=== PATIENT | female | born 1960 | race Two or more races ===

== ENCOUNTER → 2017-03-24 | Outpatient (CLI) | payer MEDICARE ==
[~2017-03-24] MED LIST: CARV6.2551 PO; LASIX PO; LEVOTHYROXINE PO; LORA1TAB12 PO; MAGN400T5 OR; OMEPRAZOLE PO; POT20T PO; PREN-96 PO
== END | disposition home or self-care (01) ==
LOC: Rad HDHVI 09:10
PROVIDERS: ATTEND Internal Medicine Cardiovascular Disease
DX: I50.23 Acute on chronic systolic (congestive) heart failure (principal); I42.0 Dilated cardiomyopathy
CPT/HCPCS: 93306

== ENCOUNTER → 2017-09-07 | Outpatient (CLI) | payer MEDICARE ==
[~2017-09-07] VITALS: Ht 165.1 cm; Wt 71.2 kg
== END | disposition home or self-care (01) ==
LOC: Rad HDHVI 13:17
PROVIDERS: ATTEND Internal Medicine Cardiovascular Disease
DX: I11.0 Hypertensive heart disease with heart failure (principal); I50.23 Acute on chronic systolic (congestive) heart failure; E78.00 Pure hypercholesterolemia, unspecified; I42.0 Dilated cardiomyopathy
CPT/HCPCS: 78472; 96374; A9505; 96375

== ENCOUNTER → 2017-09-26 | Outpatient (CLI) | payer MEDICARE ==
[2017-09-26 16:24] LABS: Basophils # (auto) 0.1 uL; Lymphocytes # (auto) 0.7 uL; Monocytes # (auto) 0.5 uL; Neutrophils # (auto) 2.3 uL; White Blood Cell 3.9 10^3/uL (4.4-10.8)
[2017-09-26 16:26] LABS: Basophils % (auto) 2.2 % (0.0-2.0); Eosinophils # (auto) 0.4 uL; Hematocrit 43.9 % (36.0-46.0); Hemoglobin 15.2 g/dL (12.2-16.2); Lymphocytes % (auto) 17.8 % (10.0-50.0); Mean Corpuscular Hemoglobin 35.1 pg (28.0-32.0); Mean Corpuscular Hgb Conc. 34.7 g/dL (32.0-36.0); Mean Corpuscular Volume 101.3 fL (80.0-100.0); Mean Platelet Volume 9.4 fL (6.9-10.8); Monocytes % (auto) 11.7 % (0.0-12.0); Neutrophils % (auto) 59.3 % (37.0-80.0); Nucleated Red Blood Cells % 0.2 %; Platelet Count (auto) 242 10^3/uL (140-450); Red Cell Distribution Width 13.1 % (11.8-14.3)
[2017-09-26 16:29] LABS: Urine Bilirubin Negative (Negative); Urine Blood Negative /uL (Negative); Urine Color Yellow (Yellow); Urine Glucose Normal (Normal); Urine Ketone Negative (Negative); Urine Nitrite Negative (Negative); Urine Urobilinogen Normal (Negative); Urine pH 7.5 (5.0-8.0)
[2017-09-26 16:40] LABS: Albumin 3.7 g/dL (3.4-5.0); BUN/Creatinine Ratio 19.4; Bilirubin, Direct 0.1 mg/dL (0-0.2); Bilirubin, Total 0.5 mg/dL (0.2-1.0); Calcium 9.3 mg/dL (8.5-10.1); Potassium 3.9 mmol/L (3.5-5.1); Total Protein 8.3 g/dL (6.4-8.2)
== END | disposition home or self-care (01) ==
LOC: Rad HDHVI 10:58
PROVIDERS: ATTEND Internal Medicine Cardiovascular Disease
DX: I10 Essential (primary) hypertension (principal); E11.9 Type 2 diabetes mellitus without complications; E78.00 Pure hypercholesterolemia, unspecified; E03.9 Hypothyroidism, unspecified; K74.1 Hepatic sclerosis; D64.9 Anemia, unspecified; E55.9 Vitamin D deficiency, unspecified; N39.0 Urinary tract infection, site not specified; I42.0 Dilated cardiomyopathy
CPT/HCPCS: 36415; 80048; 80061; 80076; 81003; 82306; 83036; 84439; 84443; 85025; 93306

== ENCOUNTER → 2018-02-28 | Outpatient (CLI) | payer MEDICARE ==
[~2018-02-28] MED LIST changes: +ASPI81TA27 PO; +BENA5TAB5 PO
[2018-02-28 14:20] VITALS: BP 143/80
[2018-02-28 15:00] VITALS: BP 134/70
[2018-02-28 15:48] LABS: Basophils # (auto) 0.1 uL; Basophils % (auto) 1.2 % (0.0-2.0); Eosinophils # (auto) 0.1 uL; Lymphocytes # (auto) 0.9 uL; Nucleated Red Blood Cells % 0.3 %
[2018-02-28 15:50] LABS: Hematocrit 43.3 % (36.0-46.0); Lymphocytes % (auto) 20.2 % (10.0-50.0); Mean Corpuscular Hemoglobin 33.9 pg (28.0-32.0); Mean Corpuscular Hgb Conc. 34.6 g/dL (32.0-36.0); Mean Corpuscular Volume 98.2 fL (80.0-100.0); Monocytes # (auto) 0.5 uL; Monocytes % (auto) 11.7 % (0.0-12.0); Neutrophils # (auto) 2.8 uL; Neutrophils % (auto) 63.9 % (37.0-80.0); Platelet Count (auto) 249 10^3/uL (140-450); Red Blood Cells 4.41 10^6/uL (4.0-5.20); Red Cell Distribution Width 13.4 % (11.8-14.3); White Blood Cell 4.4 10^3/uL (4.4-10.8)
[2018-02-28 16:01] LABS: INR 1.02 (0.9-1.15); Partial Thromboplastin Time 27.8 sec (22.64-33.71); Prothrombin Time 11.1 sec (9.37-12.3)
[2018-02-28 16:04] LABS: BUN/Creatinine Ratio 21.4; Calcium 9.2 mg/dL (8.5-10.1); Potassium 3.8 mmol/L (3.5-5.1)
== END | disposition home or self-care (01) ==
LOC: Rad HDHVI 14:04
PROVIDERS: ATTEND Internal Medicine Cardiovascular Disease
DX: Z01.818 Encounter for other preprocedural examination (principal); I51.7 Cardiomegaly; K44.9 Diaphragmatic hernia without obstruction or gangrene; Z79.01 Long term (current) use of anticoagulants
CPT/HCPCS: 36415; 71046; 80048; 85025; 85610; 85730; 93005; G0463

== ENCOUNTER 2018-03-02 09:50 | Inpatient (IN) | payer MEDICARE ==
[~2018-03-02] VITALS: Ht 165.1 cm; Wt 74.8 kg
[2018-03-02] MEDS ORDERED: LIDOCAINE 2%HCL (LOCAL ANESTH.) INJ 20ML MDV ONE (10:58)
[2018-03-02] MEDS ORDERED: VANCOMYCIN 1GM/250ML 250 ML IV ONE (11:05)
[2018-03-02] MEDS ORDERED: ceFAZolin 1GM/50ML 50 ML IV ONE (11:05)
[2018-03-02] MEDS ORDERED: fentaNYL CITRATE 100 MCG/2 ML VL ONE (11:05)
[2018-03-02] MEDS ORDERED: MIDAZOLAM HCL 1MG/1ML-2 ML VIAL ONE ×2 (11:05→12:35)
[2018-03-02] MEDS ORDERED: VANCOMYCIN HCL 1000 MG VL ONE (11:05)
[2018-03-02] MEDS ORDERED: LORazepam 0.5 MG TAB PO PRN (13:15)
[2018-03-02] MEDS ORDERED: ACETAMINOPHEN 325 MG TAB PO PRN (13:15)
[2018-03-02] MEDS ORDERED: NITROGLYCERIN 0.4 MG SL TAB SL PRN (13:15)
[2018-03-02] MEDS ORDERED: MORPHINE SULFATE 8mg/ml INJ SDV IV PRN (13:15)
[2018-03-02 16:17] VITALS: BP 118/71
[2018-03-02] MEDS: HYDROcodone-ACET 5/325MG TAB PO PRN (18:40)
[2018-03-02 20:00] VITALS: BP 106/72
[2018-03-02] MEDS: VANCOMYCIN 1GM/250ML 250 ML IV SCH (22:09)
[2018-03-02] MEDS: CARVEDILOL 3.125 MG TAB PO SCH (22:10)
[2018-03-02 23:35] VITALS: BP 106/72
[2018-03-03 04:53] VITALS: BP 122/70
[2018-03-03] MEDS: HYDROcodone-ACET 5/325MG TAB PO PRN (04:58)
[2018-03-03] MEDS ORDERED: LEVOTHYROXINE SODIUM 25 MCG TAB PO SCH (07:00)
[2018-03-03 08:00] VITALS: BP 131/74
[2018-03-03 08:27] VITALS: BP 131/74
[2018-03-03] MEDS: CARVEDILOL 3.125 MG TAB PO SCH (09:47)
[2018-03-03] MEDS: VANCOMYCIN 1GM/250ML 250 ML IV SCH (09:49)
[2018-03-03] MEDS ORDERED: PRENATAL VITAMIN TAB PO SCH (10:00)
[2018-03-03] MEDS ORDERED: POTASSIUM CHL 20 Meq TABLET PO SCH (10:00)
[2018-03-03] MEDS ORDERED: PANTOPRAZOLE 40 MG TAB PO SCH (10:00)
[2018-03-03] MEDS ORDERED: LISINOPRIL 5 MG TAB PO SCH (10:00)
[2018-03-03] MEDS ORDERED: FUROSEMIDE 40 MG TAB PO SCH (10:00)
[2018-03-03 11:27] VITALS: BP 121/79
[2018-03-03 13:39] VITALS: BP 121/79
== END 2018-03-03 17:00 | disposition home or self-care (01) | DRG 227 ==
LOC: CATH 09:50 → TELE-CENTR 09:51
PROVIDERS: ADMIT Internal Medicine Cardiovascular Disease; ATTEND Internal Medicine Cardiovascular Disease
PROC: 0JPT0PZ Removal of Cardiac Rhythm Related Device from Trunk Subcutaneous Tissue and Fascia, Open Approach (ICD-10-PCS; principal; 2018-03-02)
PROC: 0JH609Z Insertion of Cardiac Resynchronization Defibrillator Pulse Generator into Chest Subcutaneous Tissue and Fascia, Open Approach (ICD-10-PCS; 2018-03-02)
PROC: 02HK3KZ Insertion of Defibrillator Lead into Right Ventricle, Percutaneous Approach (ICD-10-PCS; 2018-03-02)
DX: T82.110A Breakdown (mechanical) of cardiac electrode, initial encounter (principal); I44.2 Atrioventricular block, complete; I42.0 Dilated cardiomyopathy; I50.22 Chronic systolic (congestive) heart failure; Y83.8 Other surgical procedures as the cause of abnormal reaction of the patient, or of later complication, without mention of misadventure at the time of the procedure; Z95.810 Presence of automatic (implantable) cardiac defibrillator; Y92.89 Other specified places as the place of occurrence of the external cause; Z45.02 Encounter for adjustment and management of automatic implantable cardiac defibrillator
CPT/HCPCS: 33216; 33264; 36415; 71045; 71046; 80048; 85025; 85610; 85730; 93005; 99152; G0463; J0690; J2250

== ENCOUNTER → 2018-10-03 | Outpatient (CLI) | payer MEDICARE, BC | END | disposition home or self-care (01) | LOC: Rad HDHVI 10:06 | PROVIDERS: ATTEND Internal Medicine Cardiovascular Disease | DX: I42.0 Dilated cardiomyopathy (principal); I50.43 Acute on chronic combined systolic (congestive) and diastolic (congestive) heart failure | CPT/HCPCS: 93306 ==

== ENCOUNTER → 2018-10-09 | Outpatient (CLI) | payer MEDICARE, BC ==
[~2018-10-09] VITALS: Ht 165.1 cm; Wt 68.0 kg
[2018-10-09 12:18] LABS: Basophils # (auto) 0.1 uL; Eosinophils # (auto) 0.2 uL; Hemoglobin 14.3 g/dL (12.2-16.2); Lymphocytes # (auto) 0.6 uL; Monocytes # (auto) 0.3 uL
[2018-10-09 12:21] LABS: Basophils % (auto) 2.7 % (0.0-2.0); Eosinophils % (auto) 8.4 % (0.0-7.0); Hematocrit 42.2 % (36.0-46.0); Lymphocytes % (auto) 22.8 % (10.0-50.0); Mean Corpuscular Hemoglobin 33.9 pg (28.0-32.0); Mean Corpuscular Hgb Conc. 33.9 g/dL (32.0-36.0); Mean Corpuscular Volume 100.2 fL (80.0-100.0); Monocytes % (auto) 12.6 % (0.0-12.0); Neutrophils # (auto) 1.4 uL; Neutrophils % (auto) 53.5 % (37.0-80.0); Nucleated Red Blood Cells % 0.5 %; Platelet Count (auto) 231 10^3/uL (140-450); Red Blood Cells 4.21 10^6/uL (4.0-5.20); Red Cell Distribution Width 12.9 % (11.8-14.3); White Blood Cell 2.6 10^3/uL (4.4-10.8)
[2018-10-09 12:34] LABS: Potassium 3.3 mmol/L (3.5-5.1)
[2018-10-09 12:35] LABS: Urine Blood Negative /uL (Negative); Urine Specific Gravity 1.011 (1.001-1.035)
[2018-10-09 12:39] LABS: Free T4 (Free Thyroxine) 0.97 ng/dL (0.89-1.76)
[2018-10-09 12:49] LABS: Albumin 3.5 g/dL (3.4-5.0); BUN/Creatinine Ratio 15.6; Bilirubin, Total 0.4 mg/dL (0.2-1.0); Calcium 8.7 mg/dL (8.5-10.1); Total Protein 7.9 g/dL (6.4-8.2)
== END | disposition home or self-care (01) ==
LOC: Rad HDHVI 09:32
PROVIDERS: ATTEND Internal Medicine Cardiovascular Disease
DX: Z23 Encounter for immunization (principal); I42.0 Dilated cardiomyopathy; I50.43 Acute on chronic combined systolic (congestive) and diastolic (congestive) heart failure; E03.9 Hypothyroidism, unspecified; E55.9 Vitamin D deficiency, unspecified; E11.9 Type 2 diabetes mellitus without complications; D51.9 Vitamin B12 deficiency anemia, unspecified; N39.0 Urinary tract infection, site not specified
CPT/HCPCS: 36415; 78452; 80053; 80061; 81003; 82306; 82607; 83036; 84439; 84443; 85025; 87086; 93017; 96374; A9500

== ENCOUNTER → 2019-01-08 | Outpatient (CLI) | payer BC, MEDICARE, OTHER ==
[2019-01-08 12:39] LABS: Basophils # (auto) 0 uL; Basophils % (auto) 0.9 % (0.0-2.0); Eosinophils # (auto) 0.2 uL; Hematocrit 43.8 % (36.0-46.0); Hemoglobin 15.2 g/dL (12.2-16.2); Lymphocytes # (auto) 0.7 uL; Mean Corpuscular Hemoglobin 33.9 pg (28.0-32.0); Mean Corpuscular Hgb Conc. 34.8 g/dL (32.0-36.0); Mean Corpuscular Volume 97.6 fL (80.0-100.0); Monocytes # (auto) 0.6 uL; Monocytes % (auto) 11.7 % (0.0-12.0); Neutrophils # (auto) 3.8 uL; Neutrophils % (auto) 71.4 % (37.0-80.0); Nucleated Red Blood Cells % 0.2 %; Platelet Count (auto) 243 10^3/uL (140-450); Red Blood Cells 4.49 10^6/uL (4.0-5.20); Red Cell Distribution Width 13.1 % (11.8-14.3); White Blood Cell 5.3 10^3/uL (4.4-10.8)
== END | disposition home or self-care (01) ==
LOC: LAB 10:41
PROVIDERS: ATTEND Internal Medicine Cardiovascular Disease
DX: E03.9 Hypothyroidism, unspecified (principal); D64.9 Anemia, unspecified
CPT/HCPCS: 36415; 84439; 84443; 85025

== ENCOUNTER → 2019-02-20 | Outpatient (CLI) | payer OTHER | END | disposition home or self-care (01) | LOC: LAB 10:24 | PROVIDERS: ATTEND Internal Medicine Cardiovascular Disease | DX: E03.9 Hypothyroidism, unspecified (principal) | CPT/HCPCS: 36415; 84443 ==

== ENCOUNTER → 2019-04-03 | Outpatient (CLI) | payer OTHER | END | disposition home or self-care (01) | LOC: LAB 10:23 | PROVIDERS: ATTEND Internal Medicine Cardiovascular Disease | DX: E03.9 Hypothyroidism, unspecified (principal) | CPT/HCPCS: 36415; 84443 ==

== ENCOUNTER → 2019-04-25 | Outpatient (CLI) | payer OTHER | END | disposition home or self-care (01) | LOC: LAB 13:28 | PROVIDERS: ATTEND Internal Medicine | DX: Z12.11 Encounter for screening for malignant neoplasm of colon (principal) | CPT/HCPCS: 82270 ==

== ENCOUNTER 2019-05-28 08:44 | Day surgery (SDC) | payer OTHER ==
[2019-05-24 13:58] LABS: Basophils # (auto) 0.1 uL; Basophils % (auto) 0.8 % (0.0-2.0); Eosinophils # (auto) 0.2 uL; Eosinophils % (auto) 2.6 % (0.0-7.0); Hematocrit 45.8 % (36.0-46.0); Hemoglobin 15.6 g/dL (12.2-16.2); Lymphocytes # (auto) 0.9 uL; Lymphocytes % (auto) 14.5 % (10.0-50.0); Mean Corpuscular Hemoglobin 33.8 pg (28.0-32.0); Mean Corpuscular Hgb Conc. 34.2 g/dL (32.0-36.0); Mean Corpuscular Volume 98.8 fL (80.0-100.0); Monocytes # (auto) 0.6 uL; Monocytes % (auto) 9.9 % (0.0-12.0); Neutrophils # (auto) 4.7 uL; Neutrophils % (auto) 72.2 % (37.0-80.0); Nucleated Red Blood Cells % 0.1 %; Platelet Count (auto) 234 10^3/uL (140-450); Red Blood Cells 4.63 10^6/uL (4.0-5.20); Red Cell Distribution Width 13.5 % (11.8-14.3); White Blood Cell 6.5 10^3/uL (4.4-10.8)
[2019-05-24 14:03] LABS: Urine Bacteria NONE SEEN /hpf (None Seen); Urine Blood Negative /uL (Negative); Urine Specific Gravity 1.021 (1.001-1.035); Urine WBC <1 /hpf (0 - 5)
[2019-05-24 14:15] LABS: INR 1.03 (0.9-1.15); Partial Thromboplastin Time 27.9 sec (23.64-32.05)
[2019-05-24 14:39] LABS: Albumin 3.7 g/dL (3.4-5.0); Calcium 9.5 mg/dL (8.5-10.1); Potassium 3.9 mmol/L (3.5-5.1)
[2019-05-24 14:43] LABS: BUN/Creatinine Ratio 26.3; Bilirubin, Total 0.6 mg/dL (0.2-1.0); Total Protein 8.4 g/dL (6.4-8.2)
[~2019-05-28] VITALS: Ht 165.1 cm; Wt 68.5 kg
[~2019-05-28 08:44] MED LIST changes: +ASPI-404 PO; -ASPI81TA27 PO; -LASIX PO; -OMEPRAZOLE PO; +PANT40TA2 PO; -POT20T PO; +TRIATAB3 PO
[2019-05-28] MEDS ORDERED: KETOROLAC TROMETH 15 mg/ml 1ML VL IV ONE (09:30)
[2019-05-28] MEDS ORDERED: MIDAZOLAM HCL 1MG/1ML-2 ML VIAL IV PRN (09:30)
[2019-05-28] MEDS ORDERED: ePHEDrine SULFATE 50 MG/ML AMP IV PRN (09:30)
[2019-05-28] MEDS ORDERED: ONDANSETRON HCL 4 MG/2 ML VIAL IV ONE (09:30)
[2019-05-28] MEDS ORDERED: HYDROmorphone HCL 2 MG/ML VL IV PRN (09:30)
[2019-05-28] MEDS ORDERED: LABETALOL HCL 5 MG/ML 4ML SYRINGE IV PRN (09:30)
[2019-05-28] MEDS ORDERED: MORPHINE SULFATE 4 MG/ML SYR/VIAL IV ONE (10:00)
[2019-05-28 10:25] VITALS: BP 113/69
== END 2019-05-28 10:39 | disposition home or self-care (01) ==
LOC: GI 08:44
PROVIDERS: ATTEND Internal Medicine Gastroenterology
DX: K22.8 Other specified diseases of esophagus (principal); K29.50 Unspecified chronic gastritis without bleeding; K44.9 Diaphragmatic hernia without obstruction or gangrene; K21.9 Gastro-esophageal reflux disease without esophagitis; E03.9 Hypothyroidism, unspecified; I11.0 Hypertensive heart disease with heart failure; I50.42 Chronic combined systolic (congestive) and diastolic (congestive) heart failure; I42.9 Cardiomyopathy, unspecified; Z79.899 Other long term (current) drug therapy; Z79.82 Long term (current) use of aspirin; Z95.0 Presence of cardiac pacemaker; Z87.891 Personal history of nicotine dependence
CPT/HCPCS: 36415; 43239; 43450; 80053; 81001; 85025; 85610; 85730; 88305; 88342; 93005; J7030

== ENCOUNTER → 2019-08-21 | Outpatient (CLI) | payer OTHER ==
[2019-08-21 13:16] LABS: Cholesterol 220 mg/dL (< 200); HDL Cholesterol 97 mg/dL (40-59); LDL Cholesterol 104 mg/dL (< 100); Triglycerides 116 mg/dL (< 150)
== END | disposition home or self-care (01) ==
LOC: LAB 09:32
PROVIDERS: ATTEND Internal Medicine Cardiovascular Disease
DX: E55.9 Vitamin D deficiency, unspecified (principal); I25.2 Old myocardial infarction; E03.9 Hypothyroidism, unspecified; Z79.899 Other long term (current) drug therapy
CPT/HCPCS: 36415; 80061; 83036

== ENCOUNTER → 2019-12-13 | Outpatient (CLI) | payer OTHER ==
[~2019-12-13] MED LIST changes: +MAGN400T40 OR; -MAGN400T5 OR
== END | disposition home or self-care (01) ==
LOC: Rad HDHVI 13:57
PROVIDERS: ATTEND Internal Medicine Cardiovascular Disease
DX: I34.0 Nonrheumatic mitral (valve) insufficiency (principal); I51.7 Cardiomegaly; I25.5 Ischemic cardiomyopathy; I50.9 Heart failure, unspecified
CPT/HCPCS: 93306

== ENCOUNTER → 2019-12-19 | Outpatient (CLI) | payer OTHER ==
[~2019-12-19] VITALS: Ht 165.1 cm; Wt 73.0 kg
[2019-12-19 12:12] LABS: Urine Blood Negative /uL (Negative); Urine Specific Gravity 1.024 (1.001-1.035)
[2019-12-19 12:22] LABS: Basophils # (auto) 0.1 uL; Basophils % (auto) 1.8 % (0.0-2.0); Eosinophils # (auto) 0.2 uL; Eosinophils % (auto) 7.4 % (0.0-7.0); Hematocrit 42.4 % (36.0-46.0); Hemoglobin 14.7 g/dL (12.2-16.2); Lymphocytes # (auto) 0.7 uL; Lymphocytes % (auto) 23.4 % (10.0-50.0); Mean Corpuscular Hemoglobin 33.8 pg (28.0-32.0); Mean Corpuscular Hgb Conc. 34.7 g/dL (32.0-36.0); Mean Corpuscular Volume 97.5 fL (80.0-100.0); Monocytes # (auto) 0.5 uL; Monocytes % (auto) 15.4 % (0.0-12.0); Neutrophils # (auto) 1.6 uL; Platelet Count (auto) 212 10^3/uL (140-450); Red Blood Cells 4.35 10^6/uL (4.0-5.20); Red Cell Distribution Width 13.4 % (11.8-14.3)
[2019-12-19 12:24] LABS: Potassium 3.7 mmol/L (3.5-5.1)
[2019-12-19 12:34] LABS: Free T4 (Free Thyroxine) 1.34 ng/dL (0.89-1.76); T3 Total 0.74 ng/mL (0.60-1.81)
[2019-12-19 12:53] LABS: Albumin 3.7 g/dL (3.4-5.0); BUN/Creatinine Ratio 19.4; Bilirubin, Total 0.6 mg/dL (0.2-1.0); Calcium 9.1 mg/dL (8.5-10.1); Total Protein 8.1 g/dL (6.4-8.2)
== END | disposition home or self-care (01) ==
LOC: Rad HDHVI 09:17
PROVIDERS: ATTEND Internal Medicine Cardiovascular Disease
DX: Z00.00 Encounter for general adult medical examination without abnormal findings (principal); E03.9 Hypothyroidism, unspecified; K90.9 Intestinal malabsorption, unspecified; N39.0 Urinary tract infection, site not specified; D51.9 Vitamin B12 deficiency anemia, unspecified; I50.43 Acute on chronic combined systolic (congestive) and diastolic (congestive) heart failure; I51.7 Cardiomegaly; I42.0 Dilated cardiomyopathy; E78.2 Mixed hyperlipidemia; R07.89 Other chest pain; Z79.899 Other long term (current) drug therapy
CPT/HCPCS: 36415; 78452; 80053; 80061; 81003; 82306; 82607; 83036; 83880; 84439; 84443; 84480; 85025; 93017; 96374; A9500

== ENCOUNTER → 2020-03-11 | Outpatient (CLI) | payer BC, MEDICARE, OTHER | END | disposition home or self-care (01) | LOC: LAB 11:02 | PROVIDERS: ATTEND Internal Medicine Cardiovascular Disease | DX: E03.9 Hypothyroidism, unspecified (principal) | CPT/HCPCS: 36415; 84439; 84443 ==

== ENCOUNTER → 2020-04-22 | Outpatient (CLI) | payer OTHER | END | disposition home or self-care (01) | LOC: LAB 10:16 | PROVIDERS: ATTEND Internal Medicine | DX: E03.9 Hypothyroidism, unspecified (principal) | CPT/HCPCS: 36415; 84443 ==

== ENCOUNTER → 2020-11-04 | Outpatient (CLI) | payer OTHER ==
[~2020-11-04] MED LIST changes: -ASPI-404 PO; +ASPI-543 PO; +IBUP400T22 PO; +LEVO100T8 PO; +LORA0.5T20 PO; -LORA1TAB12 PO; +LORA1TAB23 PO; +OMEP20TA PO
[2020-11-04 15:51] LABS: Urine Blood Negative /uL (Negative); Urine Specific Gravity 1.016 (1.001-1.035)
[2020-11-04 15:55] LABS: Basophils # (auto) 0.1 10 ^3/uL (0-0.2); Basophils % (auto) 1.7 % (0.0-2.0); Eosinophils # (auto) 0.2 10 ^3/uL (0-0.8); Eosinophils % (auto) 5.2 % (0.0-7.0); Hematocrit 28.2 % (36.0-46.0); Hemoglobin 8.9 g/dL (12.2-16.2); Lymphocytes # (auto) 1.1 10 ^3/uL (0.4-5.4); Lymphocytes % (auto) 25.2 % (10.0-50.0); Mean Corpuscular Hemoglobin 23.7 pg (28.0-32.0); Mean Corpuscular Hgb Conc. 31.4 g/dL (32.0-36.0); Mean Corpuscular Volume 75.5 fL (80.0-100.0); Monocytes # (auto) 0.4 10 ^3/uL (0-1.3); Neutrophils # (auto) 2.6 10 ^3/uL (1.6-8.6); Neutrophils % (auto) 58.9 % (37.0-80.0); Nucleated Red Blood Cells % 0.1 %; Red Blood Cells 3.74 10^6/uL (4.0-5.20); Red Cell Distribution Width 18.1 % (11.8-14.3); White Blood Cell 4.4 10^3/uL (4.4-10.8)
[2020-11-04 16:01] LABS: Albumin 3.7 g/dL (3.4-5.0); Potassium 3.8 mmol/L (3.5-5.1)
[2020-11-04 16:12] LABS: BUN/Creatinine Ratio 29.7; Bilirubin, Total 0.4 mg/dL (0.2-1.0); Calcium 8.8 mg/dL (8.5-10.1); Total Protein 7.8 g/dL (6.4-8.2)
[2020-11-04 18:51] LABS: Free T4 (Free Thyroxine) 1.05 ng/dL (0.89-1.76)
== END | disposition home or self-care (01) ==
LOC: LAB 13:10
PROVIDERS: ATTEND Internal Medicine Cardiovascular Disease
DX: D51.3 Other dietary vitamin B12 deficiency anemia (principal); I10 Essential (primary) hypertension; E11.9 Type 2 diabetes mellitus without complications; E55.9 Vitamin D deficiency, unspecified; R53.1 Weakness; R00.2 Palpitations; R30.0 Dysuria
CPT/HCPCS: 36415; 80053; 80061; 81003; 82306; 82607; 83036; 84439; 84443; 85025

== ENCOUNTER → 2020-12-12 | Outpatient (CLI) | payer OTHER ==
[~2020-12-12] MED LIST changes: -IBUP400T22 PO; -LEVO100T8 PO; -LORA0.5T20 PO; -OMEP20TA PO
== END | disposition home or self-care (01) ==
LOC: LAB 14:34
PROVIDERS: ATTEND Internal Medicine
DX: E78.5 Hyperlipidemia, unspecified (principal); D64.9 Anemia, unspecified; E03.9 Hypothyroidism, unspecified
CPT/HCPCS: 82270

== ENCOUNTER 2021-01-06 16:41 | Inpatient (IN) | payer OTHER ==
[~2021-01-06] VITALS: Ht 165.1 cm; Wt 79.9 kg
[~2021-01-06 16:41] MED LIST changes: -BENA5TAB5 PO; +BENA5TAB9 PO; -IBUP400T22 PO; -LEVO100T8 PO; -LORA0.5T20 PO; -OMEP20TA PO
[2021-01-06 17:58] LABS: Hematocrit 20.2 % (36.0-46.0); Mean Corpuscular Volume 70.4 fL (80.0-100.0); Red Blood Cells 2.87 10^6/uL (4.0-5.20); White Blood Cell 4.2 10^3/uL (4.4-10.8)
[2021-01-06 18:00] LABS: Mean Corpuscular Hemoglobin 21.4 pg (28.0-32.0); Mean Corpuscular Hgb Conc. 30.3 g/dL (32.0-36.0)
[2021-01-06 18:03] LABS: Basophils % (manual) 0 (0.0-2.0); Blast Cells 0; Hemoglobin 6.1 g/dL (12.2-16.2); Myelocytes % 0; Promyelocytes % 0; Reactive Lymphocytes 0
[2021-01-06 18:17] LABS: INR 1.07 (0.9-1.15)
[2021-01-06 18:18] LABS: Albumin 3.2 g/dL (3.4-5.0); Calcium 8.5 mg/dL (8.5-10.1); Magnesium 2.4 mg/dL (1.6-2.6); Potassium 4.3 mmol/L (3.5-5.1)
[2021-01-06 18:24] LABS: BUN/Creatinine Ratio 41.3; Bilirubin, Total 0.2 mg/dL (0.2-1.0); Total Protein 7.4 g/dL (6.4-8.2)
[2021-01-06] MEDS ORDERED: ACETAMINOPHEN 500 MG TAB PO PRN (19:15)
[2021-01-06] MEDS ORDERED: NITROGLYCERIN 0.4 MG SL TAB SL PRN (19:15)
[2021-01-06] MEDS ORDERED: ONDANSETRON HCL 4 MG/2 ML VIAL IV PRN (19:15)
[2021-01-06] MEDS ORDERED: HYDROcodone-ACET 5/325MG TAB PO PRN (19:15)
[2021-01-06] MEDS ORDERED: MORPHINE SULFATE INJECTION 2 MG/ML SYRG IV PRN ×2 (19:15)
[2021-01-06 20:23] LABS: Band Neutrophils % (manual) 2; Eosinophils % (manual) 6 (0-7); Lymphocytes % (manual) 24 (10.0-50.0); Monocytes % (manual) 4 (0-12)
[2021-01-06 20:24] LABS: Metamyelocytes % 1
[2021-01-06 20:41] LABS: % Iron Saturation 1.7 % (15-50)
[2021-01-06 20:49] LABS: Folate (Folic Acid) > 24.00 ng/mL (5.38-24)
[2021-01-06] MEDS: PANTOPRAZOLE 40 MG/10 ML VIAL INJ IV SCH (21:04)
[2021-01-06 22:18] VITALS: BP 139/69
[2021-01-06 22:44] VITALS: BP 124/66
[2021-01-06 23:05] VITALS: BP 119/51
[2021-01-06] MEDS ORDERED: LEVO100T8 PO (23:11)
[2021-01-06] MEDS ORDERED: LORA0.5T20 PO (23:11)
[2021-01-06] MEDS ORDERED: OMEP20TA PO (23:11)
[2021-01-07] VITALS (8 sets, daily range): BP systolic 109–148; BP diastolic 52–88
[2021-01-07 06:29] LABS: Red Blood Cells 3.04 10^6/uL (4.0-5.20); White Blood Cell 3.6 10^3/uL (4.4-10.8)
[2021-01-07 06:33] LABS: Hematocrit 21.9 % (36.0-46.0); Mean Corpuscular Hemoglobin 22.8 pg (28.0-32.0); Mean Corpuscular Hgb Conc. 31.6 g/dL (32.0-36.0); Mean Corpuscular Volume 72.2 fL (80.0-100.0)
[2021-01-07 06:39] LABS: Red Cell Distribution Width 20.6 % (11.8-14.3)
[2021-01-07 06:41] LABS: Hemoglobin 6.9 g/dL (12.2-16.2)
[2021-01-07 06:43] LABS: Band Neutrophils % (manual) 0; Basophils % (manual) 0 (0.0-2.0); Blast Cells 0; Metamyelocytes % 0; Myelocytes % 0; Promyelocytes % 0; Reactive Lymphocytes 0
[2021-01-07 06:46] LABS: Albumin 3.1 g/dL (3.4-5.0); Calcium 8.4 mg/dL (8.5-10.1); Potassium 3.7 mmol/L (3.5-5.1)
[2021-01-07 06:50] LABS: BUN/Creatinine Ratio 41.2; Bilirubin, Total 0.5 mg/dL (0.2-1.0); Total Protein 6.8 g/dL (6.4-8.2)
[2021-01-07 08:33] LABS: Eosinophils % (manual) 16 (0-7); Lymphocytes % (manual) 13 (10.0-50.0); Monocytes % (manual) 7 (0-12)
[2021-01-07] MEDS ORDERED: IBUP400T22 PO (09:51)
[2021-01-07 11:16] LABS: Hemoglobin 7.4 g/dL (12.2-16.2)
[2021-01-07 11:19] LABS: Hematocrit 23.1 % (36.0-46.0)
[2021-01-07 12:10] LABS: Urine Bacteria FEW /hpf (None Seen); Urine Blood Negative /uL (Negative); Urine Specific Gravity 1.018 (1.001-1.035); Urine WBC 1 /hpf (0 - 5)
[2021-01-07] MEDS ORDERED: METOCLOPRAMIDE HCL 5MG/ml INJ 2ml VIAL IV ONE (13:15)
[2021-01-07] MEDS ORDERED: OPTISON 3ml Vial for INJ IV ONE ×2 (14:00→14:02)
[2021-01-07] MEDS ORDERED: LIDOCAINE VISCOUS 2% 15ML UD ONE (15:15)
[2021-01-07] MEDS ORDERED: diphenhdrAMINE HCL 50 MG/1 ML VL ONE (15:15)
[2021-01-07] MEDS: fentaNYL CITRATE 100 MCG/2 ML VL ONE ×2 (15:35→15:38)
[2021-01-07] MEDS: MIDAZOLAM HCL 5 MG/ML-1ML VIAL ONE ×2 (15:35→15:38)
[2021-01-07] MEDS: PANTOPRAZOLE 40 MG/10 ML VIAL INJ IV SCH ×2 (18:30→21:56)
[2021-01-07] MEDS: FERROUS SULFATE 325mg EC TAB PO SCH (18:31)
[2021-01-07] MEDS: SUCRALFATE 1 GM/10 ML ORAL SUSP PO SCH ×2 (18:31→21:55)
[2021-01-08] VITALS (8 sets, daily range): BP systolic 111–139; BP diastolic 42–83
[2021-01-08 06:26] LABS: Hemoglobin 8.8 g/dL (12.2-16.2)
[2021-01-08 06:28] LABS: Hematocrit 27.3 % (36.0-46.0); Mean Corpuscular Hemoglobin 24.5 pg (28.0-32.0); Mean Corpuscular Hgb Conc. 32.2 g/dL (32.0-36.0); Mean Corpuscular Volume 76.1 fL (80.0-100.0); Red Blood Cells 3.59 10^6/uL (4.0-5.20); White Blood Cell 3.1 10^3/uL (4.4-10.8)
[2021-01-08 06:30] LABS: Calcium 8.1 mg/dL (8.5-10.1); Potassium 3.9 mmol/L (3.5-5.1)
[2021-01-08] MEDS: SUCRALFATE 1 GM/10 ML ORAL SUSP PO SCH ×2 (06:32→11:36)
[2021-01-08 06:33] LABS: BUN/Creatinine Ratio 27.3
[2021-01-08 06:47] LABS: Red Cell Distribution Width 21.7 % (11.8-14.3)
[2021-01-08 06:48] LABS: Band Neutrophils % (manual) 0; Basophils % (manual) 0 (0.0-2.0); Blast Cells 0; Metamyelocytes % 0; Myelocytes % 0; Promyelocytes % 0; Reactive Lymphocytes 0
[2021-01-08 07:41] LABS: Eosinophils % (manual) 3 (0-7); Lymphocytes % (manual) 19 (10.0-50.0); Monocytes % (manual) 20 (0-12)
[2021-01-08] MEDS ORDERED: POTASSIUM CHL 20 Meq TABLET PO ONE (08:00)
[2021-01-08] MEDS ORDERED: FUROSEMIDE 40 MG/4 ML VIAL IV ONE (08:00)
[2021-01-08] MEDS: FERROUS SULFATE 325mg EC TAB PO SCH (10:30)
[2021-01-08] MEDS: PANTOPRAZOLE 40 MG/10 ML VIAL INJ IV SCH (10:31)
== END 2021-01-08 14:00 | disposition home or self-care (01) | DRG 811 ==
LOC: ER 16:41 → TELE 19:10 → TELE-CENTR 21:49
PROVIDERS: ADMIT Nurse Practitioner Acute Care; ATTEND Internal Medicine
PROC: 0DB68ZX Excision of Stomach, Via Natural or Artificial Opening Endoscopic, Diagnostic (ICD-10-PCS; 2021-01-07)
PROC: 30233N1 Transfusion of Nonautologous Red Blood Cells into Peripheral Vein, Percutaneous Approach (ICD-10-PCS; 2021-01-07)
PROC: 0DB98ZX Excision of Duodenum, Via Natural or Artificial Opening Endoscopic, Diagnostic (ICD-10-PCS; principal; 2021-01-07 15:38)
DX: D64.9 Anemia, unspecified (principal); I50.33 Acute on chronic diastolic (congestive) heart failure; E03.9 Hypothyroidism, unspecified; K44.9 Diaphragmatic hernia without obstruction or gangrene; F17.210 Nicotine dependence, cigarettes, uncomplicated; I11.0 Hypertensive heart disease with heart failure; K29.90 Gastroduodenitis, unspecified, without bleeding; Z20.828 Contact with and (suspected) exposure to other viral communicable diseases; Z79.82 Long term (current) use of aspirin; Z80.9 Family history of malignant neoplasm, unspecified; Z82.49 Family history of ischemic heart disease and other diseases of the circulatory system; Z83.3 Family history of diabetes mellitus; Z87.11 Personal history of peptic ulcer disease; Z95.0 Presence of cardiac pacemaker
CPT/HCPCS: 36415; 36430; 43239; 71275; 80048; 80053; 81001; 82270; 82306; 82746; 83540; 83550; 83735; 83880; 84425; 84443; 84484; 85007; 85014; 85018; 85027; 85379; 85610; 85730; 86850; 86900; 86901; 86922; 87086; 87426; 93005; 93306; 93971; 96374; C9113; G0378; J2250; Q9956

== ENCOUNTER → 2021-01-06 | Outpatient (CLI) | payer OTHER ==
[~2021-01-06] MED LIST changes: +IBUP400T22 PO; +IOPAMIDOL 76 % (ISOVUE-370) 100ML BTL IV ONE; +LEVO100T8 PO; +LORA0.5T20 PO; +OMEP20TA PO
[2021-01-06 16:09] LABS: Hematocrit 20.8 % (36.0-46.0); Mean Corpuscular Hemoglobin 21.4 pg (28.0-32.0); Red Blood Cells 2.98 10^6/uL (4.0-5.20); White Blood Cell 3.8 10^3/uL (4.4-10.8)
[2021-01-06 16:13] LABS: Mean Corpuscular Hgb Conc. 30.7 g/dL (32.0-36.0); Mean Corpuscular Volume 69.8 fL (80.0-100.0); Platelet Count (auto) 322 10^3/uL (140-450); Red Cell Distribution Width 19.1 % (11.8-14.3)
[2021-01-06 16:19] LABS: Hemoglobin 6.4 g/dL (12.2-16.2)
[2021-01-06 16:20] LABS: Basophils % (manual) 0 (0.0-2.0); Blast Cells 0; Metamyelocytes % 0; Myelocytes % 0; Promyelocytes % 0; Reactive Lymphocytes 0
[2021-01-06 17:28] LABS: Band Neutrophils % (manual) 1; Eosinophils % (manual) 10 (0-7); Lymphocytes % (manual) 32 (10.0-50.0); Monocytes % (manual) 10 (0-12)
== END | disposition home or self-care (01) ==
LOC: LAB 15:31
PROVIDERS: ATTEND Internal Medicine
DX: D72.819 Decreased white blood cell count, unspecified (principal)
CPT/HCPCS: 36415; 85007; 85027; Q9967

== ENCOUNTER → 2021-01-06 | Outpatient (CLI) | payer OTHER ==
[~2021-01-06] MED LIST changes: -IOPAMIDOL 76 % (ISOVUE-370) 100ML BTL IV ONE
== END | disposition home or self-care (01) ==
LOC: XYW 15:48
PROVIDERS: ATTEND Internal Medicine
DX: M79.89 Other specified soft tissue disorders (principal)
CPT/HCPCS: 93971

== ENCOUNTER → 2021-03-05 | Outpatient (CLI) | payer OTHER ==
[~2021-03-05] MED LIST changes: +BENA5TAB5 PO; -BENA5TAB9 PO; +IBUP400T22 PO; +LEVO100T8 PO; -LEVOTHYROXINE PO; +LORA0.5T20 PO; -LORA1TAB23 PO; +OMEP20TA PO; -PANT40TA2 PO; -PREN-96 PO
[2021-03-05 13:09] LABS: Basophils # (auto) 0 10 ^3/uL (0-0.2); Platelet Count (auto) 241 10^3/uL (140-450)
[2021-03-05 13:11] LABS: Basophils % (auto) 0.7 % (0.0-2.0); Eosinophils # (auto) 0.2 10 ^3/uL (0-0.8); Eosinophils % (auto) 2.9 % (0.0-7.0); Hematocrit 40.6 % (36.0-46.0); Hemoglobin 13.2 g/dL (12.2-16.2); Lymphocytes # (auto) 0.8 10 ^3/uL (0.4-5.4); Lymphocytes % (auto) 13.8 % (10.0-50.0); Mean Corpuscular Hemoglobin 26.5 pg (28.0-32.0); Mean Corpuscular Hgb Conc. 32.4 g/dL (32.0-36.0); Mean Corpuscular Volume 81.9 fL (80.0-100.0); Monocytes # (auto) 0.5 10 ^3/uL (0-1.3); Neutrophils # (auto) 4.2 10 ^3/uL (1.6-8.6); Neutrophils % (auto) 73.6 % (37.0-80.0); Nucleated Red Blood Cells % 0.1 %; Red Blood Cells 4.96 10^6/uL (4.0-5.20); White Blood Cell 5.7 10^3/uL (4.4-10.8)
[2021-03-05 13:48] LABS: Red Cell Distribution Width 27.9 % (11.8-14.3)
== END | disposition home or self-care (01) ==
LOC: LAB 12:50
PROVIDERS: ATTEND Internal Medicine
DX: D64.9 Anemia, unspecified (principal)
CPT/HCPCS: 36415; 85025

== ENCOUNTER → 2021-04-17 | Outpatient (CLI) | payer OTHER ==
[2021-04-17 13:52] LABS: Albumin 3.6 g/dL (3.4-5.0); BUN/Creatinine Ratio 32.5; Calcium 9.3 mg/dL (8.5-10.1); Potassium 4.2 mmol/L (3.5-5.1)
[2021-04-17 13:56] LABS: Bilirubin, Total 0.4 mg/dL (0.2-1.0)
== END | disposition home or self-care (01) ==
LOC: LAB 13:06
PROVIDERS: ATTEND Internal Medicine
DX: E78.5 Hyperlipidemia, unspecified (principal); R73.03 Prediabetes
CPT/HCPCS: 36415; 80053; 80061; 82043; 83036

== ENCOUNTER → 2021-05-05 | Outpatient (CLI) | payer OTHER | END | disposition home or self-care (01) | LOC: LAB 14:47 | PROVIDERS: ATTEND Internal Medicine | DX: E03.9 Hypothyroidism, unspecified (principal) | CPT/HCPCS: 36415; 84443 ==

== ENCOUNTER 2021-05-19 16:50 | Inpatient (IN) | payer BC, MEDICARE, OTHER ==
[~2021-05-19] VITALS: Ht 165.1 cm; Wt 71.1 kg
[2021-05-19] MEDS ORDERED: ENOXAPARIN SOD 100 MG/1 ML SYRINGE SC ONE (17:30)
[2021-05-19 17:47] LABS: Basophils # (auto) 0.1 10 ^3/uL (0-0.2); Basophils % (auto) 1.4 % (0.0-2.0); Eosinophils # (auto) 0.1 10 ^3/uL (0-0.8); Eosinophils % (auto) 1.9 % (0.0-7.0); Hematocrit 42.4 % (36.0-46.0); Hemoglobin 14.4 g/dL (12.2-16.2); Lymphocytes # (auto) 1.1 10 ^3/uL (0.4-5.4); Lymphocytes % (auto) 25.2 % (10.0-50.0); Mean Corpuscular Hemoglobin 31.1 pg (28.0-32.0); Mean Corpuscular Hgb Conc. 33.8 g/dL (32.0-36.0); Monocytes # (auto) 0.5 10 ^3/uL (0-1.3); Monocytes % (auto) 11.6 % (0.0-12.0); Neutrophils # (auto) 2.6 10 ^3/uL (1.6-8.6); Neutrophils % (auto) 59.9 % (37.0-80.0); Nucleated Red Blood Cells % 0.1 %; Red Blood Cells 4.61 10^6/uL (4.0-5.20); Red Cell Distribution Width 16.8 % (11.8-14.3); White Blood Cell 4.4 10^3/uL (4.4-10.8)
[2021-05-19 18:04] LABS: Albumin 3.5 g/dL (3.4-5.0); Calcium 8.8 mg/dL (8.5-10.1); Potassium 3.8 mmol/L (3.5-5.1)
[2021-05-19 18:07] LABS: Bilirubin, Total 0.4 mg/dL (0.2-1.0); Total Protein 7.1 g/dL (6.4-8.2)
[2021-05-19 18:14] LABS: INR 1.07 (0.9-1.15); Partial Thromboplastin Time 27.4 sec (23.0-31.2)
[2021-05-19] MEDS ORDERED: NITROGLYCERIN 0.4 MG SL TAB SL PRN (20:15)
[2021-05-19] MEDS ORDERED: MORPHINE SULF INJ 2 MG/ML SYRINGE 1ML IV PRN ×2 (20:15)
[2021-05-19] MEDS ORDERED: ONDANSETRON HCL 4 MG/2 ML VIAL IV PRN (20:15)
[2021-05-19] MEDS ORDERED: ACETAMINOPHEN 500 MG TAB PO PRN (20:15)
[2021-05-19] MEDS: CARVEDILOL 3.125 MG TAB PO SCH ×2 (22:00→22:44)
[2021-05-19 22:30] VITALS: BP 105/61
[2021-05-19] MEDS: LORazepam 2MG/ML-1ML VIAL IV PRN (22:44)
[2021-05-20 01:40] VITALS: BP 105/61
[2021-05-20] MEDS ORDERED: PANT40TA2 PO (02:12)
[2021-05-20] MEDS: HYDROcodone-ACET 5/325MG TAB PO PRN (03:21)
[2021-05-20 05:00] VITALS: BP 119/76
[2021-05-20 09:00] VITALS: BP 124/81
[2021-05-20] MEDS: ENOXAPARIN SOD 80 MG/0.8ML SYRINGE SC SCH ×2 (09:06→21:32)
[2021-05-20] MEDS: BENAZEPRIL HCL 10 MG TAB PO SCH (09:06)
[2021-05-20] MEDS: LORazepam 2MG/ML-1ML VIAL IV PRN ×2 (09:07→21:32)
[2021-05-20] MEDS: CARVEDILOL 3.125 MG TAB PO SCH ×2 (09:07→21:32)
[2021-05-20] MEDS ORDERED: IOHEXOL 300 MG/ML 100ML BOTTLE IJ ONE (12:01)
[2021-05-20 13:09] VITALS: BP 116/66
[2021-05-20 16:54] VITALS: BP 102/70
[2021-05-20 22:00] VITALS: BP 122/82
[2021-05-21] MEDS: HYDROcodone-ACET 5/325MG TAB PO PRN (01:40)
[2021-05-21 05:00] VITALS: BP 109/68
[2021-05-21] MEDS: LORazepam 2MG/ML-1ML VIAL IV PRN (05:46)
[2021-05-21 09:30] VITALS: BP 111/73
[2021-05-21] MEDS: BENAZEPRIL HCL 10 MG TAB PO SCH (10:00)
[2021-05-21] MEDS ORDERED: PANTOPRAZOLE 40 MG TAB PO SCH (10:00)
[2021-05-21] MEDS: ENOXAPARIN SOD 80 MG/0.8ML SYRINGE SC SCH (10:14)
[2021-05-21] MEDS: CARVEDILOL 3.125 MG TAB PO SCH (10:15)
[2021-05-21 16:30] VITALS: BP 107/73
== END 2021-05-21 17:15 | disposition home or self-care (01) | DRG 300 ==
LOC: ER 16:50 → TELE 20:47 → TELE-WESTW 22:28 → WEST WING 05-21 12:04
PROVIDERS: ADMIT Nurse Practitioner Acute Care; ATTEND Internal Medicine
DX: I82.A12 Acute embolism and thrombosis of left axillary vein (principal); I50.22 Chronic systolic (congestive) heart failure; K21.9 Gastro-esophageal reflux disease without esophagitis; G47.00 Insomnia, unspecified; E78.5 Hyperlipidemia, unspecified; E03.9 Hypothyroidism, unspecified; Z20.822 Contact with and (suspected) exposure to COVID-19; D64.9 Anemia, unspecified; I11.0 Hypertensive heart disease with heart failure; I80.9 Phlebitis and thrombophlebitis of unspecified site; Z80.9 Family history of malignant neoplasm, unspecified; Z82.49 Family history of ischemic heart disease and other diseases of the circulatory system; Z83.3 Family history of diabetes mellitus; Z86.73 Personal history of transient ischemic attack (TIA), and cerebral infarction without residual deficits; Z87.11 Personal history of peptic ulcer disease; Z87.891 Personal history of nicotine dependence
CPT/HCPCS: 36415; 71260; 74177; 80053; 81241; 82378; 84443; 85025; 85379; 85610; 85652; 85730; 86301; 86304; 87426; 93971; 96372; G0378

== ENCOUNTER → 2021-05-25 | Outpatient (CLI) | payer OTHER ==
[~2021-05-25] MED LIST changes: -BENA5TAB5 PO; +PANT40TA2 PO
== END | disposition home or self-care (01) ==
LOC: Rad HDHVI 13:50
PROVIDERS: ATTEND Internal Medicine Cardiovascular Disease
DX: I10 Essential (primary) hypertension (principal); E78.5 Hyperlipidemia, unspecified
CPT/HCPCS: 93306

== ENCOUNTER → 2021-06-03 | Outpatient (CLI) | payer OTHER ==
[~2021-06-03] VITALS: Ht 182.9 cm; Wt 66.7 kg
== END | disposition home or self-care (01) ==
LOC: Rad HDHVI 09:25
PROVIDERS: ATTEND Internal Medicine Cardiovascular Disease
DX: I11.0 Hypertensive heart disease with heart failure (principal); I50.43 Acute on chronic combined systolic (congestive) and diastolic (congestive) heart failure; I42.0 Dilated cardiomyopathy; E78.5 Hyperlipidemia, unspecified; I25.2 Old myocardial infarction; Z95.0 Presence of cardiac pacemaker
CPT/HCPCS: 78452; 93017; 96374; A9500

== ENCOUNTER 2021-06-05 03:36 | Emergency (ER) | payer OTHER ==
[~2021-06-05] VITALS: Ht 165.1 cm; Wt 68.0 kg
[2021-06-05 08:26] VITALS: BP 121/58
== END 2021-06-05 08:31 | disposition home or self-care (01) ==
LOC: ER 03:36 → EDBD 03:36 → ER 08:26
DX: F41.1 Generalized anxiety disorder (principal); T50.905A Adverse effect of unspecified drugs, medicaments and biological substances, initial encounter; H60.92 Unspecified otitis externa, left ear; R07.89 Other chest pain; Z87.891 Personal history of nicotine dependence; Z95.0 Presence of cardiac pacemaker; Z79.899 Other long term (current) drug therapy; Y92.89 Other specified places as the place of occurrence of the external cause
CPT/HCPCS: 93005

== ENCOUNTER → 2021-06-10 | Outpatient (CLI) | payer MEDICARE, OTHER ==
[2021-06-10 16:58] LABS: Folate (Folic Acid) > 24.00 ng/mL (5.38-24)
[2021-06-11 07:06] LABS: RPR Non Reactive (Non Reactive)
== END | disposition home or self-care (01) ==
LOC: LAB 15:28
PROVIDERS: ATTEND Internal Medicine
DX: I50.22 Chronic systolic (congestive) heart failure (principal); I51.7 Cardiomegaly; E03.9 Hypothyroidism, unspecified; R73.03 Prediabetes
CPT/HCPCS: 36415; 82607; 82746; 84443; 85652; 86592

== ENCOUNTER → 2021-09-09 | Day surgery (SDC) | payer OTHER ==
[2021-09-04 14:39] LABS: Basophils # (auto) 0 10 ^3/uL (0-0.2); Basophils % (auto) 1.3 % (0.0-2.0); Eosinophils # (auto) 0.2 10 ^3/uL (0-0.8); Eosinophils % (auto) 4.3 % (0.0-7.0); Hematocrit 39.9 % (36.0-46.0); Hemoglobin 13.5 g/dL (12.2-16.2); Lymphocytes % (auto) 25.5 % (10.0-50.0); Mean Corpuscular Hemoglobin 32.7 pg (28.0-32.0); Mean Corpuscular Volume 96.3 fL (80.0-100.0); Monocytes # (auto) 0.5 10 ^3/uL (0-1.3); Monocytes % (auto) 14.2 % (0.0-12.0); Neutrophils # (auto) 2.1 10 ^3/uL (1.6-8.6); Neutrophils % (auto) 54.7 % (37.0-80.0); Red Blood Cells 4.14 10^6/uL (4.0-5.20); Red Cell Distribution Width 13.4 % (11.8-14.3); White Blood Cell 3.8 10^3/uL (4.4-10.8)
[2021-09-04 15:22] LABS: Albumin 3.8 g/dL (3.4-5.0); Calcium 9.1 mg/dL (8.5-10.1); Potassium 4.3 mmol/L (3.5-5.1)
[2021-09-04 15:24] LABS: BUN/Creatinine Ratio 31.8
[2021-09-04 15:26] LABS: Bilirubin, Total 0.4 mg/dL (0.2-1.0); Total Protein 7.8 g/dL (6.4-8.2)
[~2021-09-09] VITALS: Ht 165.1 cm; Wt 72.6 kg
[~2021-09-09] MED LIST changes: +BENA10TA15 PO; +PRENCAP69 OR; +SUCR1SUS5 PO
[2021-09-09] MEDS: fentaNYL CITRATE 100 MCG/2 ML VL ONE ×5 (15:12→15:29)
[2021-09-09] MEDS: diphenhdrAMINE HCL 50 MG/1 ML VL ONE ×2 (15:12→15:16)
[2021-09-09] MEDS: MIDAZOLAM HCL 5 MG/ML-1ML VIAL ONE ×4 (15:12→15:26)
[2021-09-09 16:30] VITALS: BP 119/65
== END | disposition home or self-care (01) ==
LOC: GI 13:40
PROVIDERS: ATTEND Internal Medicine Gastroenterology
DX: Z12.11 Encounter for screening for malignant neoplasm of colon (principal); K57.30 Diverticulosis of large intestine without perforation or abscess without bleeding; K64.8 Other hemorrhoids; K63.89 Other specified diseases of intestine; I10 Essential (primary) hypertension; K21.9 Gastro-esophageal reflux disease without esophagitis; E03.9 Hypothyroidism, unspecified; I25.2 Old myocardial infarction; Z79.82 Long term (current) use of aspirin; Z96.89 Presence of other specified functional implants; Z20.822 Contact with and (suspected) exposure to COVID-19
CPT/HCPCS: 36415; 45378; 80053; 85025; J1200; J2250; J3010; J7030; U0003; 99152; 99153

== ENCOUNTER → 2021-11-03 | Outpatient (CLI) | payer OTHER ==
[2021-11-03 15:25] LABS: Cholesterol 215 mg/dL (< 200)
[2021-11-03 15:28] LABS: HDL Cholesterol 98 mg/dL (40-59); LDL Cholesterol 91 mg/dL (< 100); Triglycerides 83 mg/dL (< 150)
== END | disposition home or self-care (01) ==
LOC: LAB 14:38
PROVIDERS: ATTEND Internal Medicine
DX: F32.9 Major depressive disorder, single episode, unspecified (principal); R73.03 Prediabetes
CPT/HCPCS: 36415; 80061; 83036; 84443

== ENCOUNTER → 2022-01-19 | Outpatient (CLI) | payer OTHER ==
[2022-01-19 13:16] LABS: Cholesterol 214 mg/dL (< 200); HDL Cholesterol 103 mg/dL (40-59); LDL Cholesterol 91 mg/dL (< 100); Triglycerides 74 mg/dL (< 150)
[2022-01-19 13:33] LABS: Basophils # (auto) 0.1 10 ^3/uL (0-0.2); Basophils % (auto) 1.2 % (0.0-2.0); Eosinophils # (auto) 0.1 10 ^3/uL (0-0.8); Eosinophils % (auto) 1.4 % (0.0-7.0); Hematocrit 39.8 % (36.0-46.0); Hemoglobin 13.5 g/dL (12.2-16.2); Lymphocytes # (auto) 0.8 10 ^3/uL (0.4-5.4); Lymphocytes % (auto) 16.6 % (10.0-50.0); Mean Corpuscular Hemoglobin 30.6 pg (28.0-32.0); Mean Corpuscular Volume 90.3 fL (80.0-100.0); Monocytes # (auto) 0.5 10 ^3/uL (0-1.3); Monocytes % (auto) 10.7 % (0.0-12.0); Neutrophils # (auto) 3.4 10 ^3/uL (1.6-8.6); Neutrophils % (auto) 70.1 % (37.0-80.0); Nucleated Red Blood Cells % 0.2 %; Red Blood Cells 4.41 10^6/uL (4.0-5.20); White Blood Cell 4.8 10^3/uL (4.4-10.8)
== END | disposition home or self-care (01) ==
LOC: LAB 11:54
PROVIDERS: ATTEND Internal Medicine
DX: Z00.00 Encounter for general adult medical examination without abnormal findings (principal); I10 Essential (primary) hypertension; R73.03 Prediabetes
CPT/HCPCS: 36415; 80061; 84443; 85025

== ENCOUNTER → 2022-04-12 | Outpatient (CLI) | payer OTHER | END | disposition home or self-care (01) | LOC: LAB 12:19 | PROVIDERS: ATTEND Internal Medicine | DX: R73.03 Prediabetes (principal); E03.9 Hypothyroidism, unspecified | CPT/HCPCS: 36415; 82043; 84443 ==

== ENCOUNTER → 2022-07-13 | Outpatient (CLI) | payer OTHER | END | disposition home or self-care (01) | LOC: LAB 12:22 | PROVIDERS: ATTEND Internal Medicine | DX: E03.9 Hypothyroidism, unspecified (principal) | CPT/HCPCS: 36415; 84443 ==

== ENCOUNTER → 2022-08-11 | Outpatient (CLI) | payer OTHER ==
[2022-08-11 10:29] LABS: Basophils # (auto) 0.1 10 ^3/uL (0-0.2); Basophils % (auto) 1.1 % (0.0-2.0); Eosinophils # (auto) 0.1 10 ^3/uL (0-0.8); Eosinophils % (auto) 1.3 % (0.0-7.0); Hematocrit 44.6 % (36.0-46.0); Hemoglobin 14.8 g/dL (12.2-16.2); Lymphocytes # (auto) 0.8 10 ^3/uL (0.4-5.4); Lymphocytes % (auto) 15.4 % (10.0-50.0); Mean Corpuscular Hemoglobin 31.1 pg (28.0-32.0); Mean Corpuscular Hgb Conc. 33.3 g/dL (32.0-36.0); Mean Corpuscular Volume 93.5 fL (80.0-100.0); Monocytes # (auto) 0.5 10 ^3/uL (0-1.3); Monocytes % (auto) 10.4 % (0.0-12.0); Neutrophils # (auto) 3.5 10 ^3/uL (1.6-8.6); Neutrophils % (auto) 71.8 % (37.0-80.0); Nucleated Red Blood Cells % 0.1 %; Red Blood Cells 4.77 10^6/uL (4.0-5.20); Red Cell Distribution Width 15.2 % (11.8-14.3); White Blood Cell 4.9 10^3/uL (4.4-10.8)
[2022-08-11 11:37] LABS: Albumin 3.9 g/dL (3.4-5.0); BUN/Creatinine Ratio 21.3; Calcium 9.1 mg/dL (8.5-10.1); Potassium 4.5 mmol/L (3.5-5.1)
[2022-08-11 11:40] LABS: Bilirubin, Total 0.5 mg/dL (0.2-1.0)
== END | disposition home or self-care (01) ==
LOC: LAB 10:11
PROVIDERS: ATTEND Internal Medicine
DX: E78.00 Pure hypercholesterolemia, unspecified (principal); E03.9 Hypothyroidism, unspecified; F41.9 Anxiety disorder, unspecified; F32.9 Major depressive disorder, single episode, unspecified
CPT/HCPCS: 36415; 80053; 80164; 84443; 85025

== ENCOUNTER → 2023-01-10 | Outpatient (CLI) | payer OTHER ==
[2023-01-10 15:39] LABS: Albumin 3.7 g/dL (3.4-5.0); Potassium 3.8 mmol/L (3.5-5.1)
[2023-01-10 15:41] LABS: Total Protein 8.2 g/dL (6.4-8.2)
[2023-01-10 16:08] LABS: BUN/Creatinine Ratio 21.6; Bilirubin, Total 0.5 mg/dL (0.2-1.0); Calcium 8.8 mg/dL (8.5-10.1)
== END | disposition home or self-care (01) ==
LOC: LAB 14:44
PROVIDERS: ATTEND Internal Medicine
DX: Z00.00 Encounter for general adult medical examination without abnormal findings (principal); Z12.11 Encounter for screening for malignant neoplasm of colon; E03.9 Hypothyroidism, unspecified; R73.03 Prediabetes
CPT/HCPCS: 36415; 80053; 80061; 82043; 83036; 84443

== ENCOUNTER → 2023-02-24 | Outpatient (CLI) | payer OTHER | END | disposition home or self-care (01) | LOC: LAB 14:36 | PROVIDERS: ATTEND Internal Medicine | DX: E03.9 Hypothyroidism, unspecified (principal) | CPT/HCPCS: 36415; 84443 ==

== ENCOUNTER → 2023-03-31 | Outpatient (CLI) | payer OTHER ==
[~2023-03-31] MED LIST changes: +BENA-19 PO; -BENA10TA15 PO; +IBUP-1453 PO; -IBUP400T22 PO; +LORA-1121 PO; -LORA0.5T20 PO
== END | disposition home or self-care (01) ==
LOC: Rad HDHVI 15:50
PROVIDERS: ATTEND Internal Medicine Cardiovascular Disease
DX: I08.1 Rheumatic disorders of both mitral and tricuspid valves (principal); I11.9 Hypertensive heart disease without heart failure; Z95.0 Presence of cardiac pacemaker
CPT/HCPCS: 93306

== ENCOUNTER → 2023-04-18 | Outpatient (CLI) | payer OTHER ==
[2023-04-18 12:21] LABS: Basophils # (auto) 0 10 ^3/uL (0-0.2); Basophils % (auto) 1.1 % (0.0-2.0); Eosinophils # (auto) 0 10 ^3/uL (0-0.8); Eosinophils % (auto) 1.3 % (0.0-7.0); Hematocrit 44.8 % (36.0-46.0); Hemoglobin 15.3 g/dL (12.2-16.2); Lymphocytes # (auto) 0.9 10 ^3/uL (0.4-5.4); Lymphocytes % (auto) 25.4 % (10.0-50.0); Mean Corpuscular Hgb Conc. 34.2 g/dL (32.0-36.0); Mean Corpuscular Volume 93.7 fL (80.0-100.0); Monocytes # (auto) 0.4 10 ^3/uL (0-1.3); Monocytes % (auto) 11.4 % (0.0-12.0); Neutrophils # (auto) 2.1 10 ^3/uL (1.6-8.6); Neutrophils % (auto) 60.8 % (37.0-80.0); Nucleated Red Blood Cells % 0.1 %; Red Blood Cells 4.78 10^6/uL (4.0-5.20); Red Cell Distribution Width 13.9 % (11.8-14.3); White Blood Cell 3.5 10^3/uL (4.4-10.8)
[2023-04-18 12:28] LABS: Urine Bacteria NONE SEEN /hpf (None Seen); Urine Blood Negative /uL (Negative); Urine Mucus MODERATE (None Seen); Urine WBC 17 /hpf (0 - 5)
[2023-04-18 12:42] LABS: Albumin 3.4 g/dL (3.4-5.0); Potassium 3.6 mmol/L (3.5-5.1)
[2023-04-18 12:50] LABS: BUN/Creatinine Ratio 21.8 (10.0-20.0); Bilirubin, Total 0.4 mg/dL (0.2-1.0); Total Protein 7.3 g/dL (6.4-8.2)
== END | disposition home or self-care (01) ==
LOC: LAB 11:44
PROVIDERS: ATTEND Internal Medicine
DX: Z12.11 Encounter for screening for malignant neoplasm of colon (principal); I42.0 Dilated cardiomyopathy; E03.9 Hypothyroidism, unspecified; E78.00 Pure hypercholesterolemia, unspecified
CPT/HCPCS: 36415; 80053; 81001; 83036; 84443; 85025

== ENCOUNTER → 2024-03-27 | Outpatient (CLI) | payer OTHER, MEDICAID ==
[~2024-03-27] MED LIST changes: -ASPI-543 PO; -BENA-19 PO; +BENA10TA90 PO; -CARV6.2551 PO; +CYAN500T3 PO; +DIGO1TAB48 PO; +ERGO1CAP23 PO; +FEXO-42 PO; +FURO1TAB33 PO; -LEVO100T8 PO; +LEVO50TA7 PO; -LORA-1121 PO; +LORA-1123 PO; -MAGN400T40 OR; +OLAN1TAB7 PO; -OMEP20TA PO; +PANT40T PO; -PANT40TA2 PO; +POTA-36 PO; -PRENCAP69 OR; +SPIR25TA PO; -SUCR1SUS5 PO; +TEMA15CA2 PO; +TRAZ-227 PO; -TRIATAB3 PO
== END | disposition home or self-care (01) ==
LOC: LAB 07:16
PROVIDERS: ATTEND Internal Medicine
DX: E55.9 Vitamin D deficiency, unspecified (principal); E03.9 Hypothyroidism, unspecified
CPT/HCPCS: 36415; 82306; 84443

== ENCOUNTER 2024-05-23 04:35 | Inpatient (IN) | payer OTHER, MEDICAID ==
[~2024-05-23] VITALS: Ht 165.1 cm; Wt 59.5 kg
[~2024-05-23 04:35] MED LIST changes: +LEVO100C3 PO; +TEMA30CA PO; +TRAZ-228 PO
[2024-05-23 09:13] LABS: Basophils # (auto) 0.1 10 ^3/uL (0-0.2); Basophils % (auto) 1.1 % (0.0-2.0); Eosinophils # (auto) 0 10 ^3/uL (0-0.8); Eosinophils % (auto) 0.3 % (0.0-7.0); Hematocrit 39.1 % (36.0-46.0); Hemoglobin 13.1 g/dL (12.2-16.2); Lymphocytes # (auto) 0.6 10 ^3/uL (0.4-5.4); Lymphocytes % (auto) 13.8 % (10.0-50.0); Mean Corpuscular Hemoglobin 30.7 pg (28.0-32.0); Mean Corpuscular Hgb Conc. 33.4 g/dL (32.0-36.0); Mean Corpuscular Volume 91.7 fL (80.0-100.0); Monocytes # (auto) 0.4 10 ^3/uL (0-1.3); Monocytes % (auto) 7.6 % (0.0-12.0); Neutrophils # (auto) 3.6 10 ^3/uL (1.6-8.6); Neutrophils % (auto) 77.2 % (37.0-80.0); Red Blood Cells 4.27 10^6/uL (4.0-5.20); Red Cell Distribution Width 16.3 % (11.8-14.3); White Blood Cell 4.7 10^3/uL (4.4-10.8)
[2024-05-23 09:23] LABS: Alanine Aminotransferase 22 U/L (7-40); Albumin 4.1 g/dL (3.2-4.8); Alkaline Phosphatase 70 U/L (46-116); Anion Gap 10 (5-15); Aspartate Aminotransferase 18 U/L (13-40); Blood Urea Nitrogen 27 mg/dL (9-23); Calcium 9.4 mg/dL (8.7-10.4); Carbon Dioxide 22 mmol/L (20-30); Chloride 109 mmol/L (98-107); Glucose 80 mg/dL (74-106); Magnesium 2.2 mg/dL (1.6-2.6); Potassium 4.1 mmol/L (3.5-5.1); Sodium 141 mmol/L (136-145)
[2024-05-23 09:24] LABS: Bilirubin, Total 1.3 mg/dL (0.2-1.0); Total Protein 6.6 g/dL (5.7-8.2)
[2024-05-23 09:33] LABS: INR 1.24 (0.9-1.15); Partial Thromboplastin Time 26.2 SEC (24.5-34.5); Prothrombin Time 12.9 sec (9.3-11.8)
[2024-05-23] MEDS ORDERED: NITROGLYCERIN 0.4 MG SL TAB SL PRN (12:00)
[2024-05-23] MEDS ORDERED: TEMAZEPAM 15 MG CAP PO PRN (12:00)
[2024-05-23] MEDS ORDERED: LORazepam 0.5 MG TAB PO PRN (12:00)
[2024-05-23] MEDS ORDERED: MORPHINE SULFATE INJ 2 MG/ml SYRG IV PRN (12:00)
[2024-05-23] MEDS ORDERED: ACETAMINOPHEN 325 MG TAB PO PRN (12:00)
[2024-05-23 12:08] LABS: Triglycerides 106 mg/dL (< 150)
[2024-05-23 12:09] LABS: LDL Cholesterol 126 mg/dL (< 100)
[2024-05-23 12:10] LABS: Cholesterol 189 mg/dL (< 200); HDL Cholesterol 59 mg/dL (40-59)
[2024-05-23 12:27] VITALS: PULSE 75; RESP 15; O2SAT 95
[2024-05-23] MEDS: SODIUM CHLORIDE 0.9% 1,000 ML IV SCH (12:30)
[2024-05-23] MEDS: ASPirin 325 MG TAB PO ONE (12:39)
[2024-05-23] MEDS: ERGOCALCIFEROL 50,000 UNIT(1.25MG) CAP PO SCH (12:40)
[2024-05-23 17:00] VITALS: BP 99/64; PULSE 74; RESP 17; TEMP 98.1; O2SAT 99
[2024-05-23 17:03] VITALS: BP 99/64; PULSE 74; RESP 17; TEMP 98.1; O2SAT 99
[2024-05-23 18:57] LABS: Basophils % (manual) 0 (0.0-2.0); Blast Cells 0; Eosinophils % (manual) 0 (0-7); Metamyelocytes % 0; Myelocytes % 0; Promyelocytes % 0; Reactive Lymphocytes 0
[2024-05-23 19:59] LABS: Band Neutrophils % (manual) 1; Lymphocytes % (manual) 15 (10.0-50.0); Monocytes % (manual) 9 (0-12); Platelet Estimate Adequate
[2024-05-23 20:00] VITALS: PULSE 69
[2024-05-23 20:00] LABS: Anisocytosis Slight
[2024-05-23] MEDS: FUROSEMIDE INJECTION 100 MG in D5W 5% 100 ML IV SCH (20:20)
[2024-05-23] MEDS: DOBUTamine 1000MCG/ML 250 ML IV SCH (20:21)
[2024-05-23 21:00] VITALS: BP 92/61; PULSE 67; RESP 18; TEMP 98.2; O2SAT 99
[2024-05-23] MEDS: PANTOPRAZOLE 40 MG TAB PO SCH (21:47)
[2024-05-23 23:05] LABS: Body Fluid Polymorphonuclear 15 % (0-25); Body Fluid Red Blood Cells 638 CUMM (0-2000); Body Fluid White Blood Cells 245 CUMM (0-200)
[2024-05-24] VITALS (8 sets, daily range): BP systolic 61–104; BP diastolic 43–73; PULSE 59–76; RESP 16–20; TEMP 97.4–98.6; O2SAT 93–99
[2024-05-24 06:45] LABS: Alanine Aminotransferase 19 U/L (7-40); Albumin 3.7 g/dL (3.2-4.8); Alkaline Phosphatase 62 U/L (46-116); Anion Gap 14 (5-15); Aspartate Aminotransferase 21 U/L (13-40); BUN/Creatinine Ratio 15.9 (10.0-20.0); Bilirubin, Total 1.5 mg/dL (0.2-1.0); Blood Urea Nitrogen 13 mg/dL (9-23); Calcium 8.6 mg/dL (8.7-10.4); Carbon Dioxide 24 mmol/L (20-30); Chloride 103 mmol/L (98-107); Glucose 84 mg/dL (74-106); Potassium 3.2 mmol/L (3.5-5.1); Sodium 141 mmol/L (136-145); Total Protein 6.6 g/dL (5.7-8.2)
[2024-05-24 06:46] LABS: Basophils # (auto) 0 10 ^3/uL (0-0.2); Basophils % (auto) 0.6 % (0.0-2.0); Eosinophils # (auto) 0.1 10 ^3/uL (0-0.8); Eosinophils % (auto) 1.1 % (0.0-7.0); Hematocrit 40.3 % (36.0-46.0); Hemoglobin 13.2 g/dL (12.2-16.2); Lymphocytes # (auto) 0.8 10 ^3/uL (0.4-5.4); Lymphocytes % (auto) 12.6 % (10.0-50.0); Mean Corpuscular Hemoglobin 29.9 pg (28.0-32.0); Mean Corpuscular Hgb Conc. 32.9 g/dL (32.0-36.0); Mean Corpuscular Volume 90.9 fL (80.0-100.0); Monocytes # (auto) 0.6 10 ^3/uL (0-1.3); Monocytes % (auto) 9.8 % (0.0-12.0); Neutrophils # (auto) 4.5 10 ^3/uL (1.6-8.6); Neutrophils % (auto) 75.9 % (37.0-80.0); Nucleated Red Blood Cells % 0.2 %; Red Blood Cells 4.43 10^6/uL (4.0-5.20); Red Cell Distribution Width 16.2 % (11.8-14.3)
[2024-05-24 09:09] LABS: T3 Total 0.43 ng/mL (0.60-1.81)
[2024-05-24 09:17] LABS: Free T4 (Free Thyroxine) 0.85 ng/dL (0.89-1.76)
[2024-05-24] MEDS: BENAZEPRIL HCL 10 MG TAB PO SCH (10:00)
[2024-05-24] MEDS ORDERED: FUROSEMIDE 20 MG TAB PO SCH (10:00)
[2024-05-24] MEDS: POTASSIUM EFFERVESENT TAB 25 MEQ PO ONE (10:46)
[2024-05-24] MEDS: CYANOCOBALAMIN 500 MCG TAB PO SCH (10:46)
[2024-05-24] MEDS: LEVOTHYROXINE SODIUM 50 MCG TAB PO SCH (10:46)
[2024-05-24] MEDS: ENOXAPARIN SOD 40 MG/0.4 ML SYRINGE SC SCH (10:47)
[2024-05-24] MEDS: DIGOXIN 0.125 MG TAB PO SCH (10:47)
[2024-05-24] MEDS: OLANZapine 5 MG TAB PO SCH (10:47)
[2024-05-24] MEDS: SPIRONOLACTONE 25 MG TAB PO SCH (10:48)
[2024-05-24] MEDS: traZODone HCL 50 MG TAB PO SCH (10:48)
[2024-05-24] MEDS: LORATADINE 10 MG TAB PO SCH (10:48)
[2024-05-24] MEDS: IBUPROFEN 400 MG TAB PO SCH (10:49)
[2024-05-24] MEDS: ASPirin 81 mg TAB PO SCH (10:49)
[2024-05-24] MEDS: POTASSIUM EFFERVESENT TAB 25 MEQ PO SCH (10:50)
[2024-05-24] MEDS ORDERED: CYAN500T3 PO (14:53)
[2024-05-24] MEDS ORDERED: AMIO200T33 PO (14:53)
[2024-05-25] VITALS (10 sets, daily range): BP systolic 64–96; BP diastolic 22–67; PULSE 60–97; RESP 15–20; TEMP 97.5–98.2; O2SAT 94–100
[2024-05-25] MEDS: SODIUM CHLORIDE 0.9% 250 ML IV ONE (01:25)
[2024-05-25 06:20] LABS: Anion Gap 11 (5-15); Carbon Dioxide 28 mmol/L (20-30); Chloride 100 mmol/L (98-107); Sodium 139 mmol/L (136-145)
[2024-05-25 06:26] LABS: BUN/Creatinine Ratio 16.7 (10.0-20.0); Blood Urea Nitrogen 18 mg/dL (9-23); Glucose 88 mg/dL (74-106); Magnesium 1.8 mg/dL (1.6-2.6)
[2024-05-25 06:38] LABS: Potassium 2.5 mmol/L (3.5-5.1)
[2024-05-25] MEDS: POTASSIUM CHL 20MEQ/100ML 100 ML IV SCH (06:57)
[2024-05-25] MEDS ORDERED: POTASSIUM CHLORIDE 20 MEQ, LIDOCAINE 1% (LOCAL ANESTH.) 2 ML in SODIUM CHL 0.9% 100 ML IV ONE ×2 (08:00→08:30)
[2024-05-25] MEDS: POTASSIUM CHLORIDE 40 MEQ, LIDOCAINE 1% (LOCAL ANESTH.) 4 ML in SODIUM CHL 0.9% 250 ML IV ONE (09:19)
[2024-05-25] MEDS: MAGNESIUM SULFATE 1GM/100ML 100 ML IV SCH (13:08)
[2024-05-25] MEDS: traZODone HCL 50 MG TAB PO SCH (21:52)
[2024-05-26 05:00] VITALS: BP 94/58; PULSE 74; RESP 17; TEMP 98.1; O2SAT 93
[2024-05-26 06:54] LABS: Calcium 9.1 mg/dL (8.7-10.4); Chloride 102 mmol/L (98-107); Potassium 3.6 mmol/L (3.5-5.1); Sodium 138 mmol/L (136-145)
[2024-05-26 06:55] LABS: Anion Gap 7 (5-15); Carbon Dioxide 29 mmol/L (20-30)
[2024-05-26 07:00] LABS: BUN/Creatinine Ratio 12.8 (10.0-20.0); Blood Urea Nitrogen 12 mg/dL (9-23); Glucose 97 mg/dL (74-106)
[2024-05-26 07:01] LABS: Magnesium 2.3 mg/dL (1.6-2.6)
[2024-05-26 08:00] VITALS: PULSE 69; RESP 18
[2024-05-26 08:23] VITALS: BP 95/58; PULSE 70; RESP 18; TEMP 98.2; O2SAT 99
[2024-05-26 13:00] VITALS: BP 94/46; PULSE 54; RESP 17; TEMP 98.3; O2SAT 96
[2024-05-26 14:02] VITALS: BP 94/46; PULSE 54; RESP 16; TEMP 98.3; O2SAT 96
[2024-05-29 06:42] LABS: Protein, Body Fluid 1.7 g/dL (.)
== END 2024-05-26 14:41 | disposition home or self-care (01) | DRG 291 ==
LOC: ER 04:35 → EDBD 04:35 → TELE 11:50 → TELE-WESTW 15:30
PROVIDERS: ADMIT Nurse Practitioner Family; ATTEND Internal Medicine
PROC: 0W993ZZ Drainage of Right Pleural Cavity, Percutaneous Approach (ICD-10-PCS; principal; 2024-05-23)
DX: I11.0 Hypertensive heart disease with heart failure (principal); I50.23 Acute on chronic systolic (congestive) heart failure; J96.00 Acute respiratory failure, unspecified whether with hypoxia or hypercapnia; J91.8 Pleural effusion in other conditions classified elsewhere; I42.0 Dilated cardiomyopathy; F41.9 Anxiety disorder, unspecified; E03.9 Hypothyroidism, unspecified; E87.6 Hypokalemia; Z95.810 Presence of automatic (implantable) cardiac defibrillator; Z86.73 Personal history of transient ischemic attack (TIA), and cerebral infarction without residual deficits; I25.2 Old myocardial infarction; Z79.899 Other long term (current) drug therapy
CPT/HCPCS: 32555; 36415; 71045; 76604; 76942; 80048; 80053; 80061; 80162; 82306; 82607; 83036; 83615; 83735; 83880; 83986; 84132; 84439; 84443; 84480; 84484; 85025; 85610; 85730; 87205; 89051; 93005; 93306; 97163; G0378; J2001; J3480; J7060

== ENCOUNTER 2024-07-05 21:48 | Inpatient (IN) | payer MEDICARE, MEDICAID, OTHER ==
[~2024-07-05] VITALS: Ht 170.2 cm; Wt 64.6 kg
[~2024-07-05 21:48] MED LIST changes: +AMIO200T33 PO; +DIGO0.12 PO; +ERGO500086 PO; +FURO20TA3 PO; -LEVO50TA7 PO; +POTA-228 PO; +SPIR25TA8 PO; -TEMA15CA2 PO; -TRAZ-227 PO; +[UNRECOGNIZED DRUG - CODE] PO
[2024-07-05 22:28] LABS: Basophils # (auto) 0 10 ^3/uL (0-0.2); Eosinophils # (auto) 0 10 ^3/uL (0-0.8); Eosinophils % (auto) 0.7 % (0.0-7.0); Hematocrit 35.1 % (36.0-46.0); Hemoglobin 11.6 g/dL (12.2-16.2); Lymphocytes # (auto) 0.9 10 ^3/uL (0.4-5.4); Lymphocytes % (auto) 21.4 % (10.0-50.0); Mean Corpuscular Hemoglobin 29.1 pg (28.0-32.0); Mean Corpuscular Volume 88.1 fL (80.0-100.0); Monocytes # (auto) 0.4 10 ^3/uL (0-1.3); Monocytes % (auto) 9.9 % (0.0-12.0); Neutrophils # (auto) 2.8 10 ^3/uL (1.6-8.6); Nucleated Red Blood Cells % 0.1 %; Platelet Count (auto) 186 10^3/uL (140-450); Red Blood Cells 3.98 10^6/uL (4.0-5.20); Red Cell Distribution Width 18.5 % (11.8-14.3); White Blood Cell 4.2 10^3/uL (4.4-10.8)
[2024-07-05 22:45] LABS: Alanine Aminotransferase 20 U/L (7-40); Albumin 3.8 g/dL (3.2-4.8); Alkaline Phosphatase 54 U/L (46-116); Anion Gap 11 (5-15); Aspartate Aminotransferase 15 U/L (13-40); BUN/Creatinine Ratio 20.2 (10.0-20.0); Bilirubin, Total 1.1 mg/dL (0.2-1.0); Blood Urea Nitrogen 26 mg/dL (9-23); Calcium 9.2 mg/dL (8.7-10.4); Carbon Dioxide 19 mmol/L (20-30); Chloride 108 mmol/L (98-107); Glucose 114 mg/dL (74-106); INR 1.38 (0.9-1.15); Magnesium 2.1 mg/dL (1.6-2.6); Partial Thromboplastin Time 25.3 SEC (24.5-34.5); Potassium 3.1 mmol/L (3.5-5.1); Prothrombin Time 14.3 sec (9.3-11.8); Sodium 138 mmol/L (136-145); Total Protein 6.5 g/dL (5.7-8.2)
[2024-07-06] VITALS (8 sets, daily range): BP systolic 130; BP diastolic 106; PULSE 69–84; RESP 15–98; TEMP 97.2; O2SAT 40–100
[2024-07-06] MEDS ORDERED: DOCUSATE SOD 100 MG CAP PO PRN (01:45)
[2024-07-06] MEDS ORDERED: HYDROcodone-ACET 5/325MG TAB PO PRN (01:45)
[2024-07-06] MEDS ORDERED: NITROGLYCERIN 0.4 MG SL TAB SL PRN (04:00)
[2024-07-06] MEDS: NITROGLYCERIN 2% OINT 1GM PKG TD ONE (04:50)
[2024-07-06] MEDS: POTASSIUM CHL 20 Meq TABLET PO ONE (05:05)
[2024-07-06] MEDS: ASPirin 325 MG TAB PO ONE (05:06)
[2024-07-06] MEDS: cefTRIAXone 1GM/50ML D5W 50 ML IV ONE (05:43)
[2024-07-06] MEDS: FUROSEMIDE 40 MG/4 ML VIAL IV ONE (05:54)
[2024-07-06] MEDS: AZITHROMYCIN 500MG/ 250ML 250 ML IV ONE (06:03)
[2024-07-06] MEDS: SODIUM CHLOR 0.9% PF (SALINE LOCK) 10ML VIAL/SYR IV SCH (06:03)
[2024-07-06] MEDS: LEVOTHYROXINE SODIUM 100 MCG TAB PO SCH (06:26)
[2024-07-06] MEDS: ALBUTEROL SULF 2.5 MG/0.5ML(0.5%) NEB SOLN NEB PRN (06:53)
[2024-07-06] MEDS: IPRATROPIUM BROM 0.5 MG/2.5ML INH SOL NEB PRN (06:53)
[2024-07-06] MEDS: MORPHINE SULFATE INJ 2 MG/ml SYRG IV PRN (06:58)
[2024-07-06] MEDS: ONDANSETRON HCL 4 MG/2 ML VIAL IV PRN (06:58)
[2024-07-06 07:11] LABS: Basophils # (auto) 0 10 ^3/uL (0-0.2); Basophils % (auto) 0.8 % (0.0-2.0); Eosinophils # (auto) 0 10 ^3/uL (0-0.8); Eosinophils % (auto) 1.1 % (0.0-7.0); Hematocrit 38.4 % (36.0-46.0); Hemoglobin 12.6 g/dL (12.2-16.2); Lymphocytes # (auto) 0.9 10 ^3/uL (0.4-5.4); Lymphocytes % (auto) 21.4 % (10.0-50.0); Mean Corpuscular Hemoglobin 29.3 pg (28.0-32.0); Mean Corpuscular Hgb Conc. 32.8 g/dL (32.0-36.0); Mean Corpuscular Volume 89.4 fL (80.0-100.0); Monocytes # (auto) 0.4 10 ^3/uL (0-1.3); Monocytes % (auto) 8.7 % (0.0-12.0); Nucleated Red Blood Cells % 0.2 %; Platelet Count (auto) 198 10^3/uL (140-450); Red Blood Cells 4.29 10^6/uL (4.0-5.20); White Blood Cell 4.4 10^3/uL (4.4-10.8)
[2024-07-06 07:27] LABS: Alanine Aminotransferase 18 U/L (7-40); Albumin 4.3 g/dL (3.2-4.8); Alkaline Phosphatase 61 U/L (46-116); Anion Gap 11 (5-15); Aspartate Aminotransferase 18 U/L (13-40); BUN/Creatinine Ratio 17.7 (10.0-20.0); Bilirubin, Total 1.1 mg/dL (0.2-1.0); Blood Urea Nitrogen 23 mg/dL (9-23); Calcium 9.3 mg/dL (8.7-10.4); Carbon Dioxide 17 mmol/L (20-30); Chloride 107 mmol/L (98-107); Glucose 136 mg/dL (74-106); Potassium 3.6 mmol/L (3.5-5.1); Sodium 135 mmol/L (136-145); Total Protein 7.3 g/dL (5.7-8.2)
[2024-07-06] MEDS: DOXYCYCLINE 100MG/250ML 250 ML IV SCH (07:45)
[2024-07-06] MEDS: cefTRIAXone 1GM/50ML D5W 50 ML IV SCH (09:07)
[2024-07-06] MEDS ORDERED: CARVEDILOL 12.5 MG TAB PO SCH (10:00)
[2024-07-06] MEDS ORDERED: FUROSEMIDE 40 MG/4 ML VIAL IV SCH (10:00)
[2024-07-06] MEDS ORDERED: AZITHROMYCIN 500MG/ 250ML 250 ML IV SCH (10:00)
[2024-07-06] MEDS: FUROSEMIDE 40 MG/4 ML VIAL IV SCH (10:18)
[2024-07-06] MEDS: SPIRONOLACTONE 25 MG TAB PO SCH (10:19)
[2024-07-06] MEDS: ASPirin 81 mg TAB PO SCH (10:19)
[2024-07-06] MEDS: LEVOTHYROXINE SODIUM 25 MCG TAB PO ONE (10:21)
[2024-07-06] MEDS: FUROSEMIDE INJECTION 100 MG in SODIUM CHL 0.9% 100 ML IV SCH (12:15)
[2024-07-06] MEDS: DOBUTamine 1000MCG/ML 250 ML IV SCH (13:45)
[2024-07-06] MEDS ORDERED: ENOXAPARIN SOD 30 MG/0.3 ML SYRINGE SC ONE (14:00)
[2024-07-06] MEDS: ENOXAPARIN SOD 40 MG/0.4 ML SYRINGE SC SCH (14:00)
[2024-07-06] MEDS: POTASSIUM EFFERVESENT TAB 25 MEQ PO ONE (14:45)
[2024-07-06] MEDS: FUROSEMIDE INJECTION 100 MG in D5W 5% 100 ML IV SCH (14:45)
[2024-07-06] MEDS: SODIUM CHLORIDE 0.9% 250 ML IV ONE (21:58)
[2024-07-06] MEDS: NOREPINEPHRINE 8 MG/250ML KIT 250 ML IV SCH (22:37)
[2024-07-07] VITALS (57 sets, daily range): BP systolic 80–127; BP diastolic 57–87; PULSE 75–91; RESP 14–36; TEMP 97–98.4; O2SAT 91–100
[2024-07-07 00:26] LABS: Urine Bacteria None Seen /hpf (None Seen)
[2024-07-07 00:38] LABS: Urine Blood 2+ /uL (Negative); Urine Clarity Clear (Clear); Urine Color Light-Yellow (Yellow); Urine Hyaline Cast MOD /lpf (0 - 2); Urine Mucus FEW (None Seen); Urine Protein, UAD Negative (Negative); Urine Specific Gravity 1.009 (1.001-1.035); Urine Urobilinogen Normal (Negative); Urine WBC 14 /hpf (0 - 5)
[2024-07-07 00:50] LABS: COVID19 ANTIGEN SOFIA FIA NEGATIVE (NEGATIVE)
[2024-07-07 00:53] LABS: Rapid Influenza A Negative (Negative); Rapid Influenza B Negative (Negative)
[2024-07-07 01:43] LABS: Creatinine, Urine 41.82 mg/dL (30.0-125.0)
[2024-07-07 04:44] LABS: Basophils # (auto) 0 10 ^3/uL (0-0.2); Basophils % (auto) 0.6 % (0.0-2.0); Eosinophils # (auto) 0 10 ^3/uL (0-0.8); Eosinophils % (auto) 0.2 % (0.0-7.0); Hematocrit 32.1 % (36.0-46.0); Lymphocytes # (auto) 0.9 10 ^3/uL (0.4-5.4); Lymphocytes % (auto) 18.8 % (10.0-50.0); Mean Corpuscular Hemoglobin 30.2 pg (28.0-32.0); Mean Corpuscular Hgb Conc. 34.2 g/dL (32.0-36.0); Mean Corpuscular Volume 88.3 fL (80.0-100.0); Monocytes # (auto) 0.5 10 ^3/uL (0-1.3); Monocytes % (auto) 10.9 % (0.0-12.0); Neutrophils # (auto) 3.3 10 ^3/uL (1.6-8.6); Neutrophils % (auto) 69.5 % (37.0-80.0); Nucleated Red Blood Cells % 0.1 %; Platelet Count (auto) 165 10^3/uL (140-450); Red Blood Cells 3.63 10^6/uL (4.0-5.20); Red Cell Distribution Width 18.4 % (11.8-14.3); White Blood Cell 4.7 10^3/uL (4.4-10.8)
[2024-07-07 05:05] LABS: Alanine Aminotransferase 30 U/L (7-40); Albumin 3.8 g/dL (3.2-4.8); Alkaline Phosphatase 53 U/L (46-116); Anion Gap 8 (5-15); Aspartate Aminotransferase 39 U/L (13-40); BUN/Creatinine Ratio 17.1 (10.0-20.0); Blood Urea Nitrogen 26 mg/dL (9-23); Calcium 8.6 mg/dL (8.7-10.4); Carbon Dioxide 22 mmol/L (20-30); Chloride 105 mmol/L (98-107); Glucose 115 mg/dL (74-106); Potassium 3.9 mmol/L (3.5-5.1); Sodium 135 mmol/L (136-145)
[2024-07-07 05:06] LABS: Bilirubin, Total 0.7 mg/dL (0.2-1.0); Total Protein 6.4 g/dL (5.7-8.2)
[2024-07-07] MEDS ORDERED: LEVOTHYROXINE SODIUM 50 MCG TAB PO SCH (06:00)
[2024-07-07] MEDS: LEVOTHYROXINE SODIUM 100 MCG TAB PO SCH (06:14)
[2024-07-07] MEDS: ACETAMINOPHEN 325 MG TAB PO PRN (12:07)
[2024-07-07] MEDS: POTASSIUM EFFERVESENT TAB 25 MEQ GT SCH (12:08)
[2024-07-07] MEDS: LIDOCAINE 1% (LOCAL ANESTH.) PF 5ml SDV ID ONE (13:36)
[2024-07-07] MEDS: BUMETANIDE 2.5mg/10ml (0.25 mg/ml) INJ IV ONE (17:17)
[2024-07-07] MEDS: NITROGLYCERIN 2% OINT 1GM PKG TD ONE (18:28)
[2024-07-07] MEDS: BUMETANIDE INJECTION 25 MG in GIVE UN-DILUTED 0 ML IV SCH (20:33)
[2024-07-07] MEDS: SODIUM CHLOR 0.9% PF (SALINE LOCK) 10ML VIAL/SYR IV SCH (22:01)
[2024-07-08] VITALS (98 sets, daily range): BP systolic 86–118; BP diastolic 50–76; PULSE 61–84; RESP 12–32; TEMP 97.3–98.3; O2SAT 95–100
[2024-07-08 04:25] LABS: Alanine Aminotransferase 29 U/L (7-40); Albumin 3.8 g/dL (3.2-4.8); Alkaline Phosphatase 53 U/L (46-116); Anion Gap 7 (5-15); Aspartate Aminotransferase 31 U/L (13-40); BUN/Creatinine Ratio 16.9 (10.0-20.0); Blood Urea Nitrogen 22 mg/dL (9-23); Calcium 8.8 mg/dL (8.7-10.4); Carbon Dioxide 28 mmol/L (20-30); Chloride 101 mmol/L (98-107); Glucose 106 mg/dL (74-106); Magnesium 1.7 mg/dL (1.6-2.6); Potassium 3.3 mmol/L (3.5-5.1); Sodium 136 mmol/L (136-145)
[2024-07-08 04:26] LABS: Bilirubin, Total 0.7 mg/dL (0.2-1.0); Phosphorus 3.8 mg/dL (2.4-5.1); Total Protein 6.4 g/dL (5.7-8.2)
[2024-07-08 04:41] LABS: Basophils # (auto) 0 10 ^3/uL (0-0.2); Basophils % (auto) 0.9 % (0.0-2.0); Eosinophils # (auto) 0.1 10 ^3/uL (0-0.8); Eosinophils % (auto) 1.3 % (0.0-7.0); Hematocrit 32.5 % (36.0-46.0); Hemoglobin 10.9 g/dL (12.2-16.2); Lymphocytes % (auto) 22.6 % (10.0-50.0); Mean Corpuscular Hemoglobin 29.5 pg (28.0-32.0); Mean Corpuscular Hgb Conc. 33.5 g/dL (32.0-36.0); Mean Corpuscular Volume 88.2 fL (80.0-100.0); Monocytes # (auto) 0.4 10 ^3/uL (0-1.3); Monocytes % (auto) 10.1 % (0.0-12.0); Neutrophils # (auto) 2.8 10 ^3/uL (1.6-8.6); Neutrophils % (auto) 65.1 % (37.0-80.0); Nucleated Red Blood Cells % 0.2 %; Platelet Count (auto) 157 10^3/uL (140-450); Red Blood Cells 3.68 10^6/uL (4.0-5.20); Red Cell Distribution Width 18.8 % (11.8-14.3); White Blood Cell 4.2 10^3/uL (4.4-10.8)
[2024-07-08 15:28] LABS: Chloride 98 mmol/L (98-107); Potassium 2.9 mmol/L (3.5-5.1); Sodium 138 mmol/L (136-145)
[2024-07-08 15:29] LABS: Anion Gap 10 (5-15); Calcium 8.6 mg/dL (8.7-10.4); Carbon Dioxide 30 mmol/L (20-30)
[2024-07-08 15:34] LABS: BUN/Creatinine Ratio 14.3 (10.0-20.0); Blood Urea Nitrogen 16 mg/dL (9-23); Glucose 98 mg/dL (74-106)
[2024-07-08] MEDS: BUMETANIDE INJECTION 25 MG in GIVE UN-DILUTED 0 ML IV SCH (15:34)
[2024-07-08] MEDS: POTASSIUM EFFERVESENT TAB 25 MEQ GT ONE ×2 (16:47→19:49)
[2024-07-09] VITALS (101 sets, daily range): BP systolic 82–181; BP diastolic 39–86; PULSE 59–89; RESP 9–28; TEMP 97.9–98.1; O2SAT 82–100
[2024-07-09 04:20] LABS: Chloride 93 mmol/L (98-107); Potassium 2.8 mmol/L (3.5-5.1); Sodium 136 mmol/L (136-145)
[2024-07-09 04:21] LABS: Anion Gap 7 (5-15); Calcium 8.4 mg/dL (8.7-10.4); Carbon Dioxide 36 mmol/L (20-30)
[2024-07-09 04:26] LABS: BUN/Creatinine Ratio 13.3 (10.0-20.0); Blood Urea Nitrogen 13 mg/dL (9-23); Glucose 88 mg/dL (74-106)
[2024-07-09 07:39] LABS: Basophils # (auto) 0 10 ^3/uL (0-0.2); Basophils % (auto) 0.2 % (0.0-2.0); Eosinophils # (auto) 0.1 10 ^3/uL (0-0.8); Eosinophils % (auto) 2.1 % (0.0-7.0); Hemoglobin 10.6 g/dL (12.2-16.2); Lymphocytes # (auto) 0.6 10 ^3/uL (0.4-5.4); Lymphocytes % (auto) 14.2 % (10.0-50.0); Mean Corpuscular Hemoglobin 29.5 pg (28.0-32.0); Mean Corpuscular Hgb Conc. 34.2 g/dL (32.0-36.0); Mean Corpuscular Volume 86.3 fL (80.0-100.0); Monocytes # (auto) 0.5 10 ^3/uL (0-1.3); Monocytes % (auto) 11.3 % (0.0-12.0); Neutrophils % (auto) 72.2 % (37.0-80.0); Nucleated Red Blood Cells % 0.3 %; Platelet Count (auto) 138 10^3/uL (140-450); Red Blood Cells 3.59 10^6/uL (4.0-5.20); Red Cell Distribution Width 18.4 % (11.8-14.3); White Blood Cell 4.2 10^3/uL (4.4-10.8)
[2024-07-09] MEDS: MAGNESIUM SULFATE 1GM/100ML 100 ML IV ONE ×2 (07:57→17:15)
[2024-07-09] MEDS: POTASSIUM CHL 20MEQ/100ML 100 ML IV SCH ×2 (09:15→16:43)
[2024-07-09] MEDS ORDERED: POTASSIUM CHL 20MEQ/100ML 100 ML IV SCH (10:45)
[2024-07-09] MEDS: MAGNESIUM SULFATE 1GM/100ML 100 ML IV SCH (16:42)
[2024-07-09] MEDS: DOBUTamine 1000MCG/ML 250 ML IV SCH (17:15)
[2024-07-09 20:37] LABS: % Iron Saturation 7.3 % (15-50)
[2024-07-09] MEDS: POTASSIUM CHL 20MEQ/100ML 100 ML IV ONE (22:50)
[2024-07-10] VITALS (95 sets, daily range): BP systolic 78–113; BP diastolic 28–80; PULSE 70–94; RESP 12–29; TEMP 97.8–98.5; O2SAT 85–100
[2024-07-10 04:01] LABS: Anion Gap 7 (5-15); Carbon Dioxide 32 mmol/L (20-30); Chloride 91 mmol/L (98-107); Potassium 4.2 mmol/L (3.5-5.1)
[2024-07-10 04:03] LABS: Calcium 9.2 mg/dL (8.7-10.4)
[2024-07-10 04:07] LABS: Glucose 108 mg/dL (74-106)
[2024-07-10 04:08] LABS: BUN/Creatinine Ratio 11.1 (10.0-20.0); Blood Urea Nitrogen 12 mg/dL (9-23); Magnesium 2.1 mg/dL (1.6-2.6)
[2024-07-10 04:17] LABS: Sodium 130 mmol/L (136-145)
[2024-07-10] MEDS: DOBUTamine 1000MCG/ML 250 ML IV SCH (10:51)
[2024-07-10] MEDS: BUMETANIDE 2.5mg/10ml (0.25 mg/ml) INJ IV SCH (10:53)
[2024-07-10] MEDS: Ensure HIGH Protein Chocolate 8oz Bottle PO SCH (12:00)
[2024-07-10] MEDS: IRON SUCROSE COMPLEX 100 ML IV SCH (14:32)
[2024-07-10] MEDS ORDERED: LORA-1121 PO (18:50)
[2024-07-10] MEDS ORDERED: TRAZ-228 PO (18:50)
[2024-07-11] VITALS (101 sets, daily range): BP systolic 79–111; BP diastolic 35–74; PULSE 64–97; RESP 12–29; TEMP 97.3–98.7; O2SAT 80–100
[2024-07-11 04:03] LABS: Basophils # (auto) 0.1 10 ^3/uL (0-0.2); Basophils % (auto) 1.6 % (0.0-2.0); Eosinophils # (auto) 0.1 10 ^3/uL (0-0.8); Eosinophils % (auto) 1.7 % (0.0-7.0); Hematocrit 34.3 % (36.0-46.0); Hemoglobin 11.8 g/dL (12.2-16.2); Lymphocytes # (auto) 0.8 10 ^3/uL (0.4-5.4); Mean Corpuscular Hemoglobin 29.5 pg (28.0-32.0); Mean Corpuscular Hgb Conc. 34.4 g/dL (32.0-36.0); Mean Corpuscular Volume 85.7 fL (80.0-100.0); Monocytes # (auto) 0.5 10 ^3/uL (0-1.3); Monocytes % (auto) 12.5 % (0.0-12.0); Neutrophils # (auto) 2.8 10 ^3/uL (1.6-8.6); Neutrophils % (auto) 66.2 % (37.0-80.0); Nucleated Red Blood Cells % 0.2 %; Platelet Count (auto) 195 10^3/uL (140-450); Red Blood Cells 4.01 10^6/uL (4.0-5.20); Red Cell Distribution Width 18.7 % (11.8-14.3); White Blood Cell 4.3 10^3/uL (4.4-10.8)
[2024-07-11 04:10] LABS: Alkaline Phosphatase 68 U/L (46-116)
[2024-07-11 04:11] LABS: Alanine Aminotransferase 30 U/L (7-40); Albumin 4.1 g/dL (3.2-4.8); Anion Gap 9 (5-15); Aspartate Aminotransferase 16 U/L (13-40); BUN/Creatinine Ratio 11.5 (10.0-20.0); Bilirubin, Total 0.9 mg/dL (0.2-1.0); Blood Urea Nitrogen 15 mg/dL (9-23); Carbon Dioxide 29 mmol/L (20-30); Chloride 91 mmol/L (98-107); Glucose 137 mg/dL (74-106); Potassium 3.6 mmol/L (3.5-5.1); Sodium 129 mmol/L (136-145); Total Protein 6.3 g/dL (5.7-8.2)
[2024-07-11] MEDS: POTASSIUM EFFERVESENT TAB 25 MEQ PO ONE (09:15)
[2024-07-11] MEDS: AMIODARONE HCL 200 MG TAB PO SCH (10:52)
[2024-07-11] MEDS: BUMETANIDE 1 MG TAB PO SCH (10:52)
[2024-07-11] MEDS: NOREPINEPHRINE 8 MG/250ML KIT 250 ML IV SCH (13:09)
[2024-07-11] MEDS: POTASSIUM CHL 20 Meq TABLET PO ONE (18:28)
[2024-07-12] VITALS (100 sets, daily range): BP systolic 80–120; BP diastolic 38–83; PULSE 75–93; RESP 13–33; TEMP 96.7–98.6; O2SAT 84–100
[2024-07-12] MEDS: traZODone HCL 50 MG TAB PO PRN (00:53)
[2024-07-12 04:45] LABS: Basophils # (auto) 0 10 ^3/uL (0-0.2); Basophils % (auto) 0.8 % (0.0-2.0); Eosinophils # (auto) 0 10 ^3/uL (0-0.8); Eosinophils % (auto) 0.3 % (0.0-7.0); Hematocrit 33.7 % (36.0-46.0); Hemoglobin 11.4 g/dL (12.2-16.2); Lymphocytes # (auto) 0.4 10 ^3/uL (0.4-5.4); Mean Corpuscular Hemoglobin 29.1 pg (28.0-32.0); Mean Corpuscular Hgb Conc. 33.7 g/dL (32.0-36.0); Mean Corpuscular Volume 86.5 fL (80.0-100.0); Monocytes # (auto) 0.5 10 ^3/uL (0-1.3); Monocytes % (auto) 11.4 % (0.0-12.0); Neutrophils # (auto) 3.5 10 ^3/uL (1.6-8.6); Neutrophils % (auto) 79.5 % (37.0-80.0); Nucleated Red Blood Cells % 0.2 %; Platelet Count (auto) 177 10^3/uL (140-450); Red Cell Distribution Width 18.5 % (11.8-14.3); White Blood Cell 4.4 10^3/uL (4.4-10.8)
[2024-07-12 04:52] LABS: Calcium 9.6 mg/dL (8.7-10.4); Chloride 94 mmol/L (98-107); Potassium 3.5 mmol/L (3.5-5.1); Sodium 130 mmol/L (136-145)
[2024-07-12 04:53] LABS: Anion Gap 8 (5-15); Carbon Dioxide 28 mmol/L (20-30)
[2024-07-12 04:58] LABS: Blood Urea Nitrogen 14 mg/dL (9-23); Glucose 118 mg/dL (74-106)
[2024-07-12] MEDS: LORazepam 0.5 MG TAB PO PRN (16:22)
[2024-07-12] MEDS: POTASSIUM CHL 20 Meq TABLET PO ONE (16:22)
[2024-07-13] VITALS (102 sets, daily range): BP systolic 75–200; BP diastolic 43–146; PULSE 66–101; RESP 13–43; TEMP 97.8–100.6; O2SAT 8–100
[2024-07-13 04:33] LABS: Anion Gap 8 (5-15); Calcium 9.3 mg/dL (8.7-10.4); Carbon Dioxide 26 mmol/L (20-30); Chloride 96 mmol/L (98-107); Potassium 3.7 mmol/L (3.5-5.1); Sodium 130 mmol/L (136-145)
[2024-07-13 04:38] LABS: Glucose 104 mg/dL (74-106)
[2024-07-13 04:39] LABS: BUN/Creatinine Ratio 12.6 (10.0-20.0); Blood Urea Nitrogen 14 mg/dL (9-23); Magnesium 1.7 mg/dL (1.6-2.6)
[2024-07-13] MEDS: MAGNESIUM SULFATE 1GM/100ML 100 ML IV ONE (06:13)
[2024-07-13 11:56] LABS: Erythrocyte Sedimentation Rate 8 mm/hr (0-20)
[2024-07-13] MEDS ORDERED: PIPERACILLIN-TAZOB 3.375GM 100 ML IV SCH (14:00)
[2024-07-13] MEDS: PIPERACILLIN-TAZOB 3.375GM 100 ML IV SCH (17:57)
[2024-07-13] MEDS: LORazepam 0.5 MG TAB PO ONE (18:01)
[2024-07-13] MEDS: LORazepam 2MG/ML-1ML VIAL ONE (18:12)
[2024-07-13] MEDS: LORazepam 2MG/ML-1ML VIAL IV ONE (18:12)
[2024-07-13] MEDS ORDERED: FUROSEMIDE 40 MG/4 ML VIAL IV ONE (18:30)
[2024-07-13] MEDS: BUMETANIDE 1mg/4ml VIAL (0.25mg/ml) ONE (18:41)
[2024-07-13 19:33] LABS: Base Excess -10.2 mmol/L (-2.0-3.0)
[2024-07-13] MEDS: ETOMIDATE (2MG/ML) 20ML VIAL IV ONE (19:42)
[2024-07-13] MEDS: ROCURONIUM 10MG/ML 10ML VIAL IV ONE (19:44)
[2024-07-13] MEDS: fentaNYL Drip 2500mCg/250mlNS 250 ML IV ONE (19:50)
[2024-07-13] MEDS: MIDAZOLAM DRIP 50 mg/50mL 50 ML IV ONE (19:50)
[2024-07-13] MEDS: BUMETANIDE 2.5mg/10ml (0.25 mg/ml) INJ IV ONE (19:51)
[2024-07-13] MEDS: fentaNYL Drip 2500mCg/250mlNS 250 ML IV SCH (20:00)
[2024-07-13] MEDS: MIDAZOLAM DRIP 50 mg/50mL 50 ML IV SCH (20:00)
[2024-07-13 22:45] LABS: Base Excess -2.5 mmol/L (-2.0-3.0)
[2024-07-14] VITALS (117 sets, daily range): BP systolic 77–123; BP diastolic 28–71; PULSE 65–105; RESP 14–26; TEMP 99–100.6; O2SAT 99–100
[2024-07-14 04:07] LABS: Basophils # (auto) 0.1 10 ^3/uL (0-0.2); Basophils % (auto) 0.6 % (0.0-2.0); Eosinophils # (auto) 0 10 ^3/uL (0-0.8); Hemoglobin 12.4 g/dL (12.2-16.2); Lymphocytes # (auto) 0.8 10 ^3/uL (0.4-5.4); Lymphocytes % (auto) 8.5 % (10.0-50.0); Mean Corpuscular Hemoglobin 29.6 pg (28.0-32.0); Mean Corpuscular Hgb Conc. 33.4 g/dL (32.0-36.0); Mean Corpuscular Volume 88.5 fL (80.0-100.0); Monocytes # (auto) 1.6 10 ^3/uL (0-1.3); Monocytes % (auto) 16.7 % (0.0-12.0); Neutrophils # (auto) 7.3 10 ^3/uL (1.6-8.6); Neutrophils % (auto) 74.2 % (37.0-80.0); Nucleated Red Blood Cells % 4.9 %; Platelet Count (auto) 155 10^3/uL (140-450); Red Blood Cells 4.19 10^6/uL (4.0-5.20); Red Cell Distribution Width 18.9 % (11.8-14.3); White Blood Cell 9.8 10^3/uL (4.4-10.8)
[2024-07-14 04:19] LABS: Alanine Aminotransferase 225 U/L (7-40); Albumin 3.8 g/dL (3.2-4.8); Alkaline Phosphatase 73 U/L (46-116); Anion Gap 18 (5-15); Aspartate Aminotransferase 425 U/L (13-40); Bilirubin, Total 1.2 mg/dL (0.2-1.0); Blood Urea Nitrogen 17 mg/dL (9-23); Calcium 9.8 mg/dL (8.7-10.4); Carbon Dioxide 19 mmol/L (20-30); Chloride 92 mmol/L (98-107); Glucose 103 mg/dL (74-106); Magnesium 2.1 mg/dL (1.6-2.6); Phosphorus 3.7 mg/dL (2.4-5.1); Potassium 4.2 mmol/L (3.5-5.1); Sodium 129 mmol/L (136-145); Total Protein 6.8 g/dL (5.7-8.2)
[2024-07-14 07:25] LABS: Base Excess 4.2 mmol/L (-2.0-3.0)
[2024-07-14] MEDS: BUMETANIDE 2.5mg/10ml (0.25 mg/ml) INJ IV ONE (16:21)
[2024-07-14] MEDS: DOBUTamine 1000MCG/ML 250 ML IV SCH (17:38)
[2024-07-14] MEDS: NOREPINEPHRINE BITARTRATE 16 MG in SODIUM CHL 0.9% 234 ML IV SCH (18:41)
[2024-07-14] MEDS: PHENYLEPHRINE IV 250 ML IV SCH (18:59)
[2024-07-14] MEDS: FUROSEMIDE INJECTION 100 MG in D5W 5% 100 ML IV SCH (19:12)
[2024-07-14] MEDS ORDERED: PHENYLEPHRINE INJ 40 MG in SODIUM CHL 0.9% 246 ML IV SCH (19:15)
[2024-07-14] MEDS: VASOPRESSIN 20 UNITS in SODIUM CHL 0.9% 99 ML IV SCH (20:45)
[2024-07-14] MEDS ORDERED: VASOPRESSIN 40 UNITS in D5W 5% 198 ML IV SCH (20:45)
[2024-07-14] MEDS: HYDROCORTISONE SOD SUCC 100 MG/2ML INJ VIAL IV SCH (21:25)
[2024-07-14] MEDS: PHENYLEPHRINE INJ 80 MG in SODIUM CHL 0.9% 242 ML IV SCH (23:05)
[2024-07-15] VITALS (105 sets, daily range): BP systolic 82–123; BP diastolic 36–73; PULSE 72–106; RESP 15–26; TEMP 97.7–100.2; O2SAT 98–100
[2024-07-15] MEDS: NOREPINEPHRINE BITARTRATE 32 MG in SODIUM CHL 0.9% 218 ML IV SCH (02:33)
[2024-07-15 03:28] LABS: Chloride 96 mmol/L (98-107); Potassium 3.2 mmol/L (3.5-5.1); Sodium 129 mmol/L (136-145)
[2024-07-15 03:29] LABS: Anion Gap 13 (5-15); Calcium 8.7 mg/dL (8.7-10.4); Carbon Dioxide 20 mmol/L (20-30)
[2024-07-15 03:34] LABS: Blood Urea Nitrogen 13 mg/dL (9-23); Glucose 116 mg/dL (74-106)
[2024-07-15] MEDS: POTASSIUM CHL 20MEQ/100ML 200 ML IV ONE (06:58)
[2024-07-15] MEDS: POTASSIUM CHL 20MEQ/100ML 100 ML IV SCH (06:58)
[2024-07-15] MEDS: DOBUTamine 1000MCG/ML 250 ML IV SCH (07:30)
[2024-07-15 08:23] LABS: Base Excess -4.9 mmol/L (-2.0-3.0)
[2024-07-15 09:35] LABS: Basophils # (auto) 0 10 ^3/uL (0-0.2); Basophils % (auto) 0.4 % (0.0-2.0); Eosinophils # (auto) 0 10 ^3/uL (0-0.8); Hematocrit 38.3 % (36.0-46.0); Hemoglobin 12.7 g/dL (12.2-16.2); Lymphocytes # (auto) 0.6 10 ^3/uL (0.4-5.4); Lymphocytes % (auto) 5.8 % (10.0-50.0); Mean Corpuscular Hemoglobin 29.3 pg (28.0-32.0); Mean Corpuscular Hgb Conc. 33.1 g/dL (32.0-36.0); Mean Corpuscular Volume 88.5 fL (80.0-100.0); Monocytes # (auto) 1.2 10 ^3/uL (0-1.3); Monocytes % (auto) 12.7 % (0.0-12.0); Neutrophils # (auto) 7.9 10 ^3/uL (1.6-8.6); Neutrophils % (auto) 81.1 % (37.0-80.0); Platelet Count (auto) 157 10^3/uL (140-450); Red Blood Cells 4.33 10^6/uL (4.0-5.20); Red Cell Distribution Width 18.7 % (11.8-14.3); White Blood Cell 9.7 10^3/uL (4.4-10.8)
[2024-07-15 09:39] LABS: Nucleated Red Blood Cells % 3.4 %
[2024-07-15] MEDS: PANTOPRAZOLE 40 MG/10 ML VIAL INJ IV SCH (10:59)
[2024-07-16] VITALS (107 sets, daily range): BP systolic 81–116; BP diastolic 44–102; PULSE 80–105; RESP 17–24; TEMP 98.1–99.5; O2SAT 98–100
[2024-07-16 03:57] LABS: Chloride 97 mmol/L (98-107); Potassium 3.6 mmol/L (3.5-5.1); Sodium 131 mmol/L (136-145)
[2024-07-16 03:58] LABS: Anion Gap 13 (5-15); Calcium 9.1 mg/dL (8.7-10.4); Carbon Dioxide 21 mmol/L (20-30)
[2024-07-16 04:03] LABS: BUN/Creatinine Ratio 17.8 (10.0-20.0); Blood Urea Nitrogen 18 mg/dL (9-23); Glucose 144 mg/dL (74-106)
[2024-07-16 07:30] LABS: Base Excess -1.1 mmol/L (-2.0-3.0)
[2024-07-16] MEDS: FUROSEMIDE INJECTION 100 MG in D5W 5% 100 ML IV SCH (10:45)
[2024-07-16] MEDS: MAGNESIUM SULFATE 1GM/100ML 100 ML IV ONE (12:01)
[2024-07-16] MEDS: POTASSIUM CHL 20MEQ/100ML 100 ML IV ONE (13:53)
[2024-07-16] MEDS ORDERED: VANCOMYCIN PER PHARMACY 0 MG IV SCH (15:30)
[2024-07-16] MEDS: VANCOMYCIN 1.25GM/250ML 250 ML IV ONE (18:04)
[2024-07-17] VITALS (111 sets, daily range): BP systolic 79–134; BP diastolic 39–77; PULSE 75–96; RESP 15–26; TEMP 98.8–100.6; O2SAT 94–100
[2024-07-17] MEDS: VANCOMYCIN 750mg/150ml 150 ML IV SCH (05:39)
[2024-07-17 06:37] LABS: Base Excess -4.6 mmol/L (-2.0-3.0)
[2024-07-17 09:15] LABS: Alanine Aminotransferase 316 U/L (7-40); Alkaline Phosphatase 62 U/L (46-116); Anion Gap 12 (5-15); Aspartate Aminotransferase 244 U/L (13-40); BUN/Creatinine Ratio 18.1 (10.0-20.0); Blood Urea Nitrogen 26 mg/dL (9-23); Calcium 8.6 mg/dL (8.7-10.4); Carbon Dioxide 20 mmol/L (20-30); Chloride 96 mmol/L (98-107); Glucose 131 mg/dL (74-106); Potassium 4.6 mmol/L (3.5-5.1); Sodium 128 mmol/L (136-145)
[2024-07-17 09:16] LABS: Albumin 3.5 g/dL (3.2-4.8); Bilirubin, Total 1.3 mg/dL (0.2-1.0); Total Protein 6.6 g/dL (5.7-8.2)
[2024-07-17 10:05] LABS: Basophils # (auto) 0 10 ^3/uL (0-0.2); Basophils % (auto) 0.3 % (0.0-2.0); Eosinophils # (auto) 0 10 ^3/uL (0-0.8); Eosinophils % (auto) 0.1 % (0.0-7.0); Hematocrit 36.7 % (36.0-46.0); Hemoglobin 12.2 g/dL (12.2-16.2); Lymphocytes # (auto) 0.5 10 ^3/uL (0.4-5.4); Lymphocytes % (auto) 7.4 % (10.0-50.0); Mean Corpuscular Hemoglobin 29.6 pg (28.0-32.0); Mean Corpuscular Hgb Conc. 33.2 g/dL (32.0-36.0); Mean Corpuscular Volume 89.2 fL (80.0-100.0); Monocytes # (auto) 0.8 10 ^3/uL (0-1.3); Monocytes % (auto) 13.1 % (0.0-12.0); Neutrophils % (auto) 79.1 % (37.0-80.0); Platelet Count (auto) 146 10^3/uL (140-450); Red Blood Cells 4.12 10^6/uL (4.0-5.20); Red Cell Distribution Width 19.1 % (11.8-14.3); White Blood Cell 6.3 10^3/uL (4.4-10.8)
[2024-07-17 10:21] LABS: Nucleated Red Blood Cells % 5.5 %
[2024-07-17] MEDS: ACETAMINOPHEN 650 mg PER 20.3 mL UD GT PRN (13:44)
[2024-07-17] MEDS: DOBUTamine HCL 500 MG in D5W 5% 210 ML IV SCH (16:28)
[2024-07-17 16:35] LABS: COVID19 ANTIGEN SOFIA FIA POSITIVE (NEGATIVE)
[2024-07-17] MEDS ORDERED: REMDESIVIR PER PHARMACY 0 ML IV SCH (18:00)
[2024-07-17] MEDS: Jevity 1.2 Cal/Fiber 1 Liter GT SCH (18:21)
[2024-07-17] MEDS: DexAMETHasone SOD PHOS 4 MG/1ML SDV INJ IV ONE (18:42)
[2024-07-17] MEDS: REMDESIVIR 200 MG in NS 210ml LOADING DOSE ADULT IV ONE (22:15)
[2024-07-18] VITALS (110 sets, daily range): BP systolic 85–116; BP diastolic 44–72; PULSE 77–95; RESP 18–20; TEMP 99–100.2; O2SAT 96–100
[2024-07-18 03:42] LABS: Hematocrit 36.6 % (36.0-46.0); Hemoglobin 12.1 g/dL (12.2-16.2); Mean Corpuscular Hemoglobin 29.2 pg (28.0-32.0); Mean Corpuscular Hgb Conc. 33.1 g/dL (32.0-36.0); Mean Corpuscular Volume 88.3 fL (80.0-100.0); Platelet Count (auto) 128 10^3/uL (140-450); Red Blood Cells 4.15 10^6/uL (4.0-5.20); Red Cell Distribution Width 19.2 % (11.8-14.3); White Blood Cell 5.1 10^3/uL (4.4-10.8)
[2024-07-18 03:48] LABS: Basophils % (manual) 0 (0.0-2.0); Blast Cells 0; Eosinophils % (manual) 0 (0-7); Metamyelocytes % 0; Myelocytes % 0; Promyelocytes % 0; Reactive Lymphocytes 0
[2024-07-18 04:00] LABS: Alanine Aminotransferase 279 U/L (7-40); Alkaline Phosphatase 60 U/L (46-116); Anion Gap 9 (5-15); BUN/Creatinine Ratio 20.9 (10.0-20.0); Blood Urea Nitrogen 29 mg/dL (9-23); Calcium 8.6 mg/dL (8.7-10.4); Carbon Dioxide 22 mmol/L (20-30); Chloride 98 mmol/L (98-107); Glucose 150 mg/dL (74-106); Potassium 3.8 mmol/L (3.5-5.1); Sodium 129 mmol/L (136-145)
[2024-07-18 04:01] LABS: Albumin 3.2 g/dL (3.2-4.8); Aspartate Aminotransferase 190 U/L (13-40); Bilirubin, Total 1.2 mg/dL (0.2-1.0); Total Protein 6.1 g/dL (5.7-8.2)
[2024-07-18 06:44] LABS: Band Neutrophils % (manual) 1; Lymphocytes % (manual) 4 (10.0-50.0); Monocytes % (manual) 6 (0-12)
[2024-07-18 06:45] LABS: Anisocytosis Slight; Large Platelets FEW; Ovalocytes FEW; Platelet Estimate Decreased
[2024-07-18 07:53] LABS: Base Excess -2.5 mmol/L (-2.0-3.0)
[2024-07-18] MEDS: DexAMETHasone SOD PHOS 10MG/1ML VIAL INJ IV SCH (09:09)
[2024-07-18] MEDS: REMDESIVIR 100mg 100 MG in SODIUM CHL 0.9% 230 ML IV SCH (14:51)
[2024-07-19] VITALS (108 sets, daily range): BP systolic 82–159; BP diastolic 27–84; PULSE 64–101; RESP 13–19; TEMP 99.1–99.9; O2SAT 92–100
[2024-07-19 04:48] LABS: Hematocrit 38.4 % (36.0-46.0); Hemoglobin 12.5 g/dL (12.2-16.2); Mean Corpuscular Hgb Conc. 32.7 g/dL (32.0-36.0); Mean Corpuscular Volume 91.8 fL (80.0-100.0); Platelet Count (auto) 113 10^3/uL (140-450); Red Blood Cells 4.18 10^6/uL (4.0-5.20); White Blood Cell 5.6 10^3/uL (4.4-10.8)
[2024-07-19 04:51] LABS: Alanine Aminotransferase 249 U/L (7-40); Alkaline Phosphatase 57 U/L (46-116); Anion Gap 11 (5-15); Aspartate Aminotransferase 152 U/L (13-40); Blood Urea Nitrogen 29 mg/dL (9-23); Calcium 8.6 mg/dL (8.7-10.4); Carbon Dioxide 19 mmol/L (20-30); Chloride 99 mmol/L (98-107); Glucose 154 mg/dL (74-106); Potassium 4.1 mmol/L (3.5-5.1); Sodium 129 mmol/L (136-145)
[2024-07-19 04:54] LABS: Bilirubin, Total 1.1 mg/dL (0.2-1.0)
[2024-07-19 05:01] LABS: Red Cell Distribution Width 20.1 % (11.8-14.3)
[2024-07-19 05:02] LABS: Band Neutrophils % (manual) 0; Basophils % (manual) 0 (0.0-2.0); Blast Cells 0; Eosinophils % (manual) 0 (0-7); Metamyelocytes % 0; Promyelocytes % 0; Reactive Lymphocytes 0
[2024-07-19 06:39] LABS: Lymphocytes % (manual) 11 (10.0-50.0); Monocytes % (manual) 10 (0-12); Myelocytes % 1
[2024-07-19 06:40] LABS: Anisocytosis Slight; Large Platelets FEW; Ovalocytes FEW; Platelet Estimate Decreased
[2024-07-19 06:41] LABS: Target Cell FEW
[2024-07-19 06:54] LABS: Base Excess -3.3 mmol/L (-2.0-3.0)
[2024-07-19] MEDS: FUROSEMIDE 40 MG/4 ML VIAL IV SCH (10:30)
[2024-07-19 15:33] LABS: Magnesium 2.5 mg/dL (1.6-2.6)
[2024-07-19 15:35] LABS: Phosphorus 4.8 mg/dL (2.4-5.1)
[2024-07-19 16:16] LABS: Sodium Urine < 10 mmol/L (40-220)
[2024-07-19] MEDS: BUMETANIDE INJECTION 12.5 MG in GIVE UN-DILUTED 0 ML IV SCH (20:30)
[2024-07-20] VITALS (106 sets, daily range): BP systolic 84–111; BP diastolic 52–79; PULSE 67–94; RESP 17–19; TEMP 98.4–99.7; O2SAT 24–100
[2024-07-20 04:41] LABS: Basophils # (auto) 0 10 ^3/uL (0-0.2); Basophils % (auto) 0.3 % (0.0-2.0); Eosinophils # (auto) 0 10 ^3/uL (0-0.8); Hematocrit 34.2 % (36.0-46.0); Lymphocytes # (auto) 0.3 10 ^3/uL (0.4-5.4); Lymphocytes % (auto) 7.3 % (10.0-50.0); Mean Corpuscular Hemoglobin 30.7 pg (28.0-32.0); Mean Corpuscular Hgb Conc. 34.9 g/dL (32.0-36.0); Mean Corpuscular Volume 87.9 fL (80.0-100.0); Monocytes # (auto) 0.5 10 ^3/uL (0-1.3); Monocytes % (auto) 12.9 % (0.0-12.0); Neutrophils # (auto) 2.8 10 ^3/uL (1.6-8.6); Neutrophils % (auto) 79.5 % (37.0-80.0); Nucleated Red Blood Cells % 9.6 %; Platelet Count (auto) 112 10^3/uL (140-450); Red Cell Distribution Width 19.6 % (11.8-14.3); White Blood Cell 3.5 10^3/uL (4.4-10.8)
[2024-07-20 04:50] LABS: Alanine Aminotransferase 207 U/L (7-40); Alkaline Phosphatase 54 U/L (46-116); Anion Gap 8 (5-15); Aspartate Aminotransferase 103 U/L (13-40); BUN/Creatinine Ratio 33.1 (10.0-20.0); Bilirubin, Total 1.3 mg/dL (0.2-1.0); Calcium 8.2 mg/dL (8.7-10.4); Carbon Dioxide 25 mmol/L (20-30); Chloride 100 mmol/L (98-107); Glucose 167 mg/dL (74-106); Potassium 3.7 mmol/L (3.5-5.1); Sodium 133 mmol/L (136-145); Total Protein 5.8 g/dL (5.7-8.2)
[2024-07-20 05:01] LABS: Blood Urea Nitrogen 47 mg/dL (9-23)
[2024-07-20 09:17] LABS: Base Excess -1.7 mmol/L (-2.0-3.0)
[2024-07-20] MEDS: IRON SUCROSE COMPLEX 100 ML IV SCH (12:32)
[2024-07-21] VITALS (103 sets, daily range): BP systolic 77–107; BP diastolic 43–74; PULSE 60–98; RESP 16–19; TEMP 96.3–101.7; O2SAT 88–100
[2024-07-21 04:11] LABS: Basophils # (auto) 0 10 ^3/uL (0-0.2); Basophils % (auto) 0.1 % (0.0-2.0); Eosinophils # (auto) 0 10 ^3/uL (0-0.8); Hematocrit 33.9 % (36.0-46.0); Hemoglobin 11.6 g/dL (12.2-16.2); Lymphocytes # (auto) 0.2 10 ^3/uL (0.4-5.4); Lymphocytes % (auto) 6.2 % (10.0-50.0); Mean Corpuscular Hgb Conc. 34.2 g/dL (32.0-36.0); Mean Corpuscular Volume 87.5 fL (80.0-100.0); Monocytes # (auto) 0.4 10 ^3/uL (0-1.3); Neutrophils # (auto) 2.9 10 ^3/uL (1.6-8.6); Neutrophils % (auto) 82.7 % (37.0-80.0); Nucleated Red Blood Cells % 10.6 %; Platelet Count (auto) 82 10^3/uL (140-450); Red Blood Cells 3.88 10^6/uL (4.0-5.20); Red Cell Distribution Width 20.2 % (11.8-14.3); White Blood Cell 3.5 10^3/uL (4.4-10.8)
[2024-07-21 05:31] LABS: Alanine Aminotransferase 162 U/L (7-40); Albumin 2.9 g/dL (3.2-4.8); Alkaline Phosphatase 56 U/L (46-116); Anion Gap 8 (5-15); Aspartate Aminotransferase 55 U/L (13-40); BUN/Creatinine Ratio 34.7 (10.0-20.0); Bilirubin, Total 1.3 mg/dL (0.2-1.0); Blood Urea Nitrogen 42 mg/dL (9-23); Calcium 8.1 mg/dL (8.7-10.4); Carbon Dioxide 28 mmol/L (20-30); Chloride 103 mmol/L (98-107); Glucose 159 mg/dL (74-106); Magnesium 2.3 mg/dL (1.6-2.6); Potassium 3.2 mmol/L (3.5-5.1); Sodium 139 mmol/L (136-145); Total Protein 5.5 g/dL (5.7-8.2)
[2024-07-21] MEDS: LEVOTHYROXINE SODIUM 100 MCG TAB PO SCH (06:02)
[2024-07-21 07:40] LABS: Anisocytosis Slight; Ovalocytes MODERATE
[2024-07-21 07:41] LABS: Platelet Estimate Decreased; Target Cell FEW
[2024-07-21] MEDS: POTASSIUM CHL 20MEQ/100ML 100 ML IV SCH (08:59)
[2024-07-22] VITALS (108 sets, daily range): BP systolic 79–110; BP diastolic 52–76; PULSE 74–105; RESP 15–29; TEMP 97.3–100.8; O2SAT 85–100
[2024-07-22 04:06] LABS: Basophils # (auto) 0 10 ^3/uL (0-0.2); Basophils % (auto) 0.1 % (0.0-2.0); Eosinophils # (auto) 0 10 ^3/uL (0-0.8); Eosinophils % (auto) 0.1 % (0.0-7.0); Hematocrit 37.5 % (36.0-46.0); Hemoglobin 12.6 g/dL (12.2-16.2); Lymphocytes # (auto) 0.2 10 ^3/uL (0.4-5.4); Lymphocytes % (auto) 3.6 % (10.0-50.0); Mean Corpuscular Hemoglobin 29.7 pg (28.0-32.0); Mean Corpuscular Hgb Conc. 33.5 g/dL (32.0-36.0); Mean Corpuscular Volume 88.8 fL (80.0-100.0); Monocytes # (auto) 0.5 10 ^3/uL (0-1.3); Monocytes % (auto) 8.3 % (0.0-12.0); Neutrophils # (auto) 5.2 10 ^3/uL (1.6-8.6); Neutrophils % (auto) 87.9 % (37.0-80.0); Platelet Count (auto) 85 10^3/uL (140-450); Red Blood Cells 4.23 10^6/uL (4.0-5.20); White Blood Cell 5.9 10^3/uL (4.4-10.8)
[2024-07-22 04:23] LABS: Alanine Aminotransferase 154 U/L (7-40); Alkaline Phosphatase 65 U/L (46-116); Anion Gap 9 (5-15); Aspartate Aminotransferase 69 U/L (13-40); BUN/Creatinine Ratio 34.2 (10.0-20.0); Bilirubin, Total 1.4 mg/dL (0.2-1.0); Blood Urea Nitrogen 50 mg/dL (9-23); Calcium 8.4 mg/dL (8.7-10.4); Carbon Dioxide 25 mmol/L (20-30); Chloride 103 mmol/L (98-107); Glucose 184 mg/dL (74-106); Magnesium 2.3 mg/dL (1.6-2.6); Potassium 4.6 mmol/L (3.5-5.1); Sodium 137 mmol/L (136-145); Total Protein 5.9 g/dL (5.7-8.2)
[2024-07-22 05:34] LABS: Anisocytosis Slight
[2024-07-22 05:35] LABS: Ovalocytes MODERATE
[2024-07-22 05:37] LABS: Large Platelets FEW; Platelet Estimate Decrea; Tear Drop Cells FEW
[2024-07-22 06:19] LABS: Nucleated Red Blood Cells % 20.9 %
[2024-07-22 07:13] LABS: Base Excess 1.1 mmol/L (-2.0-3.0)
[2024-07-22] MEDS: FUROSEMIDE INJECTION 100 MG in SODIUM CHL 0.9% 100 ML IV SCH (09:21)
[2024-07-22 21:31] LABS: Potassium 4.5 mmol/L (3.5-5.1)
[2024-07-22 21:38] LABS: Magnesium 2.5 mg/dL (1.6-2.6)
[2024-07-23] VITALS (106 sets, daily range): BP systolic 84–176; BP diastolic 39–74; PULSE 82–112; RESP 15–34; TEMP 98.2–99.5; O2SAT 83–100
[2024-07-23 04:38] LABS: Alanine Aminotransferase 131 U/L (7-40); Alkaline Phosphatase 65 U/L (46-116); Calcium 8.6 mg/dL (8.7-10.4)
[2024-07-23 04:39] LABS: Anion Gap 11 (5-15); Aspartate Aminotransferase 53 U/L (13-40); BUN/Creatinine Ratio 33.1 (10.0-20.0); Blood Urea Nitrogen 52 mg/dL (9-23); Carbon Dioxide 23 mmol/L (20-30); Chloride 103 mmol/L (98-107); Glucose 169 mg/dL (74-106); Magnesium 2.5 mg/dL (1.6-2.6); Potassium 4.1 mmol/L (3.5-5.1); Sodium 137 mmol/L (136-145)
[2024-07-23 04:40] LABS: Total Protein 5.9 g/dL (5.7-8.2)
[2024-07-23 05:21] LABS: Hemoglobin 13.1 g/dL (12.2-16.2); Mean Corpuscular Hemoglobin 29.5 pg (28.0-32.0); Mean Corpuscular Volume 92.2 fL (80.0-100.0); Platelet Count (auto) 81 10^3/uL (140-450); Red Blood Cells 4.45 10^6/uL (4.0-5.20); White Blood Cell 6.9 10^3/uL (4.4-10.8)
[2024-07-23 05:22] LABS: Band Neutrophils % (manual) 0; Basophils % (manual) 0 (0.0-2.0); Blast Cells 0; Eosinophils % (manual) 0 (0-7); Lymphocytes % (manual) 5 (10.0-50.0); Metamyelocytes % 0; Monocytes % (manual) 8 (0-12); Myelocytes % 1; Promyelocytes % 0; Reactive Lymphocytes 0; Red Cell Distribution Width 23.3 % (11.8-14.3)
[2024-07-23 05:23] LABS: Anisocytosis Slight; Giant Platelets Few; Large Platelets FEW; Ovalocytes MODERATE; Platelet Estimate Decreased; Target Cell FEW
[2024-07-23] MEDS: fentaNYL Drip 2500mCg/250mlNS 250 ML IV SCH (13:38)
[2024-07-23] MEDS: FUROSEMIDE INJECTION 100 MG in SODIUM CHL 0.9% 100 ML IV SCH (14:45)
[2024-07-24] VITALS (97 sets, daily range): BP systolic 30–144; BP diastolic 16–129; PULSE 70–101; RESP 16–22; TEMP 97.5–99.5; O2SAT 91–100
[2024-07-24 04:59] LABS: Alanine Aminotransferase 105 U/L (7-40); Alkaline Phosphatase 75 U/L (46-116); Anion Gap 11 (5-15); Aspartate Aminotransferase 35 U/L (13-40); BUN/Creatinine Ratio 38.3 (10.0-20.0); Blood Urea Nitrogen 54 mg/dL (9-23); Calcium 8.7 mg/dL (8.7-10.4); Carbon Dioxide 29 mmol/L (20-30); Chloride 104 mmol/L (98-107); Glucose 166 mg/dL (74-106); Potassium 3.6 mmol/L (3.5-5.1); Sodium 144 mmol/L (136-145)
[2024-07-24 05:00] LABS: Bilirubin, Total 2.3 mg/dL (0.2-1.0); Total Protein 5.8 g/dL (5.7-8.2)
[2024-07-24 05:13] LABS: Hematocrit 38.5 % (36.0-46.0); Hemoglobin 12.8 g/dL (12.2-16.2); Mean Corpuscular Hemoglobin 30.2 pg (28.0-32.0); Mean Corpuscular Hgb Conc. 33.2 g/dL (32.0-36.0); Platelet Count (auto) 83 10^3/uL (140-450); Red Blood Cells 4.23 10^6/uL (4.0-5.20); White Blood Cell 8.5 10^3/uL (4.4-10.8)
[2024-07-24 05:33] LABS: Basophils % (manual) 0 (0.0-2.0); Blast Cells 0; Eosinophils % (manual) 0 (0-7); Metamyelocytes % 0; Myelocytes % 0; Promyelocytes % 0; Reactive Lymphocytes 0
[2024-07-24 08:29] LABS: Band Neutrophils % (manual) 9; Lymphocytes % (manual) 4 (10.0-50.0); Monocytes % (manual) 3 (0-12)
[2024-07-24 08:30] LABS: Anisocytosis Moderate; Large Platelets FEW; Ovalocytes FEW; Platelet Estimate Decrea; Target Cell FEW
[2024-07-24 12:39] LABS: COVID19 ANTIGEN SOFIA FIA POSITIVE (NEGATIVE)
[2024-07-24] MEDS: LIDOCAINE 2%HCL (LOCAL ANESTH.) INJ 20ML MDV ONE (14:03)
[2024-07-24] MEDS: IODIXANOL 320MG/ML 100ML BTL IV ONE (14:03)
[2024-07-24] MEDS: NOREPINEPHRINE BITARTRATE 32 MG in SODIUM CHL 0.9% 218 ML IV SCH (15:00)
[2024-07-24] MEDS: DIGOXIN (250MCG/ML) 2 ML AMPULE IV ONE (16:07)
[2024-07-24] MEDS: DOBUTamine HCL 500 MG in D5W 5% 210 ML IV SCH (19:00)
[2024-07-24] MEDS: MIDAZOLAM DRIP 50 mg/50mL 50 ML IV SCH (21:17)
[2024-07-24 22:26] LABS: Anion Gap 8 (5-15); Calcium 8.6 mg/dL (8.7-10.4); Carbon Dioxide 32 mmol/L (20-30); Chloride 107 mmol/L (98-107); Potassium 2.9 mmol/L (3.5-5.1); Sodium 147 mmol/L (136-145)
[2024-07-24 22:31] LABS: Glucose 132 mg/dL (74-106)
[2024-07-24 22:32] LABS: BUN/Creatinine Ratio 49.6 (10.0-20.0); Blood Urea Nitrogen 56 mg/dL (9-23); Magnesium 2.3 mg/dL (1.6-2.6)
[2024-07-24] MEDS: POTASSIUM CHL 20MEQ/100ML 100 ML IV SCH (22:44)
[2024-07-25] VITALS (103 sets, daily range): BP systolic 17–133; BP diastolic 10–73; PULSE 67–91; RESP 12–19; TEMP 91.6–99.7; O2SAT 94–100
[2024-07-25] MEDS: POTASSIUM CHL 20MEQ/100ML 100 ML IV SCH ×2 (01:49→18:05)
[2024-07-25] MEDS ORDERED: POTASSIUM CHL 20MEQ/100ML 100 ML IV ONE (02:00)
[2024-07-25 07:47] LABS: Base Excess 4.6 mmol/L (-2.0-3.0)
[2024-07-25] MEDS: DIGOXIN (250MCG/ML) 2 ML AMPULE IV SCH (08:55)
[2024-07-25 09:38] LABS: Hematocrit 37.8 % (36.0-46.0); Hemoglobin 12.3 g/dL (12.2-16.2); Mean Corpuscular Hemoglobin 30.2 pg (28.0-32.0); Mean Corpuscular Hgb Conc. 32.6 g/dL (32.0-36.0); Mean Corpuscular Volume 92.4 fL (80.0-100.0); Platelet Count (auto) 67 10^3/uL (140-450); Red Blood Cells 4.09 10^6/uL (4.0-5.20); White Blood Cell 11.2 10^3/uL (4.4-10.8)
[2024-07-25 09:41] LABS: Red Cell Distribution Width 24.6 % (11.8-14.3)
[2024-07-25 09:43] LABS: Band Neutrophils % (manual) 0; Basophils % (manual) 0 (0.0-2.0); Blast Cells 0; Eosinophils % (manual) 0 (0-7); Metamyelocytes % 0; Myelocytes % 0; Promyelocytes % 0; Reactive Lymphocytes 0
[2024-07-25 09:54] LABS: Alanine Aminotransferase 71 U/L (7-40); Albumin 2.8 g/dL (3.2-4.8); Alkaline Phosphatase 75 U/L (46-116); Anion Gap 9 (5-15); Aspartate Aminotransferase 26 U/L (13-40); BUN/Creatinine Ratio 50.5 (10.0-20.0); Blood Urea Nitrogen 48 mg/dL (9-23); Calcium 8.5 mg/dL (8.7-10.4); Carbon Dioxide 31 mmol/L (20-30); Chloride 110 mmol/L (98-107); Glucose 140 mg/dL (74-106); Potassium 3.5 mmol/L (3.5-5.1); Sodium 150 mmol/L (136-145)
[2024-07-25 09:55] LABS: Bilirubin, Total 2.8 mg/dL (0.2-1.0); Total Protein 5.2 g/dL (5.7-8.2)
[2024-07-25 11:16] LABS: Lymphocytes % (manual) 6 (10.0-50.0); Monocytes % (manual) 4 (0-12); Platelet Estimate Decreased
[2024-07-25 11:17] LABS: Target Cell FEW
[2024-07-25 11:18] LABS: Ovalocytes MANY; Tear Drop Cells FEW
[2024-07-25] MEDS: FREE WATER GT SCH (18:06)
[2024-07-26] VITALS (104 sets, daily range): BP systolic 18–129; BP diastolic 11–80; PULSE 69–98; RESP 14–19; TEMP 97.5–98.6; O2SAT 79–100
[2024-07-26 04:25] LABS: Basophils # (auto) 0 10 ^3/uL (0-0.2); Eosinophils # (auto) 0 10 ^3/uL (0-0.8); Hemoglobin 12.3 g/dL (12.2-16.2); Lymphocytes # (auto) 0.2 10 ^3/uL (0.4-5.4); Mean Corpuscular Hgb Conc. 32.4 g/dL (32.0-36.0); Neutrophils # (auto) 10.2 10 ^3/uL (1.6-8.6)
[2024-07-26 04:32] LABS: Basophils % (auto) 0.4 % (0.0-2.0); Eosinophils % (auto) 0.1 % (0.0-7.0); Lymphocytes % (auto) 1.7 % (10.0-50.0); Mean Corpuscular Hemoglobin 30.2 pg (28.0-32.0); Mean Corpuscular Volume 93.2 fL (80.0-100.0); Monocytes # (auto) 0.5 10 ^3/uL (0-1.3); Monocytes % (auto) 4.8 % (0.0-12.0); Nucleated Red Blood Cells % 2.6 %; Platelet Count (auto) 62 10^3/uL (140-450); Red Blood Cells 4.08 10^6/uL (4.0-5.20)
[2024-07-26 04:41] LABS: Red Cell Distribution Width 25.3 % (11.8-14.3)
[2024-07-26 04:45] LABS: Alanine Aminotransferase 57 U/L (7-40); Albumin 2.9 g/dL (3.2-4.8); Alkaline Phosphatase 74 U/L (46-116); Anion Gap 7 (5-15); Aspartate Aminotransferase 31 U/L (13-40); BUN/Creatinine Ratio 45.5 (10.0-20.0); Calcium 8.5 mg/dL (8.7-10.4); Carbon Dioxide 32 mmol/L (20-30); Chloride 113 mmol/L (98-107); Glucose 126 mg/dL (74-106); Magnesium 2.4 mg/dL (1.6-2.6); Sodium 152 mmol/L (136-145)
[2024-07-26 04:46] LABS: Bilirubin, Total 2.5 mg/dL (0.2-1.0); Total Protein 5.3 g/dL (5.7-8.2)
[2024-07-26 04:48] LABS: Blood Urea Nitrogen 35 mg/dL (9-23)
[2024-07-26 06:51] LABS: Anisocytosis Slight; Large Platelets FEW; Ovalocytes MANY; Platelet Estimate Decreased; Target Cell MODERATE
[2024-07-26 07:34] LABS: Base Excess 9.1 mmol/L (-2.0-3.0)
[2024-07-26] MEDS: LACTULOSE 20Gm/30ML SOLN PO PRN (07:40)
[2024-07-26] MEDS ORDERED: FREE WATER GT SCH (18:00)
[2024-07-26] MEDS: FREE WATER GT SCH (19:42)
[2024-07-27] VITALS (108 sets, daily range): BP systolic 21–147; BP diastolic -5–77; PULSE 69–97; RESP 12–22; TEMP 98.1–99.3; O2SAT 95–100
[2024-07-27 04:52] LABS: Calcium 8.5 mg/dL (8.7-10.4); Chloride 109 mmol/L (98-107); Potassium 3.4 mmol/L (3.5-5.1); Sodium 151 mmol/L (136-145)
[2024-07-27 04:53] LABS: Anion Gap 6 (5-15); Carbon Dioxide 36 mmol/L (20-31)
[2024-07-27 04:58] LABS: BUN/Creatinine Ratio 38.3 (10.0-20.0); Glucose 102 mg/dL (74-106)
[2024-07-27 04:59] LABS: Magnesium 2.2 mg/dL (1.6-2.6)
[2024-07-27 05:09] LABS: Blood Urea Nitrogen 23 mg/dL (9-23)
[2024-07-27] MEDS: POTASSIUM CHL 20MEQ/100ML 100 ML IV SCH ×2 (08:29→16:00)
[2024-07-27 11:11] LABS: Basophils # (auto) 0 10 ^3/uL (0-0.2); Basophils % (auto) 0.4 % (0.0-2.0); Eosinophils # (auto) 0 10 ^3/uL (0-0.8); Eosinophils % (auto) 0.1 % (0.0-7.0); Hemoglobin 11.7 g/dL (12.2-16.2); Lymphocytes # (auto) 0.1 10 ^3/uL (0.4-5.4); Lymphocytes % (auto) 1.4 % (10.0-50.0); Mean Corpuscular Hemoglobin 30.7 pg (28.0-32.0); Mean Corpuscular Hgb Conc. 32.5 g/dL (32.0-36.0); Mean Corpuscular Volume 94.3 fL (80.0-100.0); Monocytes # (auto) 0.5 10 ^3/uL (0-1.3); Monocytes % (auto) 5.1 % (0.0-12.0); Neutrophils # (auto) 9.7 10 ^3/uL (1.6-8.6); Nucleated Red Blood Cells % 0.4 %; Platelet Count (auto) 59 10^3/uL (140-450); Red Blood Cells 3.82 10^6/uL (4.0-5.20); White Blood Cell 10.4 10^3/uL (4.4-10.8)
[2024-07-27 11:12] LABS: Red Cell Distribution Width 26.9 % (11.8-14.3)
[2024-07-27 11:59] LABS: Base Excess 12.9 mmol/L (-2.0-3.0)
[2024-07-28] VITALS (109 sets, daily range): BP systolic 23–144; BP diastolic 12–86; PULSE 68–102; RESP 11–25; TEMP 97.7–99.7; O2SAT 95–100
[2024-07-28 07:19] LABS: Alanine Aminotransferase 40 U/L (7-40); Albumin 2.8 g/dL (3.2-4.8); Alkaline Phosphatase 69 U/L (46-116); Calcium 8.6 mg/dL (8.7-10.4); Carbon Dioxide 34 mmol/L (20-31); Chloride 106 mmol/L (98-107); Glucose 115 mg/dL (74-106); Potassium 3.9 mmol/L (3.5-5.1); Sodium 148 mmol/L (136-145)
[2024-07-28 07:20] LABS: Anion Gap 8 (5-15); Aspartate Aminotransferase 46 U/L (13-40); BUN/Creatinine Ratio 31.4 (10.0-20.0); Bilirubin, Total 2.8 mg/dL (0.2-1.0); Blood Urea Nitrogen 16 mg/dL (9-23); Total Protein 5.5 g/dL (5.7-8.2)
[2024-07-28 07:58] LABS: Base Excess 7.4 mmol/L (-2.0-3.0)
[2024-07-28 13:58] LABS: Base Excess 9.6 mmol/L (-2.0-3.0)
[2024-07-28 16:34] LABS: Basophils # (auto) 0 10 ^3/uL (0-0.2); Basophils % (auto) 0.4 % (0.0-2.0); Eosinophils # (auto) 0 10 ^3/uL (0-0.8); Eosinophils % (auto) 0.1 % (0.0-7.0); Hematocrit 36.3 % (36.0-46.0); Hemoglobin 11.7 g/dL (12.2-16.2); Lymphocytes # (auto) 0.2 10 ^3/uL (0.4-5.4); Lymphocytes % (auto) 1.7 % (10.0-50.0); Mean Corpuscular Hemoglobin 30.2 pg (28.0-32.0); Mean Corpuscular Hgb Conc. 32.2 g/dL (32.0-36.0); Mean Corpuscular Volume 93.7 fL (80.0-100.0); Monocytes # (auto) 0.5 10 ^3/uL (0-1.3); Monocytes % (auto) 4.7 % (0.0-12.0); Neutrophils # (auto) 9.5 10 ^3/uL (1.6-8.6); Neutrophils % (auto) 93.1 % (37.0-80.0); Nucleated Red Blood Cells % 0.1 %; Platelet Count (auto) 60 10^3/uL (140-450); Red Blood Cells 3.88 10^6/uL (4.0-5.20); White Blood Cell 10.2 10^3/uL (4.4-10.8)
[2024-07-28 16:35] LABS: Red Cell Distribution Width 27.6 % (11.8-14.3)
[2024-07-29] VITALS (108 sets, daily range): BP systolic 22–176; BP diastolic 12–107; PULSE 65–93; RESP 12–22; TEMP 97.9–99.3; O2SAT 97–100
[2024-07-29 07:59] LABS: Base Excess 16.6 mmol/L (-2.0-3.0)
[2024-07-29 09:06] LABS: Basophils # (auto) 0 10 ^3/uL (0-0.2); Basophils % (auto) 0.1 % (0.0-2.0); Eosinophils # (auto) 0 10 ^3/uL (0-0.8); Eosinophils % (auto) 0.1 % (0.0-7.0); Lymphocytes # (auto) 0.2 10 ^3/uL (0.4-5.4); Monocytes # (auto) 0.4 10 ^3/uL (0-1.3)
[2024-07-29 09:08] LABS: Hematocrit 35.4 % (36.0-46.0); Hemoglobin 11.8 g/dL (12.2-16.2); Lymphocytes % (auto) 1.7 % (10.0-50.0); Mean Corpuscular Hemoglobin 30.8 pg (28.0-32.0); Mean Corpuscular Hgb Conc. 33.3 g/dL (32.0-36.0); Mean Corpuscular Volume 92.6 fL (80.0-100.0); Monocytes % (auto) 4.2 % (0.0-12.0); Neutrophils # (auto) 9.4 10 ^3/uL (1.6-8.6); Neutrophils % (auto) 93.9 % (37.0-80.0); Nucleated Red Blood Cells % 0.1 %; Platelet Count (auto) 60 10^3/uL (140-450); Red Blood Cells 3.83 10^6/uL (4.0-5.20)
[2024-07-29 09:16] LABS: Alanine Aminotransferase 34 U/L (7-40); Albumin 2.8 g/dL (3.2-4.8); Alkaline Phosphatase 68 U/L (46-116); Aspartate Aminotransferase 34 U/L (13-40); BUN/Creatinine Ratio 34.1 (10.0-20.0); Blood Urea Nitrogen 14 mg/dL (9-23); Calcium 8.3 mg/dL (8.7-10.4); Chloride 103 mmol/L (98-107); Glucose 89 mg/dL (74-106); Sodium 149 mmol/L (136-145)
[2024-07-29 09:17] LABS: Bilirubin, Total 2.6 mg/dL (0.2-1.0); Total Protein 5.3 g/dL (5.7-8.2)
[2024-07-29 09:21] LABS: Anion Gap 5.99999 (5-15)
[2024-07-29 09:22] LABS: Carbon Dioxide > 40 mmol/L (20-31); Potassium 2.3 mmol/L (3.5-5.1)
[2024-07-29] MEDS: POTASSIUM CHL 20MEQ/100ML 100 ML IV SCH (10:11)
[2024-07-29] MEDS: POTASSIUM CHL 20 Meq TABLET PO ONE (10:21)
[2024-07-29] MEDS ORDERED: POTASSIUM CHL 20MEQ/100ML 100 ML IV SCH (11:00)
[2024-07-29 14:28] LABS: COVID19 ANTIGEN SOFIA FIA NEGATIVE (NEGATIVE)
[2024-07-29] MEDS: acetaZOLAMIDE SODIUM 500 MG VL IV ONE (19:28)
[2024-07-30] VITALS (55 sets, daily range): BP systolic 29–131; BP diastolic 14–60; PULSE 67–98; RESP 12–22; TEMP 98.1–99.5; O2SAT 97–100
[2024-07-30 04:31] LABS: Basophils # (auto) 0 10 ^3/uL (0-0.2); Basophils % (auto) 0.3 % (0.0-2.0); Eosinophils # (auto) 0 10 ^3/uL (0-0.8); Hematocrit 35.1 % (36.0-46.0); Hemoglobin 11.5 g/dL (12.2-16.2); Lymphocytes # (auto) 0.1 10 ^3/uL (0.4-5.4); Lymphocytes % (auto) 1.4 % (10.0-50.0); Mean Corpuscular Hemoglobin 30.7 pg (28.0-32.0); Mean Corpuscular Hgb Conc. 32.7 g/dL (32.0-36.0); Mean Corpuscular Volume 93.6 fL (80.0-100.0); Monocytes # (auto) 0.4 10 ^3/uL (0-1.3); Monocytes % (auto) 4.1 % (0.0-12.0); Neutrophils # (auto) 9.6 10 ^3/uL (1.6-8.6); Neutrophils % (auto) 94.2 % (37.0-80.0); Platelet Count (auto) 70 10^3/uL (140-450); Red Blood Cells 3.75 10^6/uL (4.0-5.20); White Blood Cell 10.2 10^3/uL (4.4-10.8)
[2024-07-30 04:43] LABS: Red Cell Distribution Width 27.5 % (11.8-14.3)
[2024-07-30 04:45] LABS: Alanine Aminotransferase 32 U/L (7-40); Alkaline Phosphatase 71 U/L (46-116); Anion Gap 4 (5-15); BUN/Creatinine Ratio 28.6 (10.0-20.0); Blood Urea Nitrogen 14 mg/dL (9-23); Calcium 8.6 mg/dL (8.7-10.4); Carbon Dioxide 36 mmol/L (20-31); Chloride 105 mmol/L (98-107); Glucose 118 mg/dL (74-106); Sodium 145 mmol/L (136-145)
[2024-07-30 04:46] LABS: Aspartate Aminotransferase 37 U/L (13-40); Bilirubin, Total 2.3 mg/dL (0.2-1.0); Total Protein 5.4 g/dL (5.7-8.2)
[2024-07-30 04:58] LABS: Potassium 2.6 mmol/L (3.5-5.1)
[2024-07-30 05:21] LABS: Albumin 2.9 g/dL (3.2-4.8)
[2024-07-30] MEDS: POTASSIUM CHL 20MEQ/100ML 100 ML IV ONE (06:41)
[2024-07-30 06:45] LABS: Base Excess 6.3 mmol/L (-2.0-3.0)
[2024-07-30] MEDS: POTASSIUM CHL 20MEQ/100ML 100 ML IV SCH ×2 (09:00→17:26)
[2024-07-30 09:07] LABS: Platelet Estimate Decreased
[2024-07-30 09:08] LABS: Anisocytosis Moderate; Stomatocytes Moderate
[2024-07-30] MEDS ORDERED: POTASSIUM CHL 20MEQ/100ML 100 ML IV SCH (16:30)
[2024-07-30] MEDS: FREE WATER GT SCH (18:00)
[2024-07-31] VITALS (42 sets, daily range): BP systolic 25–137; BP diastolic 14–65; PULSE 71–88; RESP 14–30; TEMP 98.1–99.3; O2SAT 82–100
[2024-07-31 04:07] LABS: Basophils # (auto) 0 10 ^3/uL (0-0.2); Eosinophils # (auto) 0 10 ^3/uL (0-0.8); Eosinophils % (auto) 0.3 % (0.0-7.0); Hematocrit 35.2 % (36.0-46.0); Hemoglobin 11.6 g/dL (12.2-16.2); Lymphocytes # (auto) 0.2 10 ^3/uL (0.4-5.4); Lymphocytes % (auto) 2.7 % (10.0-50.0); Mean Corpuscular Hemoglobin 30.8 pg (28.0-32.0); Mean Corpuscular Volume 93.1 fL (80.0-100.0); Monocytes # (auto) 0.3 10 ^3/uL (0-1.3); Monocytes % (auto) 3.9 % (0.0-12.0); Neutrophils % (auto) 93.1 % (37.0-80.0); Nucleated Red Blood Cells % 0.1 %; Platelet Count (auto) 65 10^3/uL (140-450); Red Blood Cells 3.78 10^6/uL (4.0-5.20); White Blood Cell 7.5 10^3/uL (4.4-10.8)
[2024-07-31 04:09] LABS: Red Cell Distribution Width 27.7 % (11.8-14.3)
[2024-07-31 04:11] LABS: Chloride 109 mmol/L (98-107); Potassium 3.4 mmol/L (3.5-5.1); Sodium 145 mmol/L (136-145)
[2024-07-31 04:12] LABS: Anion Gap 6 (5-15); Carbon Dioxide 30 mmol/L (20-31)
[2024-07-31 04:13] LABS: Calcium 8.6 mg/dL (8.7-10.4)
[2024-07-31 04:17] LABS: Glucose 98 mg/dL (74-106)
[2024-07-31 04:18] LABS: BUN/Creatinine Ratio 27.3 (10.0-20.0); Blood Urea Nitrogen 12 mg/dL (9-23); Magnesium 2.3 mg/dL (1.6-2.6)
[2024-07-31] MEDS ORDERED: POTASSIUM CHL 20MEQ/100ML 100 ML IV SCH ×2 (09:00→13:30)
[2024-07-31] MEDS: POTASSIUM CHL 20MEQ/100ML 100 ML IV SCH ×2 (09:38→14:50)
[2024-07-31] MEDS ORDERED: SODIUM CHLORIDE 0.9% 1,000 ML IV SCH (13:30)
[2024-07-31] MEDS: BUMETANIDE 2.5mg/10ml (0.25 mg/ml) INJ IV ONE (14:00)
[2024-07-31 15:24] LABS: Base Excess 4.6 mmol/L (-2.0-3.0)
[2024-07-31] MEDS: SPIRONOLACTONE 25 MG TAB PO SCH (18:37)
[2024-08-01] VITALS (88 sets, daily range): BP systolic 91–129; BP diastolic 42–70; PULSE 71–93; RESP 12–37; TEMP 97–99.3; O2SAT 96–100
[2024-08-01 04:24] LABS: Basophils # (auto) 0.1 10 ^3/uL (0-0.2); Basophils % (auto) 0.8 % (0.0-2.0); Eosinophils # (auto) 0.1 10 ^3/uL (0-0.8); Eosinophils % (auto) 0.9 % (0.0-7.0); Hematocrit 32.7 % (36.0-46.0); Hemoglobin 10.8 g/dL (12.2-16.2); Lymphocytes # (auto) 0.3 10 ^3/uL (0.4-5.4); Lymphocytes % (auto) 3.6 % (10.0-50.0); Mean Corpuscular Hemoglobin 30.5 pg (28.0-32.0); Mean Corpuscular Hgb Conc. 33.1 g/dL (32.0-36.0); Monocytes # (auto) 0.3 10 ^3/uL (0-1.3); Monocytes % (auto) 3.7 % (0.0-12.0); Neutrophils # (auto) 6.8 10 ^3/uL (1.6-8.6); Platelet Count (auto) 65 10^3/uL (140-450); Red Blood Cells 3.55 10^6/uL (4.0-5.20); White Blood Cell 7.4 10^3/uL (4.4-10.8)
[2024-08-01 04:31] LABS: Red Cell Distribution Width 27.3 % (11.8-14.3)
[2024-08-01 04:35] LABS: Anion Gap 6 (5-15); Carbon Dioxide 30 mmol/L (20-31); Chloride 102 mmol/L (98-107); Potassium 2.7 mmol/L (3.5-5.1); Sodium 138 mmol/L (136-145)
[2024-08-01 04:36] LABS: Calcium 8.1 mg/dL (8.7-10.4)
[2024-08-01 04:41] LABS: BUN/Creatinine Ratio 25.5 (10.0-20.0); Blood Urea Nitrogen 12 mg/dL (9-23); Glucose 215 mg/dL (74-106)
[2024-08-01] MEDS: POTASSIUM CHL 20MEQ/100ML 100 ML IV SCH ×2 (05:44→12:02)
[2024-08-01 09:28] LABS: Base Excess 4.7 mmol/L (-2.0-3.0)
[2024-08-01] MEDS: TEMAZEPAM 15 MG CAP PO PRN (22:37)
[2024-08-02] VITALS (86 sets, daily range): BP systolic 103–134; BP diastolic 44–71; PULSE 70–89; RESP 11–36; TEMP 97.2–99.7; O2SAT 72–100
[2024-08-02 04:31] LABS: Basophils # (auto) 0 10 ^3/uL (0-0.2); Basophils % (auto) 0.7 % (0.0-2.0); Eosinophils # (auto) 0.1 10 ^3/uL (0-0.8); Eosinophils % (auto) 1.5 % (0.0-7.0); Hematocrit 32.6 % (36.0-46.0); Hemoglobin 10.9 g/dL (12.2-16.2); Lymphocytes # (auto) 0.4 10 ^3/uL (0.4-5.4); Lymphocytes % (auto) 7.8 % (10.0-50.0); Mean Corpuscular Hemoglobin 30.6 pg (28.0-32.0); Mean Corpuscular Hgb Conc. 33.5 g/dL (32.0-36.0); Mean Corpuscular Volume 91.5 fL (80.0-100.0); Monocytes # (auto) 0.2 10 ^3/uL (0-1.3); Monocytes % (auto) 4.3 % (0.0-12.0); Neutrophils # (auto) 4.9 10 ^3/uL (1.6-8.6); Neutrophils % (auto) 85.7 % (37.0-80.0); Platelet Count (auto) 71 10^3/uL (140-450); Red Blood Cells 3.56 10^6/uL (4.0-5.20); White Blood Cell 5.7 10^3/uL (4.4-10.8)
[2024-08-02 04:47] LABS: Red Cell Distribution Width 27.8 % (11.8-14.3)
[2024-08-02 04:52] LABS: Alanine Aminotransferase 47 U/L (7-40); Albumin 3.2 g/dL (3.2-4.8); Alkaline Phosphatase 98 U/L (46-116); Anion Gap 8 (5-15); Aspartate Aminotransferase 47 U/L (13-40); BUN/Creatinine Ratio 18.4 (10.0-20.0); Blood Urea Nitrogen 9 mg/dL (9-23); Calcium 8.5 mg/dL (8.7-10.4); Carbon Dioxide 28 mmol/L (20-31); Chloride 103 mmol/L (98-107); Glucose 99 mg/dL (74-106); Magnesium 2.1 mg/dL (1.6-2.6); Potassium 3.4 mmol/L (3.5-5.1); Sodium 139 mmol/L (136-145); Total Protein 5.9 g/dL (5.7-8.2)
[2024-08-02] MEDS: POTASSIUM CHL 20MEQ/100ML 100 ML IV SCH (10:54)
[2024-08-02] MEDS: PIPERACILLIN-TAZO 4.5GM 100 ML IV ONE (15:30)
[2024-08-02] MEDS ORDERED: PIPERACILLIN-TAZO 4.5GM 100 ML IV SCH (22:00)
== END 2024-08-02 21:10 | disposition short-term general hospital (02) | DRG 207 ==
LOC: EDBD 21:48 → ER 21:48 → TELE 07-06 03:51 → ICU WEST 07-07 09:33
PROVIDERS: ADMIT Internal Medicine; ATTEND Internal Medicine
PROC: 02HV33Z Insertion of Infusion Device into Superior Vena Cava, Percutaneous Approach (ICD-10-PCS; 2024-07-07)
PROC: B548ZZA Ultrasonography of Superior Vena Cava, Guidance (ICD-10-PCS; 2024-07-07)
PROC: 5A1955Z Respiratory Ventilation, Greater than 96 Consecutive Hours (ICD-10-PCS; principal; 2024-07-13)
PROC: 0BH17EZ Insertion of Endotracheal Airway into Trachea, Via Natural or Artificial Opening (ICD-10-PCS; 2024-07-13)
PROC: 5A09357 Assistance with Respiratory Ventilation, Less than 24 Consecutive Hours, Continuous Positive Airway Pressure (ICD-10-PCS; 2024-07-13)
PROC: XW033E5 Introduction of Remdesivir Anti-infective into Peripheral Vein, Percutaneous Approach, New Technology Group 5 (ICD-10-PCS; 2024-07-18)
PROC: 4A023N6 Measurement of Cardiac Sampling and Pressure, Right Heart, Percutaneous Approach (ICD-10-PCS; 2024-07-26)
PROC: 3E083KZ Introduction of Other Diagnostic Substance into Heart, Percutaneous Approach (ICD-10-PCS; 2024-07-26)
PROC: 05H933Z Insertion of Infusion Device into Right Brachial Vein, Percutaneous Approach (ICD-10-PCS; 2024-07-30)
PROC: B54MZZA Ultrasonography of Right Upper Extremity Veins, Guidance (ICD-10-PCS; 2024-07-30)
PROC: 5A09357 Assistance with Respiratory Ventilation, Less than 24 Consecutive Hours, Continuous Positive Airway Pressure (ICD-10-PCS; 2024-07-31)
PROC: 5A09357 Assistance with Respiratory Ventilation, Less than 24 Consecutive Hours, Continuous Positive Airway Pressure (ICD-10-PCS; 2024-08-01)
DX: J96.01 Acute respiratory failure with hypoxia (principal); I21.A1 Myocardial infarction type 2; I50.43 Acute on chronic combined systolic (congestive) and diastolic (congestive) heart failure; N17.0 Acute kidney failure with tubular necrosis; R65.21 Severe sepsis with septic shock; J12.82 Pneumonia due to coronavirus disease 2019; U07.1 COVID-19; A41.89 Other specified sepsis; I13.0 Hypertensive heart and chronic kidney disease with heart failure and stage 1 through stage 4 chronic kidney disease, or unspecified chronic kidney disease; R64 Cachexia; E87.1 Hypo-osmolality and hyponatremia; I42.0 Dilated cardiomyopathy; J98.11 Atelectasis; E87.0 Hyperosmolality and hypernatremia; E87.3 Alkalosis; I31.39 Other pericardial effusion (noninflammatory); E87.6 Hypokalemia; Z20.822 Contact with and (suspected) exposure to COVID-19; D64.9 Anemia, unspecified; N18.32 Chronic kidney disease, stage 3b; D69.6 Thrombocytopenia, unspecified; E03.9 Hypothyroidism, unspecified; F17.200 Nicotine dependence, unspecified, uncomplicated; I08.1 Rheumatic disorders of both mitral and tricuspid valves; E61.1 Iron deficiency; F32.A Depression, unspecified; F41.9 Anxiety disorder, unspecified; K72.90 Hepatic failure, unspecified without coma; K76.1 Chronic passive congestion of liver; Z82.49 Family history of ischemic heart disease and other diseases of the circulatory system; Z86.73 Personal history of transient ischemic attack (TIA), and cerebral infarction without residual deficits; Z95.810 Presence of automatic (implantable) cardiac defibrillator; Z83.3 Family history of diabetes mellitus; Z80.9 Family history of malignant neoplasm, unspecified; Z68.22 Body mass index [BMI] 22.0-22.9, adult
CPT/HCPCS: 36415; 36569; 36600; 71045; 71250; 76604; 76775; 80048; 80053; 80162; 81001; 82570; 82728; 82805; 82962; 83540; 83550; 83605; 83735; 83880; 83935; 84100; 84132; 84300; 84443; 84484; 85007; 85025; 85027; 85379; 85610; 85652; 85730; 86141; 87040; 87070; 87081; 87086; 87205; 87278; 87426; 87804; 93005; 93306; 94002; 94003; 94640; 94660; 99152; 99291; G0378; J1100; J1756; J2405; J2470; J2543; J3480; J3490; J7060; Q9967

== ENCOUNTER 2024-08-30 16:05 | Inpatient (IN) | payer MEDICARE, MEDICAID ==
[~2024-08-30] VITALS: Ht 162.6 cm; Wt 51.6 kg
[~2024-08-30 16:05] MED LIST changes: -CYAN500T3 PO; -DIGO1TAB48 PO; -ERGO1CAP23 PO; -FURO1TAB33 PO; +LORA-1121 PO; -LORA-1123 PO; -POTA-36 PO; -SPIR25TA PO; -TEMA30CA PO
[2024-08-31] VITALS (9 sets, daily range): BP systolic 103–115; BP diastolic 54–62; PULSE 64–71; RESP 16–20; TEMP 97.5–98.6; O2SAT 92–98
--- NOTE | 2024-08-31 09:11 | DVHPNRES ---
Progress Note Objective vital signs Vital Sign Date Time Temp Pulse Resp B/P (MAP) Pulse Ox O2 Delivery O2 Flow Rate FiO2 08/31/24 08:44 98.2 70 18 103/54 (70) 97 98.2 08/31/24 00:38 Nasal Cannula* 1 24 Total Intake and Output 08/30/24 08/30/24 08/31/24 15:00 23:00 07:00 Intake Total 230 ml Balance 230 ml Problem List/Assessment/Plan Problem List/Assessment/Plan Patient: ELEAZAR DICKENS Acct: [id number] : 1960 Loc: [facility] Age/Sex: 64/F [id number] Progress Note - Dictate Date Seen: Aug 31, 2024 Medical Necessity Reason Pt with a Central, PICC or Fol: Yes The following are medically ne: Carrillo Catheter Subjective HFrEF ACUTE DILATED CM S/P AICD HTN NOW WITH MARKED ELEVATED BNP ACUTE HFrEF DCM EF <20% cachexia/ anorexia NORMAL CORONARIES EF <20% S/P MITRAL VALVE CLIP BILATERAL PLEURAL EFFUSION HX OF THORACENTESIS NOW WITH ACUTE DECOMPENSATION NO CLINICAL OR RADIOGRAPHIC EVIDENCE FOR PNEUMONIA INCREASE SYNTHROID TO 200 CORRECT HYPOKALEMIA PT ADMITTED TO [facility] FOR HEART TRANSPLANT CURRENTLY NOT A CANDIDATE BECAUSE OF CACHEXIA S/P G TUBE PLACEMENT FOR NUTRITIONAL SUPPORT ONCE PT HAS ADEQUATE IMPROVEMENT IN NUTRITIONAL STATUS AND STRENGTH PT CAN BE BECOME ELIBILE FOR HEART TRANSPLANT vital signs Vital Sign Date Time Temp Pulse Resp B/P (MAP) Pulse Ox O2 Delivery O2 Flow Rate FiO2 08/31/24 08:44 98.2 70 18 103/54 (70) 97 98.2 08/31/24 08:00 Room Air* 0 21 Total Intake and Output 08/30/24 08/30/24 08/31/24 15:00 23:00 07:00 Intake Total 230 ml Balance 230 ml medications Current Medications Medications Dose Ordered Sig/Tucker Route Start Time Stop Time Status Last Admin Dose Admin Nitroglycerin 0.4 mg Q5MINP PRN SL 08/31/24 11:45 Morphine Sulfate 2 mg Q30M PRN IV 08/31/24 11:45 laboratory and microbiology Laboratory Tests 08/31/24 11:25 Test 08/31/24 11:25 Range/Units Serum Glucose 81 74-106 mg/dL Problem List HFrEF ACUTE DILATED CM S/P AICD HTN NOW WITH MARKED ELEVATED BNP ACUTE HFrEF DCM EF <20% cachexia/ anorexia NORMAL CORONARIES EF <20% S/P MITRAL VALVE CLIP BILATERAL PLEURAL EFFUSION HX OF THORACENTESIS NOW WITH ACUTE DECOMPENSATION NO CLINICAL OR RADIOGRAPHIC EVIDENCE FOR PNEUMONIA INCREASE SYNTHROID TO 200 CORRECT HYPOKALEMIA PT ADMITTED TO [facility] FOR HEART TRANSPLANT CURRENTLY NOT A CANDIDATE BECAUSE OF CACHEXIA S/P G TUBE PLACEMENT FOR NUTRITIONAL SUPPORT ONCE PT HAS ADEQUATE IMPROVEMENT IN NUTRITIONAL STATUS AND STRENGTH PT CAN BE BECOME ELIBILE FOR HEART TRANSPLANT Assessment/Plan TITRATE ON MEDS PT INCREASE NUTRITIONAL SUPPLEMENT Dietary Evaluation Review Comments: 1) Provide PO 2gNa diet texture as tolerated to meet 75% of her needs, 2) If PO feeding is not an option, offer EN feeding when GI is acceptable, offer Javity 1.2 with Fiber @35ml/hr, if pt has no glucose tolerance issue; increase flow rate as tolerated for added energy and protein support. 3) Offer Glucerna @50ml/hr if pt has poor glucose tolerance. 4)Consider TPN if pt is NPO > 7days. Expected Outcomes/Goals: Gradual weight gain. Improved well-being. Plan discussed with: Patient KALLIE GLASGOW MD Aug 31, 2024 13:29 E/M VISIT PERFORMED BY: TRANSCRIBED BY: TRANSCRIBED DATE/TIME:08/31/24 1329 ELECTRONICALLY SIGNED BY: ELECTRONICALLY CO-SIGNED BY: Labs/Diagnostic Data Laboratory Tests Test 08/31/24 11:25 Range/Units White Blood Count 4.4 4.4-10.8 10^3/uL Red Blood Count 2.93 L 4.0-5.20 10^6/uL Hemoglobin 9.3 L 12.2-16.2 g/dL Hematocrit 29.1 L 36.0-46.0 % Mean Corpuscular Volume 99.4 80.0-100.0 fL Mean Corpuscular Hemoglobin 31.6 28.0-32.0 pg Mean Corpuscular Hemoglobin Concent 31.8 L 32.0-36.0 g/dL Red Cell Distribution Width 23.9 H 11.8-14.3 % Platelet Count 50 L 140-450 10^3/uL Mean Platelet Volume 9.1 6.9-10.8 fL Neutrophils (%) (Auto) 81.5 H 37.0-80.0 % Lymphocytes (%) (Auto) 8.7 L 10.0-50.0 % Monocytes (%) (Auto) 8.9 0.0-12.0 % Eosinophils (%) (Auto) 0.5 0.0-7.0 % Basophils (%) (Auto) 0.4 0.0-2.0 % Neutrophils # (Auto) 3.6 1.6-8.6 10 ^3/uL Lymphocytes # (Auto) 0.4 0.4-5.4 10 ^3/uL Monocytes # (Auto) 0.4 0-1.3 10 ^3/uL Eosinophils # (Auto) 0 0-0.8 10 ^3/uL Basophils # (Auto) 0 0-0.2 10 ^3/uL Nucleated Red Blood Cells 0.1 % Platelet Estimate Decreased Clumped Platelets None Giant Platelets Few Sodium Level 139 136-145 mmol/L Potassium Level 4.2 3.5-5.1 mmol/L Chloride Level 101 98-107 mmol/L Carbon Dioxide Level 32 H 20-31 mmol/L Anion Gap 6 5-15 Blood Urea Nitrogen 14 9-23 mg/dL Creatinine 0.32 L 0.550-1.02 mg/dL Glomerular Filtration Rate Calc 117 >90 mL/min BUN/Creatinine Ratio 43.8 H 10.0-20.0 Serum Glucose 81 74-106 mg/dL Calcium Level 8.6 L 8.7-10.4 mg/dL Magnesium Level 1.8 1.6-2.6 mg/dL Total Bilirubin 0.5 0.2-1.0 mg/dL Aspartate Amino Transferase (AST) 32 13-40 U/L Alanine Aminotransferase (ALT) 16 7-40 U/L Alkaline Phosphatase 88 46-116 U/L Lactate Dehydrogenase 321 H 120-246 U/L Troponin I High Sensitivity 38 *H </=34 ng/L B-Type Natriuretic Peptide 2287.49 0-100 pg/mL Total Protein 5.2 L 5.7-8.2 g/dL Albumin 2.9 L 3.2-4.8 g/dL Vitamin D 25-Hydroxy 47.4 30.0-100 ng/mL Thyroid Stimulating Hormone (TSH) 7.80 H 0.55-4.78 uIU/mL Digoxin Level < 0.14 L 0.8-2 ng/mL Microbiology Date/Time Source Procedure Growth Status 08/31/24 03:35 Nose MRSA Screen - Final Complete JANETSHARAN RESIDENT Aug 31, 2024 09:11
[2024-08-31] MEDS ORDERED: MORPHINE SULFATE INJ 2 MG/ml SYRG IV PRN (11:45)
[2024-08-31] MEDS ORDERED: NITROGLYCERIN 0.4 MG SL TAB SL PRN (11:45)
[2024-08-31 12:29] LABS: Basophils # (auto) 0 10 ^3/uL (0-0.2); Eosinophils # (auto) 0 10 ^3/uL (0-0.8); Lymphocytes # (auto) 0.4 10 ^3/uL (0.4-5.4); Nucleated Red Blood Cells % 0.1 %
[2024-08-31 12:33] LABS: Basophils % (auto) 0.4 % (0.0-2.0); Eosinophils % (auto) 0.5 % (0.0-7.0); Hematocrit 29.1 % (36.0-46.0); Hemoglobin 9.3 g/dL (12.2-16.2); Lymphocytes % (auto) 8.7 % (10.0-50.0); Mean Corpuscular Hemoglobin 31.6 pg (28.0-32.0); Mean Corpuscular Hgb Conc. 31.8 g/dL (32.0-36.0); Mean Corpuscular Volume 99.4 fL (80.0-100.0); Monocytes # (auto) 0.4 10 ^3/uL (0-1.3); Monocytes % (auto) 8.9 % (0.0-12.0); Neutrophils # (auto) 3.6 10 ^3/uL (1.6-8.6); Neutrophils % (auto) 81.5 % (37.0-80.0); Platelet Count (auto) 50 10^3/uL (140-450); Red Blood Cells 2.93 10^6/uL (4.0-5.20); White Blood Cell 4.4 10^3/uL (4.4-10.8)
[2024-08-31 12:34] LABS: Red Cell Distribution Width 23.9 % (11.8-14.3)
[2024-08-31 12:36] LABS: Alanine Aminotransferase 16 U/L (7-40); Albumin 2.9 g/dL (3.2-4.8); Alkaline Phosphatase 88 U/L (46-116); Anion Gap 6 (5-15); Aspartate Aminotransferase 32 U/L (13-40); BUN/Creatinine Ratio 43.8 (10.0-20.0); Blood Urea Nitrogen 14 mg/dL (9-23); Calcium 8.6 mg/dL (8.7-10.4); Carbon Dioxide 32 mmol/L (20-31); Chloride 101 mmol/L (98-107); Glucose 81 mg/dL (74-106); Magnesium 1.8 mg/dL (1.6-2.6); Potassium 4.2 mmol/L (3.5-5.1); Sodium 139 mmol/L (136-145)
[2024-08-31 12:37] LABS: Bilirubin, Total 0.5 mg/dL (0.2-1.0); Total Protein 5.2 g/dL (5.7-8.2)
--- NOTE | 2024-08-31 12:37 | DVH ---
EXAM: XY CHEST PORTABLE Indication:hypoxia Technique: Single frontal view of the chest was obtained Comparison: XY CHEST PORTABLE on DOS: 08/02/24, XY CHEST PORTABLE on DOS: 08/02/24, XY CHEST PORTABLE o n DOS: 08/01/24, XY CHEST PORTABLE on DOS: 07/31/24, XY CHEST PORTABLE on DOS: 07/31/24 FINDINGS: Lines and Tubes: Cardiac pacemaker projects over left chest wall. Lungs: Pulmonary edema. Pleura: Small right pleural effusion. No pneumothorax. Cardiomediastinal contours: Cardiomegaly. Bones: No acute osseous abnormality. IMPRESSION: Cardiomegaly with pulmonary edema and small right pleural effusion.
[2024-08-31 13:06] LABS: Platelet Estimate Decreased
[2024-08-31 13:09] LABS: Giant Platelets Few
--- NOTE | 2024-08-31 13:10 | DVH ---
Bilateral lower extremity venous duplex Clinical History: DVT Comparison: None Technique: Duplex Doppler evaluation of the deep venous systems of both lower extremities from the common femora l veins to the popliteal veins including color Doppler and spectral/pulsed waveform analysis was perf ormed. Findings: RIGHT SIDE: The common femoral vein demonstrates appropriate compressibility and waveform variability. There is compressibility/patency of the great saphenous vein at the proximal thigh. The femoral vein demonstrates appropriate compressibility and waveform variability. The deep femoral vein demonstrates appropriate compressibility and waveform variability. The popliteal vein demonstrates appropriate compressibility and waveform variability. The posterior tibial vein demonstrates incomplete compressibility and absence of flow on Doppler. LEFT SIDE: The common femoral vein demonstrates appropriate compressibility and waveform variability. There is compressibility/patency of the great saphenous vein at the proximal thigh. The femoral vein demonstrates appropriate compressibility and waveform variability. Left SFV is dimin utive, measuring 3 mm in diameter. The deep femoral vein demonstrates appropriate compressibility and waveform variability. The popliteal vein demonstrates appropriate compressibility and waveform variability. There is normal compressibility at the tibioperoneal trunk. Impression: 1. Occlusive thrombus within the right posterior tibial vein. 2. No left femoropopliteal venous thrombosis. 3. Diminutive left SFV. Critical Result: Positive DVT Findings discussed with patient's nurse Radha, at 1:06 p.m. Clifford time, and acknowledged receipt an d understanding of the findings. HS:Y
--- NOTE | 2024-08-31 13:29 | DVHPN2 ---
Progress Note - Dictate Date Seen: Aug 31, 2024 Medical Necessity Reason Pt with a Central, PICC or Fol: Yes The following are medically ne: Carrillo Catheter Subjective HFrEF ACUTE DILATED CM S/P AICD HTN NOW WITH MARKED ELEVATED BNP ACUTE HFrEF DCM EF <20% cachexia/ anorexia NORMAL CORONARIES EF <20% S/P MITRAL VALVE CLIP BILATERAL PLEURAL EFFUSION HX OF THORACENTESIS NOW WITH ACUTE DECOMPENSATION NO CLINICAL OR RADIOGRAPHIC EVIDENCE FOR PNEUMONIA INCREASE SYNTHROID TO 200 CORRECT HYPOKALEMIA PT ADMITTED TO [facility] FOR HEART TRANSPLANT CURRENTLY NOT A CANDIDATE BECAUSE OF CACHEXIA S/P G TUBE PLACEMENT FOR NUTRITIONAL SUPPORT ONCE PT HAS ADEQUATE IMPROVEMENT IN NUTRITIONAL STATUS AND STRENGTH PT CAN BE BECOME ELIBILE FOR HEART TRANSPLANT vital signs Vital Sign Date Time Temp Pulse Resp B/P (MAP) Pulse Ox O2 Delivery O2 Flow Rate FiO2 08/31/24 08:44 98.2 70 18 103/54 (70) 97 98.2 08/31/24 08:00 Room Air* 0 21 Total Intake and Output 08/30/24 08/30/24 08/31/24 15:00 23:00 07:00 Intake Total 230 ml Balance 230 ml medications Current Medications Medications Dose Ordered Sig/Tucker Route Start Time Stop Time Status Last Admin Dose Admin Nitroglycerin 0.4 mg Q5MINP PRN SL 08/31/24 11:45 Morphine Sulfate 2 mg Q30M PRN IV 08/31/24 11:45 laboratory and microbiology Laboratory Tests 08/31/24 11:25 Test 08/31/24 11:25 Range/Units Serum Glucose 81 74-106 mg/dL Problem List HFrEF ACUTE DILATED CM S/P AICD HTN NOW WITH MARKED ELEVATED BNP ACUTE HFrEF DCM EF <20% cachexia/ anorexia NORMAL CORONARIES EF <20% S/P MITRAL VALVE CLIP BILATERAL PLEURAL EFFUSION HX OF THORACENTESIS NOW WITH ACUTE DECOMPENSATION NO CLINICAL OR RADIOGRAPHIC EVIDENCE FOR PNEUMONIA INCREASE SYNTHROID TO 200 CORRECT HYPOKALEMIA PT ADMITTED TO [facility] FOR HEART TRANSPLANT CURRENTLY NOT A CANDIDATE BECAUSE OF CACHEXIA S/P G TUBE PLACEMENT FOR NUTRITIONAL SUPPORT ONCE PT HAS ADEQUATE IMPROVEMENT IN NUTRITIONAL STATUS AND STRENGTH PT CAN BE BECOME ELIBILE FOR HEART TRANSPLANT Assessment/Plan TITRATE ON MEDS PT INCREASE NUTRITIONAL SUPPLEMENT Dietary Evaluation Review Comments: 1) Provide PO 2gNa diet texture as tolerated to meet 75% of her needs, 2) If PO feeding is not an option, offer EN feeding when GI is acceptable, offer Javity 1.2 with Fiber @35ml/hr, if pt has no glucose tolerance issue; increase flow rate as tolerated for added energy and protein support. 3) Offer Glucerna @50ml/hr if pt has poor glucose tolerance. 4)Consider TPN if pt is NPO > 7days. Expected Outcomes/Goals: Gradual weight gain. Improved well-being. Plan discussed with: Patient KALLIE GLASGOW MD Aug 31, 2024 13:29
[2024-08-31] MEDS: FUROSEMIDE 20 MG/2 ML VIAL IV ONE (14:22)
[2024-08-31] MEDS ORDERED: APIXABAN 5 MG TAB PO SCH (15:18)
[2024-08-31 15:49] LABS: Free T4 (Free Thyroxine) 1.18 ng/dL (0.89-1.76)
[2024-08-31 15:50] LABS: Free T3 1.07 pg/mL (2.3-4.2)
[2024-08-31] MEDS: APIXABAN 2.5 MG TAB PO SCH (17:27)
[2024-08-31] MEDS: Ensure HIGH Protein Chocolate 8oz Bottle PO SCH (18:00)
--- NOTE | 2024-08-31 19:18 | DVHHPRES ---
History of Present Illness Resident Creating Document: SHARAN GONZALES RESIDENT Reason for Visit: Bilateral lower limb progressive weakness History of Present Illness Mrs. Garcia 64-year-old female with past medical history significant for heart failure with reduced ejection fraction, 10-20%, mitral regurgitation status post MitraClip, dilated cardiomyopathy, cachexia, anorexia, chronic thrombocytopenia, previous history of cardiogenic shock status post Biotronik AICD placement, is waiting for heart transplant At [facility], Dr. Patterson as primary care and came here with chief complaint of increasing bilateral lower leg weakness for past 5 months which is progressive, worsening to the point that patient is not able to ambulate by herself. Patient lives with and family who helps her to mobilize herself with the help of wheelchair, walker, and other assistive devices. Patient is denies chest pain, shortness of breath, PND, orthopnea, signs of heart failure, dyspnea on exertion. She was admitted earlier few months back with acute hypoxic respiratory failure, developed COVID was on remdesivir and subsequently had a Calliham-Alyssa catheter that showed elevated left ventricular end-diastolic pressure. Cardiovascular: CHF (Cardiovascular history okay to), hyperipidemia (Stenosis), valve insufficiency (Insufficiency) GI: Constipation Hepatobiliary: Cirrhosis Past Medical History heart failure with reduced ejection fraction, 10-20%, mitral regurgitation stat us post MitraClip, dilated cardiomyopathy, cachexia, anorexia, chronic thrombocytopenia, previous history of cardiogenic shock status post Biotronik AICD placement, Past Surgical History: None Family History: None Smoke: No ALCOHOL: heavy (Prior heavy alcohol consumption history over 40 years a pproximately 6 packs. Each day.) Drugs: None Lives: with Family Domestic Violence: Neg Review of Systems Constitutional: Yes: Weakness Cardiovascular: Edema Neurological: Weakness, Incoordination Allergies: Coded Allergies: NO KNOWN ALLERGIES (Unverified , 05/19/21) Medications Current Medications Medications Dose Ordered Sig/Tucker Route Start Time Stop Time Status Last Admin Dose Admin Nitroglycerin 0.4 mg Q5MINP PRN SL 08/31/24 11:45 Morphine Sulfate 2 mg Q30M PRN IV 08/31/24 11:45 Digoxin 0.125 mg DAILY PO 09/01/24 10:00 Ivabradine 5 mg BID PO 08/31/24 22:00 Enteral Nutritional Formula 240 ml QID PO 08/31/24 18:00 Apixaban 2.5 mg DAILY PO 08/31/24 15:21 08/31/24 17:27 2.5 MG Exam Vital Signs Vital Signs Date Time Temp Pulse Resp B/P (MAP) Pulse Ox O2 Delivery O2 Flow Rate FiO2 08/31/24 17:44 98.4 70 20 109/55 (73) 92 98.4 08/31/24 08:00 Room Air* 0 21 General Appearance: Alert, Oriented X3, Cooperative, No acute distress HEENT: Atraumatic, Mucous membr. moist/pink Respiratory: Clear to auscultation, Normal air movement, Other (Basal crackles) Cardiovascular: Regular rate, Normal S1, Normal S2 Abdominal: Normal bowel sounds, Soft, No tenderness, No hepatospenomegaly, No masses Extremities: No clubbing, No cyanosis, Other (Bilateral 2+ pedal edema) Skin: No significant lesion Neuro: Normal tone, Sensation intact, Reflexes 2+ (Bilateral lower leg 1/5 stre ngth), Other Psych/Mental Status: Mental status NL, Mood NL Labs/Xrays Labs Test 08/31/24 18:18 08/31/24 11:25 Range/Units White Blood Count 4.4 4.4-10.8 10^3/uL Red Blood Count 2.93 L 4.0-5.20 10^6/uL Hemoglobin 9.3 L 12.2-16.2 g/dL Hematocrit 29.1 L 36.0-46.0 % Mean Corpuscular Volume 99.4 80.0-100.0 fL Mean Corpuscular Hemoglobin 31.6 28.0-32.0 pg Mean Corpuscular Hemoglobin Concent 31.8 L 32.0-36.0 g/dL Red Cell Distribution Width 23.9 H 11.8-14.3 % Platelet Count 50 L 140-450 10^3/uL Mean Platelet Volume 9.1 6.9-10.8 fL Neutrophils (%) (Auto) 81.5 H 37.0-80.0 % Lymphocytes (%) (Auto) 8.7 L 10.0-50.0 % Monocytes (%) (Auto) 8.9 0.0-12.0 % Eosinophils (%) (Auto) 0.5 0.0-7.0 % Basophils (%) (Auto) 0.4 0.0-2.0 % Neutrophils # (Auto) 3.6 1.6-8.6 10 ^3/uL Lymphocytes # (Auto) 0.4 0.4-5.4 10 ^3/uL Monocytes # (Auto) 0.4 0-1.3 10 ^3/uL Eosinophils # (Auto) 0 0-0.8 10 ^3/uL Basophils # (Auto) 0 0-0.2 10 ^3/uL Nucleated Red Blood Cells 0.1 % Platelet Estimate Decreased Clumped Platelets None Giant Platelets Few Sodium Level 139 136-145 mmol/L Potassium Level 4.2 3.5-5.1 mmol/L Chloride Level 101 98-107 mmol/L Carbon Dioxide Level 32 H 20-31 mmol/L Anion Gap 6 5-15 Blood Urea Nitrogen 14 9-23 mg/dL Creatinine 0.32 L 0.550-1.02 mg/dL Glomerular Filtration Rate Calc 117 >90 mL/min BUN/Creatinine Ratio 43.8 H 10.0-20.0 Serum Glucose 81 74-106 mg/dL Calcium Level 8.6 L 8.7-10.4 mg/dL Magnesium Level 1.8 1.6-2.6 mg/dL Total Bilirubin 0.5 0.2-1.0 mg/dL Aspartate Amino Transferase (AST) 32 13-40 U/L Alanine Aminotransferase (ALT) 16 7-40 U/L Alkaline Phosphatase 88 46-116 U/L Lactate Dehydrogenase 321 H 120-246 U/L B-Type Natriuretic Peptide 2287.49 0-100 pg/mL Total Protein 5.2 L 5.7-8.2 g/dL Albumin 2.9 L 3.2-4.8 g/dL Vitamin D 25-Hydroxy 47.4 30.0-100 ng/mL Thyroid Stimulating Hormone (TSH) 7.80 H 0.55-4.78 uIU/mL Free Thyroxine (T4) Calculated 1.18 0.89-1.76 ng/dL Free Triiodothyronine (T3) pg/mL 1.07 L 2.3-4.2 pg/mL Digoxin Level < 0.14 L 0.8-2 ng/mL Microbiology Date/Time Source Procedure Growth Status 08/31/24 03:35 Nose MRSA Screen - Final Complete Assessment/Plan Assessment/Plan # Occlusive DVT of the right posterior tibial vein: waiting for D-dimer: You have D-dimer more than 500 adjusted for age, we will consider anticoagulation otherwise continue careful watch with repeat we are to found for close monitoring. All the patient had high-risk of transmitting the DVT to proximal side and eventually Dislodged. As per Cardiology patient has been started on Eliquis 2.5mg daily. # Type 2 NSTEMI: patient denies any chest pain, mild elevation of troponin 37, keep the patient on telemetry, electrolyte to monitor and correct. No EKG changes. Cardiology on board. # severe acute on chronic Thrombocytopenia: [place] [address] platelet count. Daily monitoring, avoid heparin / low molecular weight heparin, aspirin, antiplatelet drugs. # Pulmonary edema: small right pleural effusion: Continue IV Lasix, daily weight, salt restriction, fluid restriction. # Mild hypotension: Blood pressure on the softer side 109/55 likely due to chronic heart failure. # Severe deconditioning: with progressive weakness of bilateral lower limb: Physical therapy consulted. Physical therapy t.i.d. extensive physical therapy gait to improve muscle strength and balance. # Normochromic normocytic anemia: denies any bleeding. Close monitoring we will continue with daily CBC. # Moderate to severe malnutrition: with BMI of 17.3: Likely due to cachexia, end-stage heart failure, Dietary consult done, continue nutritional supplement ensure t.i.d.. # heart failure with reduced ejection fraction 10-20% EF: At home patient is on GDM T as well as digoxin, for the treatment of heparin along with Lasix oral. Continue Lasix IV 20 daily. 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 Dr. Patterson and Dr. Grove. Barriers to discharge: clinical workup ongoing, medical treatment on going, PT pending, at clinical progression we will involve sw for further advanced discharge planning. Case discussed with Dr. Haywood. Code status: Full code. Complex patient care discussion needed total 41 minutes. Plan discussed with: Patient, Other (Primary team, RN.) My Orders Orders - SHARAN GONZALES RESIDENT Procedure Category Date Status Time Covid19 Antigen [facility] LAB 08/31/24 Logged Rapid Influenza A&B LAB 08/31/24 Logged 10:27 Urinalysis LAB 08/31/24 Logged 10:27 Drug Screen LAB 08/31/24 Logged 10:27 Chest Portable XY 08/31/24 Resulted 10:29 Cardiac DIET 09/01/24 Transmitted Diet-2gna,Lofat,Lochol Dinner * Cardiology Consult CONS 08/31/24 Transmitted 10:29 Troponin-I Hs LAB 08/31/24 In Process 13:32 Electrocardigram EKG 08/31/24 Logged 10:32 Intake And Output ANGLE 08/31/24 In Process 10:33 Obtain Daily Weight ANGLE 08/31/24 In Process 10:33 Maintain Fluid [facility] 08/31/24 In Process Restrictions 10:33 Bilat Lower Dvt US 08/31/24 Resulted 11:39 Admit ADMIT 08/31/24 Transmitted 11:40 Oxygen By Nasal RT 08/31/24 Transmitted Cannula 11:40 Nitroglycerin PHA 08/31/24 In Process Sublingual (Ntrostat 11:45 Morphine Sulfate PHA 08/31/24 In Process Injection 11:45 Stat Ekg For Chest [facility] 08/31/24 In Process Pain 11:40 Notify Of Changes [facility] 08/31/24 In Process From Base 11:40 Electronic Sensing Equipment Assembler For [facility] 08/31/24 In Process 24 Hours 11:40 Emergency Dysrhythmia [facility] 08/31/24 In Process Protocol 11:40 Rhythm Strips Once [facility] 08/31/24 In Process Every Shift 11:40 Cleanse Wound With [facility] 08/31/24 In Process Wound Clean 10:28 Fibrin Degredation LAB 08/31/24 In Process Products 14:43 Pt Request For Service PT 08/31/24 Logged 18:30 Complete Blood Count LAB 09/01/24 Verified 04:00 Basic Metabolic Panel LAB 09/01/24 Verified 04:00 Date of Service: Aug 31, 2024 Billing Provider: NOREEN HAYWOOD MD Common Visit Codes: [id number] INP/OBS CARE (HIGH) Secondary Visit Codes: [id number] CARE PLAN 30 MINUTES SHARAN GONZALES RESIDENT Aug 31, 2024 19:18 NOREEN HAYWOOD MD Sep 01, 2024 12:45
[2024-08-31] MEDS: IVABRADINE 5 MG TAB PO SCH (21:33)
[2024-09-01] VITALS (9 sets, daily range): BP systolic 94–124; BP diastolic 54–70; PULSE 68–70; RESP 14–20; TEMP 97.5–98; O2SAT 92–98
[2024-09-01 05:53] LABS: Basophils # (auto) 0.1 10 ^3/uL (0-0.2); Basophils % (auto) 2.1 % (0.0-2.0); Eosinophils # (auto) 0 10 ^3/uL (0-0.8); Eosinophils % (auto) 0.8 % (0.0-7.0); Hematocrit 28.8 % (36.0-46.0); Hemoglobin 9.2 g/dL (12.2-16.2); Lymphocytes # (auto) 0.4 10 ^3/uL (0.4-5.4); Lymphocytes % (auto) 10.6 % (10.0-50.0); Mean Corpuscular Hemoglobin 31.7 pg (28.0-32.0); Mean Corpuscular Volume 98.8 fL (80.0-100.0); Monocytes # (auto) 0.5 10 ^3/uL (0-1.3); Monocytes % (auto) 14.2 % (0.0-12.0); Neutrophils # (auto) 2.8 10 ^3/uL (1.6-8.6); Neutrophils % (auto) 72.3 % (37.0-80.0); Nucleated Red Blood Cells % 0.1 %; Platelet Count (auto) 150 10^3/uL (140-450); Red Blood Cells 2.92 10^6/uL (4.0-5.20); Red Cell Distribution Width 23.3 % (11.8-14.3); White Blood Cell 3.9 10^3/uL (4.4-10.8)
[2024-09-01 06:12] LABS: Albumin 2.6 g/dL (3.2-4.8); Alkaline Phosphatase 75 U/L (46-116); Anion Gap 7 (5-15); Aspartate Aminotransferase 12 U/L (13-40); BUN/Creatinine Ratio 30.3 (10.0-20.0); Bilirubin, Total 0.4 mg/dL (0.2-1.0); Blood Urea Nitrogen 10 mg/dL (9-23); Calcium 8.5 mg/dL (8.7-10.4); Carbon Dioxide 28 mmol/L (20-31); Chloride 102 mmol/L (98-107); Glucose 82 mg/dL (74-106); Potassium 3.1 mmol/L (3.5-5.1); Sodium 137 mmol/L (136-145); Total Protein 4.9 g/dL (5.7-8.2)
[2024-09-01 06:13] LABS: Alanine Aminotransferase < 9 U/L (7-40)
[2024-09-01 07:14] LABS: Rapid Influenza A Negative (Negative); Rapid Influenza B Negative (Negative)
[2024-09-01 07:15] LABS: COVID19 ANTIGEN SOFIA FIA NEGATIVE (NEGATIVE)
[2024-09-01] MEDS ORDERED: POTASSIUM CHLORIDE 60 MEQ, LIDOCAINE 1% (LOCAL ANESTH.) 6 ML in SODIUM CHL 0.9% 500 ML IV ONE (09:15)
--- NOTE | 2024-09-01 09:41 | DVHPNRES ---
Progress Note Date Seen: Sep 01, 2024 Resident Creating Document: SHARAN GONZALES RESIDENT Medical Necessity Reason Pt with a Central, PICC or Fol: Yes The following are medically ne: Carrillo Catheter Subjective Review of Systems Saw the patient at bedside. Patient's at bedside. Plan updated. Patient overall comfortable still feels weak. Patient reports: No new complaints, Feels better Changes from previous H/P or p: No Changes Review of Systems: HEENT:Normal, CVS:Normal, RESPIRATORY:Normal, GI:Normal, :Normal, MSK:Abnormal (Gross bilateral lower leg severe weakness unable to sit up), NEURO:Normal (Alert oriented, limited examination but intact sensory functions) Objective vital signs Vital Sign Date Time Temp Pulse Resp B/P (MAP) Pulse Ox O2 Delivery O2 Flow Rate FiO2 09/01/24 08:02 70 16 96 Room Air* 0 21 09/01/24 05:00 97.5 105/61 (76) 97.5 Total Intake and Output 08/31/24 08/31/24 09/01/24 15:00 23:00 07:00 Intake Total 0 ml 580 ml 120 ml Output Total 3 ml 0 ml Balance 0 ml 577 ml 120 ml medications Current Medications Medications Dose Ordered Sig/Tucker Route Start Time Stop Time Status Last Admin Dose Admin Nitroglycerin 0.4 mg Q5MINP PRN SL 08/31/24 11:45 Morphine Sulfate 2 mg Q30M PRN IV 08/31/24 11:45 Digoxin 0.125 mg DAILY PO 09/01/24 10:00 Ivabradine 5 mg BID PO 08/31/24 22:00 08/31/24 21:33 5 MG Enteral Nutritional Formula 240 ml QID PO 08/31/24 18:00 Apixaban 2.5 mg DAILY PO 08/31/24 15:21 08/31/24 17:27 2.5 MG Furosemide 20 mg DAILY IV 09/01/24 10:00 Examination: GENERAL:Normal, HEENT:Normal, NECK:Normal, LUNGS:Normal (Mild basal rales, on as needed oxygen), CVS:Normal, ABDOMEN:Normal, MSK:Normal, SKIN:Normal, NEURO:Normal, :Normal laboratory and microbiology Laboratory Tests 09/01/24 05:21 Test 09/01/24 05:21 Range/Units Serum Glucose 82 74-106 mg/dL Microbiology Date/Time Source Procedure Growth Status 08/31/24 03:35 Nose MRSA Screen - Final Complete Labs and/or images reviewed: Labs reviewed by me, Image(s) reviewed by me Problem List/Assessment/Plan Problem List/Assessment/Plan Hoaspital course: Mrs. Garcia 64-year-old female with past medical history significant for heart failure with reduced ejection fraction, 10-20%, mitral regurgitation status post MitraClip, dilated cardiomyopathy, cachexia, anorexia, chronic thrombocytopenia, previous history of cardiogenic shock status post Biotronik AICD placement, is waiting for heart transplant At [facility] transplant [place], Dr. Patterson as primary care and came here with chief complaint of increasing bilateral lower leg weakness for past 5 months which is progressive, worsening to the point that patient is not able to ambulate by herself. Patient lives with and family who helps her to mobilize herself with the help of wheelchair, walker, and other assistive devices. Patient is denies chest pain, shortness of breath, PND, orthopnea, signs of heart failure, dyspnea on exertion. She was admitted earlier few months back with acute hypoxic respiratory failure, developed COVID was on remdesivir and subsequently had a [place]-Alyssa catheter that showed elevated left ventricular end- diastolic pressure. Since then patient had progressive weakness to the point patient is not able to move likely due to end-stage heart failure, cachexia and malnutrition. # Occlusive DVT of the right posterior tibial vein: waiting for D-dimer: You have D-dimer more than 500 adjusted for age, we will consider anticoagulation otherwise continue careful watch with repeat we are to found for close monitoring. All the patient had high-risk of transmitting the DVT to proximal side and eventually Dislodged. As per Cardiology patient has been started on Eliquis 2.5mg daily. # Type 2 NSTEMI: patient denies any chest pain, mild elevation of troponin 37, keep the patient on telemetry, electrolyte to monitor and correct. No EKG changes. Cardiology on board. # severe acute on chronic [place] [id number] platelet count. Daily monitoring, avoid heparin / low molecular weight heparin, aspirin, antiplatelet drugs. # Pulmonary edema: small right pleural effusion: Continue IV Lasix, daily weight, salt restriction, fluid restriction. # Mild hypotension: Blood pressure on the softer side 109/55 likely due to chronic heart failure. # Severe deconditioning: with progressive weakness of bilateral lower limb: Physical therapy consulted. Physical therapy t.i.d. extensive physical therapy gait to improve muscle strength and balance. # Normochromic normocytic anemia: denies any bleeding. Close monitoring we will continue with daily CBC. # Moderate to severe malnutrition: with BMI of 17.3: Likely due to cachexia, end-stage heart failure, Dietary consult done, continue nutritional supplement ensure t.i.d.. # heart failure with reduced ejection fraction 10-20% EF: At home patient is on GDM T as well as digoxin, now on Ivabradine/funny for the treatment of heparin along with Lasix oral. Continue Lasix IV 20 daily. We will wait for further input from Cardiology. 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 Dr. Patterson Barriers to discharge: clinical workup ongoing, medical treatment on going, PT pending, at clinical progression we will involve sw for further advanced discharge planning. Case discussed with Dr. Monterroso. Code status: Full code. Complex patient care discussion needed total 41 minutes. Update the plan to . Plan discussed with: Patient, Spouse, Other (Primary team, RN.) My Orders My Orders Orders - SHARAN GONZALES RESIDENT Procedure Category Date Status Time Urinalysis LAB 08/31/24 Logged 10:27 Drug Screen LAB 08/31/24 Logged 10:27 Chest Portable XY 08/31/24 Resulted 10:29 Cardiac DIET 09/01/24 Transmitted Diet-2gna,Lofat,Lochol Dinner * Cardiology Consult CONS 08/31/24 Transmitted 10:29 Electrocardigram EKG 08/31/24 Logged 10:32 Intake And Output ANGLE 08/31/24 In Process 10:33 Obtain Daily Weight ANGLE 08/31/24 In Process 10:33 Maintain Fluid ANGLE 08/31/24 In Process Restrictions 10:33 Bilat Lower Dvt US 08/31/24 Resulted 11:39 Admit ADMIT 08/31/24 Transmitted 11:40 Oxygen By Nasal RT 08/31/24 Transmitted Cannula 11:40 Nitroglycerin PHA 08/31/24 In Process Sublingual (Ntrostat 11:45 Morphine Sulfate PHA 08/31/24 In Process Injection 11:45 Stat Ekg For Chest ANGLE 08/31/24 In Process Pain 11:40 Notify Of Changes [facility] 08/31/24 In Process From Base 11:40 Railroad Dining Car Steward/Stewardess For [facility] 08/31/24 In Process 24 Hours 11:40 Emergency Dysrhythmia [facility] 08/31/24 In Process Protocol 11:40 Rhythm Strips Once [facility] 08/31/24 In Process Every Shift 11:40 Cleanse Wound With [facility] 08/31/24 In Process Wound Clean 10:28 Fibrin Degredation LAB 08/31/24 In Process Products 14:43 Pt Request For Service PT 08/31/24 Logged 18:30 Furosemide Injection PHA 09/01/24 In Process (Lasix Injection) 10:00 Potassium Chloride PHA 09/01/24 Logged (Potassium Chloride). 09:15 Dietary Evaluation Review Comments: 1) Provide PO 2gNa diet texture as tolerated to meet 75% of her needs, 2) If PO feeding is not an option, offer EN feeding when GI is acceptable, offer Javity 1.2 with Fiber @35ml/hr, if pt has no glucose tolerance issue; increase flow rate as tolerated for added energy and protein support. 3) Offer Glucerna @50ml/hr if pt has poor glucose tolerance. 4)Consider TPN if pt is NPO > 7days. Expected Outcomes/Goals: Gradual weight gain. Improved well-being. Laboratory Results Laboratory Tests 09/01/24 05:21 Chemistry Test 08/31/24 11:25 09/01/24 05:21 Albumin 2.9 g/dL (3.2-4.8) L 2.6 g/dL (3.2-4.8) L Calcium Level 8.6 mg/dL (8.7-10.4) L 8.5 mg/dL (8.7-10.4) L Magnesium Level 1.8 mg/dL (1.6-2.6) Total Protein 5.2 g/dL (5.7-8.2) L 4.9 g/dL (5.7-8.2) L Coagulation Test 08/31/24 18:18 Fibrin Degradation Products Pending Cardiac Markers Test 08/31/24 11:25 B-Type Natriuretic Peptide 2287.49 pg/mL (0-100) LFT Test 08/31/24 11:25 09/01/24 05:21 Alanine Aminotransferase (ALT) 16 U/L (7-40) < 9 U/L (7-40) Alkaline Phosphatase 88 U/L (46-116) 75 U/L (46-116) Aspartate Amino Transferase (AST) 32 U/L (13-40) 12 U/L (13-40) L Total Bilirubin 0.5 mg/dL (0.2-1.0) 0.4 mg/dL (0.2-1.0) HgA1c, TSH Test 08/31/24 11:25 Thyroid Stimulating Hormone (TSH) 7.80 uIU/mL (0.55-4.78) H Microbiology Microbiology Date/Time Source Procedure Growth Status 08/31/24 03:35 Nose MRSA Screen - Final Complete Date of Service: Sep 01, 2024 Billing Provider: CARLI MONTERROSO MD Common Visit Codes: [id number] INP/OBS CARE(HIGH) SHARAN GONZALES RESIDENT Sep 01, 2024 09:41 CARLI MONTERROSO MD Sep 01, 2024 20:18
[2024-09-01] MEDS: DIGOXIN 0.125 MG TAB PO SCH (09:46)
[2024-09-01] MEDS: FUROSEMIDE 20 MG/2 ML VIAL IV SCH (09:46)
[2024-09-01] MEDS: POTASSIUM EFFERVESENT TAB 25 MEQ PO ONE (15:20)
[2024-09-02] VITALS (8 sets, daily range): BP systolic 109–153; BP diastolic 56–89; PULSE 68–73; RESP 16–18; TEMP 97.3–98.1; O2SAT 92–99
[2024-09-02 10:31] LABS: Basophils # (auto) 0 10 ^3/uL (0-0.2); Basophils % (auto) 1.1 % (0.0-2.0); Eosinophils # (auto) 0 10 ^3/uL (0-0.8); Eosinophils % (auto) 0.6 % (0.0-7.0); Hematocrit 36.4 % (36.0-46.0); Hemoglobin 11.1 g/dL (12.2-16.2); Lymphocytes # (auto) 0.4 10 ^3/uL (0.4-5.4); Lymphocytes % (auto) 9.6 % (10.0-50.0); Mean Corpuscular Hemoglobin 31.2 pg (28.0-32.0); Mean Corpuscular Hgb Conc. 30.4 g/dL (32.0-36.0); Mean Corpuscular Volume 102.6 fL (80.0-100.0); Monocytes # (auto) 0.4 10 ^3/uL (0-1.3); Monocytes % (auto) 10.5 % (0.0-12.0); Neutrophils # (auto) 3.1 10 ^3/uL (1.6-8.6); Neutrophils % (auto) 78.2 % (37.0-80.0); Nucleated Red Blood Cells % 0.2 %; Platelet Count (auto) 169 10^3/uL (140-450); Red Blood Cells 3.55 10^6/uL (4.0-5.20); Red Cell Distribution Width 23.1 % (11.8-14.3)
[2024-09-02 11:22] LABS: Chloride 103 mmol/L (98-107); Potassium 2.9 mmol/L (3.5-5.1); Sodium 138 mmol/L (136-145)
[2024-09-02 11:23] LABS: Anion Gap 10 (5-15); Calcium 8.6 mg/dL (8.7-10.4); Carbon Dioxide 25 mmol/L (20-31)
[2024-09-02 11:28] LABS: BUN/Creatinine Ratio 21.6 (10.0-20.0); Blood Urea Nitrogen 8 mg/dL (9-23); Glucose 89 mg/dL (74-106)
--- NOTE | 2024-09-02 15:23 | DVHPNRES ---
Progress Note Date Seen: Sep 02, 2024 Resident Creating Document: ANTONIO MORILLO RESIDENT Medical Necessity Reason Pt with a Central, PICC or Fol: Yes The following are medically ne: Carrillo Catheter Subjective Review of Systems Saw the patient at bedside. Patient's at bedside. Plan updated. Patient overall comfortable still feels weak. Patient reports: No new complaints, Feels better Changes from previous H/P or p: No Changes Review of Systems: HEENT:Normal, CVS:Normal, RESPIRATORY:Normal, GI:Normal, :Normal, MSK:Abnormal (Gross bilateral lower leg severe weakness unable to sit up), NEURO:Normal (Alert oriented, limited examination but intact sensory functions) Objective vital signs Vital Sign Date Time Temp Pulse Resp B/P (MAP) Pulse Ox O2 Delivery O2 Flow Rate FiO2 09/02/24 09:29 109/66 09/02/24 09:21 68 09/02/24 09:00 98.1 16 95 98.1 09/02/24 08:00 Nasal Cannula* 1 24 Total Intake and Output 09/01/24 09/01/24 09/02/24 15:00 23:00 07:00 Intake Total 360 ml 350 ml Output Total 3 ml Balance 357 ml 350 ml medications Current Medications Medications Dose Ordered Sig/Tucker Route Start Time Stop Time Status Last Admin Dose Admin Nitroglycerin 0.4 mg Q5MINP PRN SL 08/31/24 11:45 Morphine Sulfate 2 mg Q30M PRN IV 08/31/24 11:45 Digoxin 0.125 mg DAILY PO 09/01/24 10:00 09/02/24 09:21 0.125 MG Ivabradine 5 mg BID PO 08/31/24 22:00 09/02/24 09:21 5 MG Enteral Nutritional Formula 240 ml QID PO 08/31/24 18:00 09/01/24 12:04 240 ML Apixaban 2.5 mg DAILY PO 08/31/24 15:21 09/02/24 09:21 2.5 MG Furosemide 20 mg DAILY IV 09/01/24 10:00 09/02/24 09:29 20 MG Potassium Chloride 100 ml @ 50 mls/hr Q2H IV 09/02/24 13:45 09/02/24 17:44 Levothyroxine Sodium 50 mcg QAM@0600 PO 09/03/24 06:00 Examination GENERAL:Normal, HEENT:Normal, NECK:Normal, LUNGS:Normal (Mild basal rales, on as needed oxygen), CVS:Normal, ABDOMEN:Normal, MSK:Normal, SKIN:Normal, NEURO:Normal, :Normal laboratory and microbiology Laboratory Tests 09/02/24 10:11 Test 09/02/24 10:11 Range/Units Serum Glucose 89 74-106 mg/dL Microbiology Date/Time Source Procedure Growth Status 08/31/24 03:35 Nose MRSA Screen - Final Complete Problem List/Assessment/Plan Problem List/Assessment/Plan Mrs. Garcia 64-year-old female with past medical history significant for heart failure with reduced ejection fraction, 10-20%, mitral regurgitation status post MitraClip, dilated cardiomyopathy, cachexia, anorexia, chronic thrombocytopenia, previous history of cardiogenic shock status post Biotronik AICD placement, is waiting for heart transplant At [facility] transplant [place], Dr. Patterson as primary care and came here with chief complaint of increasing bilateral lower leg weakness for past 5 months which is progressive, worsening to the point that patient is not able to ambulate by herself. Patient lives with and family who helps her to mobilize herself with the help of wheelchair, walker, and other assistive devices. Patient is denies chest pain, shortness of breath, PND, orthopnea, signs of heart failure, dyspnea on exertion. She was admitted earlier few months back with acute hypoxic respiratory failure, developed COVID was on remdesivir and subsequently had a [place]-Alyssa catheter that showed elevated left ventricular end-diastolic pressure. Since then patient had progressive weakness to the point patient is not able to move likely due to end-stage heart failure, cachexia and malnutrition. # Occlusive DVT of the right posterior tibial vein: waiting for D-dimer: You have D-dimer more than 500 adjusted for age, we will consider anticoagulation otherwise continue careful watch with repeat we are to found for close monitoring. All the patient had high-risk of transmitting the DVT to proximal side and eventually Dislodged. As per Cardiology patient has been started on Eliquis 2.5mg daily. # Type 2 NSTEMI: patient denies any chest pain, mild elevation of troponin 37, keep the patient on telemetry, electrolyte to monitor and correct. No EKG changes. Cardiology on board. # severe acute on chronic [place]ocyt[place] [address] platelet count. Daily monitoring, avoid heparin / low molecular weight heparin, aspirin, antiplatelet drugs. # Pulmonary edema: small right pleural effusion: Continue IV Lasix, daily weight, salt restriction, fluid restriction. # Mild hypotension: Blood pressure on the softer side 109/55 likely due to chronic heart failure. # Severe deconditioning: with progressive weakness of bilateral lower limb: Physical therapy consulted. Physical therapy t.i.d. extensive physical therapy gait to improve muscle strength and balance. # Normochromic normocytic anemia: denies any bleeding. Close monitoring we will continue with daily CBC. # Moderate to severe malnutrition: with BMI of 17.3: Likely due to cachexia, end-stage heart failure, Dietary consult done, continue nutritional supplement ensure t.i.d.. # heart failure with reduced ejection fraction 10-20% EF: At home patient is on GDM T as well as digoxin, now on Ivabradine/funny for the treatment of heparin along with Lasix oral. Continue Lasix IV 20 daily. We will wait for further input from Cardiology. 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 Dr. Patterson Barriers to discharge: clinical workup ongoing, medical treatment on going, PT pending, at clinical progression we will involve sw for further advanced discharge planning. Case discussed with Dr. Monterroso. Plan discussed with: Patient, Other (RN) My Orders My Orders Orders - ANTONIO MORILLO RESIDENT Procedure Category Date Status Time Potassium Chl PHA 09/02/24 In Process 20meq/100ml 13:45 Levothyroxine Tablet PHA 09/03/24 In Process (Synthroid Tablet) 06:00 Dietary Evaluation Review Comments: 1) Provide PO 2gNa diet texture as tolerated to meet 75% of her needs, 2) If PO feeding is not an option, offer EN feeding when GI is acceptable, offer Javity 1.2 with Fiber @35ml/hr, if pt has no glucose tolerance issue; increase flow rate as tolerated for added energy and protein support. 3) Offer Glucerna @50ml/hr if pt has poor glucose tolerance. 4)Consider TPN if pt is NPO > 7days. Expected Outcomes/Goals: Gradual weight gain. Improved well-being. Date of Service: Sep 02, 2024 Billing Provider: CARLI MONTERROSO MD Common Visit Codes: [id number] INP/OBS CARE(HIGH) ANTONIO MORILLO RESIDENT Sep 02, 2024 15:23 CARLI MONTERROSO MD Sep 03, 2024 13:27
[2024-09-02] MEDS: POTASSIUM EFFERVESENT TAB 25 MEQ PO ONE (15:30)
[2024-09-02] MEDS: POTASSIUM CHL 20MEQ/100ML 100 ML IV SCH (15:31)
[2024-09-03] VITALS (8 sets, daily range): BP systolic 104–131; BP diastolic 56–73; PULSE 70–95; RESP 15–18; TEMP 97.6–98.4; O2SAT 91–99
[2024-09-03] MEDS: LEVOTHYROXINE SODIUM 25 MCG TAB PO SCH (05:45)
--- NOTE | 2024-09-03 08:05 | DVHPNRES ---
Progress Note Medical Necessity Reason Pt with a Central, PICC or Fol: Yes The following are medically ne: Carrillo Catheter Objective vital signs Vital Sign Date Time Temp Pulse Resp B/P (MAP) Pulse Ox O2 Delivery O2 Flow Rate FiO2 09/03/24 05:00 97.6 70 17 126/58 (80) 91 97.6 09/02/24 20:00 Nasal Cannula* 1 24 Total Intake and Output 09/02/24 09/02/24 09/03/24 15:00 23:00 07:00 Intake Total 200 ml 900 ml 240 ml Balance 200 ml 900 ml 240 ml medications Current Medications Medications Dose Ordered Sig/Tucker Route Start Time Stop Time Status Last Admin Dose Admin Nitroglycerin 0.4 mg Q5MINP PRN SL 08/31/24 11:45 Morphine Sulfate 2 mg Q30M PRN IV 08/31/24 11:45 Digoxin 0.125 mg DAILY PO 09/01/24 10:00 09/02/24 09:21 0.125 MG Ivabradine 5 mg BID PO 08/31/24 22:00 09/02/24 21:24 5 MG Enteral Nutritional Formula 240 ml QID PO 08/31/24 18:00 09/02/24 18:00 240 ML Apixaban 2.5 mg DAILY PO 08/31/24 15:21 09/02/24 09:21 2.5 MG Furosemide 20 mg DAILY IV 09/01/24 10:00 09/02/24 09:29 20 MG Levothyroxine Sodium 50 mcg QAM@0600 PO 09/03/24 06:00 09/03/24 05:45 50 MCG laboratory and microbiology Laboratory Tests 09/02/24 10:11 Test 09/02/24 10:11 Range/Units Serum Glucose 89 74-106 mg/dL Microbiology Date/Time Source Procedure Growth Status 08/31/24 03:35 Nose MRSA Screen - Final Complete Problem List/Assessment/Plan Problem List/Assessment/Plan Hoaspital course: Mrs. Garcia 64-year-old female with past medical history significant for heart failure with reduced ejection fraction, 10-20%, mitral regurgitation status post MitraClip, dilated cardiomyopathy, cachexia, anorexia, chronic thrombocytopenia, previous history of cardiogenic shock status post Biotronik AICD placement, is waiting for heart transplant At [facility] transplant [place], Dr. Patterson as primary care and came here with chief complaint of increasing bilateral lower leg weakness for past 5 months which is progressive, worsening to the point that patient is not able to ambulate by herself. Patient lives with and family who helps her to mobilize herself with the help of wheelchair, walker, and other assistive devices. Patient is denies chest pain, shortness of breath, PND, orthopnea, signs of heart failure, dyspnea on exertion. She was admitted earlier few months back with acute hypoxic respiratory failure, developed COVID was on remdesivir and subsequently had a [place]-Alyssa catheter that showed elevated left ventricular end- diastolic pressure. Since then patient had progressive weakness to the point patient is not able to move likely due to end-stage heart failure, cachexia and malnutrition. # Occlusive DVT of the right posterior tibial vein: waiting for D-dimer: You have D-dimer more than 500 adjusted for age, we will consider anticoagulation otherwise continue careful watch with repeat we are to found for close monitoring. All the patient had high-risk of transmitting the DVT to proximal side and eventually Dislodged. As per Cardiology patient has been started on Eliquis 2.5mg daily. # Type 2 NSTEMI: patient denies any chest pain, mild elevation of troponin 37, keep the patient on telemetry, electrolyte to monitor and correct. No EKG changes. Cardiology on board. # severe acute on chronic Thrombocytopenia: with 90759 platelet count. Daily monitoring, avoid heparin / low molecular weight heparin, aspirin, antiplatelet drugs. # Pulmonary edema: small right pleural effusion: Continue IV Lasix, daily weight, salt restriction, fluid restriction. # Mild hypotension: Blood pressure on the softer side 109/55 likely due to chronic heart failure. # Severe deconditioning: with progressive weakness of bilateral lower limb: Physical therapy consulted. Physical therapy t.i.d. extensive physical therapy gait to improve muscle strength and balance. # Normochromic normocytic anemia: denies any bleeding. Close monitoring we will continue with daily CBC. # Moderate to severe malnutrition: with BMI of 17.3: Likely due to cachexia, end-stage heart failure, Dietary consult done, continue nutritional supplement ensure t.i.d.. # heart failure with reduced ejection fraction 10-20% EF: At home patient is on GDM T as well as digoxin, now on Ivabradine/funny for the treatment of heparin along with Lasix oral. Continue Lasix IV 20 daily. We will wait for further input from Cardiology. 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 Dr. Patterson Barriers to discharge: clinical workup ongoing, medical treatment on going, PT pending, at clinical progression we will involve sw for further advanced discharge planning. Case discussed with Dr. Marcos. Code status: Full code. Complex patient care discussion needed total 41 minutes. Update the plan to . Dietary Evaluation Review Comments: 1) Provide PO 2gNa diet texture as tolerated to meet 75% of her needs, 2) If PO feeding is not an option, offer EN feeding when GI is acceptable, offer Javity 1.2 with Fiber @35ml/hr, if pt has no glucose tolerance issue; increase flow rate as tolerated for added energy and protein support. 3) Offer Glucerna @50ml/hr if pt has poor glucose tolerance. 4)Consider TPN if pt is NPO > 7days. Expected Outcomes/Goals: Gradual weight gain. Improved well-being. Labs/Diagnostic Data Laboratory Tests Test 09/02/24 10:11 Range/Units White Blood Count 4.0 L 4.4-10.8 10^3/uL Red Blood Count 3.55 L 4.0-5.20 10^6/uL Hemoglobin 11.1 #L 12.2-16.2 g/dL Hematocrit 36.4 # 36.0-46.0 % Mean Corpuscular Volume 102.6 H 80.0-100.0 fL Mean Corpuscular Hemoglobin 31.2 28.0-32.0 pg Mean Corpuscular Hemoglobin Concent 30.4 L 32.0-36.0 g/dL Red Cell Distribution Width 23.1 H 11.8-14.3 % Platelet Count 169 140-450 10^3/uL Mean Platelet Volume 8.2 6.9-10.8 fL Neutrophils (%) (Auto) 78.2 37.0-80.0 % Lymphocytes (%) (Auto) 9.6 L 10.0-50.0 % Monocytes (%) (Auto) 10.5 0.0-12.0 % Eosinophils (%) (Auto) 0.6 0.0-7.0 % Basophils (%) (Auto) 1.1 0.0-2.0 % Neutrophils # (Auto) 3.1 1.6-8.6 10 ^3/uL Lymphocytes # (Auto) 0.4 0.4-5.4 10 ^3/uL Monocytes # (Auto) 0.4 0-1.3 10 ^3/uL Eosinophils # (Auto) 0 0-0.8 10 ^3/uL Basophils # (Auto) 0 0-0.2 10 ^3/uL Nucleated Red Blood Cells 0.2 % Sodium Level 138 136-145 mmol/L Potassium Level 2.9 L 3.5-5.1 mmol/L Chloride Level 103 98-107 mmol/L Carbon Dioxide Level 25 20-31 mmol/L Anion Gap 10 5-15 Blood Urea Nitrogen 8 L 9-23 mg/dL Creatinine 0.37 L 0.550-1.02 mg/dL Glomerular Filtration Rate Calc 113 >90 mL/min BUN/Creatinine Ratio 21.6 H 10.0-20.0 Serum Glucose 89 74-106 mg/dL Calcium Level 8.6 L 8.7-10.4 mg/dL Microbiology Date/Time Source Procedure Growth Status 08/31/24 03:35 Nose MRSA Screen - Final Complete SHARAN GONZALES RESIDENT Sep 03, 2024 08:04
--- NOTE | 2024-09-03 09:09 | DVHPN2 ---
Progress Note - Dictate Date Seen: Sep 03, 2024 Medical Necessity Reason Pt with a Central, PICC or Fol: Yes The following are medically ne: Carrillo Catheter Subjective HFrEF ACUTE DILATED CM S/P AICD HTN NOW WITH MARKED ELEVATED BNP ACUTE HFrEF DCM EF <20% cachexia/ anorexia NORMAL CORONARIES EF <20% S/P MITRAL VALVE CLIP BILATERAL PLEURAL EFFUSION HX OF THORACENTESIS NOW WITH ACUTE DECOMPENSATION NO CLINICAL OR RADIOGRAPHIC EVIDENCE FOR PNEUMONIA INCREASE SYNTHROID TO 200 CORRECT HYPOKALEMIA PT ADMITTED TO [facility]ATED FOR HEART TRANSPLANT CURRENTLY NOT A CANDIDATE BECAUSE OF CACHEXIA S/P G TUBE PLACEMENT FOR NUTRITIONAL SUPPORT ONCE PT HAS ADEQUATE IMPROVEMENT IN NUTRITIONAL STATUS AND STRENGTH PT CAN BE BECOME ELIBILE FOR HEART TRANSPLANT vital signs Vital Sign Date Time Temp Pulse Resp B/P (MAP) Pulse Ox O2 Delivery O2 Flow Rate FiO2 09/03/24 05:00 97.6 70 17 126/58 (80) 91 97.6 09/02/24 20:00 Nasal Cannula* 1 24 Total Intake and Output 09/02/24 09/02/24 09/03/24 15:00 23:00 07:00 Intake Total 200 ml 900 ml 240 ml Balance 200 ml 900 ml 240 ml medications Current Medications Medications Dose Ordered Sig/Tucker Route Start Time Stop Time Status Last Admin Dose Admin Nitroglycerin 0.4 mg Q5MINP PRN SL 08/31/24 11:45 Morphine Sulfate 2 mg Q30M PRN IV 08/31/24 11:45 Digoxin 0.125 mg DAILY PO 09/01/24 10:00 09/02/24 09:21 0.125 MG Ivabradine 5 mg BID PO 08/31/24 22:00 09/02/24 21:24 5 MG Enteral Nutritional Formula 240 ml QID PO 08/31/24 18:00 09/02/24 18:00 240 ML Apixaban 2.5 mg DAILY PO 08/31/24 15:21 09/02/24 09:21 2.5 MG Furosemide 20 mg DAILY IV 09/01/24 10:00 09/02/24 09:29 20 MG Levothyroxine Sodium 50 mcg QAM@0600 PO 09/03/24 06:00 09/03/24 05:45 50 MCG laboratory and microbiology Laboratory Tests 09/02/24 10:11 Test 09/02/24 10:11 Range/Units Serum Glucose 89 74-106 mg/dL Problem List HFrEF ACUTE DILATED CM S/P AICD HTN NOW WITH MARKED ELEVATED BNP ACUTE HFrEF DCM EF <20% cachexia/ anorexia NORMAL CORONARIES EF <20% S/P MITRAL VALVE CLIP BILATERAL PLEURAL EFFUSION HX OF THORACENTESIS NOW WITH ACUTE DECOMPENSATION NO CLINICAL OR RADIOGRAPHIC EVIDENCE FOR PNEUMONIA INCREASE SYNTHROID TO 200 CORRECT HYPOKALEMIA PT ADMITTED TO [facility] FOR HEART TRANSPLANT CURRENTLY NOT A CANDIDATE BECAUSE OF CACHEXIA S/P G TUBE PLACEMENT FOR NUTRITIONAL SUPPORT ONCE PT HAS ADEQUATE IMPROVEMENT IN NUTRITIONAL STATUS AND STRENGTH PT CAN BE BECOME ELIBILE FOR HEART TRANSPLANT Assessment/Plan TITRATE ON MEDS PT INCREASE NUTRITIONAL SUPPLEMENT WITH DIG AND CORLANOR HEART RATE CONTROLED START MEGACE DIC PANEL CONSIDER BONE MARROW BX ITP R/O Dietary Evaluation Review Comments: 1) Provide PO 2gNa diet texture as tolerated to meet 75% of her needs, 2) If PO feeding is not an option, offer EN feeding when GI is acceptable, offer Javity 1.2 with Fiber @35ml/hr, if pt has no glucose tolerance issue; increase flow rate as tolerated for added energy and protein support. 3) Offer Glucerna @50ml/hr if pt has poor glucose tolerance. 4)Consider TPN if pt is NPO > 7days. Expected Outcomes/Goals: Gradual weight gain. Improved well-being. Plan discussed with: Patient, Spouse Critical Care Time(min): 35 KALLIE GLASGOW MD Sep 03, 2024 09:09
[2024-09-03 09:22] LABS: Basophils # (auto) 0.1 10 ^3/uL (0-0.2); Basophils % (auto) 1.7 % (0.0-2.0); Eosinophils # (auto) 0 10 ^3/uL (0-0.8); Eosinophils % (auto) 0.9 % (0.0-7.0); Hematocrit 33.2 % (36.0-46.0); Hemoglobin 10.4 g/dL (12.2-16.2); Lymphocytes # (auto) 0.5 10 ^3/uL (0.4-5.4); Lymphocytes % (auto) 12.2 % (10.0-50.0); Mean Corpuscular Hemoglobin 31.1 pg (28.0-32.0); Mean Corpuscular Hgb Conc. 31.4 g/dL (32.0-36.0); Monocytes # (auto) 0.4 10 ^3/uL (0-1.3); Monocytes % (auto) 11.3 % (0.0-12.0); Neutrophils # (auto) 2.9 10 ^3/uL (1.6-8.6); Neutrophils % (auto) 73.9 % (37.0-80.0); Nucleated Red Blood Cells % 0.2 %; Platelet Count (auto) 193 10^3/uL (140-450); Red Blood Cells 3.35 10^6/uL (4.0-5.20); Red Cell Distribution Width 21.6 % (11.8-14.3); White Blood Cell 3.9 10^3/uL (4.4-10.8)
[2024-09-03 09:32] LABS: Alkaline Phosphatase 72 U/L (46-116); Anion Gap 8 (5-15); Aspartate Aminotransferase 18 U/L (13-40); BUN/Creatinine Ratio 25.8 (10.0-20.0); Blood Urea Nitrogen 8 mg/dL (9-23); Calcium 8.6 mg/dL (8.7-10.4); Carbon Dioxide 27 mmol/L (20-31); Chloride 103 mmol/L (98-107); Glucose 86 mg/dL (74-106); Sodium 138 mmol/L (136-145)
[2024-09-03 09:33] LABS: Albumin 2.8 g/dL (3.2-4.8); Bilirubin, Total 0.4 mg/dL (0.2-1.0); Total Protein 5.2 g/dL (5.7-8.2)
[2024-09-03 09:39] LABS: Alanine Aminotransferase < 9 U/L (7-40)
[2024-09-03] MEDS: POTASSIUM CHL 20MEQ/100ML 100 ML IV SCH ×2 (11:30→20:17)
--- NOTE | 2024-09-03 11:45 | DVHPN2 ---
Progress Note Date Seen: Sep 03, 2024 Medical Necessity Reason Pt with a Central, PICC or Fol: Yes The following are medically ne: Munoz Catheter Reason for munoz catheter: Strict I&O Subjective Patient reports: No new complaints Review of Systems: HEENT:Normal, CVS:Normal, RESPIRATORY:Normal, GI:Normal, :Normal, MSK:Normal, NEURO:Normal Objective vital signs Vital Sign Date Time Temp Pulse Resp B/P (MAP) Pulse Ox O2 Delivery O2 Flow Rate FiO2 09/03/24 09:44 70 09/03/24 09:43 104/62 09/03/24 09:00 97.9 15 95 97.9 09/03/24 08:00 Nasal Cannula* 1 24 Total Intake and Output 09/02/24 09/02/24 09/03/24 15:00 23:00 07:00 Intake Total 200 ml 900 ml 240 ml Balance 200 ml 900 ml 240 ml medications Current Medications Medications Dose Ordered Sig/Tucker Route Start Time Stop Time Status Last Admin Dose Admin Nitroglycerin 0.4 mg Q5MINP PRN SL 08/31/24 11:45 Morphine Sulfate 2 mg Q30M PRN IV 08/31/24 11:45 Digoxin 0.125 mg DAILY PO 09/01/24 10:00 09/03/24 09:44 0.125 MG Ivabradine 5 mg BID PO 08/31/24 22:00 09/03/24 09:43 5 MG Enteral Nutritional Formula 240 ml QID PO 08/31/24 18:00 09/02/24 18:00 240 ML Apixaban 2.5 mg DAILY PO 08/31/24 15:21 09/03/24 09:44 2.5 MG Furosemide 20 mg DAILY IV 09/01/24 10:00 09/03/24 09:43 20 MG Levothyroxine Sodium 50 mcg QAM@0600 PO 09/03/24 06:00 09/03/24 05:45 50 MCG Potassium Chloride 100 ml @ 50 mls/hr Q2H IV 09/03/24 09:15 09/03/24 17:14 Examination: GENERAL:Normal, HEENT:Normal, NECK:Normal, LUNGS:Normal, CVS:Normal, ABDOMEN:Normal, ABDOMEN:Abnormal (peg tube), MSK:Normal, SKIN:Normal, NEURO:Normal, :Normal laboratory and microbiology Laboratory Tests 09/03/24 09:02 Test 09/03/24 09:02 Range/Units Serum Glucose 86 74-106 mg/dL Microbiology Date/Time Source Procedure Growth Status 08/31/24 03:35 Nose MRSA Screen - Final Complete Problem List/Assessment/Plan Problem List/Assessment/Plan * Acute on chronic systolic heart failure: iv lasix, aldactone, dig * Hypothyroidism: check tsh * Status post AICD. * Non-STEMI likely type 2. * s/p covid 19 * mod/severe malnutrition: on tube feedings advance care planning- full code- time spent 19 mins Plan discussed with: Patient Dietary Evaluation Review Comments: 1) Provide PO 2gNa diet texture as tolerated to meet 75% of her needs, 2) If PO feeding is not an option, offer EN feeding when GI is acceptable, offer Javity 1.2 with Fiber @35ml/hr, if pt has no glucose tolerance issue; increase flow rate as tolerated for added energy and protein support. 3) Offer Glucerna @50ml/hr if pt has poor glucose tolerance. 4)Consider TPN if pt is NPO > 7days. Expected Outcomes/Goals: Gradual weight gain. Improved well-being. Date of Service: Sep 03, 2024 Billing Provider: SMITHA ALDRIDGE MD Common Visit Codes: [id number] INP/OBS CARE(HIGH) Secondary Visit Codes: [id number] CARE PLAN 30 MINUTES SMITHA ALDRIDGE MD Sep 03, 2024 11:45
--- NOTE | 2024-09-03 15:56 | CONS ---
Pharmacy Clinical Information: From Concurrent Heart Failure Report, Belle Garcia is a 64 year old female with PMH of dilated cardiomyopathy s/p AICD, mitral regurgitation s/p MitraClip, CHF (LVEF 10 - 20%). Her home medications for heart failure include spironolactone, benazepril, furosemide, and digoxin. Her inpatient medications include spironolactone, ivabradine, furosemide, and digoxin. Recommend to continue spironolactone to help replete potassium levels and avoid digoxin toxicity. Recommend to continue holding the initiation of ACEi/ARB/ARNi and BB due to mild hypotension. Recommend to continue holding the initiation of SGLT2i due to mild hypotension and increased risk of hypoglycemia from low blood sugar. Consider initiation once patient is hemodynamically stable and has adequate improvement in nutritional status. KACEY NOLASCO PHARMACIST Sep 03, 2024 15:56
[2024-09-04] VITALS (8 sets, daily range): BP systolic 113–144; BP diastolic 55–71; PULSE 60–72; RESP 16–18; TEMP 97.6–98.7; O2SAT 92–100
[2024-09-04 06:35] LABS: Anion Gap 7 (5-15); Carbon Dioxide 26 mmol/L (20-31); Chloride 105 mmol/L (98-107); Potassium 3.9 mmol/L (3.5-5.1); Sodium 138 mmol/L (136-145)
[2024-09-04 06:37] LABS: Calcium 8.8 mg/dL (8.7-10.4)
[2024-09-04 06:41] LABS: Glucose 76 mg/dL (74-106)
[2024-09-04 06:42] LABS: BUN/Creatinine Ratio 21.4 (10.0-20.0); Blood Urea Nitrogen 9 mg/dL (9-23); Magnesium 1.8 mg/dL (1.6-2.6)
[2024-09-04] MEDS: POTASSIUM CHL 20 Meq TABLET PO SCH (09:17)
[2024-09-04] MEDS: SPIRONOLACTONE 25 MG TAB PO SCH (09:18)
--- NOTE | 2024-09-04 14:04 | DVHPN2 ---
Progress Note - Dictate Date Seen: Sep 04, 2024 Medical Necessity Reason Pt with a Central, PICC or Fol: Yes The following are medically ne: Munoz Catheter Reason for munoz catheter: Strict I&O Subjective HFrEF ACUTE DILATED CM S/P AICD HTN NOW WITH MARKED ELEVATED BNP ACUTE HFrEF DCM EF <20% cachexia/ anorexia NORMAL CORONARIES EF <20% S/P MITRAL VALVE CLIP BILATERAL PLEURAL EFFUSION HX OF THORACENTESIS NOW WITH ACUTE DECOMPENSATION NO CLINICAL OR RADIOGRAPHIC EVIDENCE FOR PNEUMONIA INCREASE SYNTHROID TO 200 CORRECT HYPOKALEMIA PT ADMITTED TO [facility] FOR HEART TRANSPLANT CURRENTLY NOT A CANDIDATE BECAUSE OF CACHEXIA S/P G TUBE PLACEMENT FOR NUTRITIONAL SUPPORT ONCE PT HAS ADEQUATE IMPROVEMENT IN NUTRITIONAL STATUS AND STRENGTH PT CAN BE BECOME ELIBILE FOR HEART TRANSPLANT vital signs Vital Sign Date Time Temp Pulse Resp B/P (MAP) Pulse Ox O2 Delivery O2 Flow Rate FiO2 09/04/24 12:39 98.7 69 17 129/66 (87) 100 98.7 09/04/24 08:00 Room Air* 0 N/A Nasal Cannula* Total Intake and Output 09/03/24 09/03/24 09/04/24 15:00 23:00 07:00 Intake Total 100 ml 760 ml 300 ml Balance 100 ml 760 ml 300 ml medications Current Medications Medications Dose Ordered Sig/Tucker Route Start Time Stop Time Status Last Admin Dose Admin Nitroglycerin 0.4 mg Q5MINP PRN SL 08/31/24 11:45 Morphine Sulfate 2 mg Q30M PRN IV 08/31/24 11:45 Digoxin 0.125 mg DAILY PO 09/01/24 10:00 09/04/24 09:17 0.125 MG Ivabradine 5 mg BID PO 08/31/24 22:00 09/04/24 09:18 5 MG Enteral Nutritional Formula 240 ml QID PO 08/31/24 18:00 09/03/24 12:00 240 ML Apixaban 2.5 mg DAILY PO 08/31/24 15:21 09/04/24 09:17 2.5 MG Furosemide 20 mg DAILY IV 09/01/24 10:00 09/04/24 09:17 20 MG Levothyroxine Sodium 50 mcg QAM@0600 PO 09/03/24 06:00 09/04/24 05:40 50 MCG Potassium Chloride 20 meq DAILY PO 09/04/24 10:00 09/04/24 09:17 20 MEQ Spironolactone 25 mg DAILY PO 09/04/24 10:00 09/04/24 09:18 25 MG laboratory and microbiology Laboratory Tests 09/04/24 05:33 09/03/24 09:02 Test 09/04/24 05:33 Range/Units Serum Glucose 76 74-106 mg/dL Problem List HFrEF ACUTE DILATED CM S/P AICD HTN NOW WITH MARKED ELEVATED BNP ACUTE HFrEF DCM EF <20% cachexia/ anorexia NORMAL CORONARIES EF <20% S/P MITRAL VALVE CLIP BILATERAL PLEURAL EFFUSION HX OF THORACENTESIS NOW WITH ACUTE DECOMPENSATION NO CLINICAL OR RADIOGRAPHIC EVIDENCE FOR PNEUMONIA INCREASE SYNTHROID TO 200 CORRECT HYPOKALEMIA PT ADMITTED TO [facility] FOR HEART TRANSPLANT CURRENTLY NOT A CANDIDATE BECAUSE OF CACHEXIA S/P G TUBE PLACEMENT FOR NUTRITIONAL SUPPORT ONCE PT HAS ADEQUATE IMPROVEMENT IN NUTRITIONAL STATUS AND STRENGTH PT CAN BE BECOME ELIBILE FOR HEART TRANSPLANT Assessment/Plan TITRATE ON MEDS PT INCREASE NUTRITIONAL SUPPLEMENT WITH DIG AND CORLANOR HEART RATE CONTROLED START MEGACE DIC PANEL CONSIDER BONE MARROW BX ITP R/O START MEGACE INCREASE SYNTHROID TO 150 lise Dietary Evaluation Review Comments: 1) Continue to monitor pt PO intake to meed at least 75% of meals 2) Consider TESSIE BID for wound 3) Continue current plan of care Expected Outcomes/Goals: 1) Pt appetite to improve 2) F/U in 3-5 days Plan discussed with: Patient KALLIE GLASGOW MD Sep 04, 2024 14:04
[2024-09-04] MEDS ORDERED: LEVOTHYROXINE SODIUM 25 MCG TAB PO SCH (14:15)
--- NOTE | 2024-09-04 15:24 | DVHPN2 ---
Progress Note Date Seen: Sep 04, 2024 Medical Necessity Reason Pt with a Central, PICC or Fol: Yes The following are medically ne: Munoz Catheter Reason for munoz catheter: Strict I&O Subjective Patient reports: No new complaints Review of Systems: HEENT:Normal, CVS:Normal, RESPIRATORY:Normal, GI:Normal, :Normal, MSK:Normal, NEURO:Normal Objective vital signs Vital Sign Date Time Temp Pulse Resp B/P (MAP) Pulse Ox O2 Delivery O2 Flow Rate FiO2 09/04/24 12:39 98.7 69 17 129/66 (87) 100 98.7 09/04/24 08:00 Room Air* 0 N/A Nasal Cannula* Total Intake and Output 09/03/24 09/03/24 09/04/24 15:00 23:00 07:00 Intake Total 100 ml 760 ml 300 ml Balance 100 ml 760 ml 300 ml medications Current Medications Medications Dose Ordered Sig/Tucker Route Start Time Stop Time Status Last Admin Dose Admin Nitroglycerin 0.4 mg Q5MINP PRN SL 08/31/24 11:45 Morphine Sulfate 2 mg Q30M PRN IV 08/31/24 11:45 Digoxin 0.125 mg DAILY PO 09/01/24 10:00 09/04/24 09:17 0.125 MG Ivabradine 5 mg BID PO 08/31/24 22:00 09/04/24 09:18 5 MG Enteral Nutritional Formula 240 ml QID PO 08/31/24 18:00 09/04/24 14:00 240 ML Apixaban 2.5 mg DAILY PO 08/31/24 15:21 09/04/24 09:17 2.5 MG Furosemide 20 mg DAILY IV 09/01/24 10:00 09/04/24 09:17 20 MG Potassium Chloride 20 meq DAILY PO 09/04/24 10:00 09/04/24 09:17 20 MEQ Spironolactone 25 mg DAILY PO 09/04/24 10:00 09/04/24 09:18 25 MG Levothyroxine Sodium 150 mcg QAM@0600 PO 09/04/24 14:15 UNV Levothyroxine Sodium 100 mcg DAILY@0600 PO 09/05/24 06:00 Levothyroxine Sodium 50 mcg DAILY@0600 PO 09/05/24 06:00 Mirtazapine 15 mg HS PO 09/04/24 22:00 UNV Examination: GENERAL:Normal, HEENT:Normal, NECK:Normal, LUNGS:Normal, CVS:Normal, ABDOMEN:Normal, MSK:Normal, SKIN:Normal, NEURO:Normal, :Normal laboratory and microbiology Laboratory Tests 09/04/24 05:33 09/03/24 09:02 Test 09/04/24 05:33 Range/Units Serum Glucose 76 74-106 mg/dL Microbiology Date/Time Source Procedure Growth Status 08/31/24 03:35 Nose MRSA Screen - Final Complete Problem List/Assessment/Plan Problem List/Assessment/Plan * Acute on chronic systolic heart failure: iv lasix, aldactone, dig * Hypothyroidism: check tsh, adjust dose * Status post AICD. * Non-STEMI likely type 2. * s/p covid 19 * mod/severe malnutrition: on tube feedings,mirtazepine advance care planning- full code- time spent 19 mins Plan discussed with: Patient My Orders My Orders Orders - SMITHA ALDRIDGE MD Procedure Category Date Status Time Mirtazapine Tablet PHA 09/04/24 Logged (Remeron Tablet) 22:00 Dietary Evaluation Review Comments: 1) Continue to monitor pt PO intake to meed at least 75% of meals 2) Consider TESSIE BID for wound 3) Continue current plan of care Expected Outcomes/Goals: 1) Pt appetite to improve 2) F/U in 3-5 days Date of Service: Sep 04, 2024 Billing Provider: SMITHA ALDRIDGE MD Common Visit Codes: [id number] INP/OBS CARE(HIGH) SMITHA ALDRIDGE MD Sep 04, 2024 15:24
[2024-09-04] MEDS: MIRTAZAPINE 30 MG TAB PO SCH (21:17)
[2024-09-05] VITALS (8 sets, daily range): BP systolic 109–132; BP diastolic 48–63; PULSE 52–71; RESP 16–17; TEMP 97.5–98.1; O2SAT 90–98
[2024-09-05] MEDS: LEVOTHYROXINE SODIUM 112 MCG TAB PO SCH (05:35)
[2024-09-05] MEDS ORDERED: LEVOTHYROXINE SODIUM 50 MCG TAB PO SCH (06:00)
[2024-09-05] MEDS ORDERED: LEVOTHYROXINE SODIUM 100 MCG TAB PO SCH (06:00)
--- NOTE | 2024-09-05 12:46 | DVHPN2 ---
Progress Note Date Seen: Sep 05, 2024 Medical Necessity Reason Pt with a Central, PICC or Fol: No Subjective Patient reports: No new complaints Review of Systems: HEENT:Normal, CVS:Normal, RESPIRATORY:Normal, GI:Normal, :Normal, MSK:Normal, NEURO:Normal Objective vital signs Vital Sign Date Time Temp Pulse Resp B/P (MAP) Pulse Ox O2 Delivery O2 Flow Rate FiO2 09/05/24 10:08 70 09/05/24 10:07 126/61 09/05/24 09:27 98.1 16 98 98.1 09/05/24 08:00 Room Air* 0 21 Total Intake and Output 09/04/24 09/04/24 09/05/24 15:00 23:00 07:00 Intake Total 200 ml 240 ml Balance 200 ml 240 ml medications Current Medications Medications Dose Ordered Sig/Tucker Route Start Time Stop Time Status Last Admin Dose Admin Nitroglycerin 0.4 mg Q5MINP PRN SL 08/31/24 11:45 Morphine Sulfate 2 mg Q30M PRN IV 08/31/24 11:45 Digoxin 0.125 mg DAILY PO 09/01/24 10:00 09/05/24 10:08 0.125 MG Ivabradine 5 mg BID PO 08/31/24 22:00 09/05/24 10:08 5 MG Enteral Nutritional Formula 240 ml QID PO 08/31/24 18:00 09/04/24 14:00 240 ML Apixaban 2.5 mg DAILY PO 08/31/24 15:21 09/05/24 10:08 2.5 MG Furosemide 20 mg DAILY IV 09/01/24 10:00 09/05/24 10:07 20 MG Potassium Chloride 20 meq DAILY PO 09/04/24 10:00 09/04/24 09:17 20 MEQ Spironolactone 25 mg DAILY PO 09/04/24 10:00 09/05/24 10:08 25 MG Levothyroxine Sodium 150 mcg QAM@0600 PO 09/04/24 14:15 UNV Mirtazapine 15 mg HS PO 09/04/24 22:00 09/04/24 21:17 15 MG Levothyroxine Sodium 112 mcg QAM@0600 PO 09/05/24 06:00 09/05/24 05:35 112 MCG Examination: GENERAL:Normal, HEENT:Normal, NECK:Normal, LUNGS:Normal, CVS:Normal, ABDOMEN:Normal, MSK:Normal, SKIN:Normal, NEURO:Normal, :Normal laboratory and microbiology Laboratory Tests 09/04/24 05:33 09/03/24 09:02 Test 09/04/24 05:33 Range/Units Serum Glucose 76 74-106 mg/dL Microbiology Date/Time Source Procedure Growth Status 08/31/24 03:35 Nose MRSA Screen - Final Complete Problem List/Assessment/Plan Problem List/Assessment/Plan * Acute on chronic systolic heart failure: iv lasix, aldactone, dig * Hypothyroidism: check tsh, adjust dose * Status post AICD. * Non-STEMI likely type 2. * s/p covid 19 * mod/severe malnutrition: on tube feedings,mirtazepine advance care planning- full code- time spent 19 mins Plan discussed with: Patient My Orders My Orders Orders - SMITHA ALDRIDGE MD Procedure Category Date Status Time Mirtazapine Tablet PHA 09/04/24 In Process (Remeron Tablet) 22:00 Levothyroxine Tablet PHA 09/05/24 In Process (Synthroid Tablet) 06:00 Dietary Evaluation Review Comments: 1) Continue to monitor pt PO intake to meed at least 75% of meals 2) Consider TESSIE BID for wound 3) Continue current plan of care Expected Outcomes/Goals: 1) Pt appetite to improve 2) F/U in 3-5 days Date of Service: Sep 05, 2024 Billing Provider: SMITHA ALDRIDGE MD Common Visit Codes: [id number] INP/OBS CARE(HIGH) SMITHA ALDRIDGE MD Sep 05, 2024 12:46
--- NOTE | 2024-09-05 13:31 | DVHPN2 ---
Progress Note - Dictate Date Seen: Sep 05, 2024 Medical Necessity Reason Pt with a Central, PICC or Fol: No Subjective HFrEF ACUTE DILATED CM S/P AICD HTN NOW WITH MARKED ELEVATED BNP ACUTE HFrEF DCM EF <20% cachexia/ anorexia NORMAL CORONARIES EF <20% S/P MITRAL VALVE CLIP BILATERAL PLEURAL EFFUSION HX OF THORACENTESIS NOW WITH ACUTE DECOMPENSATION NO CLINICAL OR RADIOGRAPHIC EVIDENCE FOR PNEUMONIA INCREASE SYNTHROID TO 200 CORRECT HYPOKALEMIA PT ADMITTED TO [facility] FOR HEART TRANSPLANT CURRENTLY NOT A CANDIDATE BECAUSE OF CACHEXIA S/P G TUBE PLACEMENT FOR NUTRITIONAL SUPPORT ONCE PT HAS ADEQUATE IMPROVEMENT IN NUTRITIONAL STATUS AND STRENGTH PT CAN BE BECOME ELIBILE FOR HEART TRANSPLANT vital signs Vital Sign Date Time Temp Pulse Resp B/P (MAP) Pulse Ox O2 Delivery O2 Flow Rate FiO2 09/05/24 13:14 98.0 52 16 121/59 (79) 93 98.0 09/05/24 08:00 Room Air* 0 21 Total Intake and Output 09/04/24 09/04/24 09/05/24 15:00 23:00 07:00 Intake Total 200 ml 240 ml Balance 200 ml 240 ml medications Current Medications Medications Dose Ordered Sig/Tucker Route Start Time Stop Time Status Last Admin Dose Admin Nitroglycerin 0.4 mg Q5MINP PRN SL 08/31/24 11:45 Morphine Sulfate 2 mg Q30M PRN IV 08/31/24 11:45 Digoxin 0.125 mg DAILY PO 09/01/24 10:00 09/05/24 10:08 0.125 MG Ivabradine 5 mg BID PO 08/31/24 22:00 09/05/24 10:08 5 MG Enteral Nutritional Formula 240 ml QID PO 08/31/24 18:00 09/05/24 12:00 240 ML Apixaban 2.5 mg DAILY PO 08/31/24 15:21 09/05/24 10:08 2.5 MG Furosemide 20 mg DAILY IV 09/01/24 10:00 09/05/24 10:07 20 MG Potassium Chloride 20 meq DAILY PO 09/04/24 10:00 09/04/24 09:17 20 MEQ Spironolactone 25 mg DAILY PO 09/04/24 10:00 09/05/24 10:08 25 MG Levothyroxine Sodium 150 mcg QAM@0600 PO 09/04/24 14:15 UNV Mirtazapine 15 mg HS PO 09/04/24 22:00 09/04/24 21:17 15 MG Levothyroxine Sodium 112 mcg QAM@0600 PO 09/05/24 06:00 09/05/24 05:35 112 MCG laboratory and microbiology Laboratory Tests 09/04/24 05:33 09/03/24 09:02 Test 09/04/24 05:33 Range/Units Serum Glucose 76 74-106 mg/dL Problem List HFrEF ACUTE DILATED CM S/P AICD HTN NOW WITH MARKED ELEVATED BNP ACUTE HFrEF DCM EF <20% cachexia/ anorexia NORMAL CORONARIES EF <20% S/P MITRAL VALVE CLIP BILATERAL PLEURAL EFFUSION HX OF THORACENTESIS NOW WITH ACUTE DECOMPENSATION NO CLINICAL OR RADIOGRAPHIC EVIDENCE FOR PNEUMONIA INCREASE SYNTHROID TO 200 CORRECT HYPOKALEMIA PT ADMITTED TO [facility] FOR HEART TRANSPLANT CURRENTLY NOT A CANDIDATE BECAUSE OF CACHEXIA S/P G TUBE PLACEMENT FOR NUTRITIONAL SUPPORT ONCE PT HAS ADEQUATE IMPROVEMENT IN NUTRITIONAL STATUS AND STRENGTH PT CAN BE BECOME ELIBILE FOR HEART TRANSPLANT Assessment/Plan TITRATE ON MEDS PT INCREASE NUTRITIONAL SUPPLEMENT WITH DIG AND CORLANOR HEART RATE CONTROLED START MEGACE DIC PANEL CONSIDER BONE MARROW BX ITP R/O START MEGACE INCREASE SYNTHROID TO 150 lise Dietary Evaluation Review Comments: 1) Continue to monitor pt PO intake to meed at least 75% of meals 2) Consider TESSIE BID for wound 3) Continue current plan of care Expected Outcomes/Goals: 1) Pt appetite to improve 2) F/U in 3-5 days Plan discussed with: Patient KALLIE GLASGOW MD Sep 05, 2024 13:31
[2024-09-06] VITALS (8 sets, daily range): BP systolic 118–134; BP diastolic 54–68; PULSE 65–70; RESP 16–20; TEMP 97.3–98.4; O2SAT 90–96
--- NOTE | 2024-09-06 11:18 | DVHPN2 ---
Subjective The patient is seen and examined at bedside. The patient is weak. No other complaints. Reviewed: Care Plan, H&P, Labs, Medications, Previous Orders, Radiology Changes from previous H/P or p: No Changes Cardiovascular: Edema Objective Vitals Vital Signs Date Time Temp Pulse Resp B/P (MAP) Pulse Ox O2 Delivery O2 Flow Rate FiO2 09/06/24 09:49 128/68 09/06/24 09:49 65 09/06/24 09:00 97.7 18 96 97.7 09/06/24 08:00 Room Air* 0 21 Intake/Output Intake and Output 09/06/24 07:00 Intake Total 640 ml Balance 640 ml Intake Oral 640 ml # Voids 7 # Bowel Movements 2 General Appearance: Alert, Oriented X3, Cooperative, No acute distress HEENT: Atraumatic, PERRLA, EOMI, Mucous membr. moist/pink Neck: Supple Lungs: Clear to auscultation, Normal air movement Cardiovascular: Regular rate, Normal S1, Normal S2, No murmurs, Gallops, Rubs Abdomen: Normal bowel sounds, Soft, No tenderness Extremities: Normal pulses Neuro: Cranial nerves 3-12 NL Psych/Mental Status: Mental status NL Medications Current Medications Medications Dose Ordered Sig/Tucker Route Start Time Stop Time Status Last Admin Dose Admin Nitroglycerin 0.4 mg Q5MINP PRN SL 08/31/24 11:45 Morphine Sulfate 2 mg Q30M PRN IV 08/31/24 11:45 Digoxin 0.125 mg DAILY PO 09/01/24 10:00 09/06/24 09:49 0.125 MG Ivabradine 5 mg BID PO 08/31/24 22:00 09/06/24 09:50 5 MG Enteral Nutritional Formula 240 ml QID PO 08/31/24 18:00 09/05/24 12:00 240 ML Apixaban 2.5 mg DAILY PO 08/31/24 15:21 09/06/24 09:49 2.5 MG Furosemide 20 mg DAILY IV 09/01/24 10:00 09/06/24 09:49 20 MG Potassium Chloride 20 meq DAILY PO 09/04/24 10:00 09/06/24 09:49 20 MEQ Spironolactone 25 mg DAILY PO 09/04/24 10:00 09/06/24 09:48 25 MG Levothyroxine Sodium 150 mcg QAM@0600 PO 09/04/24 14:15 UNV Mirtazapine 15 mg HS PO 09/04/24 22:00 09/05/24 21:17 15 MG Levothyroxine Sodium 112 mcg QAM@0600 PO 09/05/24 06:00 09/06/24 05:45 112 MCG Ondansetron HCl 4 mg Q6HPRN PRN IV 09/05/24 14:30 Laboratory Results Laboratory Tests 09/03/24 09:02 09/04/24 05:33 Microbiology Microbiology Date/Time Source Procedure Growth Status 08/31/24 03:35 Nose MRSA Screen - Final Complete Labs and/or images reviewed: Labs reviewed by me Assessment/Plan Assessment/Plan * Acute on chronic systolic heart failure * Hypothyroidism * Status post AICD. * Non-STEMI likely type 2. * s/p covid 19 * mod/severe malnutrition Continuing current management. Continuing with IV Lasix and Aldactone and also digoxin Continuing with tube feeding and mirtazapine. Continuing with ensure to help with nutrition support Plan discussed with: Patient Date of Service: Sep 06, 2024 Billing Provider: CARLI MONTERROSO MD Common Visit Codes: [id number] INP/OBS CARE(HIGH) CARLI MONTERROSO MD Sep 06, 2024 11:18
--- NOTE | 2024-09-06 12:34 | DVHPN2 ---
Progress Note - Dictate Date Seen: Sep 06, 2024 Medical Necessity Reason Pt with a Central, PICC or Fol: No Subjective HFrEF ACUTE DILATED CM S/P AICD HTN NOW WITH MARKED ELEVATED BNP ACUTE HFrEF DCM EF <20% cachexia/ anorexia NORMAL CORONARIES EF <20% S/P MITRAL VALVE CLIP BILATERAL PLEURAL EFFUSION HX OF THORACENTESIS NOW WITH ACUTE DECOMPENSATION NO CLINICAL OR RADIOGRAPHIC EVIDENCE FOR PNEUMONIA INCREASE SYNTHROID TO 200 CORRECT HYPOKALEMIA PT ADMITTED TO [facility] FOR HEART TRANSPL[facility] CURRENTLY NOT A CANDIDATE BECAUSE OF CACHEXIA S/P G TUBE PLACEMENT FOR NUTRITIONAL SUPPORT ONCE PT HAS ADEQUATE IMPROVEMENT IN NUTRITIONAL STATUS AND STRENGTH PT CAN BE BECOME ELIBILE FOR HEART TRANSPLANT vital signs Vital Sign Date Time Temp Pulse Resp B/P (MAP) Pulse Ox O2 Delivery O2 Flow Rate FiO2 09/06/24 09:49 128/68 09/06/24 09:49 65 09/06/24 09:00 97.7 18 96 97.7 09/06/24 08:00 Room Air* 0 21 Total Intake and Output 09/05/24 09/05/24 09/06/24 15:00 23:00 07:00 Intake Total 400 ml 240 ml Balance 400 ml 240 ml medications Current Medications Medications Dose Ordered Sig/Tucker Route Start Time Stop Time Status Last Admin Dose Admin Nitroglycerin 0.4 mg Q5MINP PRN SL 08/31/24 11:45 Morphine Sulfate 2 mg Q30M PRN IV 08/31/24 11:45 Digoxin 0.125 mg DAILY PO 09/01/24 10:00 09/06/24 09:49 0.125 MG Ivabradine 5 mg BID PO 08/31/24 22:00 09/06/24 09:50 5 MG Enteral Nutritional Formula 240 ml QID PO 08/31/24 18:00 09/05/24 12:00 240 ML Apixaban 2.5 mg DAILY PO 08/31/24 15:21 09/06/24 09:49 2.5 MG Furosemide 20 mg DAILY IV 09/01/24 10:00 09/06/24 09:49 20 MG Potassium Chloride 20 meq DAILY PO 09/04/24 10:00 09/06/24 09:49 20 MEQ Spironolactone 25 mg DAILY PO 09/04/24 10:00 09/06/24 09:48 25 MG Levothyroxine Sodium 150 mcg QAM@0600 PO 09/04/24 14:15 UNV Mirtazapine 15 mg HS PO 09/04/24 22:00 09/05/24 21:17 15 MG Levothyroxine Sodium 112 mcg QAM@0600 PO 09/05/24 06:00 09/06/24 05:45 112 MCG Ondansetron HCl 4 mg Q6HPRN PRN IV 09/05/24 14:30 laboratory and microbiology Laboratory Tests 09/04/24 05:33 09/03/24 09:02 Test 09/04/24 05:33 Range/Units Serum Glucose 76 74-106 mg/dL Problem List HFrEF ACUTE DILATED CM S/P AICD HTN NOW WITH MARKED ELEVATED BNP ACUTE HFrEF DCM EF <20% cachexia/ anorexia NORMAL CORONARIES EF <20% S/P MITRAL VALVE CLIP BILATERAL PLEURAL EFFUSION HX OF THORACENTESIS NOW WITH ACUTE DECOMPENSATION NO CLINICAL OR RADIOGRAPHIC EVIDENCE FOR PNEUMONIA INCREASE SYNTHROID TO 200 CORRECT HYPOKALEMIA PT ADMITTED TO [facility] FOR [facility] TRANSPL[facility] CURRENTLY NOT A CANDIDATE BECAUSE OF CACHEXIA S/P G TUBE PLACEMENT FOR NUTRITIONAL SUPPORT ONCE PT HAS ADEQUATE IMPROVEMENT IN NUTRITIONAL STATUS AND STRENGTH PT CAN BE BECOME ELIBILE FOR HEART TRANSPLANT Assessment/Plan TITRATE ON MEDS PT INCREASE NUTRITIONAL SUPPLEMENT WITH DIG AND CORLANOR HEART RATE CONTROLED START MEGACE DIC PANEL CONSIDER BONE MARROW BX ITP R/O START MEGACE INCREASE SYNTHROID TO 150 lise START PT ON PROVIGIL OR NUVIGIL Dietary Evaluation Review Comments: 1) Continue to monitor pt PO intake to meed at least 75% of meals 2) Consider TESSIE BID for wound 3) Continue current plan of care Expected Outcomes/Goals: 1) Pt appetite to improve 2) F/U in 3-5 days Plan discussed with: Patient, Spouse Critical Care Time(min): 35 KALLIE GLSAGOW MD Sep 06, 2024 12:34
[2024-09-07] VITALS (8 sets, daily range): BP systolic 108–124; BP diastolic 55–69; PULSE 69–75; RESP 16–18; TEMP 97.4–97.8; O2SAT 92–97
--- NOTE | 2024-09-07 12:04 | DVHPN2 ---
Subjective The patient is seen and examined at bedside. Remained unchanged seen overnight. Still do not have any appetite. Reviewed: Care Plan, H&P, Labs, Medications, Previous Orders, Radiology Changes from previous H/P or p: No Changes Cardiovascular: Edema Objective Vitals Vital Signs Date Time Temp Pulse Resp B/P (MAP) Pulse Ox O2 Delivery O2 Flow Rate FiO2 09/07/24 10:16 69 09/07/24 10:15 108/62 09/07/24 09:00 97.4 16 95 97.4 09/06/24 20:00 Room Air* 0 21 Intake/Output Intake and Output 09/07/24 07:00 Intake Total 840 ml Balance 840 ml Intake Oral 840 ml # Voids 4 General Appearance: Alert, Cooperative, No acute distress HEENT: Atraumatic, PERRLA, EOMI, Mucous membr. moist/pink Neck: Supple Lungs: Clear to auscultation, Normal air movement Cardiovascular: Regular rate, Normal S1, Normal S2, No murmurs, Gallops, Rubs Abdomen: Normal bowel sounds, Soft, No tenderness Neuro: Cranial nerves 3-12 NL Psych/Mental Status: Mental status NL Medications Current Medications Medications Dose Ordered Sig/Tucker Route Start Time Stop Time Status Last Admin Dose Admin Nitroglycerin 0.4 mg Q5MINP PRN SL 08/31/24 11:45 Morphine Sulfate 2 mg Q30M PRN IV 08/31/24 11:45 Digoxin 0.125 mg DAILY PO 09/01/24 10:00 09/07/24 10:16 0.125 MG Ivabradine 5 mg BID PO 08/31/24 22:00 09/07/24 10:16 5 MG Enteral Nutritional Formula 240 ml QID PO 08/31/24 18:00 09/06/24 12:00 240 ML Apixaban 2.5 mg DAILY PO 08/31/24 15:21 09/07/24 10:16 2.5 MG Furosemide 20 mg DAILY IV 09/01/24 10:00 09/07/24 10:15 20 MG Potassium Chloride 20 meq DAILY PO 09/04/24 10:00 09/07/24 10:16 20 MEQ Spironolactone 25 mg DAILY PO 09/04/24 10:00 09/07/24 10:16 25 MG Levothyroxine Sodium 150 mcg QAM@0600 PO 09/04/24 14:15 UNV Mirtazapine 15 mg HS PO 09/04/24 22:00 09/06/24 21:11 15 MG Levothyroxine Sodium 112 mcg QAM@0600 PO 09/05/24 06:00 09/07/24 05:36 112 MCG Ondansetron HCl 4 mg Q6HPRN PRN IV 09/05/24 14:30 Laboratory Results Laboratory Tests 09/03/24 09:02 09/04/24 05:33 Microbiology Microbiology Date/Time Source Procedure Growth Status 08/31/24 03:35 Nose MRSA Screen - Final Complete Labs and/or images reviewed: Labs reviewed by me Assessment/Plan Assessment/Plan * Acute on chronic systolic heart failure * Hypothyroidism * Status post AICD. * Non-STEMI likely type 2. * s/p covid 19 * mod/severe malnutrition Continuing current management. Continuing with IV Lasix and Aldactone and also digoxin Continuing with tube feeding and mirtazapine. Continuing with ensure to help with nutrition support Plan discussed with: Patient Date of Service: Sep 07, 2024 Billing Provider: CARLI MONTERROSO MD Common Visit Codes: [id number] INP/OBS CARE(HIGH) CARLI MONTERROSO MD Sep 07, 2024 12:04
--- NOTE | 2024-09-07 14:18 | DVHPN2 ---
Progress Note - Dictate Date Seen: Sep 07, 2024 Medical Necessity Reason Pt with a Central, PICC or Fol: No Subjective HFrEF ACUTE DILATED CM S/P AICD HTN NOW WITH MARKED ELEVATED BNP ACUTE HFrEF DCM EF <20% cachexia/ anorexia NORMAL CORONARIES EF <20% S/P MITRAL VALVE CLIP BILATERAL PLEURAL EFFUSION HX OF THORACENTESIS NOW WITH ACUTE DECOMPENSATION NO CLINICAL OR RADIOGRAPHIC EVIDENCE FOR PNEUMONIA INCREASE SYNTHROID TO 200 CORRECT HYPOKALEMIA PT ADMITTED TO [facility] FOR HEART TRANSPLANT CURRENTLY NOT A CANDIDATE BECAUSE OF CACHEXIA S/P G TUBE PLACEMENT FOR NUTRITIONAL SUPPORT ONCE PT HAS ADEQUATE IMPROVEMENT IN NUTRITIONAL STATUS AND STRENGTH PT CAN BE BECOME ELIBILE FOR HEART TRANSPLANT vital signs Vital Sign Date Time Temp Pulse Resp B/P (MAP) Pulse Ox O2 Delivery O2 Flow Rate FiO2 09/07/24 14:04 97.8 71 18 118/69 (85) 95 97.8 09/07/24 08:10 Room Air* 0 21 Total Intake and Output 09/06/24 09/06/24 09/07/24 15:00 23:00 07:00 Intake Total 240 ml 600 ml Balance 240 ml 600 ml medications Current Medications Medications Dose Ordered Sig/Tucker Route Start Time Stop Time Status Last Admin Dose Admin Nitroglycerin 0.4 mg Q5MINP PRN SL 08/31/24 11:45 Morphine Sulfate 2 mg Q30M PRN IV 08/31/24 11:45 Digoxin 0.125 mg DAILY PO 09/01/24 10:00 09/07/24 10:16 0.125 MG Ivabradine 5 mg BID PO 08/31/24 22:00 09/07/24 10:16 5 MG Enteral Nutritional Formula 240 ml QID PO 08/31/24 18:00 09/06/24 12:00 240 ML Apixaban 2.5 mg DAILY PO 08/31/24 15:21 09/07/24 10:16 2.5 MG Furosemide 20 mg DAILY IV 09/01/24 10:00 09/07/24 10:15 20 MG Potassium Chloride 20 meq DAILY PO 09/04/24 10:00 09/07/24 10:16 20 MEQ Spironolactone 25 mg DAILY PO 09/04/24 10:00 09/07/24 10:16 25 MG Levothyroxine Sodium 150 mcg QAM@0600 PO 09/04/24 14:15 UNV Mirtazapine 15 mg HS PO 09/04/24 22:00 09/06/24 21:11 15 MG Levothyroxine Sodium 112 mcg QAM@0600 PO 09/05/24 06:00 09/07/24 05:36 112 MCG Ondansetron HCl 4 mg Q6HPRN PRN IV 09/05/24 14:30 laboratory and microbiology Laboratory Tests 09/04/24 05:33 09/03/24 09:02 Test 09/04/24 05:33 Range/Units Serum Glucose 76 74-106 mg/dL Problem List HFrEF ACUTE DILATED CM S/P AICD HTN NOW WITH MARKED ELEVATED BNP ACUTE HFrEF DCM EF <20% cachexia/ anorexia NORMAL CORONARIES EF <20% S/P MITRAL VALVE CLIP BILATERAL PLEURAL EFFUSION HX OF THORACENTESIS NOW WITH ACUTE DECOMPENSATION NO CLINICAL OR RADIOGRAPHIC EVIDENCE FOR PNEUMONIA INCREASE SYNTHROID TO 200 CORRECT HYPOKALEMIA PT ADMITTED TO [facility] FOR HEART TRANSPLANT CURRENTLY NOT A CANDIDATE BECAUSE OF CACHEXIA S/P G TUBE PLACEMENT FOR NUTRITIONAL SUPPORT ONCE PT HAS ADEQUATE IMPROVEMENT IN NUTRITIONAL STATUS AND STRENGTH PT CAN BE BECOME ELIBILE FOR HEART TRANSPLANT Assessment/Plan TITRATE ON MEDS PT INCREASE NUTRITIONAL SUPPLEMENT WITH DIG AND CORLANOR HEART RATE CONTROLED START MEGACE DIC PANEL CONSIDER BONE MARROW BX ITP R/O START MEGACE INCREASE SYNTHROID TO 150 lise START PT ON PROVIGIL OR NUVIGIL Dietary Evaluation Review Comments: 1) Continue to monitor pt PO intake to meed at least 75% of meals 2) Consider TESSIE BID for wound 3) Continue current plan of care Expected Outcomes/Goals: 1) Pt appetite to improve 2) F/U in 3-5 days Plan discussed with: Patient KALLIE GLASGOW MD Sep 07, 2024 14:18
[2024-09-08] VITALS (7 sets, daily range): BP systolic 113–124; BP diastolic 50–63; PULSE 70–75; RESP 16–20; TEMP 97.5–98.7; O2SAT 94–97
--- NOTE | 2024-09-08 14:37 | DVHPN2 ---
Subjective The patient seen and examined at bedside. Still weak and tired. The patient at bedside. Reviewed: Care Plan, H&P, Labs, Medications, Previous Orders Changes from previous H/P or p: No Changes Cardiovascular: Edema Objective Vitals Vital Signs Date Time Temp Pulse Resp B/P (MAP) Pulse Ox O2 Delivery O2 Flow Rate FiO2 09/08/24 09:44 117/61 09/08/24 09:43 70 09/08/24 08:00 19 97 Room Air* 0 21 09/08/24 05:00 97.5 97.5 Intake/Output Intake and Output 09/08/24 07:00 Intake Total 1680 ml Balance 1680 ml Intake Oral 1680 ml # Voids 4 General Appearance: Alert, Oriented X3, Cooperative, No acute distress HEENT: Atraumatic, PERRLA, EOMI Neck: Supple Lungs: Clear to auscultation, Normal air movement Cardiovascular: Regular rate, Normal S1, Normal S2 Abdomen: Normal bowel sounds, Soft, No tenderness Neuro: Cranial nerves 3-12 NL Psych/Mental Status: Mental status NL Medications Current Medications Medications Dose Ordered Sig/Tucker Route Start Time Stop Time Status Last Admin Dose Admin Nitroglycerin 0.4 mg Q5MINP PRN SL 08/31/24 11:45 Morphine Sulfate 2 mg Q30M PRN IV 08/31/24 11:45 Digoxin 0.125 mg DAILY PO 09/01/24 10:00 09/08/24 09:43 0.125 MG Ivabradine 5 mg BID PO 08/31/24 22:00 09/08/24 09:45 5 MG Enteral Nutritional Formula 240 ml QID PO 08/31/24 18:00 09/07/24 18:18 240 ML Apixaban 2.5 mg DAILY PO 08/31/24 15:21 09/08/24 09:44 2.5 MG Furosemide 20 mg DAILY IV 09/01/24 10:00 09/08/24 09:44 20 MG Potassium Chloride 20 meq DAILY PO 09/04/24 10:00 09/08/24 09:43 20 MEQ Spironolactone 25 mg DAILY PO 09/04/24 10:00 09/08/24 09:43 25 MG Levothyroxine Sodium 150 mcg QAM@0600 PO 09/04/24 14:15 UNV Mirtazapine 15 mg HS PO 09/04/24 22:00 09/07/24 21:21 15 MG Levothyroxine Sodium 112 mcg QAM@0600 PO 09/05/24 06:00 09/08/24 05:20 112 MCG Ondansetron HCl 4 mg Q6HPRN PRN IV 09/05/24 14:30 Laboratory Results Laboratory Tests 09/03/24 09:02 09/04/24 05:33 Microbiology Microbiology Date/Time Source Procedure Growth Status 08/31/24 03:35 Nose MRSA Screen - Final Complete Labs and/or images reviewed: Labs reviewed by me Assessment/Plan Assessment/Plan * Acute on chronic systolic heart failure * Hypothyroidism * Status post AICD. * Non-STEMI likely type 2. * s/p covid 19 * mod/severe malnutrition Continuing current management. Continuing with IV Lasix and Aldactone and also digoxin Continuing with tube feeding and mirtazapine. Continuing with ensure to help with nutrition support Plan discussed with: Patient Date of Service: Sep 08, 2024 Billing Provider: CARLI MONTERROSO MD Common Visit Codes: [id number] INP/OBS CARE(HIGH) CARLI MONTERROSO MD Sep 08, 2024 14:37
[2024-09-09] VITALS (7 sets, daily range): BP systolic 107–122; BP diastolic 53–60; PULSE 70–74; RESP 14–18; TEMP 97.5–98.1; O2SAT 93–97
[2024-09-09] MEDS: ONDANSETRON HCL 4 MG/2 ML VIAL IV PRN (09:50)
[2024-09-09 22:58] LABS: Urine Bacteria None Seen /hpf (None Seen)
--- NOTE | 2024-09-09 23:08 | DVHPN2 ---
Subjective The patient seen and examined at bedside. Remain weak Reviewed: Care Plan, H&P, Labs, Medications, Previous Orders, Radiology Changes from previous H/P or p: No Changes Cardiovascular: Edema Objective Vitals Vital Signs Date Time Temp Pulse Resp B/P (MAP) Pulse Ox O2 Delivery O2 Flow Rate FiO2 09/09/24 20:34 97.5 70 16 122/60 (80) 93 97.5 09/09/24 08:00 Room Air* 0 21 Intake/Output Intake and Output 09/09/24 07:00 Intake Total 1280 ml Output Total 900 ml Balance 380 ml Intake Oral 1280 ml Output Urine Total 900 ml # Voids 1 General Appearance: Alert, Oriented X3, Cooperative, No acute distress HEENT: Atraumatic, PERRLA, EOMI, Mucous membr. moist/pink Neck: Supple Lungs: Clear to auscultation, Normal air movement Cardiovascular: Regular rate, Normal S1, Normal S2, No murmurs, Gallops, Rubs Abdomen: Normal bowel sounds, Soft, No tenderness Neuro: Cranial nerves 3-12 NL Psych/Mental Status: Mental status NL Medications Current Medications Medications Dose Ordered Sig/Tucker Route Start Time Stop Time Status Last Admin Dose Admin Nitroglycerin 0.4 mg Q5MINP PRN SL 08/31/24 11:45 Digoxin 0.125 mg DAILY PO 09/01/24 10:00 09/09/24 09:46 0.125 MG Ivabradine 5 mg BID PO 08/31/24 22:00 09/09/24 21:00 5 MG Enteral Nutritional Formula 240 ml QID PO 08/31/24 18:00 09/09/24 12:01 240 ML Apixaban 2.5 mg DAILY PO 08/31/24 15:21 09/09/24 09:45 2.5 MG Furosemide 20 mg DAILY IV 09/01/24 10:00 09/09/24 12:01 20 MG Potassium Chloride 20 meq DAILY PO 09/04/24 10:00 09/09/24 09:45 20 MEQ Spironolactone 25 mg DAILY PO 09/04/24 10:00 09/09/24 11:59 25 MG Levothyroxine Sodium 150 mcg QAM@0600 PO 09/04/24 14:15 UNV Mirtazapine 15 mg HS PO 09/04/24 22:00 09/09/24 20:57 15 MG Levothyroxine Sodium 112 mcg QAM@0600 PO 09/05/24 06:00 09/09/24 06:15 112 MCG Ondansetron HCl 4 mg Q6HPRN PRN IV 09/05/24 14:30 09/09/24 09:50 4 MG Laboratory Results Laboratory Tests 09/03/24 09:02 09/04/24 05:33 Urinalysis Test 09/09/24 22:45 Urine Color Pending Urine Clarity Pending Urine pH Pending Urine Specific [place] Pending Urine Protein Pending Urine Ketones Pending Urine Blood Pending Urine Nitrite Pending Urine Bilirubin Pending Urine Urobilinogen Pending Urine Leukocyte Esterase Pending Urine RBC Pending Urine WBC Pending Urine Squamous Epithelial Cells Pending Urine Bacteria Pending Urine Glucose Pending Microbiology Microbiology Date/Time Source Procedure Growth Status 08/31/24 03:35 Nose MRSA Screen - Final Complete Labs and/or images reviewed: Labs reviewed by me Assessment/Plan Assessment/Plan * Acute on chronic systolic heart failure * Hypothyroidism * Status post AICD. * Non-STEMI likely type 2. * s/p covid 19 * mod/severe malnutrition Continuing current management. Continuing with IV Lasix and Aldactone and also digoxin Continuing with tube feeding and mirtazapine. Continuing with ensure to help with nutrition support Encourage the patient to work with PT, to be out of bed and ambulate. Plan discussed with: Patient My Orders Orders - CARLI MONTERROSO MD Procedure Category Date Status Time Communication Order ORDERS 09/09/24 Transmitted 19:09 Date of Service: Sep 09, 2024 Billing Provider: CARLI MONTERROSO MD Common Visit Codes: [id number] INP/OBS CARE(HIGH) Date of Service: Sep 09, 2024 Billing Provider: CARLI MONTERROSO MD Common Visit Codes: [id number] INP/OBS CARE(HIGH) CARLI MONTERROSO MD Sep 09, 2024 23:08
[2024-09-09 23:24] LABS: Urine Blood Negative /uL (Negative); Urine Clarity Clear (Clear); Urine Color Yellow (Yellow); Urine Mucus FEW (None Seen); Urine Protein, UAD 1+ (Negative); Urine Specific Gravity 1.023 (1.001-1.035); Urine Urobilinogen 6 mg/dL (Negative); Urine WBC 4 /hpf (0 - 5); Urine pH 6.5 (5.0-9.0)
[2024-09-10] VITALS (8 sets, daily range): BP systolic 24–115; BP diastolic 55–59; PULSE 55–70; RESP 15–18; TEMP 97.4–98.1; O2SAT 91–96
--- NOTE | 2024-09-10 11:34 | DVHPN2 ---
Subjective The patient seen and examined at bedside. No complains. Reviewed: Care Plan, H&P, Labs, Medications, Previous Orders, Radiology Changes from previous H/P or p: No Changes Cardiovascular: Edema Objective Vitals Vital Signs Date Time Temp Pulse Resp B/P (MAP) Pulse Ox O2 Delivery O2 Flow Rate FiO2 09/10/24 09:48 98.1 70 18 113/58 (76) 93 98.1 09/10/24 08:14 Room Air* 0 21 Intake/Output Intake and Output 09/10/24 07:00 Intake Total 930 ml Balance 930 ml Intake Oral 930 ml # Voids 4 General Appearance: Alert, Oriented X3, Cooperative, No acute distress HEENT: Atraumatic, PERRLA, EOMI, Mucous membr. moist/pink Neck: Supple Lungs: Clear to auscultation, Normal air movement Cardiovascular: Regular rate, Normal S1, Normal S2, No murmurs, Gallops, Rubs Abdomen: Normal bowel sounds, Soft, No tenderness Neuro: Cranial nerves 3-12 NL Psych/Mental Status: Mental status NL Medications Current Medications Medications Dose Ordered Sig/Tucker Route Start Time Stop Time Status Last Admin Dose Admin Nitroglycerin 0.4 mg Q5MINP PRN SL 08/31/24 11:45 Digoxin 0.125 mg DAILY PO 09/01/24 10:00 09/10/24 09:12 0.125 MG Ivabradine 5 mg BID PO 08/31/24 22:00 09/10/24 09:13 5 MG Enteral Nutritional Formula 240 ml QID PO 08/31/24 18:00 09/09/24 12:01 240 ML Apixaban 2.5 mg DAILY PO 08/31/24 15:21 09/10/24 09:13 2.5 MG Furosemide 20 mg DAILY IV 09/01/24 10:00 09/10/24 09:12 20 MG Potassium Chloride 20 meq DAILY PO 09/04/24 10:00 09/10/24 09:13 20 MEQ Spironolactone 25 mg DAILY PO 09/04/24 10:00 09/10/24 09:13 25 MG Levothyroxine Sodium 150 mcg QAM@0600 PO 09/04/24 14:15 UNV Mirtazapine 15 mg HS PO 09/04/24 22:00 09/09/24 20:57 15 MG Levothyroxine Sodium 112 mcg QAM@0600 PO 09/05/24 06:00 09/10/24 05:37 112 MCG Ondansetron HCl 4 mg Q6HPRN PRN IV 09/05/24 14:30 09/09/24 09:50 4 MG Laboratory Results Laboratory Tests 09/03/24 09:02 09/04/24 05:33 Urinalysis Test 09/09/24 22:45 Urine Color Yellow (Yellow) Urine Clarity Clear (Clear) Urine pH 6.5 (5.0-9.0) Urine Specific [place] 1.023 (1.001-1.035) Urine Protein 1+ (Negative) H Urine Ketones Negative (Negative) Urine Blood Negative /uL (Negative) Urine Nitrite Negative (Negative) Urine Bilirubin Negative (Negative) Urine Urobilinogen 6 mg/dL (Negative) Urine Leukocyte Esterase Negative /uL (Negative) Urine RBC 1 /hpf (0 - 4) Urine WBC 4 /hpf (0 - 5) Urine Squamous Epithelial Cells Few /hpf (<5) Urine Bacteria None seen /hpf (None Seen) Urine Mucus Few (None Seen) Urine Glucose Normal mg/dL (Normal) Microbiology Microbiology Date/Time Source Procedure Growth Status 08/31/24 03:35 Nose MRSA Screen - Final Complete Labs and/or images reviewed: Labs reviewed by me Assessment/Plan Assessment/Plan * Acute on chronic systolic heart failure * Hypothyroidism * Status post AICD. * Non-STEMI likely type 2. * s/p covid 19 * mod/severe malnutrition Continuing current management. Continuing with IV Lasix and Aldactone and also digoxin Continuing with tube feeding and mirtazapine. Continuing with ensure to help with nutrition support Encourage the patient to work with PT, to be out of bed and ambulate. Plan discussed with: Patient My Orders Orders - CARLI MONTERROSO MD Procedure Category Date Status Time Communication Order ORDERS 09/09/24 Transmitted 19:09 Date of Service: Sep 10, 2024 Billing Provider: CARLI MONTERROSO MD Common Visit Codes: [id number] INP/OBS CARE(HIGH) CARLI MONTERROSO MD Sep 10, 2024 11:34
--- NOTE | 2024-09-10 13:49 | DVHPN2 ---
Progress Note - Dictate Date Seen: Sep 10, 2024 Medical Necessity Reason Pt with a Central, PICC or Fol: No Subjective HFrEF ACUTE DILATED CM S/P AICD HTN NOW WITH MARKED ELEVATED BNP ACUTE HFrEF DCM EF <20% cachexia/ anorexia NORMAL CORONARIES EF <20% S/P MITRAL VALVE CLIP BILATERAL PLEURAL EFFUSION HX OF THORACENTESIS NOW WITH ACUTE DECOMPENSATION NO CLINICAL OR RADIOGRAPHIC EVIDENCE FOR PNEUMONIA INCREASE SYNTHROID TO 200 CORRECT HYPOKALEMIA PT ADMITTED TO [facility] FOR HEART TRANSPLANT CURRENTLY NOT A CANDIDATE BECAUSE OF CACHEXIA S/P G TUBE PLACEMENT FOR NUTRITIONAL SUPPORT ONCE PT HAS ADEQUATE IMPROVEMENT IN NUTRITIONAL STATUS AND STRENGTH PT CAN BE BECOME ELIBILE FOR HEART TRANSPLANT vital signs Vital Sign Date Time Temp Pulse Resp B/P (MAP) Pulse Ox O2 Delivery O2 Flow Rate FiO2 09/10/24 13:32 97.4 66 18 106/55 (72) 95 97.4 09/10/24 08:14 Room Air* 0 21 Total Intake and Output 09/09/24 09/09/24 09/10/24 15:00 23:00 07:00 Intake Total 100 ml 430 ml 400 ml Balance 100 ml 430 ml 400 ml medications Current Medications Medications Dose Ordered Sig/Tucker Route Start Time Stop Time Status Last Admin Dose Admin Nitroglycerin 0.4 mg Q5MINP PRN SL 08/31/24 11:45 Digoxin 0.125 mg DAILY PO 09/01/24 10:00 09/10/24 09:12 0.125 MG Ivabradine 5 mg BID PO 08/31/24 22:00 09/10/24 09:13 5 MG Enteral Nutritional Formula 240 ml QID PO 08/31/24 18:00 09/09/24 12:01 240 ML Apixaban 2.5 mg DAILY PO 08/31/24 15:21 09/10/24 09:13 2.5 MG Furosemide 20 mg DAILY IV 09/01/24 10:00 09/10/24 09:12 20 MG Potassium Chloride 20 meq DAILY PO 09/04/24 10:00 09/10/24 09:13 20 MEQ Spironolactone 25 mg DAILY PO 09/04/24 10:00 09/10/24 09:13 25 MG Levothyroxine Sodium 150 mcg QAM@0600 PO 09/04/24 14:15 UNV Mirtazapine 15 mg HS PO 09/04/24 22:00 09/09/24 20:57 15 MG Levothyroxine Sodium 112 mcg QAM@0600 PO 09/05/24 06:00 09/10/24 05:37 112 MCG Ondansetron HCl 4 mg Q6HPRN PRN IV 09/05/24 14:30 09/09/24 09:50 4 MG laboratory and microbiology Laboratory Tests 09/04/24 05:33 09/03/24 09:02 Test 09/04/24 05:33 Range/Units Serum Glucose 76 74-106 mg/dL Problem List HFrEF ACUTE DILATED CM S/P AICD HTN NOW WITH MARKED ELEVATED BNP ACUTE HFrEF DCM EF <20% cachexia/ anorexia NORMAL CORONARIES EF <20% S/P MITRAL VALVE CLIP BILATERAL PLEURAL EFFUSION HX OF THORACENTESIS NOW WITH ACUTE DECOMPENSATION NO CLINICAL OR RADIOGRAPHIC EVIDENCE FOR PNEUMONIA INCREASE SYNTHROID TO 200 CORRECT HYPOKALEMIA PT ADMITTED TO [facility] FOR HEART TRANSPLANT CURRENTLY NOT A CANDIDATE BECAUSE OF CACHEXIA S/P G TUBE PLACEMENT FOR NUTRITIONAL SUPPORT ONCE PT HAS ADEQUATE IMPROVEMENT IN NUTRITIONAL STATUS AND STRENGTH PT CAN BE BECOME ELIBILE FOR HEART TRANSPLANT Assessment/Plan TITRATE ON MEDS PT INCREASE NUTRITIONAL SUPPLEMENT WITH DIG AND CORLANOR HEART RATE CONTROLED START MEGACE DIC PANEL CONSIDER BONE MARROW BX ITP R/O START MEGACE INCREASE SYNTHROID TO 150 lise START PT ON PROVIGIL OR NUVIGIL Dietary Evaluation Review Comments: 1) Continue to monitor pt PO intake to meed at least 75% of meals 2) Consider TESSIE BID for wound 3) Continue current plan of care Expected Outcomes/Goals: 1) Pt appetite to improve 2) F/U in 3-5 days Plan discussed with: Patient KALLIE GLASGOW MD Sep 10, 2024 13:49
[2024-09-11] VITALS (9 sets, daily range): BP systolic 99–123; BP diastolic 49–66; PULSE 69–76; RESP 14–18; TEMP 98–98.6; O2SAT 92–96
[2024-09-11] MEDS: ARMODAFINIL 100 MG PO SCH (06:29)
--- NOTE | 2024-09-11 10:32 | DVHPN2 ---
Progress Note - Dictate Date Seen: Sep 11, 2024 Medical Necessity Reason Pt with a Central, PICC or Fol: No Subjective HFrEF ACUTE DILATED CM S/P AICD HTN NOW WITH MARKED ELEVATED BNP ACUTE HFrEF DCM EF <20% cachexia/ anorexia NORMAL CORONARIES EF <20% S/P MITRAL VALVE CLIP BILATERAL PLEURAL EFFUSION HX OF THORACENTESIS NOW WITH ACUTE DECOMPENSATION NO CLINICAL OR RADIOGRAPHIC EVIDENCE FOR PNEUMONIA INCREASE SYNTHROID TO 200 CORRECT HYPOKALEMIA PT ADMITTED TO [facility] EVALUATED FOR HEART TRANSPLANT CURRENTLY NOT A CANDIDATE BECAUSE OF CACHEXIA S/P G TUBE PLACEMENT FOR NUTRITIONAL SUPPORT ONCE PT HAS ADEQUATE IMPROVEMENT IN NUTRITIONAL STATUS AND STRENGTH PT CAN BE BECOME ELIBILE FOR HEART TRANSPLANT vital signs Vital Sign Date Time Temp Pulse Resp B/P (MAP) Pulse Ox O2 Delivery O2 Flow Rate FiO2 09/11/24 09:02 106/55 09/11/24 09:02 69 09/11/24 09:00 98.6 14 94 98.6 09/11/24 07:48 Room Air* 0 21 Total Intake and Output 09/10/24 09/10/24 09/11/24 14:59 22:59 06:59 Intake Total 120 ml 250 ml Output Total 0 ml Balance 120 ml 250 ml medications Current Medications Medications Dose Ordered Sig/Tucker Route Start Time Stop Time Status Last Admin Dose Admin Nitroglycerin 0.4 mg Q5MINP PRN SL 08/31/24 11:45 Digoxin 0.125 mg DAILY PO 09/01/24 10:00 09/11/24 09:02 0.125 MG Ivabradine 5 mg BID PO 08/31/24 22:00 09/11/24 09:03 5 MG Enteral Nutritional Formula 240 ml QID PO 08/31/24 18:00 09/09/24 12:01 240 ML Apixaban 2.5 mg DAILY PO 08/31/24 15:21 09/11/24 09:02 2.5 MG Furosemide 20 mg DAILY IV 09/01/24 10:00 09/11/24 09:02 20 MG Potassium Chloride 20 meq DAILY PO 09/04/24 10:00 09/11/24 09:02 20 MEQ Spironolactone 25 mg DAILY PO 09/04/24 10:00 09/11/24 09:03 25 MG Levothyroxine Sodium 150 mcg QAM@0600 PO 09/04/24 14:15 UNV Mirtazapine 15 mg HS PO 09/04/24 22:00 09/10/24 22:33 15 MG Levothyroxine Sodium 112 mcg QAM@0600 PO 09/05/24 06:00 09/11/24 06:30 112 MCG Ondansetron HCl 4 mg Q6HPRN PRN IV 09/05/24 14:30 09/10/24 15:16 4 MG Patient Own Medication 100 mg QAM PO 09/11/24 07:00 laboratory and microbiology Laboratory Tests 09/04/24 05:33 09/03/24 09:02 Test 09/04/24 05:33 Range/Units Serum Glucose 76 74-106 mg/dL Problem List HFrEF ACUTE DILATED CM S/P AICD HTN NOW WITH MARKED ELEVATED BNP ACUTE HFrEF DCM EF <20% cachexia/ anorexia NORMAL CORONARIES EF <20% S/P MITRAL VALVE CLIP BILATERAL PLEURAL EFFUSION HX OF THORACENTESIS NOW WITH ACUTE DECOMPENSATION NO CLINICAL OR RADIOGRAPHIC EVIDENCE FOR PNEUMONIA INCREASE SYNTHROID TO 200 CORRECT HYPOKALEMIA PT ADMITTED TO [facility] EVALUATED FOR HEART TRANSPLANT CURRENTLY NOT A CANDIDATE BECAUSE OF CACHEXIA S/P G TUBE PLACEMENT FOR NUTRITIONAL SUPPORT ONCE PT HAS ADEQUATE IMPROVEMENT IN NUTRITIONAL STATUS AND STRENGTH PT CAN BE BECOME ELIBILE FOR HEART TRANSPLANT Assessment/Plan TITRATE ON MEDS PT INCREASE NUTRITIONAL SUPPLEMENT WITH DIG AND CORLANOR HEART RATE CONTROLED START MEGACE DIC PANEL CONSIDER BONE MARROW BX ITP R/O START MEGACE INCREASE SYNTHROID TO 150 lise START PT ON PROVIGIL OR NUVIGIL Dietary Evaluation Review Comments: 1) Continue to monitor pt PO intake to meed at least 75% of meals 2) Consider TESSIE BID for wound 3) Continue current plan of care Expected Outcomes/Goals: 1) Pt appetite to improve 2) F/U in 3-5 days Plan discussed with: Patient KALLIE GLASGOW MD Sep 11, 2024 10:32
--- NOTE | 2024-09-11 13:53 | DVHPN2 ---
Reviewed: Care Plan, H&P, Labs, Medications, Previous Orders, Radiology Changes from previous H/P or p: No Changes General: Per HPI Cardiovascular: Edema Objective Vitals Vital Signs Date Time Temp Pulse Resp B/P (MAP) Pulse Ox O2 Delivery O2 Flow Rate FiO2 09/11/24 09:02 106/55 09/11/24 09:02 69 09/11/24 09:00 98.6 14 94 98.6 09/11/24 07:48 Room Air* 0 21 Intake/Output Intake and Output 09/11/24 07:00 Intake Total 370 ml Output Total 0 ml Balance 370 ml Intake Oral 370 ml Output Urine Total 0 ml # Voids 2 Medications Current Medications Medications Dose Ordered Sig/Tucker Route Start Time Stop Time Status Last Admin Dose Admin Nitroglycerin 0.4 mg Q5MINP PRN SL 08/31/24 11:45 Digoxin 0.125 mg DAILY PO 09/01/24 10:00 09/11/24 09:02 0.125 MG Ivabradine 5 mg BID PO 08/31/24 22:00 09/11/24 09:03 5 MG Enteral Nutritional Formula 240 ml QID PO 08/31/24 18:00 09/09/24 12:01 240 ML Apixaban 2.5 mg DAILY PO 08/31/24 15:21 09/11/24 09:02 2.5 MG Furosemide 20 mg DAILY IV 09/01/24 10:00 09/11/24 09:02 20 MG Potassium Chloride 20 meq DAILY PO 09/04/24 10:00 09/11/24 09:02 20 MEQ Spironolactone 25 mg DAILY PO 09/04/24 10:00 09/11/24 09:03 25 MG Levothyroxine Sodium 150 mcg QAM@0600 PO 09/04/24 14:15 UNV Mirtazapine 15 mg HS PO 09/04/24 22:00 09/10/24 22:33 15 MG Levothyroxine Sodium 112 mcg QAM@0600 PO 09/05/24 06:00 09/11/24 06:30 112 MCG Ondansetron HCl 4 mg Q6HPRN PRN IV 09/05/24 14:30 09/11/24 11:46 4 MG Patient Own Medication 100 mg QAM PO 09/11/24 07:00 Laboratory Results Laboratory Tests 09/03/24 09:02 09/04/24 05:33 Urinalysis Test 09/09/24 22:45 Urine Color Yellow (Yellow) Urine Clarity Clear (Clear) Urine pH 6.5 (5.0-9.0) Urine Specific [place] 1.023 (1.001-1.035) Urine Protein 1+ (Negative) H Urine Ketones Negative (Negative) Urine Blood Negative /uL (Negative) Urine Nitrite Negative (Negative) Urine Bilirubin Negative (Negative) Urine Urobilinogen 6 mg/dL (Negative) Urine Leukocyte Esterase Negative /uL (Negative) Urine RBC 1 /hpf (0 - 4) Urine WBC 4 /hpf (0 - 5) Urine Squamous Epithelial Cells Few /hpf (<5) Urine Bacteria None seen /hpf (None Seen) Urine Mucus Few (None Seen) Urine Glucose Normal mg/dL (Normal) Microbiology Microbiology Date/Time Source Procedure Growth Status 08/31/24 03:35 Nose MRSA Screen - Final Complete Assessment/Plan Assessment/Plan ACUTE HFrEF DCM EF <20% cachexia/ anorexia * Acute on chronic systolic heart failure * Hypothyroidism * Status post AICD. * Non-STEMI likely type 2. * s/p covid 19 * mod/severe malnutrition Continuing current management. Continuing with IV Lasix and Aldactone and also digoxin Continuing with tube feeding and mirtazapine. Continuing with ensure to help with nutrition support Encourage the patient to work with PT, to be out of bed and ambulate. possible HLOC Plan discussed with: Patient Date of Service: Sep 11, 2024 Billing Provider: KIMBERLY VALENTINO DO Common Visit Codes: [id number] INP/OBS CARE(HIGH) KIMBERLY VALENTINO DO Sep 11, 2024 13:53
[2024-09-12] VITALS (8 sets, daily range): BP systolic 118–131; BP diastolic 54–71; PULSE 68–70; RESP 16–20; TEMP 97.6–98.4; O2SAT 91–98
[2024-09-12] MEDS ORDERED: ARMODAFINIL 150 MG TAB PO SCH (12:26)
--- NOTE | 2024-09-12 12:46 | DVHPN2 ---
Reviewed: Care Plan, H&P, Labs, Medications, Previous Orders, Radiology Changes from previous H/P or p: No Changes General: Per HPI Cardiovascular: Edema Objective Vitals Vital Signs Date Time Temp Pulse Resp B/P (MAP) Pulse Ox O2 Delivery O2 Flow Rate FiO2 09/12/24 12:30 97.9 68 20 123/71 (88) 95 97.9 09/12/24 08:00 Room Air* 0 21 Intake/Output Intake and Output 09/12/24 07:00 Intake Total 800 ml Output Total 750 ml Balance 50 ml Intake Oral 800 ml Output Urine Total 750 ml # Voids 4 Medications Current Medications Medications Dose Ordered Sig/Tucker Route Start Time Stop Time Status Last Admin Dose Admin Nitroglycerin 0.4 mg Q5MINP PRN SL 08/31/24 11:45 Digoxin 0.125 mg DAILY PO 09/01/24 10:00 09/12/24 10:13 0.125 MG Ivabradine 5 mg BID PO 08/31/24 22:00 09/12/24 10:34 5 MG Enteral Nutritional Formula 240 ml QID PO 08/31/24 18:00 09/12/24 06:30 240 ML Apixaban 2.5 mg DAILY PO 08/31/24 15:21 09/12/24 10:13 2.5 MG Furosemide 20 mg DAILY IV 09/01/24 10:00 09/12/24 10:13 20 MG Potassium Chloride 20 meq DAILY PO 09/04/24 10:00 09/12/24 10:12 20 MEQ Spironolactone 25 mg DAILY PO 09/04/24 10:00 09/12/24 10:12 25 MG Levothyroxine Sodium 150 mcg QAM@0600 PO 09/04/24 14:15 UNV Mirtazapine 15 mg HS PO 09/04/24 22:00 09/11/24 21:46 15 MG Levothyroxine Sodium 112 mcg QAM@0600 PO 09/05/24 06:00 09/12/24 05:49 112 MCG Ondansetron HCl 4 mg Q6HPRN PRN IV 09/05/24 14:30 09/12/24 06:47 4 MG Armodafinil 150 mg QAM@08 PO 09/13/24 08:00 Laboratory Results Laboratory Tests 09/03/24 09:02 09/04/24 05:33 Urinalysis Test 09/09/24 22:45 Urine Color Yellow (Yellow) Urine Clarity Clear (Clear) Urine pH 6.5 (5.0-9.0) Urine Specific [place] 1.023 (1.001-1.035) Urine Protein 1+ (Negative) H Urine Ketones Negative (Negative) Urine Blood Negative /uL (Negative) Urine Nitrite Negative (Negative) Urine Bilirubin Negative (Negative) Urine Urobilinogen 6 mg/dL (Negative) Urine Leukocyte Esterase Negative /uL (Negative) Urine RBC 1 /hpf (0 - 4) Urine WBC 4 /hpf (0 - 5) Urine Squamous Epithelial Cells Few /hpf (<5) Urine Bacteria None seen /hpf (None Seen) Urine Mucus Few (None Seen) Urine Glucose Normal mg/dL (Normal) Microbiology Microbiology Date/Time Source Procedure Growth Status 08/31/24 03:35 Nose MRSA Screen - Final Complete Assessment/Plan Assessment/Plan ACUTE HFrEF DCM EF <20% cachexia/ anorexia * Acute on chronic systolic heart failure * Hypothyroidism * Status post AICD. * Non-STEMI likely type 2. * s/p covid 19 * mod/severe malnutrition Continuing current management. Continuing with IV Lasix and Aldactone and also digoxin Continuing with tube feeding and mirtazapine. Continuing with ensure to help with nutrition support Encourage the patient to work with PT, to be out of bed and ambulate. possible HLOC Plan discussed with: Patient My Orders Orders - KIMBERLY VALENTINO DO Procedure Category Date Status Time Armodafinil (Nuvigil) PHA 09/13/24 In Process 08:00 Date of Service: Sep 12, 2024 Billing Provider: KIMBERLY VALENTINO DO Common Visit Codes: [id number] INP/OBS CARE(HIGH) KIMBERLY VALENTINO DO Sep 12, 2024 12:46
--- NOTE | 2024-09-12 12:54 | DVHPN2 ---
Progress Note - Dictate Date Seen: Sep 12, 2024 Medical Necessity Reason Pt with a Central, PICC or Fol: No Subjective HFrEF ACUTE DILATED CM S/P AICD HTN NOW WITH MARKED ELEVATED BNP ACUTE HFrEF DCM EF <20% cachexia/ anorexia NORMAL CORONARIES EF <20% S/P MITRAL VALVE CLIP BILATERAL PLEURAL EFFUSION HX OF THORACENTESIS NOW WITH ACUTE DECOMPENSATION NO CLINICAL OR RADIOGRAPHIC EVIDENCE FOR PNEUMONIA INCREASE SYNTHROID TO 200 CORRECT HYPOKALEMIA PT ADMITTED TO [facility]ATED FOR HEART TRANSPLANT CURRENTLY NOT A CANDIDATE BECAUSE OF CACHEXIA S/P G TUBE PLACEMENT FOR NUTRITIONAL SUPPORT ONCE PT HAS ADEQUATE IMPROVEMENT IN NUTRITIONAL STATUS AND STRENGTH PT CAN BE BECOME ELIBILE FOR HEART TRANSPLANT vital signs Vital Sign Date Time Temp Pulse Resp B/P (MAP) Pulse Ox O2 Delivery O2 Flow Rate FiO2 09/12/24 12:30 97.9 68 20 123/71 (88) 95 97.9 09/12/24 08:00 Room Air* 0 21 Total Intake and Output 09/11/24 09/11/24 09/12/24 15:00 23:00 07:00 Intake Total 600 ml 200 ml Output Total 750 ml Balance -150 ml 200 ml medications Current Medications Medications Dose Ordered Sig/Tucker Route Start Time Stop Time Status Last Admin Dose Admin Nitroglycerin 0.4 mg Q5MINP PRN SL 08/31/24 11:45 Digoxin 0.125 mg DAILY PO 09/01/24 10:00 09/12/24 10:13 0.125 MG Ivabradine 5 mg BID PO 08/31/24 22:00 09/12/24 10:34 5 MG Enteral Nutritional Formula 240 ml QID PO 08/31/24 18:00 09/12/24 06:30 240 ML Apixaban 2.5 mg DAILY PO 08/31/24 15:21 09/12/24 10:13 2.5 MG Furosemide 20 mg DAILY IV 09/01/24 10:00 09/12/24 10:13 20 MG Potassium Chloride 20 meq DAILY PO 09/04/24 10:00 09/12/24 10:12 20 MEQ Spironolactone 25 mg DAILY PO 09/04/24 10:00 09/12/24 10:12 25 MG Levothyroxine Sodium 150 mcg QAM@0600 PO 09/04/24 14:15 UNV Mirtazapine 15 mg HS PO 09/04/24 22:00 09/11/24 21:46 15 MG Levothyroxine Sodium 112 mcg QAM@0600 PO 09/05/24 06:00 09/12/24 05:49 112 MCG Ondansetron HCl 4 mg Q6HPRN PRN IV 09/05/24 14:30 09/12/24 06:47 4 MG Armodafinil 150 mg QAM@08 PO 09/13/24 08:00 laboratory and microbiology Laboratory Tests 09/04/24 05:33 09/03/24 09:02 Test 09/04/24 05:33 Range/Units Serum Glucose 76 74-106 mg/dL Problem List HFrEF ACUTE DILATED CM S/P AICD HTN NOW WITH MARKED ELEVATED BNP ACUTE HFrEF DCM EF <20% cachexia/ anorexia NORMAL CORONARIES EF <20% S/P MITRAL VALVE CLIP BILATERAL PLEURAL EFFUSION HX OF THORACENTESIS NOW WITH ACUTE DECOMPENSATION NO CLINICAL OR RADIOGRAPHIC EVIDENCE FOR PNEUMONIA INCREASE SYNTHROID TO 200 CORRECT HYPOKALEMIA PT ADMITTED TO [facility]ATED FOR HEART TRANSPLANT CURRENTLY NOT A CANDIDATE BECAUSE OF CACHEXIA S/P G TUBE PLACEMENT FOR NUTRITIONAL SUPPORT ONCE PT HAS ADEQUATE IMPROVEMENT IN NUTRITIONAL STATUS AND STRENGTH PT CAN BE BECOME ELIBILE FOR HEART TRANSPLANT Assessment/Plan TITRATE ON MEDS PT INCREASE NUTRITIONAL SUPPLEMENT WITH DIG AND CORLANOR HEART RATE CONTROLED START MEGACE DIC PANEL CONSIDER BONE MARROW BX ITP R/O START MEGACE INCREASE SYNTHROID TO 150 lise START PT ON PROVIGIL OR NUVIGIL DC ALL SEDATION PHYSICAL THERAPY ALL LABS UA BNP Dietary Evaluation Review Comments: 1) Continue to monitor pt PO intake to meed at least 75% of meals 2) Consider TESSIE BID for wound 3) Continue current plan of care Expected Outcomes/Goals: 1) Pt appetite to improve 2) F/U in 3-5 days Plan discussed with: Patient KALLIE GLASGOW MD Sep 12, 2024 12:54
[2024-09-12] MEDS: ARMODAFINIL 150 MG TAB PO ONE (13:23)
[2024-09-12 13:39] LABS: Base Excess 1.5 mmol/L (-2.0-3.0)
[2024-09-12 14:05] LABS: Basophils # (auto) 0.1 10 ^3/uL (0-0.2); Basophils % (auto) 1.2 % (0.0-2.0); Eosinophils # (auto) 0 10 ^3/uL (0-0.8); Eosinophils % (auto) 0.7 % (0.0-7.0); Hematocrit 37.2 % (36.0-46.0); Lymphocytes # (auto) 0.8 10 ^3/uL (0.4-5.4); Lymphocytes % (auto) 12.4 % (10.0-50.0); Mean Corpuscular Hemoglobin 31.2 pg (28.0-32.0); Mean Corpuscular Hgb Conc. 32.2 g/dL (32.0-36.0); Mean Corpuscular Volume 96.9 fL (80.0-100.0); Monocytes # (auto) 0.8 10 ^3/uL (0-1.3); Monocytes % (auto) 12.3 % (0.0-12.0); Neutrophils # (auto) 4.5 10 ^3/uL (1.6-8.6); Neutrophils % (auto) 73.4 % (37.0-80.0); Nucleated Red Blood Cells % 0.1 %; Platelet Count (auto) 287 10^3/uL (140-450); Red Blood Cells 3.84 10^6/uL (4.0-5.20); Red Cell Distribution Width 19.2 % (11.8-14.3); White Blood Cell 6.1 10^3/uL (4.4-10.8)
[2024-09-12 14:24] LABS: Alanine Aminotransferase 22 U/L (7-40); Albumin 3.4 g/dL (3.2-4.8); Alkaline Phosphatase 156 U/L (46-116); Anion Gap 7 (5-15); Aspartate Aminotransferase 21 U/L (13-40); BUN/Creatinine Ratio 24.5 (10.0-20.0); Bilirubin, Total 0.5 mg/dL (0.2-1.0); Blood Urea Nitrogen 13 mg/dL (9-23); Calcium 9.3 mg/dL (8.7-10.4); Carbon Dioxide 28 mmol/L (20-31); Chloride 104 mmol/L (98-107); Glucose 106 mg/dL (74-106); Potassium 3.7 mmol/L (3.5-5.1); Sodium 139 mmol/L (136-145); Total Protein 6.3 g/dL (5.7-8.2)
--- NOTE | 2024-09-12 18:37 | DVHINCON2 ---
Date of service: Sep 11, [address] Skaggs Reason for Consultation COPD, CHF History of Present Illness 64-year-old woman history of CHF, hyperlipidemia, valve insufficiency, heart failure with reduced ejection fraction EF 10-20%, mitral regurgitation status post MitraClip, dilated cardiomyopathy, cachexia, anorexia, chronic thrombocytopenia, previous history of cardiogenic shock status post Biotronik AICD placement currently awaiting heart transplant. She presented with a chief complaint of bilateral lower extremity leg weakness for the last five months. It has been progressive. She was unable to ambulate. She lives with her . Pulmonary consultation is called for evaluation of acute hypoxic respiratory failure and shortness of breath. Review of systems: 14 point review of systems is negative unless otherwise noted above. Past medical history: Heart failure with reduced ejection fraction, 20 20%, mitral regurgitation, status post MitraClip, dilated cardiomyopathy, cachexia, anorexia, chronic thrombocytopenia, previous history of cardiogenic shock status post Biotronik AICD placement, Past surgical history: None mentioned in prior surgeries. Medications: Reviewed Allergies: No known drug allergies. Family history: No family history of premature CAD. No family history of lung disease Social history: Nonsmoker. Heavy alcohol use. Used to drink six packs each day. No illicit drug use. Family History: Autoimmune disorder G8 SISTER Cancer (Prostate) G8 FATHER FH: SD (myocardial infarction) G8 BROTHER FH: prostate cancer G8 FATHER Family history: Diabetes mellitus G8 BROTHER Other blood disorders G8 SISTER Psychiatric condition G8 SISTER Thyroid disease G8 SISTER Allergies: Coded Allergies: NO KNOWN ALLERGIES (Unverified , 05/19/21) Home Meds Reported Medications Lorazepam (ATIVAN TABLET) 0.5 Mg Tb, 1 TAB PO QHSP PRN for FOR INSOMNIA for 30 Days, #90 07/10/24 Trazodone Hcl (Trazodone Hcl) 100 Mg Tab, 1 TAB PO QHSP PRN for FOR INSOMNIA for 30 Days, #30 07/10/24 Ergocalciferol (Vitamin D (Ergocalciferol) 50,000 Unit Cap, 1 CAP PO QWEEKLY for 90 Days, #12 07/09/24 Spironolactone (Spironolactone) 25 Mg Tab, 1 TAB PO DAILY for 30 Days, #30 07/09/24 Potassium Chloride (Potassium Chloride ER) 10 Meq Tab, 1 TAB PO DAILY for 30 Days, #30 07/09/24 Furosemide (Furosemide) 20 Mg Tab, 1 TAB PO DAILY for 30 Days, #30 07/09/24 Digoxin (Digoxin) 125 Mcg Tab, 1 TAB PO DAILY for 90 Days, #90 07/09/24 Cyanocobalamin (B-12) 500 Mcg Tab, 1 TAB PO DAILY for 30 Days, #30 07/09/24 Amiodarone Hcl (Amiodarone Hcl) 200 Mg Tab, 1 TAB PO DAILY for 90 Days, #90 05/24/24 Levothyroxine Sodium (Levothyroxine Sodium) 100 Mcg Cap, 1 TAB PO DAILY for 30 Days, #30 05/24/24 Olanzapine (OLANZAPINE) 5 Mg Tab, 1 TAB PO DAILY 02/09/24 Fexofenadine Hydrochloride (MIKEL ALLERGY) 180 Mg Tab, 1 TAB PO DAILY 02/09/24 Benazepril Hcl (Benazepril Hcl) 10 Mg Tab, 1 TAB PO DAILY for 90 Days, #90 02/08/24 Pantoprazole Sodium Sesquihydr (Pantoprazole Sodium) 40 Mg Tab, 1 TAB PO BID 02/08/24 Ibuprofen (Ibuprofen) 400 Mg Tab, 400 MG PO DAILYPRN, MG 01/07/21 Current Medications Current Medications Medications (Trade) Dose Ordered Sig/Tucker Route PRN Reason Start Time Stop Time Status Last Admin Armodafinil (Nuvigil) 150 mg QAM@08 PO 09/12/24 12:26 09/12/24 12:26 DC Armodafinil (Nuvigil) 150 mg QAM@08 PO 09/13/24 08:00 Vital Signs Vital Signs Date Time Temp Pulse Resp B/P (MAP) Pulse Ox O2 Delivery O2 Flow Rate FiO2 09/12/24 16:35 97.9 69 18 129/61 (83) 98 97.9 09/12/24 08:00 Room Air* 0 21 Physical Exam Gen.: Patient lying in bed in no apparent distress. On supplemental oxygen. Head: Normocephalic, atraumatic Eyes: EOMI/PERRLA. Ears: Normal hearing. Normal anatomy. Neck/trachea: Trachea midline, supple. Nose: Normal external anatomy. Mouth: Moist mucous membranes. Chest: Decreased air entry bilaterally. No wheezing or rhonchi. Cardio vascular: Pacemaker in place. Positive S1, positive S2. Regular rate and rhythm. Abdomen: Positive bowel sounds in all 4 quadrants. Soft, non-tender, non- distended. : Deferred. Rectal: Deferred Skin: Warm, dry. Extremities: 2+ radial pulses bilaterally. No lower extremity edema. Neuro: Awake, alert, oriented x3. No gross motor or sensory deficits. Cranial nerves II through XII intact. Gait not assessed. Labs/Diagnostic Data Labs Test 09/12/24 13:44 09/12/24 13:29 09/09/24 22:45 09/04/24 05:33 Range/Units White Blood Count 6.1 4.4-10.8 10^3/uL Red Blood Count 3.84 L 4.0-5.20 10^6/uL Hemoglobin 12.0 L 12.2-16.2 g/dL Hematocrit 37.2 36.0-46.0 % Mean Corpuscular Volume 96.9 80.0-100.0 fL Mean Corpuscular Hemoglobin 31.2 28.0-32.0 pg Mean Corpuscular Hemoglobin Concent 32.2 32.0-36.0 g/dL Red Cell Distribution Width 19.2 H 11.8-14.3 % Platelet Count 287 140-450 10^3/uL Mean Platelet Volume 8.6 6.9-10.8 fL Neutrophils (%) (Auto) 73.4 37.0-80.0 % Lymphocytes (%) (Auto) 12.4 10.0-50.0 % Monocytes (%) (Auto) 12.3 H 0.0-12.0 % Eosinophils (%) (Auto) 0.7 0.0-7.0 % Basophils (%) (Auto) 1.2 0.0-2.0 % Neutrophils # (Auto) 4.5 1.6-8.6 10 ^3/uL Lymphocytes # (Auto) 0.8 0.4-5.4 10 ^3/uL Monocytes # (Auto) 0.8 0-1.3 10 ^3/uL Eosinophils # (Auto) 0 0-0.8 10 ^3/uL Basophils # (Auto) 0.1 0-0.2 10 ^3/uL Nucleated Red Blood Cells 0.1 % Sodium Level 139 136-145 mmol/L Potassium Level 3.7 3.5-5.1 mmol/L Chloride Level 104 98-107 mmol/L Carbon Dioxide Level 28 20-31 mmol/L Anion Gap 7 5-15 Blood Urea Nitrogen 13 9-23 mg/dL Creatinine 0.53 L 0.550-1.02 mg/dL Glomerular Filtration Rate Calc 103 >90 mL/min BUN/Creatinine Ratio 24.5 H 10.0-20.0 Serum Glucose 106 74-106 mg/dL Calcium Level 9.3 8.7-10.4 mg/dL Total Bilirubin 0.5 0.2-1.0 mg/dL Aspartate Amino Transferase (AST) 21 13-40 U/L Alanine Aminotransferase (ALT) 22 7-40 U/L Alkaline Phosphatase 156 H 46-116 U/L B-Type Natriuretic Peptide 2219.83 0-100 pg/mL Total Protein 6.3 5.7-8.2 g/dL Albumin 3.4 3.2-4.8 g/dL Blood Gas Specimen Type Arterial Blood Gas Sample Site Right radial Blood Gas Patient Temperature 37.0 Arterial Blood Date Drawn [id number] Arterial Blood pH 7.476 H 7.350-7.450 Arterial Blood Partial Pressure CO2 34.2 32.0-45.0 mmHg Arterial Blood Partial Pressure O2 68.5 L 83.0-108.0 mmHg Arterial Blood HCO3 24.7 21.0-28.0 mmol/L Arterial Blood Oxygen Saturation 93.2 L 94.0-98.0 % Arterial Blood Base Excess 1.5 -2.0-3.0 mmol/L Arterial Blood Oxyhemoglobin 92.3 L 94.0-98.0 % Arterial Blood Carboxyhemoglobin 0.8 0.5-1.5 % Arterial Blood Methemoglobin 0.2 0.0-1.5 % Douglas Test Yes Blood Gas Total Hemoglobin 12.80 12.0-16.0 g/dL Blood Gas Modality Room air FiO2 % 21.0 Urine Color Yellow Yellow Urine Clarity Clear Clear Urine pH 6.5 5.0-9.0 Urine Specific [place] 1.023 1.001-1.035 Urine Protein 1+ H Negative Urine Ketones Negative Negative Urine Blood Negative Negative /uL Urine Nitrite Negative Negative Urine Bilirubin Negative Negative Urine Urobilinogen 6 Negative mg/dL Urine Leukocyte Esterase Negative Negative /uL Urine RBC 1 0 - 4 /hpf Urine WBC 4 0 - 5 /hpf Urine Squamous Epithelial Cells Few <5 /hpf Urine Bacteria None seen None Seen /hpf Urine Mucus Few None Seen Urine Glucose Normal Normal mg/dL Magnesium Level 1.8 1.6-2.6 mg/dL Thyroid Stimulating Hormone (TSH) 20.63 H 0.55-4.78 uIU/mL Digoxin Level 0.30 L 0.8-2 ng/mL Test 09/03/24 13:25 09/01/24 05:10 08/31/24 18:18 08/31/24 11:25 Range/Units Fibrin Degradation Products <5 <5 ug/mL Influenza Type A Antigen Negative Negative Influenza Type B Antigen Negative Negative SARS-CoV-2 Antigen (Rapid) Negative NEGATIVE Troponin I High Sensitivity 36 *H </=34 ng/L Platelet Estimate Decreased Clumped Platelets None Giant Platelets Few Lactate Dehydrogenase 321 H 120-246 U/L Vitamin D 25-Hydroxy 47.4 30.0-100 ng/mL Free Thyroxine (T4) Calculated 1.18 0.89-1.76 ng/dL Free Triiodothyronine (T3) pg/mL 1.07 L 2.3-4.2 pg/mL Microbiology Date/Time Source Procedure Growth Status 08/31/24 03:35 Nose MRSA Screen - Final Complete Assessment Impression: Acute on chronic systolic congestive heart failure COPD Pulmonary edema CHF status post AICD placement Non ST-elevation myocardial infarction Status post COVID [id number] malnutrition Dyspnea on exertion Plan: Chest x-ray imaging report reviewed. Cardiomegaly. Pulmonary edema. Small right pleural effusion. On room air Diuresis euvolemia. On Lasix once daily. Continue spironolactone, Corlanor, digoxin Nuvigil. Continue Eliquis for AFib. Monitor ins and outs. Monitor renal function Monitor electrolytes. Supplement as necessary. Ensure for nutritional supplementation Wound care DVT prophylaxis-on Eliquis. Prognosis: Poor given multiple comorbidities. Rest of plan per hospitalist and other consultants. Thank you Dr. Skaggs for allowing me to participate in this patient's care. Further recommendations will depend on patient's clinical course. Please do not hesitate to contact me if you have any questions or concerns. This medical document was created using an electronic medical record system with [employer] system. Although this document has been carefully reviewed, there may still be some phonetic and typographical errors. These a reas are purely typographical due to imperfections of the software programs, and do not reflect any compromise in the patient's medical care. Plan discussed with: Patient, Other (SETH Curtis MD) JEOVANNY DHILLON MD Sep 12, 2024 18:37
--- NOTE | 2024-09-12 18:41 | DVHPN2 ---
Progress Note - Dictate Date Seen: Sep 12, 2024 Medical Necessity Reason Pt with a Central, PICC or Fol: No Subjective Patient seen and examined at bedside. On room air. No new complaints. vital signs Vital Sign Date Time Temp Pulse Resp B/P (MAP) Pulse Ox O2 Delivery O2 Flow Rate FiO2 09/12/24 16:35 97.9 69 18 129/61 (83) 98 97.9 09/12/24 08:00 Room Air* 0 21 Total Intake and Output 09/11/24 09/11/24 09/12/24 15:00 23:00 07:00 Intake Total 600 ml 200 ml Output Total 750 ml Balance -150 ml 200 ml medications Current Medications Medications Dose Ordered Sig/Tucker Route Start Time Stop Time Status Last Admin Dose Admin Nitroglycerin 0.4 mg Q5MINP PRN SL 08/31/24 11:45 Digoxin 0.125 mg DAILY PO 09/01/24 10:00 09/12/24 10:13 Ivabradine 5 mg BID PO 08/31/24 22:00 09/12/24 10:34 Enteral Nutritional Formula 240 ml QID PO 08/31/24 18:00 09/12/24 17:19 Apixaban 2.5 mg DAILY PO 08/31/24 15:21 09/12/24 10:13 Furosemide 20 mg DAILY IV 09/01/24 10:00 09/12/24 10:13 Potassium Chloride 20 meq DAILY PO 09/04/24 10:00 09/12/24 10:12 Spironolactone 25 mg DAILY PO 09/04/24 10:00 09/12/24 10:12 Levothyroxine Sodium 150 mcg QAM@0600 PO 09/04/24 14:15 UNV Levothyroxine Sodium 112 mcg QAM@0600 PO 09/05/24 06:00 09/12/24 05:49 Ondansetron HCl 4 mg Q6HPRN PRN IV 09/05/24 14:30 09/12/24 06:47 Armodafinil 150 mg QAM@08 PO 09/13/24 08:00 objective Gen.: Patient lying in bed in no apparent distress. On supplemental oxygen. Head: Normocephalic, atraumatic Eyes: EOMI/PERRLA. Ears: Normal hearing. Normal anatomy. Neck/trachea: Trachea midline, supple. Nose: Normal external anatomy. Mouth: Moist mucous membranes. Chest: Decreased air entry bilaterally. No wheezing or rhonchi. Cardio vascular: Pacemaker in place. Positive S1, positive S2. Regular rate and rhythm. Abdomen: Positive bowel sounds in all 4 quadrants. Soft, non-tender, non- distended. : Deferred. Rectal: Deferred Skin: Warm, dry. Extremities: 2+ radial pulses bilaterally. No lower extremity edema. Neuro: Awake, alert, oriented x3. No gross motor or sensory deficits. Cranial nerves II through XII intact. Gait not assessed. laboratory and microbiology Laboratory Tests 09/12/24 13:44 Test 09/12/24 13:44 Range/Units Serum Glucose 106 74-106 mg/dL Assessment/Plan Impression: Acute on chronic systolic congestive heart failure COPD Pulmonary edema CHF status post AICD placement Non ST-elevation myocardial infarction Status post COVID Scqmqxmk-sv-kkwelh malnutrition Dyspnea on exertion Events: No new complaints. Breathing comfortably on room air. Continue diuresing as tolerated. Wound care Plan: Chest x-ray imaging report reviewed. Cardiomegaly. Pulmonary edema. Small right pleural effusion. On room air Diuresis euvolemia. On Lasix once daily. Continue spironolactone, Corlanor, digoxin Nuvigil. Continue Eliquis for AFib. Monitor ins and outs. Monitor renal function Monitor electrolytes. Supplement as necessary. Ensure for nutritional supplementation Wound care DVT prophylaxis-on Eliquis. Prognosis: Poor given multiple comorbidities. Rest of plan per hospitalist and other consultants. Thank you Dr. Skaggs for allowing me to participate in this patient's care. Further recommendations will depend on patient's clinical course. Please do not hesitate to contact me if you have any questions or concerns. This medical document was created using an electronic medical record system with [employer] dictation system. Although this document has been carefully reviewed, there may still be some phonetic and typographical errors. These areas are purely typographical due to imperfections of the software programs, and do not reflect any compromise in the patient's medical care. Dietary Evaluation Review Comments: 1) Continue to monitor pt PO intake to meed at least 75% of meals 2) Consider TESSIE BID for wound 3) Continue current plan of care Expected Outcomes/Goals: 1) Pt appetite to improve 2) F/U in 3-5 days Plan discussed with: Patient, Other (SETH Andrew MD) JEOVANNY DHILLON MD Sep 12, 2024 18:41
[2024-09-13] VITALS (7 sets, daily range): BP systolic 115–152; BP diastolic 60–98; PULSE 70; RESP 16–18; TEMP 97.4–98.1; O2SAT 91–95
[2024-09-13] MEDS: ARMODAFINIL 150 MG TAB PO SCH (08:00)
[2024-09-13] MEDS: DOCUSATE SOD 100 MG CAP PO SCH (09:10)
--- NOTE | 2024-09-13 15:28 | DVHDS2 ---
Discharge Summary Date of Admission Aug 31, 2024 at 00:28 Date of Discharge: Sep 13, 2024 Labs/Diagnostic Data: Laboratory Results Test 09/12/24 13:44 09/12/24 13:29 09/09/24 22:45 09/04/24 05:33 White Blood Count 6.1 10^3/uL (4.4-10.8) Red Blood Count 3.84 10^6/uL (4.0-5.20) Hemoglobin 12.0 g/dL (12.2-16.2) Hematocrit 37.2 % (36.0-46.0) Mean Corpuscular Volume 96.9 fL (80.0-100.0) Mean Corpuscular Hemoglobin 31.2 pg (28.0-32.0) Mean Corpuscular Hemoglobin Concent 32.2 g/dL (32.0-36.0) Red Cell Distribution Width 19.2 % (11.8-14.3) Platelet Count 287 10^3/uL (140-450) Mean Platelet Volume 8.6 fL (6.9-10.8) Neutrophils (%) (Auto) 73.4 % (37.0-80.0) Lymphocytes (%) (Auto) 12.4 % (10.0-50.0) Monocytes (%) (Auto) 12.3 % (0.0-12.0) Eosinophils (%) (Auto) 0.7 % (0.0-7.0) Basophils (%) (Auto) 1.2 % (0.0-2.0) Neutrophils # (Auto) 4.5 10 ^3/uL (1.6-8.6) Lymphocytes # (Auto) 0.8 10 ^3/uL (0.4-5.4) Monocytes # (Auto) 0.8 10 ^3/uL (0-1.3) Eosinophils # (Auto) 0 10 ^3/uL (0-0.8) Basophils # (Auto) 0.1 10 ^3/uL (0-0.2) Nucleated Red Blood Cells 0.1 % Sodium Level 139 mmol/L (136-145) Potassium Level 3.7 mmol/L (3.5-5.1) Chloride Level 104 mmol/L (98-107) Carbon Dioxide Level 28 mmol/L (20-31) Anion Gap 7 (5-15) Blood Urea Nitrogen 13 mg/dL (9-23) Creatinine 0.53 mg/dL (0.550-1.02) Glomerular Filtration Rate Calc 103 mL/min (>90) BUN/Creatinine Ratio 24.5 (10.0-20.0) Serum Glucose 106 mg/dL (74-106) Calcium Level 9.3 mg/dL (8.7-10.4) Total Bilirubin 0.5 mg/dL (0.2-1.0) Aspartate Amino Transferase (AST) 21 U/L (13-40) Alanine Aminotransferase (ALT) 22 U/L (7-40) Alkaline Phosphatase 156 U/L (46-116) B-Type Natriuretic Peptide 2219.83 pg/mL (0-100) Total Protein 6.3 g/dL (5.7-8.2) Albumin 3.4 g/dL (3.2-4.8) Blood Gas Specimen Type Arterial Blood Gas Sample Site Right radial Blood Gas Patient Temperature 37.0 Arterial Blood Date Drawn [id number] Arterial Blood pH 7.476 (7.350-7.450) Arterial Blood Partial Pressure CO2 34.2 mmHg (32.0-45.0) Arterial Blood Partial Pressure O2 68.5 mmHg (83.0-108.0) Arterial Blood HCO3 24.7 mmol/L (21.0-28.0) Arterial Blood Oxygen Saturation 93.2 % (94.0-98.0) Arterial Blood Base Excess 1.5 mmol/L (-2.0-3.0) Arterial Blood Oxyhemoglobin 92.3 % (94.0-98.0) Arterial Blood Carboxyhemoglobin 0.8 % (0.5-1.5) Arterial Blood Methemoglobin 0.2 % (0.0-1.5) [place] Test Yes Blood Gas Total Hemoglobin 12.80 g/dL (12.0-16.0) Blood Gas Modality Room air FiO2 % 21.0 Urine Color Yellow (Yellow) Urine Clarity Clear (Clear) Urine pH 6.5 (5.0-9.0) Urine Specific [place] 1.023 (1.001-1.035) Urine Protein 1+ (Negative) Urine Ketones Negative (Negative) Urine Blood Negative /uL (Negative) Urine Nitrite Negative (Negative) Urine Bilirubin Negative (Negative) Urine Urobilinogen 6 mg/dL (Negative) Urine Leukocyte Esterase Negative /uL (Negative) Urine RBC 1 /hpf (0 - 4) Urine WBC 4 /hpf (0 - 5) Urine Squamous Epithelial Cells Few /hpf (<5) Urine Bacteria None seen /hpf (None Seen) Urine Mucus Few (None Seen) Urine Glucose Normal mg/dL (Normal) Magnesium Level 1.8 mg/dL (1.6-2.6) Thyroid Stimulating Hormone (TSH) 20.63 uIU/mL (0.55-4.78) Digoxin Level 0.30 ng/mL (0.8-2) Test 09/03/24 13:25 09/01/24 05:10 08/31/24 18:18 08/31/24 11:25 Fibrin Degradation Products <5 ug/mL (<5) Influenza Type A Antigen Negative (Negative) Influenza Type B Antigen Negative (Negative) SARS-CoV-2 Antigen (Rapid) Negative (NEGATIVE) Troponin I High Sensitivity 36 ng/L (</=34) Platelet Estimate Decreased Clumped Platelets None Giant Platelets Few Lactate Dehydrogenase 321 U/L (120-246) Vitamin D 25-Hydroxy 47.4 ng/mL (30.0-100) Free Thyroxine (T4) Calculated 1.18 ng/dL (0.89-1.76) Free Triiodothyronine (T3) pg/mL 1.07 pg/mL (2.3-4.2) Other Laboratory Tests 09/12/24 13:44 Brief Hx & Hospital Course: Mrs. Garcia 64-year-old female with past medical history significant for heart failure with reduced ejection fraction, 10-20%, mitral regurgitation status post MitraClip, dilated cardiomyopathy, cachexia, anorexia, chronic thrombocytopenia, previous history of cardiogenic shock status post Biotronik AICD placement, is waiting for heart transplant At [facility], Dr. Patterson as primary care and came here with chief complaint of increasing bilateral lower leg weakness for past 5 months which is progressive, worsening to the point that patient is not able to ambulate by herself. Patient lives with and family who helps her to mobilize herself with the help of wheelchair, walker, and other assistive devices. Patient is denies chest pain, shortness of breath, PND, orthopnea, signs of heart failure, dyspnea on exertion. She was admitted earlier few months back with acute hypoxic respiratory failure, developed COVID was on remdesivir and subsequently had a [place]-Alyssa catheter that showed elevated left ventricular end-diastolic pressure. ACUTE HFrEF DCM EF <20% cachexia/ anorexia * Acute on chronic systolic heart failure * Hypothyroidism * Status post AICD. * Non-STEMI likely type 2. * s/p covid 19 * mod/severe malnutrition Continuing current management. Continuing with IV Lasix and Aldactone and also digoxin Continuing with tube feeding and mirtazapine. Continuing with ensure to help with nutrition support Encourage the patient to work with PT, to be out of bed and ambulate. pt initially requests home with HH, changed her mind and wants SNF Condition at Discharge: Fair Final Diagnosis/Problems List see above Discharge Disposition: Care Home Facility Discharge Instruct/Medications Diet: Cardiac 2g Na,low cholest Activity: No Restrictions, As Tolerated Discharge Statement: "Patient was advised to return to the ER or call 911 if any headaches, dizziness, shortness of breath, chest pain, abdominal pain, bleeding, fevers, or worsening of medical condition. Patient was counseled about treatment plan, medications, possible side effects, patientverbalized understanding. All questions were answered to the best of my ability. This discharge took greater then 30 minutes in planning, reviewing documentation, counseling the patient, and discussing with other team members." ASSESSMENT ASSESSMENT Assessment Date of Service: Sep 13, 2024 Billing Provider: KIMBERLY VALENTINO DO Common Visit Codes: [id number] DISCH DAY >30min KIMBERLY VALENTINO DO Sep 13, 2024 15:28
--- NOTE | 2024-09-13 18:51 | DVHPN2 ---
Progress Note - Dictate Date Seen: Sep 13, 2024 Medical Necessity Reason Pt with a Central, PICC or Fol: No Subjective Patient seen and examined at bedside. On room air. No new complaints. vital signs Vital Sign Date Time Temp Pulse Resp B/P (MAP) Pulse Ox O2 Delivery O2 Flow Rate FiO2 09/13/24 17:00 97.4 70 18 143/66 (91) 91 97.4 09/13/24 08:00 Room Air* 0 21 Total Intake and Output 09/12/24 09/12/24 09/13/24 15:00 23:00 07:00 Intake Total 580 ml 780 ml Balance 580 ml 780 ml medications Current Medications Medications Dose Ordered Sig/Tucker Route Start Time Stop Time Status Last Admin Dose Admin Nitroglycerin 0.4 mg Q5MINP PRN SL 08/31/24 11:45 Digoxin 0.125 mg DAILY PO 09/01/24 10:00 09/13/24 09:11 0.125 MG Ivabradine 5 mg BID PO 08/31/24 22:00 09/13/24 09:15 5 MG Enteral Nutritional Formula 240 ml QID PO 08/31/24 18:00 09/12/24 17:19 240 ML Apixaban 2.5 mg DAILY PO 08/31/24 15:21 09/13/24 09:12 2.5 MG Furosemide 20 mg DAILY IV 09/01/24 10:00 09/13/24 09:12 20 MG Potassium Chloride 20 meq DAILY PO 09/04/24 10:00 09/13/24 09:11 20 MEQ Spironolactone 25 mg DAILY PO 09/04/24 10:00 09/13/24 09:12 25 MG Levothyroxine Sodium 150 mcg QAM@0600 PO 09/04/24 14:15 UNV Levothyroxine Sodium 112 mcg QAM@0600 PO 09/05/24 06:00 09/13/24 05:14 112 MCG Ondansetron HCl 4 mg Q6HPRN PRN IV 09/05/24 14:30 09/13/24 05:21 4 MG Armodafinil 150 mg QAM@08 PO 09/13/24 08:00 Docusate Sodium 100 mg BID PO 09/13/24 10:00 09/13/24 09:10 100 MG objective Gen.: Patient lying in bed in no apparent distress. Breathing on room air. Head: Normocephalic, atraumatic Eyes: EOMI/PERRLA. Ears: Normal hearing. Normal anatomy. Neck/trachea: Trachea midline, supple. Nose: Normal external anatomy. Mouth: Moist mucous membranes. Chest: Decreased air entry bilaterally. No wheezing or rhonchi. Cardio vascular: Pacemaker in place. Positive S1, positive S2. Regular rate and rhythm. Abdomen: Positive bowel sounds in all 4 quadrants. Soft, non-tender, non- distended. : Deferred. Rectal: Deferred Skin: Warm, dry. Extremities: 2+ radial pulses bilaterally. No lower extremity edema. Neuro: Awake, alert, oriented x3. No gross motor or sensory deficits. Cranial nerves II through XII intact. Gait not assessed. laboratory and microbiology Laboratory Tests 09/12/24 13:44 Test 09/12/24 13:44 Range/Units Serum Glucose 106 74-106 mg/dL Assessment/Plan Impression: Acute on chronic systolic congestive heart failure COPD Pulmonary edema CHF status post AICD placement Non ST-elevation myocardial infarction Status post COVID Erxmzyah-hb-ncxeaz malnutrition Dyspnea on exertion Events: No new complaints. Breathing comfortably on room air. Patient awaiting heart transplant Fluid restriction 1200 mL. Nutritional support with Ensure. Diurese w/ Lasix as tolerated Monitor renal function. Monitor electrolytes. Supplement as necessary. Potassium supplementation Continue Eliquis, Digoxin and spironolactone. Cardiology recs appreciated. Patient is out of bed to chair. Wound care Labs and imaging reviewed. Rest of plan as noted below. Plan: Chest x-ray imaging report reviewed. Cardiomegaly. Pulmonary edema. Small right pleural effusion. On room air Diurese to euvolemia. On Lasix once daily. Continue spironolactone, Corlanor, digoxin Nuvigil. Continue Eliquis for AFib. Monitor ins and outs. Monitor renal function Monitor electrolytes. Supplement as necessary. Ensure for nutritional supplementation Wound care DVT prophylaxis-on Eliquis. Prognosis: Poor given multiple comorbidities. Rest of plan per hospitalist and other consultants. Thank you Dr. Skaggs for allowing me to participate in this patient's care. Further recommendations will depend on patient's clinical course. Please do not hesitate to contact me if you have any questions or concerns. This medical document was created using an electronic medical record system with Dragon computerized dictation system. Although this document has been carefully reviewed, there may still be some phonetic and typographical errors. These areas are purely typographical due to imperfections of the software programs, and do not reflect any compromise in the patient's medical care. Dietary Evaluation Review Comments: 1) Continue to monitor pt PO intake to meed at least 75% of meals 2) Consider TESSIE BID for wound 3) Continue current plan of care Expected Outcomes/Goals: 1) Pt appetite to improve 2) F/U in 3-5 days Plan discussed with: Patient, Other (SETH Curtis) JEOVANNY DHILLON MD Sep 13, 2024 18:51
[2024-09-14] VITALS (9 sets, daily range): BP systolic 97–119; BP diastolic 55–66; PULSE 67–70; RESP 16–18; TEMP 97.6–98.1; O2SAT 92–97
--- NOTE | 2024-09-14 18:58 | DVHPN2 ---
Progress Note - Dictate Date Seen: Sep 14, 2024 Medical Necessity Reason Pt with a Central, PICC or Fol: No Subjective Patient seen and examined at bedside. On room air. No new complaints. vital signs Vital Sign Date Time Temp Pulse Resp B/P (MAP) Pulse Ox O2 Delivery O2 Flow Rate FiO2 09/14/24 16:58 97.7 70 17 101/55 (70) 95 97.7 09/14/24 07:30 Room Air* 0 21 Total Intake and Output 09/13/24 09/13/24 09/14/24 15:00 23:00 07:00 Intake Total 360 ml 600 ml 100 ml Output Total 0 ml Balance 360 ml 600 ml 100 ml medications Current Medications Medications Dose Ordered Sig/Tucker Route Start Time Stop Time Status Last Admin Dose Admin Nitroglycerin 0.4 mg Q5MINP PRN SL 08/31/24 11:45 Digoxin 0.125 mg DAILY PO 09/01/24 10:00 09/14/24 09:56 0.125 MG Ivabradine 5 mg BID PO 08/31/24 22:00 09/14/24 09:52 5 MG Enteral Nutritional Formula 240 ml QID PO 08/31/24 18:00 09/14/24 06:00 240 ML Apixaban 2.5 mg DAILY PO 08/31/24 15:21 09/14/24 09:56 2.5 MG Furosemide 20 mg DAILY IV 09/01/24 10:00 09/13/24 09:12 20 MG Potassium Chloride 20 meq DAILY PO 09/04/24 10:00 09/14/24 09:54 20 MEQ Spironolactone 25 mg DAILY PO 09/04/24 10:00 09/14/24 09:54 25 MG Levothyroxine Sodium 150 mcg QAM@0600 PO 09/04/24 14:15 UNV Levothyroxine Sodium 112 mcg QAM@0600 PO 09/05/24 06:00 09/14/24 06:36 112 MCG Ondansetron HCl 4 mg Q6HPRN PRN IV 09/05/24 14:30 09/13/24 05:21 4 MG Armodafinil 150 mg QAM@08 PO 09/13/24 08:00 Docusate Sodium 100 mg BID PO 09/13/24 10:00 09/14/24 09:56 100 MG objective Gen.: Patient lying in bed in no apparent distress. Breathing on room air. Head: Normocephalic, atraumatic Eyes: EOMI/PERRLA. Ears: Normal hearing. Normal anatomy. Neck/trachea: Trachea midline, supple. Nose: Normal external anatomy. Mouth: Moist mucous membranes. Chest: Decreased air entry bilaterally. No wheezing or rhonchi. Cardio vascular: Pacemaker in place. Positive S1, positive S2. Regular rate and rhythm. Abdomen: Positive bowel sounds in all 4 quadrants. Soft, non-tender, non- distended. : Deferred. Rectal: Deferred Skin: Warm, dry. Extremities: 2+ radial pulses bilaterally. No lower extremity edema. Neuro: Awake, alert, oriented x3. No gross motor or sensory deficits. Cranial nerves II through XII intact. Gait not assessed. laboratory and microbiology Laboratory Tests 09/12/24 13:44 Test 09/12/24 13:44 Range/Units Serum Glucose 106 74-106 mg/dL Assessment/Plan Impression: Acute on chronic systolic congestive heart failure COPD Pulmonary edema CHF status post AICD placement Non ST-elevation myocardial infarction Status post COVID Fncwefya-aj-sgowxt malnutrition Dyspnea on exertion Events: Breathing comfortably on room air. No respiratory distress. Patient appealed for discharge - requesting cardiology clearance. Continue incentive spirometry Maintain euvolemia. Monitor renal function. Monitor electrolytes. Supplement as necessary. Potassium supplementation Patient awaiting heart transplant Nutritional support with Ensure. Continue Eliquis, Digoxin and spironolactone. Cardiology recs appreciated. Patient is out of bed to chair. Wound care Labs and imaging reviewed. Rest of plan as noted below. Plan: Chest x-ray imaging report reviewed. Cardiomegaly. Pulmonary edema. Small right pleural effusion. On room air Diurese to euvolemia - Lasix currently on hold d/t low blood pressure Continue spironolactone, Corlanor, digoxin Nuvigil. Continue Eliquis for AFib. Monitor ins and outs. Monitor renal function Monitor electrolytes. Supplement as necessary. Ensure for nutritional supplementation Wound care DVT prophylaxis-on Eliquis. Prognosis: Poor given multiple comorbidities. Rest of plan per hospitalist and other consultants. Thank you Dr. Skaggs for allowing me to participate in this patient's care. Further recommendations will depend on patient's clinical course. Please do not hesitate to contact me if you have any questions or concerns. This medical document was created using an electronic medical record system with [employer] dictation system. Although this document has been carefully reviewed, there may still be some phonetic and typographical errors. These areas are purely typographical due to imperfections of the software programs, and do not reflect any compromise in the patient's medical care. Dietary Evaluation Review Comments: 1) Continue to monitor pt PO intake to meed at least 75% of meals 2) Consider TESSIE BID for wound 3) Continue current plan of care Expected Outcomes/Goals: 1) Pt appetite to improve 2) F/U in 3-5 days Plan discussed with: Patient, Daughter, Other (SETH Curtis) JEOVANNY DHILLON MD Sep 14, 2024 18:58
[2024-09-15] VITALS (7 sets, daily range): BP systolic 95–122; BP diastolic 47–62; PULSE 69–98; RESP 14–19; TEMP 97.5–98.3; O2SAT 92–96
--- NOTE | 2024-09-15 14:24 | DVHPN2 ---
Reviewed: Care Plan, H&P, Labs, Medications, Previous Orders, Radiology Changes from previous H/P or p: No Changes General: Per HPI Cardiovascular: Edema Objective Vitals Vital Signs Date Time Temp Pulse Resp B/P (MAP) Pulse Ox O2 Delivery O2 Flow Rate FiO2 09/15/24 13:00 97.8 70 16 106/62 (77) 95 97.8 09/15/24 08:00 Room Air* 0 21 Intake/Output Intake and Output 09/15/24 07:00 Intake Total 1100 ml Output Total 201 ml Balance 899 ml Intake Oral 1100 ml Output Urine Total 200 ml Stool Total 1 ml # Voids 1 General Appearance: Alert, Oriented X3, Cooperative, No acute distress HEENT: Atraumatic, PERRLA, EOMI, Mucous membr. moist/pink Neck: Supple Lungs: Clear to auscultation, Normal air movement Cardiovascular: Regular rate, Normal S1, Normal S2, No murmurs, Gallops, Rubs Abdomen: Normal bowel sounds, Soft, No tenderness Extremities: Normal pulses Neuro: Cranial nerves 3-12 NL Psych/Mental Status: Mental status NL Medications Current Medications Medications Dose Ordered Sig/Tucker Route Start Time Stop Time Status Last Admin Dose Admin Nitroglycerin 0.4 mg Q5MINP PRN SL 08/31/24 11:45 Digoxin 0.125 mg DAILY PO 09/01/24 10:00 09/15/24 09:21 0.125 MG Ivabradine 5 mg BID PO 08/31/24 22:00 09/15/24 09:23 5 MG Enteral Nutritional Formula 240 ml QID PO 08/31/24 18:00 09/14/24 06:00 240 ML Apixaban 2.5 mg DAILY PO 08/31/24 15:21 09/15/24 09:22 2.5 MG Furosemide 20 mg DAILY IV 09/01/24 10:00 09/15/24 09:20 20 MG Potassium Chloride 20 meq DAILY PO 09/04/24 10:00 09/15/24 09:22 20 MEQ Spironolactone 25 mg DAILY PO 09/04/24 10:00 09/15/24 09:22 25 MG Levothyroxine Sodium 150 mcg QAM@0600 PO 09/04/24 14:15 UNV Levothyroxine Sodium 112 mcg QAM@0600 PO 09/05/24 06:00 09/15/24 05:26 112 MCG Ondansetron HCl 4 mg Q6HPRN PRN IV 09/05/24 14:30 09/13/24 05:21 4 MG Armodafinil 150 mg QAM@08 PO 09/13/24 08:00 09/15/24 09:20 150 MG Docusate Sodium 100 mg BID PO 09/13/24 10:00 09/15/24 09:22 100 MG Laboratory Results Laboratory Tests 09/12/24 13:44 Urinalysis Test 09/09/24 22:45 Urine Color Yellow (Yellow) Urine Clarity Clear (Clear) Urine pH 6.5 (5.0-9.0) Urine Specific [place] 1.023 (1.001-1.035) Urine Protein 1+ (Negative) H Urine Ketones Negative (Negative) Urine Blood Negative /uL (Negative) Urine Nitrite Negative (Negative) Urine Bilirubin Negative (Negative) Urine Urobilinogen 6 mg/dL (Negative) Urine Leukocyte Esterase Negative /uL (Negative) Urine RBC 1 /hpf (0 - 4) Urine WBC 4 /hpf (0 - 5) Urine Squamous Epithelial Cells Few /hpf (<5) Urine Bacteria None seen /hpf (None Seen) Urine Mucus Few (None Seen) Urine Glucose Normal mg/dL (Normal) Microbiology Microbiology Date/Time Source Procedure Growth Status 08/31/24 03:35 Nose MRSA Screen - Final Complete Labs and/or images reviewed: Labs reviewed by me, Image(s) reviewed by me Assessment/Plan Assessment/Plan ACUTE HFrEF DCM EF <20% cachexia/ anorexia * Acute on chronic systolic heart failure * Hypothyroidism * Status post AICD. * Non-STEMI likely type 2. * s/p covid 19 * mod/severe malnutrition Continuing current management. Continuing with IV Lasix and Aldactone and also digoxin Continuing with tube feeding and mirtazapine. Continuing with ensure to help with nutrition support Encourage the patient to work with PT, to be out of bed and ambulate. pt requests home with HH Plan discussed with: Patient Date of Service: Sep 13, 2024 Billing Provider: KIMBERLY VALENTINO DO Common Visit Codes: [id number] INP/OBS CARE(HIGH) KIMBERLY VALENTINO DO Sep 15, 2024 14:24
--- NOTE | 2024-09-15 14:24 | DVHPN2 ---
Reviewed: Care Plan, H&P, Labs, Medications, Previous Orders, Radiology Changes from previous H/P or p: No Changes General: Per HPI Cardiovascular: Edema Objective Vitals Vital Signs Date Time Temp Pulse Resp B/P (MAP) Pulse Ox O2 Delivery O2 Flow Rate FiO2 09/15/24 13:00 97.8 70 16 106/62 (77) 95 97.8 09/15/24 08:00 Room Air* 0 21 Intake/Output Intake and Output 09/15/24 07:00 Intake Total 1100 ml Output Total 201 ml Balance 899 ml Intake Oral 1100 ml Output Urine Total 200 ml Stool Total 1 ml # Voids 1 General Appearance: Alert, Oriented X3, Cooperative, No acute distress HEENT: Atraumatic, PERRLA, EOMI, Mucous membr. moist/pink Neck: Supple Lungs: Clear to auscultation, Normal air movement Cardiovascular: Regular rate, Normal S1, Normal S2, No murmurs, Gallops, Rubs Abdomen: Normal bowel sounds, Soft, No tenderness Extremities: Normal pulses Neuro: Cranial nerves 3-12 NL Psych/Mental Status: Mental status NL Medications Current Medications Medications Dose Ordered Sig/Tucker Route Start Time Stop Time Status Last Admin Dose Admin Nitroglycerin 0.4 mg Q5MINP PRN SL 08/31/24 11:45 Digoxin 0.125 mg DAILY PO 09/01/24 10:00 09/15/24 09:21 0.125 MG Ivabradine 5 mg BID PO 08/31/24 22:00 09/15/24 09:23 5 MG Enteral Nutritional Formula 240 ml QID PO 08/31/24 18:00 09/14/24 06:00 240 ML Apixaban 2.5 mg DAILY PO 08/31/24 15:21 09/15/24 09:22 2.5 MG Furosemide 20 mg DAILY IV 09/01/24 10:00 09/15/24 09:20 20 MG Potassium Chloride 20 meq DAILY PO 09/04/24 10:00 09/15/24 09:22 20 MEQ Spironolactone 25 mg DAILY PO 09/04/24 10:00 09/15/24 09:22 25 MG Levothyroxine Sodium 150 mcg QAM@0600 PO 09/04/24 14:15 UNV Levothyroxine Sodium 112 mcg QAM@0600 PO 09/05/24 06:00 09/15/24 05:26 112 MCG Ondansetron HCl 4 mg Q6HPRN PRN IV 09/05/24 14:30 09/13/24 05:21 4 MG Armodafinil 150 mg QAM@08 PO 09/13/24 08:00 09/15/24 09:20 150 MG Docusate Sodium 100 mg BID PO 09/13/24 10:00 09/15/24 09:22 100 MG Laboratory Results Laboratory Tests 09/12/24 13:44 Urinalysis Test 09/09/24 22:45 Urine Color Yellow (Yellow) Urine Clarity Clear (Clear) Urine pH 6.5 (5.0-9.0) Urine Specific [place] 1.023 (1.001-1.035) Urine Protein 1+ (Negative) H Urine Ketones Negative (Negative) Urine Blood Negative /uL (Negative) Urine Nitrite Negative (Negative) Urine Bilirubin Negative (Negative) Urine Urobilinogen 6 mg/dL (Negative) Urine Leukocyte Esterase Negative /uL (Negative) Urine RBC 1 /hpf (0 - 4) Urine WBC 4 /hpf (0 - 5) Urine Squamous Epithelial Cells Few /hpf (<5) Urine Bacteria None seen /hpf (None Seen) Urine Mucus Few (None Seen) Urine Glucose Normal mg/dL (Normal) Microbiology Microbiology Date/Time Source Procedure Growth Status 08/31/24 03:35 Nose MRSA Screen - Final Complete Assessment/Plan Assessment/Plan ACUTE HFrEF DCM EF <20% cachexia/ anorexia * Acute on chronic systolic heart failure * Hypothyroidism * Status post AICD. * Non-STEMI likely type 2. * s/p covid 19 * mod/severe malnutrition Continuing current management. Continuing with IV Lasix and Aldactone and also digoxin Continuing with tube feeding and mirtazapine. Continuing with ensure to help with nutrition support Encourage the patient to work with PT, to be out of bed and ambulate. pt initially requests home with HH, changed her mind and wants SNF Plan discussed with: Patient Date of Service: Sep 14, 2024 Billing Provider: KIMBERLY VALENTINO DO Common Visit Codes: [id number] INP/OBS CARE(HIGH) KIMBERLY VALENTINO DO Sep 15, 2024 14:24
--- NOTE | 2024-09-15 18:35 | DVHPN2 ---
Progress Note - Dictate Date Seen: Sep 15, 2024 Medical Necessity Reason Pt with a Central, PICC or Fol: No Subjective Patient seen and examined at bedside. On room air. No new complaints. vital signs Vital Sign Date Time Temp Pulse Resp B/P (MAP) Pulse Ox O2 Delivery O2 Flow Rate FiO2 09/15/24 17:00 98.3 98 18 95/47 (63) 93 98.3 09/15/24 08:00 Room Air* 0 21 Total Intake and Output 09/14/24 09/14/24 09/15/24 15:00 23:00 07:00 Intake Total 300 ml 800 ml Output Total 200 ml 1 ml Balance 100 ml 799 ml medications Current Medications Medications Dose Ordered Sig/Tucker Route Start Time Stop Time Status Last Admin Dose Admin Levothyroxine Sodium 150 mcg QAM@0600 PO 09/04/24 14:15 UNV objective Gen.: Patient lying in bed in no apparent distress. Breathing on room air. Head: Normocephalic, atraumatic Eyes: EOMI/PERRLA. Ears: Normal hearing. Normal anatomy. Neck/trachea: Trachea midline, supple. Nose: Normal external anatomy. Mouth: Moist mucous membranes. Chest: Decreased air entry bilaterally. No wheezing or rhonchi. Cardio vascular: Pacemaker in place. Positive S1, positive S2. Regular rate and rhythm. Abdomen: Positive bowel sounds in all 4 quadrants. Soft, non-tender, non- distended. : Deferred. Rectal: Deferred Skin: Warm, dry. Extremities: 2+ radial pulses bilaterally. No lower extremity edema. Neuro: Awake, alert, oriented x3. No gross motor or sensory deficits. Cranial nerves II through XII intact. Gait not assessed. laboratory and microbiology Laboratory Tests 09/12/24 13:44 Test 09/12/24 13:44 Range/Units Serum Glucose 106 74-106 mg/dL Assessment/Plan Impression: Acute on chronic systolic congestive heart failure COPD Pulmonary edema CHF status post AICD placement Non ST-elevation myocardial infarction Status post COVID [id number] malnutrition Dyspnea on exertion Events: Breathing comfortably on room air. No respiratory distress. Pt stable from pulm standpoint for discharge. Continue incentive spirometry Maintain euvolemia. Monitor renal function. Monitor electrolytes. Supplement as necessary. Potassium supplementation Patient awaiting heart transplant Nutritional support with Ensure. Continue Eliquis, Digoxin and spironolactone. Cardiology recs appreciated. Patient is out of bed to chair. Wound care Labs and imaging reviewed. Rest of plan as noted below. Plan: Chest x-ray imaging report reviewed. Cardiomegaly. Pulmonary edema. Small right pleural effusion. On room air Diurese to euvolemia - Lasix currently on hold d/t low blood pressure Continue spironolactone, Corlanor, digoxin Nuvigil. Continue Eliquis for AFib. Monitor ins and outs. Monitor renal function Monitor electrolytes. Supplement as necessary. Ensure for nutritional supplementation Wound care DVT prophylaxis-on Eliquis. Prognosis: Poor given multiple comorbidities. Rest of plan per hospitalist and other consultants. Thank you Dr. Skaggs for allowing me to participate in this patient's care. Further recommendations will depend on patient's clinical course. Please do not hesitate to contact me if you have any questions or concerns. This medical document was created using an electronic medical record system with [employer] dictation system. Although this document has been carefully reviewed, there may still be some phonetic and typographical errors. These areas are purely typographical due to imperfections of the software programs, and do not reflect any compromise in the patient's medical care. Dietary Evaluation Review Comments: 1) Continue to monitor pt PO intake to meed at least 75% of meals 2) Consider TESSIE BID for wound 3) Continue current plan of care Expected Outcomes/Goals: 1) Pt appetite to improve 2) F/U in 3-5 days Plan discussed with: Patient, Other (SETH Bright MD) JEOVANNY DHILLON MD Sep 15, 2024 18:34
[2024-09-15] MEDS ORDERED: NITROGLYCERIN 0.4 MG SL TAB SL PRN (23:30)
[2024-09-15] MEDS ORDERED: ONDANSETRON HCL 4 MG/2 ML VIAL IV PRN (23:30)
[2024-09-16] VITALS (8 sets, daily range): BP systolic 117–141; BP diastolic 56–71; PULSE 69–83; RESP 14–20; TEMP 97.7–98.1; O2SAT 91–98
[2024-09-16] MEDS: LEVOTHYROXINE SODIUM 112 MCG TAB PO SCH (06:21)
[2024-09-16] MEDS: Ensure HIGH Protein Chocolate 8oz Bottle PO SCH (06:21)
[2024-09-16] MEDS: APIXABAN 2.5 MG TAB PO SCH (09:11)
[2024-09-16] MEDS: DIGOXIN 0.125 MG TAB PO SCH (09:13)
[2024-09-16] MEDS: SPIRONOLACTONE 25 MG TAB PO SCH (09:14)
[2024-09-16] MEDS: POTASSIUM CHL 20 Meq TABLET PO SCH (09:14)
[2024-09-16] MEDS: ARMODAFINIL 150 MG TAB PO SCH (09:14)
[2024-09-16] MEDS: FUROSEMIDE 20 MG/2 ML VIAL IV SCH (09:14)
[2024-09-16] MEDS: DOCUSATE SOD 100 MG CAP PO SCH (09:15)
[2024-09-16] MEDS: IVABRADINE 5 MG TAB PO SCH (09:24)
[2024-09-16] MEDS: HYDROcodone-ACET 5/325MG TAB PO PRN (10:55)
[2024-09-16] MEDS: FLEET ENEMA(ADULT) 135 ML PR ONE (13:52)
--- NOTE | 2024-09-16 15:07 | DVHPN2 ---
Reviewed: Care Plan, H&P, Labs, Medications, Previous Orders, Radiology Changes from previous H/P or p: No Changes General: Per HPI Cardiovascular: Edema Objective Vitals Vital Signs Date Time Temp Pulse Resp B/P (MAP) Pulse Ox O2 Delivery O2 Flow Rate FiO2 09/16/24 13:00 97.9 71 14 138/70 (92) 98 97.9 09/16/24 08:10 Room Air* 0 21 Intake/Output Intake and Output 09/16/24 07:00 Intake Total 1770 ml Output Total 400 ml Balance 1370 ml Intake Oral 1770 ml Output Urine Total 400 ml # Voids 3 # Bowel Movements 1 General Appearance: Alert, Oriented X3, Cooperative, No acute distress HEENT: Atraumatic, PERRLA, EOMI, Mucous membr. moist/pink Neck: Supple Lungs: Clear to auscultation, Normal air movement Cardiovascular: Regular rate, Normal S1, Normal S2, No murmurs, Gallops, Rubs Abdomen: Normal bowel sounds, Soft, No tenderness Extremities: Normal pulses Neuro: Cranial nerves 3-12 NL Psych/Mental Status: Mental status NL Medications Current Medications Medications Dose Ordered Sig/Tucker Route Start Time Stop Time Status Last Admin Dose Admin Levothyroxine Sodium 150 mcg QAM@0600 PO 09/04/24 14:15 UNV Nitroglycerin 0.4 mg Q5MINP PRN SL 09/15/24 23:30 Digoxin 0.125 mg DAILY PO 09/16/24 10:00 09/16/24 09:13 0.125 MG Ivabradine 5 mg BID PO 09/16/24 10:00 09/16/24 09:24 5 MG Enteral Nutritional Formula 240 ml QID PO 09/16/24 06:00 09/16/24 12:00 240 ML Apixaban 2.5 mg DAILY PO 09/16/24 10:00 09/16/24 09:11 2.5 MG Furosemide 20 mg DAILY IV 09/16/24 10:00 09/16/24 09:14 20 MG Potassium Chloride 20 meq DAILY PO 09/16/24 10:00 09/16/24 09:14 20 MEQ Spironolactone 25 mg DAILY PO 09/16/24 10:00 09/16/24 09:14 25 MG Levothyroxine Sodium 112 mcg QAM@0600 PO 09/16/24 06:00 09/16/24 06:21 112 MCG Ondansetron HCl 4 mg Q6HPRN PRN IV 09/15/24 23:30 Armodafinil 150 mg QAM@08 PO 09/16/24 08:00 09/16/24 09:14 150 MG Docusate Sodium 100 mg BID PO 09/16/24 10:00 09/16/24 09:15 100 MG Acetaminophen/ Hydrocodone Bitart 1 tab Q6HPRN PRN PO 09/16/24 10:30 09/16/24 14:39 1 TAB Laboratory Results Laboratory Tests 09/12/24 13:44 Urinalysis Test 09/09/24 22:45 Urine Color Yellow (Yellow) Urine Clarity Clear (Clear) Urine pH 6.5 (5.0-9.0) Urine Specific [place] 1.023 (1.001-1.035) Urine Protein 1+ (Negative) H Urine Ketones Negative (Negative) Urine Blood Negative /uL (Negative) Urine Nitrite Negative (Negative) Urine Bilirubin Negative (Negative) Urine Urobilinogen 6 mg/dL (Negative) Urine Leukocyte Esterase Negative /uL (Negative) Urine RBC 1 /hpf (0 - 4) Urine WBC 4 /hpf (0 - 5) Urine Squamous Epithelial Cells Few /hpf (<5) Urine Bacteria None seen /hpf (None Seen) Urine Mucus Few (None Seen) Urine Glucose Normal mg/dL (Normal) Microbiology Microbiology Date/Time Source Procedure Growth Status 08/31/24 03:35 Nose MRSA Screen - Final Complete Assessment/Plan Assessment/Plan ACUTE HFrEF DCM EF <20% cachexia/ anorexia * Acute on chronic systolic heart failure * Hypothyroidism * Status post AICD. * Non-STEMI likely type 2. * s/p covid 19 * mod/severe malnutrition Continuing current management. Continuing with IV Lasix and Aldactone and also digoxin Continuing with tube feeding and mirtazapine. Continuing with ensure to help with nutrition support Encourage the patient to work with PT, to be out of bed and ambulate. pt initially requests home with HH, changed her mind and wants SNF pending placement per daughter, she would like to discuss with DR Patterson and have Dr Patterson cleared her discharge. daughter refuses to have pt discharged until cleared by Dr Patterson Plan discussed with: Patient My Orders Orders - KIMBERLY VALENTINO DO Procedure Category Date Status Time Armodafinil (Nuvigil) PHA 09/16/24 In Process 08:00 Cardiac DIET 09/16/24 Transmitted Diet-2gna,Lofat,Lochol Breakfast Hydrocodone-Acet PHA 09/16/24 In Process 5/325mg Tab ([place] 10:30 Date of Service: Sep 16, 2024 Billing Provider: KIMBERLY VALENTINO DO Common Visit Codes: [id number] INP/OBS CARE(HIGH) KIMBERLY VALENTINO DO Sep 16, 2024 15:07
[2024-09-17 05:00] VITALS: BP 123/67; PULSE 72; RESP 20; TEMP 97.9; O2SAT 94
[2024-09-17 08:00] VITALS: BP 106/67; PULSE 70; PULSE 71; RESP 20; TEMP 97.8; O2SAT 99
--- NOTE | 2024-09-17 08:46 | DVHPN2 ---
Progress Note - Dictate Date Seen: Sep 17, 2024 Medical Necessity Reason Pt with a Central, PICC or Fol: No Subjective HFrEF ACUTE DILATED CM S/P AICD HTN NOW WITH MARKED ELEVATED BNP ACUTE HFrEF DCM EF <20% cachexia/ anorexia NORMAL CORONARIES EF <20% S/P MITRAL VALVE CLIP BILATERAL PLEURAL EFFUSION HX OF THORACENTESIS NOW WITH ACUTE DECOMPENSATION NO CLINICAL OR RADIOGRAPHIC EVIDENCE FOR PNEUMONIA INCREASE SYNTHROID TO 200 CORRECT HYPOKALEMIA PT ADMITTED TO [facility] EV[facility]UATED FOR HEART TRANSPLANT CURRENTLY NOT A CANDIDATE BECAUSE OF CACHEXIA S/P G TUBE PLACEMENT FOR NUTRITIONAL SUPPORT ONCE PT HAS ADEQUATE IMPROVEMENT IN NUTRITIONAL STATUS AND STRENGTH PT CAN BE BECOME ELIBILE FOR HEART TRANSPLANT vital signs Vital Sign Date Time Temp Pulse Resp B/P (MAP) Pulse Ox O2 Delivery O2 Flow Rate FiO2 09/17/24 05:00 97.9 72 20 123/67 (85) 94 97.9 09/16/24 20:00 Room Air* 0 21 Total Intake and Output 09/16/24 09/16/24 09/17/24 15:00 23:00 07:00 Intake Total 0 ml 200 ml 220 ml Balance 0 ml 200 ml 220 ml medications Current Medications Medications Dose Ordered Sig/Tucker Route Start Time Stop Time Status Last Admin Dose Admin Levothyroxine Sodium 150 mcg QAM@0600 PO 09/04/24 14:15 UNV Nitroglycerin 0.4 mg Q5MINP PRN SL 09/15/24 23:30 Digoxin 0.125 mg DAILY PO 09/16/24 10:00 09/16/24 09:13 0.125 MG Ivabradine 5 mg BID PO 09/16/24 10:00 09/16/24 21:58 5 MG Enteral Nutritional Formula 240 ml QID PO 09/16/24 06:00 09/16/24 18:24 240 ML Apixaban 2.5 mg DAILY PO 09/16/24 10:00 09/16/24 09:11 2.5 MG Furosemide 20 mg DAILY IV 09/16/24 10:00 09/16/24 09:14 20 MG Potassium Chloride 20 meq DAILY PO 09/16/24 10:00 09/16/24 09:14 20 MEQ Spironolactone 25 mg DAILY PO 09/16/24 10:00 09/16/24 09:14 25 MG Levothyroxine Sodium 112 mcg QAM@0600 PO 09/16/24 06:00 09/17/24 05:35 112 MCG Ondansetron HCl 4 mg Q6HPRN PRN IV 09/15/24 23:30 Armodafinil 150 mg QAM@08 PO 09/16/24 08:00 09/16/24 09:14 150 MG Docusate Sodium 100 mg BID PO 09/16/24 10:00 09/16/24 21:58 100 MG Acetaminophen/ Hydrocodone Bitart 1 tab Q6HPRN PRN PO 09/16/24 10:30 09/17/24 05:36 1 TAB laboratory and microbiology Laboratory Tests 09/12/24 13:44 Test 09/12/24 13:44 Range/Units Serum Glucose 106 74-106 mg/dL Problem List HFrEF ACUTE DILATED CM S/P AICD HTN NOW WITH MARKED ELEVATED BNP ACUTE HFrEF DCM EF <20% cachexia/ anorexia NORMAL CORONARIES EF <20% S/P MITRAL VALVE CLIP BILATERAL PLEURAL EFFUSION HX OF THORACENTESIS NOW WITH ACUTE DECOMPENSATION NO CLINICAL OR RADIOGRAPHIC EVIDENCE FOR PNEUMONIA INCREASE SYNTHROID TO 200 CORRECT HYPOKALEMIA PT ADMITTED TO [facility] FOR HEART TRANSPLANT CURRENTLY NOT A CANDIDATE BECAUSE OF CACHEXIA S/P G TUBE PLACEMENT FOR NUTRITIONAL SUPPORT ONCE PT HAS ADEQUATE IMPROVEMENT IN NUTRITIONAL STATUS AND STRENGTH PT CAN BE BECOME ELIBILE FOR HEART TRANSPLANT Assessment/Plan TITRATE ON MEDS PT INCREASE NUTRITIONAL SUPPLEMENT WITH DIG AND CORLANOR HEART RATE CONTROLED START MEGACE DIC PANEL CONSIDER BONE MARROW BX ITP R/O START MEGACE INCREASE SYNTHROID TO 150 lise START PT ON PROVIGIL OR NUVIGIL DC ALL SEDATION PHYSICAL THERAPY ALL LABS UA BNP ECHO EF <10% LVH E CLIP NOTED LEFT PLEURAL EFFUSION Dietary Evaluation Review Comments: 1) Continue to monitor pt PO intake to meed at least 75% of meals 2) Consider TESSIE BID for wound 3) Continue current plan of care Expected Outcomes/Goals: 1) Pt appetite to improve 2) F/U in 3-5 days Plan discussed with: Patient KALLIE GLASGOW MD Sep 17, 2024 08:46
--- NOTE | 2024-09-17 11:24 | DVHPN2 ---
Subjective The patient seen and examined at bedside. Complain of rectal pain. Still no have no appetite. Very weak Reviewed: Care Plan, H&P, Labs, Medications, Previous Orders, Radiology Changes from previous H/P or p: No Changes General: Per HPI Cardiovascular: Edema Objective Vitals Vital Signs Date Time Temp Pulse Resp B/P (MAP) Pulse Ox O2 Delivery O2 Flow Rate FiO2 09/17/24 10:27 71 09/17/24 10:26 106/67 09/17/24 08:00 97.8 20 99 97.8 09/16/24 20:00 Room Air* 0 21 Intake/Output Intake and Output 09/17/24 07:00 Intake Total 420 ml Balance 420 ml Intake Oral 420 ml # Voids 7 # Bowel Movements 7 General Appearance: Alert, No acute distress HEENT: Atraumatic, PERRLA, EOMI, Mucous membr. moist/pink Neck: Supple Lungs: Clear to auscultation, Normal air movement Cardiovascular: Regular rate, Normal S1, Normal S2, No murmurs, Gallops, Rubs Abdomen: Normal bowel sounds, Soft, No tenderness Extremities: Normal pulses Neuro: Cranial nerves 3-12 NL Psych/Mental Status: Mental status NL Medications Current Medications Medications Dose Ordered Sig/Tucker Route Start Time Stop Time Status Last Admin Dose Admin Levothyroxine Sodium 150 mcg QAM@0600 PO 09/04/24 14:15 UNV Nitroglycerin 0.4 mg Q5MINP PRN SL 09/15/24 23:30 Digoxin 0.125 mg DAILY PO 09/16/24 10:00 09/17/24 10:27 0.125 MG Ivabradine 5 mg BID PO 09/16/24 10:00 09/17/24 10:27 5 MG Enteral Nutritional Formula 240 ml QID PO 09/16/24 06:00 09/16/24 18:24 240 ML Apixaban 2.5 mg DAILY PO 09/16/24 10:00 09/17/24 10:26 2.5 MG Furosemide 20 mg DAILY IV 09/16/24 10:00 09/17/24 10:26 20 MG Potassium Chloride 20 meq DAILY PO 09/16/24 10:00 09/17/24 10:27 20 MEQ Spironolactone 25 mg DAILY PO 09/16/24 10:00 09/17/24 10:26 25 MG Levothyroxine Sodium 112 mcg QAM@0600 PO 09/16/24 06:00 09/17/24 05:35 112 MCG Ondansetron HCl 4 mg Q6HPRN PRN IV 09/15/24 23:30 Armodafinil 150 mg QAM@08 PO 09/16/24 08:00 09/17/24 08:45 150 MG Docusate Sodium 100 mg BID PO 09/16/24 10:00 09/17/24 10:27 100 MG Acetaminophen/ Hydrocodone Bitart 1 tab Q6HPRN PRN PO 09/16/24 10:30 09/17/24 05:36 1 TAB Laboratory Results Laboratory Tests 09/12/24 13:44 Urinalysis Test 09/09/24 22:45 Urine Color Yellow (Yellow) Urine Clarity Clear (Clear) Urine pH 6.5 (5.0-9.0) Urine Specific [place] 1.023 (1.001-1.035) Urine Protein 1+ (Negative) H Urine Ketones Negative (Negative) Urine Blood Negative /uL (Negative) Urine Nitrite Negative (Negative) Urine Bilirubin Negative (Negative) Urine Urobilinogen 6 mg/dL (Negative) Urine Leukocyte Esterase Negative /uL (Negative) Urine RBC 1 /hpf (0 - 4) Urine WBC 4 /hpf (0 - 5) Urine Squamous Epithelial Cells Few /hpf (<5) Urine Bacteria None seen /hpf (None Seen) Urine Mucus Few (None Seen) Urine Glucose Normal mg/dL (Normal) Microbiology Microbiology Date/Time Source Procedure Growth Status 08/31/24 03:35 Nose MRSA Screen - Final Complete Labs and/or images reviewed: Labs reviewed by me Assessment/Plan Assessment/Plan * Acute on chronic systolic heart failure * Hypothyroidism * Status post AICD. * Non-STEMI likely type 2. * s/p covid 19 * mod/severe malnutrition Continuing current management. Continuing with IV Lasix and Aldactone and also digoxin Continuing with tube feeding and mirtazapine. Continuing with ensure to help with nutrition support We will add Megace to her regimen to stimulate her appetite Encourage the patient to work with PT, to be out of bed and ambulate. Waiting for Dr. Philip to see the patient Plan discussed with: Patient Date of Service: Sep 17, 2024 Billing Provider: CARLI MONTERROSO MD Common Visit Codes: [id number] INP/OBS CARE(HIGH) CARLI MONTERROSO MD Sep 17, 2024 11:24
--- NOTE | 2024-09-17 11:25 | DVHPN2 ---
Subjective The patient seen and examined at bedside. No complains. Reviewed: Care Plan, H&P, Labs, Medications, Previous Orders, Radiology General: Per HPI Cardiovascular: Edema Objective Vitals Vital Signs Date Time Temp Pulse Resp B/P (MAP) Pulse Ox O2 Delivery O2 Flow Rate FiO2 09/17/24 10:27 71 09/17/24 10:26 106/67 09/17/24 08:00 97.8 20 99 97.8 09/16/24 20:00 Room Air* 0 21 Intake/Output Intake and Output 09/17/24 07:00 Intake Total 420 ml Balance 420 ml Intake Oral 420 ml # Voids 7 # Bowel Movements 7 General Appearance: Alert, Oriented X3, Cooperative, No acute distress HEENT: Atraumatic, PERRLA, EOMI, Mucous membr. moist/pink Neck: Supple Lungs: Clear to auscultation, Normal air movement Cardiovascular: Regular rate, Normal S1, Normal S2, No murmurs, Gallops, Rubs Abdomen: Normal bowel sounds, Soft, No tenderness Extremities: Normal pulses Neuro: Cranial nerves 3-12 NL Psych/Mental Status: Mental status NL Medications Current Medications Medications Dose Ordered Sig/Tucker Route Start Time Stop Time Status Last Admin Dose Admin Levothyroxine Sodium 150 mcg QAM@0600 PO 09/04/24 14:15 UNV Nitroglycerin 0.4 mg Q5MINP PRN SL 09/15/24 23:30 Digoxin 0.125 mg DAILY PO 09/16/24 10:00 09/17/24 10:27 0.125 MG Ivabradine 5 mg BID PO 09/16/24 10:00 09/17/24 10:27 5 MG Enteral Nutritional Formula 240 ml QID PO 09/16/24 06:00 09/16/24 18:24 240 ML Apixaban 2.5 mg DAILY PO 09/16/24 10:00 09/17/24 10:26 2.5 MG Furosemide 20 mg DAILY IV 09/16/24 10:00 09/17/24 10:26 20 MG Potassium Chloride 20 meq DAILY PO 09/16/24 10:00 09/17/24 10:27 20 MEQ Spironolactone 25 mg DAILY PO 09/16/24 10:00 09/17/24 10:26 25 MG Levothyroxine Sodium 112 mcg QAM@0600 PO 09/16/24 06:00 09/17/24 05:35 112 MCG Ondansetron HCl 4 mg Q6HPRN PRN IV 09/15/24 23:30 Armodafinil 150 mg QAM@08 PO 09/16/24 08:00 09/17/24 08:45 150 MG Docusate Sodium 100 mg BID PO 09/16/24 10:00 09/17/24 10:27 100 MG Acetaminophen/ Hydrocodone Bitart 1 tab Q6HPRN PRN PO 09/16/24 10:30 09/17/24 05:36 1 TAB Laboratory Results Laboratory Tests 09/12/24 13:44 Urinalysis Test 09/09/24 22:45 Urine Color Yellow (Yellow) Urine Clarity Clear (Clear) Urine pH 6.5 (5.0-9.0) Urine Specific [place] 1.023 (1.001-1.035) Urine Protein 1+ (Negative) H Urine Ketones Negative (Negative) Urine Blood Negative /uL (Negative) Urine Nitrite Negative (Negative) Urine Bilirubin Negative (Negative) Urine Urobilinogen 6 mg/dL (Negative) Urine Leukocyte Esterase Negative /uL (Negative) Urine RBC 1 /hpf (0 - 4) Urine WBC 4 /hpf (0 - 5) Urine Squamous Epithelial Cells Few /hpf (<5) Urine Bacteria None seen /hpf (None Seen) Urine Mucus Few (None Seen) Urine Glucose Normal mg/dL (Normal) Microbiology Microbiology Date/Time Source Procedure Growth Status 08/31/24 03:35 Nose MRSA Screen - Final Complete Assessment/Plan Assessment/Plan * Acute on chronic systolic heart failure * Hypothyroidism * Status post AICD. * Non-STEMI likely type 2. * s/p covid 19 * mod/severe malnutrition Continuing current management. Continuing with IV Lasix and Aldactone and also digoxin Continuing with tube feeding and mirtazapine. Continuing with ensure to help with nutrition support Encourage the patient to work with PT, to be out of bed and ambulate. CARLI MONTERROSO MD Sep 17, 2024 11:25
[2024-09-17 12:00] VITALS: BP 123/64; PULSE 74; RESP 20; TEMP 98.3; O2SAT 97
[2024-09-17 16:00] VITALS: BP 131/62; PULSE 70; RESP 20; TEMP 97.7; O2SAT 98
--- NOTE | 2024-09-17 19:54 | DVHPN2 ---
Progress Note - Dictate Date Seen: Sep 16, 2024 Medical Necessity Reason Pt with a Central, PICC or Fol: No Subjective Patient seen and examined at bedside. On room air. No new complaints. vital signs Vital Sign Date Time Temp Pulse Resp B/P (MAP) Pulse Ox O2 Delivery O2 Flow Rate FiO2 09/17/24 16:00 97.7 70 20 131/62 (85) 98 97.7 09/17/24 08:00 Room Air* 0 21 Total Intake and Output 09/16/24 09/16/24 09/17/24 15:00 23:00 07:00 Intake Total 0 ml 200 ml 220 ml Balance 0 ml 200 ml 220 ml medications Current Medications Medications Dose Ordered Sig/Tucker Route Start Time Stop Time Status Last Admin Dose Admin Levothyroxine Sodium 150 mcg QAM@0600 PO 09/04/24 14:15 UNV Nitroglycerin 0.4 mg Q5MINP PRN SL 09/15/24 23:30 Digoxin 0.125 mg DAILY PO 09/16/24 10:00 09/17/24 10:27 0.125 MG Ivabradine 5 mg BID PO 09/16/24 10:00 09/17/24 10:27 5 MG Enteral Nutritional Formula 240 ml QID PO 09/16/24 06:00 09/16/24 18:24 240 ML Apixaban 2.5 mg DAILY PO 09/16/24 10:00 09/17/24 10:26 2.5 MG Furosemide 20 mg DAILY IV 09/16/24 10:00 09/17/24 10:26 20 MG Potassium Chloride 20 meq DAILY PO 09/16/24 10:00 09/17/24 10:27 20 MEQ Spironolactone 25 mg DAILY PO 09/16/24 10:00 09/17/24 10:26 25 MG Levothyroxine Sodium 112 mcg QAM@0600 PO 09/16/24 06:00 09/17/24 05:35 112 MCG Ondansetron HCl 4 mg Q6HPRN PRN IV 09/15/24 23:30 Armodafinil 150 mg QAM@08 PO 09/16/24 08:00 09/17/24 08:45 150 MG Docusate Sodium 100 mg BID PO 09/16/24 10:00 09/17/24 10:27 100 MG Acetaminophen/ Hydrocodone Bitart 1 tab Q6HPRN PRN PO 09/16/24 10:30 09/17/24 18:34 1 TAB objective Gen.: Patient lying in bed in no apparent distress. Breathing on room air. Head: Normocephalic, atraumatic Eyes: EOMI/PERRLA. Ears: Normal hearing. Normal anatomy. Neck/trachea: Trachea midline, supple. Nose: Normal external anatomy. Mouth: Moist mucous membranes. Chest: Decreased air entry bilaterally. No wheezing or rhonchi. Cardio vascular: Pacemaker in place. Positive S1, positive S2. Regular rate and rhythm. Abdomen: Positive bowel sounds in all 4 quadrants. Soft, non-tender, non- distended. : Deferred. Rectal: Deferred Skin: Warm, dry. Extremities: 2+ radial pulses bilaterally. No lower extremity edema. Neuro: Awake, alert, oriented x3. No gross motor or sensory deficits. Cranial nerves II through XII intact. Gait not assessed. laboratory and microbiology Laboratory Tests 09/12/24 13:44 Test 09/12/24 13:44 Range/Units Serum Glucose 106 74-106 mg/dL Assessment/Plan Impression: Acute on chronic systolic congestive heart failure COPD Pulmonary edema CHF status post AICD placement Non ST-elevation myocardial infarction Status post COVID Giewlsdf-[id number] malnutrition Dyspnea on exertion Events: Breathing comfortably on room air. No respiratory distress. Continue incentive spirometry Maintain euvolemia. Monitor renal function. Monitor electrolytes. Supplement as necessary. Potassium supplementation Patient awaiting heart transplant Nutritional support with Ensure. Continue Eliquis, Digoxin and spironolactone. Cardiology recs appreciated. Patient is out of bed to chair. Wound care Labs and imaging reviewed. Rest of plan as noted below. Plan: Chest x-ray imaging report reviewed. Cardiomegaly. Pulmonary edema. Small right pleural effusion. On room air Diurese to euvolemia - Lasix currently on hold d/t low blood pressure Continue spironolactone, Corlanor, digoxin Nuvigil. Continue Eliquis for AFib. Monitor ins and outs. Monitor renal function Monitor electrolytes. Supplement as necessary. Ensure for nutritional supplementation Wound care DVT prophylaxis-on Eliquis. Prognosis: Poor given multiple comorbidities. Rest of plan per hospitalist and other consultants. Thank you Dr. Skaggs for allowing me to participate in this patient's care. Further recommendations will depend on patient's clinical course. Please do not hesitate to contact me if you have any questions or concerns. This medical document was created using an electronic medical record system with [employer] dictation system. Although this document has been carefully reviewed, there may still be some phonetic and typographical errors. These areas are purely typographical due to imperfections of the software programs, and do not reflect any compromise in the patient's medical care. Dietary Evaluation Review Comments: 1) Continue to monitor pt PO intake to meed at least 75% of meals 2) Consider TESSIE BID for wound 3) Continue current plan of care Expected Outcomes/Goals: 1) Pt appetite to improve 2) F/U in 3-5 days Plan discussed with: Patient, Other (RN, MD) JEOVANNY DHILLON MD Sep 17, 2024 19:54
[2024-09-17 20:00] VITALS: PULSE 70
[2024-09-17 22:00] VITALS: BP 131/68; PULSE 71; RESP 22; TEMP 97.8; O2SAT 99
--- NOTE | 2024-09-17 22:28 | DVHPN2 ---
Progress Note - Dictate Date Seen: Sep 17, 2024 Medical Necessity Reason Pt with a Central, PICC or Fol: No Subjective Patient seen and examined at bedside. On room air. No new complaints. vital signs Vital Sign Date Time Temp Pulse Resp B/P (MAP) Pulse Ox O2 Delivery O2 Flow Rate FiO2 09/17/24 16:00 97.7 70 20 131/62 (85) 98 97.7 09/17/24 08:00 Room Air* 0 21 Total Intake and Output 09/16/24 09/16/24 09/17/24 15:00 23:00 07:00 Intake Total 0 ml 200 ml 220 ml Balance 0 ml 200 ml 220 ml medications Current Medications Medications Dose Ordered Sig/Tucker Route Start Time Stop Time Status Last Admin Dose Admin Levothyroxine Sodium 150 mcg QAM@0600 PO 09/04/24 14:15 UNV Nitroglycerin 0.4 mg Q5MINP PRN SL 09/15/24 23:30 Digoxin 0.125 mg DAILY PO 09/16/24 10:00 09/17/24 10:27 0.125 MG Ivabradine 5 mg BID PO 09/16/24 10:00 09/17/24 10:27 5 MG Enteral Nutritional Formula 240 ml QID PO 09/16/24 06:00 09/16/24 18:24 240 ML Apixaban 2.5 mg DAILY PO 09/16/24 10:00 09/17/24 10:26 2.5 MG Furosemide 20 mg DAILY IV 09/16/24 10:00 09/17/24 10:26 20 MG Potassium Chloride 20 meq DAILY PO 09/16/24 10:00 09/17/24 10:27 20 MEQ Spironolactone 25 mg DAILY PO 09/16/24 10:00 09/17/24 10:26 25 MG Levothyroxine Sodium 112 mcg QAM@0600 PO 09/16/24 06:00 09/17/24 05:35 112 MCG Ondansetron HCl 4 mg Q6HPRN PRN IV 09/15/24 23:30 Armodafinil 150 mg QAM@08 PO 09/16/24 08:00 09/17/24 08:45 150 MG Docusate Sodium 100 mg BID PO 09/16/24 10:00 09/17/24 10:27 100 MG Acetaminophen/ Hydrocodone Bitart 1 tab Q6HPRN PRN PO 09/16/24 10:30 09/17/24 18:34 1 TAB objective Gen.: Patient lying in bed in no apparent distress. Breathing on room air. Head: Normocephalic, atraumatic Eyes: EOMI/PERRLA. Ears: Normal hearing. Normal anatomy. Neck/trachea: Trachea midline, supple. Nose: Normal external anatomy. Mouth: Moist mucous membranes. Chest: Decreased air entry bilaterally. No wheezing or rhonchi. Cardio vascular: Pacemaker in place. Positive S1, positive S2. Regular rate and rhythm. Abdomen: Positive bowel sounds in all 4 quadrants. Soft, non-tender, non- distended. : Deferred. Rectal: Deferred Skin: Warm, dry. Extremities: 2+ radial pulses bilaterally. No lower extremity edema. Neuro: Awake, alert, oriented x3. No gross motor or sensory deficits. Cranial nerves II through XII intact. Gait not assessed. laboratory and microbiology Laboratory Tests 09/12/24 13:44 Test 09/12/24 13:44 Range/Units Serum Glucose 106 74-106 mg/dL Assessment/Plan Impression: Acute on chronic systolic congestive heart failure COPD Pulmonary edema CHF status post AICD placement Non ST-elevation myocardial infarction Status post COVID Pdthwrti-it-bgpcnc malnutrition Dyspnea on exertion Events: Breathing comfortably on room air. No respiratory distress. Continue incentive spirometry On spironolactone/Digoxin Diurese as tolerated on Lasix 20 mg IV QD Monitor renal function. Monitor electrolytes. Supplement as necessary. Potassium supplementation Cardiology recs appreciated. Patient awaiting heart transplant Nutritional support with Ensure. Continue Eliquis for DVT prophylaxis. Wound care Labs and imaging reviewed. Rest of plan as noted below. Plan: Chest x-ray imaging report reviewed. Cardiomegaly. Pulmonary edema. Small right pleural effusion. On room air Diurese to euvolemia Continue spironolactone, Corlanor, digoxin Nuvigil. Continue Eliquis for AFib. Monitor ins and outs. Monitor renal function Monitor electrolytes. Supplement as necessary. Ensure for nutritional supplementation Wound care DVT prophylaxis-on Eliquis. Prognosis: Poor given multiple comorbidities. Rest of plan per hospitalist and other consultants. Thank you Dr. Skaggs for allowing me to participate in this patient's care. Further recommendations will depend on patient's clinical course. Please do not hesitate to contact me if you have any questions or concerns. This medical document was created using an electronic medical record system with [employer] dictation system. Although this document has been carefully reviewed, there may still be some phonetic and typographical errors. These areas are purely typographical due to imperfections of the software programs, and do not reflect any compromise in the patient's medical care. Dietary Evaluation Review Comments: 1) Continue to monitor pt PO intake to meed at least 75% of meals 2) Consider TESSIE BID for wound 3) Continue current plan of care Expected Outcomes/Goals: 1) Pt appetite to improve 2) F/U in 3-5 days Plan discussed with: Patient, Other (SETH Wilubrn) JEOVANNY DHILLON MD Sep 17, 2024 22:28
[2024-09-18] VITALS (8 sets, daily range): BP systolic 103–146; BP diastolic 58–66; PULSE 67–70; RESP 16–22; TEMP 97.9–98.3; O2SAT 96–99
--- NOTE | 2024-09-18 11:32 | DVHPN2 ---
Subjective The patient seen and examined at bedside. Complain of rectal pain. Still no have no appetite. Very weak Reviewed: Care Plan, H&P, Labs, Medications, Previous Orders, Radiology Changes from previous H/P or p: No Changes General: Per HPI Cardiovascular: Edema Objective Vitals Vital Signs Date Time Temp Pulse Resp B/P (MAP) Pulse Ox O2 Delivery O2 Flow Rate FiO2 09/18/24 09:16 70 09/18/24 09:14 117/64 09/18/24 09:00 97.9 17 96 97.9 09/18/24 08:00 Room Air* 0 21 Intake/Output Intake and Output 09/18/24 07:00 Intake Total 365 ml Balance 365 ml Intake Oral 365 ml # Voids 10 # Bowel Movements 10 General Appearance: Alert, No acute distress HEENT: Atraumatic, PERRLA, EOMI, Mucous membr. moist/pink Neck: Supple Lungs: Clear to auscultation, Normal air movement Cardiovascular: Regular rate, Normal S1, Normal S2, No murmurs, Gallops, Rubs Abdomen: Normal bowel sounds, Soft, No tenderness Extremities: Normal pulses Neuro: Cranial nerves 3-12 NL Psych/Mental Status: Mental status NL Medications Current Medications Medications Dose Ordered Sig/Tucker Route Start Time Stop Time Status Last Admin Dose Admin Levothyroxine Sodium 150 mcg QAM@0600 PO 09/04/24 14:15 UNV Nitroglycerin 0.4 mg Q5MINP PRN SL 09/15/24 23:30 Digoxin 0.125 mg DAILY PO 09/16/24 10:00 09/18/24 09:16 0.125 MG Ivabradine 5 mg BID PO 09/16/24 10:00 09/18/24 09:15 5 MG Enteral Nutritional Formula 240 ml QID PO 09/16/24 06:00 09/16/24 18:24 240 ML Apixaban 2.5 mg DAILY PO 09/16/24 10:00 09/18/24 09:16 2.5 MG Furosemide 20 mg DAILY IV 09/16/24 10:00 09/18/24 09:14 20 MG Potassium Chloride 20 meq DAILY PO 09/16/24 10:00 09/18/24 09:15 20 MEQ Spironolactone 25 mg DAILY PO 09/16/24 10:00 09/18/24 09:15 25 MG Levothyroxine Sodium 112 mcg QAM@0600 PO 09/16/24 06:00 09/18/24 06:50 112 MCG Ondansetron HCl 4 mg Q6HPRN PRN IV 09/15/24 23:30 Armodafinil 150 mg QAM@08 PO 09/16/24 08:00 09/18/24 09:31 150 MG Docusate Sodium 100 mg BID PO 09/16/24 10:00 09/18/24 09:15 100 MG Acetaminophen/ Hydrocodone Bitart 1 tab Q6HPRN PRN PO 09/16/24 10:30 09/18/24 03:36 1 TAB Laboratory Results Laboratory Tests 09/12/24 13:44 Urinalysis Test 09/09/24 22:45 Urine Color Yellow (Yellow) Urine Clarity Clear (Clear) Urine pH 6.5 (5.0-9.0) Urine Specific [place] 1.023 (1.001-1.035) Urine Protein 1+ (Negative) H Urine Ketones Negative (Negative) Urine Blood Negative /uL (Negative) Urine Nitrite Negative (Negative) Urine Bilirubin Negative (Negative) Urine Urobilinogen 6 mg/dL (Negative) Urine Leukocyte Esterase Negative /uL (Negative) Urine RBC 1 /hpf (0 - 4) Urine WBC 4 /hpf (0 - 5) Urine Squamous Epithelial Cells Few /hpf (<5) Urine Bacteria None seen /hpf (None Seen) Urine Mucus Few (None Seen) Urine Glucose Normal mg/dL (Normal) Microbiology Microbiology Date/Time Source Procedure Growth Status 08/31/24 03:35 Nose MRSA Screen - Final Complete Labs and/or images reviewed: Labs reviewed by me Assessment/Plan Assessment/Plan * Acute on chronic systolic heart failure * Hypothyroidism * Status post AICD. * Non-STEMI likely type 2. * s/p covid 19 * mod/severe malnutrition Continuing current management. Continuing with IV Lasix and Aldactone and also digoxin Continuing with tube feeding and mirtazapine. Continuing with ensure to help with nutrition support We will add Megace to her regimen to stimulate her appetite Encourage patient to eat. Encourage the patient to work with PT, to be out of bed and ambulate. Plan discussed with: Patient, Spouse Date of Service: Sep 18, 2024 Billing Provider: CARLI MONTERROSO MD Common Visit Codes: [id number] INP/OBS CARE(HIGH) CARLI MONTERROSO MD Sep 18, 2024 11:32
--- NOTE | 2024-09-18 21:01 | DVHPN2 ---
Progress Note - Dictate Date Seen: Sep 18, 2024 Medical Necessity Reason Pt with a Central, PICC or Fol: No Subjective Patient seen and examined at bedside. On room air. No new complaints. vital signs Vital Sign Date Time Temp Pulse Resp B/P (MAP) Pulse Ox O2 Delivery O2 Flow Rate FiO2 09/18/24 17:00 98.2 70 16 146/62 (90) 98 98.2 09/18/24 08:00 Room Air* 0 21 Total Intake and Output 09/17/24 09/17/24 09/18/24 15:00 23:00 07:00 Intake Total 240 ml 125 ml Balance 240 ml 125 ml medications Current Medications Medications Dose Ordered Sig/Tucker Route Start Time Stop Time Status Last Admin Dose Admin Levothyroxine Sodium 150 mcg QAM@0600 PO 09/04/24 14:15 UNV Nitroglycerin 0.4 mg Q5MINP PRN SL 09/15/24 23:30 Digoxin 0.125 mg DAILY PO 09/16/24 10:00 09/18/24 09:16 0.125 MG Ivabradine 5 mg BID PO 09/16/24 10:00 09/18/24 09:15 5 MG Enteral Nutritional Formula 240 ml QID PO 09/16/24 06:00 09/16/24 18:24 240 ML Apixaban 2.5 mg DAILY PO 09/16/24 10:00 09/18/24 09:16 2.5 MG Furosemide 20 mg DAILY IV 09/16/24 10:00 09/18/24 09:14 20 MG Potassium Chloride 20 meq DAILY PO 09/16/24 10:00 09/18/24 09:15 20 MEQ Spironolactone 25 mg DAILY PO 09/16/24 10:00 09/18/24 09:15 25 MG Levothyroxine Sodium 112 mcg QAM@0600 PO 09/16/24 06:00 09/18/24 06:50 112 MCG Ondansetron HCl 4 mg Q6HPRN PRN IV 09/15/24 23:30 Armodafinil 150 mg QAM@08 PO 09/16/24 08:00 09/18/24 09:31 150 MG Docusate Sodium 100 mg BID PO 09/16/24 10:00 09/18/24 09:15 100 MG Acetaminophen/ Hydrocodone Bitart 1 tab Q6HPRN PRN PO 09/16/24 10:30 09/18/24 03:36 1 TAB objective Gen.: Patient lying in bed in no apparent distress. Breathing on room air. Head: Normocephalic, atraumatic Eyes: EOMI/PERRLA. Ears: Normal hearing. Normal anatomy. Neck/trachea: Trachea midline, supple. Nose: Normal external anatomy. Mouth: Moist mucous membranes. Chest: Decreased air entry bilaterally. No wheezing or rhonchi. Cardio vascular: Pacemaker in place. Positive S1, positive S2. Regular rate and rhythm. Abdomen: Positive bowel sounds in all 4 quadrants. Soft, non-tender, non- distended. : Deferred. Rectal: Deferred Skin: Warm, dry. Extremities: 2+ radial pulses bilaterally. No lower extremity edema. Neuro: Awake, alert, oriented x3. No gross motor or sensory deficits. Cranial nerves II through XII intact. Gait not assessed. laboratory and microbiology Laboratory Tests 09/12/24 13:44 Test 09/12/24 13:44 Range/Units Serum Glucose 106 74-106 mg/dL Assessment/Plan Impression: Acute on chronic systolic congestive heart failure COPD Pulmonary edema CHF status post AICD placement Non ST-elevation myocardial infarction Status post COVID Kgivayoq-fr-zihvyr malnutrition Dyspnea on exertion Events: Breathing comfortably on room air. No respiratory distress. Continue incentive spirometry On spironolactone/Digoxin Pain control Avoid oversedation Diurese as tolerated on Lasix 20 mg IV QD Monitor renal function. Monitor electrolytes. Supplement as necessary. Potassium supplementation Cardiology recs appreciated. Patient awaiting heart transplant Nutritional support with Ensure. Continue Eliquis for DVT prophylaxis. Wound care Labs and imaging reviewed. Rest of plan as noted below. Plan: Chest x-ray imaging report reviewed. Cardiomegaly. Pulmonary edema. Small right pleural effusion. On room air Diurese to euvolemia Continue spironolactone, Corlanor, digoxin Nuvigil. Continue Eliquis for AFib. Monitor ins and outs. Monitor renal function Monitor electrolytes. Supplement as necessary. Ensure for nutritional supplementation Wound care DVT prophylaxis-on Eliquis. Prognosis: Poor given multiple comorbidities. Rest of plan per hospitalist and other consultants. Thank you Dr. Skaggs for allowing me to participate in this patient's care. Further recommendations will depend on patient's clinical course. Please do not hesitate to contact me if you have any questions or concerns. This medical document was created using an electronic medical record system with [employer] dictation system. Although this document has been carefully reviewed, there may still be some phonetic and typographical errors. These areas are purely typographical due to imperfections of the software programs, and do not reflect any compromise in the patient's medical care. Dietary Evaluation Review Comments: 1) Continue to monitor pt PO intake to meed at least 75% of meals 2) Consider TESSIE BID for wound 3) Continue current plan of care Expected Outcomes/Goals: 1) Pt appetite to improve 2) F/U in 3-5 days Plan discussed with: Patient, Other (SETH Andrew) JEOVANNY DHILLON MD Sep 18, 2024 21:01
[2024-09-19] VITALS (7 sets, daily range): BP systolic 85–123; BP diastolic 48–68; PULSE 66–90; RESP 16–20; TEMP 98–98.3; O2SAT 95–98
--- NOTE | 2024-09-19 07:54 | DVHPN2 ---
Progress Note - Dictate Date Seen: Sep 18, 2024 Medical Necessity Reason Pt with a Central, PICC or Fol: No Subjective HFrEF ACUTE DILATED CM S/P AICD HTN NOW WITH MARKED ELEVATED BNP ACUTE HFrEF DCM EF <20% cachexia/ anorexia NORMAL CORONARIES EF <20% S/P MITRAL VALVE CLIP BILATERAL PLEURAL EFFUSION HX OF THORACENTESIS NOW WITH ACUTE DECOMPENSATION NO CLINICAL OR RADIOGRAPHIC EVIDENCE FOR PNEUMONIA INCREASE SYNTHROID TO 200 CORRECT HYPOKALEMIA PT ADMITTED TO [facility] EVALUATED FOR HEART TRANSPLANT CURRENTLY NOT A CANDIDATE BECAUSE OF CACHEXIA S/P G TUBE PLACEMENT FOR NUTRITIONAL SUPPORT ONCE PT HAS ADEQUATE IMPROVEMENT IN NUTRITIONAL STATUS AND STRENGTH PT CAN BE BECOME ELIBILE FOR HEART TRANSPLANT vital signs Vital Sign Date Time Temp Pulse Resp B/P (MAP) Pulse Ox O2 Delivery O2 Flow Rate FiO2 09/19/24 05:00 98.2 66 20 105/57 (73) 97 98.2 09/18/24 20:00 Room Air* 0 21 Total Intake and Output 09/18/24 09/18/24 09/19/24 15:00 23:00 07:00 Intake Total 200 ml 225 ml Balance 200 ml 225 ml medications Current Medications Medications Dose Ordered Sig/Tucker Route Start Time Stop Time Status Last Admin Dose Admin Levothyroxine Sodium 150 mcg QAM@0600 PO 09/04/24 14:15 UNV Nitroglycerin 0.4 mg Q5MINP PRN SL 09/15/24 23:30 Digoxin 0.125 mg DAILY PO 09/16/24 10:00 09/18/24 09:16 0.125 MG Ivabradine 5 mg BID PO 09/16/24 10:00 09/18/24 21:37 5 MG Enteral Nutritional Formula 240 ml QID PO 09/16/24 06:00 09/16/24 18:24 240 ML Apixaban 2.5 mg DAILY PO 09/16/24 10:00 09/18/24 09:16 2.5 MG Furosemide 20 mg DAILY IV 09/16/24 10:00 09/18/24 09:14 20 MG Potassium Chloride 20 meq DAILY PO 09/16/24 10:00 09/18/24 09:15 20 MEQ Spironolactone 25 mg DAILY PO 09/16/24 10:00 09/18/24 09:15 25 MG Levothyroxine Sodium 112 mcg QAM@0600 PO 09/16/24 06:00 09/19/24 05:13 112 MCG Ondansetron HCl 4 mg Q6HPRN PRN IV 09/15/24 23:30 Armodafinil 150 mg QAM@08 PO 09/16/24 08:00 09/18/24 09:31 150 MG Docusate Sodium 100 mg BID PO 09/16/24 10:00 09/18/24 21:37 100 MG Acetaminophen/ Hydrocodone Bitart 1 tab Q6HPRN PRN PO 09/16/24 10:30 09/18/24 03:36 1 TAB laboratory and microbiology Laboratory Tests 09/12/24 13:44 Test 09/12/24 13:44 Range/Units Serum Glucose 106 74-106 mg/dL Problem List HFrEF ACUTE DILATED CM S/P AICD HTN NOW WITH MARKED ELEVATED BNP ACUTE HFrEF DCM EF <20% cachexia/ anorexia NORMAL CORONARIES EF <20% S/P MITRAL VALVE CLIP BILATERAL PLEURAL EFFUSION HX OF THORACENTESIS NOW WITH ACUTE DECOMPENSATION NO CLINICAL OR RADIOGRAPHIC EVIDENCE FOR PNEUMONIA INCREASE SYNTHROID TO 200 CORRECT HYPOKALEMIA PT ADMITTED TO [facility] EVALUATED FOR HEART TRANSPLANT CURRENTLY NOT A CANDIDATE BECAUSE OF CACHEXIA S/P G TUBE PLACEMENT FOR NUTRITIONAL SUPPORT ONCE PT HAS ADEQUATE IMPROVEMENT IN NUTRITIONAL STATUS AND STRENGTH PT CAN BE BECOME ELIBILE FOR HEART TRANSPLANT Assessment/Plan TITRATE ON MEDS PT INCREASE NUTRITIONAL SUPPLEMENT WITH DIG AND CORLANOR HEART RATE CONTROLED START MEGACE DIC PANEL CONSIDER BONE MARROW BX ITP R/O START MEGACE INCREASE SYNTHROID TO 150 lise START PT ON PROVIGIL OR NUVIGIL DC ALL SEDATION PHYSICAL THERAPY ALL LABS UA BNP ECHO EF <10% LVH E CLIP NOTED LEFT PLEURAL EFFUSION Dietary Evaluation Review Comments: 1) Continue to monitor pt PO intake to meed at least 75% of meals 2) Consider TESSIE BID for wound 3) Continue current plan of care Expected Outcomes/Goals: 1) Pt appetite to improve 2) F/U in 3-5 days Plan discussed with: Patient, Daughter KALLIE GLASGOW MD Sep 19, 2024 07:54
--- NOTE | 2024-09-19 07:56 | DVHPN2 ---
Progress Note - Dictate Date Seen: Sep 19, 2024 Medical Necessity Reason Pt with a Central, PICC or Fol: No Subjective HFrEF ACUTE DILATED CM S/P AICD HTN NOW WITH MARKED ELEVATED BNP ACUTE HFrEF DCM EF <20% cachexia/ anorexia NORMAL CORONARIES EF <20% S/P MITRAL VALVE CLIP BILATERAL PLEURAL EFFUSION HX OF THORACENTESIS NOW WITH ACUTE DECOMPENSATION NO CLINICAL OR RADIOGRAPHIC EVIDENCE FOR PNEUMONIA INCREASE SYNTHROID TO 200 CORRECT HYPOKALEMIA PT ADMITTED TO [facility] FOR HEART TRANSPLANT CURRENTLY NOT A CANDIDATE BECAUSE OF CACHEXIA S/P G TUBE PLACEMENT FOR NUTRITIONAL SUPPORT ONCE PT HAS ADEQUATE IMPROVEMENT IN NUTRITIONAL STATUS AND STRENGTH PT CAN BE BECOME ELIBILE FOR HEART TRANSPLANT vital signs Vital Sign Date Time Temp Pulse Resp B/P (MAP) Pulse Ox O2 Delivery O2 Flow Rate FiO2 09/19/24 05:00 98.2 66 20 105/57 (73) 97 98.2 09/18/24 20:00 Room Air* 0 21 Total Intake and Output 09/18/24 09/18/24 09/19/24 15:00 23:00 07:00 Intake Total 200 ml 225 ml Balance 200 ml 225 ml medications Current Medications Medications Dose Ordered Sig/Tucker Route Start Time Stop Time Status Last Admin Dose Admin Levothyroxine Sodium 150 mcg QAM@0600 PO 09/04/24 14:15 UNV Nitroglycerin 0.4 mg Q5MINP PRN SL 09/15/24 23:30 Digoxin 0.125 mg DAILY PO 09/16/24 10:00 09/18/24 09:16 0.125 MG Ivabradine 5 mg BID PO 09/16/24 10:00 09/18/24 21:37 5 MG Enteral Nutritional Formula 240 ml QID PO 09/16/24 06:00 09/16/24 18:24 240 ML Apixaban 2.5 mg DAILY PO 09/16/24 10:00 09/18/24 09:16 2.5 MG Furosemide 20 mg DAILY IV 09/16/24 10:00 09/18/24 09:14 20 MG Potassium Chloride 20 meq DAILY PO 09/16/24 10:00 09/18/24 09:15 20 MEQ Spironolactone 25 mg DAILY PO 09/16/24 10:00 09/18/24 09:15 25 MG Levothyroxine Sodium 112 mcg QAM@0600 PO 09/16/24 06:00 09/19/24 05:13 112 MCG Ondansetron HCl 4 mg Q6HPRN PRN IV 09/15/24 23:30 Armodafinil 150 mg QAM@08 PO 09/16/24 08:00 09/18/24 09:31 150 MG Docusate Sodium 100 mg BID PO 09/16/24 10:00 09/18/24 21:37 100 MG Acetaminophen/ Hydrocodone Bitart 1 tab Q6HPRN PRN PO 09/16/24 10:30 09/18/24 03:36 1 TAB laboratory and microbiology Laboratory Tests 09/12/24 13:44 Test 09/12/24 13:44 Range/Units Serum Glucose 106 74-106 mg/dL Problem List HFrEF ACUTE DILATED CM S/P AICD HTN NOW WITH MARKED ELEVATED BNP ACUTE HFrEF DCM EF <20% cachexia/ anorexia NORMAL CORONARIES EF <20% S/P MITRAL VALVE CLIP BILATERAL PLEURAL EFFUSION HX OF THORACENTESIS NOW WITH ACUTE DECOMPENSATION NO CLINICAL OR RADIOGRAPHIC EVIDENCE FOR PNEUMONIA INCREASE SYNTHROID TO 200 CORRECT HYPOKALEMIA PT ADMITTED TO [facility] FOR HEART TRANSPLANT CURRENTLY NOT A CANDIDATE BECAUSE OF CACHEXIA S/P G TUBE PLACEMENT FOR NUTRITIONAL SUPPORT ONCE PT HAS ADEQUATE IMPROVEMENT IN NUTRITIONAL STATUS AND STRENGTH PT CAN BE BECOME ELIBILE FOR HEART TRANSPLANT Assessment/Plan TITRATE ON MEDS PT INCREASE NUTRITIONAL SUPPLEMENT WITH DIG AND CORLANOR HEART RATE CONTROLED START MEGACE DIC PANEL CONSIDER BONE MARROW BX ITP R/O START MEGACE INCREASE SYNTHROID TO 150 lise START PT ON PROVIGIL OR NUVIGIL DC ALL SEDATION PHYSICAL THERAPY ALL LABS UA BNP ECHO EF <10% LVH E CLIP NOTED LEFT PLEURAL EFFUSION LABS UA CXR BNP WILL TRANSFER TO SNF IF LABS AND HEMODYNAMIC STATUS ARE APPROPRIATE Dietary Evaluation Review Comments: 1) Continue to monitor pt PO intake to meed at least 75% of meals 2) Consider TESSIE BID for wound 3) Continue current plan of care Expected Outcomes/Goals: 1) Pt appetite to improve 2) F/U in 3-5 days Plan discussed with: Patient KALLIE GLASGOW MD Sep 19, 2024 07:56
--- NOTE | 2024-09-19 08:35 | DVH ---
CHEST RADIOGRAPH Indication: pleural effusion Technique: Single frontal view of the chest was obtained Comparison: XY CHEST PORTABLE on DOS: 08/31/24, XY CHEST PORTABLE on DOS: 08/02/24 FINDINGS: Lines and Tubes: There is a multi lead AICD device in the left chest wall. Lungs: There is atelectasis versus airspace disease in the right lower lung. There is no obvious pleu ral fusion. There is no evidence of pnemothorox. Cardiomediastinal contours: Moderate cardiomegaly. Bones: No acute osseous abnormality. IMPRESSION: 1. Atelactasis versus airspace disease in the right lower lung. 2. Moderate cardiomegaly. HS:Y
[2024-09-19 08:53] LABS: Basophils # (auto) 0.1 10 ^3/uL (0-0.2); Basophils % (auto) 2.5 % (0.0-2.0); Eosinophils # (auto) 0.1 10 ^3/uL (0-0.8); Hematocrit 41.7 % (36.0-46.0); Hemoglobin 13.4 g/dL (12.2-16.2); Lymphocytes # (auto) 0.5 10 ^3/uL (0.4-5.4); Mean Corpuscular Hemoglobin 30.6 pg (28.0-32.0); Mean Corpuscular Volume 95.6 fL (80.0-100.0); Monocytes # (auto) 0.5 10 ^3/uL (0-1.3); Monocytes % (auto) 10.5 % (0.0-12.0); Neutrophils # (auto) 3.3 10 ^3/uL (1.6-8.6); Platelet Count (auto) 220 10^3/uL (140-450); Red Blood Cells 4.36 10^6/uL (4.0-5.20); Red Cell Distribution Width 17.7 % (11.8-14.3); White Blood Cell 4.5 10^3/uL (4.4-10.8)
[2024-09-19 09:05] LABS: Alanine Aminotransferase 14 U/L (7-40); Albumin 3.6 g/dL (3.2-4.8); Alkaline Phosphatase 126 U/L (46-116); Anion Gap 8 (5-15); Aspartate Aminotransferase 31 U/L (13-40); Blood Urea Nitrogen 13 mg/dL (9-23); Calcium 9.5 mg/dL (8.7-10.4); Carbon Dioxide 23 mmol/L (20-31); Chloride 105 mmol/L (98-107); Glucose 81 mg/dL (74-106); Potassium 3.9 mmol/L (3.5-5.1); Sodium 136 mmol/L (136-145)
[2024-09-19 09:06] LABS: Bilirubin, Total 0.5 mg/dL (0.2-1.0); Total Protein 6.6 g/dL (5.7-8.2)
--- NOTE | 2024-09-19 11:25 | DVHPN2 ---
Subjective The patient seen and examined at bedside. Still no have no appetite. Very weak Reviewed: Care Plan, H&P, Labs, Medications, Previous Orders, Radiology Changes from previous H/P or p: No Changes General: Per HPI Cardiovascular: Edema Objective Vitals Vital Signs Date Time Temp Pulse Resp B/P (MAP) Pulse Ox O2 Delivery O2 Flow Rate FiO2 09/19/24 09:50 71 09/19/24 09:00 98.0 16 85/48 (60) 97 98.0 09/18/24 20:00 Room Air* 0 21 Intake/Output Intake and Output 09/19/24 07:00 Intake Total 425 ml Balance 425 ml Intake Oral 425 ml # Voids 7 General Appearance: Alert, No acute distress HEENT: Atraumatic, PERRLA, EOMI, Mucous membr. moist/pink Neck: Supple Lungs: Clear to auscultation, Normal air movement Cardiovascular: Regular rate, Normal S1, Normal S2, No murmurs, Gallops, Rubs Abdomen: Normal bowel sounds, Soft, No tenderness Extremities: Normal pulses Neuro: Cranial nerves 3-12 NL Psych/Mental Status: Mental status NL Medications Current Medications Medications Dose Ordered Sig/Tucker Route Start Time Stop Time Status Last Admin Dose Admin Levothyroxine Sodium 150 mcg QAM@0600 PO 09/04/24 14:15 UNV Nitroglycerin 0.4 mg Q5MINP PRN SL 09/15/24 23:30 Digoxin 0.125 mg DAILY PO 09/16/24 10:00 09/19/24 09:50 0.125 MG Ivabradine 5 mg BID PO 09/16/24 10:00 09/19/24 09:54 5 MG Enteral Nutritional Formula 240 ml QID PO 09/16/24 06:00 09/16/24 18:24 240 ML Apixaban 2.5 mg DAILY PO 09/16/24 10:00 09/19/24 09:50 2.5 MG Furosemide 20 mg DAILY IV 09/16/24 10:00 09/18/24 09:14 20 MG Potassium Chloride 20 meq DAILY PO 09/16/24 10:00 09/19/24 09:50 20 MEQ Spironolactone 25 mg DAILY PO 09/16/24 10:00 09/19/24 09:50 25 MG Levothyroxine Sodium 112 mcg QAM@0600 PO 09/16/24 06:00 09/19/24 05:13 112 MCG Ondansetron HCl 4 mg Q6HPRN PRN IV 09/15/24 23:30 Armodafinil 150 mg QAM@08 PO 09/16/24 08:00 09/19/24 09:50 150 MG Docusate Sodium 100 mg BID PO 09/16/24 10:00 09/19/24 09:49 100 MG Acetaminophen/ Hydrocodone Bitart 1 tab Q6HPRN PRN PO 09/16/24 10:30 09/18/24 03:36 1 TAB Laboratory Results Laboratory Tests 09/19/24 08:33 Chemistry Test 09/19/24 08:33 Albumin 3.6 g/dL (3.2-4.8) Calcium Level 9.5 mg/dL (8.7-10.4) Total Protein 6.6 g/dL (5.7-8.2) Cardiac Markers Test 09/19/24 08:33 B-Type Natriuretic Peptide 1461.09 pg/mL (0-100) LFT Test 09/19/24 08:33 Alanine Aminotransferase (ALT) 14 U/L (7-40) Alkaline Phosphatase 126 U/L (46-116) H Aspartate Amino Transferase (AST) 31 U/L (13-40) Total Bilirubin 0.5 mg/dL (0.2-1.0) Urinalysis Test 09/09/24 22:45 Urine Color Yellow (Yellow) Urine Clarity Clear (Clear) Urine pH 6.5 (5.0-9.0) Urine Specific [place] 1.023 (1.001-1.035) Urine Protein 1+ (Negative) H Urine Ketones Negative (Negative) Urine Blood Negative /uL (Negative) Urine Nitrite Negative (Negative) Urine Bilirubin Negative (Negative) Urine Urobilinogen 6 mg/dL (Negative) Urine Leukocyte Esterase Negative /uL (Negative) Urine RBC 1 /hpf (0 - 4) Urine WBC 4 /hpf (0 - 5) Urine Squamous Epithelial Cells Few /hpf (<5) Urine Bacteria None seen /hpf (None Seen) Urine Mucus Few (None Seen) Urine Glucose Normal mg/dL (Normal) Microbiology Microbiology Date/Time Source Procedure Growth Status 08/31/24 03:35 Nose MRSA Screen - Final Complete Labs and/or images reviewed: Labs reviewed by me Assessment/Plan Assessment/Plan * Acute on chronic systolic heart failure * Hypothyroidism * Status post AICD. * Non-STEMI likely type 2. * s/p covid 19 * mod/severe malnutrition Continuing current management. Continuing with IV Lasix and Aldactone and also digoxin Continuing with tube feeding and mirtazapine. Continuing with ensure to help with nutrition support We will add Megace to her regimen to stimulate her appetite The patient complains that her food is so bad that she cannot eat it. I advice her to ask her family to bring her favorite food in, hopefully she will eat. Encourage the patient to work with PT, to be out of bed and ambulate. Waiting for Dr. Philip to see the patient Plan discussed with: Patient Date of Service: Sep 19, 2024 Billing Provider: CARLI MONTERROSO MD Common Visit Codes: [id number] INP/OBS CARE(HIGH) CARLI MONTERROSO MD Sep 19, 2024 11:24
[2024-09-19] MEDS ORDERED: BISACODYL 10 MG RECT SUPP PR PRN (17:15)
[2024-09-19] MEDS: HYDROCORTISONE 100 MG/60 ML RECT ENEMA PR PRN (20:36)
--- NOTE | 2024-09-19 21:27 | DVHPN2 ---
Progress Note - Dictate Date Seen: Sep 19, 2024 Medical Necessity Reason Pt with a Central, PICC or Fol: No Subjective Patient seen and examined at bedside. On room air. No new complaints. vital signs Vital Sign Date Time Temp Pulse Resp B/P (MAP) Pulse Ox O2 Delivery O2 Flow Rate FiO2 09/19/24 17:00 98.3 70 16 102/63 (76) 95 98.3 09/19/24 08:00 Room Air* 0 21 Total Intake and Output 09/18/24 09/18/24 09/19/24 15:00 23:00 07:00 Intake Total 200 ml 225 ml Balance 200 ml 225 ml medications Current Medications Medications Dose Ordered Sig/Tucker Route Start Time Stop Time Status Last Admin Dose Admin Levothyroxine Sodium 150 mcg QAM@0600 PO 09/04/24 14:15 UNV Nitroglycerin 0.4 mg Q5MINP PRN SL 09/15/24 23:30 Digoxin 0.125 mg DAILY PO 09/16/24 10:00 09/19/24 09:50 0.125 MG Ivabradine 5 mg BID PO 09/16/24 10:00 09/19/24 09:54 5 MG Enteral Nutritional Formula 240 ml QID PO 09/16/24 06:00 09/16/24 18:24 240 ML Apixaban 2.5 mg DAILY PO 09/16/24 10:00 09/19/24 09:50 2.5 MG Furosemide 20 mg DAILY IV 09/16/24 10:00 09/19/24 10:00 20 MG Potassium Chloride 20 meq DAILY PO 09/16/24 10:00 09/19/24 09:50 20 MEQ Spironolactone 25 mg DAILY PO 09/16/24 10:00 09/19/24 09:50 25 MG Levothyroxine Sodium 112 mcg QAM@0600 PO 09/16/24 06:00 09/19/24 05:13 112 MCG Ondansetron HCl 4 mg Q6HPRN PRN IV 09/15/24 23:30 Armodafinil 150 mg QAM@08 PO 09/16/24 08:00 09/19/24 09:50 150 MG Docusate Sodium 100 mg BID PO 09/16/24 10:00 09/19/24 09:49 100 MG Acetaminophen/ Hydrocodone Bitart 1 tab Q6HPRN PRN PO 09/16/24 10:30 09/19/24 15:13 1 TAB Bisacodyl 10 mg BID PRN SC 09/19/24 17:15 09/20/24 10:30 Hydrocortisone 100 mg BID PRN SC 09/19/24 19:15 09/19/24 20:36 100 MG objective Gen.: Patient lying in bed in no apparent distress. Breathing on room air. Head: Normocephalic, atraumatic Eyes: EOMI/PERRLA. Ears: Normal hearing. Normal anatomy. Neck/trachea: Trachea midline, supple. Nose: Normal external anatomy. Mouth: Moist mucous membranes. Chest: Decreased air entry bilaterally. No wheezing or rhonchi. Cardio vascular: Pacemaker in place. Positive S1, positive S2. Regular rate and rhythm. Abdomen: Positive bowel sounds in all 4 quadrants. Soft, non-tender, non- distended. : Deferred. Rectal: Deferred Skin: Warm, dry. Extremities: 2+ radial pulses bilaterally. No lower extremity edema. Neuro: Awake, alert, oriented x3. No gross motor or sensory deficits. Cranial nerves II through XII intact. Gait not assessed. laboratory and microbiology Laboratory Tests 09/19/24 08:33 Test 09/19/24 08:33 Range/Units Serum Glucose 81 74-106 mg/dL Assessment/Plan Impression: Acute on chronic systolic congestive heart failure COPD Pulmonary edema CHF status post AICD placement Non ST-elevation myocardial infarction Status post COVID [id number] malnutrition Dyspnea on exertion Events: Breathing comfortably on room air. No respiratory distress. Continue incentive spirometry On spironolactone/Digoxin Pain control Avoid oversedation Diurese as tolerated on Lasix 20 mg IV QD Monitor renal function. Monitor electrolytes. Supplement as necessary. Potassium supplementation Cardiology recs appreciated. Patient awaiting heart transplant Nutritional support with Ensure. Continue Eliquis for DVT prophylaxis. Wound care Labs and imaging reviewed. Rest of plan as noted below. Plan: Chest x-ray imaging report reviewed. Cardiomegaly. Pulmonary edema. Small right pleural effusion. On room air Diurese to euvolemia Continue spironolactone, Corlanor, digoxin Nuvigil. Continue Eliquis for AFib. Monitor ins and outs. Monitor renal function Monitor electrolytes. Supplement as necessary. Ensure for nutritional supplementation Wound care DVT prophylaxis-on Eliquis. Prognosis: Poor given multiple comorbidities. Rest of plan per hospitalist and other consultants. Thank you Dr. Skaggs for allowing me to participate in this patient's care. Further recommendations will depend on patient's clinical course. Please do not hesitate to contact me if you have any questions or concerns. This medical document was created using an electronic medical record system with [employer] dictation system. Although this document has been carefully reviewed, there may still be some phonetic and typographical errors. These areas are purely typographical due to imperfections of the software programs, and do not reflect any compromise in the patient's medical care. Dietary Evaluation Review Comments: 1) Continue to monitor pt PO intake to meed at least 75% of meals 2) Consider TESSIE BID for wound 3) Continue current plan of care Expected Outcomes/Goals: 1) Pt appetite to improve 2) F/U in 3-5 days Plan discussed with: Patient, Other (SETH Cordova) JEOVANNY DHILLON MD Sep 19, 2024 21:27
[2024-09-20] VITALS (8 sets, daily range): BP systolic 107–127; BP diastolic 55–67; PULSE 64–70; RESP 16–19; TEMP 98–98.3; O2SAT 96–99
--- NOTE | 2024-09-20 09:44 | DVHPN2 ---
Progress Note - Dictate Date Seen: Sep 20, 2024 Medical Necessity Reason Pt with a Central, PICC or Fol: No Subjective HFrEF ACUTE DILATED CM S/P AICD HTN NOW WITH MARKED ELEVATED BNP ACUTE HFrEF DCM EF <20% cachexia/ anorexia NORMAL CORONARIES EF <20% S/P MITRAL VALVE CLIP BILATERAL PLEURAL EFFUSION HX OF THORACENTESIS NOW WITH ACUTE DECOMPENSATION NO CLINICAL OR RADIOGRAPHIC EVIDENCE FOR PNEUMONIA INCREASE SYNTHROID TO 200 CORRECT HYPOKALEMIA PT ADMITTED TO [facility] FOR HEART TRANSPLANT CURRENTLY NOT A CANDIDATE BECAUSE OF CACHEXIA S/P G TUBE PLACEMENT FOR NUTRITIONAL SUPPORT ONCE PT HAS ADEQUATE IMPROVEMENT IN NUTRITIONAL STATUS AND STRENGTH PT CAN BE BECOME ELIBILE FOR HEART TRANSPLANT vital signs Vital Sign Date Time Temp Pulse Resp B/P (MAP) Pulse Ox O2 Delivery O2 Flow Rate FiO2 09/20/24 09:30 98.1 69 17 107/55 (72) 97 98.1 09/19/24 20:00 Room Air* 0 21 Total Intake and Output 09/19/24 09/19/24 09/20/24 15:00 23:00 07:00 Intake Total 375 ml 200 ml Output Total 300 ml Balance 375 ml -100 ml medications Current Medications Medications Dose Ordered Sig/Tucker Route Start Time Stop Time Status Last Admin Dose Admin Levothyroxine Sodium 150 mcg QAM@0600 PO 09/04/24 14:15 UNV Nitroglycerin 0.4 mg Q5MINP PRN SL 09/15/24 23:30 Digoxin 0.125 mg DAILY PO 09/16/24 10:00 09/19/24 09:50 0.125 MG Ivabradine 5 mg BID PO 09/16/24 10:00 09/19/24 21:39 5 MG Enteral Nutritional Formula 240 ml QID PO 09/16/24 06:00 09/16/24 18:24 240 ML Apixaban 2.5 mg DAILY PO 09/16/24 10:00 09/19/24 09:50 2.5 MG Furosemide 20 mg DAILY IV 09/16/24 10:00 09/19/24 10:00 20 MG Potassium Chloride 20 meq DAILY PO 09/16/24 10:00 09/19/24 09:50 20 MEQ Spironolactone 25 mg DAILY PO 09/16/24 10:00 09/19/24 09:50 25 MG Levothyroxine Sodium 112 mcg QAM@0600 PO 09/16/24 06:00 09/20/24 04:51 112 MCG Ondansetron HCl 4 mg Q6HPRN PRN IV 09/15/24 23:30 Armodafinil 150 mg QAM@08 PO 09/16/24 08:00 09/19/24 09:50 150 MG Docusate Sodium 100 mg BID PO 09/16/24 10:00 09/19/24 09:49 100 MG Acetaminophen/ Hydrocodone Bitart 1 tab Q6HPRN PRN PO 09/16/24 10:30 09/19/24 15:13 1 TAB Bisacodyl 10 mg BID PRN RI 09/19/24 17:15 09/20/24 10:30 laboratory and microbiology Laboratory Tests 09/19/24 08:33 Test 09/19/24 08:33 Range/Units Serum Glucose 81 74-106 mg/dL Problem List HFrEF ACUTE DILATED CM S/P AICD HTN NOW WITH MARKED ELEVATED BNP ACUTE HFrEF DCM EF <20% cachexia/ anorexia NORMAL CORONARIES EF <20% S/P MITRAL VALVE CLIP BILATERAL PLEURAL EFFUSION HX OF THORACENTESIS NOW WITH ACUTE DECOMPENSATION NO CLINICAL OR RADIOGRAPHIC EVIDENCE FOR PNEUMONIA INCREASE SYNTHROID TO 200 CORRECT HYPOKALEMIA PT ADMITTED TO [facility] EVALUATED FOR HEART TRANSPLANT CURRENTLY NOT A CANDIDATE BECAUSE OF CACHEXIA S/P G TUBE PLACEMENT FOR NUTRITIONAL SUPPORT ONCE PT HAS ADEQUATE IMPROVEMENT IN NUTRITIONAL STATUS AND STRENGTH PT CAN BE BECOME ELIBILE FOR HEART TRANSPLANT Assessment/Plan TITRATE ON MEDS PT INCREASE NUTRITIONAL SUPPLEMENT WITH DIG AND CORLANOR HEART RATE CONTROLED START MEGACE DIC PANEL CONSIDER BONE MARROW BX ITP R/O START MEGACE INCREASE SYNTHROID TO 150 lise START PT ON PROVIGIL OR NUVIGIL DC ALL SEDATION PHYSICAL THERAPY ALL LABS UA BNP ECHO EF <10% LVH E CLIP NOTED LEFT PLEURAL EFFUSION LABS UA CXR BNP WILL TRANSFER TO SNF IF LABS AND HEMODYNAMIC STATUS ARE APPROPRIATE PT ALERT HAD 3 BOWEL MOVEMENTS BNP IMPROVED K CORRECTED Dietary Evaluation Review Comments: 1) Continue to monitor pt PO intake to meed at least 75% of meals 2) Consider TESSIE BID for wound 3) Continue current plan of care Expected Outcomes/Goals: 1) Pt appetite to improve 2) F/U in 3-5 days Plan discussed with: Daughter KALLIE GLASGOW MD Sep 20, 2024 09:44
--- NOTE | 2024-09-20 11:42 | DVHPN2 ---
Subjective The patient seen and examined at bedside. Still no have no appetite. Very weak Reviewed: Care Plan, H&P, Labs, Medications, Previous Orders, Radiology Changes from previous H/P or p: No Changes General: Per HPI Cardiovascular: Edema Objective Vitals Vital Signs Date Time Temp Pulse Resp B/P (MAP) Pulse Ox O2 Delivery O2 Flow Rate FiO2 09/20/24 10:13 107/55 09/20/24 10:12 69 09/20/24 09:30 98.1 17 97 98.1 09/20/24 08:00 Room Air* 0 21 Intake/Output Intake and Output 09/20/24 07:00 Intake Total 575 ml Output Total 300 ml Balance 275 ml Intake Oral 575 ml Output Urine Total 300 ml # Voids 2 # Bowel Movements 3 General Appearance: Alert, No acute distress HEENT: Atraumatic, PERRLA, EOMI, Mucous membr. moist/pink Neck: Supple Lungs: Clear to auscultation, Normal air movement Cardiovascular: Regular rate, Normal S1, Normal S2, No murmurs, Gallops, Rubs Abdomen: Normal bowel sounds, Soft, No tenderness Extremities: Normal pulses Neuro: Cranial nerves 3-12 NL Psych/Mental Status: Mental status NL Medications Current Medications Medications Dose Ordered Sig/Tucker Route Start Time Stop Time Status Last Admin Dose Admin Levothyroxine Sodium 150 mcg QAM@0600 PO 09/04/24 14:15 UNV Nitroglycerin 0.4 mg Q5MINP PRN SL 09/15/24 23:30 Digoxin 0.125 mg DAILY PO 09/16/24 10:00 09/20/24 10:12 0.125 MG Ivabradine 5 mg BID PO 09/16/24 10:00 09/20/24 10:12 5 MG Enteral Nutritional Formula 240 ml QID PO 09/16/24 06:00 09/16/24 18:24 240 ML Apixaban 2.5 mg DAILY PO 09/16/24 10:00 09/20/24 10:13 2.5 MG Furosemide 20 mg DAILY IV 09/16/24 10:00 09/20/24 10:13 20 MG Potassium Chloride 20 meq DAILY PO 09/16/24 10:00 09/20/24 10:13 20 MEQ Spironolactone 25 mg DAILY PO 09/16/24 10:00 09/20/24 10:13 25 MG Levothyroxine Sodium 112 mcg QAM@0600 PO 09/16/24 06:00 09/20/24 04:51 112 MCG Ondansetron HCl 4 mg Q6HPRN PRN IV 09/15/24 23:30 Armodafinil 150 mg QAM@08 PO 09/16/24 08:00 09/20/24 10:12 150 MG Docusate Sodium 100 mg BID PO 09/16/24 10:00 09/20/24 10:12 100 MG Acetaminophen/ Hydrocodone Bitart 1 tab Q6HPRN PRN PO 09/16/24 10:30 09/19/24 15:13 1 TAB Laboratory Results Laboratory Tests 09/19/24 08:33 Urinalysis Test 09/09/24 22:45 Urine Color Yellow (Yellow) Urine Clarity Clear (Clear) Urine pH 6.5 (5.0-9.0) Urine Specific [place] 1.023 (1.001-1.035) Urine Protein 1+ (Negative) H Urine Ketones Negative (Negative) Urine Blood Negative /uL (Negative) Urine Nitrite Negative (Negative) Urine Bilirubin Negative (Negative) Urine Urobilinogen 6 mg/dL (Negative) Urine Leukocyte Esterase Negative /uL (Negative) Urine RBC 1 /hpf (0 - 4) Urine WBC 4 /hpf (0 - 5) Urine Squamous Epithelial Cells Few /hpf (<5) Urine Bacteria None seen /hpf (None Seen) Urine Mucus Few (None Seen) Urine Glucose Normal mg/dL (Normal) Microbiology Microbiology Date/Time Source Procedure Growth Status 08/31/24 03:35 Nose MRSA Screen - Final Complete Labs and/or images reviewed: Labs reviewed by me Assessment/Plan Assessment/Plan * Acute on chronic systolic heart failure * Hypothyroidism * Status post AICD. * Non-STEMI likely type 2. * s/p covid 19 * mod/severe malnutrition Continuing current management. Continuing with IV Lasix and Aldactone and also digoxin Continuing with tube feeding and mirtazapine. Continuing with ensure to help with nutrition support We will add Megace to her regimen to stimulate her appetite Encourage patient to bring food from home if patient prefer. Encourage the patient to work with PT, to be out of bed and ambulate. Recommend SNF for rehab Plan discussed with: Patient Date of Service: Sep 20, 2024 Billing Provider: CARLI MONTERROSO MD Common Visit Codes: [id number] INP/OBS CARE(HIGH) CARLI MONTERROSO MD Sep 20, 2024 11:42
[2024-09-20] MEDS: MAGNESIUM CITRATE SOLUTION 300 ML BTL PO ONE (11:45)
--- NOTE | 2024-09-20 12:26 | DVHSR ---
APPROVED REPORT EXAM: Two-dimensional and M-mode echocardiogram with Doppler and color Doppler. Blood Pressure: 123/71 mmHg INDICATION S/P MV Repair Surgery/Intervention Valve Replacement: Type: repair RISK FACTORS Height: 5' 4", Weight: 126 DIMENSIONS LVDd7.3 (3.8-5.7cm)LA (2D)4.5 (1.9-4.0cm)Aortic Root3.6 (2.0-3.7cm) LVDs7.0 (2.5-4.0cm)LA (MM) (1.9-4.0cm)Aortic Cusp Exc1.5 (1.5-2.0cm) EF (%) 10.0 (55-70%)Rt. Atrium4.0 (1.9-4.0cm)Asc. Aorta cm IVSd0.9 (0.7-1.1cm)RV (D) (1.8-2.4cm) PWd0.9 (0.7-1.1cm) Mitral Valve MitralMitral Stenosis E wave2.10m/sMV Mean GR.mmHg E/A ratio0.02D MVAcm2 Aortic Valve Aortic ValveAortic Stenosis V10.40m/Joselyn Mean GR.5mmHg V21.40m/Joselyn Peak GR.9mmHg LVOT Diameter2.1 (1.8-2.4cm)Doppler AVA0.99cm2 AI P 1/2 Xint941.97ms Tricuspid Valve TR Velocity2.50m/s [id number] Conclusion MITRAL VALVE CLIP EF <20% LVE LAE SMALL LEFT PLEURAL EFFUSION SEEN
--- NOTE | 2024-09-20 21:26 | DVHPN2 ---
Progress Note - Dictate Date Seen: Sep 20, 2024 Medical Necessity Reason Pt with a Central, PICC or Fol: No Subjective Patient seen and examined at bedside. On room air. No new complaints. vital signs Vital Sign Date Time Temp Pulse Resp B/P (MAP) Pulse Ox O2 Delivery O2 Flow Rate FiO2 09/20/24 16:29 98.3 66 17 120/62 (81) 98 98.3 09/20/24 08:00 Room Air* 0 21 Total Intake and Output 09/19/24 09/19/24 09/20/24 15:00 23:00 07:00 Intake Total 375 ml 200 ml Output Total 300 ml Balance 375 ml -100 ml medications Current Medications Medications Dose Ordered Sig/Tucker Route Start Time Stop Time Status Last Admin Dose Admin Levothyroxine Sodium 150 mcg QAM@0600 PO 09/04/24 14:15 UNV Nitroglycerin 0.4 mg Q5MINP PRN SL 09/15/24 23:30 Digoxin 0.125 mg DAILY PO 09/16/24 10:00 09/20/24 10:12 0.125 MG Ivabradine 5 mg BID PO 09/16/24 10:00 09/20/24 10:12 5 MG Enteral Nutritional Formula 240 ml QID PO 09/16/24 06:00 09/16/24 18:24 240 ML Apixaban 2.5 mg DAILY PO 09/16/24 10:00 09/20/24 10:13 2.5 MG Furosemide 20 mg DAILY IV 09/16/24 10:00 09/20/24 10:13 20 MG Potassium Chloride 20 meq DAILY PO 09/16/24 10:00 09/20/24 10:13 20 MEQ Spironolactone 25 mg DAILY PO 09/16/24 10:00 09/20/24 10:13 25 MG Levothyroxine Sodium 112 mcg QAM@0600 PO 09/16/24 06:00 09/20/24 04:51 112 MCG Ondansetron HCl 4 mg Q6HPRN PRN IV 09/15/24 23:30 Armodafinil 150 mg QAM@08 PO 09/16/24 08:00 09/20/24 10:12 150 MG Docusate Sodium 100 mg BID PO 09/16/24 10:00 09/20/24 10:12 100 MG Acetaminophen/ Hydrocodone Bitart 1 tab Q6HPRN PRN PO 09/16/24 10:30 09/19/24 15:13 1 TAB Enteral Nutritional Formula 1,000 ml DAILY PEG 09/21/24 10:00 objective Gen.: Patient lying in bed in no apparent distress. Breathing on room air. Head: Normocephalic, atraumatic Eyes: EOMI/PERRLA. Ears: Normal hearing. Normal anatomy. Neck/trachea: Trachea midline, supple. Nose: Normal external anatomy. Mouth: Moist mucous membranes. Chest: Decreased air entry bilaterally. No wheezing or rhonchi. Cardio vascular: Pacemaker in place. Positive S1, positive S2. Regular rate and rhythm. Abdomen: Positive bowel sounds in all 4 quadrants. Soft, non-tender, non- distended. : Deferred. Rectal: Deferred Skin: Warm, dry. Extremities: 2+ radial pulses bilaterally. No lower extremity edema. Neuro: Awake, alert, oriented x3. No gross motor or sensory deficits. Cranial nerves II through XII intact. Gait not assessed. laboratory and microbiology Laboratory Tests 09/19/24 08:33 Test 09/19/24 08:33 Range/Units Serum Glucose 81 74-106 mg/dL Assessment/Plan Impression: Acute on chronic systolic congestive heart failure COPD Pulmonary edema CHF status post AICD placement Non ST-elevation myocardial infarction Status post COVID [id number] malnutrition Dyspnea on exertion Events: Breathing comfortably on room air. No respiratory distress. Continue incentive spirometry On spironolactone/Digoxin Diurese as tolerated on Lasix 20 mg IV QD Monitor renal function. Monitor electrolytes. Supplement as necessary. Cardiology recs appreciated. Patient awaiting heart transplant Nutritional support with Ensure via PEG. Continue Eliquis for DVT prophylaxis. Wound care Labs and imaging reviewed. Rest of plan as noted below. Plan: Chest x-ray imaging report reviewed. Cardiomegaly. Pulmonary edema. Small right pleural effusion. On room air Diurese to euvolemia Continue spironolactone, Corlanor, digoxin Nuvigil. Continue Eliquis for AFib. Monitor ins and outs. Monitor renal function Monitor electrolytes. Supplement as necessary. Ensure for nutritional supplementation Wound care DVT prophylaxis-on Eliquis. Prognosis: Poor given multiple comorbidities. Rest of plan per hospitalist and other consultants. Thank you Dr. Skaggs for allowing me to participate in this patient's care. Further recommendations will depend on patient's clinical course. Please do not hesitate to contact me if you have any questions or concerns. This medical document was created using an electronic medical record system with [employer] dictation system. Although this document has been carefully reviewed, there may still be some phonetic and typographical errors. These areas are purely typographical due to imperfections of the software programs, and do not reflect any compromise in the patient's medical care. Dietary Evaluation Review Comments: 1) Continue to monitor pt PO intake to meed at least 75% of meals 2) Consider TESSIE BID for wound 3) Continue current plan of care Expected Outcomes/Goals: 1) Pt appetite to improve 2) F/U in 3-5 days Plan discussed with: Patient, Other (SETH Cordova) JEOVANNY DHILLON MD Sep 20, 2024 21:26
[2024-09-21] VITALS (7 sets, daily range): BP systolic 113–139; BP diastolic 52–68; PULSE 66–76; RESP 15–24; TEMP 97.8–98.6; O2SAT 8–99
--- NOTE | 2024-09-21 08:54 | DVHPN2 ---
Progress Note - Dictate Date Seen: Sep 21, 2024 Medical Necessity Reason Pt with a Central, PICC or Fol: No Subjective HFrEF ACUTE DILATED CM S/P AICD HTN NOW WITH MARKED ELEVATED BNP ACUTE HFrEF DCM EF <20% cachexia/ anorexia NORMAL CORONARIES EF <20% S/P MITRAL VALVE CLIP BILATERAL PLEURAL EFFUSION HX OF THORACENTESIS NOW WITH ACUTE DECOMPENSATION NO CLINICAL OR RADIOGRAPHIC EVIDENCE FOR PNEUMONIA INCREASE SYNTHROID TO 200 CORRECT HYPOKALEMIA PT ADMITTED TO [facility] EVALUATED FOR HEART TRANSPLANT CURRENTLY NOT A CANDIDATE BECAUSE OF CACHEXIA S/P G TUBE PLACEMENT FOR NUTRITIONAL SUPPORT ONCE PT HAS ADEQUATE IMPROVEMENT IN NUTRITIONAL STATUS AND STRENGTH PT CAN BE BECOME ELIBILE FOR HEART TRANSPLANT vital signs Vital Sign Date Time Temp Pulse Resp B/P (MAP) Pulse Ox O2 Delivery O2 Flow Rate FiO2 09/21/24 05:00 98.5 69 18 113/65 (81) 98 98.5 09/20/24 20:00 Room Air* 0 21 Total Intake and Output 09/20/24 09/20/24 09/21/24 15:00 23:00 07:00 Intake Total 320 ml 250 ml Output Total 150 ml Balance 320 ml 100 ml medications Current Medications Medications Dose Ordered Sig/Tucker Route Start Time Stop Time Status Last Admin Dose Admin Levothyroxine Sodium 150 mcg QAM@0600 PO 09/04/24 14:15 UNV Nitroglycerin 0.4 mg Q5MINP PRN SL 09/15/24 23:30 Digoxin 0.125 mg DAILY PO 09/16/24 10:00 09/20/24 10:12 0.125 MG Ivabradine 5 mg BID PO 09/16/24 10:00 09/20/24 22:15 5 MG Enteral Nutritional Formula 240 ml QID PO 09/16/24 06:00 09/16/24 18:24 240 ML Apixaban 2.5 mg DAILY PO 09/16/24 10:00 09/20/24 10:13 2.5 MG Furosemide 20 mg DAILY IV 09/16/24 10:00 09/20/24 10:13 20 MG Potassium Chloride 20 meq DAILY PO 09/16/24 10:00 09/20/24 10:13 20 MEQ Spironolactone 25 mg DAILY PO 09/16/24 10:00 09/20/24 10:13 25 MG Levothyroxine Sodium 112 mcg QAM@0600 PO 09/16/24 06:00 09/21/24 05:40 112 MCG Ondansetron HCl 4 mg Q6HPRN PRN IV 09/15/24 23:30 Armodafinil 150 mg QAM@08 PO 09/16/24 08:00 09/20/24 10:12 150 MG Docusate Sodium 100 mg BID PO 09/16/24 10:00 09/20/24 22:15 100 MG Acetaminophen/ Hydrocodone Bitart 1 tab Q6HPRN PRN PO 09/16/24 10:30 09/19/24 15:13 1 TAB Enteral Nutritional Formula 1,000 ml DAILY PEG 09/21/24 10:00 laboratory and microbiology Laboratory Tests 09/19/24 08:33 Test 09/19/24 08:33 Range/Units Serum Glucose 81 74-106 mg/dL Problem List HFrEF ACUTE DILATED CM S/P AICD HTN NOW WITH MARKED ELEVATED BNP ACUTE HFrEF DCM EF <20% cachexia/ anorexia NORMAL CORONARIES EF <20% S/P MITRAL VALVE CLIP BILATERAL PLEURAL EFFUSION HX OF THORACENTESIS NOW WITH ACUTE DECOMPENSATION NO CLINICAL OR RADIOGRAPHIC EVIDENCE FOR PNEUMONIA INCREASE SYNTHROID TO 200 CORRECT HYPOKALEMIA PT ADMITTED TO [facility] EV[facility] FOR HEART TRANSPLANT CURRENTLY NOT A CANDIDATE BECAUSE OF CACHEXIA S/P G TUBE PLACEMENT FOR NUTRITIONAL SUPPORT ONCE PT HAS ADEQUATE IMPROVEMENT IN NUTRITIONAL STATUS AND STRENGTH PT CAN BE BECOME ELIBILE FOR HEART TRANSPLANT Assessment/Plan TITRATE ON MEDS PT INCREASE NUTRITIONAL SUPPLEMENT WITH DIG AND CORLANOR HEART RATE CONTROLED START MEGACE DIC PANEL CONSIDER BONE MARROW BX ITP R/O START MEGACE INCREASE SYNTHROID TO 150 lise START PT ON PROVIGIL OR NUVIGIL DC ALL SEDATION PHYSICAL THERAPY ALL LABS UA BNP ECHO EF <10% LVH E CLIP NOTED LEFT PLEURAL EFFUSION LABS UA CXR BNP WILL TRANSFER TO SNF IF LABS AND HEMODYNAMIC STATUS ARE APPROPRIATE PT ALERT HAD 3 BOWEL MOVEMENTS BNP IMPROVED K CORRECTED PT IMPROVING NEEDS PROLONG REHAB LABS MAY TRANSFER TO REHAB FACILITY Dietary Evaluation Review Comments: 1) Continue to monitor pt PO intake to meed at least 75% of meals 2) Consider TESSIE BID for wound 3) Continue current plan of care Expected Outcomes/Goals: 1) Pt appetite to improve 2) F/U in 3-5 days Plan discussed with: Patient, Daughter KALLIE GLASGOW MD Sep 21, 2024 08:54
[2024-09-21] MEDS ORDERED: Jevity 1.2 Cal/Fiber 1 Liter PEG SCH (10:00)
[2024-09-21 10:13] LABS: Basophils # (auto) 0.1 10 ^3/uL (0-0.2); Basophils % (auto) 1.8 % (0.0-2.0); Eosinophils # (auto) 0 10 ^3/uL (0-0.8); Eosinophils % (auto) 1.2 % (0.0-7.0); Hematocrit 40.6 % (36.0-46.0); Hemoglobin 13.2 g/dL (12.2-16.2); Lymphocytes # (auto) 0.6 10 ^3/uL (0.4-5.4); Lymphocytes % (auto) 17.3 % (10.0-50.0); Mean Corpuscular Hemoglobin 30.8 pg (28.0-32.0); Mean Corpuscular Hgb Conc. 32.4 g/dL (32.0-36.0); Mean Corpuscular Volume 95.1 fL (80.0-100.0); Monocytes # (auto) 0.4 10 ^3/uL (0-1.3); Monocytes % (auto) 12.9 % (0.0-12.0); Neutrophils # (auto) 2.1 10 ^3/uL (1.6-8.6); Neutrophils % (auto) 66.8 % (37.0-80.0); Nucleated Red Blood Cells % 0.1 %; Platelet Count (auto) 211 10^3/uL (140-450); Red Blood Cells 4.27 10^6/uL (4.0-5.20); Red Cell Distribution Width 17.6 % (11.8-14.3); White Blood Cell 3.2 10^3/uL (4.4-10.8)
[2024-09-21 10:33] LABS: Albumin 3.4 g/dL (3.2-4.8); Alkaline Phosphatase 115 U/L (46-116); Anion Gap 8 (5-15); Aspartate Aminotransferase 20 U/L (13-40); BUN/Creatinine Ratio 27.8 (10.0-20.0); Bilirubin, Total 0.5 mg/dL (0.2-1.0); Blood Urea Nitrogen 15 mg/dL (9-23); Calcium 9.1 mg/dL (8.7-10.4); Carbon Dioxide 24 mmol/L (20-31); Chloride 103 mmol/L (98-107); Glucose 122 mg/dL (74-106); Potassium 3.7 mmol/L (3.5-5.1); Sodium 135 mmol/L (136-145); Total Protein 6.3 g/dL (5.7-8.2)
[2024-09-21 10:35] LABS: Alanine Aminotransferase 9 U/L (7-40)
--- NOTE | 2024-09-21 11:23 | DVHPN2 ---
Subjective The patient seen and examined at bedside. Still no have no appetite. Very weak Reviewed: Care Plan, H&P, Labs, Medications, Previous Orders, Radiology Changes from previous H/P or p: No Changes General: Per HPI Cardiovascular: Edema Objective Vitals Vital Signs Date Time Temp Pulse Resp B/P (MAP) Pulse Ox O2 Delivery O2 Flow Rate FiO2 09/21/24 05:00 98.5 69 18 113/65 (81) 98 98.5 09/20/24 20:00 Room Air* 0 21 Intake/Output Intake and Output 09/21/24 07:00 Intake Total 570 ml Output Total 150 ml Balance 420 ml Intake Oral 570 ml Output Urine Total 150 ml # Voids 2 General Appearance: Alert, No acute distress HEENT: Atraumatic, PERRLA, EOMI, Mucous membr. moist/pink Neck: Supple Lungs: Clear to auscultation, Normal air movement Cardiovascular: Regular rate, Normal S1, Normal S2, No murmurs, Gallops, Rubs Abdomen: Normal bowel sounds, Soft, No tenderness Extremities: Normal pulses Neuro: Cranial nerves 3-12 NL Psych/Mental Status: Mental status NL Medications Current Medications Medications Dose Ordered Sig/Tucker Route Start Time Stop Time Status Last Admin Dose Admin Levothyroxine Sodium 150 mcg QAM@0600 PO 09/04/24 14:15 UNV Nitroglycerin 0.4 mg Q5MINP PRN SL 09/15/24 23:30 Digoxin 0.125 mg DAILY PO 09/16/24 10:00 09/20/24 10:12 0.125 MG Ivabradine 5 mg BID PO 09/16/24 10:00 09/20/24 22:15 5 MG Enteral Nutritional Formula 240 ml QID PO 09/16/24 06:00 09/16/24 18:24 240 ML Apixaban 2.5 mg DAILY PO 09/16/24 10:00 09/20/24 10:13 2.5 MG Furosemide 20 mg DAILY IV 09/16/24 10:00 09/20/24 10:13 20 MG Potassium Chloride 20 meq DAILY PO 09/16/24 10:00 09/20/24 10:13 20 MEQ Spironolactone 25 mg DAILY PO 09/16/24 10:00 09/20/24 10:13 25 MG Levothyroxine Sodium 112 mcg QAM@0600 PO 09/16/24 06:00 09/21/24 05:40 112 MCG Ondansetron HCl 4 mg Q6HPRN PRN IV 09/15/24 23:30 Armodafinil 150 mg QAM@08 PO 09/16/24 08:00 09/20/24 10:12 150 MG Docusate Sodium 100 mg BID PO 09/16/24 10:00 09/20/24 22:15 100 MG Acetaminophen/ Hydrocodone Bitart 1 tab Q6HPRN PRN PO 09/16/24 10:30 09/19/24 15:13 1 TAB Enteral Nutritional Formula 1,000 ml DAILY PEG 09/21/24 10:00 Laboratory Results Laboratory Tests 09/21/24 09:51 Chemistry Test 09/21/24 09:51 Albumin 3.4 g/dL (3.2-4.8) Calcium Level 9.1 mg/dL (8.7-10.4) Total Protein 6.3 g/dL (5.7-8.2) LFT Test 09/21/24 09:51 Alanine Aminotransferase (ALT) 9 U/L (7-40) Alkaline Phosphatase 115 U/L (46-116) Aspartate Amino Transferase (AST) 20 U/L (13-40) Total Bilirubin 0.5 mg/dL (0.2-1.0) Urinalysis Test 09/09/24 22:45 Urine Color Yellow (Yellow) Urine Clarity Clear (Clear) Urine pH 6.5 (5.0-9.0) Urine Specific [place] 1.023 (1.001-1.035) Urine Protein 1+ (Negative) H Urine Ketones Negative (Negative) Urine Blood Negative /uL (Negative) Urine Nitrite Negative (Negative) Urine Bilirubin Negative (Negative) Urine Urobilinogen 6 mg/dL (Negative) Urine Leukocyte Esterase Negative /uL (Negative) Urine RBC 1 /hpf (0 - 4) Urine WBC 4 /hpf (0 - 5) Urine Squamous Epithelial Cells Few /hpf (<5) Urine Bacteria None seen /hpf (None Seen) Urine Mucus Few (None Seen) Urine Glucose Normal mg/dL (Normal) Microbiology Microbiology Date/Time Source Procedure Growth Status 08/31/24 03:35 Nose MRSA Screen - Final Complete Labs and/or images reviewed: Labs reviewed by me Assessment/Plan Assessment/Plan * Acute on chronic systolic heart failure * Hypothyroidism * Status post AICD. * Non-STEMI likely type 2. * s/p covid 19 * mod/severe malnutrition Continuing current management. Continuing with IV Lasix and Aldactone and also digoxin Continuing with tube feeding and mirtazapine. Continuing with ensure to help with nutrition support We will add Megace to her regimen to stimulate her appetite Encourage patient to eat and can bring food from home. DW about rehab, patient want to talk to her daughter first. Encourage the patient to work with PT, to be out of bed and ambulate. Plan discussed with: Patient My Orders Orders - CARLI MONTERROSO MD Procedure Category Date Status Time * Dietary Consult CONS 09/20/24 Transmitted 13:03 Nutritional PHA 09/21/24 In Process Supplements (Jevity 10:00 Date of Service: Sep 21, 2024 Billing Provider: CARLI MONTERROSO MD Common Visit Codes: [id number] INP/OBS CARE(HIGH) CARLI MONTERROSO MD Sep 21, 2024 11:23
[2024-09-21] MEDS ORDERED: Jevity 1.2 Cal/Fiber 1 Liter GT SCH ×2 (11:30)
--- NOTE | 2024-09-21 21:10 | DVHPN2 ---
Progress Note - Dictate Date Seen: Sep 21, 2024 Medical Necessity Reason Pt with a Central, PICC or Fol: No Subjective Patient seen and examined at bedside. On room air. No new complaints. vital signs Vital Sign Date Time Temp Pulse Resp B/P (MAP) Pulse Ox O2 Delivery O2 Flow Rate FiO2 09/21/24 17:00 97.8 66 16 136/52 (80) 97 97.8 09/21/24 08:00 Room Air* 0 21 Total Intake and Output 09/20/24 09/20/24 09/21/24 15:00 23:00 07:00 Intake Total 320 ml 250 ml Output Total 150 ml Balance 320 ml 100 ml medications Current Medications Medications Dose Ordered Sig/Tucker Route Start Time Stop Time Status Last Admin Dose Admin Levothyroxine Sodium 150 mcg QAM@0600 PO 09/04/24 14:15 UNV Nitroglycerin 0.4 mg Q5MINP PRN SL 09/15/24 23:30 Digoxin 0.125 mg DAILY PO 09/16/24 10:00 09/21/24 11:52 0.125 MG Ivabradine 5 mg BID PO 09/16/24 10:00 09/21/24 11:51 5 MG Enteral Nutritional Formula 240 ml QID PO 09/16/24 06:00 09/16/24 18:24 240 ML Apixaban 2.5 mg DAILY PO 09/16/24 10:00 09/21/24 11:52 2.5 MG Furosemide 20 mg DAILY IV 09/16/24 10:00 09/21/24 11:50 20 MG Potassium Chloride 20 meq DAILY PO 09/16/24 10:00 09/21/24 11:50 20 MEQ Spironolactone 25 mg DAILY PO 09/16/24 10:00 09/21/24 11:52 25 MG Levothyroxine Sodium 112 mcg QAM@0600 PO 09/16/24 06:00 09/21/24 05:40 112 MCG Ondansetron HCl 4 mg Q6HPRN PRN IV 09/15/24 23:30 Armodafinil 150 mg QAM@08 PO 09/16/24 08:00 09/21/24 11:51 150 MG Docusate Sodium 100 mg BID PO 09/16/24 10:00 09/20/24 22:15 100 MG Acetaminophen/ Hydrocodone Bitart 1 tab Q6HPRN PRN PO 09/16/24 10:30 09/19/24 15:13 1 TAB Enteral Nutritional Formula 1,000 ml DAILY PEG 09/21/24 10:00 Cancel Enteral Nutritional Formula 1,000 ml 50ML/HR GT 09/21/24 11:30 Cancel objective Gen.: Patient lying in bed in no apparent distress. Breathing on room air. Head: Normocephalic, atraumatic Eyes: EOMI/PERRLA. Ears: Normal hearing. Normal anatomy. Neck/trachea: Trachea midline, supple. Nose: Normal external anatomy. Mouth: Moist mucous membranes. Chest: Decreased air entry bilaterally. No wheezing or rhonchi. Cardio vascular: Pacemaker in place. Positive S1, positive S2. Regular rate and rhythm. Abdomen: Positive bowel sounds in all 4 quadrants. Soft, non-tender, non- distended. : Deferred. Rectal: Deferred Skin: Warm, dry. Extremities: 2+ radial pulses bilaterally. No lower extremity edema. Neuro: Awake, alert, oriented x3. No gross motor or sensory deficits. Cranial nerves II through XII intact. Gait not assessed. laboratory and microbiology Laboratory Tests 09/21/24 09:51 Test 09/21/24 09:51 Range/Units Serum Glucose 122 H 74-106 mg/dL Assessment/Plan Impression: Acute on chronic systolic congestive heart failure COPD Pulmonary edema CHF status post AICD placement Non ST-elevation myocardial infarction Status post COVID [id number] malnutrition Dyspnea on exertion Events: Breathing comfortably on room air. No respiratory distress. Continue incentive spirometry On spironolactone/Digoxin Diurese as tolerated on Lasix 20 mg IV QD Monitor renal function. Monitor electrolytes. Supplement as necessary. Cardiology recs appreciated. Patient awaiting heart transplant Nutritional support with Ensure via PEG. Continue Eliquis for DVT prophylaxis. Wound care Labs and imaging reviewed. Rest of plan as noted below. Plan: Chest x-ray imaging report reviewed. Cardiomegaly. Pulmonary edema. Small right pleural effusion. On room air Diurese to euvolemia Continue spironolactone, Corlanor, digoxin Nuvigil. Continue Eliquis for AFib. Monitor ins and outs. Monitor renal function Monitor electrolytes. Supplement as necessary. Ensure for nutritional supplementation Wound care DVT prophylaxis-on Eliquis. Prognosis: Poor given multiple comorbidities. Rest of plan per hospitalist and other consultants. Thank you Dr. Skaggs for allowing me to participate in this patient's care. Further recommendations will depend on patient's clinical course. Please do not hesitate to contact me if you have any questions or concerns. This medical document was created using an electronic medical record system with [employer] dictation system. Although this document has been carefully reviewed, there may still be some phonetic and typographical errors. These areas are purely typographical due to imperfections of the software programs, and do not reflect any compromise in the patient's medical care. Dietary Evaluation Review Comments: 1) Continue to monitor pt PO intake to meed at least 75% of meals 2) Consider TESSIE BID for wound 3) Continue current plan of care Expected Outcomes/Goals: 1) Pt appetite to improve 2) F/U in 3-5 days Plan discussed with: Patient, Other (SETH Samson) JEOVANNY DHILLON MD Sep 21, 2024 21:10
[2024-09-22 01:00] VITALS: BP 127/64; PULSE 72; RESP 24; TEMP 97.9; O2SAT 98
[2024-09-22 05:00] VITALS: BP 114/64; PULSE 65; RESP 20; TEMP 97.8; O2SAT 98
[2024-09-22 08:00] VITALS: PULSE 73; PULSE 76; RESP 24; O2SAT 8
[2024-09-22 09:00] VITALS: BP 102/64; PULSE 69; RESP 18; TEMP 98; O2SAT 96
[2024-09-22 13:00] VITALS: BP 112/64; PULSE 66; RESP 18; TEMP 97.9; O2SAT 97
--- NOTE | 2024-09-22 13:22 | DVHPN2 ---
Subjective The patient seen and examined at bedside. Complain of rectal pain. Still no have no appetite. Very weak Reviewed: Care Plan, H&P, Labs, Medications, Previous Orders, Radiology General: Per HPI Cardiovascular: Edema Objective Vitals Vital Signs Date Time Temp Pulse Resp B/P (MAP) Pulse Ox O2 Delivery O2 Flow Rate FiO2 09/22/24 10:33 69 09/22/24 10:00 102/64 09/22/24 09:00 98.0 18 96 98.0 09/21/24 20:00 Room Air* 0 21 Intake/Output Intake and Output 09/22/24 07:00 Intake Total 855 ml Output Total 100 ml Balance 755 ml Intake Oral 855 ml Output Urine Total 100 ml # Voids 2 # Bowel Movements 2 General Appearance: Alert, No acute distress HEENT: Atraumatic, PERRLA, EOMI, Mucous membr. moist/pink Neck: Supple Lungs: Clear to auscultation, Normal air movement Cardiovascular: Regular rate, Normal S1, Normal S2, No murmurs, Gallops, Rubs Abdomen: Normal bowel sounds, Soft, No tenderness Extremities: Normal pulses Neuro: Cranial nerves 3-12 NL Psych/Mental Status: Mental status NL Medications Current Medications Medications Dose Ordered Sig/Tucker Route Start Time Stop Time Status Last Admin Dose Admin Levothyroxine Sodium 150 mcg QAM@0600 PO 09/04/24 14:15 UNV Nitroglycerin 0.4 mg Q5MINP PRN SL 09/15/24 23:30 Digoxin 0.125 mg DAILY PO 09/16/24 10:00 09/22/24 10:33 0.125 MG Ivabradine 5 mg BID PO 09/16/24 10:00 09/22/24 10:00 5 MG Enteral Nutritional Formula 240 ml QID PO 09/16/24 06:00 09/16/24 18:24 240 ML Apixaban 2.5 mg DAILY PO 09/16/24 10:00 09/22/24 10:29 2.5 MG Furosemide 20 mg DAILY IV 09/16/24 10:00 09/21/24 11:50 20 MG Potassium Chloride 20 meq DAILY PO 09/16/24 10:00 09/22/24 10:30 20 MEQ Spironolactone 25 mg DAILY PO 09/16/24 10:00 09/22/24 10:29 25 MG Levothyroxine Sodium 112 mcg QAM@0600 PO 09/16/24 06:00 09/22/24 05:40 112 MCG Ondansetron HCl 4 mg Q6HPRN PRN IV 09/15/24 23:30 Armodafinil 150 mg QAM@08 PO 09/16/24 08:00 09/21/24 11:51 150 MG Docusate Sodium 100 mg BID PO 09/16/24 10:00 09/22/24 10:30 100 MG Acetaminophen/ Hydrocodone Bitart 1 tab Q6HPRN PRN PO 09/16/24 10:30 09/19/24 15:13 1 TAB Enteral Nutritional Formula 1,000 ml DAILY PEG 09/21/24 10:00 Cancel Enteral Nutritional Formula 1,000 ml 50ML/HR GT 09/21/24 11:30 Cancel Laboratory Results Laboratory Tests 09/21/24 09:51 Urinalysis Test 09/09/24 22:45 Urine Color Yellow (Yellow) Urine Clarity Clear (Clear) Urine pH 6.5 (5.0-9.0) Urine Specific [place] 1.023 (1.001-1.035) Urine Protein 1+ (Negative) H Urine Ketones Negative (Negative) Urine Blood Negative /uL (Negative) Urine Nitrite Negative (Negative) Urine Bilirubin Negative (Negative) Urine Urobilinogen 6 mg/dL (Negative) Urine Leukocyte Esterase Negative /uL (Negative) Urine RBC 1 /hpf (0 - 4) Urine WBC 4 /hpf (0 - 5) Urine Squamous Epithelial Cells Few /hpf (<5) Urine Bacteria None seen /hpf (None Seen) Urine Mucus Few (None Seen) Urine Glucose Normal mg/dL (Normal) Microbiology Microbiology Date/Time Source Procedure Growth Status 08/31/24 03:35 Nose MRSA Screen - Final Complete Assessment/Plan Assessment/Plan * Acute on chronic systolic heart failure * Hypothyroidism * Status post AICD. * Non-STEMI likely type 2. * s/p covid 19 * mod/severe malnutrition Continuing current management. Continuing with IV Lasix and Aldactone and also digoxin Continuing with tube feeding and mirtazapine. Continuing with ensure to help with nutrition support We will add Megace to her regimen to stimulate her appetite Encourage the patient to work with PT, to be out of bed and ambulate. Waiting for Dr. Philip to see the patient My Orders Orders - CARLI MONTERROSO MD Procedure Category Date Status Time Discharge DISCHARGE 09/22/24 Transmitted 13:20 CARLI MONTERROSO MD Sep 22, 2024 13:22
--- NOTE | 2024-09-22 22:31 | DVHPN2 ---
Progress Note - Dictate Date Seen: Sep 22, 2024 Medical Necessity Reason Pt with a Central, PICC or Fol: No Subjective Patient seen and examined at bedside. On room air. No new complaints. vital signs Vital Sign Date Time Temp Pulse Resp B/P (MAP) Pulse Ox O2 Delivery O2 Flow Rate FiO2 09/22/24 13:00 97.9 66 18 112/64 (80) 97 97.9 09/22/24 08:00 Room Air* 0 21 Total Intake and Output 09/21/24 09/21/24 09/22/24 14:59 22:59 06:59 Intake Total 750 ml 105 ml Output Total 100 ml Balance 750 ml 5 ml medications Current Medications Medications Dose Ordered Sig/Tucker Route Start Time Stop Time Status Last Admin Dose Admin Levothyroxine Sodium 150 mcg QAM@0600 PO 09/04/24 14:15 UNV Enteral Nutritional Formula 1,000 ml DAILY PEG 09/21/24 10:00 Cancel Enteral Nutritional Formula 1,000 ml 50ML/HR GT 09/21/24 11:30 Cancel objective Gen.: Patient lying in bed in no apparent distress. Breathing on room air. Head: Normocephalic, atraumatic Eyes: EOMI/PERRLA. Ears: Normal hearing. Normal anatomy. Neck/trachea: Trachea midline, supple. Nose: Normal external anatomy. Mouth: Moist mucous membranes. Chest: Decreased air entry bilaterally. No wheezing or rhonchi. Cardio vascular: Pacemaker in place. Positive S1, positive S2. Regular rate and rhythm. Abdomen: Positive bowel sounds in all 4 quadrants. Soft, non-tender, non- distended. : Deferred. Rectal: Deferred Skin: Warm, dry. Extremities: 2+ radial pulses bilaterally. No lower extremity edema. Neuro: Awake, alert, oriented x3. No gross motor or sensory deficits. Cranial nerves II through XII intact. Gait not assessed. laboratory and microbiology Laboratory Tests 09/21/24 09:51 Test 09/21/24 09:51 Range/Units Serum Glucose 122 H 74-106 mg/dL Assessment/Plan Impression: Acute on chronic systolic congestive heart failure COPD Pulmonary edema CHF status post AICD placement Non ST-elevation myocardial infarction Status post COVID [id number] malnutrition Dyspnea on exertion Events: Breathing comfortably on room air. No respiratory distress. Continue incentive spirometry On spironolactone/Digoxin Cardiology recs appreciated. Patient awaiting heart transplant Nutritional support with Ensure via PEG. Continue Eliquis for DVT prophylaxis. Wound care Patient is stable for discharge from the pulmonary standpoint. Labs and imaging reviewed. Rest of plan as noted below. Plan: Chest x-ray imaging report reviewed. Cardiomegaly. Pulmonary edema. Small right pleural effusion. On room air Maintain euvolemia Continue spironolactone, Corlanor, digoxin Nuvigil. Continue Eliquis for AFib. Monitor ins and outs. Monitor renal function Monitor electrolytes. Supplement as necessary. Ensure for nutritional supplementation Wound care DVT prophylaxis-on Eliquis. Prognosis: Poor given multiple comorbidities. Rest of plan per hospitalist and other consultants. Thank you Dr. Skaggs for allowing me to participate in this patient's care. Further recommendations will depend on patient's clinical course. Please do not hesitate to contact me if you have any questions or concerns. This medical document was created using an electronic medical record system with [employer] dictation system. Although this document has been carefully reviewed, there may still be some phonetic and typographical errors. These areas are purely typographical due to imperfections of the software programs, and do not reflect any compromise in the patient's medical care. Dietary Evaluation Review Comments: 1) Continue to monitor pt PO intake to meed at least 75% of meals 2) Consider TESSIE BID for wound 3) Continue current plan of care Expected Outcomes/Goals: 1) Pt appetite to improve 2) F/U in 3-5 days Plan discussed with: Patient, Other (SETH Morris) JEOVANNY DHILLON MD Sep 22, 2024 22:31
--- NOTE | 2024-09-24 08:27 | DVHPN2 ---
Progress Note - Dictate Date Seen: Sep 22, 2024 Medical Necessity Reason Pt with a Central, PICC or Fol: No Subjective HFrEF ACUTE DILATED CM S/P AICD HTN NOW WITH MARKED ELEVATED BNP ACUTE HFrEF DCM EF <20% cachexia/ anorexia NORMAL CORONARIES EF <20% S/P MITRAL VALVE CLIP BILATERAL PLEURAL EFFUSION HX OF THORACENTESIS NOW WITH ACUTE DECOMPENSATION NO CLINICAL OR RADIOGRAPHIC EVIDENCE FOR PNEUMONIA INCREASE SYNTHROID TO 200 CORRECT HYPOKALEMIA PT ADMITTED TO [facility] FOR HEART TRANSPLANT CURRENTLY NOT A CANDIDATE BECAUSE OF CACHEXIA S/P G TUBE PLACEMENT FOR NUTRITIONAL SUPPORT ONCE PT HAS ADEQUATE IMPROVEMENT IN NUTRITIONAL STATUS AND STRENGTH PT CAN BE BECOME ELIBILE FOR HEART TRANSPLANT vital signs Vital Sign Date Time Temp Pulse Resp B/P (MAP) Pulse Ox O2 Delivery O2 Flow Rate FiO2 09/22/24 13:00 97.9 66 18 112/64 (80) 97 97.9 09/22/24 08:00 Room Air* 0 21 medications Current Medications Medications Dose Ordered Sig/Tucker Route Start Time Stop Time Status Last Admin Dose Admin Levothyroxine Sodium 150 mcg QAM@0600 PO 09/04/24 14:15 UNV Enteral Nutritional Formula 1,000 ml DAILY PEG 09/21/24 10:00 Cancel Enteral Nutritional Formula 1,000 ml 50ML/HR GT 09/21/24 11:30 Cancel laboratory and microbiology Laboratory Tests 09/21/24 09:51 Test 09/21/24 09:51 Range/Units Serum Glucose 122 H 74-106 mg/dL Problem List HFrEF ACUTE DILATED CM S/P AICD HTN NOW WITH MARKED ELEVATED BNP ACUTE HFrEF DCM EF <20% cachexia/ anorexia NORMAL CORONARIES EF <20% S/P MITRAL VALVE CLIP BILATERAL PLEURAL EFFUSION HX OF THORACENTESIS NOW WITH ACUTE DECOMPENSATION NO CLINICAL OR RADIOGRAPHIC EVIDENCE FOR PNEUMONIA INCREASE SYNTHROID TO 200 CORRECT HYPOKALEMIA PT ADMITTED TO [facility] FOR HEART TRANSPLANT CURRENTLY NOT A CANDIDATE BECAUSE OF CACHEXIA S/P G TUBE PLACEMENT FOR NUTRITIONAL SUPPORT ONCE PT HAS ADEQUATE IMPROVEMENT IN NUTRITIONAL STATUS AND STRENGTH PT CAN BE BECOME ELIBILE FOR HEART TRANSPLANT Assessment/Plan TITRATE ON MEDS PT INCREASE NUTRITIONAL SUPPLEMENT WITH DIG AND CORLANOR HEART RATE CONTROLED START MEGACE DIC PANEL CONSIDER BONE MARROW BX ITP R/O START MEGACE INCREASE SYNTHROID TO 150 lise START PT ON PROVIGIL OR NUVIGIL DC ALL SEDATION PHYSICAL THERAPY ALL LABS UA BNP ECHO EF <10% LVH E CLIP NOTED LEFT PLEURAL EFFUSION LABS UA CXR BNP WILL TRANSFER TO SNF IF LABS AND HEMODYNAMIC STATUS ARE APPROPRIATE PT ALERT HAD 3 BOWEL MOVEMENTS BNP IMPROVED K CORRECTED PT IMPROVING NEEDS PROLONG REHAB LABS MAY TRANSFER TO REHAB FACILITY CONT CURRENT MEDS NEEDS INTENSE PT WITH NUTRITIONAL SUPPORT Dietary Evaluation Review Comments: 1) Continue to monitor pt PO intake to meed at least 75% of meals 2) Consider TESSIE BID for wound 3) Continue current plan of care Expected Outcomes/Goals: 1) Pt appetite to improve 2) F/U in 3-5 days Plan discussed with: Patient KALLIE GLASGOW MD Sep 24, 2024 08:27
--- NOTE | 2024-09-26 14:47 | DVHDS2 ---
Discharge Summary Date of Admission Aug 31, 2024 at 00:28 Date of Discharge: Sep 22, 2024 Admitting Diagnosis * Acute on chronic systolic heart failure * Hypothyroidism * Status post AICD. * Non-STEMI likely type 2. * s/p covid 19 * mod/severe malnutrition Labs/Diagnostic Data: Laboratory Results Test 09/21/24 09:51 09/19/24 08:33 09/12/24 13:29 09/09/24 22:45 White Blood Count 3.2 10^3/uL (4.4-10.8) Red Blood Count 4.27 10^6/uL (4.0-5.20) Hemoglobin 13.2 g/dL (12.2-16.2) Hematocrit 40.6 % (36.0-46.0) Mean Corpuscular Volume 95.1 fL (80.0-100.0) Mean Corpuscular Hemoglobin 30.8 pg (28.0-32.0) Mean Corpuscular Hemoglobin Concent 32.4 g/dL (32.0-36.0) Red Cell Distribution Width 17.6 % (11.8-14.3) Platelet Count 211 10^3/uL (140-450) Mean Platelet Volume 9.0 fL (6.9-10.8) Neutrophils (%) (Auto) 66.8 % (37.0-80.0) Lymphocytes (%) (Auto) 17.3 % (10.0-50.0) Monocytes (%) (Auto) 12.9 % (0.0-12.0) Eosinophils (%) (Auto) 1.2 % (0.0-7.0) Basophils (%) (Auto) 1.8 % (0.0-2.0) Neutrophils # (Auto) 2.1 10 ^3/uL (1.6-8.6) Lymphocytes # (Auto) 0.6 10 ^3/uL (0.4-5.4) Monocytes # (Auto) 0.4 10 ^3/uL (0-1.3) Eosinophils # (Auto) 0 10 ^3/uL (0-0.8) Basophils # (Auto) 0.1 10 ^3/uL (0-0.2) Nucleated Red Blood Cells 0.1 % Sodium Level 135 mmol/L (136-145) Potassium Level 3.7 mmol/L (3.5-5.1) Chloride Level 103 mmol/L (98-107) Carbon Dioxide Level 24 mmol/L (20-31) Anion Gap 8 (5-15) Blood Urea Nitrogen 15 mg/dL (9-23) Creatinine 0.54 mg/dL (0.550-1.02) Glomerular Filtration Rate Calc 103 mL/min (>90) BUN/Creatinine Ratio 27.8 (10.0-20.0) Serum Glucose 122 mg/dL (74-106) Calcium Level 9.1 mg/dL (8.7-10.4) Total Bilirubin 0.5 mg/dL (0.2-1.0) Aspartate Amino Transferase (AST) 20 U/L (13-40) Alanine Aminotransferase (ALT) 9 U/L (7-40) Alkaline Phosphatase 115 U/L (46-116) Total Protein 6.3 g/dL (5.7-8.2) Albumin 3.4 g/dL (3.2-4.8) B-Type Natriuretic Peptide 1461.09 pg/mL (0-100) Blood Gas Specimen Type Arterial Blood Gas Sample Site Right radial Blood Gas Patient Temperature 37.0 Arterial Blood Date Drawn [id number] Arterial Blood pH 7.476 (7.350-7.450) Arterial Blood Partial Pressure CO2 34.2 mmHg (32.0-45.0) Arterial Blood Partial Pressure O2 68.5 mmHg (83.0-108.0) Arterial Blood HCO3 24.7 mmol/L (21.0-28.0) Arterial Blood Oxygen Saturation 93.2 % (94.0-98.0) Arterial Blood Base Excess 1.5 mmol/L (-2.0-3.0) Arterial Blood Oxyhemoglobin 92.3 % (94.0-98.0) Arterial Blood Carboxyhemoglobin 0.8 % (0.5-1.5) Arterial Blood Methemoglobin 0.2 % (0.0-1.5) [place] Test Yes Blood Gas Total Hemoglobin 12.80 g/dL (12.0-16.0) Blood Gas Modality Room air FiO2 % 21.0 Urine Color Yellow (Yellow) Urine Clarity Clear (Clear) Urine pH 6.5 (5.0-9.0) Urine Specific [place] 1.023 (1.001-1.035) Urine Protein 1+ (Negative) Urine Ketones Negative (Negative) Urine Blood Negative /uL (Negative) Urine Nitrite Negative (Negative) Urine Bilirubin Negative (Negative) Urine Urobilinogen 6 mg/dL (Negative) Urine Leukocyte Esterase Negative /uL (Negative) Urine RBC 1 /hpf (0 - 4) Urine WBC 4 /hpf (0 - 5) Urine Squamous Epithelial Cells Few /hpf (<5) Urine Bacteria None seen /hpf (None Seen) Urine Mucus Few (None Seen) Urine Glucose Normal mg/dL (Normal) Test 09/04/24 05:33 09/03/24 13:25 09/01/24 05:10 08/31/24 18:18 Magnesium Level 1.8 mg/dL (1.6-2.6) Thyroid Stimulating Hormone (TSH) 20.63 uIU/mL (0.55-4.78) Digoxin Level 0.30 ng/mL (0.8-2) Fibrin Degradation Products <5 ug/mL (<5) Influenza Type A Antigen Negative (Negative) Influenza Type B Antigen Negative (Negative) SARS-CoV-2 Antigen (Rapid) Negative (NEGATIVE) Troponin I High Sensitivity 36 ng/L (</=34) Test 08/31/24 11:25 Platelet Estimate Decreased Clumped Platelets None Giant Platelets Few Lactate Dehydrogenase 321 U/L (120-246) Vitamin D 25-Hydroxy 47.4 ng/mL (30.0-100) Free Thyroxine (T4) Calculated 1.18 ng/dL (0.89-1.76) Free Triiodothyronine (T3) pg/mL 1.07 pg/mL (2.3-4.2) Other Laboratory Tests 09/21/24 09:51 Brief Hx & Hospital Course: This is a 64 years old female with past medical history significant for congestive heart failure with reduced ejection fraction of 10-20%, mitral regurgitation, status post mitraclip, dilated cardiomyopathy, cachexia, anorexia, chronic thrombocytopenia, previous history of cardiogenic shock status post AICD placement, waiting for heart transplant at [facility]. She come to emergency department again this time with complain of increased bilateral lower extremity weakness for the past couple month now progressive worse. The patient can not ambulate by herself. The patient lives with her and family who tried to help her to mobilize herself with a walker and other assist device and also wheelchair. The patient was admitted. The patient was found to have acute on chronic congestive heart failure. The patient was started on Aldactone, Lasix, and digoxin. The patient subsequently improved but still not able to walk. Patient also not able to eat. The patient had G-tube but refused tube feeding. We have tried the patient on multiple nutrition support such as ensure, Megace and encouraged the patient to bring home food to eat. However patient is still not eating and remained weak. Patient does work with physical therapy per unable to walk by herself without max assist. The patient subsequently improved but still deconditioning and required rehab. The patient will be discharged to custodial home facility today for further rehab. Activity as tolerated. Diet per home diet. Follow up with mural painter per schedule. Follow up with her primary care physician 1-2 weeks. Follow up with heart transplant [facility] when patient improved and cachexia improve. Physical exam: HEENT: Normocephalic atraumatic pupils equal react to light and accommodation. Extraocular muscles intact, conjunctiva pink, oropharynx moist, no thrush, no exudate. Lymphatic: No lymphadenopathy Cardiovascular exam: S1, S2 was heard. No murmurs, rubs, gallops Lung: Clear on auscultation bilaterally, no wheeze, rale, rhonchi. GI: Abdominal soft, nondistended, nontenderness, positive bowel sounds. Extremity: No crepitus, cyanosis, edema. Pedal pulses present bilateral. Full range of motion. Skin: Normal turgor, no rash. Psych: Alert, oriented x3. Neurology: No focal deficits, cranial nerve II to XII grossly intact. Condition at Discharge: Stable Final Diagnosis/Problems List * Acute on chronic systolic heart failure * Hypothyroidism * Status post AICD. * Non-STEMI likely type 2. * s/p covid 19 * mod/severe malnutrition *Deconditioning Discharge Disposition: Alf Facility Discharge Instruct/Medications Diet: Cardiac 2g Na,low cholest Activity: No Restrictions, As Tolerated Discharge Statement: "Patient was advised to return to the ER or call 911 if any headaches, dizziness, shortness of breath, chest pain, abdominal pain, bleeding, fevers, or worsening of medical condition. Patient was counseled about treatment plan, medications, possible side effects, patientverbalized understanding. All questions were answered to the best of my ability. This discharge took greater then 30 minutes in planning, reviewing documentation, counseling the patient, and discussing with other team members." ASSESSMENT ASSESSMENT Assessment see above Date of Service: Sep 22, 2024 Billing Provider: CARLI MONTERROSO MD Common Visit Codes: 46132-VRO/OBS DISCH DAY >30min CARLI MONTERROSO MD Sep 26, 2024 14:47
== END 2024-09-22 16:23 | DRG 280 ==
LOC: TELE-WESTW 08-31 00:28 → UNDODISIN 09-15 18:00 → TELE-WESTW 09-15 21:39
PROVIDERS: ADMIT Internal Medicine; ATTEND Internal Medicine
DX: I11.0 Hypertensive heart disease with heart failure (principal); E43 Unspecified severe protein-calorie malnutrition; I21.A1 Myocardial infarction type 2; I50.23 Acute on chronic systolic (congestive) heart failure; I82.441 Acute embolism and thrombosis of right tibial vein; R64 Cachexia; Z68.1 Body mass index [BMI] 19.9 or less, adult; D69.6 Thrombocytopenia, unspecified; Z20.822 Contact with and (suspected) exposure to COVID-19; D64.9 Anemia, unspecified; E87.6 Hypokalemia; E03.9 Hypothyroidism, unspecified; J44.9 Chronic obstructive pulmonary disease, unspecified; K62.89 Other specified diseases of anus and rectum; I95.9 Hypotension, unspecified; E78.5 Hyperlipidemia, unspecified; Z95.810 Presence of automatic (implantable) cardiac defibrillator; Z79.01 Long term (current) use of anticoagulants; Z83.3 Family history of diabetes mellitus; Z82.49 Family history of ischemic heart disease and other diseases of the circulatory system; Z86.16 Personal history of COVID-19; Z79.899 Other long term (current) drug therapy
CPT/HCPCS: 36415; 36600; 71045; 80048; 80053; 80162; 81001; 82306; 82805; 83615; 83735; 83880; 84439; 84443; 84481; 84484; 85025; 85362; 87081; 87426; 87804; 93306; 93970; 97110; 97116; 97163; 97530; G0378; J2003; J2405; J3480

== ENCOUNTER 2024-12-04 08:20 | Inpatient (IN) | payer MEDICARE, MEDICAID ==
[~2024-12-04] VITALS: Ht 157.5 cm; Wt 58.8 kg
--- NOTE | 2024-12-04 09:01 | DVH ---
CHEST RADIOGRAPH Indication: pre-op Technique: Single frontal view of the chest was obtained COMPARISON: XY CHEST PORTABLE on DOS: 09/19/24, XY CHEST PORTABLE on DOS: 08/31/24, XY CHEST PORTABLE on DOS: 08/02/24, XY CHEST PORTABLE on DOS: 08/02/24, XY CHEST PORTABLE on DOS: 08/01/24 FINDINGS: Lines and Tubes: Left chest wall pacemaker / AICD. Lungs: Congestion Pleura: No effusion. No pneumothorax. Cardiomediastinal contours: Cardiomegaly Bones: Unremarkable IMPRESSION: Cardiomegaly. Congestion.
[2024-12-04 09:09] VITALS: PULSE 77; RESP 16; O2SAT 95
[2024-12-04 09:17] LABS: Basophils # (auto) 0 10 ^3/uL (0-0.2); Basophils % (auto) 0.6 % (0.0-2.0); Eosinophils # (auto) 0.2 10 ^3/uL (0-0.8); Eosinophils % (auto) 4.2 % (0.0-7.0); Hematocrit 41.2 % (36.0-46.0); Hemoglobin 13.7 g/dL (12.2-16.2); Lymphocytes # (auto) 0.8 10 ^3/uL (0.4-5.4); Lymphocytes % (auto) 17.7 % (10.0-50.0); Mean Corpuscular Hemoglobin 30.7 pg (28.0-32.0); Mean Corpuscular Hgb Conc. 33.3 g/dL (32.0-36.0); Mean Corpuscular Volume 92.2 fL (80.0-100.0); Monocytes # (auto) 0.4 10 ^3/uL (0-1.3); Monocytes % (auto) 9.7 % (0.0-12.0); Neutrophils # (auto) 3.1 10 ^3/uL (1.6-8.6); Neutrophils % (auto) 67.8 % (37.0-80.0); Platelet Count (auto) 213 10^3/uL (140-450); Red Blood Cells 4.47 10^6/uL (4.0-5.20); Red Cell Distribution Width 18.8 % (11.8-14.3); White Blood Cell 4.5 10^3/uL (4.4-10.8)
[2024-12-04 10:52] LABS: Chloride 106 mmol/L (98-107); Sodium 140 mmol/L (136-145)
[2024-12-04 10:53] LABS: Anion Gap 8 (5-15); Calcium 9.7 mg/dL (8.7-10.4); Carbon Dioxide 26 mmol/L (20-31)
[2024-12-04 10:58] LABS: Blood Urea Nitrogen 13 mg/dL (9-23)
--- NOTE | 2024-12-04 11:28 | ED.PDOC ---
History of Present Illness HPI Comments 64F with a feeding tube in place presents from sniff for feeding tube removal. Patient reports they stopped using the feeding tube for a while and patient is having some abdominal pain. She was evaluated by her primary who recomeneded admission. Chief Complaint: Tube Replacement Time Seen by MD: 08:28 Primary Care Provider: maya Reviewed Notes: Nurses Notes Allergies: Coded Allergies: NO KNOWN ALLERGIES (Unverified , 05/19/21) Home Meds Reported Medications Lorazepam (ATIVAN TABLET) 0.5 Mg Tb, 1 TAB PO QHSP PRN for FOR INSOMNIA for 30 Days, #90 07/10/24 Trazodone Hcl (Trazodone Hcl) 100 Mg Tab, 1 TAB PO QHSP PRN for FOR INSOMNIA for 30 Days, #30 07/10/24 Ergocalciferol (Vitamin D (Ergocalciferol) 50,000 Unit Cap, 1 CAP PO QWEEKLY for 90 Days, #12 07/09/24 Spironolactone (Spironolactone) 25 Mg Tab, 1 TAB PO DAILY for 30 Days, #30 07/09/24 Potassium Chloride (Potassium Chloride ER) 10 Meq Tab, 1 TAB PO DAILY for 30 Days, #30 07/09/24 Furosemide (Furosemide) 20 Mg Tab, 1 TAB PO DAILY for 30 Days, #30 07/09/24 Digoxin (Digoxin) 125 Mcg Tab, 1 TAB PO DAILY for 90 Days, #90 07/09/24 Cyanocobalamin (B-12) 500 Mcg Tab, 1 TAB PO DAILY for 30 Days, #30 07/09/24 Amiodarone Hcl (Amiodarone Hcl) 200 Mg Tab, 1 TAB PO DAILY for 90 Days, #90 05/24/24 Levothyroxine Sodium (Levothyroxine Sodium) 100 Mcg Cap, 1 TAB PO DAILY for 30 Days, #30 05/24/24 Olanzapine (OLANZAPINE) 5 Mg Tab, 1 TAB PO DAILY 02/09/24 Fexofenadine Hydrochloride (MIKEL ALLERGY) 180 Mg Tab, 1 TAB PO DAILY 02/09/24 Benazepril Hcl (Benazepril Hcl) 10 Mg Tab, 1 TAB PO DAILY for 90 Days, #90 02/08/24 Pantoprazole Sodium Sesquihydr (Pantoprazole Sodium) 40 Mg Tab, 1 TAB PO BID 02/08/24 Ibuprofen (Ibuprofen) 400 Mg Tab, 400 MG PO DAILYPRN, MG 01/07/21 Information Source: Patient Mode of Arrival: Wheelchair Past Medical History PAST MEDICAL HISTORY: Anxiety, CHF, CVA, HTN, [place], Thyroid Surgical History: Pacemaker STERILE TECH History: No Pertinent STERILE TECH History Family History Family History: Family hx of Cancer Social History Smoker: Non-Smoker Alcohol: Denies ETOH Use Drugs: Denies Drug Use Lives In: Home All Other Systems: Reviewed and Negative Physical Exam General Appearance: No Apparent Distress HEENT: PERRL/EOMI Neck: Normal Inspection Respiratory: No Respiratory Distress Cardiovascular: No Edema Breast Exam: Deferred Gastrointestinal: Other (feeding tube in place) Genitalia: Deferred Pelvic: Deferred Rectal: Deferred Extremities: No calf tenderness, Normal capillary refill, Normal inspection, Normal range of motion, Non-tender, No pedal edema Neurologic: No Motor Deficits Cerebellar Function: NOT DONE Reflexes: NOT DONE Skin: Dry, Normal Color, Warm Lymphatic: No Adenopathy Was a procedure done? Was a procedure done?: No Differential Dx Considerations may include: feeding tube complication, X-Ray, Labs, Meds, VS Vital Signs Date Time Temp Pulse Resp B/P (MAP) Pulse Ox O2 Delivery O2 Flow Rate FiO2 12/04/24 09:09 77 16 95 Room Air* 0 21 12/04/24 09:09 98.6 77 16 125/72 (89) 95 98.6 12/04/24 08:33 98.8 76 17 111/61 (78) 96 Lab Test 12/04/24 09:08 Range/Units White Blood Count 4.5 4.4-10.8 10^3/uL Red Blood Count 4.47 4.0-5.20 10^6/uL Hemoglobin 13.7 12.2-16.2 g/dL Hematocrit 41.2 36.0-46.0 % Mean Corpuscular Volume 92.2 80.0-100.0 fL Mean Corpuscular Hemoglobin 30.7 28.0-32.0 pg Mean Corpuscular Hemoglobin Concent 33.3 32.0-36.0 g/dL Red Cell Distribution Width 18.8 H 11.8-14.3 % Platelet Count 213 140-450 10^3/uL Mean Platelet Volume 8.6 6.9-10.8 fL Neutrophils (%) (Auto) 67.8 37.0-80.0 % Lymphocytes (%) (Auto) 17.7 10.0-50.0 % Monocytes (%) (Auto) 9.7 0.0-12.0 % Eosinophils (%) (Auto) 4.2 0.0-7.0 % Basophils (%) (Auto) 0.6 0.0-2.0 % Neutrophils # (Auto) 3.1 1.6-8.6 10 ^3/uL Lymphocytes # (Auto) 0.8 0.4-5.4 10 ^3/uL Monocytes # (Auto) 0.4 0-1.3 10 ^3/uL Eosinophils # (Auto) 0.2 0-0.8 10 ^3/uL Basophils # (Auto) 0 0-0.2 10 ^3/uL Nucleated Red Blood Cells 0.0 % Sodium Level 140 136-145 mmol/L Potassium Level 4.0 3.5-5.1 mmol/L Chloride Level 106 98-107 mmol/L Carbon Dioxide Level 26 20-31 mmol/L Anion Gap 8 5-15 Blood Urea Nitrogen 13 9-23 mg/dL Creatinine 0.59 0.550-1.02 mg/dL Glomerular Filtration Rate Calc 101 >90 mL/min BUN/Creatinine Ratio 22.0 H 10.0-20.0 Serum Glucose Pending Calcium Level 9.7 8.7-10.4 mg/dL Time of 1ST Reevaluation: 11:27 Reevaluation 1ST: Unchanged Patient Education/Counseling: Diagnosis, Treatment Family Education/Counseling: Diagnosis, Treatment Departure 1 Departure Time of Disposition: 11:27 (Patient with feeding tube complication. will admit patient for further workup and expert consultation. ) Impression: Primary Impression: Feeding tube dysfunction Qualified Codes: T85.598A - Other mechanical complication of other gastrointestinal prosthetic devices, implants and grafts, initial encounter Disposition: ADMITTED INPATIENT Admit to: Med Surg Condition: Serious Critical Care Note Critical Care Time?: No Stability Stability form required: No Heart Score Heart Score: Heart Score Response (Comments) Value History N/A 0 EKG N/A 0 Age N/A 0 Risk Factors N/A 0 Troponin N/A 0 Total 0 KASHIF CLARKE MD Dec 04, 2024 11:28
[2024-12-04 11:31] LABS: Glucose 87 mg/dL (74-106)
[2024-12-04] MEDS ORDERED: ACETAMINOPHEN 325 MG TAB PO PRN (13:30)
[2024-12-04] MEDS ORDERED: ONDANSETRON HCL 4 MG/2 ML VIAL IV PRN (13:30)
[2024-12-04] MEDS ORDERED: DOCUSATE SOD 100 MG CAP PO PRN (13:30)
[2024-12-04] MEDS ORDERED: LEVO112T4 PO (13:38)
[2024-12-04] MEDS ORDERED: LORazepam 0.5 MG TAB PO PRN (13:45)
--- NOTE | 2024-12-04 13:45 | DVHHP2 ---
History of Present Illness Reason for Visit: J tube removal History of Present Illness Belle Garcia is a 64-year-old female with past medical history of hypothyroidism, hypertension, CHF, anxiety, and PA, who was sent to the hospital by her primary care provider to have her J tube removed. Patient states that she has had the tube for about 4 months. She was hospitalized at [facility], she was intubated in ICU for about 3 weeks and needed the tube for feedings. She states she never tolerated the tube feedings very well. She state that after she was extubated she began eating PO food and stopped the tube feedings. Her primary care provider feels it can be removed now and sent her to the hospital to have it done. Cardiovascular: CHF, HTN, PA (2008) Endocrine: Hypothyroidism Smoke: No ALCOHOL: none Drugs: None Lives: with Family Domestic Violence: Neg Review of Systems Constitutional: No: Fever, Chills, Sweats, Weakness, Malaise, Other Eyes: No: Pain, Vision change, Conjunctivae inflammation, Eyelid inflammation, Other, Redness ENT: No: Ear pain, Ear discharge, Nose pain, Nose discharge, Nose congestion, Mouth pain, Mouth swelling, Throat pain, Throat swelling, Other Respiratory: No: Cough, Dry, Shortness of breath, SOB with excertion, Wheezing, Hemoptysis, Pleuritic Pain, Sputum, Wheezing, Other Cardiovascular: No: Chest Pain, Palpitations, Orthopnea, Paroxysmal Noc. Dyspnea, Edema, Lt Headedness, Other Gastrointestinal: No: Nausea, Vomiting, Abdominal Pain, Diarrhea, Constipation, Melena, Hematochezia, Other Genitourinary: No Dysuria, No Frequency, No Incontinence, No Hematuria, No Retention, No Other Musculoskeletal: No: other, neck pain, shoulder pain, arm pain, back pain, hand pain, leg pain, foot pain Skin: No: Rash, Lesions, Jaundice, Bruising, Other Neurological: No: Weakness, Numbness, Incoordination, Change in speech, Confusion, Seizures, Other Other J tube removal Allergies: Coded Allergies: NO KNOWN ALLERGIES (Unverified , 05/19/21) Medications Current Medications Medications Dose Ordered Sig/Tucker Route Start Time Stop Time Status Last Admin Dose Admin Sodium Chloride 10 ml Q8HR IV 12/04/24 14:00 UNV Acetaminophen/ Hydrocodone Bitart 1 tab Q4HP PRN PO 12/04/24 13:30 UNV Ondansetron HCl 4 mg Q4HP PRN IV 12/04/24 13:30 UNV Docusate Sodium 100 mg BIDPRN PRN PO 12/04/24 13:30 UNV Acetaminophen 650 mg Q6HP PRN PO 12/04/24 13:30 UNV Exam Vital Signs Vital Signs Date Time Temp Pulse Resp B/P (MAP) Pulse Ox O2 Delivery O2 Flow Rate FiO2 12/04/24 11:45 99.0 73 15 118/68 (85) 96 99.0 12/04/24 09:09 Room Air* 0 21 General Appearance: Alert, Oriented X3, Cooperative, No acute distress HEENT: Atraumatic, PERRLA Respiratory: Clear to auscultation, Normal air movement Cardiovascular: Regular rate, Normal S1, Normal S2, No murmurs Abdominal: Normal bowel sounds, Soft, No tenderness Extremities: No clubbing, No cyanosis, No edema, Normal pulses Skin: No rashes, No breakdown, No significant lesion Neuro: Normal gait, Normal speech, Strength at 5/5 X4 ext Psych/Mental Status: Mental status NL, Mood NL Labs/Xrays Labs Test 12/04/24 09:08 Range/Units White Blood Count 4.5 4.4-10.8 10^3/uL Red Blood Count 4.47 4.0-5.20 10^6/uL Hemoglobin 13.7 12.2-16.2 g/dL Hematocrit 41.2 36.0-46.0 % Mean Corpuscular Volume 92.2 80.0-100.0 fL Mean Corpuscular Hemoglobin 30.7 28.0-32.0 pg Mean Corpuscular Hemoglobin Concent 33.3 32.0-36.0 g/dL Red Cell Distribution Width 18.8 H 11.8-14.3 % Platelet Count 213 140-450 10^3/uL Mean Platelet Volume 8.6 6.9-10.8 fL Neutrophils (%) (Auto) 67.8 37.0-80.0 % Lymphocytes (%) (Auto) 17.7 10.0-50.0 % Monocytes (%) (Auto) 9.7 0.0-12.0 % Eosinophils (%) (Auto) 4.2 0.0-7.0 % Basophils (%) (Auto) 0.6 0.0-2.0 % Neutrophils # (Auto) 3.1 1.6-8.6 10 ^3/uL Lymphocytes # (Auto) 0.8 0.4-5.4 10 ^3/uL Monocytes # (Auto) 0.4 0-1.3 10 ^3/uL Eosinophils # (Auto) 0.2 0-0.8 10 ^3/uL Basophils # (Auto) 0 0-0.2 10 ^3/uL Nucleated Red Blood Cells 0.0 % Sodium Level 140 136-145 mmol/L Potassium Level 4.0 3.5-5.1 mmol/L Chloride Level 106 98-107 mmol/L Carbon Dioxide Level 26 20-31 mmol/L Anion Gap 8 5-15 Blood Urea Nitrogen 13 9-23 mg/dL Creatinine 0.59 0.550-1.02 mg/dL Glomerular Filtration Rate Calc 101 >90 mL/min BUN/Creatinine Ratio 22.0 H 10.0-20.0 Serum Glucose 87 74-106 mg/dL Calcium Level 9.7 8.7-10.4 mg/dL CHEST RADIOGRAPH FINDINGS: Lines and Tubes: Left chest wall pacemaker / AICD. Lungs: Congestion Pleura: No effusion. No pneumothorax. Cardiomediastinal contours: Cardiomegaly Bones: Unremarkable IMPRESSION: Cardiomegaly. Congestion. Assessment/Plan Assessment/Plan Assessment: Feeding tube dysfunction, Removal of J tube, CHF, Hypertension, Plan: Admit to Med-Surg, Consult GI, PTPTT, Home medications reconciled, Plan discussed with: Patient My Orders Orders - ASHVIN ZHOU Procedure Category Date Status Time Admit ADMIT 12/04/24 Transmitted 13:28 Code Status CODE 12/04/24 Transmitted 13:28 Sodium Chloride Lock PHA 12/04/24 Logged (Saline Lock Ns) 14:00 Hydrocodone-Acet PHA 12/04/24 Logged 5/325mg Tab ([place] 13:30 Ondansetron Hcl PHA 12/04/24 Logged (Zofran) 13:30 Docusate Sodium PHA 12/04/24 Logged Capsule (Colace 13:30 Complete Blood Count LAB 12/05/24 Verified 04:00 Comprehensive LAB 12/05/24 Verified Metabolic Panel 04:00 Cardiac DIET 12/04/24 Transmitted Diet-2gna,Lofat,Lochol Lunch Condition: Serious ANGLE 12/04/24 In Process 13:28 Acetaminophen Tablet PHA 12/04/24 Logged (Tylenol Tablet) 13:30 PTPTT LAB 12/04/24 Transmitted 13:28 * Gi [employer] 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
[2024-12-04] MEDS: SODIUM CHLOR 0.9% PF (SALINE LOCK) 10ML VIAL/SYR IV SCH (14:12)
[2024-12-04 14:42] LABS: INR 1.05 (0.9-1.15); Partial Thromboplastin Time 27.3 SEC (24.5-34.5); Prothrombin Time 11.1 sec (9.3-11.8)
[2024-12-04 18:30] VITALS: RESP 18; TEMP 99; O2SAT 98
[2024-12-04 21:19] VITALS: BP 115/70; PULSE 72; RESP 16; TEMP 98.1; O2SAT 95
[2024-12-04] MEDS ORDERED: IVAB1.7T PO (22:02)
[2024-12-04] MEDS ORDERED: MAGNSUS48 PO (22:02)
[2024-12-04] MEDS ORDERED: DOCU-94 PO (22:02)
[2024-12-04] MEDS ORDERED: MULTTAB75 PO (22:02)
[2024-12-04] MEDS ORDERED: NITR0.4S29 SL (22:02)
[2024-12-04] MEDS ORDERED: HYDR-4902 PO (22:02)
[2024-12-04] MEDS ORDERED: APIX2.5T PO (22:02)
[2024-12-04] MEDS ORDERED: NALO4SPR3 (22:02)
[2024-12-04] MEDS ORDERED: BISA10SU5 RE (22:02)
[2024-12-05] VITALS (7 sets, daily range): BP systolic 98–104; BP diastolic 0–59; PULSE 62–82; RESP 16–17; TEMP 97.6–97.9; O2SAT 95–99
[2024-12-05 06:05] LABS: Basophils # (auto) 0.1 10 ^3/uL (0-0.2); Basophils % (auto) 1.8 % (0.0-2.0); Eosinophils # (auto) 0.1 10 ^3/uL (0-0.8); Eosinophils % (auto) 3.2 % (0.0-7.0); Hematocrit 33.6 % (36.0-46.0); Hemoglobin 11.3 g/dL (12.2-16.2); Lymphocytes # (auto) 0.7 10 ^3/uL (0.4-5.4); Lymphocytes % (auto) 17.1 % (10.0-50.0); Mean Corpuscular Hemoglobin 30.7 pg (28.0-32.0); Mean Corpuscular Hgb Conc. 33.5 g/dL (32.0-36.0); Mean Corpuscular Volume 91.7 fL (80.0-100.0); Monocytes # (auto) 0.6 10 ^3/uL (0-1.3); Monocytes % (auto) 14.8 % (0.0-12.0); Neutrophils # (auto) 2.5 10 ^3/uL (1.6-8.6); Neutrophils % (auto) 63.1 % (37.0-80.0); Nucleated Red Blood Cells % 0.1 %; Platelet Count (auto) 170 10^3/uL (140-450); Red Blood Cells 3.67 10^6/uL (4.0-5.20); Red Cell Distribution Width 18.5 % (11.8-14.3)
[2024-12-05] MEDS: LEVOTHYROXINE SODIUM 112 MCG TAB PO SCH (06:12)
[2024-12-05 06:21] LABS: Alanine Aminotransferase 12 U/L (7-40); Alkaline Phosphatase 65 U/L (46-116); Anion Gap 7 (5-15); Aspartate Aminotransferase 18 U/L (13-40); BUN/Creatinine Ratio 27.4 (10.0-20.0); Bilirubin, Total 0.6 mg/dL (0.2-1.0); Blood Urea Nitrogen 17 mg/dL (9-23); Calcium 9.2 mg/dL (8.7-10.4); Carbon Dioxide 25 mmol/L (20-31); Glucose 83 mg/dL (74-106); Potassium 3.8 mmol/L (3.5-5.1); Sodium 140 mmol/L (136-145)
[2024-12-05 06:22] LABS: Total Protein 5.7 g/dL (5.7-8.2)
[2024-12-05 06:25] LABS: Albumin 3.1 g/dL (3.2-4.8); Chloride 108 mmol/L (98-107)
--- NOTE | 2024-12-05 11:09 | DVHPN2 ---
Progress Note Date Seen: Dec 05, 2024 Medical Necessity Reason Pt with a Central, PICC or Fol: No Subjective Patient reports: No new complaints Review of Systems: HEENT:Normal, CVS:Normal, RESPIRATORY:Normal, GI:Normal, :Normal, MSK:Normal, NEURO:Normal Objective vital signs Vital Sign Date Time Temp Pulse Resp B/P (MAP) Pulse Ox O2 Delivery O2 Flow Rate FiO2 12/05/24 09:13 97.7 70 16 98/49 (65) 97 97.7 12/04/24 20:00 Room Air* 0 21 medications Current Medications Medications Dose Ordered Sig/Tucker Route Start Time Stop Time Status Last Admin Dose Admin Sodium Chloride 10 ml Q8HR IV 12/04/24 14:00 12/05/24 05:39 10 ML Acetaminophen/ Hydrocodone Bitart 1 tab Q4HP PRN PO 12/04/24 13:30 Ondansetron HCl 4 mg Q4HP PRN IV 12/04/24 13:30 Docusate Sodium 100 mg BIDPRN PRN PO 12/04/24 13:30 Acetaminophen 650 mg Q6HP PRN PO 12/04/24 13:30 Cyanocobalamin 500 mcg DAILY PO 12/05/24 10:00 Lorazepam 0.5 mg QHSP PRN PO 12/04/24 13:45 Spironolactone 25 mg DAILY PO 12/05/24 10:00 Levothyroxine Sodium 112 mcg QAM PO 12/05/24 07:00 12/05/24 06:12 112 MCG Amiodarone HCl 200 mg DAILY PO 12/06/24 10:00 UNV Furosemide 20 mg DAILY PO 12/06/24 10:00 UNV Digoxin 0.125 mg DAILY PO 12/06/24 10:00 UNV Examination: GENERAL:Normal, HEENT:Normal, NECK:Normal, LUNGS:Normal, CVS:Normal, ABDOMEN:Normal, ABDOMEN:Abnormal (peg tube), MSK:Normal, SKIN:Normal, NEURO:Normal, :Normal laboratory and microbiology Laboratory Tests 12/05/24 05:28 Test 12/05/24 05:28 Range/Units Serum Glucose 83 74-106 mg/dL Problem List/Assessment/Plan Problem List/Assessment/Plan #1 peg tube malfunction: removal, gi eval #2 chronic systolic heart failure #3 Hypothyroidism #4 Status post AICD. #5 mod/severe malnutrition advance care planning- full code- time spent 19 mins Plan discussed with: Patient My Orders My Orders Orders - SMITHA ALDRIDGE MD Procedure Category Date Status Time * Cardiology Consult CONS 12/05/24 Transmitted 11:03 Amiodarone Tablet PHA 12/06/24 Transmitted (Cordarone Tablet) 10:00 Furosemide Tablet PHA 12/05/24 Transmitted (Lasix Tablet) 11:15 Furosemide Tablet PHA 12/06/24 Transmitted (Lasix Tablet) 10:00 Digoxin Tablet PHA 12/06/24 Transmitted (Lanoxin Tablet) 10:00 Urinalysis LAB 12/05/24 Uncollected 11:03 Basic Metabolic Panel LAB 12/06/24 Verified 06:00 Complete Blood Count LAB 12/06/24 Verified 06:00 Digoxin (Lanoxin) LAB 12/06/24 Verified 06:00 Thyroid Stimulating LAB 12/06/24 Verified Hormone 05:00 Pt Request For Service PT 12/05/24 Transmitted 11:07 Date of Service: Dec 05, 2024 Billing Provider: SMITHA ALDRIDGE MD Common Visit Codes: [id number] INP/OBS CARE(HIGH) Secondary Visit Codes: [id number] CARE PLAN 30 MINUTES SMITHA ALDRIDGE MD Dec 05, 2024 11:09
[2024-12-05] MEDS: SPIRONOLACTONE 25 MG TAB PO SCH (11:22)
[2024-12-05] MEDS: CYANOCOBALAMIN 500 MCG TAB PO SCH (11:22)
[2024-12-05] MEDS: FUROSEMIDE 20 MG TAB PO ONE (13:00)
--- NOTE | 2024-12-05 13:23 | DVHPN2 ---
Progress Note - Dictate Date Seen: Dec 04, 2024 Medical Necessity Reason Pt with a Central, PICC or Fol: No Subjective PT WITH SEVERE CACHEXIA NOW WITH G TUBE MALFUNCTION HFrEF ACUTE DILATED CM S/P AICD HTN NOW WITH MARKED ELEVATED BNP ACUTE HFrEF DCM EF <20% cachexia/ anorexia NORMAL CORONARIES EF <20% S/P MITRAL VALVE CLIP BILATERAL PLEURAL EFFUSION HX OF THORACENTESIS NOW WITH ACUTE DECOMPENSATION NO CLINICAL OR RADIOGRAPHIC EVIDENCE FOR PNEUMONIA INCREASE SYNTHROID TO 200 CORRECT HYPOKALEMIA PT ADMITTED TO [facility] FOR HEART TRANSPLANT CURRENTLY NOT A CANDIDATE BECAUSE OF CACHEXIA S/P G TUBE PLACEMENT FOR NUTRITIONAL SUPPORT ONCE PT HAS ADEQUATE IMPROVEMENT IN NUTRITIONAL STATUS AND STRENGTH PT CAN BE BECOME ELIBILE FOR HEART TRANSPLANT vital signs Vital Sign Date Time Temp Pulse Resp B/P (MAP) Pulse Ox O2 Delivery O2 Flow Rate FiO2 12/05/24 13:00 98/49 12/05/24 09:13 97.7 70 16 97 97.7 12/04/24 20:00 Room Air* 0 21 medications Current Medications Medications Dose Ordered Sig/Tucker Route Start Time Stop Time Status Last Admin Dose Admin Sodium Chloride 10 ml Q8HR IV 12/04/24 14:00 12/05/24 11:22 10 ML Acetaminophen/ Hydrocodone Bitart 1 tab Q4HP PRN PO 12/04/24 13:30 Ondansetron HCl 4 mg Q4HP PRN IV 12/04/24 13:30 Docusate Sodium 100 mg BIDPRN PRN PO 12/04/24 13:30 Acetaminophen 650 mg Q6HP PRN PO 12/04/24 13:30 Cyanocobalamin 500 mcg DAILY PO 12/05/24 10:00 12/05/24 11:22 500 MCG Lorazepam 0.5 mg QHSP PRN PO 12/04/24 13:45 Spironolactone 25 mg DAILY PO 12/05/24 10:00 12/05/24 11:22 25 MG Levothyroxine Sodium 112 mcg QAM PO 12/05/24 07:00 12/05/24 06:12 112 MCG Amiodarone HCl 200 mg DAILY PO 12/06/24 10:00 Furosemide 20 mg DAILY PO 12/06/24 10:00 Digoxin 0.125 mg DAILY PO 12/06/24 10:00 laboratory and microbiology Laboratory Tests 12/05/24 05:28 Test 12/05/24 05:28 Range/Units Serum Glucose 83 74-106 mg/dL Problem List SEVERE CACHEXIA NOW WITH G TUBE MALFUNCTION HFrEF ACUTE DILATED CM S/P AICD HTN NOW WITH MARKED ELEVATED BNP ACUTE HFrEF DCM EF <20% cachexia/ anorexia NORMAL CORONARIES EF <20% S/P MITRAL VALVE CLIP BILATERAL PLEURAL EFFUSION HX OF THORACENTESIS NOW WITH ACUTE DECOMPENSATION NO CLINICAL OR RADIOGRAPHIC EVIDENCE FOR PNEUMONIA INCREASE SYNTHROID TO 200 CORRECT HYPOKALEMIA PT ADMITTED TO [facility] FOR HEART TRANSPLANT CURRENTLY NOT A CANDIDATE BECAUSE OF CACHEXIA S/P G TUBE PLACEMENT FOR NUTRITIONAL SUPPORT ONCE PT HAS ADEQUATE IMPROVEMENT IN NUTRITIONAL STATUS AND STRENGTH PT CAN BE BECOME ELIGIBLE FOR HEART TRANSPLANT ANEMIA Assessment/Plan REPLACE G TUBE REINITIATE PT Plan discussed with: Patient Critical Care Time(min): 35 KALLIE GLASGOW MD Dec 05, 2024 13:23
--- NOTE | 2024-12-05 14:13 | DVHINCON2 ---
GI Consult Consult Note GI consult note Date of Consultation: 12/05/2024 Chief Complaint: Feeding tube dysfunction Referring Physician: Savana MORATAYA H&P: 64-year-old female presents to ER from [facility] for feeding tube removal Patient had feeding tube from [facility] five months ago for malnutrition. Patient admits to able to feed orally. No dysphagia. No nausea or vomiting. Per patient she has been gaining some weight and would like the tube to be removed completely Per cardiology notes patient is being assessed for possible heart transplant No hematemesis. No melena or red blood in stool. No blood thinners per patient Past Medical History: Anxiety, CHF, CVA, HTN, VT, Thyroid Past Surgical History: Pacemaker Social History: NO smoking, drinking ETOH and use of illegal drugs. Family History: Noncontributory Review of Systems: Constitutional: no fever, chill, weight loss HEENT: no eye pain, no hearing loss, no oral lesion, no scleral icterus Heart: no chest pain, no chest pressure Lung: no cough, no dyspnea with exertion Abdomen: see HPI Physical exam: General: NAD, AAOX3 Chest: lung nelson clear to auscultation Heart: RRR, no murmur Abdomen: non-distended, no tenderness to palpation, +BS, PEG tube in place no bleeding or redness noted Labs: Labs Test 12/05/24 05:28 12/04/24 13:46 Range/Units White Blood Count 4.0 L 4.4-10.8 10^3/uL Red Blood Count 3.67 L 4.0-5.20 10^6/uL Hemoglobin 11.3 #L 12.2-16.2 g/dL Hematocrit 33.6 #L 36.0-46.0 % Mean Corpuscular Volume 91.7 80.0-100.0 fL Mean Corpuscular Hemoglobin 30.7 28.0-32.0 pg Mean Corpuscular Hemoglobin Concent 33.5 32.0-36.0 g/dL Red Cell Distribution Width 18.5 H 11.8-14.3 % Platelet Count 170 140-450 10^3/uL Mean Platelet Volume 8.9 6.9-10.8 fL Neutrophils (%) (Auto) 63.1 37.0-80.0 % Lymphocytes (%) (Auto) 17.1 10.0-50.0 % Monocytes (%) (Auto) 14.8 H 0.0-12.0 % Eosinophils (%) (Auto) 3.2 0.0-7.0 % Basophils (%) (Auto) 1.8 0.0-2.0 % Neutrophils # (Auto) 2.5 1.6-8.6 10 ^3/uL Lymphocytes # (Auto) 0.7 0.4-5.4 10 ^3/uL Monocytes # (Auto) 0.6 0-1.3 10 ^3/uL Eosinophils # (Auto) 0.1 0-0.8 10 ^3/uL Basophils # (Auto) 0.1 0-0.2 10 ^3/uL Nucleated Red Blood Cells 0.1 % Sodium Level 140 136-145 mmol/L Potassium Level 3.8 3.5-5.1 mmol/L Chloride Level 108 H 98-107 mmol/L Carbon Dioxide Level 25 20-31 mmol/L Anion Gap 7 5-15 Blood Urea Nitrogen 17 9-23 mg/dL Creatinine 0.62 0.550-1.02 mg/dL Glomerular Filtration Rate Calc 99 >90 mL/min BUN/Creatinine Ratio 27.4 H 10.0-20.0 Serum Glucose 83 74-106 mg/dL Calcium Level 9.2 8.7-10.4 mg/dL Total Bilirubin 0.6 0.2-1.0 mg/dL Aspartate Amino Transferase (AST) 18 13-40 U/L Alanine Aminotransferase (ALT) 12 7-40 U/L Alkaline Phosphatase 65 46-116 U/L Total Protein 5.7 5.7-8.2 g/dL Albumin 3.1 L 3.2-4.8 g/dL Hepatitis C Antibody Negative Negative Prothrombin Time 11.1 9.3-11.8 sec Prothrombin Time INR 1.05 0.9-1.15 Activated Partial Thromboplast Time 27.3 24.5-34.5 SEC Imaging: Assessment: PEG tube malfunction CHF SP AICD Malnutrition Plan: Discussed with Dr. Darby Possible plan for EGD for Tuesday, we will clarify with hospitalist and buzzsaw operator if PEG tube needs to be removed or replaced Discussed plan with patient and RN Thank you for the consult Date of Service: Dec 05, 2024 Billing Provider: ALBERTO DAVIS Common Visit Codes: CONSULT ONLY Consultation Codes: [id number] CONSULT <60MIN, [id number] CONSULT <80MIN ALBERTO DAVIS Dec 05, 2024 14:13
[2024-12-06 01:00] VITALS: BP 94/48; PULSE 61; RESP 17; TEMP 98.1; O2SAT 97
[2024-12-06 05:00] VITALS: BP 103/58; PULSE 56; RESP 17; TEMP 98.1; O2SAT 97
[2024-12-06 06:40] LABS: Basophils # (auto) 0 10 ^3/uL (0-0.2); Basophils % (auto) 1.3 % (0.0-2.0); Eosinophils # (auto) 0.2 10 ^3/uL (0-0.8); Eosinophils % (auto) 5.9 % (0.0-7.0); Hematocrit 35.9 % (36.0-46.0); Lymphocytes # (auto) 0.8 10 ^3/uL (0.4-5.4); Lymphocytes % (auto) 21.6 % (10.0-50.0); Mean Corpuscular Hemoglobin 30.9 pg (28.0-32.0); Mean Corpuscular Hgb Conc. 33.5 g/dL (32.0-36.0); Mean Corpuscular Volume 92.3 fL (80.0-100.0); Monocytes # (auto) 0.5 10 ^3/uL (0-1.3); Monocytes % (auto) 13.9 % (0.0-12.0); Neutrophils # (auto) 2.1 10 ^3/uL (1.6-8.6); Neutrophils % (auto) 57.3 % (37.0-80.0); Nucleated Red Blood Cells % 0.1 %; Platelet Count (auto) 169 10^3/uL (140-450); Red Cell Distribution Width 18.9 % (11.8-14.3); White Blood Cell 3.6 10^3/uL (4.4-10.8)
[2024-12-06 06:41] LABS: Chloride 107 mmol/L (98-107); Potassium 3.8 mmol/L (3.5-5.1); Sodium 141 mmol/L (136-145)
[2024-12-06 06:42] LABS: Anion Gap 8 (5-15); Calcium 9.1 mg/dL (8.7-10.4); Carbon Dioxide 26 mmol/L (20-31)
[2024-12-06 06:47] LABS: BUN/Creatinine Ratio 21.3 (10.0-20.0); Blood Urea Nitrogen 13 mg/dL (9-23); Glucose 80 mg/dL (74-106)
--- NOTE | 2024-12-06 09:08 | DVHPN2 ---
Progress Note - Dictate Date Seen: Dec 06, 2024 Medical Necessity Reason Pt with a Central, PICC or Fol: No Subjective PT WITH SEVERE CACHEXIA NOW WITH G TUBE MALFUNCTION HFrEF ACUTE DILATED CM S/P AICD HTN NOW WITH MARKED ELEVATED BNP ACUTE HFrEF DCM EF <20% cachexia/ anorexia NORMAL CORONARIES EF <20% S/P MITRAL VALVE CLIP BILATERAL PLEURAL EFFUSION HX OF THORACENTESIS NOW WITH ACUTE DECOMPENSATION NO CLINICAL OR RADIOGRAPHIC EVIDENCE FOR PNEUMONIA INCREASE SYNTHROID TO 200 CORRECT HYPOKALEMIA PT ADMITTED TO [facility] FOR HEART TRANSPLANT CURRENTLY NOT A CANDIDATE BECAUSE OF CACHEXIA S/P G TUBE PLACEMENT FOR NUTRITIONAL SUPPORT ONCE PT HAS ADEQUATE IMPROVEMENT IN NUTRITIONAL STATUS AND STRENGTH PT CAN BE BECOME ELIBILE FOR HEART TRANSPLANT vital signs Vital Sign Date Time Temp Pulse Resp B/P (MAP) Pulse Ox O2 Delivery O2 Flow Rate FiO2 12/06/24 05:00 98.1 56 17 103/58 (73) 97 98.1 12/05/24 20:00 Room Air* 0 21 Total Intake and Output 12/05/24 12/05/24 12/06/24 15:00 23:00 07:00 Intake Total 210 ml 175 ml Balance 210 ml 175 ml medications Current Medications Medications Dose Ordered Sig/Tucker Route Start Time Stop Time Status Last Admin Dose Admin Sodium Chloride 10 ml Q8HR IV 12/04/24 14:00 12/06/24 06:15 10 ML Acetaminophen/ Hydrocodone Bitart 1 tab Q4HP PRN PO 12/04/24 13:30 Ondansetron HCl 4 mg Q4HP PRN IV 12/04/24 13:30 Docusate Sodium 100 mg BIDPRN PRN PO 12/04/24 13:30 Acetaminophen 650 mg Q6HP PRN PO 12/04/24 13:30 Cyanocobalamin 500 mcg DAILY PO 12/05/24 10:00 12/05/24 11:22 500 MCG Lorazepam 0.5 mg QHSP PRN PO 12/04/24 13:45 Spironolactone 25 mg DAILY PO 12/05/24 10:00 12/05/24 11:22 25 MG Levothyroxine Sodium 112 mcg QAM PO 12/05/24 07:00 12/06/24 06:14 112 MCG Amiodarone HCl 200 mg DAILY PO 12/06/24 10:00 Furosemide 20 mg DAILY PO 12/06/24 10:00 Digoxin 0.125 mg DAILY PO 12/06/24 10:00 laboratory and microbiology Laboratory Tests 12/06/24 05:33 Test 12/06/24 05:33 Range/Units Serum Glucose 80 74-106 mg/dL Problem List SEVERE CACHEXIA NOW WITH G TUBE MALFUNCTION HFrEF ACUTE DILATED CM S/P AICD HTN NOW WITH MARKED ELEVATED BNP ACUTE HFrEF DCM EF <20% cachexia/ anorexia NORMAL CORONARIES EF <20% S/P MITRAL VALVE CLIP BILATERAL PLEURAL EFFUSION HX OF THORACENTESIS NOW WITH ACUTE DECOMPENSATION NO CLINICAL OR RADIOGRAPHIC EVIDENCE FOR PNEUMONIA INCREASE SYNTHROID TO 200 CORRECT HYPOKALEMIA PT ADMITTED TO [facility] FOR HEART TRANSPLANT CURRENTLY NOT A CANDIDATE BECAUSE OF CACHEXIA S/P G TUBE PLACEMENT FOR NUTRITIONAL SUPPORT ONCE PT HAS ADEQUATE IMPROVEMENT IN NUTRITIONAL STATUS AND STRENGTH PT CAN BE BECOME ELIGIBLE FOR HEART TRANSPLANT ANEMIA Assessment/Plan REPLACE G TUBE REINITIATE PT ELEVATED TSH TITRATE SYNTHROID TO 150ug QD Plan discussed with: Patient KALLIE GLASGOW MD Dec 06, 2024 09:08
[2024-12-06] MEDS: DIGOXIN 0.125 MG TAB PO SCH (09:53)
[2024-12-06] MEDS: AMIODARONE HCL 200 MG TAB PO SCH (09:53)
[2024-12-06] MEDS: FUROSEMIDE 20 MG TAB PO SCH (09:53)
[2024-12-06 13:00] VITALS: BP 112/69; PULSE 71; RESP 18; TEMP 97.6; O2SAT 96
--- NOTE | 2024-12-06 14:55 | DVHPN2 ---
Progress Note Date Seen: Dec 06, 2024 Medical Necessity Reason Pt with a Central, PICC or Fol: No Subjective Patient reports: No new complaints Review of Systems: HEENT:Normal, CVS:Normal, RESPIRATORY:Normal, GI:Normal, :Normal, MSK:Normal, NEURO:Normal Objective vital signs Vital Sign Date Time Temp Pulse Resp B/P (MAP) Pulse Ox O2 Delivery O2 Flow Rate FiO2 12/06/24 13:00 97.6 71 18 112/69 (83) 96 97.6 12/06/24 07:55 Room Air* 0 21 Total Intake and Output 12/05/24 12/05/24 12/06/24 15:00 23:00 07:00 Intake Total 210 ml 175 ml Balance 210 ml 175 ml medications Current Medications Medications Dose Ordered Sig/Tucker Route Start Time Stop Time Status Last Admin Dose Admin Sodium Chloride 10 ml Q8HR IV 12/04/24 14:00 12/06/24 13:32 10 ML Acetaminophen/ Hydrocodone Bitart 1 tab Q4HP PRN PO 12/04/24 13:30 Ondansetron HCl 4 mg Q4HP PRN IV 12/04/24 13:30 Docusate Sodium 100 mg BIDPRN PRN PO 12/04/24 13:30 Acetaminophen 650 mg Q6HP PRN PO 12/04/24 13:30 Cyanocobalamin 500 mcg DAILY PO 12/05/24 10:00 12/06/24 09:52 500 MCG Lorazepam 0.5 mg QHSP PRN PO 12/04/24 13:45 Spironolactone 25 mg DAILY PO 12/05/24 10:00 12/06/24 09:53 25 MG Amiodarone HCl 200 mg DAILY PO 12/06/24 10:00 12/06/24 09:53 200 MG Furosemide 20 mg DAILY PO 12/06/24 10:00 12/06/24 09:53 20 MG Digoxin 0.125 mg DAILY PO 12/06/24 10:00 12/06/24 09:53 0.125 MG Levothyroxine Sodium 150 mcg QAM PO 12/07/24 07:00 Examination: GENERAL:Normal, HEENT:Normal, NECK:Normal, LUNGS:Normal, CVS:Normal, ABDOMEN:Normal, MSK:Normal, SKIN:Normal, NEURO:Normal, :Normal laboratory and microbiology Laboratory Tests 12/06/24 05:33 Test 12/06/24 05:33 Range/Units Serum Glucose 80 74-106 mg/dL Microbiology Date/Time Source Procedure Growth Status 12/05/24 07:05 Nose MRSA Screen - Final Methicillin Resistant S.aureus Complete Problem List/Assessment/Plan Problem List/Assessment/Plan #1 peg tube malfunction: removal in am #2 chronic systolic heart failure #3 Hypothyroidism #4 Status post AICD. #5 mod/severe malnutrition advance care planning- full code- time spent 19 mins Plan discussed with: Patient Date of Service: Dec 06, 2024 Billing Provider: SMITHA ALDRIDGE MD Common Visit Codes: [id number] INP/OBS CARE(HIGH) SMITHA ALDRIDGE MD Dec 06, 2024 14:55
[2024-12-06 16:41] VITALS: BP 99/52; PULSE 71; RESP 18; TEMP 98; O2SAT 96
[2024-12-06 20:00] VITALS: PULSE 72; RESP 16; O2SAT 97
[2024-12-06 21:00] VITALS: BP 93/49; PULSE 70; RESP 17; TEMP 98; O2SAT 94
--- NOTE | 2024-12-06 21:57 | DVHPN2 ---
Progress Note - Dictate Date Seen: Dec 06, 2024 Medical Necessity Reason Pt with a Central, PICC or Fol: No Subjective Patient seen at bedside, resting comfortably Dr. Patterson was recommending that the patient just have a tube exchange and continue tube feedings However patient states that she has gained 20 lb of weight and can not tolerate the ensure products She would like to have her gastrostomy tube removed She is tolerating regular diet vital signs Vital Sign Date Time Temp Pulse Resp B/P (MAP) Pulse Ox O2 Delivery O2 Flow Rate FiO2 12/06/24 16:41 98.0 71 18 99/52 (68) 96 98.0 12/06/24 07:55 Room Air* 0 21 Total Intake and Output 12/05/24 12/05/24 12/06/24 15:00 23:00 07:00 Intake Total 210 ml 175 ml Balance 210 ml 175 ml medications Current Medications Medications Dose Ordered Sig/Tucker Route Start Time Stop Time Status Last Admin Dose Admin Sodium Chloride 10 ml Q8HR IV 12/04/24 14:00 12/06/24 13:32 10 ML Acetaminophen/ Hydrocodone Bitart 1 tab Q4HP PRN PO 12/04/24 13:30 Ondansetron HCl 4 mg Q4HP PRN IV 12/04/24 13:30 Docusate Sodium 100 mg BIDPRN PRN PO 12/04/24 13:30 Acetaminophen 650 mg Q6HP PRN PO 12/04/24 13:30 Cyanocobalamin 500 mcg DAILY PO 12/05/24 10:00 12/06/24 09:52 500 MCG Lorazepam 0.5 mg QHSP PRN PO 12/04/24 13:45 Spironolactone 25 mg DAILY PO 12/05/24 10:00 12/06/24 09:53 25 MG Amiodarone HCl 200 mg DAILY PO 12/06/24 10:00 12/06/24 09:53 200 MG Furosemide 20 mg DAILY PO 12/06/24 10:00 12/06/24 09:53 20 MG Digoxin 0.125 mg DAILY PO 12/06/24 10:00 12/06/24 09:53 0.125 MG Levothyroxine Sodium 150 mcg QAM PO 12/07/24 07:00 objective General: NAD, AAOX3 Chest: lung nelson clear to auscultation Heart: RRR, no murmur Abdomen: non-distended, no tenderness to palpation, +BS, PEG tube in place no bleeding or redness noted laboratory and microbiology Laboratory Tests 12/06/24 05:33 Test 12/06/24 05:33 Range/Units Serum Glucose 80 74-106 mg/dL CXR IMPRESSION: Cardiomegaly. Congestion. Problems(with codes): (1) Feeding tube dysfunction (2) Weakness generalized (3) Hypothyroidism Prognosis Plan NPO after midnight I will schedule an endoscopy in a.m. for removal of PEG tube if cleared by Dr. Patterson Patient has been started on Synthroid or levothyroxine for hypothyroidism Plan discussed with: Patient, Other (Nurse) FRANCK ORTIZ MD Dec 06, 2024 21:57
[2024-12-07] VITALS (8 sets, daily range): BP systolic 92–110; BP diastolic 47–68; PULSE 56–90; RESP 16–20; TEMP 97.4–98; O2SAT 96–100
--- NOTE | 2024-12-07 05:13 | ECG ---
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
[2024-12-07] MEDS: LEVOTHYROXINE SODIUM 50 MCG TAB PO SCH (07:00)
--- NOTE | 2024-12-07 07:29 | DVHPN2 ---
Progress Note - Dictate Date Seen: Dec 07, 2024 Medical Necessity Reason Pt with a Central, PICC or Fol: No Subjective PT WITH SEVERE CACHEXIA NOW WITH G TUBE MALFUNCTION HFrEF ACUTE DILATED CM S/P AICD HTN NOW WITH MARKED ELEVATED BNP ACUTE HFrEF DCM EF <20% cachexia/ anorexia NORMAL CORONARIES EF <20% S/P MITRAL VALVE CLIP BILATERAL PLEURAL EFFUSION HX OF THORACENTESIS NOW WITH ACUTE DECOMPENSATION NO CLINICAL OR RADIOGRAPHIC EVIDENCE FOR PNEUMONIA INCREASE SYNTHROID TO 200 CORRECT HYPOKALEMIA PT ADMITTED TO [facility] FOR HEART TRANSPLANT CURRENTLY NOT A CANDIDATE BECAUSE OF CACHEXIA S/P G TUBE PLACEMENT FOR NUTRITIONAL SUPPORT ONCE PT HAS ADEQUATE IMPROVEMENT IN NUTRITIONAL STATUS AND STRENGTH PT CAN BE BECOME ELIBILE FOR HEART TRANSPLANT vital signs Vital Sign Date Time Temp Pulse Resp B/P (MAP) Pulse Ox O2 Delivery O2 Flow Rate FiO2 12/07/24 06:11 97.8 61 18 110/68 (82) 97 97.8 12/06/24 20:00 Room Air* 0 21 Total Intake and Output 12/06/24 12/06/24 12/07/24 15:00 23:00 07:00 Intake Total 480 ml 300 ml Balance 480 ml 300 ml medications Current Medications Medications Dose Ordered Sig/Tucker Route Start Time Stop Time Status Last Admin Dose Admin Sodium Chloride 10 ml Q8HR IV 12/04/24 14:00 12/07/24 05:12 10 ML Acetaminophen/ Hydrocodone Bitart 1 tab Q4HP PRN PO 12/04/24 13:30 Ondansetron HCl 4 mg Q4HP PRN IV 12/04/24 13:30 Docusate Sodium 100 mg BIDPRN PRN PO 12/04/24 13:30 Acetaminophen 650 mg Q6HP PRN PO 12/04/24 13:30 Cyanocobalamin 500 mcg DAILY PO 12/05/24 10:00 12/06/24 09:52 500 MCG Lorazepam 0.5 mg QHSP PRN PO 12/04/24 13:45 Spironolactone 25 mg DAILY PO 12/05/24 10:00 12/06/24 09:53 25 MG Amiodarone HCl 200 mg DAILY PO 12/06/24 10:00 12/06/24 09:53 200 MG Furosemide 20 mg DAILY PO 12/06/24 10:00 12/06/24 09:53 20 MG Digoxin 0.125 mg DAILY PO 12/06/24 10:00 12/06/24 09:53 0.125 MG Levothyroxine Sodium 150 mcg QAM PO 12/07/24 07:00 laboratory and microbiology Laboratory Tests 12/06/24 05:33 Test 12/06/24 05:33 Range/Units Serum Glucose 80 74-106 mg/dL Problem List SEVERE CACHEXIA NOW WITH G TUBE MALFUNCTION HFrEF ACUTE DILATED CM S/P AICD HTN NOW WITH MARKED ELEVATED BNP ACUTE HFrEF DCM EF <20% cachexia/ anorexia NORMAL CORONARIES EF <20% S/P MITRAL VALVE CLIP BILATERAL PLEURAL EFFUSION HX OF THORACENTESIS NOW WITH ACUTE DECOMPENSATION NO CLINICAL OR RADIOGRAPHIC EVIDENCE FOR PNEUMONIA INCREASE SYNTHROID TO 200 CORRECT HYPOKALEMIA PT ADMITTED TO [facility] FOR HEART TRANSPLANT CURRENTLY NOT A CANDIDATE BECAUSE OF CACHEXIA S/P G TUBE PLACEMENT FOR NUTRITIONAL SUPPORT ONCE PT HAS ADEQUATE IMPROVEMENT IN NUTRITIONAL STATUS AND STRENGTH PT CAN BE BECOME ELIGIBLE FOR HEART TRANSPLANT ANEMIA Assessment/Plan REPLACE G TUBE REINITIATE PT ELEVATED TSH TITRATE SYNTHROID TO 150ug QD PT ORAL INTAKE ADEQUATE WILL DC G TUBE PER PTs WISHES Plan discussed with: Patient KALLIE GLASGOW MD Dec 07, 2024 07:29
[2024-12-07] MEDS ORDERED: PROPOFOL 10 MG/ML 20 ML IV ONE (16:13)
--- NOTE | 2024-12-07 16:22 | DVHOP2 ---
Operative Report DATE OF OPERATION: 12/07/24 PROCEDURE: Upper Endoscopy with removal of PEG tube. PREOPERATIVE INDICATION: The patient is a 64 -year-old female undergoing endoscopy for malfunction of PEG tube requesting removal POSTOPERATIVE DIAGNOSES: 1. 5-6 cm sliding-type hiatal hernia with a slight Schatzki's ring at the GE junction 2. Minimal gastroduodenitis 3. Gastrostomy tube was moved endoscopically per orally as per standard protocol PROCEDURE PERFORMED BY: Franck Darby GI NURSE: Steven SCOPE: Olympus videoendoscope. ASA CLASS: 3. PREOPERATIVE MEDICATIONS: Mac sedation, Dr. Ramon PROCEDURE IN DETAIL: After obtaining an informed consent, the patient was placed on left lateral decubitus position. The patient was then sedated with the above medications. A bite block was placed between her teeth. The endoscope was then passed through the oropharynx, into the esophagus, and through the stomach and pylorus up to the second and third part of the duodenum. The endoscope was then withdrawn. The the phalange of the PEG tube was noted in the distal body of the stomach. A snare was used to grab the phalange and the PEG tube was disconnected or cut externally The phalange of the tube was pulled out per orally. A repeat endoscopy was performed . There was no mucosal injury. Patient had a 5-6 cm sliding-type hiatal hernia with slightly tight Schatzki's ring at the GE junction There was minimal gastroduodenitis. The patient tolerated the procedure well without difficulty. COMPLICATIONS : None SPECIMENS: None Old gastrostomy tube was given to the patient DISPOSITION: Transfer back to the floor Stable PLAN: 1. Await for biopsy result 2. Will place pt on Protonix 40 mg p.o. daily 3. Resume soft mechanical diet 4. Patient is stable for discharge from GI point of view 5. Outpatient with follow up with GI Services as needed FRANCK DARBY MD Dec 07, 2024 16:22
--- NOTE | 2024-12-07 20:14 | DVHPN2 ---
Subjective in bed resting and waiting to get PEG tube removed Changes from previous H/P or p: No Changes Eyes: No Pain, No Vision change, No Conjunctivae inflammation, No Eyelid inflammation, No Other, No Redness ENT: No Ear pain, No Ear discharge, No Nose pain, No Nose discharge, No Nose congestion, No Mouth pain, No Mouth swelling, No Throat pain, No Throat swelling, No Other Cardiovascular: No Chest Pain, No Palpitations, No Orthopnea, No Paroxysmal Noc. Dyspnea, No Edema, No Lt Headedness, No Other Respiratory: No Cough, No Dry, No Shortness of breath, No SOB with excertion, No Wheezing, No Hemoptysis, No Pleuritic Pain, No Sputum, No Other Gastrointestinal: No Nausea, No Vomiting, No Abdominal Pain, No Diarrhea, No Constipation, No Melena, No Hematochezia, No Other Genitourinary: No Dysuria, No Frequency, No Incontinence, No Hematuria, No Retention, No Other Musculoskeletal: No other, No neck pain, No shoulder pain, No arm pain, No back pain, No hand pain, No leg pain, No foot pain Skin: No Rash, No Lesions, No Jaundice, No Bruising, No Other Objective Vitals Vital Signs Date Time Temp Pulse Resp B/P (MAP) Pulse Ox O2 Delivery O2 Flow Rate FiO2 12/07/24 16:46 72 17 108/50 (69) 96 12/07/24 16:20 Room Air 0 12/07/24 16:20 96 12/07/24 16:16 98.2 98.2 Intake/Output Intake and Output 12/07/24 05:00 Intake Total 780 ml Balance 780 ml Intake Oral 780 ml # Voids 6 General Appearance: Alert, Oriented X3 Cardiovascular: Regular rate Medications Current Medications Medications Dose Ordered Sig/Tucker Route Start Time Stop Time Status Last Admin Dose Admin Sodium Chloride 10 ml Q8HR IV 12/04/24 14:00 12/07/24 15:13 10 ML Acetaminophen/ Hydrocodone Bitart 1 tab Q4HP PRN PO 12/04/24 13:30 Ondansetron HCl 4 mg Q4HP PRN IV 12/04/24 13:30 Docusate Sodium 100 mg BIDPRN PRN PO 12/04/24 13:30 Acetaminophen 650 mg Q6HP PRN PO 12/04/24 13:30 Cyanocobalamin 500 mcg DAILY PO 12/05/24 10:00 12/07/24 17:54 500 MCG Lorazepam 0.5 mg QHSP PRN PO 12/04/24 13:45 Spironolactone 25 mg DAILY PO 12/05/24 10:00 12/07/24 17:54 25 MG Amiodarone HCl 200 mg DAILY PO 12/06/24 10:00 12/06/24 09:53 200 MG Furosemide 20 mg DAILY PO 12/06/24 10:00 12/06/24 09:53 20 MG Digoxin 0.125 mg DAILY PO 12/06/24 10:00 12/06/24 09:53 0.125 MG Levothyroxine Sodium 150 mcg QAM PO 12/07/24 07:00 Laboratory Results Laboratory Tests 12/06/24 05:33 Microbiology Microbiology Date/Time Source Procedure Growth Status 12/05/24 07:05 Nose MRSA Screen - Final Methicillin Resistant S.aureus Complete Assessment/Plan Assessment/Plan #1 peg tube malfunction: removal in am #2 chronic systolic heart failure #3 Hypothyroidism #4 Status post AICD. #5 mod/severe malnutrition Plan discussed with: Patient Plan discussed with: Patient Date of Service: Dec 07, 2024 Billing Provider: JUDY CASTRO MD Common Visit Codes: [id number] INP/OBS CARE(HIGH) JUDY CASTRO MD Dec 07, 2024 20:14
[2024-12-08] VITALS (9 sets, daily range): BP systolic 84–102; BP diastolic 44–60; PULSE 64–78; RESP 15–18; TEMP 97.8–98.8; O2SAT 94–98
--- NOTE | 2024-12-08 18:52 | DVHPN2 ---
Subjective in bed resting Changes from previous H/P or p: No Changes Eyes: No Pain, No Vision change, No Conjunctivae inflammation, No Eyelid inflammation, No Other, No Redness ENT: No Ear pain, No Ear discharge, No Nose pain, No Nose discharge, No Nose congestion, No Mouth pain, No Mouth swelling, No Throat pain, No Throat swelling, No Other Cardiovascular: No Chest Pain, No Palpitations, No Orthopnea, No Paroxysmal Noc. Dyspnea, No Edema, No Lt Headedness, No Other Respiratory: No Cough, No Dry, No Shortness of breath, No SOB with excertion, No Wheezing, No Hemoptysis, No Pleuritic Pain, No Sputum, No Other Gastrointestinal: No Nausea, No Vomiting, No Abdominal Pain, No Diarrhea, No Constipation, No Melena, No Hematochezia, No Other Genitourinary: No Dysuria, No Frequency, No Incontinence, No Hematuria, No Retention, No Other Musculoskeletal: No other, No neck pain, No shoulder pain, No arm pain, No back pain, No hand pain, No leg pain, No foot pain Skin: No Rash, No Lesions, No Jaundice, No Bruising, No Other Objective Vitals Vital Signs Date Time Temp Pulse Resp B/P (MAP) Pulse Ox O2 Delivery O2 Flow Rate FiO2 12/08/24 16:39 97.9 64 15 94/49 (64) 95 97.9 12/08/24 08:00 Room Air* 0 21 Intake/Output Intake and Output 12/08/24 05:00 Intake Total 920 ml Balance 920 ml Intake Oral 920 ml # Voids 4 # Bowel Movements 2 General Appearance: Alert, Oriented X3 Cardiovascular: Regular rate Medications Current Medications Medications Dose Ordered Sig/Tucker Route Start Time Stop Time Status Last Admin Dose Admin Sodium Chloride 10 ml Q8HR IV 12/04/24 14:00 12/08/24 14:00 10 ML Acetaminophen/ Hydrocodone Bitart 1 tab Q4HP PRN PO 12/04/24 13:30 Ondansetron HCl 4 mg Q4HP PRN IV 12/04/24 13:30 Docusate Sodium 100 mg BIDPRN PRN PO 12/04/24 13:30 Acetaminophen 650 mg Q6HP PRN PO 12/04/24 13:30 Cyanocobalamin 500 mcg DAILY PO 12/05/24 10:00 12/08/24 11:08 500 MCG Lorazepam 0.5 mg QHSP PRN PO 12/04/24 13:45 Spironolactone 25 mg DAILY PO 12/05/24 10:00 12/08/24 11:08 25 MG Amiodarone HCl 200 mg DAILY PO 12/06/24 10:00 12/08/24 11:08 200 MG Furosemide 20 mg DAILY PO 12/06/24 10:00 12/06/24 09:53 20 MG Digoxin 0.125 mg DAILY PO 12/06/24 10:00 12/08/24 11:09 0.125 MG Levothyroxine Sodium 150 mcg QAM PO 12/07/24 07:00 12/08/24 06:30 150 MCG Laboratory Results Laboratory Tests 12/06/24 05:33 Microbiology Microbiology Date/Time Source Procedure Growth Status 12/05/24 07:05 Nose MRSA Screen - Final Methicillin Resistant S.aureus Complete Assessment/Plan Assessment/Plan #1 peg tube malfunction: s/p PEG removal, diet #2 chronic systolic heart failure #3 Hypothyroidism #4 Status post AICD. #5 mod/severe malnutrition Plan discussed with: Patient Plan discussed with: Patient Date of Service: Dec 08, 2024 Billing Provider: JUDY CASTRO MD Common Visit Codes: [id number] INP/OBS CARE(HIGH) JUDY CASTRO MD Dec 08, 2024 18:52
--- NOTE | 2024-12-08 21:28 | DVHPN2 ---
Progress Note - Dictate Date Seen: Dec 08, 2024 Medical Necessity Reason Pt with a Central, PICC or Fol: No Subjective Patient seen at bedside, resting comfortably . S/P EGD with removal of PEG tube G-tube site is clean with a dry dressing Patient has minimal abdominal pain vital signs Vital Sign Date Time Temp Pulse Resp B/P (MAP) Pulse Ox O2 Delivery O2 Flow Rate FiO2 12/08/24 20:00 16 96 Room Air* 0 21 12/08/24 16:39 97.9 64 94/49 (64) 97.9 Total Intake and Output 12/07/24 12/07/24 12/08/24 15:00 23:00 07:00 Intake Total 220 ml 700 ml Balance 220 ml 700 ml medications Current Medications Medications Dose Ordered Sig/Tucker Route Start Time Stop Time Status Last Admin Dose Admin Sodium Chloride 10 ml Q8HR IV 12/04/24 14:00 12/08/24 14:00 10 ML Acetaminophen/ Hydrocodone Bitart 1 tab Q4HP PRN PO 12/04/24 13:30 Ondansetron HCl 4 mg Q4HP PRN IV 12/04/24 13:30 Docusate Sodium 100 mg BIDPRN PRN PO 12/04/24 13:30 Acetaminophen 650 mg Q6HP PRN PO 12/04/24 13:30 Cyanocobalamin 500 mcg DAILY PO 12/05/24 10:00 12/08/24 11:08 500 MCG Lorazepam 0.5 mg QHSP PRN PO 12/04/24 13:45 Spironolactone 25 mg DAILY PO 12/05/24 10:00 12/08/24 11:08 25 MG Amiodarone HCl 200 mg DAILY PO 12/06/24 10:00 12/08/24 11:08 200 MG Furosemide 20 mg DAILY PO 12/06/24 10:00 12/06/24 09:53 20 MG Digoxin 0.125 mg DAILY PO 12/06/24 10:00 12/08/24 11:09 0.125 MG Levothyroxine Sodium 150 mcg QAM PO 12/07/24 07:00 12/08/24 06:30 150 MCG objective General: NAD, AAOX3 Chest: lung nelson clear to auscultation Heart: RRR, no murmur Abdomen: non-distended, no tenderness to palpation, +BS, PEG tube in place no bleeding or redness noted laboratory and microbiology Laboratory Tests 12/06/24 05:33 Test 12/06/24 05:33 Range/Units Serum Glucose 80 74-106 mg/dL Problems(with codes): (1) ANEMIA NOS (2) Weakness generalized (3) Feeding tube dysfunction Prognosis Plan Continue supportive care Advance diet as tolerated Local G-tube site care explained Discharge planning as per hospitalist Outpatient follow up with GI Services as needed Plan discussed with: Patient, Other (Dr Flores) FRANCK ORTIZ MD Dec 08, 2024 21:28
[2024-12-09 01:00] VITALS: BP 101/65; PULSE 60; RESP 18; TEMP 97.8; O2SAT 97
[2024-12-09 05:00] VITALS: BP 98/55; PULSE 57; RESP 18; TEMP 97.7; O2SAT 96
[2024-12-09 09:00] VITALS: BP 102/61; PULSE 70; RESP 18; TEMP 98.1; O2SAT 95
[2024-12-09] MEDS: HYDROcodone-ACET 5/325MG TAB PO PRN (11:52)
[2024-12-09 13:00] VITALS: BP 101/72; PULSE 60; RESP 18; TEMP 97.9; O2SAT 94
[2024-12-09] MEDS: MUPIROCIN 2% OINT 15gm or 22gm FOR MRSA NARES EACHNOSTRI SCH (13:49)
[2024-12-09 17:00] VITALS: BP 106/74; PULSE 70; RESP 18; TEMP 98.6; O2SAT 98
--- NOTE | 2024-12-09 19:23 | DVHPN2 ---
Subjective in bed resting Changes from previous H/P or p: No Changes Eyes: No Pain, No Vision change, No Conjunctivae inflammation, No Eyelid inflammation, No Other, No Redness ENT: No Ear pain, No Ear discharge, No Nose pain, No Nose discharge, No Nose congestion, No Mouth pain, No Mouth swelling, No Throat pain, No Throat swelling, No Other Cardiovascular: No Chest Pain, No Palpitations, No Orthopnea, No Paroxysmal Noc. Dyspnea, No Edema, No Lt Headedness, No Other Respiratory: No Cough, No Dry, No Shortness of breath, No SOB with excertion, No Wheezing, No Hemoptysis, No Pleuritic Pain, No Sputum, No Other Gastrointestinal: No Nausea, No Vomiting, No Abdominal Pain, No Diarrhea, No Constipation, No Melena, No Hematochezia, No Other Genitourinary: No Dysuria, No Frequency, No Incontinence, No Hematuria, No Retention, No Other Musculoskeletal: No other, No neck pain, No shoulder pain, No arm pain, No back pain, No hand pain, No leg pain, No foot pain Skin: No Rash, No Lesions, No Jaundice, No Bruising, No Other Objective Vitals Vital Signs Date Time Temp Pulse Resp B/P (MAP) Pulse Ox O2 Delivery O2 Flow Rate FiO2 12/09/24 17:00 98.6 70 18 106/74 (85) 98 98.6 12/09/24 08:05 Room Air* 0 21 Intake/Output Intake and Output 12/09/24 05:00 Intake Total 1000 ml Balance 1000 ml Intake Oral 1000 ml # Voids 4 # Bowel Movements 1 General Appearance: Alert, Oriented X3 Cardiovascular: Regular rate Medications Current Medications Medications Dose Ordered Sig/Tucker Route Start Time Stop Time Status Last Admin Dose Admin Sodium Chloride 10 ml Q8HR IV 12/04/24 14:00 12/09/24 13:23 10 ML Acetaminophen/ Hydrocodone Bitart 1 tab Q4HP PRN PO 12/04/24 13:30 12/09/24 11:52 1 TAB Ondansetron HCl 4 mg Q4HP PRN IV 12/04/24 13:30 Docusate Sodium 100 mg BIDPRN PRN PO 12/04/24 13:30 Acetaminophen 650 mg Q6HP PRN PO 12/04/24 13:30 Cyanocobalamin 500 mcg DAILY PO 12/05/24 10:00 2/9/25 11:20 500 MCG Lorazepam 0.5 mg QHSP PRN PO 12/04/24 13:45 Spironolactone 25 mg DAILY PO 12/05/24 10:00 12/09/24 11:21 25 MG Amiodarone HCl 200 mg DAILY PO 12/06/24 10:00 12/09/24 11:21 200 MG Furosemide 20 mg DAILY PO 12/06/24 10:00 12/09/24 11:20 20 MG Digoxin 0.125 mg DAILY PO 12/06/24 10:00 12/09/24 11:21 0.125 MG Levothyroxine Sodium 150 mcg QAM PO 12/07/24 07:00 12/09/24 06:13 150 MCG Mupirocin 1 applic BID EACHNOSTRI 12/09/24 11:53 12/13/24 22:01 12/09/24 13:49 1 APPLIC Laboratory Results Laboratory Tests 12/06/24 05:33 Microbiology Microbiology Date/Time Source Procedure Growth Status 12/05/24 07:05 Nose MRSA Screen - Final Methicillin Resistant S.aureus Complete Assessment/Plan Assessment/Plan #1 peg tube malfunction: s/p PEG removal, diet>per surgery and be discharged. Needs CM for transport back to facility. #2 chronic systolic heart failure #3 Hypothyroidism #4 Status post AICD. #5 mod/severe malnutrition Plan discussed with: Patient. Plan to Discharge tomorrow Plan discussed with: Patient My Orders Orders - JUDY CASTRO MD Procedure Category Date Status Time Mupirocin 2% Oint PHA 12/09/24 In Process Mrsa Nares (Bactroban 11:53 Date of Service: Dec 09, 2024 Billing Provider: JUDY CASTRO MD Common Visit Codes: [id number] INP/OBS CARE(HIGH) JUDY CASTRO MD Dec 09, 2024 19:23
--- NOTE | 2024-12-09 19:24 | DVHPN2 ---
Progress Note - Dictate Date Seen: Dec 09, 2024 Medical Necessity Reason Pt with a Central, PICC or Fol: No Subjective Patient seen at bedside, resting comfortably . S/P EGD with removal of PEG tube G-tube site is clean with a dry dressing Patient has minimal abdominal pain vital signs Vital Sign Date Time Temp Pulse Resp B/P (MAP) Pulse Ox O2 Delivery O2 Flow Rate FiO2 12/09/24 17:00 98.6 70 18 106/74 (85) 98 98.6 12/09/24 08:05 Room Air* 0 21 Total Intake and Output 12/08/24 12/08/24 12/09/24 15:00 23:00 07:00 Intake Total 600 ml 400 ml Balance 600 ml 400 ml medications Current Medications Medications Dose Ordered Sig/Tucker Route Start Time Stop Time Status Last Admin Dose Admin Sodium Chloride 10 ml Q8HR IV 12/04/24 14:00 12/09/24 13:23 10 ML Acetaminophen/ Hydrocodone Bitart 1 tab Q4HP PRN PO 12/04/24 13:30 12/09/24 11:52 1 TAB Ondansetron HCl 4 mg Q4HP PRN IV 12/04/24 13:30 Docusate Sodium 100 mg BIDPRN PRN PO 12/04/24 13:30 Acetaminophen 650 mg Q6HP PRN PO 12/04/24 13:30 Cyanocobalamin 500 mcg DAILY PO 12/05/24 10:00 12/09/24 11:20 500 MCG Lorazepam 0.5 mg QHSP PRN PO 12/04/24 13:45 Spironolactone 25 mg DAILY PO 12/05/24 10:00 12/09/24 11:21 25 MG Amiodarone HCl 200 mg DAILY PO 12/06/24 10:00 12/09/24 11:21 200 MG Furosemide 20 mg DAILY PO 12/06/24 10:00 12/09/24 11:20 20 MG Digoxin 0.125 mg DAILY PO 12/06/24 10:00 12/09/24 11:21 0.125 MG Levothyroxine Sodium 150 mcg QAM PO 12/07/24 07:00 12/09/24 06:13 150 MCG Mupirocin 1 applic BID EACHNOSTRI 12/09/24 11:53 12/13/24 22:01 12/09/24 13:49 1 APPLIC objective General: NAD, AAOX3 Chest: lung nelson clear to auscultation Heart: RRR, no murmur Abdomen: non-distended, no tenderness to palpation, +BS, PEG tube in place no bleeding or redness noted laboratory and microbiology Laboratory Tests 12/06/24 05:33 Test 12/06/24 05:33 Range/Units Serum Glucose 80 74-106 mg/dL Problems(with codes): (1) ANEMIA NOS (2) Weakness generalized (3) Hypothyroidism (4) Feeding tube dysfunction Prognosis Plan Continue supportive care Advance diet as tolerated Local G-tube site care explained Discharge planning as per hospitalist Outpatient follow up with GI Services as needed Plan discussed with: Patient FRANCK ORTIZ MD Dec 09, 2024 19:24
[2024-12-09 21:00] VITALS: BP 92/52; PULSE 62; RESP 20; TEMP 98; O2SAT 95
[2024-12-10] VITALS (7 sets, daily range): BP systolic 84–105; BP diastolic 46–66; PULSE 58–70; RESP 14–20; TEMP 97.6–98.1; O2SAT 94–96
--- NOTE | 2024-12-10 11:28 | DVHDS2 ---
Discharge Summary Date of Admission Dec 04, 2024 at 13:28 Date of Discharge: Dec 10, 2024 Labs/Diagnostic Data: Laboratory Results Test 12/06/24 05:33 12/05/24 05:28 12/04/24 13:46 White Blood Count 3.6 10^3/uL (4.4-10.8) Red Blood Count 3.90 10^6/uL (4.0-5.20) Hemoglobin 12.0 g/dL (12.2-16.2) Hematocrit 35.9 % (36.0-46.0) Mean Corpuscular Volume 92.3 fL (80.0-100.0) Mean Corpuscular Hemoglobin 30.9 pg (28.0-32.0) Mean Corpuscular Hemoglobin Concent 33.5 g/dL (32.0-36.0) Red Cell Distribution Width 18.9 % (11.8-14.3) Platelet Count 169 10^3/uL (140-450) Mean Platelet Volume 8.9 fL (6.9-10.8) Neutrophils (%) (Auto) 57.3 % (37.0-80.0) Lymphocytes (%) (Auto) 21.6 % (10.0-50.0) Monocytes (%) (Auto) 13.9 % (0.0-12.0) Eosinophils (%) (Auto) 5.9 % (0.0-7.0) Basophils (%) (Auto) 1.3 % (0.0-2.0) Neutrophils # (Auto) 2.1 10 ^3/uL (1.6-8.6) Lymphocytes # (Auto) 0.8 10 ^3/uL (0.4-5.4) Monocytes # (Auto) 0.5 10 ^3/uL (0-1.3) Eosinophils # (Auto) 0.2 10 ^3/uL (0-0.8) Basophils # (Auto) 0 10 ^3/uL (0-0.2) Nucleated Red Blood Cells 0.1 % Sodium Level 141 mmol/L (136-145) Potassium Level 3.8 mmol/L (3.5-5.1) Chloride Level 107 mmol/L (98-107) Carbon Dioxide Level 26 mmol/L (20-31) Anion Gap 8 (5-15) Blood Urea Nitrogen 13 mg/dL (9-23) Creatinine 0.61 mg/dL (0.550-1.02) Glomerular Filtration Rate Calc 100 mL/min (>90) BUN/Creatinine Ratio 21.3 (10.0-20.0) Serum Glucose 80 mg/dL (74-106) Calcium Level 9.1 mg/dL (8.7-10.4) Thyroid Stimulating Hormone (TSH) 11.80 uIU/mL (0.55-4.78) Digoxin Level < 0.14 ng/mL (0.8-2) Total Bilirubin 0.6 mg/dL (0.2-1.0) Aspartate Amino Transferase (AST) 18 U/L (13-40) Alanine Aminotransferase (ALT) 12 U/L (7-40) Alkaline Phosphatase 65 U/L (46-116) Total Protein 5.7 g/dL (5.7-8.2) Albumin 3.1 g/dL (3.2-4.8) Hepatitis C Antibody Negative (Negative) Prothrombin Time 11.1 sec (9.3-11.8) Prothrombin Time INR 1.05 (0.9-1.15) Activated Partial Thromboplast Time 27.3 SEC (24.5-34.5) Other Laboratory Tests 12/06/24 05:33 Brief Hx & Hospital Course: see dictated note Condition at Discharge: Fair Final Diagnosis/Problems List peg removal Discharge Disposition: Alf Facility Discharge Instruct/Medications Diet: Cardiac 2g Na,low cholest Activity: No Restrictions, As Tolerated Follow Up/Referral: fu with dr Patterson in am Medications: per dec Discharge Statement: "Patient was advised to return to the ER or call 911 if any headaches, dizziness, shortness of breath, chest pain, abdominal pain, bleeding, fevers, or worsening of medical condition. Patient was counseled about treatment plan, medications, possible side effects, patientverbalized understanding. All questions were answered to the best of my ability. This discharge took greater then 30 minutes in planning, reviewing documentation, counseling the patient, and discussing with other team members." ASSESSMENT ASSESSMENT Assessment peg removal Date of Service: Dec 10, 2024 Billing Provider: SMITHA ALDRIDGE MD Common Visit Codes: [id number] DISCH DAY >30min SMITHA ALDRIDGE MD Dec 10, 2024 11:28
--- NOTE | 2024-12-10 11:54 | DVHDS ---
DATE OF DISCHARGE: 12/10/2024 HISTORY OF PRESENT ILLNESS: The patient is a 64-year-old lady who was admitted for removal of a PEG tube as she has been eating orally. The patient has history of congestive heart failure, hypothyroidism, hypertension and cardiomyopathy. HOSPITAL COURSE: The patient was seen in Cardiology consult by Dr. Patterson. She was seen in GI consult by Dr. Farida Darby. The patient underwent upper endoscopy with removal of gastrostomy tube on 12/07/2024. The patient currently is doing well and is tolerating oral diet. The patient will be transferred back to [place] with medication as per medication reconciliation. FINAL DIAGNOSES: Therefore, * PEG tube malfunction, status post removal. * Chronic systolic heart failure. * Hypothyroidism. * History of automatic implantable cardioverter-defibrillator. * Moderate protein malnutrition. Time spent in discharge planning and review of plan with patient, nursing and paperwork was 38 minutes. MD FAINA Salazar/GEETA TID: [id number] RECEIPT: [id number]
--- NOTE | 2024-12-10 12:36 | DVHPN2 ---
Progress Note - Dictate Date Seen: Dec 09, 2024 Medical Necessity Reason Pt with a Central, PICC or Fol: No Subjective PT WITH SEVERE CACHEXIA NOW WITH G TUBE MALFUNCTION HFrEF ACUTE DILATED CM S/P AICD HTN NOW WITH MARKED ELEVATED BNP ACUTE HFrEF DCM EF <20% cachexia/ anorexia NORMAL CORONARIES EF <20% S/P MITRAL VALVE CLIP BILATERAL PLEURAL EFFUSION HX OF THORACENTESIS NOW WITH ACUTE DECOMPENSATION NO CLINICAL OR RADIOGRAPHIC EVIDENCE FOR PNEUMONIA INCREASE SYNTHROID TO 200 CORRECT HYPOKALEMIA PT ADMITTED TO [facility] FOR HEART TRANSPLANT CURRENTLY NOT A CANDIDATE BECAUSE OF CACHEXIA S/P G TUBE PLACEMENT FOR NUTRITIONAL SUPPORT ONCE PT HAS ADEQUATE IMPROVEMENT IN NUTRITIONAL STATUS AND STRENGTH PT CAN BE BECOME ELIBILE FOR HEART TRANSPLANT vital signs Vital Sign Date Time Temp Pulse Resp B/P (MAP) Pulse Ox O2 Delivery O2 Flow Rate FiO2 12/10/24 09:50 105/66 12/10/24 09:49 63 12/10/24 08:30 97.6 14 96 97.6 12/10/24 08:00 Room Air* 0 21 Total Intake and Output 12/09/24 12/09/24 12/10/24 15:00 23:00 07:00 Intake Total 250 ml 200 ml 600 ml Output Total 6 ml 850 ml Balance 250 ml 194 ml -250 ml medications Current Medications Medications Dose Ordered Sig/Tucker Route Start Time Stop Time Status Last Admin Dose Admin Sodium Chloride 10 ml Q8HR IV 12/04/24 14:00 12/10/24 06:05 10 ML Acetaminophen/ Hydrocodone Bitart 1 tab Q4HP PRN PO 12/04/24 13:30 12/09/24 11:52 1 TAB Ondansetron HCl 4 mg Q4HP PRN IV 12/04/24 13:30 Docusate Sodium 100 mg BIDPRN PRN PO 12/04/24 13:30 Acetaminophen 650 mg Q6HP PRN PO 12/04/24 13:30 Cyanocobalamin 500 mcg DAILY PO 12/05/24 10:00 12/10/24 09:49 500 MCG Lorazepam 0.5 mg QHSP PRN PO 12/04/24 13:45 Spironolactone 25 mg DAILY PO 12/05/24 10:00 12/10/24 09:49 25 MG Amiodarone HCl 200 mg DAILY PO 12/06/24 10:00 12/10/24 09:48 200 MG Furosemide 20 mg DAILY PO 12/06/24 10:00 12/10/24 09:50 20 MG Digoxin 0.125 mg DAILY PO 12/06/24 10:00 12/10/24 09:49 0.125 MG Levothyroxine Sodium 150 mcg QAM PO 12/07/24 07:00 12/10/24 06:04 150 MCG Mupirocin 1 applic BID EACHNOSTRI 12/09/24 11:53 12/13/24 22:01 12/10/24 09:47 1 APPLIC laboratory and microbiology Laboratory Tests 12/06/24 05:33 Test 12/06/24 05:33 Range/Units Serum Glucose 80 74-106 mg/dL Problem List SEVERE CACHEXIA NOW WITH G TUBE MALFUNCTION HFrEF ACUTE DILATED CM S/P AICD HTN NOW WITH MARKED ELEVATED BNP ACUTE HFrEF DCM EF <20% cachexia/ anorexia NORMAL CORONARIES EF <20% S/P MITRAL VALVE CLIP BILATERAL PLEURAL EFFUSION HX OF THORACENTESIS NOW WITH ACUTE DECOMPENSATION NO CLINICAL OR RADIOGRAPHIC EVIDENCE FOR PNEUMONIA INCREASE SYNTHROID TO 200 CORRECT HYPOKALEMIA PT ADMITTED TO [facility] FOR HEART TRANSPLANT CURRENTLY NOT A CANDIDATE BECAUSE OF CACHEXIA S/P G TUBE PLACEMENT FOR NUTRITIONAL SUPPORT ONCE PT HAS ADEQUATE IMPROVEMENT IN NUTRITIONAL STATUS AND STRENGTH PT CAN BE BECOME ELIGIBLE FOR HEART TRANSPLANT ANEMIA Assessment/Plan REPLACE G TUBE REINITIATE PT ELEVATED TSH TITRATE SYNTHROID TO 150ug QD PT ORAL INTAKE ADEQUATE WILL DC G TUBE PER PTs WISHES G TUBE REMOVED ADEQUATE PO INTAKE DC HOME Plan discussed with: Patient, Daughter KALLIE GLASGOW MD Dec 10, 2024 12:36
--- NOTE | 2024-12-10 12:38 | DVHPN2 ---
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 FOR HEART TRANSPLANT CURRENTLY NOT A CANDIDATE BECAUSE OF CACHEXIA S/P G TUBE PLACEMENT FOR NUTRITIONAL SUPPORT ONCE PT HAS ADEQUATE IMPROVEMENT IN NUTRITIONAL STATUS AND STRENGTH PT CAN BE BECOME ELIBILE FOR HEART TRANSPLANT vital signs Vital Sign Date Time Temp Pulse Resp B/P (MAP) Pulse Ox O2 Delivery O2 Flow Rate FiO2 12/10/24 09:50 105/66 12/10/24 09:49 63 12/10/24 08:30 97.6 14 96 97.6 12/10/24 08:00 Room Air* 0 21 Total Intake and Output 12/09/24 12/09/24 12/10/24 15:00 23:00 07:00 Intake Total 250 ml 200 ml 600 ml Output Total 6 ml 850 ml Balance 250 ml 194 ml -250 ml medications Current Medications Medications Dose Ordered Sig/Tucker Route Start Time Stop Time Status Last Admin Dose Admin Sodium Chloride 10 ml Q8HR IV 12/04/24 14:00 12/10/24 06:05 10 ML Acetaminophen/ Hydrocodone Bitart 1 tab Q4HP PRN PO 12/04/24 13:30 12/09/24 11:52 1 TAB Ondansetron HCl 4 mg Q4HP PRN IV 12/04/24 13:30 Docusate Sodium 100 mg BIDPRN PRN PO 12/04/24 13:30 Acetaminophen 650 mg Q6HP PRN PO 12/04/24 13:30 Cyanocobalamin 500 mcg DAILY PO 12/05/24 10:00 12/10/24 09:49 500 MCG Lorazepam 0.5 mg QHSP PRN PO 12/04/24 13:45 Spironolactone 25 mg DAILY PO 12/05/24 10:00 12/10/24 09:49 25 MG Amiodarone HCl 200 mg DAILY PO 12/06/24 10:00 12/10/24 09:48 200 MG Furosemide 20 mg DAILY PO 12/06/24 10:00 12/10/24 09:50 20 MG Digoxin 0.125 mg DAILY PO 12/06/24 10:00 12/10/24 09:49 0.125 MG Levothyroxine Sodium 150 mcg QAM PO 12/07/24 07:00 12/10/24 06:04 150 MCG Mupirocin 1 applic BID EACHNOSTRI 12/09/24 11:53 12/13/24 22:01 12/10/24 09:47 1 APPLIC laboratory and microbiology Laboratory Tests 12/06/24 05:33 Test 12/06/24 05:33 Range/Units Serum Glucose 80 74-106 mg/dL Problem List SEVERE CACHEXIA NOW WITH G TUBE MALFUNCTION HFrEF ACUTE DILATED CM S/P AICD HTN NOW WITH MARKED ELEVATED BNP ACUTE HFrEF DCM EF <20% cachexia/ anorexia NORMAL CORONARIES EF <20% S/P MITRAL VALVE CLIP BILATERAL PLEURAL EFFUSION HX OF THORACENTESIS NOW WITH ACUTE DECOMPENSATION NO CLINICAL OR RADIOGRAPHIC EVIDENCE FOR PNEUMONIA INCREASE SYNTHROID TO 200 CORRECT HYPOKALEMIA PT ADMITTED TO [facility] FOR HEART TRANSPLANT CURRENTLY NOT A CANDIDATE BECAUSE OF CACHEXIA S/P G TUBE PLACEMENT FOR NUTRITIONAL SUPPORT ONCE PT HAS ADEQUATE IMPROVEMENT IN NUTRITIONAL STATUS AND STRENGTH PT CAN BE BECOME ELIGIBLE FOR HEART TRANSPLANT ANEMIA Assessment/Plan REPLACE G TUBE REINITIATE PT ELEVATED TSH TITRATE SYNTHROID TO 150ug QD PT ORAL INTAKE ADEQUATE WILL DC G TUBE PER PTs WISHES G TUBE REMOVED ADEQUATE PO INTAKE DC HOME FOLLOWUP IN 1 WEEK CAREFUL MONITORING OF THYROID FUNCTION Plan discussed with: Patient KALLIE GLASGOW MD Dec 10, 2024 12:38
== END 2024-12-10 17:45 | DRG 394 ==
LOC: ER 08:20 → OVERFLOW 13:28 → EAST 18:00
PROVIDERS: ADMIT Internal Medicine; ATTEND Internal Medicine
PROC: 0DP68UZ Removal of Feeding Device from Stomach, Via Natural or Artificial Opening Endoscopic (ICD-10-PCS; principal; 2024-12-07 16:01)
DX: K94.23 Gastrostomy malfunction (principal); E44.0 Moderate protein-calorie malnutrition; R64 Cachexia; I42.0 Dilated cardiomyopathy; I50.22 Chronic systolic (congestive) heart failure; I11.0 Hypertensive heart disease with heart failure; D64.9 Anemia, unspecified; E03.9 Hypothyroidism, unspecified; K44.9 Diaphragmatic hernia without obstruction or gangrene; K22.2 Esophageal obstruction; E87.6 Hypokalemia; I25.2 Old myocardial infarction; Z86.73 Personal history of transient ischemic attack (TIA), and cerebral infarction without residual deficits; Z95.810 Presence of automatic (implantable) cardiac defibrillator; Z79.899 Other long term (current) drug therapy; Z68.22 Body mass index [BMI] 22.0-22.9, adult
CPT/HCPCS: 36415; 71045; 80048; 80053; 80162; 84443; 85025; 85610; 85730; 86803; 86850; 86900; 86901; 87081; 93005; 96360; 97110; 97116; 97163; 97530; G0378; J2704

== ENCOUNTER → 2024-12-31 | Outpatient (CLI) | payer MEDICARE, MEDICAID ==
[~2024-12-31] MED LIST changes: +APIX2.5T PO; +BISA10SU5 RE; +DOCU-94 PO; -FEXO-42 PO; -FURO20TA3 PO; +HYDR-4902 PO; -IBUP-1453 PO; +IVAB1.7T PO; -LEVO100C3 PO; +LEVO112T4 PO; +MAGNSUS48 PO; +MULTTAB75 PO; +NALO4SPR3; +NITR0.4S29 SL; -OLAN1TAB7 PO; -PANT40T PO; -POTA-228 PO; -SPIR25TA8 PO; -TRAZ-228 PO; -[UNRECOGNIZED DRUG - CODE] PO
== END | disposition home or self-care (01) ==
LOC: Rad HDHVI 10:18
PROVIDERS: ATTEND Internal Medicine Cardiovascular Disease
DX: I11.0 Hypertensive heart disease with heart failure (principal); I50.33 Acute on chronic diastolic (congestive) heart failure
CPT/HCPCS: 93306

== ENCOUNTER → 2025-03-11 | Outpatient (CLI) | payer MEDICARE, MEDICAID ==
[~2025-03-11] MED LIST changes: +AMIO200T13 PO; +ASPI81CH59 PO; +MULT-1018 PO; +RIME75TA PO; +SPIR25TA8 PO
[2025-03-11 12:10] LABS: Basophils # (auto) 0.1 10 ^3/uL (0-0.2); Basophils % (auto) 1.4 % (0.0-2.0); Eosinophils # (auto) 0.3 10 ^3/uL (0-0.8); Eosinophils % (auto) 7.1 % (0.0-7.0); Hematocrit 38.4 % (36.0-46.0); Hemoglobin 13.3 g/dL (12.2-16.2); Lymphocytes # (auto) 0.9 10 ^3/uL (0.4-5.4); Lymphocytes % (auto) 23.7 % (10.0-50.0); Mean Corpuscular Hemoglobin 32.1 pg (28.0-32.0); Mean Corpuscular Hgb Conc. 34.5 g/dL (32.0-36.0); Monocytes # (auto) 0.3 10 ^3/uL (0-1.3); Monocytes % (auto) 8.7 % (0.0-12.0); Neutrophils # (auto) 2.2 10 ^3/uL (1.6-8.6); Neutrophils % (auto) 59.1 % (37.0-80.0); Nucleated Red Blood Cells % 0.1 %; Platelet Count (auto) 221 10^3/uL (140-450); Red Blood Cells 4.13 10^6/uL (4.0-5.20); Red Cell Distribution Width 15.9 % (11.8-14.3); White Blood Cell 3.7 10^3/uL (4.4-10.8)
[2025-03-11 12:30] LABS: Alanine Aminotransferase 17 U/L (7-40); Alkaline Phosphatase 101 U/L (46-116); Anion Gap 7 (5-15); Aspartate Aminotransferase 23 U/L (13-40); BUN/Creatinine Ratio 21.3 (10.0-20.0); Blood Urea Nitrogen 16 mg/dL (9-23); Calcium 9.9 mg/dL (8.7-10.4); Carbon Dioxide 28 mmol/L (20-31); Chloride 103 mmol/L (98-107); Glucose 92 mg/dL (74-106); Sodium 138 mmol/L (136-145); Total Protein 7.9 g/dL (5.7-8.2)
[2025-03-11 12:31] LABS: Albumin 4.4 g/dL (3.2-4.8); Bilirubin, Total 0.5 mg/dL (0.2-1.0)
[2025-03-11 12:33] LABS: Potassium 5.3 mmol/L (3.5-5.1)
== END | disposition home or self-care (01) ==
LOC: LAB 11:47
PROVIDERS: ATTEND Internal Medicine
DX: M62.81 Muscle weakness (generalized) (principal); R64 Cachexia; E03.9 Hypothyroidism, unspecified; I50.9 Heart failure, unspecified; Z95.810 Presence of automatic (implantable) cardiac defibrillator
CPT/HCPCS: 36415; 80053; 81001; 84443; 85025; 85610; 85730

== ENCOUNTER 2025-03-13 06:13 | Day surgery (SDC) | payer MEDICARE, MEDICAID ==
[2025-03-11 13:43] LABS: Basophils # (auto) 0.1 10 ^3/uL (0-0.2); Basophils % (auto) 1.2 % (0.0-2.0); Eosinophils # (auto) 0.2 10 ^3/uL (0-0.8); Eosinophils % (auto) 4.6 % (0.0-7.0); Hematocrit 38.9 % (36.0-46.0); Hemoglobin 13.2 g/dL (12.2-16.2); Lymphocytes # (auto) 1.1 10 ^3/uL (0.4-5.4); Lymphocytes % (auto) 21.6 % (10.0-50.0); Mean Corpuscular Hemoglobin 31.9 pg (28.0-32.0); Mean Corpuscular Hgb Conc. 34.1 g/dL (32.0-36.0); Mean Corpuscular Volume 93.6 fL (80.0-100.0); Monocytes # (auto) 0.4 10 ^3/uL (0-1.3); Monocytes % (auto) 8.5 % (0.0-12.0); Neutrophils # (auto) 3.2 10 ^3/uL (1.6-8.6); Neutrophils % (auto) 64.1 % (37.0-80.0); Nucleated Red Blood Cells % 0.1 %; Platelet Count (auto) 219 10^3/uL (140-450); Red Blood Cells 4.15 10^6/uL (4.0-5.20); Red Cell Distribution Width 16.3 % (11.8-14.3)
[2025-03-11 13:58] LABS: INR 1.05 (0.9-1.15); Partial Thromboplastin Time 25.5 SEC (24.5-34.5); Prothrombin Time 11.1 sec (9.3-11.8)
[2025-03-11 14:07] LABS: Urine Bacteria FEW /hpf (None Seen); Urine Blood Negative /uL (Negative); Urine Clarity Turbid (Clear); Urine Color Yellow (Yellow); Urine Protein, UAD TRACE (Negative); Urine Specific Gravity 1.019 (1.001-1.035); Urine Squamous Epithelial Cell FEW /hpf (<5); Urine Urobilinogen Normal (Negative); Urine WBC 6 /HPF (0-5); Urine pH 6.5 (5.0-9.0)
[2025-03-11 14:08] LABS: Alanine Aminotransferase 15 U/L (7-40); Albumin 4.5 g/dL (3.2-4.8); Alkaline Phosphatase 104 U/L (46-116); Anion Gap 8 (5-15); Aspartate Aminotransferase 23 U/L (13-40); BUN/Creatinine Ratio 22.8 (10.0-20.0); Blood Urea Nitrogen 18 mg/dL (9-23); Calcium 9.9 mg/dL (8.7-10.4); Carbon Dioxide 27 mmol/L (20-31); Chloride 103 mmol/L (98-107); Glucose 89 mg/dL (74-106); Potassium 4.8 mmol/L (3.5-5.1); Sodium 138 mmol/L (136-145); Total Protein 8.1 g/dL (5.7-8.2)
[2025-03-11 14:09] LABS: Bilirubin, Total 0.6 mg/dL (0.2-1.0)
[~2025-03-13] VITALS: Ht 157.5 cm; Wt 58.1 kg
[~2025-03-13 06:13] MED LIST changes: -AMIO200T13 PO; -AMIO200T33 PO; -APIX2.5T PO; -BENA10TA90 PO; -BISA10SU5 RE; -DOCU-94 PO; -ERGO500086 PO; -HYDR-4902 PO; -IVAB1.7T PO; -LORA-1121 PO; -MAGNSUS48 PO; -MULTTAB75 PO; -NALO4SPR3; -NITR0.4S29 SL; -RIME75TA PO
[2025-03-13] MEDS ORDERED: MIDAZOLAM HCL 2MG/2ML 2ml VIAL (1mg/ml) ONE (07:29)
[2025-03-13] MEDS ORDERED: fentaNYL CITRATE 100 MCG/2 ML VL ONE (07:29)
[2025-03-13] MEDS: ceFAZolin 2 GM/D5W50ml 50 ML IV ONE (07:33)
[2025-03-13] MEDS ORDERED: DexAMETHasone SOD PHOS 10MG/1ML VIAL INJ ONE (07:40)
[2025-03-13] MEDS: BACITRACIN TOP OINT 1 UD PKG TOP ONE (08:08)
[2025-03-13] MEDS: ceFAZolin 1GM VL ONE (08:08)
[2025-03-13] MEDS: ROPIVACAINE 0.5% (5MG/ML) 20ML AMPULE IJ ONE ×2 (08:09)
[2025-03-13 08:15] VITALS: TEMP 97; O2SAT 100
--- NOTE | 2025-03-13 08:29 | DVHOP2 ---
Operative Report - 2 Report Details Date: 03/13/25 Preop Diagnosis: Painful subungual exostoses bilateral great toes Painful chronic recurrent onychia and paronychia and with severe onychogryphosis bilateral great toenails Postop Diagnosis: Same Surgeon: Jewell Gan, DPM, MHA, MS, DABMSP Strike Warfare/Missile Systems Officer: None Anesthesiologist: Dr. Chuck MD Anesthesia: Mac Consent: The patient was informed of the risks and benefits of the procedure. These include but are not limited to complications of anesthesia, postoperative infection, incomplete relief of symptoms, recurrence of symptoms, damage to blood vessels, nerves and tendons, deep venous thrombosis, pulmonary embolism and possible need for repeat surgery in the future. Complications: None Estimated Blood Loss: Less than 1 cc Name of Procedure Performed Subungual exostectomy bilateral great toes Total sharp matrixectomy bilateral great toes Procedure Details Procedure Details: The patient was brought to the operating room placed on the operating table in the supine position. After MAC anesthesia was achieved to bilateral feet and legs were prepped and draped in the proper aseptic manner. [place] tourniquet was applied over each of the great toes one at a time and held in place with hemostats. A proximally 11 cc of 0.5% ropivacaine plain was injected in H block fashion to each of the bilateral great toes. This was done without incident. Attention was now directed to procedure 1. Procedure 1. Subungual exostectomy bilateral great toes: A small [place] incision was placed at the distal end of the bilateral great toes incision was carried deep by means of sharp and blunt dissection with care being taken to preserve all underlying vital structures, all bleeders were bovied or ligated as necessary. Utilizing a bone rongeur, the subungual exostoses was identified and resected and sent to pathology as a specimen. Utilizing a power rasp areas were rasped smooth no rough edges had remained area was flushed with copious amounts of Ancef irrigant was aspirated no debris was noted. At this time attention was directed to procedure 2. Procedure 2. Total sharp matrixectomy bilateral great toes: Utilizing a number 64 blade two small incision with the base of the proximal eponychium medially and laterally to bilateral great toes. The incision was carried deep by means of sharp and blunt dissection with care being taken to preserve all underlying vital structures. All bleeders were bovied or ligated as necessary. The proximal eponychium was reflected proximally reflecting the white glistening matrix which was dissected utilizing a number 64 blade and discarded. This was done to bilateral great toes without incident. A curette was used to curette the area for any nonvisible matrix to bilateral great toes this was also done without incident. Ancef irrigant was used was aspirated no debris was noted. All incisions were reanastomosed with 4-0 nylon suture without incident. Surgical dressings consisted of bacitracin ointment Xeroform 4-0 4x4s, Kerlix, and Coban to yield a mildly compressive type bandage. [place] tourniquets were released and immediate normal reactive hyperemia returned to bilateral great toes without incident. There were no intraoperative complications the patient left the operating recovery room in stable condition. The patient was prophylaxed with 2 g of IV Ancef prior to surgery. Patient advised to remain in the postop shoe at all times when ambulating. Patient advised to keep the dressings clean and dry and intact. Patient has postoperative medications at home to manage postoperative pain as needed. Patient has postoperative follow up visit my office as well at home. Specimen: Bone Disposition Home JEWELL GAN DPM March 13, 2025 08:29
[2025-03-13 08:54] VITALS: BP 115/58; PULSE 75; RESP 18; O2SAT 97
== END 2025-03-13 09:01 | disposition home or self-care (01) ==
LOC: SUR 06:13
PROVIDERS: ATTEND Podiatrist Foot & Ankle Surgery
DX: L03.031 Cellulitis of right toe (principal); L03.032 Cellulitis of left toe; L60.2 Onychogryphosis; M89.9 Disorder of bone, unspecified; M25.774 Osteophyte, right foot; M25.775 Osteophyte, left foot; I25.2 Old myocardial infarction; I10 Essential (primary) hypertension; I25.10 Atherosclerotic heart disease of native coronary artery without angina pectoris; I48.91 Unspecified atrial fibrillation; E03.9 Hypothyroidism, unspecified; Z79.890 Hormone replacement therapy; Z79.899 Other long term (current) drug therapy; Z95.810 Presence of automatic (implantable) cardiac defibrillator; Z98.890 Other specified postprocedural states
CPT/HCPCS: 11750; 28124; 36415; 80053; 81001; 85025; 85610; 85730; 88305; 88311; J0690; J1100; J2250; J2795; J3010; L3260

== ENCOUNTER → 2025-03-14 | Outpatient (CLI) | payer MEDICARE, MEDICAID ==
[2025-03-14 12:00] LABS: Anion Gap 10 (5-15); Calcium 9.8 mg/dL (8.7-10.4); Carbon Dioxide 24 mmol/L (20-31); Chloride 103 mmol/L (98-107); Potassium 4.4 mmol/L (3.5-5.1); Sodium 137 mmol/L (136-145)
[2025-03-14 12:06] LABS: BUN/Creatinine Ratio 27.6 (10.0-20.0)
[2025-03-14 12:07] LABS: Blood Urea Nitrogen 24 mg/dL (9-23); Glucose 123 mg/dL (74-106)
== END | disposition home or self-care (01) ==
LOC: LAB 11:24
PROVIDERS: ATTEND Internal Medicine
DX: I50.20 Unspecified systolic (congestive) heart failure (principal); R73.03 Prediabetes
CPT/HCPCS: 36415; 80048

== ENCOUNTER 2025-04-05 08:03 | Inpatient (IN) | payer MEDICARE, MEDICAID ==
[2025-04-05] VITALS (11 sets, daily range): BP systolic 109–121; BP diastolic 60–76; PULSE 73–85; RESP 16–24; TEMP 97.1–97.6; O2SAT 95–100
[~2025-04-05] VITALS: Ht 157.5 cm; Wt 64.8 kg
--- NOTE | 2025-04-05 09:48 | ED.PDOC ---
SOB-HPI HPI Comments 84-year-old female with a past medical history of congestive heart failure presents to the emergency department for chief complaint of shortness of breath. Patient states she has been experiencing shortness of breath was associated symptoms of left lower extremity swelling and cough x2 weeks. Patient states normally she is able to get through to across the parking lot but unable to get to the door now. Denies any recent fever chills. She does have a significant cardiac history was previously on the transplant list but unable to obtain a cardiac transplant. Chief Complaint: Shortness of Breath Time Seen by MD: 08:34 Primary Care Provider: maya Mode of Arrival: Wheelchair Past Medical History PAST MEDICAL HISTORY: Anxiety, CHF, CVA, HTN, SD, Thyroid Surgical History: Pacemaker NUTRITION SPECIALIST History: No Pertinent NUTRITION SPECIALIST History Family History Family History: Family hx of Cancer Social History Smoker: Non-Smoker Alcohol: Denies ETOH Use Drugs: Denies Drug Use Lives In: Home Physical Exam General Appearance: No Apparent Distress, Normal HEENT: Normal ENT Inspection, Pharynx Normal, TMs Normal Neck: Full Range of Motion, Non-Tender, Normal, Normal Inspection Respiratory: Chest Non-Tender, Lungs Clear, No Accessory Muscle Use, No Respiratory Distress, Normal Breath Sounds Cardiovascular: No Edema, No JVD, No Murmur, No Gallop, Normal Peripheral Pulses, Regular Rate/Rhythm Breast Exam: Deferred Gastrointestinal: No Organomegaly, Non Tender, No Pulsatile Mass, Normal Bowel Sounds, Soft Genitalia: Deferred Pelvic: Deferred Rectal: Deferred Extremities: No calf tenderness, Normal capillary refill, Normal inspection, Normal range of motion, Non-tender, Pedal edema (2+ to the right, no edema to the left) Musculoskeletal : Apperance: Normal Neurologic: Alert, production stage manager II-XII nml as 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 Was a procedure done?: No Differential Dx Differential Diagnosis: Anxiety, Asthma, CHF, Myocardial infarction, Pulmonary Embolism X-Ray, Labs, Meds, VS Vital Signs Date Time Temp Pulse Resp B/P (MAP) Pulse Ox O2 Delivery O2 Flow Rate FiO2 04/05/25 10:14 77 16 98 Room Air 04/05/25 10:14 97.5 77 16 114/73 (87) 98 97.5 04/05/25 08:32 97.3 78 16 102/64 (77) 96 97.3 Lab Test 04/05/25 10:09 Range/Units D-Dimer, Quantitative 1.81 H 0.0-0.49 mg/L FEU Sodium Level 141 136-145 mmol/L Potassium Level 4.8 3.5-5.1 mmol/L Chloride Level 107 98-107 mmol/L Carbon Dioxide Level 26 20-31 mmol/L Anion Gap 8 5-15 Blood Urea Nitrogen 13 9-23 mg/dL Creatinine 0.68 0.550-1.02 mg/dL Glomerular Filtration Rate Calc 97 >90 mL/min BUN/Creatinine Ratio 19.1 10.0-20.0 Serum Glucose 86 74-106 mg/dL Calcium Level 8.8 8.7-10.4 mg/dL Total Bilirubin 0.5 0.2-1.0 mg/dL Aspartate Amino Transferase (AST) 21 13-40 U/L Alanine Aminotransferase (ALT) 14 7-40 U/L Alkaline Phosphatase 98 46-116 U/L Troponin I High Sensitivity 140 *H </=34 ng/L B-Type Natriuretic Peptide 2347.31 0-100 pg/mL Total Protein 7.2 5.7-8.2 g/dL Albumin 4.1 3.2-4.8 g/dL [place] [id number] Ph: [phone] DIAGNOSTIC IMAGING Diagnostic Imaging Report : [id number] Signed PATIENT: ELEAZAR DICKENS THERESAACCT: [id number] UNIT: [id number] : 1960 LOC: ER ROOM / BED: / AGE / SEX: 64 / F ADM STATUS: REG ER SERVICE [id number] ORDERING PHYSICIAN: TIGIST DONOVAN MD PROCEDURE(s): CXRP - CHEST PORTABLE REASON: SOB ORDER NUMBER(s): [id number], ACCESSION NUMBER(s): [id number] INDICATION: SOB TECHNIQUE: Single frontal view of the chest was obtained COMPARISON: XY CHEST PORTABLE on DOS: 12/04/24, XY CHEST PORTABLE on DOS: 09/19/24, XY CHEST PORTABLE on DOS: 08/31/24, XY CHEST PORTABLE on DOS: 08/02/24, XY CHEST PORTABLE on DOS: 08/02/24, XY CHEST PORTABLE on DOS: 12/04/24 FINDINGS: Lines and Tubes: Left chest wall pacemaker / AICD. Lungs: Congestion Pleura: No effusion. No pneumothorax. Cardiomediastinal contours: Cardiomegaly Bones: Unremarkable IMPRESSION: Cardiomegaly. Congestion. ATED BY: MIKIE TOMAS MD DICTATED DATE/TIME: 04/05/25 1026 SIGNED BY: MIKIE TOMAS MD SIGNED DATE/TIME: 04/05/25 1026 CC: 64-year-old female with a known significant cardiac medical history presents here with shortness of breath. Denies any recent cough cold runny nose. Considered possible pneumonia I have low suspicion. She does have left lower extremity swelling considered possible DVT. Considered possible also PE. Chest x-ray however does demonstrate pulmonary congestion. Considered possible CHF exacerbation also. Blood work demonstrates mildly elevated troponins in the 120 range. EKG with no significant ST changes. BNP elevated at 2400. At this time given patient's acute shortness of breath, hospitalist team has been co ntacted for admission. Patient is stable while in the ER. Time of 1ST Reevaluation: 11:34 Reevaluation 1ST: Unchanged Patient Education/Counseling: Diagnosis, Treatment Family Education/Counseling: Diagnosis, Treatment Departure 1 Departure Time of Disposition: 11:30 Impression: Primary Impression: Exertional dyspnea Additional Impression: Acute exacerbation of congestive heart failure Qualified Codes: I50.9 - Heart failure, unspecified Disposition: 09 ADMITTED INPATIENT Condition: Serious Critical Care Note Critical Care Time?: No Stability Stability form required: No Heart Score Heart Score: Heart Score Response (Comments) Value History N/A 0 EKG N/A 0 Age N/A 0 Risk Factors N/A 0 Troponin N/A 0 Total 0 I personally scribed for TIGIST DONOVAN MD ([email or web address]) on 04/05/25 at 11:04. Electronically submitted by Anneliese Cedillo ([email or web address]). I personally scribed for TIGIST DONOVAN MD ([email or web address]) on 04/05/25 at 13:17. Electronically submitted by Anneliese Cedillo ([email or web address]). TIGIST DONOVAN MD Apr 05, 2025 09:48
--- NOTE | 2025-04-05 10:28 | DVH ---
INDICATION: SOB TECHNIQUE: Single frontal view of the chest was obtained COMPARISON: XY CHEST PORTABLE on DOS: 12/04/24, XY CHEST PORTABLE on DOS: 09/19/24, XY CHEST PORTABLE o n DOS: 08/31/24, XY CHEST PORTABLE on DOS: 08/02/24, XY CHEST PORTABLE on DOS: 08/02/24, XY CHEST PORTAB LE on DOS: 12/04/24 FINDINGS: Lines and Tubes: Left chest wall pacemaker / AICD. Lungs: Congestion Pleura: No effusion. No pneumothorax. Cardiomediastinal contours: Cardiomegaly Bones: Unremarkable IMPRESSION: Cardiomegaly. Congestion.
[2025-04-05 10:44] LABS: Anion Gap 8 (5-15)
[2025-04-05 10:45] LABS: Calcium 8.8 mg/dL (8.7-10.4); Carbon Dioxide 26 mmol/L (20-31); Chloride 107 mmol/L (98-107); Potassium 4.8 mmol/L (3.5-5.1); Sodium 141 mmol/L (136-145)
[2025-04-05] MEDS ORDERED: ONDANSETRON HCL 4 MG/2 ML VIAL IV PRN (10:45)
[2025-04-05] MEDS ORDERED: ACETAMINOPHEN 325 MG TAB PO PRN (10:45)
[2025-04-05] MEDS ORDERED: NITROGLYCERIN 0.4 MG SL TAB SL PRN (10:45)
[2025-04-05 10:46] LABS: Alanine Aminotransferase 14 U/L (7-40); Albumin 4.1 g/dL (3.2-4.8); Alkaline Phosphatase 98 U/L (46-116); Aspartate Aminotransferase 21 U/L (13-40); BUN/Creatinine Ratio 19.1 (10.0-20.0); Blood Urea Nitrogen 13 mg/dL (9-23); Glucose 86 mg/dL (74-106); Total Protein 7.2 g/dL (5.7-8.2)
[2025-04-05 10:47] LABS: Bilirubin, Total 0.5 mg/dL (0.2-1.0)
[2025-04-05 11:03] LABS: Basophils # (auto) 0 10 ^3/uL (0-0.2); Basophils % (auto) 0.9 % (0.0-2.0); Eosinophils # (auto) 0.2 10 ^3/uL (0-0.8); Eosinophils % (auto) 5.4 % (0.0-7.0); Hematocrit 36.1 % (36.0-46.0); Hemoglobin 12.3 g/dL (12.2-16.2); Lymphocytes # (auto) 0.7 10 ^3/uL (0.4-5.4); Lymphocytes % (auto) 16.9 % (10.0-50.0); Mean Corpuscular Hemoglobin 32.8 pg (28.0-32.0); Mean Corpuscular Volume 96.2 fL (80.0-100.0); Monocytes # (auto) 0.4 10 ^3/uL (0-1.3); Monocytes % (auto) 8.8 % (0.0-12.0); Neutrophils # (auto) 2.9 10 ^3/uL (1.6-8.6); Nucleated Red Blood Cells % 0.1 %; Platelet Count (auto) 194 10^3/uL (140-450); Red Blood Cells 3.75 10^6/uL (4.0-5.20); Red Cell Distribution Width 17.6 % (11.8-14.3); White Blood Cell 4.3 10^3/uL (4.4-10.8)
[2025-04-05] MEDS ORDERED: AMIO200T13 PO (11:06)
[2025-04-05] MEDS ORDERED: MORPHINE SULFATE 4 MG/ML SYR/VIAL IV PRN (11:15)
--- NOTE | 2025-04-05 11:25 | DVHHP2 ---
History of Present Illness Reason for Visit: SOB History of Present Illness Belle Garcia is a 64-year-old female with past medical history of hypertension, hypothyroidism, anxiety, UT, CHF, pacemaker, subungual exostectomy bilateral great toes, total sharp matrixectomy bilateral great toes and J-tube removal who presents to the ED with shortness of breath and left lower extremity swelling with a cough x2 weeks. Patient endorses that her productive cough has been clear. Patient's Sean at the chair side. Patient reports that she was hospitalized at [facility] for 7 months getting a workup for a heart transplant. She was then discharged to [facility] and then for the last 2 months she has been home. She endorses that she has been walking now but minimal striated that she gets short of breath with minimal exertion. She also reports that she had surgery on her bilateral great toes 2 weeks ago. She endorses that her development representative is Dr. Patterson. Patient denies any chest pain, fever, chills, lightheadedness, weakness, dizziness, recent trauma or injury, recent sick contacts, recent ingestion of spoiled food, or urinary symptoms. Patient did state that she had gone to [place] recently. Cardiovascular: CHF, HTN, UT Psych: Anxiety Endocrine: Hypothyroidism Past Surgical History: Other (Pacemaker, J-tube removal, subungual exostectomy bilateral great toes, and total sharp matrixectomy bilateral great toes) Family History: Other (Both ) Smoke: No ALCOHOL: occassional Drugs: None Lives: with Family Domestic Violence: Neg Review of Systems Respiratory: Shortness of breath, Wheezing Allergies: Coded Allergies: NO KNOWN ALLERGIES (Unverified , 05/19/21) Medications Current Medications Medications Dose Ordered Sig/Tucker Route Start Time Stop Time Status Last Admin Dose Admin Ondansetron HCl 4 mg Q4HP PRN IV 04/05/25 10:45 UNV Acetaminophen 650 mg Q6HP PRN PO 04/05/25 10:45 UNV Nitroglycerin 0.4 mg Q5MINP PRN SL 04/05/25 10:45 UNV Morphine Sulfate 2 mg Q30M PRN IV 04/05/25 10:45 UNV Exam Vital Signs Vital Signs Date Time Temp Pulse Resp B/P (MAP) Pulse Ox O2 Delivery O2 Flow Rate FiO2 04/05/25 10:14 77 16 98 Room Air 04/05/25 10:14 97.5 114/73 (87) 97.5 General Appearance: Alert, Oriented X3, Cooperative, mild distress HEENT: Atraumatic, PERRLA, EOMI, Mucous membr. moist/pink Respiratory: Normal air movement Cardiovascular: Normal S1, Normal S2 Abdominal: Normal bowel sounds, Soft Extremities: No cyanosis Neuro: Normal speech, Strength at 5/5 X4 ext, Normal tone, Sensation intact Psych/Mental Status: Mental status NL, Mood NL Labs/Xrays Labs Test 04/05/25 10:47 04/05/25 10:09 Range/Units White Blood Count 4.3 L 4.4-10.8 10^3/uL Red Blood Count 3.75 L 4.0-5.20 10^6/uL Hemoglobin 12.3 12.2-16.2 g/dL Hematocrit 36.1 36.0-46.0 % Mean Corpuscular Volume 96.2 80.0-100.0 fL Mean Corpuscular Hemoglobin 32.8 H 28.0-32.0 pg Mean Corpuscular Hemoglobin Concent 34.0 32.0-36.0 g/dL Red Cell Distribution Width 17.6 H 11.8-14.3 % Platelet Count 194 140-450 10^3/uL Mean Platelet Volume 9.3 6.9-10.8 fL Neutrophils (%) (Auto) 68.0 37.0-80.0 % Lymphocytes (%) (Auto) 16.9 10.0-50.0 % Monocytes (%) (Auto) 8.8 0.0-12.0 % Eosinophils (%) (Auto) 5.4 0.0-7.0 % Basophils (%) (Auto) 0.9 0.0-2.0 % Neutrophils # (Auto) 2.9 1.6-8.6 10 ^3/uL Lymphocytes # (Auto) 0.7 0.4-5.4 10 ^3/uL Monocytes # (Auto) 0.4 0-1.3 10 ^3/uL Eosinophils # (Auto) 0.2 0-0.8 10 ^3/uL Basophils # (Auto) 0 0-0.2 10 ^3/uL Nucleated Red Blood Cells 0.1 % Sodium Level 141 136-145 mmol/L Potassium Level 4.8 3.5-5.1 mmol/L Chloride Level 107 98-107 mmol/L Carbon Dioxide Level 26 20-31 mmol/L Anion Gap 8 5-15 Blood Urea Nitrogen 13 9-23 mg/dL Creatinine 0.68 0.550-1.02 mg/dL Glomerular Filtration Rate Calc 97 >90 mL/min BUN/Creatinine Ratio 19.1 10.0-20.0 Serum Glucose 86 74-106 mg/dL Calcium Level 8.8 8.7-10.4 mg/dL Total Bilirubin 0.5 0.2-1.0 mg/dL Aspartate Amino Transferase (AST) 21 13-40 U/L Alanine Aminotransferase (ALT) 14 7-40 U/L Alkaline Phosphatase 98 46-116 U/L B-Type Natriuretic Peptide 2347.31 0-100 pg/mL Total Protein 7.2 5.7-8.2 g/dL Albumin 4.1 3.2-4.8 g/dL INDICATION: SOB TECHNIQUE: Single frontal view of the chest was obtained COMPARISON: XY CHEST PORTABLE on DOS: 12/04/24, XY CHEST PORTABLE on DOS: , XY CHEST PORTABLE on DOS: 08/31/24, XY CHEST PORTABLE on DOS: 08/02/24, XY CHEST PORTABLE on DOS: 08/02/24, XY CHEST PORTABLE on DOS: 12/04/24 FINDINGS: Lines and Tubes: Left chest wall pacemaker / AICD. Lungs: Congestion Pleura: No effusion. No pneumothorax. Cardiomediastinal contours: Cardiomegaly Bones: Unremarkable IMPRESSION: Cardiomegaly. Assessment/Plan Assessment/Plan Assessment Acute on chronic CHF exacerbation with left lower extremity swelling, NYHA class III HFrEF <25% Cardiomegaly Congestion with probable pneumonia Pacemaker Elevated D-dimer rule out PE Elevated troponins History of hypertension History of hypothyroidism History of anxiety History of [place] History of subungual exostectomy bilaterally toes History of total sharp matrixectomy bilateral great toes Plan Admit to tele EKG UA Chest x-ray noted BNP CBC ordered Ultrasound venous bilateral lower extremity ordered D-dimer ordered Troponins ordered Duo nebs Diuretics Diet Strict I&Os Daily weights CTA chest Last echo on 12/31/2024 EF <25% IV antibiotics-ceftriaxone empirical coverage Home medications reconciled DVT prophylaxis-Lovenox PUD prophylaxis-not indicated no history of GERD or GI bleed Discussed plan of care with patient, patient's spouse, and nurse Cardiology consult If CTA chest comes back negative for a PE please discontinue therapeutic Lovenox and start patient on prophylaxis Lovenox Plan discussed with: Patient, Spouse My Orders Orders - BRYON AHMADI Procedure Category Date Status Time D-Dimer LAB 04/05/25 Logged 10:36 Admit ADMIT 04/05/25 Transmitted 10:36 Allergies ANGLE 04/05/25 In Process 10:36 Code Status CODE 04/05/25 Transmitted 10:36 Ondansetron Hcl PHA 04/05/25 Logged (Zofran) 10:45 Complete Blood Count LAB 04/06/25 Verified 04:00 Comprehensive LAB 04/06/25 Verified Metabolic Panel 04:00 Cardiac DIET 04/05/25 Transmitted Diet-2gna,Lofat,Lochol Lunch Acetaminophen Tablet PHA 04/05/25 Logged (Tylenol Tablet) 10:45 Sequential ANGLE 04/05/25 In Process Compression Device Nitroglycerin PHA 04/05/25 Logged Sublingual (Ntrostat 10:45 Morphine Sulfate PHA 04/05/25 Logged Injection 10:45 Stat Ekg For Chest [facility] 04/05/25 In Process Pain 10:36 Notify Md Of Changes [facility] 04/05/25 In Process From Base 10:36 Fire Medic For [facility] 04/05/25 In Process 24 Hours 10:36 Emergency Dysrhythmia [facility] 04/05/25 In Process Protocol 10:36 Rhythm Strips Once [facility] 04/05/25 In Process Every Shift 10:36 Oxygen By Nasal RT 04/05/25 Transmitted Cannula 10:36 Troponin-I Hs LAB 04/05/25 Logged 10:36 Troponin-I Hs LAB 04/05/25 Logged 11:36 Troponin-I Hs LAB 04/05/25 Logged 13:36 Bilat Lower Dvt US 04/05/25 Logged 10:36 Levothyroxine Tablet PHA 04/06/25 Verified (Synthroid Tablet) 10:00 Multiple Vitamin PHA 04/06/25 Verified Tablet (Mvi Tab) 10:00 (Nf) Aspirin (Aspirin PHA 04/06/25 Verified Low Dose) 10:00 Date of Service: Apr 05, 2025 Billing Provider: BRYON AHMADI Common Visit Codes: [id number] INP/OBS CARE (HIGH) BRYON AHMADI [facility] Apr 05, 2025 11:25
[2025-04-05] MEDS ORDERED: ENOXAPARIN SOD 40 MG/0.4 ML SYRINGE SC SCH (12:00)
[2025-04-05] MEDS: IOHEXOL 350 MG/ML 100ML IJ ONE (12:07)
[2025-04-05] MEDS: ENOXAPARIN SOD 60 MG/0.6 ML SYRINGE SC SCH (12:36)
--- NOTE | 2025-04-05 12:36 | DVH ---
Bilateral lower extremity venous duplex Clinical History: r/o dvt; edema Comparison: US BILAT LOWER DVT on DOS: 08/31/24 Findings: Duplex Doppler evaluation of the deep venous systems of both lower extremities from the common femora l veins to the popliteal veins including color Doppler and spectral/pulsed waveform analysis was perf ormed. RIGHT SIDE: The common femoral vein demonstrates appropriate compressibility and waveform variability. There is compressibility/patency of the great saphenous vein at the proximal thigh. The femoral vein demonstrates appropriate compressibility and waveform variability. The deep femoral vein demonstrates appropriate compressibility and waveform variability. The popliteal vein demonstrates appropriate compressibility and waveform variability. There is normal compressibility at the tibioperoneal trunk. LEFT SIDE: The common femoral vein demonstrates appropriate compressibility and waveform variability. There is compressibility/patency of the great saphenous vein at the proximal thigh. The femoral vein demonstrates appropriate compressibility and waveform variability. The deep femoral vein demonstrates appropriate compressibility and waveform variability. The popliteal vein demonstrates appropriate compressibility and waveform variability. There is normal compressibility at the tibioperoneal trunk. IMPRESSION: No right or left femoropopliteal venous thrombosis. If clinical concern/symptoms persist or worsen, short-interval follow-up study is suggested. END IMPRESSION:
[2025-04-05] MEDS: cefTRIAXone 1GM/50ML D5W 50 ML IV SCH (12:43)
[2025-04-05 13:25] LABS: Urine Bacteria None Seen /hpf (None Seen)
[2025-04-05 13:33] LABS: Urine Blood Negative /uL (Negative); Urine Clarity Clear (Clear); Urine Color Yellow (Yellow); Urine Protein, UAD TRACE (Negative); Urine Squamous Epithelial Cell FEW /hpf (<5); Urine Urobilinogen Normal (Negative); Urine WBC < 1 /HPF (0-5)
[2025-04-05 13:48] LABS: Urine Specific Gravity > 1.050 (1.001-1.035)
--- NOTE | 2025-04-05 13:51 | DVH ---
CTA Chest with intravenous contrast INDICATION: r/o pe COMPARISON: CT CT ANGIO CHEST CONTRAST on DOS: 02/09/24, CT ANGIO CHEST CONTRAST on DOS: 01/06/21 TECHNIQUE: Multidetector spiral CTA of the chest was performed of the chest with intravenous contrast . PULMONARY ANGIOGRAPHY PROTOCOL was utilized using a bolus-tracking technique centered on the main p ulmonary artery. Axial, coronal and sagittal multiplanar and MIP reformats were performed. CONTRAST: Type of contrast: Omni 350 Contrast injected: 70 ml Radiation dose : Chest: CTDI volume is 26.64 mGy. Dose-length product is 552.41 mGy*cm The dose indicators for CT are the volume computed Tomography (CT) dose Index (CTDIvol) and the dose Length product (DLP), and are measured in units of mGy and mGy-cm, respectively. These indicators are not patient dose, but values generated from the CT scanner acquisition factors. The report includes radiation exposure data for exposures received during this examination. Findings: Pulmonary artery: No pulmonary embolism Lower neck: Atrophic or absent thyroid. Lungs: Bibasilar atelectasis and consolidation right greater than left. Heart/Vascular Structures: Moderate to severe cardiomegaly. Lymph Nodes: Mediastinal and hilar lymphadenopathy. Pleura: Moderate bilateral pleural effusions right greater than left. Musculoskeletal: No acute osseous abnormality. Soft tissues: Normal. Upper abdomen: Moderate size sliding-type hiatal hernia. Right renal cyst. IMPRESSION: 1. No pulmonary embolism. 2. Moderate bilateral pleural effusions with associated bibasilar atelectasis and consolidation great er in the right lung. Moderate to severe cardiomegaly. Mediastinal and hilar lymphadenopathy. Clinic al correlation and continued follow-up is recommended. 3. Moderate size sliding-type hiatal hernia. HS:Y
[2025-04-05] MEDS: IPRATROPIUM BROM 0.5 MG/2.5ML INH SOL NEB SCH (13:58)
[2025-04-05] MEDS: ALBUTEROL SULF 2.5 MG/0.5ML(0.5%) NEB SOLN NEB SCH (13:58)
[2025-04-05] MEDS ORDERED: RIME75TA PO (15:16)
[2025-04-05] MEDS: FUROSEMIDE 40 MG/4 ML VIAL IV SCH (18:18)
[2025-04-05] MEDS: ATORVASTATIN 20 MG TAB PO SCH (21:19)
[2025-04-06] VITALS (19 sets, daily range): BP systolic 99–136; BP diastolic 66–109; PULSE 58–86; RESP 16–20; TEMP 96.1–98.5; O2SAT 92–100
[2025-04-06] MEDS: LEVOTHYROXINE SODIUM 112 MCG TAB PO SCH (06:09)
[2025-04-06 06:17] LABS: Basophils # (auto) 0.1 10 ^3/uL (0-0.2); Eosinophils # (auto) 0.2 10 ^3/uL (0-0.8); Eosinophils % (auto) 5.5 % (0.0-7.0); Hematocrit 36.1 % (36.0-46.0); Hemoglobin 12.2 g/dL (12.2-16.2); Lymphocytes # (auto) 0.8 10 ^3/uL (0.4-5.4); Lymphocytes % (auto) 20.9 % (10.0-50.0); Mean Corpuscular Hemoglobin 32.6 pg (28.0-32.0); Mean Corpuscular Hgb Conc. 33.9 g/dL (32.0-36.0); Mean Corpuscular Volume 96.1 fL (80.0-100.0); Monocytes # (auto) 0.5 10 ^3/uL (0-1.3); Monocytes % (auto) 11.9 % (0.0-12.0); Neutrophils # (auto) 2.3 10 ^3/uL (1.6-8.6); Neutrophils % (auto) 59.7 % (37.0-80.0); Nucleated Red Blood Cells % 0.2 %; Platelet Count (auto) 197 10^3/uL (140-450); Red Blood Cells 3.76 10^6/uL (4.0-5.20); Red Cell Distribution Width 17.6 % (11.8-14.3); White Blood Cell 3.9 10^3/uL (4.4-10.8)
[2025-04-06 06:34] LABS: Alanine Aminotransferase 14 U/L (7-40); Albumin 3.8 g/dL (3.2-4.8); Alkaline Phosphatase 95 U/L (46-116); Anion Gap 8 (5-15); Aspartate Aminotransferase 19 U/L (13-40); BUN/Creatinine Ratio 20.3 (10.0-20.0); Blood Urea Nitrogen 16 mg/dL (9-23); Calcium 9.5 mg/dL (8.7-10.4); Carbon Dioxide 27 mmol/L (20-31); Chloride 107 mmol/L (98-107); Glucose 82 mg/dL (74-106); Potassium 3.7 mmol/L (3.5-5.1); Sodium 142 mmol/L (136-145); Total Protein 6.8 g/dL (5.7-8.2)
[2025-04-06 06:35] LABS: Bilirubin, Total 0.8 mg/dL (0.2-1.0)
[2025-04-06] MEDS: MULTIPLE VITAMIN TAB PO SCH (09:38)
[2025-04-06] MEDS: SPIRONOLACTONE 25 MG TAB PO SCH (09:39)
[2025-04-06] MEDS: ASPirin 81 mg TAB PO SCH (09:39)
--- NOTE | 2025-04-06 14:30 | DVHPN2 ---
Reviewed: Care Plan, H&P, Labs, Medications, Previous Orders, Radiology Changes from previous H/P or p: No Changes Respiratory: Shortness of breath, Wheezing Objective Vitals Vital Signs Date Time Temp Pulse Resp B/P (MAP) Pulse Ox O2 Delivery O2 Flow Rate FiO2 04/06/25 14:03 76 18 100 04/06/25 13:57 Room Air* 0 21 04/06/25 13:00 96.1 112/66 (81) 96.1 Intake/Output Intake and Output 04/06/25 07:00 Intake Total 650 ml Balance 650 ml Intake Oral 600 ml IV Total 50 ml # Voids 3 Medications Current Medications Medications Dose Ordered Sig/Tucker Route Start Time Stop Time Status Last Admin Dose Admin Ondansetron HCl 4 mg Q4HP PRN IV 04/05/25 10:45 Acetaminophen 650 mg Q6HP PRN PO 04/05/25 10:45 Nitroglycerin 0.4 mg Q5MINP PRN SL 04/05/25 10:45 Morphine Sulfate 2 mg Q30M PRN IV 04/05/25 11:15 Levothyroxine Sodium 112 mcg QAM PO 04/06/25 07:00 04/06/25 06:09 112 MCG Multivitamins 1 tab DAILY PO 04/06/25 10:00 04/06/25 09:38 1 TAB Aspirin 81 mg DAILY PO 04/06/25 10:00 04/06/25 09:39 81 MG Albuterol 2.5 mg Q4HWA NEB 04/05/25 14:00 04/06/25 13:57 2.5 MG Ipratropium [place] 0.5 mg Q4HWA [facility] 04/05/25 14:00 04/06/25 13:57 0.5 MG Ceftriaxone Sodium 50 ml @ 100 mls/hr DAILY@09 IV 04/05/25 11:30 04/06/25 09:38 100 MLS/HR Furosemide 40 mg BIDD IV 04/05/25 18:00 04/06/25 06:09 40 MG Spironolactone 25 mg DAILY PO 04/06/25 10:00 04/06/25 09:39 25 MG Enoxaparin Sodium 60 mg Q12HR SC 04/05/25 12:00 04/06/25 09:46 60 MG Atorvastatin Calcium 40 mg HS PO 04/05/25 22:00 04/05/25 21:19 40 MG Laboratory Results Laboratory Tests 04/06/25 04:48 Chemistry Test 04/06/25 04:48 Albumin 3.8 g/dL (3.2-4.8) Calcium Level 9.5 mg/dL (8.7-10.4) Total Protein 6.8 g/dL (5.7-8.2) LFT Test 04/06/25 04:48 Alanine Aminotransferase (ALT) 14 U/L (7-40) Alkaline Phosphatase 95 U/L (46-116) Aspartate Amino Transferase (AST) 19 U/L (13-40) Total Bilirubin 0.8 mg/dL (0.2-1.0) Urinalysis Test 04/05/25 13:24 Urine Color Yellow (Yellow) Urine Clarity Clear (Clear) Urine pH 6.0 (5.0-9.0) Urine Specific [place] > 1.050 (1.001-1.035) Urine Protein Trace (Negative) H Urine Ketones Negative (Negative) Urine Blood Negative /uL (Negative) Urine Nitrite Negative (Negative) Urine Bilirubin Negative (Negative) Urine Urobilinogen Normal mg/dL (Negative) Urine Leukocyte Esterase Negative /uL (Negative) Urine RBC 2 /hpf (0 - 4) Urine Microscopic WBC < 1 /HPF (0-5) Urine Squamous Epithelial Cells Few /hpf (<5) Urine Bacteria None seen /hpf (None Seen) Urine Glucose Normal mg/dL (Normal) Microbiology Microbiology Date/Time Source Procedure Growth Status 04/05/25 18:30 Nose MRSA Screen - Final Complete Labs and/or images reviewed: Labs reviewed by me, Image(s) reviewed by me Assessment/Plan Assessment/Plan Acute on chronic CHF exacerbation with left lower extremity swelling, NYHA class III HFrEF <25% Cardiomegaly Congestion with probable pneumonia Pacemaker Elevated D-dimer DVT ruled out PE ruled out Elevated troponins History of hypertension History of hypothyroidism History of anxiety History of [place] Time spent 50 minutes Plan discussed with: Patient My Orders Orders - CALDERON DAVIS MD Procedure Category Date Status Time Apply: [facility] 04/06/25 In Process 11:22 Date of Service: Apr 06, 2025 Billing Provider: CALDERON DAVIS MD Common Visit Codes: [id number] INP/OBS CARE(HIGH) CALDERON DAVIS MD Apr 06, 2025 14:30
[2025-04-07] VITALS (16 sets, daily range): BP systolic 102–112; BP diastolic 67–84; PULSE 69–104; RESP 16–18; TEMP 97–98.1; O2SAT 94–100
[2025-04-07 05:39] LABS: Basophils # (auto) 0.1 10 ^3/uL (0-0.2); Basophils % (auto) 1.7 % (0.0-2.0); Eosinophils # (auto) 0.3 10 ^3/uL (0-0.8); Eosinophils % (auto) 7.9 % (0.0-7.0); Hematocrit 35.9 % (36.0-46.0); Hemoglobin 12.4 g/dL (12.2-16.2); Lymphocytes # (auto) 0.8 10 ^3/uL (0.4-5.4); Lymphocytes % (auto) 19.4 % (10.0-50.0); Mean Corpuscular Hemoglobin 32.7 pg (28.0-32.0); Mean Corpuscular Hgb Conc. 34.5 g/dL (32.0-36.0); Mean Corpuscular Volume 94.8 fL (80.0-100.0); Monocytes # (auto) 0.6 10 ^3/uL (0-1.3); Monocytes % (auto) 14.6 % (0.0-12.0); Neutrophils # (auto) 2.3 10 ^3/uL (1.6-8.6); Neutrophils % (auto) 56.4 % (37.0-80.0); Nucleated Red Blood Cells % 0.1 %; Platelet Count (auto) 204 10^3/uL (140-450); Red Blood Cells 3.79 10^6/uL (4.0-5.20); Red Cell Distribution Width 17.4 % (11.8-14.3)
[2025-04-07 05:47] LABS: Anion Gap 10 (5-15); Carbon Dioxide 30 mmol/L (20-31); Chloride 104 mmol/L (98-107); Sodium 144 mmol/L (136-145)
[2025-04-07 05:48] LABS: Calcium 9.7 mg/dL (8.7-10.4)
[2025-04-07 05:53] LABS: BUN/Creatinine Ratio 19.4 (10.0-20.0); Blood Urea Nitrogen 18 mg/dL (9-23); Glucose 89 mg/dL (74-106)
--- NOTE | 2025-04-07 08:04 | DVHPN2 ---
Reviewed: Care Plan, H&P, Labs, Medications, Previous Orders, Radiology Changes from previous H/P or p: No Changes Respiratory: Shortness of breath, Wheezing Objective Vitals Vital Signs Date Time Temp Pulse Resp B/P (MAP) Pulse Ox O2 Delivery O2 Flow Rate FiO2 04/07/25 06:12 112/79 04/07/25 06:01 71 18 94 04/07/25 06:01 Room Air* 0 21 04/07/25 05:00 97.0 97.0 Intake/Output Intake and Output 04/07/25 07:00 Intake Total 730 ml Output Total 100 ml Balance 630 ml Intake Oral 680 ml IV Total 50 ml Output Urine Total 100 ml # Voids 7 Medications Current Medications Medications Dose Ordered Sig/Tucker Route Start Time Stop Time Status Last Admin Dose Admin Ondansetron HCl 4 mg Q4HP PRN IV 04/05/25 10:45 Acetaminophen 650 mg Q6HP PRN PO 04/05/25 10:45 Nitroglycerin 0.4 mg Q5MINP PRN SL 04/05/25 10:45 Morphine Sulfate 2 mg Q30M PRN IV 04/05/25 11:15 Levothyroxine Sodium 112 mcg QAM PO 04/06/25 07:00 04/07/25 06:11 112 MCG Multivitamins 1 tab DAILY PO 04/06/25 10:00 04/06/25 09:38 1 TAB Aspirin 81 mg DAILY PO 04/06/25 10:00 04/06/25 09:39 81 MG Albuterol 2.5 mg Q4HWA NEB 04/05/25 14:00 04/07/25 06:00 2.5 MG Ipratropium [place] 0.5 mg Q4HWA [facility] 04/05/25 14:00 04/07/25 06:00 0.5 MG Ceftriaxone Sodium 50 ml @ 100 mls/hr DAILY@09 IV 04/05/25 11:30 04/06/25 09:38 100 MLS/HR Furosemide 40 mg BIDD IV 04/05/25 18:00 04/07/25 06:12 40 MG Spironolactone 25 mg DAILY PO 04/06/25 10:00 04/06/25 09:39 25 MG Enoxaparin Sodium 60 mg Q12HR SC 04/05/25 12:00 04/06/25 21:13 60 MG Atorvastatin Calcium 40 mg HS PO 04/05/25 22:00 04/06/25 21:12 40 MG Laboratory Results Laboratory Tests 04/07/25 04:35 Chemistry Test 04/07/25 04:35 Calcium Level 9.7 mg/dL (8.7-10.4) Urinalysis Test 04/05/25 13:24 Urine Color Yellow (Yellow) Urine Clarity Clear (Clear) Urine pH 6.0 (5.0-9.0) Urine Specific [place] > 1.050 (1.001-1.035) Urine Protein Trace (Negative) H Urine Ketones Negative (Negative) Urine Blood Negative /uL (Negative) Urine Nitrite Negative (Negative) Urine Bilirubin Negative (Negative) Urine Urobilinogen Normal mg/dL (Negative) Urine Leukocyte Esterase Negative /uL (Negative) Urine RBC 2 /hpf (0 - 4) Urine Microscopic WBC < 1 /HPF (0-5) Urine Squamous Epithelial Cells Few /hpf (<5) Urine Bacteria None seen /hpf (None Seen) Urine Glucose Normal mg/dL (Normal) Microbiology Microbiology Date/Time Source Procedure Growth Status 04/05/25 18:30 Nose MRSA Screen - Final Complete Labs and/or images reviewed: Labs reviewed by me, Image(s) reviewed by me Assessment/Plan Assessment/Plan Acute on chronic CHF exacerbation with left lower extremity swelling, NYHA class III: Consult for patient's design engineering specialist Dr. Patterson HFrEF <25% Cardiomegaly Congestion secondary to CHF Status post Pacemaker Elevated D-dimer DVT ruled out PE ruled out Elevated troponin Hypertension Hypothyroidism Anxiety History of [place] Severe cardiomyopathy awaiting heart transplant at [facility] Continue current management Plan discussed with: Patient My Orders Orders - CALDERON DAVIS MD Procedure Category Date Status Time Apply: ANGLE 04/06/25 In Process 11:22 * Cardiology Consult CONS 04/07/25 Verified 07:58 Date of Service: Apr 07, 2025 Billing Provider: CALDERON DAVIS MD Common Visit Codes: [id number] INP/OBS CARE(HIGH) CALDERON DAVIS MD Apr 07, 2025 08:04
--- NOTE | 2025-04-07 16:29 | MEDREC ---
[facility] Intervention Section I [facility] Intervention: Review courses of therapy (PLEASE CONSIDER D/C ANTIBIOTIC IN ABSENCE OF BACTERIAL INFECTION) TINY CALABRESE PHARMACIST Apr 07, 2025 16:29
[2025-04-08] VITALS (13 sets, daily range): BP systolic 82–112; BP diastolic 54–77; PULSE 72–88; RESP 16–18; TEMP 97.6–97.9; O2SAT 95–100
--- NOTE | 2025-04-08 09:29 | DVHPN2 ---
Reviewed: Care Plan, H&P, Labs, Medications, Previous Orders, Radiology Changes from previous H/P or p: No Changes Respiratory: Shortness of breath, Wheezing Objective Vitals Vital Signs Date Time Temp Pulse Resp B/P (MAP) Pulse Ox O2 Delivery O2 Flow Rate FiO2 04/08/25 09:15 72 16 100 04/08/25 09:03 Room Air* 0 21 04/08/25 06:07 112/72 04/08/25 05:00 97.7 97.7 Intake/Output Intake and Output 04/08/25 07:00 Intake Total 1208 ml Output Total 1500 ml Balance -292 ml Intake Oral 1158 ml IV Total 50 ml Output Urine Total 1500 ml Medications Current Medications Medications Dose Ordered Sig/Tucker Route Start Time Stop Time Status Last Admin Dose Admin Ondansetron HCl 4 mg Q4HP PRN IV 04/05/25 10:45 Acetaminophen 650 mg Q6HP PRN PO 04/05/25 10:45 Nitroglycerin 0.4 mg Q5MINP PRN SL 04/05/25 10:45 Morphine Sulfate 2 mg Q30M PRN IV 04/05/25 11:15 Levothyroxine Sodium 112 mcg QAM PO 04/06/25 07:00 04/08/25 06:06 112 MCG Multivitamins 1 tab DAILY PO 04/06/25 10:00 04/08/25 09:21 1 TAB Aspirin 81 mg DAILY PO 04/06/25 10:00 04/08/25 09:21 81 MG Albuterol 2.5 mg Q4HWA NEB 04/05/25 14:00 04/08/25 09:03 2.5 MG Ipratropium [place] 0.5 mg Q4HWA NEB 04/05/25 14:00 04/08/25 09:03 0.5 MG Ceftriaxone Sodium 50 ml @ 100 mls/hr DAILY@09 IV 04/05/25 11:30 04/08/25 09:21 100 MLS/HR Furosemide 40 mg BIDD IV 04/05/25 18:00 04/08/25 06:07 40 MG Spironolactone 25 mg DAILY PO 04/06/25 10:00 04/08/25 09:21 25 MG Enoxaparin Sodium 60 mg Q12HR SC 04/05/25 12:00 04/08/25 09:21 60 MG Atorvastatin Calcium 40 mg HS PO 04/05/25 22:00 04/07/25 21:23 40 MG Laboratory Results Laboratory Tests 04/07/25 04:35 Urinalysis Test 04/05/25 13:24 Urine Color Yellow (Yellow) Urine Clarity Clear (Clear) Urine pH 6.0 (5.0-9.0) Urine Specific [place] > 1.050 (1.001-1.035) Urine Protein Trace (Negative) H Urine Ketones Negative (Negative) Urine Blood Negative /uL (Negative) Urine Nitrite Negative (Negative) Urine Bilirubin Negative (Negative) Urine Urobilinogen Normal mg/dL (Negative) Urine Leukocyte Esterase Negative /uL (Negative) Urine RBC 2 /hpf (0 - 4) Urine Microscopic WBC < 1 /HPF (0-5) Urine Squamous Epithelial Cells Few /hpf (<5) Urine Bacteria None seen /hpf (None Seen) Urine Glucose Normal mg/dL (Normal) Microbiology Microbiology Date/Time Source Procedure Growth Status 04/05/25 18:30 Nose MRSA Screen - Final Complete Labs and/or images reviewed: Labs reviewed by me, Image(s) reviewed by me Assessment/Plan Assessment/Plan Acute on chronic CHF exacerbation NYHA class III: Consult for patient's medical records custodian Dr. Patterson HFrEF <25% Cardiomegaly Congestion secondary to CHF Status post Pacemaker Left lower extremity swelling DVT ruled out Elevated D-dimer DVT ruled out PE ruled out Mildly Elevated troponin Hypertension Hypothyroidism Anxiety History of [place] Severe cardiomyopathy awaiting heart transplant at [facility] Continue current management Plan discussed with: Patient Date of Service: Apr 08, 2025 Billing Provider: CALDERON DAVIS MD Common Visit Codes: [id number] INP/OBS CARE(HIGH) CALDERON DAVIS MD Apr 08, 2025 09:29
--- NOTE | 2025-04-08 12:50 | DVHPN2 ---
Progress Note - Dictate Date Seen: Apr 07, 2025 Has the PT tested + for MRSA If YES, has PT been informed?: No Subjective PT WITH CHEST PAIN DILATED CM EF <20% [facility] RESULTS: * Left main, patent. * Left anterior descending artery was patent. * Circumflex was patent. * Right coronary artery was patent. * The patient with dilated cardiomyopathy with EF less than 20% with an LVEDP elevated at 22 mmHg. Left ventricular systolic pressure 110. vital signs Vital Sign Date Time Temp Pulse Resp B/P (MAP) Pulse Ox O2 Delivery O2 Flow Rate FiO2 04/08/25 09:15 72 16 100 04/08/25 09:03 Room Air* 0 21 04/08/25 09:00 97.9 102/58 (73) 97.9 Total Intake and Output 04/07/25 04/07/25 04/08/25 15:00 23:00 07:00 Intake Total 268 ml 340 ml 600 ml Output Total 1000 ml 500 ml Balance 268 ml -660 ml 100 ml medications Current Medications Medications Dose Ordered Sig/Tucker Route Start Time Stop Time Status Last Admin Dose Admin Ondansetron HCl 4 mg Q4HP PRN IV 04/05/25 10:45 Acetaminophen 650 mg Q6HP PRN PO 04/05/25 10:45 Nitroglycerin 0.4 mg Q5MINP PRN SL 04/05/25 10:45 Morphine Sulfate 2 mg Q30M PRN IV 04/05/25 11:15 Levothyroxine Sodium 112 mcg QAM PO 04/06/25 07:00 04/08/25 06:06 112 MCG Multivitamins 1 tab DAILY PO 04/06/25 10:00 04/08/25 09:21 1 TAB Aspirin 81 mg DAILY PO 04/06/25 10:00 04/08/25 09:21 81 MG Albuterol 2.5 mg Q4HWA NEB 04/05/25 14:00 04/08/25 09:03 2.5 MG Ipratropium [place] 0.5 mg Q4HWA NEB 04/05/25 14:00 04/08/25 09:03 0.5 MG Ceftriaxone Sodium 50 ml @ 100 mls/hr DAILY@09 IV 04/05/25 11:30 04/08/25 09:21 100 MLS/HR Furosemide 40 mg BIDD IV 04/05/25 18:00 04/08/25 06:07 40 MG Spironolactone 25 mg DAILY PO 04/06/25 10:00 04/08/25 09:21 25 MG Enoxaparin Sodium 60 mg Q12HR SC 04/05/25 12:00 04/08/25 09:21 60 MG Atorvastatin Calcium 40 mg HS PO 04/05/25 22:00 04/07/25 21:23 40 MG laboratory and microbiology Laboratory Tests 04/07/25 04:35 Test 04/07/25 04:35 Range/Units Serum Glucose 89 74-106 mg/dL Problem List CHEST PAIN DILATED CM EF <20% [facility] RESULTS: * Left main, patent. * Left anterior descending artery was patent. * Circumflex was patent. * Right coronary artery was patent. * The patient with dilated cardiomyopathy with EF less than 20% with an LVEDP elevated at 22 mmHg. Left ventricular systolic pressure 110. Assessment/Plan PT TROPONIN NEGATIVE [facility] LAST YEAR NEGATIVE MAY DC HOME Dietary Evaluation Review Comments: 1) Initiate Ensure High Protein qd 2) Encourage optimal PO intake 3) Follow-up with cardiology and pulmonology 4) Continue to monitor I&O, labs, and skin integrity Expected Outcomes/Goals: 1) appetite and labs to improve 2) wounds to improve 3) f/u in 3-5 days Plan discussed with: Patient Critical Care Time(min): 35 KALLIE GLASGOW MD Apr 08, 2025 12:50
--- NOTE | 2025-04-08 12:51 | DVHPN2 ---
Progress Note - Dictate Date Seen: Apr 08, 2025 Has the PT tested + for MRSA If YES, has PT been informed?: No Subjective PT WITH CHEST PAIN DILATED CM EF <20% [facility] RESULTS: * Left main, patent. * Left anterior descending artery was patent. * Circumflex was patent. * Right coronary artery was patent. * The patient with dilated cardiomyopathy with EF less than 20% with an LVEDP elevated at 22 mmHg. Left ventricular systolic pressure 110. vital signs Vital Sign Date Time Temp Pulse Resp B/P (MAP) Pulse Ox O2 Delivery O2 Flow Rate FiO2 04/08/25 09:15 72 16 100 04/08/25 09:03 Room Air* 0 21 04/08/25 09:00 97.9 102/58 (73) 97.9 Total Intake and Output 04/07/25 04/07/25 04/08/25 15:00 23:00 07:00 Intake Total 268 ml 340 ml 600 ml Output Total 1000 ml 500 ml Balance 268 ml -660 ml 100 ml medications Current Medications Medications Dose Ordered Sig/Tucker Route Start Time Stop Time Status Last Admin Dose Admin Ondansetron HCl 4 mg Q4HP PRN IV 04/05/25 10:45 Acetaminophen 650 mg Q6HP PRN PO 04/05/25 10:45 Nitroglycerin 0.4 mg Q5MINP PRN SL 04/05/25 10:45 Morphine Sulfate 2 mg Q30M PRN IV 04/05/25 11:15 Levothyroxine Sodium 112 mcg QAM PO 04/06/25 07:00 04/08/25 06:06 112 MCG Multivitamins 1 tab DAILY PO 04/06/25 10:00 04/08/25 09:21 1 TAB Aspirin 81 mg DAILY PO 04/06/25 10:00 04/08/25 09:21 81 MG Albuterol 2.5 mg Q4HWA NEB 04/05/25 14:00 04/08/25 09:03 2.5 MG Ipratropium [place] 0.5 mg Q4HWA NEB 04/05/25 14:00 04/08/25 09:03 0.5 MG Ceftriaxone Sodium 50 ml @ 100 mls/hr DAILY@09 IV 04/05/25 11:30 04/08/25 09:21 100 MLS/HR Furosemide 40 mg BIDD IV 04/05/25 18:00 04/08/25 06:07 40 MG Spironolactone 25 mg DAILY PO 04/06/25 10:00 04/08/25 09:21 25 MG Enoxaparin Sodium 60 mg Q12HR SC 04/05/25 12:00 04/08/25 09:21 60 MG Atorvastatin Calcium 40 mg HS PO 04/05/25 22:00 04/07/25 21:23 40 MG laboratory and microbiology Laboratory Tests 04/07/25 04:35 Test 04/07/25 04:35 Range/Units Serum Glucose 89 74-106 mg/dL Problem List CHEST PAIN DILATED CM EF <20% [facility] RESULTS: * Left main, patent. * Left anterior descending artery was patent. * Circumflex was patent. * Right coronary artery was patent. * The patient with dilated cardiomyopathy with EF less than 20% with an LVEDP elevated at 22 mmHg. Left ventricular systolic pressure 110. Assessment/Plan PT TROPONIN NEGATIVE C LAST YEAR NEGATIVE MAY DC HOME Dietary Evaluation Review Comments: 1) Initiate Ensure High Protein qd 2) Encourage optimal PO intake 3) Follow-up with cardiology and pulmonology 4) Continue to monitor I&O, labs, and skin integrity Expected Outcomes/Goals: 1) appetite and labs to improve 2) wounds to improve 3) f/u in 3-5 days Plan discussed with: Patient, Spouse KALLIE GLASGOW MD Apr 08, 2025 12:51
--- NOTE | 2025-04-08 14:17 | DVHDS2 ---
Discharge Summary Date of Admission Apr 05, 2025 at 10:36 Date of Discharge: Apr 08, 2025 Admitting Diagnosis Shortness of breath and swelling of the feet Wounds: None Labs/Diagnostic Data: Laboratory Results Test 04/07/25 04:35 04/06/25 04:48 04/05/25 16:49 04/05/25 13:24 White Blood Count 4.0 10^3/uL (4.4-10.8) Red Blood Count 3.79 10^6/uL (4.0-5.20) Hemoglobin 12.4 g/dL (12.2-16.2) Hematocrit 35.9 % (36.0-46.0) Mean Corpuscular Volume 94.8 fL (80.0-100.0) Mean Corpuscular Hemoglobin 32.7 pg (28.0-32.0) Mean Corpuscular Hemoglobin Concent 34.5 g/dL (32.0-36.0) Red Cell Distribution Width 17.4 % (11.8-14.3) Platelet Count 204 10^3/uL (140-450) Mean Platelet Volume 9.5 fL (6.9-10.8) Neutrophils (%) (Auto) 56.4 % (37.0-80.0) Lymphocytes (%) (Auto) 19.4 % (10.0-50.0) Monocytes (%) (Auto) 14.6 % (0.0-12.0) Eosinophils (%) (Auto) 7.9 % (0.0-7.0) Basophils (%) (Auto) 1.7 % (0.0-2.0) Neutrophils # (Auto) 2.3 10 ^3/uL (1.6-8.6) Lymphocytes # (Auto) 0.8 10 ^3/uL (0.4-5.4) Monocytes # (Auto) 0.6 10 ^3/uL (0-1.3) Eosinophils # (Auto) 0.3 10 ^3/uL (0-0.8) Basophils # (Auto) 0.1 10 ^3/uL (0-0.2) Nucleated Red Blood Cells 0.1 % Sodium Level 144 mmol/L (136-145) Potassium Level 4.0 mmol/L (3.5-5.1) Chloride Level 104 mmol/L (98-107) Carbon Dioxide Level 30 mmol/L (20-31) Anion Gap 10 (5-15) Blood Urea Nitrogen 18 mg/dL (9-23) Creatinine 0.93 mg/dL (0.550-1.02) Glomerular Filtration Rate Calc 69 mL/min (>90) BUN/Creatinine Ratio 19.4 (10.0-20.0) Serum Glucose 89 mg/dL (74-106) Calcium Level 9.7 mg/dL (8.7-10.4) Total Bilirubin 0.8 mg/dL (0.2-1.0) Aspartate Amino Transferase (AST) 19 U/L (13-40) Alanine Aminotransferase (ALT) 14 U/L (7-40) Alkaline Phosphatase 95 U/L (46-116) Total Protein 6.8 g/dL (5.7-8.2) Albumin 3.8 g/dL (3.2-4.8) Troponin I High Sensitivity 125 ng/L (</=34) Urine Color Yellow (Yellow) Urine Clarity Clear (Clear) Urine pH 6.0 (5.0-9.0) Urine Specific [place] > 1.050 (1.001-1.035) Urine Protein Trace (Negative) Urine Ketones Negative (Negative) Urine Blood Negative /uL (Negative) Urine Nitrite Negative (Negative) Urine Bilirubin Negative (Negative) Urine Urobilinogen Normal mg/dL (Negative) Urine Leukocyte Esterase Negative /uL (Negative) Urine RBC 2 /hpf (0 - 4) Urine Microscopic WBC < 1 /HPF (0-5) Urine Squamous Epithelial Cells Few /hpf (<5) Urine Bacteria None seen /hpf (None Seen) Urine Glucose Normal mg/dL (Normal) Test 04/05/25 10:09 D-Dimer, Quantitative 1.81 mg/L FEU (0.0-0.49) B-Type Natriuretic Peptide 2347.31 pg/mL (0-100) Other Laboratory Tests 04/07/25 04:35 Brief Hx & Hospital Course: T[age] year old female with a history of severe congestive heart failure cardiomyopathy ejection fraction less than 25 percent status post pacemaker hypotension hypothyroidism anxiety history of [place] awaiting cardiac transplant at [facility] came in complaining of shortness of breaths and swelling of the feet. Venous ultrasound negative for DVT. Treated per ACS protocol continue all home medications for CHF and other comorbid conditions. Seen by patient's primary hydroponics worker Dr Patterson patient has had a catheterization last year which was normal. Dr. Patterson cleared for discharge discharged home in stable condition she will continue all her home medications and follow up with Dr Patterson. Consults/Reason for consult Cardiology Dr. Patterson Operations or Procedures Venous ultrasound Condition at Discharge: Fair Final Diagnosis/Problems List Acute on chronic CHF exacerbation NYHA class III: Consult for patient's hydroponics worker Dr. Patterson HFrEF <25% Cardiomegaly Congestion secondary to CHF Status post Pacemaker Left lower extremity swelling DVT ruled out Elevated D-dimer DVT ruled out PE ruled out Mildly Elevated troponin Hypertension Hypothyroidism Anxiety History of [place] Severe cardiomyopathy awaiting heart transplant at [facility] Discharge Disposition: Home Discharge Instruct/Medications Diet: Cardiac 2g Na,low cholest Activity: Light activity Follow Up/Referral: resume all home meds f/u with dr patterson Medications: none 35 (Time taken For discharge summary 35 minutes) Discharge Statement: "Patient was advised to return to the ER or call 911 if any headaches, dizziness, shortness of breath, chest pain, abdominal pain, bleeding, fevers, or worsening of medical condition. Patient was counseled about treatment plan, medications, possible side effects, patientverbalized understanding. All questions were answered to the best of my ability. This discharge took greater then 30 minutes in planning, reviewing documentation, counseling the patient, and discussing with other team members." ASSESSMENT ASSESSMENT Hospital Course Improved marginally Assessment Acute on chronic CHF exacerbation NYHA class III: Consult for patient's hydroponics worker Dr. Patterson HFrEF <25% Cardiomegaly Congestion secondary to CHF Status post Pacemaker Left lower extremity swelling DVT ruled out Elevated D-dimer DVT ruled out PE ruled out Mildly Elevated troponin Hypertension Hypothyroidism Anxiety History of [place] Severe cardiomyopathy awaiting heart transplant at [facility] Date of Service: Apr 08, 2025 Billing Provider: CALDERON DAVIS MD Common Visit Codes: 43643-OGM/OBS DISCH DAY >30min CALDERON DAVIS MD Apr 08, 2025 14:16
== END 2025-04-08 17:07 | disposition home or self-care (01) | DRG 280 ==
LOC: ER 08:03 → OVERFLOW 10:36 → TELE-CENTR 14:51
PROVIDERS: ADMIT Family Medicine; ATTEND Family Medicine
DX: I11.0 Hypertensive heart disease with heart failure (principal); I50.23 Acute on chronic systolic (congestive) heart failure; I21.A1 Myocardial infarction type 2; I42.9 Cardiomyopathy, unspecified; I42.0 Dilated cardiomyopathy; E03.9 Hypothyroidism, unspecified; F41.9 Anxiety disorder, unspecified; Z76.82 Awaiting organ transplant status; I25.2 Old myocardial infarction; Z95.0 Presence of cardiac pacemaker; Z86.73 Personal history of transient ischemic attack (TIA), and cerebral infarction without residual deficits
CPT/HCPCS: 36415; 71045; 71275; 80048; 80053; 81001; 83880; 84484; 85025; 85379; 87081; 93970; 94640; 96365; 96375; G0378

== ENCOUNTER 2025-04-20 10:16 | Inpatient (IN) | payer MEDICARE, MEDICAID ==
[~2025-04-20] VITALS: Ht 160 cm; Wt 63.4 kg
[~2025-04-20 10:16] MED LIST changes: +AMIO200T13 PO; +RIME75TA PO
--- NOTE | 2025-04-20 10:36 | ED.PDOC ---
SOB-HPI HPI Comments 65 y/o F is BIBA for 3x day history of shortness of breath with nonproductive cough. Given 1x breathing treatment en route. Patient did not take her medications this morning Was here 2 weeks ago for similar complaints. No chest pain, wheezing, congestion, fever, or chills endorsed. Vitals on scene: SpO2 of 99% on 1LPM home O2, respiratory rate of 36, pulse of 81, blood pressure of 127/74, and a blood glucose of 92. Vitals on arrival: temperature of 96.8F, pulse of 86, respiratory rate of 33, blood pressure of 134/65, and a SpO2 of 92% PMHx: CHF, [place] 2011, AFib, CVA, HTN, and thyroid disease PSHx: Pacemaker, 2 thoracotomies Final Diagnosis/Problems List per previous [facility] hospital admission discharge summary on 04/07/25 Acute on chronic CHF exacerbation NYHA class III: Consult for patient's wreath machine operator Dr. Patterson HFrEF <25% Cardiomegaly Congestion secondary to CHF Status post Pacemaker Left lower extremity swelling DVT ruled out Elevated D-dimer DVT ruled out PE ruled out Mildly Elevated troponin Hypertension Hypothyroidism Anxiety History of [place] Severe cardiomyopathy awaiting heart transplant at [facility] HPI: Poor Historian. REVIEW OF SYSTEMS: CONSTITUTIONAL: Denies acute: fever, diaphoresis, chills, HEAD: Denies acute: headache, photophobia Eyes: Denies acute: Double vision, vision loss, eye pain, eye discharge. EARS: Denies acute: tinnitus, hearing loss, ear discharge, ear pain, THROAT: Denies acute: sore throat, swelling, difficulty swallowing , pain with swallowing, change in voice. NECK: Denies acute: neck pain, neck swelling, stiff neck. HEART: Denies acute : chest pain, palpitations, LUNGS: Denies acute: wheezing, cough, hemoptysis ABDOMEN: Denies acute: abdominal pain, Nausea, Vomiting, diarrhea, melena , hematemesis, hematochezia SKIN: Denies acute: rash, redness, lesions, itchiness. EXTREMITIES: Denies acute: calf pain, numbness, tingling, weakness, denies pain in extremity. Denies acute: Low back pain. Neuro: Denies acute: focal neurological deficit, motor or sensory focal neurological deficit, tremors, seizure like activity, confusion, dizziness, change in mental status, loss of bowel or bladder function, cauda equina like symptoms. : Denies acute: dysuria, hematuria, flank pain, increase in urinary frequency. PSYCH: Denies acute: hallucination, suicidal ideation, homicidal ideation. FEMALE: Denies acute: abnormal vaginal bleeding, foul odor, unusual discharge. PHYSICAL EXAM: General: ----moderate to severe----acute distress, awake and alert. Head: normocephalic, atraumatic. Neck: supple, trachea is midline, no swelling. Throat: Normal phonation. Eyes:, no erythema, no purulent discharge, no proptosis, no icterus. Heart: regular rate, regular rhythm, no significant murmur appreciated. Lungs: no apparent respiratory distress, Able to speak in full sentences. No wheezing, no rhonchi, no crackles. No stridors Clear to auscultation bilaterally. Abdomen: non tender to palpation, non distended, soft, no guarding, no rebound, + bowel sounds. Neuro: Awake, Alert, oriented to name, self, situation, follows commands GCS=15. Speech is normal. Skin: no petechia, no purpura, no cyanosis, non-pale, not jaundice. Lower extremities: --trace bilateral - Pitting edema no deformity, no focal swelling, no calf TTP. Makes eye contact. moves all four extremities. Face: no apparent facial droop. ED COURSE: DISCLAIMER: This medical document was created using an electronic medical record system with voice recognition software and computerized dictation system. Although this document has been carefully reviewed, there might still be some phonetic and typographical errors. Occasional wrong-word or "sound-alike" substitutions may have occurred due to the inherent limitations of voice recognition software. These areas are purely typographical due to imperfections of the software programs and do not reflect any compromise in the patient's medical care. Please read the chart carefully and recognize, using context, where these substitutions have occurred. Chief Complaint: Shortness of Breath Time Seen by MD: 10:30 Primary Care Provider: maya Reviewed notes: Nurses Notes, Tour Bus Driver Notes, Medications, Allergies Information Source: Patient, Emergency Med Personnel Mode of Arrival: EMS Past Medical History PAST MEDICAL HISTORY: Anxiety, CHF, CVA, HTN, [place], Thyroid Surgical History: Pacemaker REEL ASSEMBLER History: No Pertinent REEL ASSEMBLER History Family History Family History: Family hx of Cancer Social History Smoker: Non-Smoker Alcohol: Denies ETOH Use Drugs: Denies Drug Use Lives In: Home EKG EKG : Pulse Rate (adult): 85 [place]: Normal Cardiac Rhythm: Paced Block: None Hypertrophy: None ST: Normal Was a procedure done? Was a procedure done?: No Differential Dx Differential Diagnosis: Other (DDx include ACS, unstable angina, anxiety, PE, pneumothroax, neoplasm, cardiac ischemia, COPD, asthma, CHF, pleural effusion, tobacco abuse, pneumonia, hypoxia, hypercapnia, anemia., infection/sepsis., p ulmonary edema. Asthma, Cardiac tamponade, infection.) X-Ray, Labs, Meds, VS Vital Signs Date Time Temp Pulse Resp B/P (MAP) Pulse Ox O2 Delivery O2 Flow Rate FiO2 04/20/25 12:30 04/20/25 12:00 71 20 109/77 (88) 99 04/20/25 12:00 74 04/20/25 11:31 99 Bi-pap/CPAP 04/20/25 11:27 134/85 04/20/25 11:25 74 134/85 99 Facial BiPAP Mask 30 04/20/25 11:23 36 100 Nasal Cannula* 2 28 04/20/25 11:08 97.5 81 36 147/97 (114) 100 97.5 04/20/25 10:58 85 04/20/25 10:37 96.8 86 33 134/65 (88) 92 96.8 04/20/25 10:20 85 Lab Test 04/20/25 12:15 04/20/25 12:04 04/20/25 11:39 04/20/25 10:45 Range/Units Urine Color Colorless Yellow Urine Clarity Clear Clear Urine pH 6.5 5.0-9.0 Urine Specific [place] 1.005 1.001-1.035 Urine Protein Negative Negative Urine Ketones Negative Negative Urine Blood Negative Negative /uL Urine Nitrite Negative Negative Urine Bilirubin Negative Negative Urine Urobilinogen Normal Negative mg/dL Urine Leukocyte Esterase Negative Negative /uL Urine RBC <1 0 - 4 /hpf Urine Microscopic WBC 0-5 /HPF Urine Squamous Epithelial Cells None seen <5 /hpf Urine Bacteria Few H None Seen /hpf Urine Glucose Normal Normal mg/dL Lactic Acid Level 2.4 *H 0.4-2.0 mmol/L Troponin I High Sensitivity 124 *H </=34 ng/L POC Glucose 97 70-106 mg/dl Test 04/20/25 10:43 04/20/25 10:39 Range/Units White Blood Count 4.7 4.4-10.8 10^3/uL Red Blood Count 4.20 4.0-5.20 10^6/uL Hemoglobin 13.6 12.2-16.2 g/dL Hematocrit 39.8 36.0-46.0 % Mean Corpuscular Volume 94.8 80.0-100.0 fL Mean Corpuscular Hemoglobin 32.3 H 28.0-32.0 pg Mean Corpuscular Hemoglobin Concent 34.1 32.0-36.0 g/dL Red Cell Distribution Width 16.5 H 11.8-14.3 % Platelet Count 203 140-450 10^3/uL Mean Platelet Volume 9.3 6.9-10.8 fL Neutrophils (%) (Auto) 69.3 37.0-80.0 % Lymphocytes (%) (Auto) 17.1 10.0-50.0 % Monocytes (%) (Auto) 6.4 0.0-12.0 % Eosinophils (%) (Auto) 4.8 0.0-7.0 % Basophils (%) (Auto) 2.4 H 0.0-2.0 % Neutrophils # (Auto) 3.3 1.6-8.6 10 ^3/uL Lymphocytes # (Auto) 0.8 0.4-5.4 10 ^3/uL Monocytes # (Auto) 0.3 0-1.3 10 ^3/uL Eosinophils # (Auto) 0.2 0-0.8 10 ^3/uL Basophils # (Auto) 0.1 0-0.2 10 ^3/uL Nucleated Red Blood Cells 0.1 % Sodium Level 142 136-145 mmol/L Potassium Level 4.0 3.5-5.1 mmol/L Chloride Level 106 98-107 mmol/L Carbon Dioxide Level 25 20-31 mmol/L Anion Gap 11 5-15 Blood Urea Nitrogen 15 9-23 mg/dL Creatinine 0.92 0.550-1.02 mg/dL Glomerular Filtration Rate Calc 69 >90 mL/min BUN/Creatinine Ratio 16.3 10.0-20.0 Serum Glucose 92 74-106 mg/dL Lactic Acid Level 2.0 0.4-2.0 mmol/L Calcium Level 9.6 8.7-10.4 mg/dL Total Bilirubin 0.5 0.2-1.0 mg/dL Aspartate Amino Transferase (AST) 28 <34 U/L Alanine Aminotransferase (ALT) 14 7-40 U/L Alkaline Phosphatase 110 46-116 U/L Troponin I High Sensitivity 148 *H </=34 ng/L B-Type Natriuretic Peptide 2167.97 0-100 pg/mL Total Protein 7.7 5.7-8.2 g/dL Albumin 4.3 3.2-4.8 g/dL D-Dimer, Quantitative 2.97 H 0.0-0.49 mg/L FEU Current Medications Medications (Trade) Dose Ordered Sig/Tucker Route Start Time Stop Time Status Last Admin Furosemide (Lasix Injection) 40 mg ONCE ONCE IV 04/20/25 10:45 04/20/25 11:14 DC 04/20/25 11:27 Time of 1ST Reevaluation: 11:00 Reevaluation 1ST: Unchanged Time of 2ND Reevaluation: 11:04 (Patient states significant improvement with the BiPAP) Reevaluation 2ND: Improved Patient Education/Counseling: Diagnosis, Treatment, Other (need for admission ) Family Education/Counseling: No Family Present Comments Patient presented with the above HPI.---respiratory distress---workup was initiated. patient was found with the above mentioned diagnosis. Patient was evaluated immediately upon arrival. Patient was placed on a BiPAP. the following medications were ordered: please refer to order lists of meds and tests obtained by myself Dr. Mariano. Patient ED course and VS have been stabilized. Patient has been reassessed in the ED and remained in a stable condition. Pertinent incidental findings were discussed with the patient and/or family. Patient/family voices understanding and is agreeable with plan. Patient has been observed in the ED adequate length of time to insure improvement/stability. Escalation of care considered: Consideration of escalation to observation or admission Patient was ADMITTED to the medicine team for further evaluation and treatment of their presentation. Patient shows significant improvement throughout her ED course and was weaned off of the BiPAP. I witnessed her eating food. All the reports of any imaging studies that were ordered by myself were reviewed by myself. Departure 1 Departure Time of Disposition: 11:03 Impression: Primary Impression: Acute respiratory distress Additional Impressions: CHF exacerbation Elevated troponin Disposition: ADMITTED INPATIENT Admit to: Tele Condition: Guarded Discharged With: Self Critical Care Note Critical Care Time?: Yes (1 hr-critical care time only) Heart Score Heart Score: Heart Score Response (Comments) Value History Moderate Suspicious 1 EKG Normal 0 Age >65 2 Risk Factors >3 or Hx ASHD 2 Troponin Normal limit 0 Total 5 I personally scribed for ALANA MARIANO DO ([email or web address]) on 04/20/25 at 10:36. Electronically submitted by Cosmo Mathews ([email or web address]). I personally scribed for ALANA MARIANO DO ([email or web address]) on 04/20/25 at 10:58. Electronically submitted by Cosmo Mathews ([email or web address]). I personally scribed for ALANA MARIANO DO ([email or web address]) on 04/20/25 at 15:45. Electro nically submitted by Cosmo Mathews ([email or web address]). ALANA MARIANO DO Apr 20, 2025 10:36
--- NOTE | 2025-04-20 10:55 | DVH ---
XY CHEST PORTABLE, HISTORY: sob COMPARISON: XY CHEST PORTABLE on DOS: 04/05/25, XY CHEST PORTABLE on DOS: 12/04/24, XY CHEST PORTABLE on DOS: 09/19/24 XY CHEST PORTABLE on DOS: 04/05/25, XY CHEST PORTABLE on DOS: 12/04/24, XY CHEST PORTABLE on DOS: 4 TECHNICAL DATA: 1 view of the chest was obtained. FINDINGS: Lines and tubes: Cardiac pacer is seen. Cardiomediastinal silhouette: Enlarged Pulmonary vasculature: promiennt Lung expansion: low Lung airspace: Patchy basilar opacity Lung interstitium: promiennt Pleura: Pneumothorax: no Bones: Unremarkable Other: no IMPRESSION: Cardiomegaly with pulmonary vascular congestion. Bibasilar patchy airspace opacities could be pulmona ry edema. Trace bilateral pleural effusion.
[2025-04-20 11:04] LABS: Basophils # (auto) 0.1 10 ^3/uL (0-0.2); Basophils % (auto) 2.4 % (0.0-2.0); Eosinophils # (auto) 0.2 10 ^3/uL (0-0.8); Eosinophils % (auto) 4.8 % (0.0-7.0); Hematocrit 39.8 % (36.0-46.0); Hemoglobin 13.6 g/dL (12.2-16.2); Lymphocytes # (auto) 0.8 10 ^3/uL (0.4-5.4); Lymphocytes % (auto) 17.1 % (10.0-50.0); Mean Corpuscular Hemoglobin 32.3 pg (28.0-32.0); Mean Corpuscular Hgb Conc. 34.1 g/dL (32.0-36.0); Mean Corpuscular Volume 94.8 fL (80.0-100.0); Monocytes # (auto) 0.3 10 ^3/uL (0-1.3); Monocytes % (auto) 6.4 % (0.0-12.0); Neutrophils # (auto) 3.3 10 ^3/uL (1.6-8.6); Neutrophils % (auto) 69.3 % (37.0-80.0); Nucleated Red Blood Cells % 0.1 %; Platelet Count (auto) 203 10^3/uL (140-450); Red Cell Distribution Width 16.5 % (11.8-14.3); White Blood Cell 4.7 10^3/uL (4.4-10.8)
[2025-04-20 11:18] LABS: Alanine Aminotransferase 14 U/L (7-40); Albumin 4.3 g/dL (3.2-4.8); Alkaline Phosphatase 110 U/L (46-116); Anion Gap 11 (5-15); Aspartate Aminotransferase 28 U/L (<34); BUN/Creatinine Ratio 16.3 (10.0-20.0); Bilirubin, Total 0.5 mg/dL (0.2-1.0); Blood Urea Nitrogen 15 mg/dL (9-23); Calcium 9.6 mg/dL (8.7-10.4); Carbon Dioxide 25 mmol/L (20-31); Chloride 106 mmol/L (98-107); Glucose 92 mg/dL (74-106); Sodium 142 mmol/L (136-145); Total Protein 7.7 g/dL (5.7-8.2)
[2025-04-20 11:25] VITALS: BP 134/85; PULSE 74; O2SAT 99
[2025-04-20] MEDS: FUROSEMIDE 40 MG/4 ML VIAL IV ONE (11:27)
[2025-04-20 11:31] VITALS: O2SAT 99
[2025-04-20] MEDS ORDERED: NITROGLYCERIN 0.4 MG SL TAB SL PRN (12:45)
[2025-04-20] MEDS ORDERED: MORPHINE SULFATE INJ 2 MG/ml SYRG IV PRN (12:45)
[2025-04-20] MEDS ORDERED: ONDANSETRON HCL 4 MG/2 ML VIAL IV PRN (12:45)
--- NOTE | 2025-04-20 12:51 | DVHHP2 ---
History of Present Illness Reason for Visit: sob History of Present Illness Belle Garcia is a 64-year-old female with past medical history of hypertension, hypothyroidism, anxiety, IA, CHF, pacemaker, subungual exostectomy bilateral great toes, total sharp matrixectomy bilateral great toes and J-tube removal who presents to the ED with shortness of breath x3 days. Patient states that she was sitting at home when she sits suddenly developed sh ortness of breath. She reports that she lives with her at home Sean. She also endorses that she is on the list for a heart transplant at [facility]. Patient denies any chest pain, fever, chills, lightheadedness, weakness, dizziness, recent travels, recent ingestion of spoiled food, recent sick contacts, recent trauma or injury, abdominal pain, nausea, vomiting, diarrhea, o r urinary symptoms. Cardiovascular: CHF, HTN, IA Psych: Anxiety Endocrine: Hypothyroidism Past Medical History J-tube removal Past Surgical History: Other (Pacemaker, subungual exostectomy bilateral great toes, and total sharp matrixectomy bilateral great toes) Family History: Cancer, Other (Dad with prostate cancer) Smoke: No ALCOHOL: occassional Drugs: None Lives: with Family Domestic Violence: Neg Review of Systems Respiratory: Shortness of breath Allergies: Coded Allergies: NO KNOWN ALLERGIES (Unverified , 05/19/21) Exam Vital Signs Vital Signs Date Time Temp Pulse Resp B/P (MAP) Pulse Ox O2 Delivery O2 Flow Rate FiO2 04/20/25 12:00 71 20 109/77 (88) 99 04/20/25 11:31 Bi-pap/CPAP 04/20/25 11:25 30 04/20/25 11:23 2 04/20/25 11:08 97.5 97.5 General Appearance: Alert, Oriented X3, Cooperative, moderate distress HEENT: Atraumatic, PERRLA, EOMI, Mucous membr. moist/pink Cardiovascular: Regular rate, Normal S1, Normal S2 Abdominal: Normal bowel sounds, Soft Extremities: No clubbing, No cyanosis, No edema, Normal pulses Skin: No significant lesion Neuro: Normal speech, Strength at 5/5 X4 ext, Normal tone, Sensation intact Psych/Mental Status: Mental status NL, Mood NL Labs/Xrays Labs Test 04/20/25 12:04 04/20/25 11:39 04/20/25 10:45 04/20/25 10:43 Range/Units Troponin I High Sensitivity 124 *H </=34 ng/L POC Glucose 97 70-106 mg/dl White Blood Count 4.7 4.4-10.8 10^3/uL Red Blood Count 4.20 4.0-5.20 10^6/uL Hemoglobin 13.6 12.2-16.2 g/dL Hematocrit 39.8 36.0-46.0 % Mean Corpuscular Volume 94.8 80.0-100.0 fL Mean Corpuscular Hemoglobin 32.3 H 28.0-32.0 pg Mean Corpuscular Hemoglobin Concent 34.1 32.0-36.0 g/dL Red Cell Distribution Width 16.5 H 11.8-14.3 % Platelet Count 203 140-450 10^3/uL Mean Platelet Volume 9.3 6.9-10.8 fL Neutrophils (%) (Auto) 69.3 37.0-80.0 % Lymphocytes (%) (Auto) 17.1 10.0-50.0 % Monocytes (%) (Auto) 6.4 0.0-12.0 % Eosinophils (%) (Auto) 4.8 0.0-7.0 % Basophils (%) (Auto) 2.4 H 0.0-2.0 % Neutrophils # (Auto) 3.3 1.6-8.6 10 ^3/uL Lymphocytes # (Auto) 0.8 0.4-5.4 10 ^3/uL Monocytes # (Auto) 0.3 0-1.3 10 ^3/uL Eosinophils # (Auto) 0.2 0-0.8 10 ^3/uL Basophils # (Auto) 0.1 0-0.2 10 ^3/uL Nucleated Red Blood Cells 0.1 % Sodium Level 142 136-145 mmol/L Potassium Level 4.0 3.5-5.1 mmol/L Chloride Level 106 98-107 mmol/L Carbon Dioxide Level 25 20-31 mmol/L Anion Gap 11 5-15 Blood Urea Nitrogen 15 9-23 mg/dL Creatinine 0.92 0.550-1.02 mg/dL Glomerular Filtration Rate Calc 69 >90 mL/min BUN/Creatinine Ratio 16.3 10.0-20.0 Serum Glucose 92 74-106 mg/dL Calcium Level 9.6 8.7-10.4 mg/dL Total Bilirubin 0.5 0.2-1.0 mg/dL Aspartate Amino Transferase (AST) 28 <34 U/L Alanine Aminotransferase (ALT) 14 7-40 U/L Alkaline Phosphatase 110 46-116 U/L B-Type Natriuretic Peptide 2167.97 0-100 pg/mL Total Protein 7.7 5.7-8.2 g/dL Albumin 4.3 3.2-4.8 g/dL XY CHEST PORTABLE, HISTORY: sob COMPARISON: XY CHEST PORTABLE on DOS: 04/05/25, XY CHEST PORTABLE on DOS: 12/04/24, XY CHEST PORTABLE on DOS: 09/19/24 XY CHEST PORTABLE on DOS: 04/05/25, XY CHEST PORTABLE on DOS: 12/04/24, XY CHEST PORTABLE on DOS: 09/19/24 TECHNICAL DATA: 1 view of the chest was obtained. FINDINGS: Lines and tubes: Cardiac pacer is seen. Cardiomediastinal silhouette: Enlarged Pulmonary vasculature: promiennt Lung expansion: low Lung airspace: Patchy basilar opacity Lung interstitium: promiennt Pleura: Pneumothorax: no Bones: Unremarkable Other: no IMPRESSION: Cardiomegaly with pulmonary vascular congestion. Bibasilar patchy airspace opacities could be pulmonary edema. Trace bilateral pleural effusion. Assessment/Plan Assessment/Plan Assessment Acute chronic CHF exacerbation, NYHA class IV HFrEF less than 25% Cardiomegaly with pulmonary vascular congestion Trace bilateral pleural effusion History of pacemaker Elevated troponins History of hypertension History of hypothyroidism History of anxiety History of IA History of subungual exostectomy bilaterally toes History of total sharp matrixectomy bilateral great toes Plan Admit to [facility] IV antibiotics- Zosyn BiPAP Diuretics Urine culture Respiratory culture UA Blood cultures Lactic trend Trend troponins Chest x-ray BNP EKG D-dimer Daily weight Strict I&Os Diet Home medications reconciled DVT prophylaxis-Lovenox PUD prophylaxis-not indicated no history GERD or GIB Discussed plan of care with patient and nurse Plan discussed with: Patient My Orders Orders - BRYON AHMADI DIGITAL ARCHIVIST Procedure Category Date Status Time D-Dimer LAB 04/20/25 Verified 12:39 Admit ADMIT 04/20/25 Verified 12:39 Allergies ANGLE 04/20/25 Verified 12:39 Code Status CODE 04/20/25 Verified 12:39 Ondansetron Hcl PHA 04/20/25 Verified (Zofran) 12:45 Complete Blood Count LAB 04/21/25 Verified 04:00 Comprehensive LAB 04/21/25 Verified Metabolic Panel 04:00 Cardiac DIET 04/20/25 Verified Diet-2gna,Lofat,Lochol Lunch Acetaminophen Tablet PHA 04/20/25 Verified (Tylenol Tablet) 12:45 Nitroglycerin PHA 04/20/25 Verified Sublingual (Ntrostat 12:45 Morphine Sulfate PHA 04/20/25 Verified Injection 12:45 Stat Ekg For Chest [facility] 04/20/25 Verified Pain 12:39 Notify Md Of Changes [facility] 04/20/25 Verified From Base 12:39 Frame Tender For [facility] 04/20/25 Verified 24 Hours 12:39 Emergency Dysrhythmia [facility] 04/20/25 Verified Protocol 12:39 Rhythm Strips Once [facility] 04/20/25 Verified Every Shift 12:39 Oxygen By Nasal RT 04/20/25 Verified Cannula 12:39 Furosemide Injection PHA 04/20/25 Verified (Lasix Injection) 12:45 Enoxaparin Sodium PHA 04/21/25 Verified (Lovenox) 10:00 Date of Service: Apr 20, 2025 Billing Provider: BRYON AHMADI Common Visit Codes: [id number] INP/OBS CARE (HIGH) BRYON AHMADI Apr 20, 2025 12:51
[2025-04-20 13:03] LABS: Lactic Acid w/Reflex 2.4 mmol/L (0.4-2.0)
[2025-04-20 13:04] LABS: Urine Bacteria FEW /hpf (None Seen); Urine Blood Negative /uL (Negative); Urine Clarity Clear (Clear); Urine Color Colorless (Yellow); Urine Protein, UAD Negative (Negative); Urine Specific Gravity 1.005 (1.001-1.035); Urine Squamous Epithelial Cell None Seen /hpf (<5); Urine Urobilinogen Normal (Negative); Urine pH 6.5 (5.0-9.0)
[2025-04-20] MEDS ORDERED: VANCOMYCIN PER PHARMACY 0 MG IV SCH (13:15)
[2025-04-20] MEDS: FUROSEMIDE 40 MG/4 ML VIAL IV SCH (14:38)
[2025-04-20] MEDS: ASPirin-EC 325mg tab PO ONE (14:39)
[2025-04-20] MEDS: PIPERACILLIN-TAZOB 3.375GM 100 ML IV SCH (14:39)
[2025-04-20] MEDS: VANCOMYCIN 1GM/200ML PM 200 ML IV ONE (15:21)
[2025-04-20 16:02] VITALS: PULSE 72; RESP 16; O2SAT 95
[2025-04-20 21:30] VITALS: O2SAT 98
--- NOTE | 2025-04-20 22:21 | ECG ---
[facility] Test Date: 2025-04-20 Test Time: 10:20:23 Pat Name: ELEAZAR DICKENS Department: ED Room: 0293T Gender: F Director Of Instruction: kasia : 1960 Requested By: NANCY TRINIDAD Order Number: [id number] Reading MD: Paulino Purvis Measurements Intervals [place] Rate: 85 P: 0 NM: 150 QRS: -69 QRSD: 188 T: 0 QT: 0 QTc: 0 Interpretive Statements Ventricular-paced complexes No further analysis attempted due to paced rhythm Electronically Signed On 04-23-2025 22:41:26 PDT by Paulino Purvis Please click the below link to view image of tracing.
[2025-04-20 22:43] VITALS: BP 123/82; PULSE 70; RESP 20; TEMP 98.1; O2SAT 100
[2025-04-21] VITALS (12 sets, daily range): BP systolic 101–123; BP diastolic 58–87; PULSE 65–83; RESP 16–20; TEMP 97.6–98.1; O2SAT 99–100
[2025-04-21] MEDS: VANCOMYCIN 750mg/150ml 150 ML IV SCH (03:38)
[2025-04-21] MEDS ORDERED: ALBUTEROL SULF 2.5 MG/0.5ML(0.5%) NEB SOLN NEB PRN (04:30)
[2025-04-21 06:25] LABS: COVID19 ANTIGEN SOFIA FIA NEGATIVE (NEGATIVE)
[2025-04-21 06:38] LABS: Basophils # (auto) 0.1 10 ^3/uL (0-0.2); Basophils % (auto) 1.4 % (0.0-2.0); Eosinophils # (auto) 0.2 10 ^3/uL (0-0.8); Eosinophils % (auto) 3.9 % (0.0-7.0); Hematocrit 35.5 % (36.0-46.0); Hemoglobin 12.2 g/dL (12.2-16.2); Lymphocytes # (auto) 0.7 10 ^3/uL (0.4-5.4); Mean Corpuscular Hemoglobin 32.6 pg (28.0-32.0); Mean Corpuscular Hgb Conc. 34.4 g/dL (32.0-36.0); Mean Corpuscular Volume 94.9 fL (80.0-100.0); Monocytes # (auto) 0.6 10 ^3/uL (0-1.3); Neutrophils # (auto) 3.7 10 ^3/uL (1.6-8.6); Neutrophils % (auto) 69.7 % (37.0-80.0); Platelet Count (auto) 175 10^3/uL (140-450); Red Blood Cells 3.74 10^6/uL (4.0-5.20); Red Cell Distribution Width 16.4 % (11.8-14.3); White Blood Cell 5.2 10^3/uL (4.4-10.8)
[2025-04-21 06:53] LABS: Albumin 3.9 g/dL (3.2-4.8); Alkaline Phosphatase 100 U/L (46-116); Anion Gap 12 (5-15); Aspartate Aminotransferase 25 U/L (<34); Calcium 9.3 mg/dL (8.7-10.4); Carbon Dioxide 25 mmol/L (20-31); Chloride 102 mmol/L (98-107); Glucose 83 mg/dL (74-106); Potassium 3.6 mmol/L (3.5-5.1); Sodium 139 mmol/L (136-145); Total Protein 7.1 g/dL (5.7-8.2)
[2025-04-21 06:54] LABS: Bilirubin, Total 0.9 mg/dL (0.2-1.0)
[2025-04-21 06:55] LABS: Alanine Aminotransferase 9 U/L (7-40); Blood Urea Nitrogen 24 mg/dL (9-23)
[2025-04-21] MEDS ORDERED: IOHEXOL 350 MG/ML 100ML IJ ONE (08:09)
[2025-04-21] MEDS: ASPirin-EC 81 mg tab PO SCH (10:26)
[2025-04-21] MEDS: MULTIPLE VITAMIN TAB PO SCH (10:27)
[2025-04-21] MEDS: LEVOTHYROXINE SODIUM 88 MCG TAB PO SCH (10:28)
[2025-04-21] MEDS: SPIRONOLACTONE 25 MG TAB PO SCH (10:28)
[2025-04-21] MEDS: AMIODARONE HCL 200 MG TAB PO SCH (10:28)
[2025-04-21] MEDS: DIGOXIN 0.125 MG TAB PO SCH (10:29)
[2025-04-21] MEDS: ENOXAPARIN SOD 40 MG/0.4 ML SYRINGE SC SCH (10:29)
[2025-04-21] MEDS: ACETAMINOPHEN 325 MG TAB PO PRN (10:46)
--- NOTE | 2025-04-21 13:33 | DVH ---
CT CT ANGIO CHEST CONTRAST INDICATION: sob EXAM DATE: 04/21/2025 12:47 PM COMPARISON: CT CT ANGIO CHEST CONTRAST on DOS: 04/05/25, CT CT ANGIO CHEST CONTRAST on DOS: 02/09/24, CT ANGIO CHEST CONTRAST on DOS: 01/06/21 RADIATION DOSE: CTDIvol: 8.38 mGy, DLP: 320.08 mGy*cm PROCEDURE: Helical CT angiographic images were obtained of the chest with intravenous contrast. Sagi ttal and coronal reconstructions as well as MIPS are provided. Maximum intensity projections performe d (MIPs) were performed for CTA. ADDITIONAL IMAGES / REFORMATS: None All CT scans at this medical facility are performed using dose modulation techniques as appropriate t o a performed exam including the following: Automated exposure control was utilized; adjustment of th e MA and/or KV according to patient size; and use of iterative reconstruction technique. FINDINGS: Bones: Scattered degenerative changes are noted in the visualized osseous structures. Visualized Abdomen: Unremarkable Chest Wall: Breast implants are seen. Soft tissues: Normal. Mediastinum: Moderate hiatal hernia. Heart: Large. Cardiac pacer seen. Vessels: No filling defects in the visualized pulmonary arteries including the segmental and subsegme ntal pulmonary arteries. Lymph Nodes: Normal. Pleura: Small bilateral pleural effusion. Airways: Normal. Lung: Bibasilar atelectasis. Other: None IMPRESSION: No pulmonary embolism in the visualized pulmonary arteries including the segmental and subsegmental p ulmonary arteries. Cardiomegaly can be seen with CHF. Bibasilar atelectasis with small pleural effusions. Moderate hiatal hernia.
[2025-04-22] VITALS (12 sets, daily range): BP systolic 95–113; BP diastolic 49–70; PULSE 61–81; RESP 16–18; TEMP 97.1–98.3; O2SAT 97–100
[2025-04-22 10:28] LABS: Hepatitis B Surface Antigen Negative (Negative)
[2025-04-22 10:30] LABS: Hepatitis C Antibody Negative (Negative)
--- NOTE | 2025-04-22 16:15 | DVHPN2 ---
Progress Note Date Seen: Apr 22, 2025 Medical Necessity Reason Pt with a Central, PICC or Fol: No Subjective Patient reports: No new complaints Review of Systems: HEENT:Normal, CVS:Normal, RESPIRATORY:Normal, GI:Normal, :Normal, MSK:Normal, NEURO:Normal Objective vital signs Vital Sign Date Time Temp Pulse Resp B/P (MAP) Pulse Ox O2 Delivery O2 Flow Rate FiO2 04/22/25 13:23 98.3 71 17 113/65 (81) 97 98.3 04/22/25 10:00 Nasal Cannula* 2 28 Total Intake and Output 04/21/25 04/21/25 04/22/25 15:00 23:00 07:00 Intake Total 100 ml 790 ml 500 ml Output Total 250 ml 900 ml Balance 100 ml 540 ml -400 ml medications Current Medications Medications Dose Ordered Sig/Tucker Route Start Time Stop Time Status Last Admin Dose Admin Ondansetron HCl 4 mg Q4HP PRN IV 04/20/25 12:45 Acetaminophen 650 mg Q6HP PRN PO 04/20/25 12:45 04/21/25 10:46 650 MG Nitroglycerin 0.4 mg Q5MINP PRN SL 04/20/25 12:45 Morphine Sulfate 2 mg Q30M PRN IV 04/20/25 12:45 Furosemide 40 mg BIDD IV 04/20/25 12:45 04/21/25 18:09 40 MG Enoxaparin Sodium 40 mg DAILY SC 04/21/25 10:00 04/22/25 10:36 40 MG Piperacillin Sod/ Tazobactam Sod 100 ml @ 25 mls/hr Q8HR IV 04/20/25 13:00 04/22/25 13:17 25 MLS/HR Amiodarone HCl 200 mg DAILY PO 04/21/25 10:00 04/22/25 10:37 200 MG Digoxin 0.125 mg DAILY PO 04/21/25 10:00 04/22/25 10:38 0.125 MG Levothyroxine Sodium 88 mcg DAILY PO 04/21/25 10:00 04/22/25 10:37 88 MCG Multivitamins 1 tab DAILY PO 04/21/25 10:00 04/22/25 10:36 1 TAB Spironolactone 25 mg DAILY PO 04/21/25 10:00 04/22/25 10:37 25 MG Aspirin 81 mg DAILY PO 04/21/25 10:00 04/22/25 10:36 81 MG Vancomycin HCl 0 ml @ 0 mls/hr UD IV 04/20/25 13:15 Albuterol 2.5 mg Q4HPRN PRN NEB 04/22/25 07:15 Vancomycin HCl 150 ml @ 150 mls/hr Q14H IV 04/23/25 05:00 Examination: GENERAL:Normal, HEENT:Normal, NECK:Normal, LUNGS:Normal, LUNGS:Abnormal (ON OXYGEN), CVS:Normal, ABDOMEN:Normal, MSK:Normal, SKIN:Normal, NEURO:Normal, :Normal laboratory and microbiology Laboratory Tests 04/22/25 12:59 04/21/25 05:50 Test 04/21/25 05:50 Range/Units Serum Glucose 83 74-106 mg/dL Microbiology Date/Time Source Procedure Growth Status 04/21/25 05:18 Nose MRSA Screen - Final Complete 04/20/25 13:40 Sputum Gram Stain - Final Resulted 04/20/25 13:40 Sputum Respiratory Culture - Preliminary Resulted 04/20/25 12:15 Voided Urine Urine Culture - Final Complete 04/20/25 12:04 Blood Blood Culture - Preliminary NO GROWTH AFTER 48 HOURS OF INCUBATION. Resulted Problem List/Assessment/Plan Problem List/Assessment/Plan * acute on Chronic systolic heart failure.: iv lasix * Hypothyroidism. * History of automatic implantable cardioverter-defibrillator. * Moderate protein malnutrition. * acute on chronic resp failure: cont oxygen advance care planning- full code- time spent 19 mins Plan discussed with: Patient My Orders My Orders Orders - SMITHA ALDRIDGE MD Procedure Category Date Status Time * Cardiology Consult CONS 04/22/25 Transmitted 16:06 Basic Metabolic Panel LAB 04/23/25 Verified 06:00 Magnesium LAB 04/23/25 Verified 05:00 Chest Portable XY 04/23/25 Logged 06:00 Date of Service: Apr 22, 2025 Billing Provider: SMITHA ALDRIDGE MD Common Visit Codes: [id number] INP/OBS CARE(HIGH) Secondary Visit Codes: [id number] CARE PLAN 30 MINUTES SMITHA ALDRIDGE MD Apr 22, 2025 16:15
[2025-04-22] MEDS: ALBUTEROL SULF 2.5 MG/0.5ML(0.5%) NEB SOLN NEB PRN (18:17)
[2025-04-23] VITALS (10 sets, daily range): BP systolic 93–111; BP diastolic 54–71; PULSE 55–79; RESP 16–20; TEMP 97.3–98; O2SAT 93–100
[2025-04-23] MEDS ORDERED: VANCOMYCIN 750mg/150ml 150 ML IV SCH (05:00)
[2025-04-23 06:23] LABS: Chloride 99 mmol/L (98-107); Sodium 139 mmol/L (136-145)
[2025-04-23 06:24] LABS: Anion Gap 10 (5-15); Calcium 8.8 mg/dL (8.7-10.4); Carbon Dioxide 30 mmol/L (20-31)
[2025-04-23 06:29] LABS: BUN/Creatinine Ratio 16.8 (10.0-20.0); Blood Urea Nitrogen 16 mg/dL (9-23); Glucose 85 mg/dL (74-106)
[2025-04-23 06:30] LABS: Magnesium 1.9 mg/dL (1.6-2.6)
--- NOTE | 2025-04-23 06:36 | DVH ---
EXAM: XR Chest, 1 View CLINICAL INDICATION: chf TECHNIQUE: Frontal view of the chest. COMPARISON: No relevant prior studies available. FINDINGS: LUNGS AND PLEURAL SPACES: See below. HEART: Cardiomegaly with mild congestion. MEDIASTINUM: Unremarkable. Normal mediastinal contour. BONES/JOINTS: Unremarkable. No acute fracture. TUBES, LINES AND DEVICES: Left-sided cardiac pacemaker. OTHER FINDINGS: Comparison XY CHEST PORTABLE on DOS: 04/20/25, XY CHEST PORTABLE on DOS: 04/05/25, XY CHEST PORTABLE on DOS: 12/04/24, XY CHEST PORTABLE on DOS: 09/19/24, XY CHEST PORTABLE on DOS: 08/31/24. . IMPRESSION: Cardiomegaly with mild congestion. HS:Y
--- NOTE | 2025-04-23 12:40 | DVHPN2 ---
Progress Note Date Seen: Apr 23, 2025 Medical Necessity Reason Pt with a Central, PICC or Fol: No Subjective Patient reports: No new complaints Review of Systems: HEENT:Normal, CVS:Normal, RESPIRATORY:Normal, GI:Normal, :Normal, MSK:Normal, NEURO:Normal Objective vital signs Vital Sign Date Time Temp Pulse Resp B/P (MAP) Pulse Ox O2 Delivery O2 Flow Rate FiO2 04/23/25 09:59 100 Nasal Cannula* 3 32 04/23/25 09:13 68 04/23/25 08:38 98.0 16 111/71 (84) 98.0 Total Intake and Output 04/22/25 04/22/25 04/23/25 15:00 23:00 07:00 Intake Total 100 ml 1816 ml 200 ml Output Total 700 ml 1600 ml Balance 100 ml 1116 ml -1400 ml medications Current Medications Medications Dose Ordered Sig/Tucker Route Start Time Stop Time Status Last Admin Dose Admin Ondansetron HCl 4 mg Q4HP PRN IV 04/20/25 12:45 Acetaminophen 650 mg Q6HP PRN PO 04/20/25 12:45 04/23/25 02:12 650 MG Nitroglycerin 0.4 mg Q5MINP PRN SL 04/20/25 12:45 Morphine Sulfate 2 mg Q30M PRN IV 04/20/25 12:45 Furosemide 40 mg BIDD IV 04/20/25 12:45 04/23/25 05:58 40 MG Enoxaparin Sodium 40 mg DAILY SC 04/21/25 10:00 04/23/25 09:13 40 MG Piperacillin Sod/ Tazobactam Sod 100 ml @ 25 mls/hr Q8HR IV 04/20/25 13:00 04/23/25 05:59 25 MLS/HR Amiodarone HCl 200 mg DAILY PO 04/21/25 10:00 04/23/25 09:13 200 MG Digoxin 0.125 mg DAILY PO 04/21/25 10:00 04/23/25 09:13 0.125 MG Levothyroxine Sodium 88 mcg DAILY PO 04/21/25 10:00 04/23/25 09:14 88 MCG Multivitamins 1 tab DAILY PO 04/21/25 10:00 04/23/25 09:14 1 TAB Spironolactone 25 mg DAILY PO 04/21/25 10:00 04/23/25 09:14 25 MG Aspirin 81 mg DAILY PO 04/21/25 10:00 04/23/25 09:14 81 MG Albuterol 2.5 mg Q4HPRN PRN NEB 04/22/25 07:15 04/22/25 18:17 2.5 MG Examination: GENERAL:Normal, HEENT:Normal, NECK:Normal, LUNGS:Normal, LUNGS:Abnormal (on oxygen), CVS:Normal, ABDOMEN:Normal, MSK:Normal, SKIN:Normal, NEURO:Normal, :Normal laboratory and microbiology Laboratory Tests 04/23/25 04:44 04/21/25 05:50 Test 04/23/25 04:44 Range/Units Serum Glucose 85 74-106 mg/dL Microbiology Date/Time Source Procedure Growth Status 04/21/25 05:18 Nose MRSA Screen - Final Complete 04/20/25 13:40 Sputum Gram Stain - Final Complete 04/20/25 13:40 Respiratory Culture - Final Pseudomonas aeruginosa Complete 04/20/25 12:15 Voided Urine Urine Culture - Final Complete 04/20/25 12:04 Blood Blood Culture - Preliminary NO GROWTH AFTER 72 HOURS OF INCUBATION. Resulted Problem List/Assessment/Plan Problem List/Assessment/Plan * acute on Chronic systolic heart failure.: iv lasix * Hypothyroidism. * History of automatic implantable cardioverter-defibrillator. * Moderate protein malnutrition. * acute on chronic resp failure: cont oxygen * pseud pneumonia: on zosyn advance care planning- full code- time spent 19 mins Plan discussed with: Patient My Orders My Orders Orders - SMITHA ALDRIDGE MD Procedure Category Date Status Time * Cardiology Consult CONS 04/22/25 Transmitted 16:06 Chest Portable XY 04/23/25 Resulted 06:00 Furosemide Injection PHA 04/23/25 Verified (Lasix Injection) 18:00 Potassium Er Tablet PHA 04/23/25 Verified (Klor-Con Tablet) 12:45 Potassium Er Tablet PHA 04/24/25 Verified (Klor-Con Tablet) 10:00 Magnesium Roberto PHA 04/23/25 Verified 13:00 Basic Metabolic Panel LAB 04/24/25 Verified 06:00 Magnesium LAB 04/24/25 Verified 05:00 Date of Service: Apr 23, 2025 Billing Provider: SMITHA ALDRIDGE MD Common Visit Codes: [id number] INP/OBS CARE(HIGH) Secondary Visit Codes: [id number] CARE PLAN 30 MINUTES SMITHA ALDRIDGE MD Apr 23, 2025 12:40
[2025-04-23] MEDS: POTASSIUM CHL 20 Meq TABLET PO ONE (13:12)
[2025-04-23] MEDS: MAGNESIUM SULFATE 1GM/100ML 100 ML IV SCH (13:17)
--- NOTE | 2025-04-23 13:59 | DVHPN2 ---
Progress Note - Dictate Date Seen: Apr 22, 2025 Medical Necessity Reason Pt with a Central, PICC or Fol: No Subjective DILATED CM EF <20% [facility] RESULTS: * Left main, patent. * Left anterior descending artery was patent. * Circumflex was patent. * Right coronary artery was patent. * The patient with dilated cardiomyopathy with EF less than 20% with an LVEDP elevated at 22 mmHg. Left ventricular systolic pressure 110. [facility] LAST YEAR NEGATIVE ACUTE DECOMPENSATION OF HFrEF vital signs Vital Sign Date Time Temp Pulse Resp B/P (MAP) Pulse Ox O2 Delivery O2 Flow Rate FiO2 04/23/25 13:00 98.0 55 16 93/60 (71) 97 98.0 04/23/25 09:59 Nasal Cannula* 3 32 Total Intake and Output 04/22/25 04/22/25 04/23/25 15:00 23:00 07:00 Intake Total 100 ml 1816 ml 200 ml Output Total 700 ml 1600 ml Balance 100 ml 1116 ml -1400 ml medications Current Medications Medications Dose Ordered Sig/Tucker Route Start Time Stop Time Status Last Admin Dose Admin Ondansetron HCl 4 mg Q4HP PRN IV 04/20/25 12:45 Acetaminophen 650 mg Q6HP PRN PO 04/20/25 12:45 04/23/25 02:12 650 MG Nitroglycerin 0.4 mg Q5MINP PRN SL 04/20/25 12:45 Morphine Sulfate 2 mg Q30M PRN IV 04/20/25 12:45 Enoxaparin Sodium 40 mg DAILY SC 04/21/25 10:00 04/23/25 09:13 40 MG Piperacillin Sod/ Tazobactam Sod 100 ml @ 25 mls/hr Q8HR IV 04/20/25 13:00 04/23/25 05:59 25 MLS/HR Amiodarone HCl 200 mg DAILY PO 04/21/25 10:00 04/23/25 09:13 200 MG Digoxin 0.125 mg DAILY PO 04/21/25 10:00 04/23/25 09:13 0.125 MG Levothyroxine Sodium 88 mcg DAILY PO 04/21/25 10:00 04/23/25 09:14 88 MCG Multivitamins 1 tab DAILY PO 04/21/25 10:00 04/23/25 09:14 1 TAB Spironolactone 25 mg DAILY PO 04/21/25 10:00 04/23/25 09:14 25 MG Aspirin 81 mg DAILY PO 04/21/25 10:00 04/23/25 09:14 81 MG Albuterol 2.5 mg Q4HPRN PRN NEB 04/22/25 07:15 04/22/25 18:17 2.5 MG Furosemide 20 mg BIDD IV 04/23/25 18:00 Potassium Chloride 40 meq DAILY PO 04/24/25 10:00 Magnesium Sulfate/ Dextrose 100 ml @ 100 mls/hr Q1HR IV 04/23/25 13:00 04/23/25 14:59 04/23/25 13:17 100 MLS/HR laboratory and microbiology Laboratory Tests 04/23/25 04:44 04/21/25 05:50 Test 04/23/25 04:44 Range/Units Serum Glucose 85 74-106 mg/dL Problem List DILATED CM EF <20% [facility] RESULTS: * Left main, patent. * Left anterior descending artery was patent. * Circumflex was patent. * Right coronary artery was patent. * The patient with dilated cardiomyopathy with EF less than 20% with an LVEDP elevated at 22 mmHg. Left ventricular systolic pressure 110. [facility] LAST YEAR NEGATIVE ACUTE DECOMPENSATION OF HFrEF Assessment/Plan CONSIDER [facility] SINCE SECOND ADMISSION FOR CHEST PAIN AND HF DIURESIS ADD SGLT2 Dietary Evaluation Review Comments: Continue current POC Expected Outcomes/Goals: To meet >75% estimated needs Fu 3-5 days Plan discussed with: Patient, Spouse Critical Care Time(min): 35 KALLIE GLASGOW MD Apr 23, 2025 13:59
[2025-04-23] MEDS: FUROSEMIDE 40 MG/4 ML VIAL IV SCH (17:11)
[2025-04-24] VITALS (7 sets, daily range): BP systolic 99–107; BP diastolic 64–72; PULSE 65–73; RESP 15–18; TEMP 97.2–97.5; O2SAT 94–100
[2025-04-24] MEDS: PIPERACILLIN-TAZOB 3.375GM 100 ML IV SCH (00:01)
[2025-04-24 08:21] LABS: Chloride 101 mmol/L (98-107)
[2025-04-24 08:22] LABS: Calcium 9.6 mg/dL (8.7-10.4)
[2025-04-24 08:27] LABS: Blood Urea Nitrogen 20 mg/dL (9-23); Glucose 83 mg/dL (74-106)
[2025-04-24 08:28] LABS: Magnesium 2.4 mg/dL (1.6-2.6)
[2025-04-24 08:46] LABS: Potassium 3.5 mmol/L (3.5-5.1); Sodium 139 mmol/L (136-145)
[2025-04-24 08:47] LABS: Anion Gap 10 (5-15); Carbon Dioxide 28 mmol/L (20-31)
--- NOTE | 2025-04-24 09:06 | DVHPN2 ---
Progress Note - Dictate Date Seen: Apr 23, 2025 Medical Necessity Reason Pt with a Central, PICC or Fol: No Subjective DILATED CM EF <20% [facility] RESULTS: * Left main, patent. * Left anterior descending artery was patent. * Circumflex was patent. * Right coronary artery was patent. * The patient with dilated cardiomyopathy with EF less than 20% with an LVEDP elevated at 22 mmHg. Left ventricular systolic pressure 110. [facility] LAST YEAR NEGATIVE ACUTE DECOMPENSATION OF HFrEF vital signs Vital Sign Date Time Temp Pulse Resp B/P (MAP) Pulse Ox O2 Delivery O2 Flow Rate FiO2 04/24/25 05:06 102/62 04/24/25 05:00 97.5 66 17 97 97.5 04/24/25 01:39 1.0 24 04/23/25 20:00 Nasal Cannula* Total Intake and Output 04/23/25 04/23/25 04/24/25 15:00 23:00 07:00 Intake Total 100 ml 1025 ml 1140 ml Output Total 1500 ml 650 ml Balance 100 ml -475 ml 490 ml medications Current Medications Medications Dose Ordered Sig/Tucker Route Start Time Stop Time Status Last Admin Dose Admin Ondansetron HCl 4 mg Q4HP PRN IV 04/20/25 12:45 Acetaminophen 650 mg Q6HP PRN PO 04/20/25 12:45 04/23/25 02:12 650 MG Nitroglycerin 0.4 mg Q5MINP PRN SL 04/20/25 12:45 Morphine Sulfate 2 mg Q30M PRN IV 04/20/25 12:45 Enoxaparin Sodium 40 mg DAILY SC 04/21/25 10:00 04/23/25 09:13 40 MG Amiodarone HCl 200 mg DAILY PO 04/21/25 10:00 04/23/25 09:13 200 MG Digoxin 0.125 mg DAILY PO 04/21/25 10:00 04/23/25 09:13 0.125 MG Levothyroxine Sodium 88 mcg DAILY PO 04/21/25 10:00 04/23/25 09:14 88 MCG Multivitamins 1 tab DAILY PO 04/21/25 10:00 04/23/25 09:14 1 TAB Spironolactone 25 mg DAILY PO 04/21/25 10:00 04/23/25 09:14 25 MG Aspirin 81 mg DAILY PO 04/21/25 10:00 04/23/25 09:14 81 MG Furosemide 20 mg BIDD IV 04/23/25 18:00 04/23/25 17:11 20 MG Potassium Chloride 40 meq DAILY PO 04/24/25 10:00 Patient Own Medication 5 mg DAILY PO 04/24/25 10:00 Piperacillin Sod/ Tazobactam Sod 100 ml @ 25 mls/hr Q8H IV 04/24/25 00:00 04/24/25 00:01 25 MLS/HR laboratory and microbiology Laboratory Tests 04/24/25 06:43 04/21/25 05:50 Test 04/24/25 06:43 Range/Units Serum Glucose 83 74-106 mg/dL Problem List DILATED CM EF <20% [facility] RESULTS: * Left main, patent. * Left anterior descending artery was patent. * Circumflex was patent. * Right coronary artery was patent. * The patient with dilated cardiomyopathy with EF less than 20% with an LVEDP elevated at 22 mmHg. Left ventricular systolic pressure 110. [facility] LAST YEAR NEGATIVE ACUTE DECOMPENSATION OF HFrEF Assessment/Plan CONSIDER [facility] SINCE SECOND ADMISSION FOR CHEST PAIN AND HF DIURESIS ADD SGLT2 MAY DC HOME NEED TO STRESS TO STAY ON MEDS Dietary Evaluation Review Comments: Continue current POC Expected Outcomes/Goals: To meet >75% estimated needs Fu 3-5 days Plan discussed with: Patient KALLIE GLASGOW MD Apr 24, 2025 09:06
--- NOTE | 2025-04-24 09:06 | DVHPN2 ---
Progress Note - Dictate Date Seen: Apr 24, 2025 Medical Necessity Reason Pt with a Central, PICC or Fol: No Subjective DILATED CM EF <20% [facility] RESULTS: * Left main, patent. * Left anterior descending artery was patent. * Circumflex was patent. * Right coronary artery was patent. * The patient with dilated cardiomyopathy with EF less than 20% with an LVEDP elevated at 22 mmHg. Left ventricular systolic pressure 110. [facility] LAST YEAR NEGATIVE ACUTE DECOMPENSATION OF HFrEF vital signs Vital Sign Date Time Temp Pulse Resp B/P (MAP) Pulse Ox O2 Delivery O2 Flow Rate FiO2 04/24/25 05:06 102/62 04/24/25 05:00 97.5 66 17 97 97.5 04/24/25 01:39 1.0 24 04/23/25 20:00 Nasal Cannula* Total Intake and Output 04/23/25 04/23/25 04/24/25 15:00 23:00 07:00 Intake Total 100 ml 1025 ml 1140 ml Output Total 1500 ml 650 ml Balance 100 ml -475 ml 490 ml medications Current Medications Medications Dose Ordered Sig/Tucker Route Start Time Stop Time Status Last Admin Dose Admin Ondansetron HCl 4 mg Q4HP PRN IV 04/20/25 12:45 Acetaminophen 650 mg Q6HP PRN PO 04/20/25 12:45 04/23/25 02:12 650 MG Nitroglycerin 0.4 mg Q5MINP PRN SL 04/20/25 12:45 Morphine Sulfate 2 mg Q30M PRN IV 04/20/25 12:45 Enoxaparin Sodium 40 mg DAILY SC 04/21/25 10:00 04/23/25 09:13 40 MG Amiodarone HCl 200 mg DAILY PO 04/21/25 10:00 04/23/25 09:13 200 MG Digoxin 0.125 mg DAILY PO 04/21/25 10:00 04/23/25 09:13 0.125 MG Levothyroxine Sodium 88 mcg DAILY PO 04/21/25 10:00 04/23/25 09:14 88 MCG Multivitamins 1 tab DAILY PO 04/21/25 10:00 04/23/25 09:14 1 TAB Spironolactone 25 mg DAILY PO 04/21/25 10:00 04/23/25 09:14 25 MG Aspirin 81 mg DAILY PO 04/21/25 10:00 04/23/25 09:14 81 MG Furosemide 20 mg BIDD IV 04/23/25 18:00 04/23/25 17:11 20 MG Potassium Chloride 40 meq DAILY PO 04/24/25 10:00 Patient Own Medication 5 mg DAILY PO 04/24/25 10:00 Piperacillin Sod/ Tazobactam Sod 100 ml @ 25 mls/hr Q8H IV 04/24/25 00:00 04/24/25 00:01 25 MLS/HR laboratory and microbiology Laboratory Tests 04/24/25 06:43 04/21/25 05:50 Test 04/24/25 06:43 Range/Units Serum Glucose 83 74-106 mg/dL Problem List DILATED CM EF <20% [facility] RESULTS: * Left main, patent. * Left anterior descending artery was patent. * Circumflex was patent. * Right coronary artery was patent. * The patient with dilated cardiomyopathy with EF less than 20% with an LVEDP elevated at 22 mmHg. Left ventricular systolic pressure 110. [facility] LAST YEAR NEGATIVE ACUTE DECOMPENSATION OF HFrEF Assessment/Plan CONSIDER [facility] SINCE SECOND ADMISSION FOR CHEST PAIN AND HF DIURESIS ADD SGLT2 MAY DC HOME NEED TO STRESS TO STAY ON MEDS Dietary Evaluation Review Comments: Continue current POC Expected Outcomes/Goals: To meet >75% estimated needs Fu 3-5 days Plan discussed with: Patient KALLIE GLASGOW MD Apr 24, 2025 09:06
[2025-04-24] MEDS: POTASSIUM CHL 20 Meq TABLET PO SCH (09:24)
[2025-04-24] MEDS: FARXIGA 5 MG PO SCH (09:43)
--- NOTE | 2025-04-24 15:04 | DVHDS2 ---
Discharge Summary Date of Admission Apr 20, 2025 at 12:39 Date of Discharge: Apr 24, 2025 Labs/Diagnostic Data: Laboratory Results Test 04/24/25 06:43 04/22/25 12:59 04/22/25 02:00 04/21/25 05:50 Sodium Level 139 mmol/L (136-145) Potassium Level 3.5 mmol/L (3.5-5.1) Chloride Level 101 mmol/L (98-107) Carbon Dioxide Level 28 mmol/L (20-31) Anion Gap 10 (5-15) Blood Urea Nitrogen 20 mg/dL (9-23) Creatinine 0.91 mg/dL (0.550-1.02) Glomerular Filtration Rate Calc 70 mL/min (>90) BUN/Creatinine Ratio 22.0 (10.0-20.0) Serum Glucose 83 mg/dL (74-106) Calcium Level 9.6 mg/dL (8.7-10.4) Magnesium Level 2.4 mg/dL (1.6-2.6) Random Vancomycin Level 11.3 ug/mL (5-10) Vancomycin Level Trough 20.8 ug/mL (5-10) White Blood Count 5.2 10^3/uL (4.4-10.8) Red Blood Count 3.74 10^6/uL (4.0-5.20) Hemoglobin 12.2 g/dL (12.2-16.2) Hematocrit 35.5 % (36.0-46.0) Mean Corpuscular Volume 94.9 fL (80.0-100.0) Mean Corpuscular Hemoglobin 32.6 pg (28.0-32.0) Mean Corpuscular Hemoglobin Concent 34.4 g/dL (32.0-36.0) Red Cell Distribution Width 16.4 % (11.8-14.3) Platelet Count 175 10^3/uL (140-450) Mean Platelet Volume 9.7 fL (6.9-10.8) Neutrophils (%) (Auto) 69.7 % (37.0-80.0) Lymphocytes (%) (Auto) 13.0 % (10.0-50.0) Monocytes (%) (Auto) 12.0 % (0.0-12.0) Eosinophils (%) (Auto) 3.9 % (0.0-7.0) Basophils (%) (Auto) 1.4 % (0.0-2.0) Neutrophils # (Auto) 3.7 10 ^3/uL (1.6-8.6) Lymphocytes # (Auto) 0.7 10 ^3/uL (0.4-5.4) Monocytes # (Auto) 0.6 10 ^3/uL (0-1.3) Eosinophils # (Auto) 0.2 10 ^3/uL (0-0.8) Basophils # (Auto) 0.1 10 ^3/uL (0-0.2) Nucleated Red Blood Cells 0.0 % Total Bilirubin 0.9 mg/dL (0.2-1.0) Aspartate Amino Transferase (AST) 25 U/L (<34) Alanine Aminotransferase (ALT) 9 U/L (7-40) Alkaline Phosphatase 100 U/L (46-116) Total Protein 7.1 g/dL (5.7-8.2) Albumin 3.9 g/dL (3.2-4.8) Digoxin Level < 0.14 ng/mL (0.8-2) Hepatitis B Surface Antigen Negative (Negative) Hepatitis C Antibody Negative (Negative) Test 04/21/25 05:18 04/20/25 13:40 04/20/25 12:15 04/20/25 10:45 SARS-CoV-2 Antigen (Rapid) Negative (NEGATIVE) Lactic Acid Level 1.7 mmol/L (0.4-2.0) Troponin I High Sensitivity 126 ng/L (</=34) Urine Color Colorless (Yellow) Urine Clarity Clear (Clear) Urine pH 6.5 (5.0-9.0) Urine Specific [place] 1.005 (1.001-1.035) Urine Protein Negative (Negative) Urine Ketones Negative (Negative) Urine Blood Negative /uL (Negative) Urine Nitrite Negative (Negative) Urine Bilirubin Negative (Negative) Urine Urobilinogen Normal mg/dL (Negative) Urine Leukocyte Esterase Negative /uL (Negative) Urine RBC <1 /hpf (0 - 4) Urine Microscopic WBC /HPF (0-5) Urine Squamous Epithelial Cells None seen /hpf (<5) Urine Bacteria Few /hpf (None Seen) Urine Glucose Normal mg/dL (Normal) POC Glucose 97 mg/dl (70-106) Test 6/21/25 10:43 04/20/25 10:39 B-Type Natriuretic Peptide 2167.97 pg/mL (0-100) D-Dimer, Quantitative 2.97 mg/L FEU (0.0-0.49) Other Laboratory Tests 04/24/25 06:43 04/21/25 05:50 Brief Hx & Hospital Course: see dictated note Condition at Discharge: Fair Final Diagnosis/Problems List chf Discharge Disposition: Home Discharge Instruct/Medications Diet: Cardiac 2g Na,low cholest Activity: No Restrictions, As Tolerated Follow Up/Referral: fu with dr Patterson Medications: resume home meds script to pharmacy Discharge Statement: "Patient was advised to return to the ER or call 911 if any headaches, dizziness, shortness of breath, chest pain, abdominal pain, bleeding, fevers, or worsening of medical condition. Patient was counseled about treatment plan, medications, possible side effects, patientverbalized understanding. All questions were answered to the best of my ability. This discharge took greater then 30 minutes in planning, reviewing documentation, counseling the patient, and discussing with other team members." ASSESSMENT ASSESSMENT Assessment chf Date of Service: Apr 24, 2025 Billing Provider: SMITHA ALDRIDGE MD Common Visit Codes: 80886-XRV/OBS DISCH DAY >30min SMITHA ALDRIDGE MD Apr 24, 2025 15:04
[2025-04-24] MEDS ORDERED: LEVO500T91 PO (15:05)
--- NOTE | 2025-04-24 15:59 | DVHDS ---
HISTORY OF PRESENT ILLNESS: The patient is a 65-year-old lady who is admitted with history of increasing shortness of breath. The patient has history of congestive heart failure, pacemaker, hypertension, and hypothyroidism. HOSPITAL COURSE: The patient was placed on intravenous diuretics. Her sputum grew pseudomonas aeruginosa, sensitive to Levaquin. The patient currently is doing well and will be discharged home to resume her home medications as well as to be on Levaquin 500 mg daily x 7 days. She will follow up with Dr. Baca in 1 week. FINAL DIAGNOSES: * Acute on chronic systolic heart failure. * Pneumonia secondary to pseudomonas. * Hypothyroidism. * History of AICD placement. * Acute and chronic respiratory failure. * Moderate protein malnutrition. Time spent in discharge planning and review of plan with the patient and edi consultant was 37 minutes. MD FAINA Salazar/RYAN TID: [id number] RECEIPT: [id number]
== END 2025-04-24 17:46 | disposition home or self-care (01) | DRG 177 ==
LOC: EDBD 10:16 → ER 10:23 → OVERFLOW 12:39 → TELE-WESTW 22:44
PROVIDERS: ADMIT Internal Medicine; ATTEND Internal Medicine
PROC: 5A09357 Assistance with Respiratory Ventilation, Less than 24 Consecutive Hours, Continuous Positive Airway Pressure (ICD-10-PCS; principal; 2025-04-20)
PROC: 05H933Z Insertion of Infusion Device into Right Brachial Vein, Percutaneous Approach (ICD-10-PCS; 2025-04-21)
PROC: B54MZZA Ultrasonography of Right Upper Extremity Veins, Guidance (ICD-10-PCS; 2025-04-21)
DX: J15.1 Pneumonia due to Pseudomonas (principal); I50.23 Acute on chronic systolic (congestive) heart failure; J96.20 Acute and chronic respiratory failure, unspecified whether with hypoxia or hypercapnia; E44.0 Moderate protein-calorie malnutrition; I42.0 Dilated cardiomyopathy; I11.0 Hypertensive heart disease with heart failure; Z20.822 Contact with and (suspected) exposure to COVID-19; E03.9 Hypothyroidism, unspecified; F41.9 Anxiety disorder, unspecified; I25.2 Old myocardial infarction; Z95.810 Presence of automatic (implantable) cardiac defibrillator; Z86.73 Personal history of transient ischemic attack (TIA), and cerebral infarction without residual deficits; Z79.899 Other long term (current) drug therapy; Z68.23 Body mass index [BMI] 23.0-23.9, adult
CPT/HCPCS: 36415; 71045; 71275; 80048; 80053; 80162; 80202; 81001; 82565; 82962; 83605; 83735; 83880; 84484; 85025; 85379; 86803; 87040; 87070; 87077; 87081; 87086; 87186; 87205; 87340; 87426; 93005; 94640; 94660; 99291; G0378; J2543

== ENCOUNTER 2025-08-11 12:17 | Inpatient (IN) | payer MEDICARE, MEDICAID ==
[~2025-08-11] VITALS: Ht 162.6 cm; Wt 58.6 kg
[~2025-08-11 12:17] MED LIST changes: +APIX5TAB PO; +EMPA1TAB PO; +FURO20TA4 PO; +LEVO-177 PO; +LEVO500T91 PO; +LORA-1123 PO; +LOS25T PO; +METH-1181 PO; +POTA-228 PO; +ROSU10TA64 PO; +SACU1TAB PO
--- NOTE | 2025-08-11 12:33 | ED.PDOC ---
SOB-HPI HPI Comments This is a 65 year-old female, with a Hx of CHF, Pacemaker, Cardiomyopathy, and HTN, who presents to the ED via EMS with a chief complaint of SOB as of 0500 this morning. Per EMS, patient presented with cyanosis of the lips on scene, with SPO2 at 96%. Patient is on 5L of Oxygen at home. Upon arrival to the ED, patient has bilateral leg swelling with associated SOB. Patient states her EF was last reported to be at 20%. Patient additionally states she was seen in the ED months ago for fluid in her lungs. Patient has no further complaints at this time and otherwise denies chest pain, cough, dizziness, weakness, fatigue, or fever. Chief Complaint: SOB Time Seen by MD: 12:18 Primary Care Provider: maya Liang notes: Fiscal Accountant Notes, Medications, Allergies Information Source: Patient, Emergency Med Personnel Mode of Arrival: EMS Severity: Moderate Timing: Hours Duration: Since onset History of: CHF, Other (per hpi ) Prehospital treatment: Oxygen Associated Signs and Symptoms: Leg Swelling Past Medical History PAST MEDICAL HISTORY: Anxiety, CHF, CVA, HTN, MD, Thyroid Past Medical History (Other): Cardiomyopathy, Pacemaker Surgical History: Pacemaker RESERVOIR ENGINEER History: No Pertinent RESERVOIR ENGINEER History Family History Family History: Family hx of Cancer Social History Smoker: Non-Smoker Alcohol: Denies ETOH Use Drugs: Denies Drug Use Lives In: Home Constitutional: denies: chills, diaphoresis, fatigue, fever, malaise, sweats, weakness, others EENTM: denies: blurred vision, double vision, ear bleeding, ear discharge, ear drainage, ear pain, ear ringing, eye pain, eye redness, hearing loss, mouth pain, mouth swelling, nasal discharge, nose bleeding, nose congestion, nose pain, photophobia, tearing, throat pain, throat swelling, voice changes, others Respiratory: reports: SOB at rest, shortness of breath, SOB with excertion; denies: cough, hemoptysis, orthopnea, stridor, wheezing, others Cardiovascular: denies: chest pain, dizzy spells, diaphoresis, Dyspnea on exertion, edema, irregular heart beat, left arm pain, lightheadedness, palpitations, PND, syncope, others Gastrointestinal: denies: abdomen distended, abdominal pain, blood streaked bowels, constipated, diarrhea, dysphagia, difficulty swallowing, hematemesis, melena, nausea, poor appetite, poor fluid intake, rectal bleeding, rectal pain, vomiting, others Genitourinary: denies: abnormal vagina bleeding, burning, dyspareunia, dysuria, flank pain, frequency, hematuria, incontinence, pain, , vagina discharge, urgency, others Neurological: denies: dizziness, fainting, headache, left sided numbness, left sided weakness, numbness, paresthesia, pre-existing deficit, right sided numbness, right sided weakness, seizure, speech problems, tingling, tremors, weakness, others Musculoskeletal: denies: back pain, gout, joint pain, joint swelling, muscle pain, muscle stiffness, neck pain, others Integumetry: denies: bruises, change in color, change in hair/nails, dryness, laceration, lesions, lumps, rash, wounds, others Allergic/Immunocompromised: denies: Difficulty Healing, Frequent Infections, Hives, Itching, others Hematologic/Lymphatic: denies: anemia, blood clots, easy bleeding, easy bruising, swollen glands, others Endocrine: denies: excessive hunger, excessive sweating, excessive thirst, excessive urination, flushing, intolerance to cold, intolerance to heat, unexplained weight gain, unexplained weight loss, others Psychiatric: denies: anxiety, bipolar disorder, depression, hopeless, panic disorder, schizophrenia, sleepless, suicidal, others All Other Systems: Reviewed and Negative Physical Exam General Appearance: Moderate Distress HEENT: Normal ENT Inspection, Pharynx Normal, TMs Normal Neck: Full Range of Motion, Non-Tender, Normal, Normal Inspection Respiratory: Chest Non-Tender, Lungs Clear, No Accessory Muscle Use, No Respiratory Distress, Normal Breath Sounds Cardiovascular: No Edema, No JVD, No Murmur, No Gallop, Normal Peripheral Pul ses, Regular Rate/Rhythm, Other (AICD to the left chest) Breast Exam: Deferred Gastrointestinal: No Organomegaly, Non Tender, No Pulsatile Mass, Normal Bowel Sounds, Soft Genitalia: Deferred Pelvic: Deferred Rectal: Deferred Extremities: No calf tenderness, Normal capillary refill, Pedal edema Musculoskeletal : Apperance: Normal Neurologic: Alert, mophead trimmer and wrapper II-XII nml as Tested, Motor Weakness, Normal Affect, Normal Mood, No Sensory Deficits Cerebellar Function: Normal Reflexes: Normal Skin: Dry, Pallor, Warm Lymphatic: No Adenopathy Was a procedure done? Was a procedure done?: No Differential Dx Differential Diagnosis: Anxiety, Asthma, CHF, COPD, Myocardial infarction, Sinusitis, Pharyngitis X-Ray, Labs, Meds, VS Vital Signs Date Time Temp Pulse Resp B/P (MAP) Pulse Ox O2 Delivery O2 Flow Rate FiO2 08/11/25 16:38 83 08/11/25 16:10 79 08/11/25 16:00 80 20 113/76 (88) 97 08/11/25 15:42 98.6 80 18 109/77 (88) 97 98.6 08/11/25 15:41 Nasal Cannula* 2 28 08/11/25 12:37 97.9 86 20 122/80 96 97.9 Lab Test 08/11/25 15:51 08/11/25 14:46 08/11/25 13:04 08/11/25 12:14 Range/Units Urine Color Yellow Yellow Urine Clarity Turbid H Clear Urine pH 5.5 5.0-9.0 Urine Specific [place] 1.028 1.001-1.035 Urine Protein 2+ H Negative Urine Ketones Negative Negative Urine Blood 1+ H Negative /uL Urine Nitrite Negative Negative Urine Bilirubin Negative Negative Urine Urobilinogen Normal Negative mg/dL Urine Leukocyte Esterase Negative Negative /uL Urine RBC 2 0 - 4 /hpf Urine Microscopic WBC 1 0-5 /HPF Urine Squamous Epithelial Cells Few <5 /hpf Urine Bacteria None seen None Seen /hpf Urine Hyaline Casts Few 0 - 2 /lpf Urine Granular Casts Few 0 /lpf Urine Mucus Few None Seen Urine Glucose Trace Normal mg/dL Troponin I High Sensitivity 43 *H 40 *H 41 *H </=34 ng/L White Blood Count 5.9 4.4-10.8 10^3/uL Red Blood Count 4.34 4.0-5.20 10^6/uL Hemoglobin 13.2 12.2-16.2 g/dL Hematocrit 40.9 36.0-46.0 % Mean Corpuscular Volume 94.2 80.0-100.0 fL Mean Corpuscular Hemoglobin 30.3 28.0-32.0 pg Mean Corpuscular Hemoglobin Concent 32.2 32.0-36.0 g/dL Red Cell Distribution Width 20.4 H 11.8-14.3 % Platelet Count 198 140-450 10^3/uL Mean Platelet Volume 8.4 6.9-10.8 fL Neutrophils (%) (Auto) 83.2 H 37.0-80.0 % Lymphocytes (%) (Auto) 7.7 L 10.0-50.0 % Monocytes (%) (Auto) 7.4 0.0-12.0 % Eosinophils (%) (Auto) 0.7 0.0-7.0 % Basophils (%) (Auto) 1.0 0.0-2.0 % Neutrophils # (Auto) 4.9 1.6-8.6 10 ^3/uL Lymphocytes # (Auto) 0.5 0.4-5.4 10 ^3/uL Monocytes # (Auto) 0.4 0-1.3 10 ^3/uL Eosinophils # (Auto) 0 0-0.8 10 ^3/uL Basophils # (Auto) 0.1 0-0.2 10 ^3/uL Nucleated Red Blood Cells 0.2 % Sodium Level 135 L 136-145 mmol/L Potassium Level 4.1 3.5-5.1 mmol/L Chloride Level 103 98-107 mmol/L Carbon Dioxide Level 22 20-31 mmol/L Anion Gap 10 5-15 Blood Urea Nitrogen 12 9-23 mg/dL Creatinine 0.95 0.550-1.02 mg/dL Glomerular Filtration Rate Calc 66 >90 mL/min BUN/Creatinine Ratio 12.6 10.0-20.0 Serum Glucose 111 H 74-106 mg/dL Calcium Level 9.2 8.7-10.4 mg/dL B-Type Natriuretic Peptide 3418.99 0-100 pg/mL The patient's CBC is within normal limits The chemistry panel is within normal limits The BNP is elevated at 3418.99 The urine test is negative for infection The 1st troponin level is elevated at 41 and remains elevated up to approximately 43 The chest x-ray shows: IMPRESSION: 1. Findings suggesting congestive failure worse than on previous study with increasing right pleural effusion. 2. Pacemaker is in place not significantly changed. 3. PICC line from right arm in place not significantly changed. The patient was given Lasix 40 mg IV push The patient is being admitted at this time The patient will be admitted to Images Reviewed?: Images reviewed and evaluated by me Time of 1ST Reevaluation: 13:03 Reevaluation 1ST: Unchanged Time of 2ND Reevaluation: 18:21 Reevaluation 2ND: Unchanged Patient Education/Counseling: Diagnosis, Treatment, Prognosis Family Education/Counseling: Diagnosis, Treatment, Prognosis SEPSIS Sepsis Screen Physician Orders Chest Portable (08/11/25 12:30) Heplock Iv (08/11/25 12:30) Pulse Oximetry (08/11/25 12:30) Manager Of Photography (08/11/25 12:30) Blood Pressure (08/11/25 12:30) Electrocardigram (08/11/25 12:30) Electrocardigram (08/11/25 13:30) Electrocardigram (08/11/25 15:30) Vital Signs Date Time Temp Pulse Resp B/P (MAP) Pulse Ox O2 Delivery O2 Flow Rate FiO2 08/11/25 16:38 83 08/11/25 16:10 79 08/11/25 16:00 80 20 113/76 (88) 97 08/11/25 15:42 98.6 80 18 109/77 (88) 97 98.6 08/11/25 15:41 Nasal Cannula* 2 28 08/11/25 12:37 97.9 86 20 122/80 96 97.9 Laboratory Tests Test 08/11/25 12:14 White Blood Count 5.9 10^3/uL (4.4-10.8) Departure 1 Departure Time of Disposition: 18:20 Impression: Primary Impression: Acute on chronic diastolic heart failure Additional Impression: Elevated troponin Disposition: 09 ADMITTED INPATIENT Admit to: [facility] Condition: Fair Critical Care Note Critical Care Time?: Yes (45 min-critical care time only) Stability Stability form required: Yes Unstable for transfer: ICU, CCU, PCU, [facility] (Intensive VS monitoring), ED Physician Assesment (Clinical assesment) Heart Score Heart Score: Heart Score Response (Comments) Value History Slightly Suspicious 0 EKG Normal 0 Age >65 2 Risk Factors >3 or Hx ASHD 2 Troponin 1-2 x's Normal limit 1 Total 5 I personally scribed for CASTILLO CABRERA MD ([email or web address]) on 08/11/25 at 12:33. Electronically submitted by Nayely WilliamsonMETHOD[facility]). CASTILLO CABRERA MD Aug 11, 2025 12:33
[2025-08-11 12:59] LABS: Hematocrit 40.9 % (36.0-46.0); Hemoglobin 13.2 g/dL (12.2-16.2); Mean Corpuscular Hemoglobin 30.3 pg (28.0-32.0); Mean Corpuscular Volume 94.2 fL (80.0-100.0); Nucleated Red Blood Cells % 0.2 %
[2025-08-11 13:13] LABS: Chloride 103 mmol/L (98-107); Potassium 4.1 mmol/L (3.5-5.1)
[2025-08-11 13:14] LABS: Anion Gap 10 (5-15); Carbon Dioxide 22 mmol/L (20-31)
[2025-08-11 13:15] LABS: Calcium 9.2 mg/dL (8.7-10.4)
[2025-08-11 13:20] LABS: BUN/Creatinine Ratio 12.6 (10.0-20.0); Blood Urea Nitrogen 12 mg/dL (9-23)
[2025-08-11 13:42] LABS: Glucose 111 mg/dL (74-106); Sodium 135 mmol/L (136-145)
--- NOTE | 2025-08-11 14:13 | DVH ---
CHEST RADIOGRAPH Indication: sob Technique: Single frontal view of the chest was obtained Comparison: XY CHEST PORTABLE on DOS: 04/23/25, XY CHEST PORTABLE on DOS: 04/20/25, XY CHEST PORTABLE o n DOS: 04/05/25 FINDINGS: Lines and Tubes: AICD pacemaker in place with pulse generator over the left chest. PICC line in place from the right arm Lungs: Bronchovascular markings are prominent with increasing right pleural effusion when compared th e previous study. Pleura: No effusion. No pneumothorax. Cardiomediastinal contours: Cardiac size appears slightly larger than 04/23/2025. Bones: No acute osseous abnormality. IMPRESSION: 1. Findings suggesting congestive failure worse than on previous study with increasing right pleural effusion. 2. Pacemaker is in place not significantly changed. 3. PICC line from right arm in place not significantly changed.
[2025-08-11 16:26] LABS: Urine Protein, UAD 2+ (Negative)
[2025-08-11] MEDS ORDERED: ONDANSETRON HCL 4 MG/2 ML VIAL IV PRN (19:15)
[2025-08-11] MEDS ORDERED: NITROGLYCERIN 0.4 MG SL TAB SL PRN ×2 (19:15)
[2025-08-11] MEDS ORDERED: ACETAMINOPHEN 325 MG TAB PO PRN (19:15)
[2025-08-11] MEDS ORDERED: MORPHINE SULFATE INJ 2 MG/ml SYRG IV PRN ×2 (19:15)
[2025-08-11] MEDS: FUROSEMIDE 40 MG/4 ML VIAL IV ONE ×2 (19:34→19:47)
[2025-08-11 19:35] VITALS: PULSE 78; RESP 30; O2SAT 95
[2025-08-11] MEDS: APIXABAN 5 MG TAB PO SCH (22:00)
[2025-08-11] MEDS: SACUBITRIL-VALSARTAN 24mg/26mg TAB PO SCH (22:00)
[2025-08-11] MEDS ORDERED: APIXABAN 5 MG TAB PO SCH (22:00)
[2025-08-11] MEDS: ATORVASTATIN 20 MG TAB PO SCH (22:00)
--- NOTE | 2025-08-12 00:09 | DVHHP2 ---
History of Present Illness Reason for Visit: Shortness for breath History of Present Illness 65-year-old female presents for evaluation of shortness for breath. Patient presents with a one day history of shortness for breath with associated lower extremity swelling denies chest pain cough or fever. Past Medical History Hypertension, mi, thyroid, CHF Past Surgical History Pacemaker Family History Cancer Smoke: No ALCOHOL: none Drugs: None Lives: with Family Review of Systems Review of Systems Review of systems are currently negative otherwise addressed in HPI. Allergies: Coded Allergies: NO KNOWN ALLERGIES (Unverified , 05/19/21) Medications Current Medications Medications Dose Ordered Sig/Tucker Route Start Time Stop Time Status Last Admin Dose Admin Morphine Sulfate 2 mg Q30M PRN IV 08/11/25 19:15 Nitroglycerin 0.4 mg Q5MINP PRN SL 08/11/25 19:15 Apixaban 5 mg BID PO 08/11/25 22:00 08/11/25 22:00 5 MG Amiodarone HCl 200 mg DAILY PO 08/12/25 10:00 Aspirin 162 mg DAILY PO 08/12/25 10:00 Digoxin 0.125 mg DAILY PO 08/12/25 10:00 Levothyroxine Sodium 112 mcg QAM@0600 PO 08/12/25 06:00 Atorvastatin Calcium 10 mg HS PO 08/11/25 22:00 08/11/25 22:00 10 MG Empaglifozin 10 mg DAILY PO 08/12/25 10:00 Furosemide 20 mg BIDD IV 08/12/25 06:00 Sacubitril/ Valsartan 1 tab BID PO 08/11/25 22:00 08/11/25 22:00 1 TAB Ondansetron HCl 4 mg Q4HP PRN IV 08/11/25 19:15 Acetaminophen 650 mg Q6HP PRN PO 08/11/25 19:15 Exam Vital Signs Vital Signs Date Time Temp Pulse Resp B/P (MAP) Pulse Ox O2 Delivery O2 Flow Rate FiO2 08/11/25 21:30 81 24 94/42 (59) 99 08/11/25 19:35 Nasal Cannula* 4 36 08/11/25 19:30 97.5 97.5 Exam Gen: 65-year-old female in mild distress Skin: Warm, dry, normal color and texture, no rash. HEENT: Normocephalic atraumatic, mucous membranes moist and pink. Neck: Cervical and supraclavicular nodes normal without enlargement, trachea is midline, thyroid gland is normal without masses. Pulmonary: Clear to auscultation and percussion bilaterally. Cardiac: Regular rate and rhythm. No murmur Abdomen: Soft, nontender, nondistended, bowel sounds present all 4 quadrants, no guarding, no rigidity, no organomegaly. Extremities: No cyanosis, clubbing, plus two bilateral pedal edema Neuro: Cranial nerves II through XII grossly intact, normal affect and speech, no focal motor deficits. Labs/Xrays ORDERING PHYSICIAN: KALLIE GLASGOW MD PROCEDURE(s): ECIDC - ECHO 2D MODE CARDIAC DOP REASON: I10,I50.33 ORDER NUMBER(s): [id number], ACCESSION NUMBER(s): [id number] APPROVED REPORT EXAM: Two-dimensional and M-mode echocardiogram with Doppler and color Doppler. DIMENSIONS LVDd 6.8 (3.8-5.7cm) LA (2D) 5.3 (1.9-4.0cm) Aortic Root 3.3 (2.0- 3.7cm) LVDs 6.4 (2.5-4.0cm) LA (MM) (1.9-4.0cm) Aortic Cusp Exc 1.7 (1.5-2.0cm) EF (%) 13.3 (55-70%) Rt. Atrium 5.3 (1.9-4.0cm) Asc. Aorta cm IVSd 1.2 (0.7-1.1cm) RV (D) 4.7 (1.8-2.4cm) PWd 1.2 (0.7-1.1cm) Mitral Valve Mitral Mitral Stenosis E wave 0.51m/s MV Mean GR. mmHg A wave 1.63m/s MV Peak GR. 36mmHg E/A ratio 0.3 2D MVA cm2 DECEL Time 177ms PRESS 1/2 Time ms Aortic Valve Aortic Valve Aortic Stenosis V1 0.40m/s AO Mean GR. 4mmHg V2 1.29m/s AO Peak GR. 7mmHg Pulmonic Valve V2 0.72m/s Tricuspid Valve TR Velocity 2.53m/s RVSP 31mmHg LEFT VENTRICLE The Ejection Fraction is <25%. ATRIA The left atrium is mildly dilated. The right atrium is mildly dilated. MITRAL VALVE MITRAL VALVE CLIP Mitral regurgitation is mild. PULMONIC VALVE The pulmonic valve is not well visualized. TRICUSPID VALVE The tricuspid valve is grossly normal. There is mild tricuspid regurgitation. AORTIC VALVE The aortic valve opens well. There is trace aortic regurgitation. GREAT VESSELS The aortic root is normal size. PERICARDIAL EFFUSION There is no pericardial effusion. Conclusion EF <20% LAE LVE CHELY MILD TR MILD MR SIGNED BY: KALLIE GLASGOW MD SIGNED DATE/TIME: 01/09/25 2345 CC: Labs Test 08/11/25 15:51 08/11/25 14:46 08/11/25 12:14 Range/Units Urine Color Yellow Yellow Urine Clarity Turbid H Clear Urine pH 5.5 5.0-9.0 Urine Specific [place] 1.028 1.001-1.035 Urine Protein 2+ H Negative Urine Ketones Negative Negative Urine Blood 1+ H Negative /uL Urine Nitrite Negative Negative Urine Bilirubin Negative Negative Urine Urobilinogen Normal Negative mg/dL Urine Leukocyte Esterase Negative Negative /uL Urine RBC 2 0 - 4 /hpf Urine Microscopic WBC 1 0-5 /HPF Urine Squamous Epithelial Cells Few <5 /hpf Urine Bacteria None seen None Seen /hpf Urine Hyaline Casts Few 0 - 2 /lpf Urine Granular Casts Few 0 /lpf Urine Mucus Few None Seen Urine Glucose Trace Normal mg/dL Troponin I High Sensitivity 43 *H </=34 ng/L White Blood Count 5.9 4.4-10.8 10^3/uL Red Blood Count 4.34 4.0-5.20 10^6/uL Hemoglobin 13.2 12.2-16.2 g/dL Hematocrit 40.9 36.0-46.0 % Mean Corpuscular Volume 94.2 80.0-100.0 fL Mean Corpuscular Hemoglobin 30.3 28.0-32.0 pg Mean Corpuscular Hemoglobin Concent 32.2 32.0-36.0 g/dL Red Cell Distribution Width 20.4 H 11.8-14.3 % Platelet Count 198 140-450 10^3/uL Mean Platelet Volume 8.4 6.9-10.8 fL Neutrophils (%) (Auto) 83.2 H 37.0-80.0 % Lymphocytes (%) (Auto) 7.7 L 10.0-50.0 % Monocytes (%) (Auto) 7.4 0.0-12.0 % Eosinophils (%) (Auto) 0.7 0.0-7.0 % Basophils (%) (Auto) 1.0 0.0-2.0 % Neutrophils # (Auto) 4.9 1.6-8.6 10 ^3/uL Lymphocytes # (Auto) 0.5 0.4-5.4 10 ^3/uL Monocytes # (Auto) 0.4 0-1.3 10 ^3/uL Eosinophils # (Auto) 0 0-0.8 10 ^3/uL Basophils # (Auto) 0.1 0-0.2 10 ^3/uL Nucleated Red Blood Cells 0.2 % Sodium Level 135 L 136-145 mmol/L Potassium Level 4.1 3.5-5.1 mmol/L Chloride Level 103 98-107 mmol/L Carbon Dioxide Level 22 20-31 mmol/L Anion Gap 10 5-15 Blood Urea Nitrogen 12 9-23 mg/dL Creatinine 0.95 0.550-1.02 mg/dL Glomerular Filtration Rate Calc 66 >90 mL/min BUN/Creatinine Ratio 12.6 10.0-20.0 Serum Glucose 111 H 74-106 mg/dL Calcium Level 9.2 8.7-10.4 mg/dL B-Type Natriuretic Peptide 3418.99 0-100 pg/mL SEPSIS Sepsis Screen Date sepsis recognized/suspect: Aug 11, 2025 Time Sepsis recognized/suspect: 1934 Recent Procedure: No On Antibiotic Therapy: No Respiratory Rate >20: Yes Heart Rate >90: No Temp<36 C (96.8 F) or >38.3 C: No SBP <90 or MAP <65 mmHG: No New Acute Mental Status Change: No Is the patient on CPAP, BIPAP,: No Physician Orders Admit (08/11/25 19:04) Stat Ekg For Chest Pain (08/11/25 19:04) Notify Of Changes From Base (08/11/25 19:04) Executive Director Sheltered Workshop For 24 Hours (08/11/25 19:04) Emergency Dysrhythmia Protocol (08/11/25 19:04) Rhythm Strips Once Every Shift (08/11/25 19:04) Oxygen By Nasal Cannula (08/11/25 19:04) Morphine Sulfate Injection (08/11/25 19:15) Nitroglycerin Sublingual (Ntrostat Subli (08/11/25 19:15) Apixaban (Eliquis) (08/11/25 22:00) Amiodarone Tablet (Cordarone Tablet) (08/12/25 10:00) Aspirin Tablet (08/12/25 10:00) Digoxin Tablet (Lanoxin Tablet) (08/12/25 10:00) Levothyroxine Tablet (Synthroid Tablet) (08/12/25 06:00) Atorvastatin (Lipitor) (08/11/25 22:00) Empagliflozin (Jardiance) (08/12/25 10:00) Furosemide Injection (Lasix Injection) (08/12/25 06:00) Sacubitril-Valsartan (Entresto 24-26 Mg (08/11/25 22:00) Basic Metabolic Panel (08/12/25 04:00) Ondansetron Hcl (Zofran) (08/11/25 19:15) Complete Blood Count (08/12/25 04:00) Cardiac Diet-2gna,Lofat,Lochol (08/12/25 Breakfast) Condition: Fair (08/11/25 19:12) Acetaminophen Tablet (Tylenol Tablet) (08/11/25 19:15) Bedrest With Bathroom Privileg (08/11/25 19:12) Vital Signs Date Time Temp Pulse Resp B/P (MAP) Pulse Ox O2 Delivery O2 Flow Rate FiO2 08/11/25 21:30 81 24 94/42 (59) 99 08/11/25 19:35 78 30 95 Nasal Cannula* 4 36 08/11/25 19:34 117/79 08/11/25 19:30 97.5 78 30 117/79 (92) 94 97.5 08/11/25 16:38 83 08/11/25 16:10 79 Laboratory Tests Test 08/11/25 12:14 White Blood Count 5.9 10^3/uL (4.4-10.8) Medications Medications Dose Ordered Sig/Tucker Route Start Time Stop Time Status Last Admin Dose Admin Apixaban 5 mg BID PO 08/11/25 22:00 08/11/25 22:00 5 MG Atorvastatin Calcium 10 mg HS PO 08/11/25 22:00 08/11/25 22:00 10 MG Furosemide 40 mg ONCE ONCE IV 08/11/25 18:15 08/11/25 18:16 DC 08/11/25 19:34 40 MG Sacubitril/ Valsartan 1 tab BID PO 08/11/25 22:00 08/11/25 22:00 1 TAB Assessment/Plan Assessment/Plan Assessment acute on chronic congestive heart failure Hypertension Status post pacemaker Plan Admit the patient to telemetry to the hospitalist IV Lasix Resume home medications Continue treatment per orders. Plan discussed with: Patient My Orders Orders - SMITHA JOYCE Procedure Category Date Status Time Admit ADMIT 08/11/25 Transmitted 19:04 Stat Ekg For Chest [facility] 08/11/25 In Process Pain 19:04 Notify Md Of Changes [facility] 08/11/25 In Process From Base 19:04 Executive Director Sheltered Workshop For [facility] 08/11/25 In Process 24 Hours 19:04 Emergency Dysrhythmia [facility] 08/11/25 In Process Protocol 19:04 Rhythm Strips Once [facility] 08/11/25 In Process Every Shift 19:04 Oxygen By Nasal RT 08/11/25 Transmitted Cannula 19:04 Morphine Sulfate PHA 08/11/25 In Process Injection 19:15 Nitroglycerin PHA 08/11/25 In Process Sublingual (Ntrostat 19:15 Apixaban (Eliquis) PHA 08/11/25 In Process 22:00 Amiodarone Tablet PHA 08/12/25 In Process (Cordarone Tablet) 10:00 Aspirin Tablet PHA 08/12/25 In Process 10:00 Digoxin Tablet PHA 08/12/25 In Process (Lanoxin Tablet) 10:00 Levothyroxine Tablet PHA 08/12/25 In Process (Synthroid Tablet) 06:00 Atorvastatin (Lipitor) PHA 08/11/25 In Process 22:00 Empagliflozin PHA 08/12/25 In Process (Jardiance) 10:00 Furosemide Injection PHA 08/12/25 In Process (Lasix Injection) 06:00 Sacubitril-Valsartan PHA 08/11/25 In Process (Entresto 24-26 Mg 22:00 Basic Metabolic Panel LAB 08/12/25 Transmitted 04:00 Ondansetron Hcl PHA 08/11/25 In Process (Zofran) 19:15 Complete Blood Count LAB 08/12/25 Transmitted 04:00 Cardiac DIET 08/12/25 Transmitted Diet-2gna,Lofat,Lochol Breakfast Condition: Fair [place] 08/11/25 In Process 19:12 Acetaminophen Tablet PHA 08/11/25 In Process (Tylenol Tablet) 19:15 Bedrest With Bathroom [place] 08/11/25 In Process Privileg 19:12 Date of Service: Aug 11, 2025 Billing Provider: SMITHA JOYCE Common Visit Codes: [id number] INP/OBS CARE (HIGH) SMITHA JOYCE Aug 12, 2025 00:09
[2025-08-12 04:04] LABS: Chloride 104 mmol/L (98-107); Sodium 139 mmol/L (136-145)
[2025-08-12 04:05] LABS: Anion Gap 9 (5-15); Carbon Dioxide 26 mmol/L (20-31)
[2025-08-12 04:10] LABS: BUN/Creatinine Ratio 12.8 (10.0-20.0); Blood Urea Nitrogen 12 mg/dL (9-23); Glucose 99 mg/dL (74-106)
[2025-08-12 04:15] LABS: Calcium 8.6 mg/dL (8.7-10.4); Potassium 3.3 mmol/L (3.5-5.1)
[2025-08-12 04:27] LABS: Hematocrit 34.3 % (36.0-46.0); Hemoglobin 11.3 g/dL (12.2-16.2); Mean Corpuscular Hemoglobin 30.1 pg (28.0-32.0); Mean Corpuscular Volume 91.6 fL (80.0-100.0); Nucleated Red Blood Cells % 0.0 %
[2025-08-12] MEDS: FUROSEMIDE 20 MG/2 ML VIAL IV SCH (06:00)
[2025-08-12] MEDS: LEVOTHYROXINE SODIUM 112 MCG TAB PO SCH (06:42)
[2025-08-12 07:43] VITALS: PULSE 66; RESP 20; O2SAT 96
[2025-08-12] MEDS: DIGOXIN 0.125 MG TAB PO SCH (09:47)
[2025-08-12] MEDS: EMPAGLIFLOZIN 10 MG TAB PO SCH (09:48)
[2025-08-12] MEDS: AMIODARONE HCL 200 MG TAB PO SCH (09:48)
[2025-08-12] MEDS: MIDODRINE HCL 10 MG TAB PO SCH (13:03)
--- NOTE | 2025-08-12 13:36 | DVHPN2 ---
Progress Note - Dictate Date Seen: Aug 11, 2025 Medical Necessity Reason Pt with a Central, PICC or Fol: No Subjective PT WELL KNOWN TO ME WITH ACUTE DECOMPENSATION OF HR HFrEF TRNSPLANT CANDIDATE CALLED BY DR STONE ABOUT HER ADMISSION IN THE ER DILATED CM EF <20% [facility] RESULTS: * Left main, patent. * Left anterior descending artery was patent. * Circumflex was patent. * Right coronary artery was patent. * The patient with dilated cardiomyopathy with EF less than 20% with an LVEDP elevated at 22 mmHg. Left ventricular systolic pressure 110. [facility] LAST YEAR NEGATIVE ACUTE DECOMPENSATION OF HFrEF vital signs Vital Sign Date Time Temp Pulse Resp B/P (MAP) Pulse Ox O2 Delivery O2 Flow Rate FiO2 08/12/25 12:52 68 20 90/56 (67) 95 08/12/25 07:52 97.9 97.9 08/12/25 07:43 Nasal Cannula* 4 36 medications Current Medications Medications Dose Ordered Sig/Tucker Route Start Time Stop Time Status Last Admin Dose Admin Morphine Sulfate 2 mg Q30M PRN IV 08/11/25 19:15 Nitroglycerin 0.4 mg Q5MINP PRN SL 08/11/25 19:15 Apixaban 5 mg BID PO 08/11/25 22:00 08/12/25 09:47 5 MG Amiodarone HCl 200 mg DAILY PO 08/12/25 10:00 08/12/25 09:48 200 MG Aspirin 162 mg DAILY PO 08/12/25 10:00 08/12/25 09:47 162 MG Digoxin 0.125 mg DAILY PO 08/12/25 10:00 08/12/25 09:47 0.125 MG Levothyroxine Sodium 112 mcg QAM@0600 PO 08/12/25 06:00 08/12/25 06:42 112 MCG Atorvastatin Calcium 10 mg HS PO 08/11/25 22:00 08/11/25 22:00 10 MG Empaglifozin 10 mg DAILY PO 08/12/25 10:00 08/12/25 09:48 10 MG Furosemide 20 mg BIDD IV 08/12/25 06:00 Sacubitril/ Valsartan 1 tab BID PO 08/11/25 22:00 08/12/25 09:48 1 TAB Ondansetron HCl 4 mg Q4HP PRN IV 08/11/25 19:15 Acetaminophen 650 mg Q6HP PRN PO 08/11/25 19:15 Midodrine 10 mg TID@0600,1200,1800 PO 08/12/25 12:00 08/12/25 13:03 10 MG laboratory and microbiology Laboratory Tests 08/12/25 03:21 Test 08/12/25 03:21 Range/Units Serum Glucose 99 74-106 mg/dL Problem List ACUTE DECOMPENSATION OF HR HFrEF TRNSPLANT CANDIDATE CALLED BY DR STONE ABOUT HER ADMISSION IN THE ER DILATED CM EF <20% [facility] RESULTS: * Left main, patent. * Left anterior descending artery was patent. * Circumflex was patent. * Right coronary artery was patent. * The patient with dilated cardiomyopathy with EF less than 20% with an LVEDP elevated at 22 mmHg. Left ventricular systolic pressure 110. [facility] LAST YEAR NEGATIVE ACUTE DECOMPENSATION OF HFrEF Assessment/Plan DOBUTAMINE DIURESIS WITH DRIP Plan discussed with: Patient KALLIE GLASGOW MD Aug 12, 2025 13:36
[2025-08-12] MEDS ORDERED: DOBUTamine 1000MCG/ML 250 ML IV SCH (13:45)
[2025-08-12] MEDS ORDERED: FUROSEMIDE INJECTION 100 MG in SODIUM CHL 0.9% 100 ML IV SCH (13:45)
--- NOTE | 2025-08-12 14:16 | DVHPN2 ---
Progress Note Date Seen: Aug 12, 2025 Medical Necessity Reason Pt with a Central, PICC or Fol: No Subjective Patient reports: No new complaints Review of Systems: HEENT:Normal, CVS:Normal, RESPIRATORY:Normal, GI:Normal, :Normal, MSK:Normal, NEURO:Normal Objective vital signs Vital Sign Date Time Temp Pulse Resp B/P (MAP) Pulse Ox O2 Delivery O2 Flow Rate FiO2 08/12/25 12:52 68 20 90/56 (67) 95 08/12/25 07:52 97.9 97.9 08/12/25 07:43 Nasal Cannula* 4 36 medications Current Medications Medications Dose Ordered Sig/Tucker Route Start Time Stop Time Status Last Admin Dose Admin Morphine Sulfate 2 mg Q30M PRN IV 08/11/25 19:15 Nitroglycerin 0.4 mg Q5MINP PRN SL 08/11/25 19:15 Apixaban 5 mg BID PO 08/11/25 22:00 08/12/25 09:47 5 MG Amiodarone HCl 200 mg DAILY PO 08/12/25 10:00 08/12/25 09:48 200 MG Aspirin 162 mg DAILY PO 08/12/25 10:00 08/12/25 09:47 162 MG Digoxin 0.125 mg DAILY PO 08/12/25 10:00 08/12/25 09:47 0.125 MG Levothyroxine Sodium 112 mcg QAM@0600 PO 08/12/25 06:00 08/12/25 06:42 112 MCG Atorvastatin Calcium 10 mg HS PO 08/11/25 22:00 08/11/25 22:00 10 MG Empaglifozin 10 mg DAILY PO 08/12/25 10:00 08/12/25 09:48 10 MG Sacubitril/ Valsartan 1 tab BID PO 08/11/25 22:00 08/12/25 09:48 1 TAB Ondansetron HCl 4 mg Q4HP PRN IV 08/11/25 19:15 Acetaminophen 650 mg Q6HP PRN PO 08/11/25 19:15 Midodrine 10 mg TID@0600,1200,1800 PO 08/12/25 12:00 08/12/25 13:03 10 MG Dobutamine HCl/ Dextrose 250 ml @ 8.85 mls/hr Q24H IV 08/12/25 13:45 UNV Furosemide 100 mg/ Sodium Chloride 110 ml @ 4.4 mls/hr Q24H IV 08/12/25 13:45 UNV Potassium Bicarbonate 50 meq BID PO 08/12/25 22:00 Examination: GENERAL:Normal, HEENT:Normal, NECK:Normal, LUNGS:Normal, LUNGS:Abnormal (on oxygen, rales), CVS:Normal, ABDOMEN:Normal, MSK:Normal, SKIN:Normal, NEURO:Normal, :Normal laboratory and microbiology Laboratory Tests 08/12/25 03:21 Test 08/12/25 03:21 Range/Units Serum Glucose 99 74-106 mg/dL Problem List/Assessment/Plan Problem List/Assessment/Plan * Acute on chronic systolic heart failure: dobutamine, lasix iv * Hypothyroidism: check tsh * History of AICD placement. * Acute and chronic respiratory failure. * Moderate protein malnutrition. advance care planning- full code- time spent 18 mins Plan discussed with: Patient My Orders My Orders Orders - SMITHA ALDRIDGE MD Procedure Category Date Status Time Thyroid Stimulating LAB 08/13/25 Verified Hormone 05:00 Chest Portable XY 08/13/25 Transmitted 06:00 Magnesium LAB 08/13/25 Verified 05:00 Date of Service: Aug 12, 2025 Billing Provider: SMITHA ALDRIDGE MD Common Visit Codes: [id number] INP/OBS CARE(HIGH) Secondary Visit Codes: [id number] CARE PLAN 30 MINUTES SMITHA ALDRIDGE MD Aug 12, 2025 14:16
[2025-08-12] MEDS: MILRINONE 20MG/100ML 100 ML IV SCH (15:08)
[2025-08-12 20:02] VITALS: PULSE 73; RESP 29; O2SAT 93
[2025-08-12 22:39] VITALS: BP 103/66; PULSE 72; RESP 16; O2SAT 98
[2025-08-12] MEDS: POTASSIUM EFFERVESENT TAB 25 MEQ PO SCH (22:48)
[2025-08-13] VITALS (8 sets, daily range): BP systolic 90–110; BP diastolic 59–64; PULSE 64–76; RESP 16–20; TEMP 97–98.2; O2SAT 94–100
[2025-08-13] MEDS: FUROSEMIDE INJECTION 100 MG in SODIUM CHL 0.9% 100 ML IV SCH (00:27)
[2025-08-13] MEDS ORDERED: BUMEX2MG PO (04:51)
--- NOTE | 2025-08-13 05:37 | DVH ---
CHEST RADIOGRAPH Indication: chf Technique: Single frontal view of the chest was obtained COMPARISON: XY CHEST PORTABLE on DOS: 08/11/25, XY CHEST PORTABLE on DOS: 04/23/25, XY CHEST PORTABLE on DOS: 04/20/25, XY CHEST PORTABLE on DOS: 04/05/25, XY CHEST TWO VIEWS ROUTINE on DOS: 03/11/25 FINDINGS: Lines and Tubes: Left chest wall AICD. Right PICC in satisfactory position. Lungs: Increased pulmonary vascular congestion. Pleura: No effusion. No pneumothorax. Cardiomediastinal contours: Cardiomegaly. Bones: Unremarkable. IMPRESSION: Increased pulmonary vascular congestion.
[2025-08-13 06:23] LABS: Chloride 102 mmol/L (98-107); Sodium 140 mmol/L (136-145)
[2025-08-13 06:24] LABS: Anion Gap 8 (5-15); Carbon Dioxide 30 mmol/L (20-31)
[2025-08-13 06:29] LABS: BUN/Creatinine Ratio 14.9 (10.0-20.0); Blood Urea Nitrogen 13 mg/dL (9-23); Glucose 88 mg/dL (74-106)
[2025-08-13 06:30] LABS: Magnesium 1.7 mg/dL (1.6-2.6)
[2025-08-13 06:31] LABS: Calcium 8.5 mg/dL (8.7-10.4); Potassium 3.2 mmol/L (3.5-5.1)
--- NOTE | 2025-08-13 10:11 | DVHPN2 ---
Progress Note Date Seen: Aug 13, 2025 Medical Necessity Reason Pt with a Central, PICC or Fol: No Subjective Patient reports: No new complaints Review of Systems: HEENT:Normal, CVS:Normal, RESPIRATORY:Normal, GI:Normal, :Normal, MSK:Normal, NEURO:Normal Objective vital signs Vital Sign Date Time Temp Pulse Resp B/P (MAP) Pulse Ox O2 Delivery O2 Flow Rate FiO2 08/13/25 08:40 97.0 66 18 92/63 (73) 100 97.0 08/12/25 22:39 Nasal Cannula* 4 36 Total Intake and Output 08/12/25 08/12/25 08/13/25 15:00 23:00 07:00 Intake Total 900 ml Output Total 100 ml Balance -100 ml 900 ml medications Current Medications Medications Dose Ordered Sig/Tucker Route Start Time Stop Time Status Last Admin Dose Admin Morphine Sulfate 2 mg Q30M PRN IV 08/11/25 19:15 Nitroglycerin 0.4 mg Q5MINP PRN SL 08/11/25 19:15 Apixaban 5 mg BID PO 08/11/25 22:00 08/12/25 22:48 5 MG Amiodarone HCl 200 mg DAILY PO 08/12/25 10:00 08/12/25 09:48 200 MG Aspirin 162 mg DAILY PO 08/12/25 10:00 08/12/25 09:47 162 MG Digoxin 0.125 mg DAILY PO 08/12/25 10:00 08/12/25 09:47 0.125 MG Levothyroxine Sodium 112 mcg QAM@0600 PO 08/12/25 06:00 08/13/25 06:01 112 MCG Atorvastatin Calcium 10 mg HS PO 08/11/25 22:00 08/12/25 22:48 10 MG Empaglifozin 10 mg DAILY PO 08/12/25 10:00 08/12/25 09:48 10 MG Sacubitril/ Valsartan 1 tab BID PO 08/11/25 22:00 08/12/25 22:48 1 TAB Ondansetron HCl 4 mg Q4HP PRN IV 08/11/25 19:15 Acetaminophen 650 mg Q6HP PRN PO 08/11/25 19:15 Potassium Bicarbonate 50 meq BID PO 08/12/25 22:00 08/12/25 22:48 50 MEQ Milrinone Lactate 100 ml @ 6.638 mls/ hr Q15H4M IV 08/12/25 14:30 08/12/25 15:08 6.638 MLS/HR Furosemide 100 mg/ Sodium Chloride 110 ml @ 4.4 mls/hr Q24H IV 08/12/25 23:30 08/13/25 00:27 4.4 MLS/HR Examination: GENERAL:Normal, HEENT:Normal, NECK:Normal, LUNGS:Normal, LUNGS:Abnormal (rales+), CVS:Normal, ABDOMEN:Normal, MSK:Normal, SKIN:Normal, NEURO:Normal, :Normal laboratory and microbiology Laboratory Tests 08/13/25 05:42 08/12/25 03:21 Test 08/13/25 05:42 Range/Units Serum Glucose 88 74-106 mg/dL Problem List/Assessment/Plan Problem List/Assessment/Plan * Acute on chronic systolic heart failure: milrinone, lasix iv * Hypothyroidism: check tsh * History of AICD placement. * Acute and chronic respiratory failure. * Moderate protein malnutrition. *dvt: on eliquis, doppler * ?right effusion- thoracentesis advance care planning- full code- time spent 18 mins Plan discussed with: Patient, Daughter My Orders My Orders Orders - SMITHA ALDRIDGE MD Procedure Category Date Status Time Chest Portable XY 08/13/25 Resulted 06:00 Date of Service: Aug 13, 2025 Billing Provider: SMITHA ALDRIDGE MD Common Visit Codes: [id number] INP/OBS CARE(HIGH) Secondary Visit Codes: [id number] CARE PLAN 30 MINUTES SMITHA ALDRIDGE MD Aug 13, 2025 10:11
--- NOTE | 2025-08-13 11:11 | DVH ---
Exam: US CHEST ULTRASOUND Clinical History: EVAL FOR PLEURAL EFFUSION Comparison: US CHEST ULTRASOUND on DOS: 07/06/24, CT CHEST WITHOUT CONTRAST on DOS: 07/06/24, US CHEST UL TRASOUND on DOS: 05/23/24, US CHEST ULTRASOUND on DOS: 02/10/24 Technique: Targeted sonographic evaluation of the soft tissues of the bilateral chest was obtained utilizing gr ayscale and color Doppler imaging. Findings/Impression: There are bilateral pleural effusions which appear moderate in size.
--- NOTE | 2025-08-13 11:13 | DVH ---
Technique: Real-time ultrasound imaging, with color Doppler and compression of the right common femo ral vein, femoral vein, greater saphenous vein, and popliteal vein. Indication: dvt Comparison: US BILAT LOWER DVT on DOS: 04/05/25, US BILAT LOWER DVT on DOS: 08/31/24, LLDVT on DOS: , LT UPPER DVT on DOS: 05/20/21, R VENOUS DVT LTD UNILATERAL on DOS: 01/07/21 Findings: There is normal compressibility and flow augmentation in all of the imaged deep veins. There are no f illing defects. Impression: No evidence of DVT in the right lower extremity
[2025-08-13] MEDS: POTASSIUM CHL 20 Meq TABLET PO SCH (11:50)
[2025-08-13] MEDS: MAGNESIUM SULFATE 1GM/100ML 100 ML IV SCH (11:50)
--- NOTE | 2025-08-13 13:49 | DVHPN2 ---
Progress Note - Dictate Date Seen: Aug 13, 2025 Medical Necessity Reason Pt with a Central, PICC or Fol: No Subjective PT WELL KNOWN TO ME WITH ACUTE DECOMPENSATION OF HR HFrEF TRNSPLANT CANDIDATE CALLED BY DR STONE ABOUT HER ADMISSION IN THE ER DILATED CM EF <20% [facility] RESULTS: * Left main, patent. * Left anterior descending artery was patent. * Circumflex was patent. * Right coronary artery was patent. * The patient with dilated cardiomyopathy with EF less than 20% with an LVEDP elevated at 22 mmHg. Left ventricular systolic pressure 110. [facility] LAST YEAR NEGATIVE ACUTE DECOMPENSATION OF HFrEF vital signs Vital Sign Date Time Temp Pulse Resp B/P (MAP) Pulse Ox O2 Delivery O2 Flow Rate FiO2 08/13/25 12:16 97.0 65 20 93/59 (70) 97 97.0 08/13/25 08:00 Nasal Cannula* 4 36 Total Intake and Output 08/12/25 08/12/25 08/13/25 15:00 23:00 07:00 Intake Total 900 ml Output Total 100 ml Balance -100 ml 900 ml medications Current Medications Medications Dose Ordered Sig/Tucker Route Start Time Stop Time Status Last Admin Dose Admin Morphine Sulfate 2 mg Q30M PRN IV 08/11/25 19:15 Nitroglycerin 0.4 mg Q5MINP PRN SL 08/11/25 19:15 Apixaban 5 mg BID PO 08/11/25 22:00 Hold 08/13/25 10:22 5 MG Amiodarone HCl 200 mg DAILY PO 08/12/25 10:00 08/12/25 09:48 200 MG Aspirin 162 mg DAILY PO 08/12/25 10:00 08/13/25 10:22 162 MG Digoxin 0.125 mg DAILY PO 08/12/25 10:00 08/13/25 10:23 0.125 MG Levothyroxine Sodium 112 mcg QAM@0600 PO 08/12/25 06:00 08/13/25 06:01 112 MCG Atorvastatin Calcium 10 mg HS PO 08/11/25 22:00 08/12/25 22:48 10 MG Empaglifozin 10 mg DAILY PO 08/12/25 10:00 08/13/25 10:22 10 MG Ondansetron HCl 4 mg Q4HP PRN IV 08/11/25 19:15 Acetaminophen 650 mg Q6HP PRN PO 08/11/25 19:15 Milrinone Lactate 100 ml @ 6.638 mls/ hr Q15H4M IV 08/12/25 14:30 08/12/25 15:08 6.638 MLS/HR Furosemide 100 mg/ Sodium Chloride 110 ml @ 4.4 mls/hr Q24H IV 08/12/25 23:30 08/13/25 00:27 4.4 MLS/HR Magnesium Oxide 400 mg DAILY PO 08/14/25 10:00 Potassium Chloride 40 meq BID PO 08/13/25 10:45 08/13/25 11:50 40 MEQ laboratory and microbiology Laboratory Tests 08/13/25 05:42 08/12/25 03:21 Test 08/13/25 05:42 Range/Units Serum Glucose 88 74-106 mg/dL Problem List ACUTE DECOMPENSATION OF HR HFrEF TRNSPLANT CANDIDATE CALLED BY DR STONE ABOUT HER ADMISSION IN THE ER DILATED CM EF <20% [facility] RESULTS: * Left main, patent. * Left anterior descending artery was patent. * Circumflex was patent. * Right coronary artery was patent. * The patient with dilated cardiomyopathy with EF less than 20% with an LVEDP elevated at 22 mmHg. Left ventricular systolic pressure 110. [facility] LAST YEAR NEGATIVE ACUTE DECOMPENSATION OF HFrEF Assessment/Plan MILRINONE DRIP DIURESIS WITH DRIP HOLD ENTRESTO TITRATE SYNTHROID BECAUSE OF AMIODARONE REVIEWED LABS: NA, CL, AND BUN ARE NORMAL Plan discussed with: Patient KALLIE GLASGOW MD Aug 13, 2025 13:49
[2025-08-13] MEDS ORDERED: LEVOTHYROXINE SODIUM 112 MCG TAB PO ONE (14:00)
--- NOTE | 2025-08-13 14:19 | DVHDS2 ---
Discharge Summary Date of Admission Aug 11, 2025 at 19:04 Date of Discharge: Aug 16, 2025 Admitting Diagnosis HFrEF Labs/Diagnostic Data: Laboratory Results Test 08/13/25 05:42 08/12/25 03:21 08/11/25 15:51 08/11/25 14:46 Sodium Level 140 mmol/L (136-145) Potassium Level 3.2 mmol/L (3.5-5.1) Chloride Level 102 mmol/L (98-107) Carbon Dioxide Level 30 mmol/L (20-31) Anion Gap 8 (5-15) Blood Urea Nitrogen 13 mg/dL (9-23) Creatinine 0.87 mg/dL (0.550-1.02) Glomerular Filtration Rate Calc 74 mL/min (>90) BUN/Creatinine Ratio 14.9 (10.0-20.0) Serum Glucose 88 mg/dL (74-106) Calcium Level 8.5 mg/dL (8.7-10.4) Magnesium Level 1.7 mg/dL (1.6-2.6) Thyroid Stimulating Hormone (TSH) 14.67 uIU/mL (0.55-4.78) White Blood Count 4.9 10^3/uL (4.4-10.8) Red Blood Count 3.74 10^6/uL (4.0-5.20) Hemoglobin 11.3 g/dL (12.2-16.2) Hematocrit 34.3 % (36.0-46.0) Mean Corpuscular Volume 91.6 fL (80.0-100.0) Mean Corpuscular Hemoglobin 30.1 pg (28.0-32.0) Mean Corpuscular Hemoglobin Concent 32.9 g/dL (32.0-36.0) Red Cell Distribution Width 19.8 % (11.8-14.3) Platelet Count 178 10^3/uL (140-450) Mean Platelet Volume 8.8 fL (6.9-10.8) Neutrophils (%) (Auto) 77.6 % (37.0-80.0) Lymphocytes (%) (Auto) 8.0 % (10.0-50.0) Monocytes (%) (Auto) 13.1 % (0.0-12.0) Eosinophils (%) (Auto) 0.4 % (0.0-7.0) Basophils (%) (Auto) 0.9 % (0.0-2.0) Neutrophils # (Auto) 3.8 10 ^3/uL (1.6-8.6) Lymphocytes # (Auto) 0.4 10 ^3/uL (0.4-5.4) Monocytes # (Auto) 0.6 10 ^3/uL (0-1.3) Eosinophils # (Auto) 0 10 ^3/uL (0-0.8) Basophils # (Auto) 0 10 ^3/uL (0-0.2) Nucleated Red Blood Cells 0.0 % Urine Color Yellow (Yellow) Urine Clarity Turbid (Clear) Urine pH 5.5 (5.0-9.0) Urine Specific [place] 1.028 (1.001-1.035) Urine Protein 2+ (Negative) Urine Ketones Negative (Negative) Urine Blood 1+ /uL (Negative) Urine Nitrite Negative (Negative) Urine Bilirubin Negative (Negative) Urine Urobilinogen Normal mg/dL (Negative) Urine Leukocyte Esterase Negative /uL (Negative) Urine RBC 2 /hpf (0 - 4) Urine Microscopic WBC 1 /HPF (0-5) Urine Squamous Epithelial Cells Few /hpf (<5) Urine Bacteria None seen /hpf (None Seen) Urine Hyaline Casts Few /lpf (0 - 2) Urine Granular Casts Few /lpf (0) Urine Mucus Few (None Seen) Urine Glucose Trace mg/dL (Normal) Troponin I High Sensitivity 43 ng/L (</=34) Test 08/11/25 12:14 B-Type Natriuretic Peptide 3418.99 pg/mL (0-100) Other Laboratory Tests 08/13/25 05:42 08/12/25 03:21 Brief Hx & Hospital Course: ACUTE DECOMPENSATION OF HR HFrEF TRNSPLANT CANDIDATE CALLED BY DR STONE ABOUT HER ADMISSION IN THE ER DILATED CM EF <20% [facility] RESULTS: * Left main, patent. * Left anterior descending artery was patent. * Circumflex was patent. * Right coronary artery was patent. * The patient with dilated cardiomyopathy with EF less than 20% with an LVEDP elevated at 22 mmHg. Left ventricular systolic pressure 110. [facility] LAST YEAR NEGATIVE ACUTE DECOMPENSATION OF HFrEF SEVERE HYPOTHYOIDISM Assessment/Plan MILRINONE DRIP DIURESIS WITH DRIP HOLD ENTRESTO TITRATE SYNTHROID BECAUSE OF AMIODARONE SYNTROID TO 150 mcg Consults/Reason for consult CARDIOLOGY Operations or Procedures THORACENTESIS Condition at Discharge: Guarded Final Diagnosis/Problems List hfRef acute pleural effusion DCM Discharge Disposition: Home Discharge Instruct/Medications Diet: Cardiac 2g Na,low cholest Activity: Light activity Follow Up/Referral: 1 WEEK Medications: CONT HOME MEDS INCREASE SYNTROID TO 150 mcg QD Scheduled Amiodarone HCl (Amiodarone HCl), 1 TAB PO DAILY, (Reported) Apixaban Base (Eliquis), 1 TAB PO BID, (Reported) Aspirin (Aspirin Low Dose), 81 MG PO DAILY, (Reported) Bumetanide (Bumex), 1 MG PO DAILY, (Reported) Digoxin (Digoxin), 1 TAB PO DAILY, (Reported) Empagliflozin (Jardiance), 1 TAB PO DAILY, (Reported) Furosemide (Furosemide), 1 TAB PO DAILY, (Reported) Levothyroxine Sodium (Levothyroxine Sodium), 1 TAB PO DAILY, (Reported) Lorazepam (Lorazepam), 1 TAB PO TID, (Reported) Losartan Potassium (Losartan Potassium), 12.5 MG PO DAILY, (Reported) Methocarbamol (Methocarbamol), 1 TAB PO DAILY, (Reported) Multiple Vitamin (Multivitamins), 1 TAB PO DAILY, (Reported) Potassium Chloride (Potassium Chloride ER), 1 TAB PO DAILY, (Reported) Rosuvastatin Calcium (Rosuvastatin Calcium), 1 TAB PO DAILY, (Reported) Sacubitril-Valsartan (Entresto 24-26 mg), 1 TAB PO DAILY, (Reported) Spironolactone (Spironolactone), 1 TAB PO DAILY, (Reported) Discharge Statement: "Patient was advised to return to the ER or call 911 if any headaches, dizziness, shortness of breath, chest pain, abdominal pain, bleeding, fevers, or worsening of medical condition. Patient was counseled about treatment plan, medications, possible side effects, patientverbalized understanding. All questions were answered to the best of my ability. This discharge took greater then 30 minutes in planning, reviewing documentation, counseling the patient, and discussing with other team members." ASSESSMENT ASSESSMENT Assessment hfRef acute pleural effusion DCM KALLIE GLASGOW MD Aug 13, 2025 14:19
[2025-08-13 14:47] LABS: INR 1.3 (0.9-1.15); Partial Thromboplastin Time 32.8 SEC (24.5-34.5); Prothrombin Time 13.4 sec (9.3-11.8)
[2025-08-14] VITALS (8 sets, daily range): BP systolic 91–106; BP diastolic 57–68; PULSE 49–76; RESP 17–18; TEMP 96.4–98.8; O2SAT 95–99
[2025-08-14] MEDS: LEVOTHYROXINE SODIUM 50 MCG TAB PO SCH (05:41)
[2025-08-14 07:19] LABS: Anion Gap 10 (5-15); Carbon Dioxide 31 mmol/L (20-31); Sodium 137 mmol/L (136-145)
[2025-08-14 07:25] LABS: BUN/Creatinine Ratio 10.1 (10.0-20.0); Blood Urea Nitrogen 10 mg/dL (9-23); Glucose 82 mg/dL (74-106)
[2025-08-14 07:26] LABS: Magnesium 2.0 mg/dL (1.6-2.6)
[2025-08-14 07:29] LABS: Calcium 8.6 mg/dL (8.7-10.4); Chloride 96 mmol/L (98-107); Potassium 3.5 mmol/L (3.5-5.1)
[2025-08-14] MEDS: MAGNESIUM OXIDE 400 MG TAB PO SCH (09:27)
[2025-08-14] MEDS: FUROSEMIDE INJECTION 10 ML ONE ×2 (09:27→09:28)
--- NOTE | 2025-08-14 10:30 | DVHPN2 ---
Progress Note Date Seen: Aug 14, 2025 Medical Necessity Reason Pt with a Central, PICC or Fol: Yes The following are medically ne: PICC Line Subjective Patient reports: No new complaints Review of Systems: HEENT:Normal, CVS:Normal, RESPIRATORY:Normal, GI:Normal, :Normal, MSK:Normal, NEURO:Normal Objective vital signs Vital Sign Date Time Temp Pulse Resp B/P (MAP) Pulse Ox O2 Delivery O2 Flow Rate FiO2 08/14/25 09:27 71 08/14/25 09:00 98.8 18 106/68 (81) 98 98.8 08/14/25 07:45 Nasal Cannula* 2 28 Total Intake and Output 08/13/25 08/13/25 08/14/25 15:00 23:00 07:00 Intake Total 200 ml 517.1 ml 400 ml Balance 200 ml 517.1 ml 400 ml medications Current Medications Medications Dose Ordered Sig/Tucker Route Start Time Stop Time Status Last Admin Dose Admin Morphine Sulfate 2 mg Q30M PRN IV 08/11/25 19:15 Nitroglycerin 0.4 mg Q5MINP PRN SL 08/11/25 19:15 Apixaban 5 mg BID PO 08/11/25 22:00 Hold 08/13/25 10:22 5 MG Amiodarone HCl 200 mg DAILY PO 08/12/25 10:00 08/14/25 09:27 200 MG Aspirin 162 mg DAILY PO 08/12/25 10:00 08/14/25 09:26 162 MG Digoxin 0.125 mg DAILY PO 08/12/25 10:00 08/14/25 09:27 0.125 MG Atorvastatin Calcium 10 mg HS PO 08/11/25 22:00 08/13/25 21:45 10 MG Empaglifozin 10 mg DAILY PO 08/12/25 10:00 08/14/25 09:27 10 MG Ondansetron HCl 4 mg Q4HP PRN IV 08/11/25 19:15 Acetaminophen 650 mg Q6HP PRN PO 08/11/25 19:15 Milrinone Lactate 100 ml @ 6.638 mls/ hr Q15H4M IV 08/12/25 14:30 08/12/25 15:08 6.638 MLS/HR Furosemide 100 mg/ Sodium Chloride 110 ml @ 4.4 mls/hr Q24H IV 08/12/25 23:30 08/13/25 23:17 4.4 MLS/HR Magnesium Oxide 400 mg DAILY PO 08/14/25 10:00 08/14/25 09:27 400 MG Potassium Chloride 40 meq BID PO 08/13/25 10:45 08/14/25 09:27 40 MEQ Levothyroxine Sodium 150 mcg QAM@0600 PO 08/14/25 06:00 08/14/25 05:41 150 MCG Examination: GENERAL:Normal, HEENT:Normal, NECK:Normal, LUNGS:Normal, CVS:Normal, ABDOMEN:Normal, MSK:Normal, SKIN:Normal, NEURO:Normal, :Normal laboratory and microbiology Laboratory Tests 08/14/25 05:52 08/12/25 03:21 Test 08/14/25 05:52 Range/Units Serum Glucose 82 74-106 mg/dL Problem List/Assessment/Plan Problem List/Assessment/Plan * Acute on chronic systolic heart failure: milrinone, lasix iv * Hypothyroidism: check tsh * History of AICD placement. * Acute and chronic respiratory failure. * Moderate protein malnutrition. *dvt: hold eliquis, doppler * right effusion- thoracentesis advance care planning- full code- time spent 18 mins Plan discussed with: Patient My Orders My Orders Orders - SMITHA ALDRIDGE MD Procedure Category Date Status Time Potassium Er Tablet PHA 08/13/25 In Process (Klor-Con Tablet) 10:45 Chest Ultrasound US 08/13/25 Resulted Obtain Consent For: ORDERS 08/13/25 Transmitted 12:10 Obtain Consent For ANGLE 08/13/25 In Process Anesthesia 12:10 * Radiologist Consult CONS 08/13/25 Transmitted 12:10 Change Picc Dressing ANGLE 08/13/25 In Process Q7 Days 12:26 Communication Order ORDERS 08/13/25 Transmitted 10:05 Date of Service: Aug 14, 2025 Billing Provider: SMITHA ALDRIDGE MD Common Visit Codes: [id number] INP/OBS CARE(HIGH) SMITHA ALDRIDGE MD Aug 14, 2025 10:30
--- NOTE | 2025-08-14 13:04 | DVHPN2 ---
Progress Note - Dictate Date Seen: Aug 14, 2025 Medical Necessity Reason Pt with a Central, PICC or Fol: Yes The following are medically ne: PICC Line Subjective PT WELL KNOWN TO ME WITH ACUTE DECOMPENSATION OF HR HFrEF TRNSPLANT CANDIDATE CALLED BY DR STONE ABOUT HER ADMISSION IN THE ER DILATED CM EF <20% [facility] RESULTS: * Left main, patent. * Left anterior descending artery was patent. * Circumflex was patent. * Right coronary artery was patent. * The patient with dilated cardiomyopathy with EF less than 20% with an LVEDP elevated at 22 mmHg. Left ventricular systolic pressure 110. [facility] LAST YEAR NEGATIVE ACUTE DECOMPENSATION OF HFrEF vital signs Vital Sign Date Time Temp Pulse Resp B/P (MAP) Pulse Ox O2 Delivery O2 Flow Rate FiO2 08/14/25 09:27 71 08/14/25 09:00 98.8 18 106/68 (81) 98 98.8 08/14/25 07:45 Nasal Cannula* 2 28 Total Intake and Output 08/13/25 08/13/25 08/14/25 15:00 23:00 07:00 Intake Total 200 ml 517.1 ml 400 ml Balance 200 ml 517.1 ml 400 ml medications Current Medications Medications Dose Ordered Sig/Tucker Route Start Time Stop Time Status Last Admin Dose Admin Morphine Sulfate 2 mg Q30M PRN IV 08/11/25 19:15 Nitroglycerin 0.4 mg Q5MINP PRN SL 08/11/25 19:15 Apixaban 5 mg BID PO 08/11/25 22:00 Hold 08/13/25 10:22 5 MG Amiodarone HCl 200 mg DAILY PO 08/12/25 10:00 08/14/25 09:27 200 MG Aspirin 162 mg DAILY PO 08/12/25 10:00 08/14/25 09:26 162 MG Digoxin 0.125 mg DAILY PO 08/12/25 10:00 08/14/25 09:27 0.125 MG Atorvastatin Calcium 10 mg HS PO 08/11/25 22:00 08/13/25 21:45 10 MG Empaglifozin 10 mg DAILY PO 08/12/25 10:00 08/14/25 09:27 10 MG Ondansetron HCl 4 mg Q4HP PRN IV 08/11/25 19:15 Acetaminophen 650 mg Q6HP PRN PO 08/11/25 19:15 Milrinone Lactate 100 ml @ 6.638 mls/ hr Q15H4M IV 08/12/25 14:30 08/12/25 15:08 6.638 MLS/HR Furosemide 100 mg/ Sodium Chloride 110 ml @ 4.4 mls/hr Q24H IV 08/12/25 23:30 08/13/25 23:17 4.4 MLS/HR Magnesium Oxide 400 mg DAILY PO 08/14/25 10:00 08/14/25 09:27 400 MG Potassium Chloride 40 meq BID PO 08/13/25 10:45 08/14/25 09:27 40 MEQ Levothyroxine Sodium 150 mcg QAM@0600 PO 08/14/25 06:00 08/14/25 05:41 150 MCG laboratory and microbiology Laboratory Tests 08/14/25 05:52 08/12/25 03:21 Test 08/14/25 05:52 Range/Units Serum Glucose 82 74-106 mg/dL Problem List ACUTE DECOMPENSATION OF HR HFrEF TRNSPLANT CANDIDATE CALLED BY DR STONE ABOUT HER ADMISSION IN THE ER DILATED CM EF <20% [facility] RESULTS: * Left main, patent. * Left anterior descending artery was patent. * Circumflex was patent. * Right coronary artery was patent. * The patient with dilated cardiomyopathy with EF less than 20% with an LVEDP elevated at 22 mmHg. Left ventricular systolic pressure 110. [facility] LAST YEAR NEGATIVE ACUTE DECOMPENSATION OF HFrEF Assessment/Plan MILRINONE DRIP DIURESIS WITH DRIP HOLD ENTRESTO TITRATE SYNTHROID BECAUSE OF AMIODARONE REVIEWED LABS: NA, K, AND BUN ARE NORMAL Plan discussed with: Patient KALLIE GLASGOW MD Aug 14, 2025 13:04
[2025-08-15] VITALS (8 sets, daily range): BP systolic 94–122; BP diastolic 64–80; PULSE 70–85; RESP 17–18; TEMP 97.4–98.1; O2SAT 94–98
--- NOTE | 2025-08-15 07:07 | DVHPN2 ---
Progress Note - Dictate Date Seen: Aug 15, 2025 Medical Necessity Reason Pt with a Central, PICC or Fol: Yes The following are medically ne: PICC Line Subjective PT WELL KNOWN TO ME WITH ACUTE DECOMPENSATION OF HR HFrEF TRNSPLANT CANDIDATE CALLED BY DR STONE ABOUT HER ADMISSION IN THE ER DILATED CM EF <20% [facility] RESULTS: * Left main, patent. * Left anterior descending artery was patent. * Circumflex was patent. * Right coronary artery was patent. * The patient with dilated cardiomyopathy with EF less than 20% with an LVEDP elevated at 22 mmHg. Left ventricular systolic pressure 110. [facility] LAST YEAR NEGATIVE ACUTE DECOMPENSATION OF HFrEF vital signs Vital Sign Date Time Temp Pulse Resp B/P (MAP) Pulse Ox O2 Delivery O2 Flow Rate FiO2 08/15/25 05:00 97.9 70 17 94/64 (74) 97 97.9 08/14/25 20:00 Nasal Cannula* 2 28 Total Intake and Output 08/14/25 08/14/25 08/15/25 15:00 23:00 07:00 Intake Total 30.8 ml 900 ml 500 ml Balance 30.8 ml 900 ml 500 ml medications Current Medications Medications Dose Ordered Sig/Tucker Route Start Time Stop Time Status Last Admin Dose Admin Morphine Sulfate 2 mg Q30M PRN IV 08/11/25 19:15 Nitroglycerin 0.4 mg Q5MINP PRN SL 08/11/25 19:15 Apixaban 5 mg BID PO 08/11/25 22:00 Hold 08/13/25 10:22 5 MG Amiodarone HCl 200 mg DAILY PO 08/12/25 10:00 08/14/25 09:27 200 MG Aspirin 162 mg DAILY PO 08/12/25 10:00 08/14/25 09:26 162 MG Digoxin 0.125 mg DAILY PO 08/12/25 10:00 08/14/25 09:27 0.125 MG Atorvastatin Calcium 10 mg HS PO 08/11/25 22:00 08/14/25 21:06 10 MG Empaglifozin 10 mg DAILY PO 08/12/25 10:00 08/14/25 09:27 10 MG Ondansetron HCl 4 mg Q4HP PRN IV 08/11/25 19:15 Acetaminophen 650 mg Q6HP PRN PO 08/11/25 19:15 Milrinone Lactate 100 ml @ 6.638 mls/ hr Q15H4M IV 08/12/25 14:30 08/12/25 15:08 6.638 MLS/HR Magnesium Oxide 400 mg DAILY PO 08/14/25 10:00 08/14/25 09:27 400 MG Potassium Chloride 40 meq BID PO 08/13/25 10:45 08/14/25 21:07 40 MEQ Levothyroxine Sodium 150 mcg QAM@0600 PO 08/14/25 06:00 08/15/25 06:04 150 MCG laboratory and microbiology Laboratory Tests 08/14/25 05:52 08/12/25 03:21 Test 08/14/25 05:52 Range/Units Serum Glucose 82 74-106 mg/dL Problem List ACUTE DECOMPENSATION OF HR HFrEF TRNSPLANT CANDIDATE CALLED BY DR STONE ABOUT HER ADMISSION IN THE ER DILATED CM EF <20% [facility] RESULTS: * Left main, patent. * Left anterior descending artery was patent. * Circumflex was patent. * Right coronary artery was patent. * The patient with dilated cardiomyopathy with EF less than 20% with an LVEDP elevated at 22 mmHg. Left ventricular systolic pressure 110. [facility] LAST YEAR NEGATIVE ACUTE DECOMPENSATION OF HFrEF Assessment/Plan MILRINONE DRIP DIURESIS WITH DRIP HOLD ENTRESTO TITRATE SYNTHROID BECAUSE OF AMIODARONE AWAITING THORACENTESIS REVIEWED LABS: NA, K, AND CL ARE NORMAL Plan discussed with: Patient KALLIE GLASGOW MD Aug 15, 2025 07:07
[2025-08-15 09:17] LABS: Potassium 4.6 mmol/L (3.5-5.1); Sodium 138 mmol/L (136-145)
[2025-08-15 09:18] LABS: Anion Gap 6 (5-15); Calcium 9.1 mg/dL (8.7-10.4)
[2025-08-15 09:21] LABS: Carbon Dioxide 34 mmol/L (20-31); Chloride 98 mmol/L (98-107)
--- NOTE | 2025-08-15 09:21 | ECG ---
[facility] Test Date: 2025-08-11 Test Time: 16:38:12 Pat Name: ELEAZAR DICKENS Department: [facility] ED Patient ID: [facility]-[id number] Room: 0222T B Gender: F Manager Floor: jae : 1960 Requested By: CASTILLO CABRERA Order Number: [id number] Reading MD: Paulino Purvis Measurements Intervals Alexander Rate: 83 P: 38 AK: 153 QRS: 249 QRSD: 215 T: 81 QT: 514 QTc: 604 Interpretive Statements No further analysis attempted due to paced rhythm Electronically Signed On 08-17-2025 18:38:02 PDT by Paulino Purvis Please click the below link to view image of tracing.
[2025-08-15 09:23] LABS: BUN/Creatinine Ratio 13.8 (10.0-20.0); Blood Urea Nitrogen 12 mg/dL (9-23); Glucose 88 mg/dL (74-106)
--- NOTE | 2025-08-15 10:16 | DVHPN2 ---
Progress Note Date Seen: Aug 15, 2025 Medical Necessity Reason Pt with a Central, PICC or Fol: Yes The following are medically ne: PICC Line Subjective Patient reports: No new complaints Review of Systems: HEENT:Normal, CVS:Normal, RESPIRATORY:Normal, GI:Normal, :Normal, MSK:Normal, NEURO:Normal Objective vital signs Vital Sign Date Time Temp Pulse Resp B/P (MAP) Pulse Ox O2 Delivery O2 Flow Rate FiO2 08/15/25 09:00 98.1 70 18 103/67 (79) 98 98.1 08/14/25 20:00 Nasal Cannula* 2 28 Total Intake and Output 08/14/25 08/14/25 08/15/25 15:00 23:00 07:00 Intake Total 30.8 ml 900 ml 500 ml Balance 30.8 ml 900 ml 500 ml medications Current Medications Medications Dose Ordered Sig/Tucker Route Start Time Stop Time Status Last Admin Dose Admin Morphine Sulfate 2 mg Q30M PRN IV 08/11/25 19:15 Nitroglycerin 0.4 mg Q5MINP PRN SL 08/11/25 19:15 Apixaban 5 mg BID PO 08/11/25 22:00 Hold 08/13/25 10:22 5 MG Amiodarone HCl 200 mg DAILY PO 08/12/25 10:00 08/14/25 09:27 200 MG Aspirin 162 mg DAILY PO 08/12/25 10:00 08/14/25 09:26 162 MG Digoxin 0.125 mg DAILY PO 08/12/25 10:00 08/14/25 09:27 0.125 MG Atorvastatin Calcium 10 mg HS PO 08/11/25 22:00 08/14/25 21:06 10 MG Empaglifozin 10 mg DAILY PO 08/12/25 10:00 08/14/25 09:27 10 MG Ondansetron HCl 4 mg Q4HP PRN IV 08/11/25 19:15 Acetaminophen 650 mg Q6HP PRN PO 08/11/25 19:15 Milrinone Lactate 100 ml @ 6.638 mls/ hr Q15H4M IV 08/12/25 14:30 08/12/25 15:08 6.638 MLS/HR Magnesium Oxide 400 mg DAILY PO 08/14/25 10:00 08/14/25 09:27 400 MG Potassium Chloride 40 meq BID PO 08/13/25 10:45 08/14/25 21:07 40 MEQ Levothyroxine Sodium 150 mcg QAM@0600 PO 08/14/25 06:00 08/15/25 06:04 150 MCG Examination: GENERAL:Normal, HEENT:Normal, NECK:Normal, LUNGS:Normal, CVS:Normal, ABDOMEN:Normal, MSK:Normal, SKIN:Normal, NEURO:Normal, :Normal laboratory and microbiology Laboratory Tests 08/15/25 08:09 08/12/25 03:21 Test 08/15/25 08:09 Range/Units Serum Glucose 88 74-106 mg/dL Problem List/Assessment/Plan Problem List/Assessment/Plan * Acute on chronic systolic heart failure: milrinone, lasix iv * Hypothyroidism: check tsh * History of AICD placement. * Acute and chronic respiratory failure. * Moderate protein malnutrition. *dvt: hold eliquis, doppler * right effusion- thoracentesis today advance care planning- full code- time spent 18 mins Plan discussed with: Patient My Orders My Orders Orders - SMITHA ALDRIDGE MD Procedure Category Date Status Time Discharge DISCHARGE 08/14/25 Transmitted 10:28 Date of Service: Aug 15, 2025 Billing Provider: SMITHA ALDRIDGE MD Common Visit Codes: [id number] INP/OBS CARE(HIGH) SMITHA ALDRIDGE MD Aug 15, 2025 10:16
--- NOTE | 2025-08-15 14:51 | DVH ---
CHEST RADIOGRAPH Indication: POST THORACENTESIS Technique: Single frontal view of the chest was obtained Comparison: XY CHEST PORTABLE on DOS: 08/13/25, XY CHEST PORTABLE on DOS: 08/11/25, XY CHEST PORTABLE on DOS: 04/23/25 FINDINGS: Lines and Tubes: Pacemaker in place. PICC line from right arm in place unchanged. Lungs: No focal consolidation. Pleura: Right pleural effusion appears to have been removed and there is no pneumothorax Cardiomediastinal contours: Unremarkable Bones: No acute osseous abnormality. IMPRESSION: 1. Right pleural effusion appears removed. 2. No pneumothorax. 3. PICC line in the right arm and pacemaker in place unchanged.
--- NOTE | 2025-08-15 14:56 | DVH ---
PROCEDURE: ULTRASOUND GUIDED THORACENTESIS USING TEMPORARY CATHETER HISTORY: right effusion DOCUMENTATION: Informed consent was obtained and a procedural time out was performed. FINDINGS: The risks and benefits of the procedure including bleeding, infection and pneumothorax were explained to the patient and written informed consent obtained. Optimal site for puncture long the right posterior chest wall was determined using real-time ultrasou nd and the region sterilized. Local anesthesia was instilled. A 5 lao catheter was then advanced into the pleural space and 0.8 liters of davey colored fluid w as removed. The patient tolerated the procedure well. IMPRESSION: 1. Ultrasound guided right thoracentesis.
[2025-08-16 01:00] VITALS: BP 99/65; PULSE 81; RESP 17; TEMP 97.5; O2SAT 92
[2025-08-16 05:00] VITALS: BP 108/69; PULSE 72; RESP 17; TEMP 97.8; O2SAT 99
[2025-08-16 06:52] LABS: Anion Gap 8 (5-15); Carbon Dioxide 29 mmol/L (20-31); Chloride 101 mmol/L (98-107); Potassium 4.8 mmol/L (3.5-5.1); Sodium 138 mmol/L (136-145)
[2025-08-16 06:53] LABS: Calcium 9.2 mg/dL (8.7-10.4)
[2025-08-16 06:58] LABS: BUN/Creatinine Ratio 14.9 (10.0-20.0); Blood Urea Nitrogen 13 mg/dL (9-23); Glucose 89 mg/dL (74-106)
[2025-08-16 08:00] VITALS: PULSE 72
[2025-08-16 08:43] VITALS: BP 105/66; PULSE 69; RESP 16; TEMP 97.4; O2SAT 95
--- NOTE | 2025-08-16 09:36 | DVHPN2 ---
Progress Note - Dictate Date Seen: Aug 16, 2025 Medical Necessity Reason Pt with a Central, PICC or Fol: Yes The following are medically ne: PICC Line Subjective PT WELL KNOWN TO ME WITH ACUTE DECOMPENSATION OF HR HFrEF TRNSPLANT CANDIDATE CALLED BY DR STONE ABOUT HER ADMISSION IN THE ER DILATED CM EF <20% [facility] RESULTS: * Left main, patent. * Left anterior descending artery was patent. * Circumflex was patent. * Right coronary artery was patent. * The patient with dilated cardiomyopathy with EF less than 20% with an LVEDP elevated at 22 mmHg. Left ventricular systolic pressure 110. [facility] LAST YEAR NEGATIVE ACUTE DECOMPENSATION OF HFrEF vital signs Vital Sign Date Time Temp Pulse Resp B/P (MAP) Pulse Ox O2 Delivery O2 Flow Rate FiO2 08/16/25 08:43 97.4 69 16 105/66 (79) 95 97.4 08/16/25 07:30 Nasal Cannula* 1 24 Total Intake and Output 08/15/25 08/15/25 08/16/25 15:00 23:00 07:00 Intake Total 500 ml 700 ml Balance 500 ml 700 ml medications Current Medications Medications Dose Ordered Sig/Tucker Route Start Time Stop Time Status Last Admin Dose Admin Morphine Sulfate 2 mg Q30M PRN IV 08/11/25 19:15 Nitroglycerin 0.4 mg Q5MINP PRN SL 08/11/25 19:15 Apixaban 5 mg BID PO 08/11/25 22:00 Hold 08/13/25 10:22 5 MG Amiodarone HCl 200 mg DAILY PO 08/12/25 10:00 08/15/25 10:24 200 MG Aspirin 162 mg DAILY PO 08/12/25 10:00 08/14/25 09:26 162 MG Digoxin 0.125 mg DAILY PO 08/12/25 10:00 08/15/25 10:24 0.125 MG Atorvastatin Calcium 10 mg HS PO 08/11/25 22:00 08/15/25 21:58 10 MG Empaglifozin 10 mg DAILY PO 08/12/25 10:00 08/15/25 10:24 10 MG Ondansetron HCl 4 mg Q4HP PRN IV 08/11/25 19:15 Acetaminophen 650 mg Q6HP PRN PO 08/11/25 19:15 Milrinone Lactate 100 ml @ 6.638 mls/ hr Q15H4M IV 08/12/25 14:30 08/12/25 15:08 6.638 MLS/HR Magnesium Oxide 400 mg DAILY PO 08/14/25 10:00 08/15/25 10:24 400 MG Potassium Chloride 40 meq BID PO 08/13/25 10:45 08/15/25 21:58 40 MEQ Levothyroxine Sodium 150 mcg QAM@0600 PO 08/14/25 06:00 08/16/25 05:19 150 MCG laboratory and microbiology Laboratory Tests 08/16/25 06:11 08/12/25 03:21 Test 08/16/25 06:11 Range/Units Serum Glucose 89 74-106 mg/dL Problem List ACUTE DECOMPENSATION OF HR HFrEF TRNSPLANT CANDIDATE CALLED BY DR STONE ABOUT HER ADMISSION IN THE ER DILATED CM EF <20% [facility] RESULTS: * Left main, patent. * Left anterior descending artery was patent. * Circumflex was patent. * Right coronary artery was patent. * The patient with dilated cardiomyopathy with EF less than 20% with an LVEDP elevated at 22 mmHg. Left ventricular systolic pressure 110. [facility] LAST YEAR NEGATIVE ACUTE DECOMPENSATION OF HFrEF Assessment/Plan MILRINONE DRIP DIURESIS WITH DRIP HOLD ENTRESTO TITRATE SYNTHROID BECAUSE OF AMIODARONE S/P THORACENTESIS 800CC OF TRANSUDATIVE FLUID REMOVED Plan discussed with: Patient, Spouse KALLIE GLASGOW MD Aug 16, 2025 09:35
--- NOTE | 2025-08-16 12:17 | DVHPN2 ---
Subjective Patient denies any symptoms Reviewed: Care Plan, H&P, Labs, Medications Changes from previous H/P or p: No Changes General: Per HPI Objective Vitals Vital Signs Date Time Temp Pulse Resp B/P (MAP) Pulse Ox O2 Delivery O2 Flow Rate FiO2 08/16/25 09:49 64 08/16/25 08:43 97.4 16 105/66 (79) 95 97.4 08/16/25 07:30 Nasal Cannula* 1 24 Intake/Output Intake and Output 08/16/25 07:00 Intake Total 1200 ml Balance 1200 ml Intake Oral 1200 ml # Voids 4 # Bowel Movements 2 General Appearance: Alert, Oriented X3, Cooperative, No acute distress HEENT: Atraumatic, PERRLA Lungs: Clear to auscultation, Normal air movement Cardiovascular: Normal S1, Normal S2 Abdomen: Normal bowel sounds, Soft, No tenderness, No hepatospenomegaly, No masses Musculoskeletal: Normal sensory function, Normal motor function Neuro: Normal speech Skin: Dry, Intact Psych/Mental Status: Mental status NL, Mood NL Medications Current Medications Medications Dose Ordered Sig/Tucker Route Start Time Stop Time Status Last Admin Dose Admin Morphine Sulfate 2 mg Q30M PRN IV 08/11/25 19:15 Nitroglycerin 0.4 mg Q5MINP PRN SL 08/11/25 19:15 Apixaban 5 mg BID PO 08/11/25 22:00 Hold 08/13/25 10:22 5 MG Amiodarone HCl 200 mg DAILY PO 08/12/25 10:00 08/16/25 09:49 200 MG Aspirin 162 mg DAILY PO 08/12/25 10:00 08/16/25 09:55 162 MG Digoxin 0.125 mg DAILY PO 08/12/25 10:00 08/16/25 09:49 0.125 MG Atorvastatin Calcium 10 mg HS PO 08/11/25 22:00 08/15/25 21:58 10 MG Empaglifozin 10 mg DAILY PO 08/12/25 10:00 08/16/25 09:48 10 MG Ondansetron HCl 4 mg Q4HP PRN IV 08/11/25 19:15 Acetaminophen 650 mg Q6HP PRN PO 08/11/25 19:15 Milrinone Lactate 100 ml @ 6.638 mls/ hr Q15H4M IV 08/12/25 14:30 08/12/25 15:08 6.638 MLS/HR Magnesium Oxide 400 mg DAILY PO 08/14/25 10:00 08/15/25 10:24 400 MG Potassium Chloride 40 meq BID PO 08/13/25 10:45 08/15/25 21:58 40 MEQ Levothyroxine Sodium 150 mcg QAM@0600 PO 08/14/25 06:00 08/16/25 05:19 150 MCG Laboratory Results Laboratory Tests 08/12/25 03:21 08/16/25 06:11 Chemistry Test 08/16/25 06:11 Calcium Level 9.2 mg/dL (8.7-10.4) Urinalysis Test 08/11/25 15:51 Urine Color Yellow (Yellow) Urine Clarity Turbid (Clear) H Urine pH 5.5 (5.0-9.0) Urine Specific [place] 1.028 (1.001-1.035) Urine Protein 2+ (Negative) H Urine Ketones Negative (Negative) Urine Blood 1+ /uL (Negative) H Urine Nitrite Negative (Negative) Urine Bilirubin Negative (Negative) Urine Urobilinogen Normal mg/dL (Negative) Urine Leukocyte Esterase Negative /uL (Negative) Urine RBC 2 /hpf (0 - 4) Urine Microscopic WBC 1 /HPF (0-5) Urine Squamous Epithelial Cells Few /hpf (<5) Urine Bacteria None seen /hpf (None Seen) Urine Hyaline Casts Few /lpf (0 - 2) Urine Granular Casts Few /lpf (0) Urine Mucus Few (None Seen) Urine Glucose Trace mg/dL (Normal) Microbiology Microbiology Date/Time Source Procedure Growth Status 08/15/25 14:40 Pleural Fluid Gram Stain Pending Resulted 08/15/25 14:40 Pleural Fluid Aerobic Culture - Preliminary Resulted Labs and/or images reviewed: Labs reviewed by me, Image(s) reviewed by me Assessment/Plan Assessment/Plan Impression: -acute on chronic systolic heart failure -hypothyroidism -right pleural effusion -DVT -acute on chronic hypoxic respiratory failure Plan: -patient on continuous Milrinone infusion, continue at time of discharge -status post right thoracentesis. -oxygen weaned off -plans for discharge today and follow up with PCP, Dr. Grove in one week Total time spent with patient discussing and formulating plan of care: 35 minutes. This medical document was created using an electronic medical record system with Dragon computerized dictation system. Although this document has been carefully reviewed, there may still be some phonetic and typographical errors. These areas are purely typographical due to imperfections of the software programs, and do not reflect any compromise in the patient's medical care. Plan discussed with: Patient, Other Date of Service: Aug 16, 2025 Billing Provider: SRIRAM BATES NP Common Visit Codes: [id number] INP/OBS CARE(HIGH) SRIRAM BATES NP Aug 16, 2025 12:17
[2025-08-16 13:00] VITALS: BP 108/62; PULSE 71; RESP 18; TEMP 97.6; O2SAT 93
[2025-08-16 13:07] LABS: Glucose, Body Fluid 104.0 mg/dL (.); LD, Body Fluid 112.0 IU/L (.)
== END 2025-08-16 16:35 | disposition home health service (06) | DRG 291 ==
LOC: ER 12:17 → EDBD 12:17 → OVERFLOW 19:04 → ER 19:04 → TELE-CENTR 08-12 22:16
PROVIDERS: ADMIT Nurse Practitioner Acute Care; ATTEND Nurse Practitioner Acute Care
PROC: 0W993ZZ Drainage of Right Pleural Cavity, Percutaneous Approach (ICD-10-PCS; principal; 2025-08-15)
DX: I11.0 Hypertensive heart disease with heart failure (principal); I50.23 Acute on chronic systolic (congestive) heart failure; J96.21 Acute and chronic respiratory failure with hypoxia; E44.0 Moderate protein-calorie malnutrition; J91.8 Pleural effusion in other conditions classified elsewhere; F41.9 Anxiety disorder, unspecified; I42.0 Dilated cardiomyopathy; E03.9 Hypothyroidism, unspecified; Z95.0 Presence of cardiac pacemaker; Z68.22 Body mass index [BMI] 22.0-22.9, adult; Z86.73 Personal history of transient ischemic attack (TIA), and cerebral infarction without residual deficits; Z79.899 Other long term (current) drug therapy
CPT/HCPCS: 32555; 36415; 71045; 76604; 76942; 80048; 81001; 83735; 83880; 83986; 84443; 84484; 85025; 85610; 85730; 87070; 87205; 89051; 93005; 93971; 96374; 99291; G0378

== ENCOUNTER 2025-09-11 10:33 | Outpatient (CLI) | payer MEDICARE, MEDICAID ==
[2025-09-11 10:00] VITALS: BP 115/75; PULSE 76; RESP 20; O2SAT 98
[2025-09-11] MEDS: BUMETANIDE 2.5mg/10ml (0.25 mg/ml) INJ IV ONE (10:28)
[2025-09-11] MEDS: POTASSIUM CHL 20 Meq TABLET PO ONE (10:30)
[~2025-09-11 10:33] MED LIST changes: +BUMEX2MG PO; -LEVO112T4 PO; -LEVO500T91 PO; -RIME75TA PO
[2025-09-11 11:21] VITALS: BP 105/74; PULSE 83; RESP 20; O2SAT 98
[2025-09-11] MEDS: POTASSIUM CHL 10 Meq TABLET PO ONE (11:28)
[2025-09-11] MEDS: BUMETANIDE INJECTION 10 ML ONE (11:29)
[2025-09-11] MEDS: ADENOSINE 90 MG/30 ML INJ IV ONE (13:01)
== END 2025-09-11 17:00 | disposition home or self-care (01) ==
LOC: CHF HDHVI 10:33
PROVIDERS: ATTEND Internal Medicine Cardiovascular Disease
DX: I11.0 Hypertensive heart disease with heart failure (principal); I50.23 Acute on chronic systolic (congestive) heart failure; R60.9 Edema, unspecified; R06.02 Shortness of breath; F41.9 Anxiety disorder, unspecified; E03.9 Hypothyroidism, unspecified; Z79.899 Other long term (current) drug therapy; Z86.73 Personal history of transient ischemic attack (TIA), and cerebral infarction without residual deficits; Z95.0 Presence of cardiac pacemaker
CPT/HCPCS: 96374; G0463; J0153

== ENCOUNTER 2025-09-14 11:30 | Inpatient (IN) | payer MEDICARE, MEDICAID ==
[~2025-09-14] VITALS: Ht 160 cm; Wt 65.8 kg
--- NOTE | 2025-09-14 12:30 | DVH ---
CLINICAL HISTORY: sob TECHNIQUE: Single view of the chest was obtained. COMPARISON: XY CHEST PORTABLE on DOS: 08/15/25, XY CHEST PORTABLE on DOS: 08/13/25, XY CHEST PORTABLE on DOS: 08/11/25, XY CHEST PORTABLE on DOS: 04/23/25, XY CHEST PORTABLE on DOS: 04/20/25 FINDINGS: Noted left chest wall pacing device. A right PICC terminates at the cavoatrial junction The heart size is moderately enlarged with pulmonary vascular congestion. There are bibasilar opacities. IMPRESSION: Pulmonary vascular congestion. Bibasilar opacities, likely small pleural effusions and atelectasis
[2025-09-14 12:35] VITALS: PULSE 81; RESP 30; O2SAT 94
[2025-09-14 13:40] LABS: Hematocrit 38.6 % (36.0-46.0); Hemoglobin 12.6 g/dL (12.2-16.2); Mean Corpuscular Hemoglobin 29.4 pg (28.0-32.0); Mean Corpuscular Volume 90.3 fL (80.0-100.0); Nucleated Red Blood Cells % 0.0 %
[2025-09-14 13:46] LABS: Anion Gap 10 (5-15); Carbon Dioxide 29 mmol/L (20-31); Potassium 4.2 mmol/L (3.5-5.1)
[2025-09-14 13:48] LABS: Calcium 9.4 mg/dL (8.7-10.4)
[2025-09-14 13:52] LABS: BUN/Creatinine Ratio 15.9 (10.0-20.0); Blood Urea Nitrogen 14 mg/dL (9-23); Glucose 105 mg/dL (74-106)
[2025-09-14 13:55] LABS: Chloride 95 mmol/L (98-107); Sodium 134 mmol/L (136-145)
--- NOTE | 2025-09-14 14:40 | ED.PDOC ---
History of Present Illness HPI Comments 65-year-old female brought in by ambulance with prior medical history who anxiety, CHF (EF 20%), CVA, hypertension, [place], thyroid: Surgical history of cardiomyopathy, pacemaker in the chief complaint of shortness of breath. Patient reports having had shortness of breath status post taking off home O2 for 1 hour and walk outside for which the patient has started to have shortness of breath and prompted her to call 911. Denies any other symptoms at this time. Denies chills, fever, N/V/D, CP. No other associated symptoms, modifiers, recent injuries or sick contacts present at this time. Chief Complaint: Shortness of Breath Time Seen by MD: 13:25 Primary Care Provider: maya Reviewed Notes: Nurses Notes, [employer] Notes, Medications, Allergies Allergies: Coded Allergies: NO KNOWN ALLERGIES (Unverified , 05/19/21) Home Meds Reported Medications Bumetanide (Bumex) 2 Mg Tab, 1 MG PO DAILY 08/13/25 Apixaban Base (ELIQUIS) 5 Mg Tab, 1 TAB PO BID for 90 Days, #180 08/12/25 Sacubitril-Valsartan (Entresto 24-26 mg) 1 Tab Tab, 1 TAB PO DAILY for 90 Days, #90 08/12/25 Levothyroxine Sodium (Levothyroxine Sodium) 88 Mcg Tab, 1 TAB PO DAILY for 90 Days, #90 08/12/25 Furosemide (Furosemide) 20 Mg Tab, 1 TAB PO DAILY for 30 Days, #30 08/12/25 Empagliflozin (Jardiance) 10 Mg Tab, 1 TAB PO DAILY for 30 Days, #30 08/12/25 Rosuvastatin Calcium (Rosuvastatin Calcium) 10 Mg Tab, 1 TAB PO DAILY for 90 Days, #90 08/12/25 Potassium Chloride (Potassium Chloride ER) 10 Meq Tab, 1 TAB PO DAILY for 30 Days, #30 08/12/25 Lorazepam (Lorazepam) 1 Mg Tab, 1 TAB PO TID for 30 Days, #90 08/12/25 Methocarbamol (Methocarbamol) 500 Mg Tab, 1 TAB PO DAILY for 30 Days, #30 08/12/25 Losartan Potassium (Losartan Potassium) 25 Mg Tab, 12.5 MG PO DAILY for 90 Days, #45 08/12/25 Amiodarone HCl (Amiodarone HCl) 200 Mg Tab, 1 TAB PO DAILY for 90 Days, #90 04/05/25 Multiple Vitamin (Multivitamins) Tab, 1 TAB PO DAILY, #30 TAB 2 Refills 03/11/25 Aspirin (Aspirin Low Dose) 81 Mg Chw, 81 MG PO DAILY, TAB.CHEW 03/11/25 Digoxin (Digoxin) 125 Mcg Tab, 1 TAB PO DAILY for 90 Days, #90 03/11/25 Spironolactone (Spironolactone) 25 Mg Tab, 1 TAB PO DAILY for 30 Days, #30 03/11/25 Information Source: Patient Mode of Arrival: EMS Severity: Moderate Timing: Minutes Duration: Since onset, Minutes Prehospital treatment: None Past Medical History PAST MEDICAL HISTORY: Anxiety, CHF (EF 20%), CVA, HTN, [place], Thyroid Surgical History: Pacemaker Surgical History (Other): Cardiomyopathy APPLIED MATHEMATICIAN History: No Pertinent APPLIED MATHEMATICIAN History Family History Family History: Reviewed,noncontributory to illness, Unknown Social History Smoker: Non-Smoker Alcohol: Denies ETOH Use Drugs: Denies Drug Use Lives In: Home Constitutional: denies: chills, diaphoresis, fatigue, fever, malaise, sweats, weakness, others EENTM: denies: blurred vision, double vision, ear bleeding, ear discharge, ear drainage, ear pain, ear ringing, eye pain, eye redness, hearing loss, mouth pain, mouth swelling, nasal discharge, nose bleeding, nose congestion, nose pain, photophobia, tearing, throat pain, throat swelling, voice changes, others Respiratory: reports: shortness of breath, SOB with excertion; denies: cough, hemoptysis, orthopnea, SOB at rest, stridor, wheezing, others Cardiovascular: denies: chest pain, dizzy spells, diaphoresis, Dyspnea on exertion, edema, irregular heart beat, left arm pain, lightheadedness, palpitations, PND, syncope, others Gastrointestinal: denies: abdomen distended, abdominal pain, blood streaked bowels, constipated, diarrhea, dysphagia, difficulty swallowing, hematemesis, melena, nausea, poor appetite, poor fluid intake, rectal bleeding, rectal pain, vomiting, others Genitourinary: denies: abnormal vagina bleeding, burning, dyspareunia, dysuria, flank pain, frequency, hematuria, incontinence, pain, , vagina discharge, urgency, others Neurological: denies: dizziness, fainting, headache, left sided numbness, left sided weakness, numbness, paresthesia, pre-existing deficit, right sided numbness, right sided weakness, seizure, speech problems, tingling, tremors, weakness, others Musculoskeletal: denies: back pain, gout, joint pain, joint swelling, muscle pain, muscle stiffness, neck pain, others Integumetry: denies: bruises, change in color, change in hair/nails, dryness, laceration, lesions, lumps, rash, wounds, others Allergic/Immunocompromised: denies: Difficulty Healing, Frequent Infections, Hives, Itching, others Hematologic/Lymphatic: denies: anemia, blood clots, easy bleeding, easy bruising, swollen glands, others Endocrine: denies: excessive hunger, excessive sweating, excessive thirst, excessive urination, flushing, intolerance to cold, intolerance to heat, unexpl ained weight gain, unexplained weight loss, others Psychiatric: denies: anxiety, bipolar disorder, depression, hopeless, panic disorder, schizophrenia, sleepless, suicidal, others All Other Systems: Reviewed and Negative Physical Exam Exam Comments You have neck, shortness of breath, bilateral wheeze General Appearance: No Apparent Distress, Normal HEENT: Normal ENT Inspection, Pharynx Normal, TMs Normal Neck: Full Range of Motion, Non-Tender, Normal, Normal Inspection Respiratory: Chest Non-Tender, Lungs Clear, No Accessory Muscle Use, No Respiratory Distress, Normal Breath Sounds Cardiovascular: No Edema, No JVD, No Murmur, No Gallop, Normal Peripheral Pulses, Regular Rate/Rhythm Breast Exam: Deferred Gastrointestinal: No Organomegaly, Non Tender, No Pulsatile Mass, Normal Bowel Sounds, Soft Genitalia: Deferred Pelvic: Deferred Rectal: Deferred Extremities: No calf tenderness, Normal capillary refill, Normal inspection, Normal range of motion, Non-tender, No pedal edema Musculoskeletal : Apperance: Normal Neurologic: 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 Was a procedure done?: No Differential Dx Considerations may include: See MDM X-Ray, Labs, Meds, VS Vital Signs Date Time Temp Pulse Resp B/P (MAP) Pulse Ox O2 Delivery O2 Flow Rate FiO2 09/14/25 12:39 98.3 80 32 131/72 99 98.3 09/14/25 12:11 79 Lab Test 09/14/25 14:41 09/14/25 12:57 Range/Units Troponin I High Sensitivity 44 *H 40 *H </=34 ng/L White Blood Count 6.6 4.4-10.8 10^3/uL Red Blood Count 4.27 4.0-5.20 10^6/uL Hemoglobin 12.6 12.2-16.2 g/dL Hematocrit 38.6 36.0-46.0 % Mean Corpuscular Volume 90.3 80.0-100.0 fL Mean Corpuscular Hemoglobin 29.4 28.0-32.0 pg Mean Corpuscular Hemoglobin Concent 32.6 32.0-36.0 g/dL Red Cell Distribution Width 18.1 H 11.8-14.3 % Platelet Count 234 140-450 10^3/uL Mean Platelet Volume 9.0 6.9-10.8 fL Neutrophils (%) (Auto) 85.7 H 37.0-80.0 % Lymphocytes (%) (Auto) 5.5 L 10.0-50.0 % Monocytes (%) (Auto) 8.0 0.0-12.0 % Eosinophils (%) (Auto) 0.1 0.0-7.0 % Basophils (%) (Auto) 0.7 0.0-2.0 % Neutrophils # (Auto) 5.6 1.6-8.6 10 ^3/uL Lymphocytes # (Auto) 0.4 0.4-5.4 10 ^3/uL Monocytes # (Auto) 0.5 0-1.3 10 ^3/uL Eosinophils # (Auto) 0 0-0.8 10 ^3/uL Basophils # (Auto) 0 0-0.2 10 ^3/uL Nucleated Red Blood Cells 0.0 % Sodium Level 134 L 136-145 mmol/L Potassium Level 4.2 3.5-5.1 mmol/L Chloride Level 95 L 98-107 mmol/L Carbon Dioxide Level 29 20-31 mmol/L Anion Gap 10 5-15 Blood Urea Nitrogen 14 9-23 mg/dL Creatinine 0.88 0.550-1.02 mg/dL Glomerular Filtration Rate Calc 73 >90 mL/min BUN/Creatinine Ratio 15.9 10.0-20.0 Serum Glucose 105 74-106 mg/dL Calcium Level 9.4 8.7-10.4 mg/dL B-Type Natriuretic Peptide 3942.42 0-100 pg/mL Time of 1ST Reevaluation: 13:55 Reevaluation 1ST: Unchanged Patient Education/Counseling: Diagnosis, Treatment, Prognosis Family Education/Counseling: No Family Present Additional Information MEDICAL DECISION MAKING (HIGH COMPLEXITY 37024): The patient is a 65-year-old female with a history of chronic systolic heart failure and COPD who presents with worsening shortness of breath. Her clinical condition and diagnostic findings are consistent with acute on chronic systolic heart failure with impending respiratory failure. Data Reviewed / Independent Interpretation: I independently reviewed all diagnostic studies: CBC: benign, no leukocytosis or anemia contributing to dyspnea. BMP: benign without electrolyte disturbances or renal dysfunction contributing to symptoms. Troponin: elevated at 40, concerning for myocardial strain or demand ischemia in the setting of acute heart failure. BNP: 3942, markedly elevated and consistent with acute decompensation. EKG: independently interpreted; nonischemic, no ST elevations or arrhythmias. Chest X-ray: independently interpreted; shows pulmonary vascular congestion, consistent with volume overload and CHF exacerbation. The patient arrived with increased work of breathing and rising oxygen requirement above her baseline. These findings place her at high risk for respiratory failure, arrhythmia, or hemodynamic compromise. Assessment, Differential & Management: Differential diagnosis included acute on chronic heart failure exacerbation, COPD exacerbation, pneumonia, pulmonary edema, pulmonary embolism, arrhythmia, and metabolic causes of dyspnea. Given her exam, history, elevated BNP, pulmonary vascular congestion on imaging, and response to therapy, acute on chronic systolic heart failure is the leading diagnosis. Management in the ED included: IV Lasix to promote diuresis and reduce pulmonary congestion Duoneb nebulizer treatment for COPD component and airway support Supplemental oxygen titrated due to worsening hypoxia Continuous monitoring for clinical deterioration or need for ventilatory support Serial reassessment of respiratory effort, perfusion, and hemodynamics Given her worsening shortness of breath, elevated BNP and troponin, and increased oxygen requirement, she is at risk for impending respiratory failure and requires inpatient admission for continued diuresis, cardiac monitoring, and respiratory support. I discussed the case with the admitting team, who agrees with admission. Risk / Disposition: This presentation involves a high-risk condition with potential for rapid decompensation. The diagnostic evaluation, management interventions, and decision for admission meet High-Complexity MDM criteria. CRITICAL CARE TIME 39 MINUTES A total of 39 minutes of critical care time was provided, exclusive of separately billable procedures. Critical care was necessary due to the immediate risk of life-threatening deterioration from acute on chronic systolic heart failure with increasing oxygen requirement and impending respiratory failure. Critical care activities included: Frequent bedside assessment of respiratory status and work of breathing Escalation and titration of supplemental oxygen Interpretation of EKG, labs, and imaging Initiation of IV diuretics (Lasix) Administration and monitoring of bronchodilator therapy Monitoring for arrhythmia, hypoxia, or hemodynamic instability Review and integration of cardiac biomarker abnormalities Coordination with nursing staff and the hospital admission team High-intensity medical decision making throughout the patients ED stay The patient was at risk for respiratory collapse, malignant arrhythmia, and decompensated heart failure, warranting critical care interventions. SEPSIS Sepsis Screen Date sepsis recognized/suspect: Sep 14, 2025 Time Sepsis recognized/suspect: 1245 Recent Procedure: No On Antibiotic Therapy: No Respiratory Rate >20: Yes Heart Rate >90: No Temp<36 C (96.8 F) or >38.3 C: No SBP <90 or MAP <65 mmHG: No New Acute Mental Status Change: No Is the patient on CPAP, BIPAP,: No Physician Orders Chest Portable (09/14/25 12:01) Urinalysis (09/14/25 12:01) Electrocardigram (09/14/25 12:01) Troponin-I Hs (09/14/25 15:01) Electrocardigram (09/14/25 13:01) Electrocardigram (09/14/25 15:01) Furosemide Injection (Lasix Injection) (09/14/25 16:30) Albuterol Medneb (Ventolin Medneb) (09/14/25 16:30) Ipratropium Medneb (Atrovent Medneb) (09/14/25 16:30) Vital Signs Date Time Temp Pulse Resp B/P (MAP) Pulse Ox O2 Delivery O2 Flow Rate FiO2 09/14/25 12:39 98.3 80 32 131/72 99 98.3 09/14/25 12:11 79 Laboratory Tests Test 09/14/25 12:57 White Blood Count 6.6 10^3/uL (4.4-10.8) Departure 1 Departure Time of Disposition: 16:32 Impression: Primary Impression: Acute on chronic systolic heart failure Additional Impression: Acute dyspnea Disposition: ADMITTED INPATIENT Admit to: Tele Condition: Guarded Critical Care Note Critical Care Time?: Yes Stability Stability form required: No I personally scribed for KASHIF CLARKE MD ([email or web address]) on 09/14/25 at 14:40. Electronically submitted by Aaron Ackerman ([email or web address]). KASHIF CLARKE MD Sep 14, 2025 14:40
[2025-09-14] MEDS: ALBUTEROL SULF 2.5 MG/0.5ML(0.5%) NEB SOLN NEB ONE (16:46)
[2025-09-14] MEDS: IPRATROPIUM BROM 0.5 MG/2.5ML INH SOL NEB ONE (16:46)
[2025-09-14] MEDS: FUROSEMIDE 40 MG/4 ML VIAL IV ONE (17:11)
[2025-09-14 19:28] VITALS: PULSE 76; RESP 29; O2SAT 97
[2025-09-14] MEDS ORDERED: DOCUSATE SOD 100 MG CAP PO PRN (20:15)
[2025-09-14] MEDS ORDERED: HYDROcodone-ACET 5/325MG TAB PO PRN (20:15)
[2025-09-14 20:45] VITALS: BP 115/78; PULSE 80; RESP 20; TEMP 97.8; O2SAT 96
--- NOTE | 2025-09-14 21:26 | DVHHP2 ---
History of Present Illness Reason for Visit: Acute on chronic systolic heart failure History of Present Illness The patient is a 65-year-old female with multiple past medical history including CHF, CVA, [place], and hypertension who presented to [facility] ED with complaint of shortness of breaths. Patient reports having had difficulty breathing when she took off home O2 for 1 hour and walk outside, she started to have shortness of breath, increased work of breathing, and prompted her to call 911. Patient was seen and evaluated in the ED, laboratory data shows WBC 6.6, platelets 234, sodium 134, potassium 4.2, BUN 14, creatinine 0.88, GFR 73, glucose 105, calcium 9.4, BNP 39.42, troponin 43, blood pressure 120/75, heart rate 83, temperature 97.9 F, O2 saturation 94% on oxygen. Chest x-ray revealing pulmonary vascular congestion. Patient was started on IV Lasix, please see medication orders section in the computer. On my assessment, patient denied chest pain, no headache, dizziness, currently on oxygen, diaphoresis, no diarrhea, nausea, vomiting, fever, no chills. Patient was admitted for further evaluation and medical management. Past Medical History Anxiety, CHF (EF 20%), CVA, HTN, [place], Thyroid, Cardiomyopathy Past Surgical History Pacemaker Family History Reviewed, noncontributory to the management of this case. Past Social History The patient lives at home, denies smoking, alcohol or illicit drugs abuse. Review of Systems Constitutional: Yes: Weakness; No: Fever, Chills, Sweats, Malaise, Other Eyes: No: Pain, Vision change, Conjunctivae inflammation, Eyelid inflammation, Other, Redness ENT: No: Ear pain, Ear discharge, Nose pain, Nose discharge, Nose congestion, Mouth pain, Mouth swelling, Throat pain, Throat swelling, Other Respiratory: Shortness of breath, Other (SOB at rest); No: Cough, Dry, SOB with excertion, Wheezing, Hemoptysis, Pleuritic Pain, Sputum, Wheezing Cardiovascular: No: Chest Pain, Palpitations, Orthopnea, Paroxysmal Noc. Dyspnea, Edema, Lt Headedness, Other Gastrointestinal: No: Nausea, Vomiting, Abdominal Pain, Diarrhea, Constipation, Melena, Hematochezia, Other Genitourinary: No Dysuria, No Frequency, No Incontinence, No Hematuria, No Retention, No Other Musculoskeletal: No: other, neck pain, shoulder pain, arm pain, back pain, hand pain, leg pain, foot pain Skin: No: Rash, Lesions, Jaundice, Bruising, Other Neurological: No: Weakness, Numbness, Incoordination, Change in speech, Confusion, Seizures, Other Allergies: Coded Allergies: NO KNOWN ALLERGIES (Unverified , 05/19/21) Medications Current Medications Medications Dose Ordered Sig/Tucker Route Start Time Stop Time Status Last Admin Dose Admin Furosemide 40 mg DAILY IV 09/15/25 10:00 Albuterol 2.5 mg Q4HPRN PRN NEB 09/14/25 20:15 Ipratropium [place] 0.5 mg Q4HPRN PRN NEB 09/14/25 20:15 Atorvastatin Calcium 20 mg HS PO 09/14/25 22:00 Carvedilol 12.5 mg Q12HR PO 09/14/25 22:00 Apixaban 5 mg BID PO 09/14/25 22:00 Sodium Chloride 10 ml Q8HR IV 09/14/25 22:00 Acetaminophen/ Hydrocodone Bitart 1 tab Q4HP PRN PO 09/14/25 20:15 Ondansetron HCl 4 mg Q4HP PRN IV 09/14/25 20:15 Docusate Sodium 100 mg BIDPRN PRN PO 09/14/25 20:15 Acetaminophen 650 mg Q6HP PRN PO 09/14/25 20:15 Exam Vital Signs Vital Signs Date Time Temp Pulse Resp B/P (MAP) Pulse Ox O2 Delivery O2 Flow Rate FiO2 09/14/25 20:45 97.8 80 20 115/78 96 3.0 32 97.8 09/14/25 19:28 Nasal Cannula* General Appearance: Alert, Oriented X3, Cooperative, No acute distress HEENT: Atraumatic, PERRLA, EOMI, Mucous membr. moist/pink Respiratory: Normal air movement Cardiovascular: Regular rate, Normal S1, Normal S2, No murmurs Abdominal: Normal bowel sounds, Soft, No tenderness, No hepatospenomegaly, No masses Extremities: No clubbing, No cyanosis, No edema, Normal pulses, No tenderness/swelling Skin: No rashes, No significant lesion Neuro: Normal speech, Normal tone, Sensation intact, Cranial nerves 3-12 NL, Reflexes 2+, Other (Generalized weakness) Psych/Mental Status: Mental status NL, Mood NL Labs/Xrays Labs Test 09/14/25 16:30 09/14/25 12:57 Range/Units Troponin I High Sensitivity 43 *H </=34 ng/L White Blood Count 6.6 4.4-10.8 10^3/uL Red Blood Count 4.27 4.0-5.20 10^6/uL Hemoglobin 12.6 12.2-16.2 g/dL Hematocrit 38.6 36.0-46.0 % Mean Corpuscular Volume 90.3 80.0-100.0 fL Mean Corpuscular Hemoglobin 29.4 28.0-32.0 pg Mean Corpuscular Hemoglobin Concent 32.6 32.0-36.0 g/dL Red Cell Distribution Width 18.1 H 11.8-14.3 % Platelet Count 234 140-450 10^3/uL Mean Platelet Volume 9.0 6.9-10.8 fL Neutrophils (%) (Auto) 85.7 H 37.0-80.0 % Lymphocytes (%) (Auto) 5.5 L 10.0-50.0 % Monocytes (%) (Auto) 8.0 0.0-12.0 % Eosinophils (%) (Auto) 0.1 0.0-7.0 % Basophils (%) (Auto) 0.7 0.0-2.0 % Neutrophils # (Auto) 5.6 1.6-8.6 10 ^3/uL Lymphocytes # (Auto) 0.4 0.4-5.4 10 ^3/uL Monocytes # (Auto) 0.5 0-1.3 10 ^3/uL Eosinophils # (Auto) 0 0-0.8 10 ^3/uL Basophils # (Auto) 0 0-0.2 10 ^3/uL Nucleated Red Blood Cells 0.0 % Sodium Level 134 L 136-145 mmol/L Potassium Level 4.2 3.5-5.1 mmol/L Chloride Level 95 L 98-107 mmol/L Carbon Dioxide Level 29 20-31 mmol/L Anion Gap 10 5-15 Blood Urea Nitrogen 14 9-23 mg/dL Creatinine 0.88 0.550-1.02 mg/dL Glomerular Filtration Rate Calc 73 >90 mL/min BUN/Creatinine Ratio 15.9 10.0-20.0 Serum Glucose 105 74-106 mg/dL Calcium Level 9.4 8.7-10.4 mg/dL B-Type Natriuretic Peptide 3942.42 0-100 pg/mL PATIENT: ELEAZAR DICKENS THERESAACCT: [id number] UNIT: [id number] : 1960 LOC: ER ROOM / BED: / AGE / SEX: 65 / F ADM STATUS: REG ER SERVICE 1201 ORDERING PHYSICIAN: KASHIF CLARKE MD PROCEDURE(s): CXRP - CHEST PORTABLE REASON: sob ORDER NUMBER(s): [id number], ACCESSION NUMBER(s): [id number] CLINICAL HISTORY: sob TECHNIQUE: Single view of the chest was obtained. COMPARISON: XY CHEST PORTABLE on DOS: 08/15/25, XY CHEST PORTABLE on DOS: 08/13/25, XY CHEST PORTABLE on DOS: 08/11/25, XY CHEST PORTABLE on DOS: 04/23/25, XY CHEST PORTABLE on DOS: 04/20/25 FINDINGS: Noted left chest wall pacing device. A right PICC terminates at the cavoatrial junction The heart size is moderately enlarged with pulmonary vascular congestion. There are bibasilar opacities. IMPRESSION: Pulmonary vascular congestion. Bibasilar opacities, likely small pleural effusions and atelectasis SEPSIS Sepsis Screen Date sepsis recognized/suspect: Sep 14, 2025 Time Sepsis recognized/suspect: 2014 Recent Procedure: No On Antibiotic Therapy: No Respiratory Rate >20: Yes Heart Rate >90: No Temp<36 C (96.8 F) or >38.3 C: No SBP <90 or MAP <65 mmHG: No New Acute Mental Status Change: No Is the patient on CPAP, BIPAP,: No Physician Orders Furosemide Injection (Lasix Injection) (09/15/25 10:00) Albuterol Medneb (Ventolin Medneb) (09/14/25 20:15) Ipratropium Medneb (Atrovent Medneb) (09/14/25 20:15) Atorvastatin (Lipitor) (09/14/25 22:00) Carvedilol Tablet (Coreg Tablet) (09/14/25 22:00) Apixaban (Eliquis) (09/14/25 22:00) Allergies (09/14/25 20:10) Code Status (09/14/25 20:10) Sodium Chloride Lock (Saline Lock Ns) (09/14/25 22:00) Oxygen Per Hour (09/14/25 20:10) Hydrocodone-Acet 5/325mg Tab ([place]andrews /32 (09/14/25 20:15) Docusate Sodium Capsule (Colace Capsule) (09/14/25 20:15) Complete Blood Count (09/15/25 04:00) Comprehensive Metabolic Panel (09/15/25 04:00) Cardiac Diet-2gna,Lofat,Lochol (09/15/25 Breakfast) Echo 2d Mode Cardiac Dop (09/14/25 20:10) Condition: Serious (09/14/25 20:10) Acetaminophen Tablet (Tylenol Tablet) (09/14/25 20:15) Bedrest With Bathroom Privileg (09/14/25 20:10) Maintain Bed Rest (09/14/25 20:10) Sequential Compression Device (09/14/25 ) Ondansetron Hcl (Zofran) (09/14/25 20:15) Vital Signs Date Time Temp Pulse Resp B/P (MAP) Pulse Ox O2 Delivery O2 Flow Rate FiO2 09/14/25 20:45 97.8 80 20 115/78 96 3.0 32 97.8 09/14/25 20:00 81 09/14/25 19:28 76 29 97 Nasal Cannula* 3 32 09/14/25 19:28 97.8 76 29 115/78 (90) 97 97.8 09/14/25 18:00 83 21 120/75 (90) 94 09/14/25 17:11 112/70 09/14/25 16:44 18 98 Nasal Cannula* 3 32 09/14/25 16:00 97.9 80 30 107/64 (78) 97 97.9 Laboratory Tests Test 09/14/25 12:57 White Blood Count 6.6 10^3/uL (4.4-10.8) Medications Medications Dose Ordered Sig/Tucker Route Start Time Stop Time Status Last Admin Dose Admin Albuterol 5 mg ONCE ONCE NEB 09/14/25 16:30 09/14/25 16:37 DC 09/14/25 16:46 5 MG Furosemide 40 mg ONCE ONCE IV 09/14/25 16:30 09/14/25 16:37 DC 09/14/25 17:11 40 MG Ipratropium [place] 0.5 mg ONCE ONCE NEB 09/14/25 16:30 09/14/25 16:37 DC 09/14/25 16:46 0.5 MG Assessment/Plan Assessment/Plan Acute on chronic systolic heart failure Acute dyspnea Generalized weakness Plan 1. Admit to telemetry unit 2. Breathing treatment 3. Pain control management 4. Management of fluids and electrolytes 5. Consultation for Cardiology/hospitalist 6. Diagnostic tests chest x-ray 7. DVT prophylaxis-on aspirin 8. Repeat labs CBC, CMP in a.m. 9. Continue with current medical management 10. Treatment plan discussed with patient and RN. Patient verbalized understanding. Plan discussed with: Patient, Other (RN) My Orders Orders - SYEDA RUSSO DNP Procedure Category Date Status Time Furosemide Injection PHA 09/15/25 In Process (Lasix Injection) 10:00 Albuterol Medneb PHA 09/14/25 In Process (Ventolin Medneb) 20:15 Ipratropium Medneb PHA 09/14/25 In Process (Atrovent Medneb) 20:15 Atorvastatin (Lipitor) PHA 09/14/25 In Process 22:00 Carvedilol Tablet PHA 09/14/25 In Process (Coreg Tablet) 22:00 Apixaban (Eliquis) PHA 09/14/25 In Process 22:00 Allergies ANGLE 09/14/25 In Process 20:10 Code Status CODE 09/14/25 Transmitted 20:10 Sodium Chloride Lock PHA 09/14/25 In Process (Saline Lock Ns) 22:00 Oxygen Per Hour RT 09/14/25 Transmitted 20:10 Hydrocodone-Acet PHA 09/14/25 In Process 5/325mg Tab ([place]andrews 20:15 Docusate Sodium PHA 09/14/25 In Process Capsule (Colace 20:15 Complete Blood Count LAB 09/15/25 Verified 04:00 Comprehensive LAB 09/15/25 Verified Metabolic Panel 04:00 Cardiac DIET 09/15/25 Transmitted Diet-2gna,Lofat,Lochol Breakfast Echo 2d Mode Cardiac US 09/14/25 Logged DOP 20:10 Condition: Serious ANGLE 09/14/25 In Process 20:10 Acetaminophen Tablet PHA 09/14/25 In Process (Tylenol Tablet) 20:15 Bedrest With Bathroom ANGLE 09/14/25 In Process Privileg 20:10 Maintain Bed Rest ANGLE 09/14/25 In Process 20:10 Sequential ANGLE 09/14/25 In Process Compression Device Ondansetron Hcl PHA 09/14/25 In Process (Zofran) 20:15 Problem List: (1) Acute on chronic systolic heart failure (2) Acute dyspnea (3) Generalized weakness Date of Service: Sep 14, 2025 Billing Provider: SYEDA RUSSO DNP Common Visit Codes: [id number] INP/OBS CARE (HIGH) SYEDA RUSSO DNP Sep 14, 2025 21:26
[2025-09-14] MEDS ORDERED: MORPHINE SULFATE INJ 2 MG/ml SYRG IV PRN (21:30)
[2025-09-14] MEDS ORDERED: NITROGLYCERIN 0.4 MG SL TAB SL PRN (21:30)
[2025-09-14] MEDS: ATORVASTATIN 20 MG TAB PO SCH (21:59)
[2025-09-14] MEDS: CARVEDILOL 12.5 MG TAB PO SCH (22:01)
[2025-09-14] MEDS: SODIUM CHLOR 0.9% PF (SALINE LOCK) 10ML VIAL/SYR IV SCH (22:01)
[2025-09-14] MEDS: APIXABAN 5 MG TAB PO SCH (22:01)
[2025-09-14 23:11] LABS: Urine Protein, UAD Negative (Negative)
[2025-09-15] MEDS: MIDODRINE HCL 10 MG TAB PO ONE (02:33)
[2025-09-15 05:34] LABS: Hematocrit 31.7 % (36.0-46.0); Hemoglobin 10.6 g/dL (12.2-16.2); Mean Corpuscular Hemoglobin 30.1 pg (28.0-32.0); Mean Corpuscular Volume 90.1 fL (80.0-100.0); Nucleated Red Blood Cells % 0.1 %
[2025-09-15 05:52] LABS: Alanine Aminotransferase 11 U/L (7-40); Albumin 3.3 g/dL (3.2-4.8); Alkaline Phosphatase 90 U/L (46-116); Anion Gap 10 (5-15); BUN/Creatinine Ratio 15.9 (10.0-20.0); Blood Urea Nitrogen 14 mg/dL (9-23); Calcium 8.7 mg/dL (8.7-10.4); Carbon Dioxide 30 mmol/L (20-31); Glucose 94 mg/dL (74-106); Sodium 137 mmol/L (136-145); Total Protein 6.4 g/dL (5.7-8.2)
[2025-09-15] MEDS: MIDODRINE HCL 10 MG TAB PO SCH (06:00)
[2025-09-15 06:02] LABS: Bilirubin, Total 1.3 mg/dL (0.2-1.0); Chloride 97 mmol/L (98-107); Potassium 3.4 mmol/L (3.5-5.1)
[2025-09-15 06:49] VITALS: O2SAT 99
[2025-09-15 07:45] VITALS: PULSE 68; RESP 24; O2SAT 94
[2025-09-15] MEDS: FUROSEMIDE 40 MG/4 ML VIAL IV SCH (10:00)
--- NOTE | 2025-09-15 13:04 | DVHPN2 ---
Reviewed: Care Plan, H&P, Labs, Medications, Previous Orders, Radiology Changes from previous H/P or p: No Changes Eyes: No Pain, No Vision change, No Conjunctivae inflammation, No Eyelid inflammation, No Other, No Redness ENT: No Ear pain, No Ear discharge, No Nose pain, No Nose discharge, No Nose congestion, No Mouth pain, No Mouth swelling, No Throat pain, No Throat swelling, No Other Cardiovascular: No Chest Pain, No Palpitations, No Orthopnea, No Paroxysmal Noc. Dyspnea, No Edema, No Lt Headedness, No Other Respiratory: Shortness of breath, Other Gastrointestinal: No Nausea, No Vomiting, No Abdominal Pain, No Diarrhea, No Constipation, No Melena, No Hematochezia, No Other Genitourinary: No Dysuria, No Frequency, No Incontinence, No Hematuria, No Retention, No Other Musculoskeletal: No other, No neck pain, No shoulder pain, No arm pain, No back pain, No hand pain, No leg pain, No foot pain Skin: No Rash, No Lesions, No Jaundice, No Bruising, No Other Objective Vitals Vital Signs Date Time Temp Pulse Resp B/P (MAP) Pulse Ox O2 Delivery O2 Flow Rate FiO2 09/15/25 12:05 97.7 70 18 94/54 (67) 97 97.7 09/15/25 07:45 Nasal Cannula* 2 28 Intake/Output Intake and Output 09/15/25 07:00 Output Total 400 ml Balance -400 ml Output Urine Total 400 ml Medications Current Medications Medications Dose Ordered Sig/Tucker Route Start Time Stop Time Status Last Admin Dose Admin Furosemide 40 mg DAILY IV 09/15/25 10:00 Albuterol 2.5 mg Q4HPRN PRN NEB 09/14/25 20:15 Ipratropium [place] 0.5 mg Q4HPRN PRN NEB 09/14/25 20:15 Atorvastatin Calcium 20 mg HS PO 09/14/25 22:00 09/14/25 21:59 20 MG Carvedilol 12.5 mg Q12HR PO 09/14/25 22:00 09/14/25 22:01 12.5 MG Apixaban 5 mg BID PO 09/14/25 22:00 09/15/25 09:56 5 MG Sodium Chloride 10 ml Q8HR IV 09/14/25 22:00 09/15/25 06:00 10 ML Acetaminophen/ Hydrocodone Bitart 1 tab Q4HP PRN PO 09/14/25 20:15 Ondansetron HCl 4 mg Q4HP PRN IV 09/14/25 20:15 Docusate Sodium 100 mg BIDPRN PRN PO 09/14/25 20:15 Acetaminophen 650 mg Q6HP PRN PO 09/14/25 20:15 Nitroglycerin 0.4 mg Q5MINP PRN SL 09/14/25 21:30 Morphine Sulfate 2 mg Q30M PRN IV 09/14/25 21:30 Midodrine 10 mg TID@0600,1200,1800 PO 09/15/25 06:00 09/15/25 12:04 10 MG Laboratory Results Laboratory Tests 09/15/25 04:43 Chemistry Test 09/15/25 04:43 Albumin 3.3 g/dL (3.2-4.8) Calcium Level 8.7 mg/dL (8.7-10.4) Total Protein 6.4 g/dL (5.7-8.2) LFT Test 09/15/25 04:43 Alanine Aminotransferase (ALT) 11 U/L (7-40) Alkaline Phosphatase 90 U/L (46-116) Aspartate Amino Transferase (AST) 18 U/L (13-40) Total Bilirubin 1.3 mg/dL (0.2-1.0) H Urinalysis Test 09/14/25 22:50 Urine Color Colorless (Yellow) Urine Clarity Clear (Clear) Urine pH 6.5 (5.0-9.0) Urine Specific [place] 1.005 (1.001-1.035) Urine Protein Negative (Negative) Urine Ketones Negative (Negative) Urine Blood Negative /uL (Negative) Urine Nitrite Negative (Negative) Urine Bilirubin Negative (Negative) Urine Urobilinogen Normal mg/dL (Negative) Urine Leukocyte Esterase 3+ /uL (Negative) Urine RBC 2 /hpf (0 - 4) Urine Microscopic WBC 25 /HPF (0-5) H Urine Squamous Epithelial Cells Few /hpf (<5) Urine Bacteria None seen /hpf (None Seen) Urine Glucose Normal mg/dL (Normal) Labs and/or images reviewed: Labs reviewed by me, Image(s) reviewed by me Assessment/Plan Assessment/Plan Acute Hypoxic respiratory failure: Oxygen by nasal cannula Acute bilateral community-acquired pneumonia: Rocephin azithromycin Acute CHF exacerbation with BNP 3900, Lasix, cardiology consult for Dr. Potts Generalized weakness History of CVA Hypertension History of [place] Hypothyroidism Cardiomyopathy UTI continue Rocephin Time spent 70 minutes Advanced care planning time 20 minutes Patient is full code Plan discussed with: Patient My Orders Orders - CALDERON DAVIS MD Procedure Category Date Status Time Ceftriaxone Ivpb PHA 09/16/25 Transmitted Rocephin 09:00 Ceftriaxone Ivpb PHA 09/15/25 Transmitted Rocephin 13:00 Doxycycline PHA 09/15/25 Transmitted 100mg/100ml 13:00 Date of Service: Sep 15, 2025 Billing Provider: CALDERON DAVIS MD Common Visit Codes: [id number] CARE 30-74 MIN CALDERON DAVIS MD Sep 15, 2025 13:04
[2025-09-15] MEDS: DOXYCYCLINE 100MG/100ML 100 ML IV ONE (14:45)
[2025-09-15 18:33] VITALS: PULSE 67; RESP 18; O2SAT 99
[2025-09-15] MEDS: IPRATROPIUM BROM 0.5 MG/2.5ML INH SOL NEB PRN (18:33)
[2025-09-15] MEDS: ALBUTEROL SULF 2.5 MG/0.5ML(0.5%) NEB SOLN NEB PRN (18:33)
[2025-09-15 18:41] VITALS: PULSE 63; RESP 18; O2SAT 100
--- NOTE | 2025-09-15 19:39 | DVHSR ---
APPROVED REPORT EXAM: Two-dimensional and M-mode echocardiogram with Doppler and color Doppler. Blood Pressure: 97/51 mmHg INDICATION CHF Exacerbation RISK FACTORS Height: 5' 3", Weight: 135 DIMENSIONS LVDd 7.2 (3.8-5.7cm) LA (2D) 5.0 (1.9-4.0cm) Aortic Root 3.1 (2.0-3.7cm) LVDs 7.0 (2.5-4.0cm) LA (MM) (1.9-4.0cm) Aortic Cusp Exc 1.6 (1.5-2.0cm) EF (%) 10.0 (55-70%) Rt. Atrium 6.5 (1.9-4.0cm) Asc. Aorta cm IVSd 1.2 (0.7-1.1cm) RV (D) (1.8-2.4cm) PWd 1.3 (0.7-1.1cm) Mitral Valve Mitral Mitral Stenosis E wave 1.50m/s MV Mean GR. mmHg A wave 0.90m/s MV Peak GR. mmHg E/A ratio 1.7 2D MVA cm2 Aortic Valve Aortic Valve Aortic Stenosis V1 0.30m/s AO Mean GR. 2mmHg V2 0.90m/s AO Peak GR. 4mmHg LVOT Diameter 2.4 (1.8-2.4cm) Doppler BRADLEY 1.51cm2 AI P 1/2 Time 487.17ms Tricuspid Valve TR Velocity 4.00m/s RVSP 70mmHg Conclusion DILATED CARDIOMYOPATHY LV EF IS ONLY 10% SEVERE GLOBAL HYPOKINESIS OF ALL CARDIAC CHAMBERS PACEMAKER IN RIGHT CARDIAC CHAMBERS CRITICAL PULMONARY HYPERTENSION RVSP IS 70 MM OF HG AND IS VERY HIGH NO EFFUSION
[2025-09-15 19:40] VITALS: PULSE 64; RESP 20; O2SAT 99
--- NOTE | 2025-09-15 22:25 | DVHINCON2 ---
Date of service: Sep 15, 2025 Referring Physician Darian Reason for Consultation CHF exacerbation History of Present Illness This is a 65-year-old female with a past medical history including CHF, CVA, VT, and hypertension who presented to the ED with a complaint of shortness of breaths. Patient reports having had difficulty breathing when she took off home O2 for 1 hour and walk outside, she started to have shortness of breath, increased work of breathing, and prompted her to call 911. WBC 6.6, PLT 234, K 4.2, BUN 14, LENS MOLD SETTER 0.88, GFR 73, GLUC 105, CA 9.4, BNP 39.42, TROP 43. EKG: nonischemic, no ST elevations or arrhythmias. Chest x-ray shows pulmonary vascular congestion. Patient was admitted to the hospital. I am asked to consult on this patient. Family History: Autoimmune disorder G8 SISTER Cancer (Prostate) G8 FATHER FH: VT (myocardial infarction) G8 BROTHER FH: prostate cancer G8 FATHER Family history: Diabetes mellitus G8 BROTHER Other blood disorders G8 SISTER Psychiatric condition G8 SISTER Thyroid disease G8 SISTER Allergies: Coded Allergies: NO KNOWN ALLERGIES (Unverified , 05/19/21) Home Meds Reported Medications Bumetanide (Bumex) 2 Mg Tab, 1 MG PO DAILY 08/13/25 Apixaban Base (ELIQUIS) 5 Mg Tab, 1 TAB PO BID for 90 Days, #180 08/12/25 Sacubitril-Valsartan (Entresto 24-26 mg) 1 Tab Tab, 1 TAB PO DAILY for 90 Days, #90 08/12/25 Levothyroxine Sodium (Levothyroxine Sodium) 88 Mcg Tab, 1 TAB PO DAILY for 90 Days, #90 08/12/25 Furosemide (Furosemide) 20 Mg Tab, 1 TAB PO DAILY for 30 Days, #30 08/12/25 Empagliflozin (Jardiance) 10 Mg Tab, 1 TAB PO DAILY for 30 Days, #30 08/12/25 Rosuvastatin Calcium (Rosuvastatin Calcium) 10 Mg Tab, 1 TAB PO DAILY for 90 Days, #90 08/12/25 Potassium Chloride (Potassium Chloride ER) 10 Meq Tab, 1 TAB PO DAILY for 30 Days, #30 08/12/25 Lorazepam (Lorazepam) 1 Mg Tab, 1 TAB PO TID for 30 Days, #90 08/12/25 Methocarbamol (Methocarbamol) 500 Mg Tab, 1 TAB PO DAILY for 30 Days, #30 08/12/25 Losartan Potassium (Losartan Potassium) 25 Mg Tab, 12.5 MG PO DAILY for 90 Days, #45 08/12/25 Amiodarone HCl (Amiodarone HCl) 200 Mg Tab, 1 TAB PO DAILY for 90 Days, #90 04/05/25 Multiple Vitamin (Multivitamins) Tab, 1 TAB PO DAILY, #30 TAB 2 Refills 03/11/25 Aspirin (Aspirin Low Dose) 81 Mg Chw, 81 MG PO DAILY, TAB.CHEW 03/11/25 Digoxin (Digoxin) 125 Mcg Tab, 1 TAB PO DAILY for 90 Days, #90 03/11/25 Spironolactone (Spironolactone) 25 Mg Tab, 1 TAB PO DAILY for 30 Days, #30 03/11/25 Current Medications Current Medications Medications (Trade) Dose Ordered Sig/Tucker Route PRN Reason Start Time Stop Time Status Last Admin Furosemide (Lasix Injection) 40 mg DAILY IV 09/15/25 10:00 Atorvastatin Calcium (Lipitor) 20 mg HS PO 09/14/25 22:00 09/14/25 21:59 Carvedilol (Coreg Tablet) 12.5 mg Q12HR PO 09/14/25 22:00 09/14/25 22:01 Apixaban (Eliquis) 5 mg BID PO 09/14/25 22:00 09/15/25 09:56 Sodium Chloride (Saline Lock Ns) 10 ml Q8HR IV 09/14/25 22:00 09/15/25 13:33 Nitroglycerin (Ntrostat Sublingual) 0.4 mg Q5MINP PRN SL FOR CHEST PAIN 09/14/25 21:30 Morphine Sulfate 2 mg Q30M PRN IV FOR CHEST PAIN 09/14/25 21:30 Midodrine (Proamatine Tablet) 10 mg TID@0600,1200,1800 PO 09/15/25 06:00 09/15/25 17:48 Ceftriaxone Sodium 50 ml @ 100 mls/hr DAILY@09 IV 09/16/25 09:00 Doxycycline Hyclate 100 ml @ 50 mls/hr BID IV 09/15/25 22:00 Review of Systems Constitutional: denies: chills, diaphoresis, fatigue, fever, malaise, sweats, weakness, others EENTM: denies: blurred vision, double vision, ear bleeding, ear discharge, ear drainage, ear pain, ear ringing, eye pain, eye redness, hearing loss, mouth pain, mouth swelling, nasal discharge, nose bleeding, nose congestion, nose pain, photophobia, tearing, throat pain, throat swelling, voice changes, others Respiratory: reports: shortness of breath, SOB with excertion; denies: cough, hemoptysis, orthopnea, SOB at rest, stridor, wheezing, others Cardiovascular: denies: chest pain, dizzy spells, diaphoresis, Dyspnea on exertion, edema, irregular heart beat, left arm pain, lightheadedness, palpitations, PND, syncope, others Gastrointestinal: denies: abdomen distended, abdominal pain, blood streaked bowels, constipated, diarrhea, dysphagia, difficulty swallowing, hematemesis, melena, nausea, poor appetite, poor fluid intake, rectal bleeding, rectal pain, vomiting, others Genitourinary: denies: abnormal vagina bleeding, burning, dyspareunia, dysuria, flank pain, frequency, hematuria, incontinence, pain, , vagina discharge, urgency, others Neurological: denies: dizziness, fainting, headache, left sided numbness, left sided weakness, numbness, paresthesia, pre-existing deficit, right sided numbness, right sided weakness, seizure, speech problems, tingling, tremors, weakness, others Musculoskeletal: denies: back pain, gout, joint pain, joint swelling, muscle pa in, muscle stiffness, neck pain, others Integumetry: denies: bruises, change in color, change in hair/nails, dryness, laceration, lesions, lumps, rash, wounds, others Allergic/Immunocompromised: denies: Difficulty Healing, Frequent Infections, Hives, Itching, others Hematologic/Lymphatic: denies: anemia, blood clots, easy bleeding, easy bruising, swollen glands, others Endocrine: denies: excessive hunger, excessive sweating, excessive thirst, excessive urination, flushing, intolerance to cold, intolerance to heat, unexplained weight gain, unexplained weight loss, others Psychiatric: denies: anxiety, bipolar disorder, depression, hopeless, panic disorder, schizophrenia, sleepless, suicidal, others All Other Systems: Reviewed and Negative Vital Signs Vital Signs Date Time Temp Pulse Resp B/P (MAP) Pulse Ox O2 Delivery O2 Flow Rate FiO2 09/15/25 19:42 68 18 102/67 (79) 98 09/15/25 19:40 Nasal Cannula* 3 32 09/15/25 19:40 97.8 97.8 Physical Exam GENERAL: Alert and oriented x 3. No acute distress. EYES: PERRL, EOMI. Anicteric. HENT: Moist mucous membranes. LUNGS: Clear to auscultation bilaterally. CARDIOVASCULAR: Regular rate and rhythm. ABDOMEN: Soft, nontender and nondistended. EXTREMITIES: No edema. NEUROLOGIC: No focal neurological deficits. SKIN: Warm, dry. Labs/Diagnostic Data Labs Test 09/15/25 04:43 09/14/25 22:50 09/14/25 16:30 09/14/25 12:57 Range/Units White Blood Count 6.9 4.4-10.8 10^3/uL Red Blood Count 3.52 L 4.0-5.20 10^6/uL Hemoglobin 10.6 #L 12.2-16.2 g/dL Hematocrit 31.7 #L 36.0-46.0 % Mean Corpuscular Volume 90.1 80.0-100.0 fL Mean Corpuscular Hemoglobin 30.1 28.0-32.0 pg Mean Corpuscular Hemoglobin Concent 33.4 32.0-36.0 g/dL Red Cell Distribution Width 17.9 H 11.8-14.3 % Platelet Count 199 140-450 10^3/uL Mean Platelet Volume 9.0 6.9-10.8 fL Neutrophils (%) (Auto) 85.2 H 37.0-80.0 % Lymphocytes (%) (Auto) 4.8 L 10.0-50.0 % Monocytes (%) (Auto) 9.6 0.0-12.0 % Eosinophils (%) (Auto) 0.1 0.0-7.0 % Basophils (%) (Auto) 0.3 0.0-2.0 % Neutrophils # (Auto) 5.9 1.6-8.6 10 ^3/uL Lymphocytes # (Auto) 0.3 L 0.4-5.4 10 ^3/uL Monocytes # (Auto) 0.7 0-1.3 10 ^3/uL Eosinophils # (Auto) 0 0-0.8 10 ^3/uL Basophils # (Auto) 0 0-0.2 10 ^3/uL Nucleated Red Blood Cells 0.1 % Sodium Level 137 136-145 mmol/L Potassium Level 3.4 L 3.5-5.1 mmol/L Chloride Level 97 L 98-107 mmol/L Carbon Dioxide Level 30 20-31 mmol/L Anion Gap 10 5-15 Blood Urea Nitrogen 14 9-23 mg/dL Creatinine 0.88 0.550-1.02 mg/dL Glomerular Filtration Rate Calc 73 >90 mL/min BUN/Creatinine Ratio 15.9 10.0-20.0 Serum Glucose 94 74-106 mg/dL Calcium Level 8.7 8.7-10.4 mg/dL Total Bilirubin 1.3 H 0.2-1.0 mg/dL Aspartate Amino Transferase (AST) 18 13-40 U/L Alanine Aminotransferase (ALT) 11 7-40 U/L Alkaline Phosphatase 90 46-116 U/L Total Protein 6.4 5.7-8.2 g/dL Albumin 3.3 3.2-4.8 g/dL Urine Color Colorless Yellow Urine Clarity Clear Clear Urine pH 6.5 5.0-9.0 Urine Specific [place] 1.005 1.001-1.035 Urine Protein Negative Negative Urine Ketones Negative Negative Urine Blood Negative Negative /uL Urine Nitrite Negative Negative Urine Bilirubin Negative Negative Urine Urobilinogen Normal Negative mg/dL Urine Leukocyte Esterase 3+ Negative /uL Urine RBC 2 0 - 4 /hpf Urine Microscopic WBC 25 H 0-5 /HPF Urine Squamous Epithelial Cells Few <5 /hpf Urine Bacteria None seen None Seen /hpf Urine Glucose Normal Normal mg/dL Troponin I High Sensitivity 43 *H </=34 ng/L B-Type Natriuretic Peptide 3942.42 0-100 pg/mL Assessment Acute hypoxic respiratory failure. Acute bilateral community-acquired pneumonia. Acute CHF exacerbation. Generalized weakness. History of CVA. Hypertension. History of VT. Hypothyroidism. Cardiomyopathy. UTI. Plan/Recommendation I agree with your ongoing assessment and care of plan. Echocardiogram. Morphine and [place] for pain management. Eliquis. Lipitor. Coreg. Diuretics with Lasix. IV antibiotics as ordered. Additional plan as per the hospital course. A total of 45 minutes was spent reviewing the patient record, examining the patient, making a diagnostic and therapeutic plan, discussing this plan with medical personnel, following up on diagnostic studies and following the patient for clinical stability excluding any and all procedures. At least 50% of this time was spent in direct, [id number] contact. Plan discussed with: Patient RACH HALL MD Sep 15, 2025 21:34
[2025-09-15] MEDS: DOXYCYCLINE 100MG/100ML 100 ML IV SCH (22:36)
[2025-09-16] VITALS (10 sets, daily range): BP systolic 95–120; BP diastolic 59–73; PULSE 64–70; RESP 16–19; TEMP 96.9–98.1; O2SAT 92–100
[2025-09-16] MEDS: ONDANSETRON HCL 4 MG/2 ML VIAL IV PRN (08:43)
--- NOTE | 2025-09-16 09:03 | ECG ---
[facility] Test Date: 2025-09-14 Test Time: 12:11:38 Pat Name: ELEAZAR DICKENS Department: ED Room: 0215T Gender: F [employer] Attendant: ARISTEO : 1960 Requested By: KASHIF CLARKE Order Number: [id number] Reading MD: Paulino Purvis Measurements Intervals [place] Rate: 79 P: 58 [place]: 51 QRS: -86 QRSD: 231 T: 100 QT: 528 QTc: 606 Interpretive Statements Atrial-sensed ventricular-paced complexes No further analysis attempted due to paced rhythm Electronically Signed On 09-17-2025 17:51:49 PST by Paulino Purvis Please click the below link to view image of tracing.
--- NOTE | 2025-09-16 13:54 | DVHPN2 ---
Progress Note Date Seen: Sep 16, 2025 Medical Necessity Reason Pt with a Central, PICC or Fol: No Subjective Patient reports: No new complaints Review of Systems: HEENT:Normal, CVS:Normal, RESPIRATORY:Normal, GI:Normal, :Normal, MSK:Normal, NEURO:Normal Objective vital signs Vital Sign Date Time Temp Pulse Resp B/P (MAP) Pulse Ox O2 Delivery O2 Flow Rate FiO2 09/16/25 12:30 97.4 69 18 98/70 (79) 95 97.4 09/16/25 12:28 Nasal Cannula* 2 28 Total Intake and Output 09/15/25 09/15/25 09/16/25 15:00 23:00 07:00 Intake Total 50 ml 100 ml 100 ml Balance 50 ml 100 ml 100 ml medications Current Medications Medications Dose Ordered Sig/Tucker Route Start Time Stop Time Status Last Admin Dose Admin Furosemide 40 mg DAILY IV 09/15/25 10:00 09/16/25 09:32 40 MG Albuterol 2.5 mg Q4HPRN PRN NEB 09/14/25 20:15 09/16/25 00:52 2.5 MG Ipratropium [place] 0.5 mg Q4HPRN PRN NEB 09/14/25 20:15 09/16/25 00:52 0.5 MG Atorvastatin Calcium 20 mg HS PO 09/14/25 22:00 09/15/25 22:37 20 MG Carvedilol 12.5 mg Q12HR PO 09/14/25 22:00 09/16/25 09:31 12.5 MG Apixaban 5 mg BID PO 09/14/25 22:00 09/16/25 09:31 5 MG Sodium Chloride 10 ml Q8HR IV 09/14/25 22:00 09/16/25 06:26 10 ML Acetaminophen/ Hydrocodone Bitart 1 tab Q4HP PRN PO 09/14/25 20:15 Ondansetron HCl 4 mg Q4HP PRN IV 09/14/25 20:15 09/16/25 08:43 4 MG Docusate Sodium 100 mg BIDPRN PRN PO 09/14/25 20:15 Acetaminophen 650 mg Q6HP PRN PO 09/14/25 20:15 Nitroglycerin 0.4 mg Q5MINP PRN SL 09/14/25 21:30 Morphine Sulfate 2 mg Q30M PRN IV 09/14/25 21:30 Midodrine 10 mg TID@0600,1200,1800 PO 09/15/25 06:00 09/16/25 11:48 10 MG Ceftriaxone Sodium 50 ml @ 100 mls/hr DAILY@09 IV 09/16/25 09:00 09/16/25 08:45 100 MLS/HR Doxycycline Hyclate 100 ml @ 50 mls/hr BID IV 09/15/25 22:00 09/16/25 09:33 50 MLS/HR Examination: GENERAL:Normal, HEENT:Normal, NECK:Normal, LUNGS:Normal, LUNGS:Abnormal (rales), CVS:Normal, ABDOMEN:Normal, MSK:Normal, MSK:Abnormal (edema++), SKIN:Normal, NEURO:Normal, :Normal laboratory and microbiology Laboratory Tests 09/15/25 04:43 Test 09/15/25 04:43 Range/Units Serum Glucose 94 74-106 mg/dL Problem List/Assessment/Plan Problem List/Assessment/Plan * Acute on chronic systolic heart failure: milrinone, lasix drip * Hypothyroidism: cont meds * History of AICD placement. * Acute and chronic respiratory failure. * Moderate protein malnutrition. *dvt: on eliquis, doppler advance care planning- full code- time spent 18m ins Plan discussed with: Patient My Orders My Orders Orders - SMITHA ALDRIDGE MD Procedure Category Date Status Time Carvedilol Tablet PHA 09/16/25 Verified (Coreg Tablet) 22:00 Date of Service: Sep 16, 2025 Billing Provider: SMITHA ALDRIDGE MD Common Visit Codes: [id number] INP/OBS CARE(HIGH) Secondary Visit Codes: [id number] CARE PLAN 30 MINUTES SMITHA ALDRIDGE MD Sep 16, 2025 13:54
[2025-09-16] MEDS: POTASSIUM CHL 20 Meq TABLET PO ONE (14:07)
[2025-09-16] MEDS ORDERED: BUME1TAB3 PO (14:17)
[2025-09-16] MEDS: FUROSEMIDE INJECTION 100 MG in SODIUM CHL 0.9% 100 ML IV SCH (15:16)
[2025-09-16] MEDS: CARVEDILOL 3.125 MG TAB PO SCH (22:00)
[2025-09-16] MEDS: SACUBITRIL-VALSARTAN 24mg/26mg TAB PO SCH (22:00)
[2025-09-17] VITALS (9 sets, daily range): BP systolic 102–125; BP diastolic 58–77; PULSE 60–102; RESP 16–17; TEMP 97.7–98.2; O2SAT 96–98
[2025-09-17] MEDS: LEVOTHYROXINE SODIUM 88 MCG TAB PO SCH (06:38)
[2025-09-17 07:47] LABS: Anion Gap 11 (5-15); Calcium 8.8 mg/dL (8.7-10.4); Carbon Dioxide 28 mmol/L (20-31); Chloride 100 mmol/L (98-107); Potassium 3.1 mmol/L (3.5-5.1); Sodium 139 mmol/L (136-145)
[2025-09-17 07:52] LABS: Glucose 85 mg/dL (74-106)
[2025-09-17 07:53] LABS: BUN/Creatinine Ratio 18.3 (10.0-20.0); Blood Urea Nitrogen 17 mg/dL (9-23); Magnesium 1.8 mg/dL (1.6-2.6)
--- NOTE | 2025-09-17 10:13 | DVHPN2 ---
Progress Note Date Seen: Sep 17, 2025 Medical Necessity Reason Pt with a Central, PICC or Fol: No Subjective Patient reports: No new complaints Review of Systems: HEENT:Normal, CVS:Normal, RESPIRATORY:Normal, GI:Normal, :Normal, MSK:Normal, NEURO:Normal Objective vital signs Vital Sign Date Time Temp Pulse Resp B/P (MAP) Pulse Ox O2 Delivery O2 Flow Rate FiO2 09/17/25 08:46 98.1 70 17 107/77 (87) 96 98.1 09/16/25 22:20 Nasal Cannula* 2 28 Total Intake and Output 09/16/25 09/16/25 09/17/25 15:00 23:00 07:00 Intake Total 50 ml 250 ml 100 ml Balance 50 ml 250 ml 100 ml medications Current Medications Medications Dose Ordered Sig/Tucker Route Start Time Stop Time Status Last Admin Dose Admin Albuterol 2.5 mg Q4HPRN PRN NEB 09/14/25 20:15 09/16/25 00:52 2.5 MG Ipratropium [place] 0.5 mg Q4HPRN PRN NEB 09/14/25 20:15 09/16/25 00:52 0.5 MG Atorvastatin Calcium 20 mg HS PO 09/14/25 22:00 09/16/25 22:59 20 MG Apixaban 5 mg BID PO 09/14/25 22:00 09/16/25 22:59 5 MG Sodium Chloride 10 ml Q8HR IV 09/14/25 22:00 09/17/25 06:00 10 ML Acetaminophen/ Hydrocodone Bitart 1 tab Q4HP PRN PO 09/14/25 20:15 Ondansetron HCl 4 mg Q4HP PRN IV 09/14/25 20:15 09/16/25 08:43 4 MG Docusate Sodium 100 mg BIDPRN PRN PO 09/14/25 20:15 Acetaminophen 650 mg Q6HP PRN PO 09/14/25 20:15 Nitroglycerin 0.4 mg Q5MINP PRN SL 09/14/25 21:30 Morphine Sulfate 2 mg Q30M PRN IV 09/14/25 21:30 Midodrine 10 mg TID@0600,1200,1800 PO 09/15/25 06:00 09/17/25 06:39 10 MG Ceftriaxone Sodium 50 ml @ 100 mls/hr DAILY@09 IV 09/16/25 09:00 09/17/25 09:10 100 MLS/HR Carvedilol 3.125 mg BID PO 09/16/25 22:00 Amiodarone HCl 200 mg DAILY PO 09/17/25 10:00 Empaglifozin 10 mg DAILY PO 09/17/25 10:00 Furosemide 100 mg/ Sodium Chloride 110 ml @ 11 mls/hr Q10H IV 09/16/25 13:45 09/17/25 00:46 11 MLS/HR Sacubitril/ Valsartan 0.5 tab BID PO 09/16/25 22:00 Levothyroxine Sodium 88 mcg QAM@0600 PO 09/17/25 06:00 09/17/25 06:38 88 MCG Spironolactone 25 mg DAILY PO 09/17/25 10:00 Examination: GENERAL:Normal, HEENT:Normal, NECK:Normal, LUNGS:Normal, CVS:Normal, ABDOMEN:Normal, MSK:Normal, MSK:Abnormal (EDEMA++), SKIN:Normal, NEURO:Normal, :Normal laboratory and microbiology Laboratory Tests 09/17/25 06:10 09/15/25 04:43 Test 09/17/25 06:10 Range/Units Serum Glucose 85 74-106 mg/dL Problem List/Assessment/Plan Problem List/Assessment/Plan * Acute on chronic systolic heart failure: milrinone, lasix drip * Hypothyroidism: cont meds * History of AICD placement. * Acute and chronic respiratory failure. * Moderate protein malnutrition. *dvt: on eliquis, doppler advance care planning- full code- time spent 18m ins Plan discussed with: Patient My Orders My Orders Orders - SMITHA ALDRIDGE MD Procedure Category Date Status Time * Cardiology Consult CONS 09/16/25 Transmitted 13:44 Amiodarone Tablet PHA 09/17/25 In Process (Cordarone Tablet) 10:00 Empagliflozin PHA 09/17/25 In Process (Jardiance) 10:00 Sodium Chl 0.9% PHA 09/16/25 In Process (So... W/Furosemide 13:45 Sacubitril-Valsartan PHA 09/16/25 In Process (Entresto 24-26 Mg 22:00 Spironolactone PHA 09/17/25 In Process (Aldactone) 10:00 Levothyroxine Tablet PHA 09/17/25 In Process (Synthroid Tablet) 06:00 Carvedilol Tablet PHA 09/16/25 In Process (Coreg Tablet) 22:00 Date of Service: Sep 17, 2025 Billing Provider: SMITHA ALDRIDGE MD Common Visit Codes: [id number] INP/OBS CARE(HIGH) SMITHA ALDRIDGE MD Sep 17, 2025 10:12
[2025-09-17] MEDS: ACETAMINOPHEN 325 MG TAB PO PRN (10:17)
[2025-09-17] MEDS: AMIODARONE HCL 200 MG TAB PO SCH (10:18)
[2025-09-17] MEDS: EMPAGLIFLOZIN 10 MG TAB PO SCH (10:18)
[2025-09-17] MEDS: SPIRONOLACTONE 25 MG TAB PO SCH (10:38)
[2025-09-17] MEDS: MAGNESIUM SULFATE 1GM/100ML 100 ML IV SCH (11:15)
[2025-09-17] MEDS: POTASSIUM CHL 20 Meq TABLET PO ONE (11:24)
--- NOTE | 2025-09-17 14:10 | DVHPN2 ---
Progress Note - Dictate Date Seen: Sep 15, 2025 Medical Necessity Reason Pt with a Central, PICC or Fol: No Subjective PT WELL KNOWN TO ME WITH ACUTE DECOMPENSATION OF HR HFrEF TRNSPLANT CANDIDATE CALLED BY DR STONE ABOUT HER ADMISSION IN THE ER DILATED CM EF <20% [facility] RESULTS: * Left main, patent. * Left anterior descending artery was patent. * Circumflex was patent. * Right coronary artery was patent. * The patient with dilated cardiomyopathy with EF less than 20% with an LVEDP elevated at 22 mmHg. Left ventricular systolic pressure 110. [facility] LAST YEAR NEGATIVE ACUTE DECOMPENSATION OF HFrEF v vital signs Vital Sign Date Time Temp Pulse Resp B/P (MAP) Pulse Ox O2 Delivery O2 Flow Rate FiO2 09/17/25 11:17 98.3 09/17/25 11:16 56 102/70 09/17/25 10:05 96 Nasal Cannula 2.0 09/17/25 10:05 28 09/17/25 08:46 17 Total Intake and Output 09/16/25 09/16/25 09/17/25 15:00 23:00 07:00 Intake Total 50 ml 250 ml 100 ml Balance 50 ml 250 ml 100 ml medications Current Medications Medications Dose Ordered Sig/Tucker Route Start Time Stop Time Status Last Admin Dose Admin Albuterol 2.5 mg Q4HPRN PRN NEB 09/14/25 20:15 09/16/25 00:52 2.5 MG Ipratropium [place] 0.5 mg Q4HPRN PRN NEB 09/14/25 20:15 09/16/25 00:52 0.5 MG Atorvastatin Calcium 20 mg HS PO 09/14/25 22:00 09/16/25 22:59 20 MG Apixaban 5 mg BID PO 09/14/25 22:00 09/17/25 10:18 5 MG Sodium Chloride 10 ml Q8HR IV 09/14/25 22:00 09/17/25 06:00 10 ML Acetaminophen/ Hydrocodone Bitart 1 tab Q4HP PRN PO 09/14/25 20:15 Ondansetron HCl 4 mg Q4HP PRN IV 09/14/25 20:15 09/16/25 08:43 4 MG Docusate Sodium 100 mg BIDPRN PRN PO 09/14/25 20:15 Acetaminophen 650 mg Q6HP PRN PO 09/14/25 20:15 09/17/25 10:17 650 MG Nitroglycerin 0.4 mg Q5MINP PRN SL 09/14/25 21:30 Morphine Sulfate 2 mg Q30M PRN IV 09/14/25 21:30 Midodrine 10 mg TID@0600,1200,1800 PO 09/15/25 06:00 09/17/25 12:50 10 MG Ceftriaxone Sodium 50 ml @ 100 mls/hr DAILY@09 IV 09/16/25 09:00 09/17/25 09:10 100 MLS/HR Carvedilol 3.125 mg BID PO 09/16/25 22:00 09/17/25 10:16 3.125 MG Amiodarone HCl 200 mg DAILY PO 09/17/25 10:00 09/17/25 10:18 200 MG Empaglifozin 10 mg DAILY PO 09/17/25 10:00 09/17/25 10:18 10 MG Furosemide 100 mg/ Sodium Chloride 110 ml @ 11 mls/hr Q10H IV 09/16/25 13:45 09/17/25 10:39 11 MLS/HR Sacubitril/ Valsartan 0.5 tab BID PO 09/16/25 22:00 Levothyroxine Sodium 88 mcg QAM@0600 PO 09/17/25 06:00 09/17/25 06:38 88 MCG Spironolactone 25 mg DAILY PO 09/17/25 10:00 09/17/25 10:38 25 MG Potassium Chloride 40 meq DAILY PO 09/18/25 10:00 Magnesium Oxide 400 mg DAILY PO 09/18/25 10:00 laboratory and microbiology Laboratory Tests 09/17/25 06:10 09/15/25 04:43 Test 09/17/25 06:10 Range/Units Serum Glucose 85 74-106 mg/dL Problem List ACUTE DECOMPENSATION OF HR HFrEF TRNSPLANT CANDIDATE CALLED BY DR STONE ABOUT HER ADMISSION IN THE ER DILATED CM EF <20% [facility] RESULTS: * Left main, patent. * Left anterior descending artery was patent. * Circumflex was patent. * Right coronary artery was patent. * The patient with dilated cardiomyopathy with EF less than 20% with an LVEDP elevated at 22 mmHg. Left ventricular systolic pressure 110. [facility] LAST YEAR NEGATIVE ACUTE DECOMPENSATION OF HFrEF Assessment/Plan MILRINONE DRIP DIURESIS WITH DRIP HOLD ENTRESTO TITRATE SYNTHROID BECAUSE OF AMIODARONE Plan discussed with: Patient, Spouse KALLIE GLASGOW MD Sep 17, 2025 14:10
--- NOTE | 2025-09-17 14:11 | DVHPN2 ---
Progress Note - Dictate Date Seen: Sep 17, 2025 Medical Necessity Reason Pt with a Central, PICC or Fol: No Subjective PT WELL KNOWN TO ME WITH ACUTE DECOMPENSATION OF HR HFrEF TRNSPLANT CANDIDATE CALLED BY DR STONE ABOUT HER ADMISSION IN THE ER DILATED CM EF <20% [facility] RESULTS: * Left main, patent. * Left anterior descending artery was patent. * Circumflex was patent. * Right coronary artery was patent. * The patient with dilated cardiomyopathy with EF less than 20% with an LVEDP elevated at 22 mmHg. Left ventricular systolic pressure 110. [facility] LAST YEAR NEGATIVE ACUTE DECOMPENSATION OF HFrEF v vital signs Vital Sign Date Time Temp Pulse Resp B/P (MAP) Pulse Ox O2 Delivery O2 Flow Rate FiO2 09/17/25 11:17 98.3 09/17/25 11:16 56 102/70 09/17/25 10:05 96 Nasal Cannula 2.0 09/17/25 10:05 28 09/17/25 08:46 17 Total Intake and Output 09/16/25 09/16/25 09/17/25 15:00 23:00 07:00 Intake Total 50 ml 250 ml 100 ml Balance 50 ml 250 ml 100 ml medications Current Medications Medications Dose Ordered Sig/Tucker Route Start Time Stop Time Status Last Admin Dose Admin Albuterol 2.5 mg Q4HPRN PRN NEB 09/14/25 20:15 09/16/25 00:52 2.5 MG Ipratropium [place] 0.5 mg Q4HPRN PRN NEB 09/14/25 20:15 09/16/25 00:52 0.5 MG Atorvastatin Calcium 20 mg HS PO 09/14/25 22:00 09/16/25 22:59 20 MG Apixaban 5 mg BID PO 09/14/25 22:00 09/17/25 10:18 5 MG Sodium Chloride 10 ml Q8HR IV 09/14/25 22:00 09/17/25 06:00 10 ML Acetaminophen/ Hydrocodone Bitart 1 tab Q4HP PRN PO 09/14/25 20:15 Ondansetron HCl 4 mg Q4HP PRN IV 09/14/25 20:15 09/16/25 08:43 4 MG Docusate Sodium 100 mg BIDPRN PRN PO 09/14/25 20:15 Acetaminophen 650 mg Q6HP PRN PO 09/14/25 20:15 09/17/25 10:17 650 MG Nitroglycerin 0.4 mg Q5MINP PRN SL 09/14/25 21:30 Morphine Sulfate 2 mg Q30M PRN IV 09/14/25 21:30 Midodrine 10 mg TID@0600,1200,1800 PO 09/15/25 06:00 09/17/25 12:50 10 MG Ceftriaxone Sodium 50 ml @ 100 mls/hr DAILY@09 IV 09/16/25 09:00 09/17/25 09:10 100 MLS/HR Carvedilol 3.125 mg BID PO 09/16/25 22:00 09/17/25 10:16 3.125 MG Amiodarone HCl 200 mg DAILY PO 09/17/25 10:00 09/17/25 10:18 200 MG Empaglifozin 10 mg DAILY PO 09/17/25 10:00 09/17/25 10:18 10 MG Furosemide 100 mg/ Sodium Chloride 110 ml @ 11 mls/hr Q10H IV 09/16/25 13:45 09/17/25 10:39 11 MLS/HR Sacubitril/ Valsartan 0.5 tab BID PO 09/16/25 22:00 Levothyroxine Sodium 88 mcg QAM@0600 PO 09/17/25 06:00 09/17/25 06:38 88 MCG Spironolactone 25 mg DAILY PO 09/17/25 10:00 09/17/25 10:38 25 MG Potassium Chloride 40 meq DAILY PO 09/18/25 10:00 Magnesium Oxide 400 mg DAILY PO 09/18/25 10:00 laboratory and microbiology Laboratory Tests 09/17/25 06:10 09/15/25 04:43 Test 09/17/25 06:10 Range/Units Serum Glucose 85 74-106 mg/dL Problem List ACUTE DECOMPENSATION OF HR HFrEF TRNSPLANT CANDIDATE CALLED BY DR STONE ABOUT HER ADMISSION IN THE ER DILATED CM EF <20% [facility] RESULTS: * Left main, patent. * Left anterior descending artery was patent. * Circumflex was patent. * Right coronary artery was patent. * The patient with dilated cardiomyopathy with EF less than 20% with an LVEDP elevated at 22 mmHg. Left ventricular systolic pressure 110. [facility] LAST YEAR NEGATIVE ACUTE DECOMPENSATION OF HFrEF Assessment/Plan MILRINONE DRIP DIURESIS WITH DRIP HOLD ENTRESTO TITRATE SYNTHROID BECAUSE OF AMIODARONE call transplant service at [facility] for transfer REVIEWED LABS: NA, CL, AND BUN AE NORMAL Plan discussed with: Patient KALLIE GLASGOW MD Sep 17, 2025 14:11
[2025-09-18] VITALS (11 sets, daily range): BP systolic 95–115; BP diastolic 58–73; PULSE 60–96; RESP 16–20; TEMP 97.7–98.6; O2SAT 97–99
[2025-09-18 06:33] LABS: Sodium 138 mmol/L (136-145)
[2025-09-18 06:34] LABS: Anion Gap 10 (5-15)
[2025-09-18 06:37] LABS: Calcium 8.7 mg/dL (8.7-10.4); Carbon Dioxide 31 mmol/L (20-31); Chloride 97 mmol/L (98-107); Potassium 3.0 mmol/L (3.5-5.1)
[2025-09-18 06:39] LABS: Glucose 95 mg/dL (74-106)
[2025-09-18 06:40] LABS: BUN/Creatinine Ratio 12.6 (10.0-20.0); Blood Urea Nitrogen 13 mg/dL (9-23); Magnesium 2.0 mg/dL (1.6-2.6)
[2025-09-18] MEDS ORDERED: POTASSIUM CHL 20 Meq TABLET PO ONE (10:00)
--- NOTE | 2025-09-18 10:02 | DVHPN2 ---
Progress Note Date Seen: Sep 18, 2025 Medical Necessity Reason Pt with a Central, PICC or Fol: No Subjective Patient reports: No new complaints Review of Systems: HEENT:Normal, CVS:Normal, RESPIRATORY:Normal, GI:Normal, :Normal, MSK:Normal, NEURO:Normal Objective vital signs Vital Sign Date Time Temp Pulse Resp B/P (MAP) Pulse Ox O2 Delivery O2 Flow Rate FiO2 09/18/25 05:00 98.3 60 16 107/66 (80) 97 98.3 09/17/25 20:00 Nasal Cannula* 2 28 Total Intake and Output 09/17/25 09/17/25 09/18/25 15:00 23:00 07:00 Intake Total 225 ml 700 ml Output Total 900 ml Balance -675 ml 700 ml medications Current Medications Medications Dose Ordered Sig/Tucker Route Start Time Stop Time Status Last Admin Dose Admin Albuterol 2.5 mg Q4HPRN PRN NEB 09/14/25 20:15 09/16/25 00:52 2.5 MG Ipratropium [place] 0.5 mg Q4HPRN PRN NEB 09/14/25 20:15 09/16/25 00:52 0.5 MG Atorvastatin Calcium 20 mg HS PO 09/14/25 22:00 09/17/25 22:15 20 MG Apixaban 5 mg BID PO 09/14/25 22:00 09/17/25 22:15 5 MG Sodium Chloride 10 ml Q8HR IV 09/14/25 22:00 09/18/25 05:17 10 ML Acetaminophen/ Hydrocodone Bitart 1 tab Q4HP PRN PO 09/14/25 20:15 Ondansetron HCl 4 mg Q4HP PRN IV 09/14/25 20:15 09/17/25 20:22 4 MG Docusate Sodium 100 mg BIDPRN PRN PO 09/14/25 20:15 Acetaminophen 650 mg Q6HP PRN PO 09/14/25 20:15 09/17/25 10:17 650 MG Nitroglycerin 0.4 mg Q5MINP PRN SL 09/14/25 21:30 Morphine Sulfate 2 mg Q30M PRN IV 09/14/25 21:30 Midodrine 10 mg TID@0600,1200,1800 PO 09/15/25 06:00 09/18/25 05:17 10 MG Ceftriaxone Sodium 50 ml @ 100 mls/hr DAILY@09 IV 09/16/25 09:00 09/17/25 09:10 100 MLS/HR Carvedilol 3.125 mg BID PO 09/16/25 22:00 09/17/25 22:15 3.125 MG Amiodarone HCl 200 mg DAILY PO 09/17/25 10:00 09/17/25 10:18 200 MG Empaglifozin 10 mg DAILY PO 09/17/25 10:00 09/17/25 10:18 10 MG Furosemide 100 mg/ Sodium Chloride 110 ml @ 11 mls/hr Q10H IV 09/16/25 13:45 09/17/25 20:25 11 MLS/HR Levothyroxine Sodium 88 mcg QAM@0600 PO 09/17/25 06:00 09/18/25 05:17 88 MCG Spironolactone 25 mg DAILY PO 09/17/25 10:00 09/17/25 10:38 25 MG Potassium Chloride 40 meq DAILY PO 09/18/25 10:00 Magnesium Oxide 400 mg DAILY PO 09/18/25 10:00 Examination: GENERAL:Normal, HEENT:Normal, NECK:Normal, LUNGS:Normal, CVS:Normal, ABDOMEN:Normal, MSK:Normal, SKIN:Normal, NEURO:Normal, :Normal laboratory and microbiology Laboratory Tests 09/18/25 04:54 09/15/25 04:43 Test 09/18/25 04:54 Range/Units Serum Glucose 95 74-106 mg/dL Problem List/Assessment/Plan Problem List/Assessment/Plan * Acute on chronic systolic heart failure: milrinone, lasix drip * Hypothyroidism: cont meds, check tsh * History of AICD placement. * Acute and chronic respiratory failure. * Moderate protein malnutrition. *dvt: on eliquis, doppler advance care planning- full code- time spent 18m ins Plan discussed with: Patient My Orders My Orders Orders - SMITHA ALDRIDGE MD Procedure Category Date Status Time Potassium Er Tablet PHA 09/18/25 In Process (Klor-Con Tablet) 10:00 Magnesium Oxide PHA 09/18/25 In Process Tablet (Mag-Ox Tablet) 10:00 Maintain Fluid ANGLE 09/17/25 In Process Restrictions 10:07 Potassium Er Tablet PHA 09/18/25 Verified (Klor-Con Tablet) 10:00 Basic Metabolic Panel LAB 09/19/25 Verified 06:00 Chest Portable XY 09/19/25 Verified 06:00 Thyroid Stimulating LAB 09/19/25 Verified Hormone 05:00 Date of Service: Sep 18, 2025 Billing Provider: SMITHA ALDRIDGE MD Common Visit Codes: [id number] INP/OBS CARE(HIGH) SMITHA ALDRIDGE MD Sep 18, 2025 10:02
[2025-09-18] MEDS: POTASSIUM CHL 20 Meq TABLET PO SCH (11:15)
[2025-09-18] MEDS: MAGNESIUM OXIDE 400 MG TAB PO SCH (11:15)
--- NOTE | 2025-09-18 13:51 | DVHPN2 ---
Progress Note - Dictate Date Seen: Sep 18, 2025 Medical Necessity Reason Pt with a Central, PICC or Fol: No Subjective PT WELL KNOWN TO ME WITH ACUTE DECOMPENSATION OF HR HFrEF TRNSPLANT CANDIDATE CALLED BY DR STONE ABOUT HER ADMISSION IN THE ER DILATED CM EF <20% [facility] RESULTS: * Left main, patent. * Left anterior descending artery was patent. * Circumflex was patent. * Right coronary artery was patent. * The patient with dilated cardiomyopathy with EF less than 20% with an LVEDP elevated at 22 mmHg. Left ventricular systolic pressure 110. [facility] LAST YEAR NEGATIVE ACUTE DECOMPENSATION OF HFrEF v vital signs Vital Sign Date Time Temp Pulse Resp B/P (MAP) Pulse Ox O2 Delivery O2 Flow Rate FiO2 09/18/25 12:59 98.0 70 16 95/58 (70) 98 98.0 09/17/25 20:00 Nasal Cannula* 2 28 Total Intake and Output 09/17/25 09/17/25 09/18/25 15:00 23:00 07:00 Intake Total 225 ml 700 ml Output Total 900 ml Balance -675 ml 700 ml medications Current Medications Medications Dose Ordered Sig/Tucker Route Start Time Stop Time Status Last Admin Dose Admin Albuterol 2.5 mg Q4HPRN PRN NEB 09/14/25 20:15 09/16/25 00:52 2.5 MG Ipratropium [place] 0.5 mg Q4HPRN PRN NEB 09/14/25 20:15 09/16/25 00:52 0.5 MG Atorvastatin Calcium 20 mg HS PO 09/14/25 22:00 09/17/25 22:15 20 MG Apixaban 5 mg BID PO 09/14/25 22:00 09/18/25 11:15 5 MG Sodium Chloride 10 ml Q8HR IV 09/14/25 22:00 09/18/25 11:21 10 ML Acetaminophen/ Hydrocodone Bitart 1 tab Q4HP PRN PO 09/14/25 20:15 Ondansetron HCl 4 mg Q4HP PRN IV 09/14/25 20:15 09/17/25 20:22 4 MG Docusate Sodium 100 mg BIDPRN PRN PO 09/14/25 20:15 Acetaminophen 650 mg Q6HP PRN PO 09/14/25 20:15 09/17/25 10:17 650 MG Nitroglycerin 0.4 mg Q5MINP PRN SL 09/14/25 21:30 Morphine Sulfate 2 mg Q30M PRN IV 09/14/25 21:30 Midodrine 10 mg TID@0600,1200,1800 PO 09/15/25 06:00 09/18/25 11:27 10 MG Ceftriaxone Sodium 50 ml @ 100 mls/hr DAILY@09 IV 09/16/25 09:00 09/18/25 09:00 100 MLS/HR Carvedilol 3.125 mg BID PO 09/16/25 22:00 09/17/25 22:15 3.125 MG Amiodarone HCl 200 mg DAILY PO 09/17/25 10:00 09/18/25 11:17 200 MG Empaglifozin 10 mg DAILY PO 09/17/25 10:00 09/18/25 10:00 10 MG Furosemide 100 mg/ Sodium Chloride 110 ml @ 11 mls/hr Q10H IV 09/16/25 13:45 09/17/25 20:25 11 MLS/HR Levothyroxine Sodium 88 mcg QAM@0600 PO 09/17/25 06:00 09/18/25 05:17 88 MCG Spironolactone 25 mg DAILY PO 09/17/25 10:00 09/18/25 11:15 25 MG Potassium Chloride 40 meq DAILY PO 09/18/25 10:00 09/18/25 11:15 40 MEQ Magnesium Oxide 400 mg DAILY PO 09/18/25 10:00 09/18/25 11:15 400 MG laboratory and microbiology Laboratory Tests 09/18/25 04:54 09/15/25 04:43 Test 09/18/25 04:54 Range/Units Serum Glucose 95 74-106 mg/dL Problem List ACUTE DECOMPENSATION OF HR HFrEF TRNSPLANT CANDIDATE CALLED BY DR STONE ABOUT HER ADMISSION IN THE ER DILATED CM EF <20% [facility] RESULTS: * Left main, patent. * Left anterior descending artery was patent. * Circumflex was patent. * Right coronary artery was patent. * The patient with dilated cardiomyopathy with EF less than 20% with an LVEDP elevated at 22 mmHg. Left ventricular systolic pressure 110. [facility] LAST YEAR NEGATIVE ACUTE DECOMPENSATION OF HFrEF Assessment/Plan MILRINONE DRIP DIURESIS WITH DRIP HOLD ENTRESTO TITRATE SYNTHROID BECAUSE OF AMIODARONE call transplant service at [facility] for transfer DISCUSSED WITH [facility] REVIEWED LABS: NA, ANION GAP, AND BUN ARE NORMAL Plan discussed with: Patient KALLIE GLASGOW MD Sep 18, 2025 13:50
--- NOTE | 2025-09-18 15:44 | CONS ---
Pharmacy Clinical Information: CHF Fallout 09/18/2025 From Heart Failure Fallout Report on CQM Application, Patient Belle Garcia ([id number]) is a 65 YO F with PMH CHF, CVA, NV, and hypertension who presented to the ED with SOB and diagnosed with an acute CHF exacerbation. Cardiomegaly was seen on 09/14 CXR, HFrEF with LVEF = <20% and is a transplant candidate.BNP elevated on labs (BNP = 3942.42). Home meds include Entresto 24-26 1 tab PO BID, Losartan 25 mg PO daily, Spironolactone 25 mg daily PO, and empagliflozin 10 mg PO daily. Duplicate order with Entresto (Sacubitril-Valsartan) and Losartan as both are ARBs. Per AHA Heart failure guidelines GDMT includes ACEi OR ARB OR ARNI,Beta Osmani, MRA, and SGLT2i, as well as diuretics PRN. Inpatient, she is on Spironolactone 25 mg daily PO, Lasix 100 mg IV, and empagliflozin 10 mg PO daily Per Dr. Patterson hold Entresto inpatient. Consider adding a Beta-Osmani once patient is stable (metoprolol succinate OR bisoprolol OR carvedilol) and restarting EITHER Entresto OR Losartan. [email or web address]://www.ahajournals.org/doi/10.1161/CIR.[email or web address] JOSSELINE URIOSTEGUI [facility] RESIDENT Sep 18, 2025 15:44
--- NOTE | 2025-11-04 19:09 | DVHDS ---
DATE OF DISCHARGE: 09/18/2025 DISCHARGE DIAGNOSES: * Congestive heart failure. * Dilated cardiomyopathy. * Acute decompensation. HOSPITAL COURSE: The patient is on multiple inotropic drips, including milrinone, and was admitted to the hospital because of acute decompensation. The patient is now being transferred to [facility] to undergo heart transplantation. The patient has been accepted for heart transplantation at [facility]. The patient is now being euvolemic. Repeat angiography was done about a month ago, which shows patent coronary anatomy. The patient's left ventricular dimensions and pulmonary pressures are within normal limits. The patient now has been accepted for heart transplant. She is being taken to [facility] for heart transplant, being on a waiting list. She is stable at the time of discharge. DISPOSITION: To [facility]. Follow up with me after she receives a new orthotopic heart transplant. Leonardo Allen MD SA/[facility]AN[facility] TID: [id number] RECEIPT: [id number]
== END 2025-09-18 23:55 | disposition short-term general hospital (02) | DRG 177 ==
LOC: ER 11:30 → EDBD 11:30 → EDSEX 11:30 → TELE-CENTR 20:46 → OVERFLOW 21:25 → TELE-CENTR 09-16 12:35
PROVIDERS: ADMIT Internal Medicine; ATTEND Internal Medicine
DX: J15.69 Pneumonia due to other Gram-negative bacteria (principal); I50.23 Acute on chronic systolic (congestive) heart failure; J96.01 Acute respiratory failure with hypoxia; E44.0 Moderate protein-calorie malnutrition; I42.0 Dilated cardiomyopathy; I11.0 Hypertensive heart disease with heart failure; N39.0 Urinary tract infection, site not specified; J15.9 Unspecified bacterial pneumonia; E03.9 Hypothyroidism, unspecified; I42.9 Cardiomyopathy, unspecified; Z68.24 Body mass index [BMI] 24.0-24.9, adult; F41.9 Anxiety disorder, unspecified; I25.2 Old myocardial infarction; Z82.49 Family history of ischemic heart disease and other diseases of the circulatory system; Z83.3 Family history of diabetes mellitus; Z86.73 Personal history of transient ischemic attack (TIA), and cerebral infarction without residual deficits
CPT/HCPCS: 36415; 71045; 80048; 80053; 81001; 83735; 83880; 84484; 85025; 93005; 93306; 94640; 96374; 99291; G0378; J2405